=== PATIENT | female | born 1940 | race Caucasian/White ===

== ENCOUNTER 2022-04-29 11:15 | Outpatient (RCR) | payer MEDICARE, SELFPAY | END 2022-04-29 13:04 | disposition home or self-care (01) | PROVIDERS: PCP Family Medicine; Visit Provider Family Medicine | DX: M51.17 Intervertebral disc disorders with radiculopathy, lumbosacral region (principal) | CPT/HCPCS: 97110; 97140; 97162 ==

== ENCOUNTER 2022-05-13 10:20 | Outpatient (CLI) | payer MEDICARE, SELFPAY | END 2022-05-13 10:21 | disposition home or self-care (01) | LOC: INJ CL 10:21 | PROVIDERS: PCP Family Medicine; Visit Provider Family Medicine | DX: M54.16 Radiculopathy, lumbar region (principal); M51.36 Other intervertebral disc degeneration, lumbar region | CPT/HCPCS: 62323; J0702; Q9966 ==

== ENCOUNTER 2023-01-03 16:38 | Emergency (ER) | payer MEDICARE, SELFPAY ==
[2023-01-03 16:49] VITALS: BP 155/66; PULSE 96; RESP 16; TEMP 36.8; O2SAT 95; BMI 27.4
--- NOTE | 2023-01-03 17:24 | ED_ITS ---
HPI - General Adult General Time Seen by Provider: 17:24 Date Seen: 01/03/23 Chief complaint: Sore Throat Stated complaint: Soar throat, unable to swallow, lost voice Time Seen by Provider: 01/03/23 17:07 Source: patient and RN notes reviewed Mode of arrival: ambulatory Limitations: no limitations History of Present Illness HPI narrative: Latonya is an 82-year-old female coming in with severe sore throat prohibiting her from swallowing. She states symptoms started last night. She has not documented a fever but felt chilled earlier today. No GI symptoms with this. Maybe a little cough. She has subsequently lost her voice, developed a hoarse voice. No one else around her is ill at this time. She states they had their son in here but a week ago, ended up with a heart attack and had 3 stents placed. They just brought him home recently. She is worried he might get this. She is having a difficult time even swallowing fluids. When she swallows it hurts in her upper throat, both sides. She did get some Cepacol lozenges and that did help, was able to take 2 Tylenol about 2:00 p.m.. She states she was able to eat and drink a little then. She does note that it wears off and reviewed with her that that is going to be the likely course until she starts improving overall. Patient takes a daily diclofenac as well, avoids NSAIDs because of this. Last week she had some sinus symptoms, is unsure if it relates to current symptoms but those did seem to resolve. Related Data Home Medications Medication Instructions Recorded Confirmed albuterol sulfate 90 mcg/actuation 1 - 2 puff inhalation Q4H PRN 01/03/23 01/03/23 aerosol inhaler dyspnea estradiol 10 mcg vaginal tablet 10 mcg vaginal 3XW 01/03/23 01/03/23 (Yuvafem) losartan 50 mg tablet 50 mg PO DAILY 01/03/23 01/03/23 pregabalin 50 mg capsule 50 mg PO QPM 01/03/23 01/03/23 rosuvastatin 10 mg tablet 10 mg PO QPM 01/03/23 01/03/23 Allergies Allergy/AdvReac Type Severity Reaction Status Date / Time aluminum Allergy Verified 05/13/22 10:50 cefuroxime [From Ceftin] Allergy Verified 05/13/22 10:50 diphtheria toxoid,fluid Allergy Verified 05/13/22 10:50 doxycycline Allergy Verified 05/13/22 10:50 gabapentin Allergy Verified 05/13/22 10:50 grass pollen Allergy Verified 05/13/22 10:50 lisinopril Allergy Verified 05/13/22 10:50 mold Allergy Verified 05/13/22 10:50 Penicillins Allergy Verified 05/13/22 10:50 pneumococcal 7-valent Allergy Verified 05/13/22 10:50 conjugate to [From Prevnar] pneumococcal vaccine Allergy Verified 05/13/22 10:50 Sulfa (Sulfonamide Allergy Verified 05/13/22 10:50 Antibiotics) Review of Systems Status of ROS: Reports: 6 or more systems reviewed and unremarkable except as noted in History and below PFSH PFS Social History Smoking Status: Never smoker Do you use any of these nicotine containing products: None Second hand tobacco smoke exposure: No How often do you have a drink containing alcohol: never AUDIT-C Alcohol total score: 0 Non-prescribed substance use: denies use service: No Exam Const: Vital Signs, click to edit/add: Vital Signs - 24 hr 01/03/23 16:49 01/03/23 17:34 01/03/23 18:04 Temperature 98.2 F Pulse Rate 72 Pulse Rate [Pulse Oximeter] 96 Respiratory Rate 16 Blood Pressure 144/68 H Blood Pressure [Ri ght Upper Arm] 155/66 H Pulse Oximetry 95 94 94 Oxygen Delivery Me thod Room Air 01/03/23 18:05 Temperature Pulse Rate 70 Pulse Rate [Pulse Oximeter] Respiratory Rate Blood Pressure Blood Pressure [Ri ght Upper Arm] Pulse Oximetry 94 Oxygen Delivery Me thod Documenting provider has reviewed patient's vital signs: yes Common n ormals: no apparent distress, average body habitus, oriented x3, no limitations, healthy appearing, alert and well nourished General appearance: cooperative, comfortable, well kempt and well developed Nutritional appearance: thin Other: 82-year-old female with voice hoarseness but able to speak in complete sentences. No trismus, able to manage secretions. HENMT: Common normals: normocephalic, head/scalp atraumatic, hearing grossly normal bilaterally, external nose normal, nasal mucous membranes and turbinates normal, moist oral mucous membranes, oropharynx normal, dentition normal and gingiva normal Head and scalp: normocephalic and atraumatic Face and sinus: normal facial exam Nose: external nose normal and nasal mucous membranes and turbinates normal Mouth: oral and palatal mucosa normal, lip normal and tongue normal Throat: posterior oropharynx normal Eye: Common normals: PERRL, EOMs intact bilaterally, conjunctivae normal and no scleral icterus Conjunctiva: conjunctiva(e) normal Pupil: PERRL Neck & C-Spine: Common normals: full ROM, no lymphadenopathy, supple, no meningeal signs, no JVD and thyroid normal Thyroid: thyroid normal Resp: Common normals: normal respiratory effort, no retractions, no use of accessory muscles and clear to auscultation bilaterally Auscultation: clear to auscultation bilaterally Cardio: Common normals: no JVD, regular rate, regular rhythm, S1 normal heart sound, S2 normal heart sound, no gallops, no clicks and no murmurs Rate: regular rate Rhythm: regular rhythm Heart sounds: S1 normal and S2 normal Neuro: Common normals: oriented x3 Sensorium/orientation: alert Meningeal signs: no meningeal signs Psych: Appearance: well kempt Course Course Hospital Course: COVID and strep were ordered in triage. We are waiting those back. I will place an IV in this patient, give her some IV fluids and get some baseline labs as well. This likely represents a viral entity but need to consider other alternate bacterial pathology. We will see what her lab results are, COVID testing shows and guide therapy accordingly. May need to consider soft tissue neck CT. Reevaluation(s) Reevaluation #1: Reviewed labs with patient. Overall her white blood count is normal, C-reactive protein is normal, no strep, negative COVID and influenza. We did review that laryngitis is almost always affiliated with viral disease. I am awaiting her procalcitonin to help further differentiate whether antibiotics need to be considered. Really her main concern at this time is the pain. She has tolerated narcotics. Am going to give her 2.5 mg oral oxycodone liquid to see if we can help her get through these and initial symptoms. If the procalcitonin is normal, further supports this being viral and I do not think further testing or any imaging is indicated at this time. Time: 18:34 Reevaluation #2: Procalcitonin is 0.05, certainly normal and not indicative of any need for antibiotics. I have reviewed discharge with patient, nursing staff is subsequently going over discharge material with patient. 10 tablets of oxycodone 5mg sent home from [email or web address] for severe pain control (smallest number available currently). Did review side effects and specifically constipation with these medications. She is requesting to go home. She notes that she is developing more cough as she has been here. Reviewed that this is the typical course I would expect, hopefully the sore throat will improve over the next 24-48 hours. Time: 18:59 Vital Signs Vital signs: Initial Vital Signs Temperature 98.2 F 01/03/23 16:49 Temperature Source Temporal Artery Scan 01/03/23 16:49 Pulse Rate 96 01/03/23 16:49 Respiratory Rate 16 01/03/23 16:49 Blood Pressure 155/66 H 01/03/23 16:49 Blood Pressure Mean 95 01/03/23 16:49 Blood Pressure Position Sitting 01/03/23 16:49 Pulse Oximetry 95 01/03/23 16:49 Oxygen Delivery Method Room Air 01/03/23 16:49 Vital Signs Temperature 98.2 F 01/03/23 16:49 Pulse Rate 96 01/03/23 16:49 Respiratory Rate 16 01/03/23 16:49 Blood Pressure 155/66 H 01/03/23 16:49 Pulse Oximetry 95 01/03/23 16:49 Oxygen Delivery Method Room Air 01/03/23 16:49 Temperature 98.2 F 01/03/23 16:49 Pulse Rate 70 01/03/23 18:05 Respiratory Rate 16 01/03/23 16:49 Blood Pressure 144/68 H 01/03/23 18:04 Pulse Oximetry 94 01/03/23 18:05 Oxygen Delivery Method Room Air 01/03/23 16:49 Medical Decision Making Lab Data Lab results reviewed: Yes I reviewed the patient's lab results Labs: Lab Results 01/03/23 01/03/23 Range/Units 17:00 17:40 WBC 9.58 (4.50-11.00) K/uL RBC 4.22 (4.00-5.20) m/uL Hgb 13.2 (12.0-16.0) gm/dL Hct 40.4 (33.0-51.0) % MCV 96 (80-100) fL MCH 31 (26-34) pg MCHC 33 (32-36) gm/dL RDW Coeff of Edis 12.7 (11.5-15.5) % Plt Count 263 (140-440) K/uL Neut % (Auto) 78.5 H (42.0-72.0) % Lymph % (Auto) 13.9 L (20-44) % [place] % (Auto) 5.8 (0.0-11.0) % Eos % (Auto) 1.4 (0.0-7.0) % Baso % (Auto) 0.3 (0.0-3.0) % Neut # (Auto) 7.50 H (1.7-7.0) K/uL Lymph # (Auto) 1.30 (0.90-2.90) K/uL [place] # (Auto) 0.60 (0.00-0.90) K/UL Eos # (Auto) 0.13 (0.00-0.50) K/uL Baso # (Auto) 0.03 (0.00-0.30) K/uL Sodium 140 (135-149) mmol/L Potassium 4.0 (3.6-5.1) mmol/L Chloride 109 (96-114) mmol/L Carbon Dioxide 24 (20-32) mmol/L BUN 17 (7-30) mg/dL Creatinine 0.7 (0.5-1.5) mg/dL Estimated Creat Clear 34.90 Estimated GFR 87 ml/min Glucose 115 (60-115) mg/dL Calcium 9.6 (8.4-10.6) mg/dL C-Reactive Protein 0.8 (0.5-1.0) mg/dL Procalcitonin 0.05 (<0.50) ng/mL SARS-CoV-2 (PCR) Negative SARS-CoV-2 (Negative) Influenza Type A (PCR) Negative PCR FLU A (Negative) Influenza Type B (PCR) Negative PCR FLU B (Negative) Group A Strep DNA NOT DETECTED (Not Detectd) Critical Care Time Critical Care Time Critical Care Time: No Discharge Plan Discharge Clinical Impression: Laryngitis, Acute viral pharyngitis Patient Disposition: Home, Self-Care Condition: Stable Instructions: Pharyngitis (ED) Additional Instructions: Take small frequent sips of fluids while awake, can try cold or hot and see if that helps you with swallowing. Tylenol 1000 mg 3 times a day for baseline pain control. Can use oxycodone 2.5-5 mg per prescription instructions for more sev ere pain. See how you are feeling in the next 24-48 hours. Hopefully the sore throat will start to improve but other cold symptoms in the laryngitis are likely to continue. If the sore throat is progressively worsening, is uncontrolled by this outlined pain management regimen, start to develop fevers with these symptoms, do want you to return to the ER. I would certainly consider imaging and repeat blood work if you have worsening symptoms. Activity Level: Activity as Tolerated Discharge Diet: Regular Prescriptions: No Action losartan 50 mg tablet 50 mg PO DAILY albuterol sulfate 90 mcg/actuation HFA aerosol inhaler 1 - 2 puff INHALATION Q4H PRN (Reason: dyspnea) rosuvastatin 10 mg tablet 10 mg PO QPM pregabalin 50 mg capsule 50 mg PO QPM estradiol [Yuvafem] 10 mcg tablet 10 mcg vaginal 3XW Follow Up/Referrals: Vaishali Baeza MD [Primary Care Provider] - Stand Alone Forms: [employer] Info Instructions
[2023-01-03 17:34] VITALS: O2SAT 94
[2023-01-03 17:38] LABS: Strep A DNA Probe* NOT DETECTED (Not Detectd)
[2023-01-03 17:45] LABS: PCR FLU A Negative PCR FLU A (Negative); PCR FLU B Negative PCR FLU B (Negative)
[2023-01-03 17:52] LABS: Basophils Absolute Auto 0.03 K/uL (0.00-0.30); Basophils Percent Auto 0.3 % (0.0-3.0); Eosinophils Absolute Auto 0.13 K/uL (0.00-0.50); Eosinophils Percent Auto 1.4 % (0.0-7.0); Hematocrit 40.4 % (33.0-51.0); Hemoglobin* 13.2 gm/dL (12.0-16.0); Immature Granulocytes Abs Auto 0.01 K/uL (0.00-0.30); Immature Granulocytes Pct Auto 0.1 %; Lymphocytes Percent Auto 13.9 % (20-44); Mean Corpuscular HGB Conc 33 gm/dL (32-36); Mean Corpuscular Hemoglobin 31 pg (26-34); Mean Corpuscular Volume 96 fL (80-100); Monocytes Percent Auto 5.8 % (0.0-11.0); Neutrophils Percent Auto 78.5 % (42.0-72.0); Platelet Count* 263 K/uL (140-440); RDW Coefficient of Variation % 12.7 % (11.5-15.5); Red Blood Count 4.22 m/uL (4.00-5.20); White Blood Count* 9.58 K/uL (4.50-11.00)
[2023-01-03] MEDS: 0.9 % SODIUM CHLORIDE 500 ML 500 ML IV (17:54)
[2023-01-03 18:04] VITALS: BP 144/68; PULSE 72; O2SAT 94
[2023-01-03 18:05] VITALS: PULSE 70; O2SAT 94
[2023-01-03 18:06] LABS: Slide Review Reflex No
[2023-01-03 18:09] LABS: Chloride* 109 mmol/L (96-114)
[2023-01-03 18:10] LABS: Sodium* 140 mmol/L (135-149)
[2023-01-03 18:12] LABS: Creatinine* 0.7 mg/dL (0.5-1.5); Estimated Glomerular Filt Rate 87 ml/min
[2023-01-03 18:12] LABS: SARS PCR* Negative SARS-CoV-2 (Negative)
[2023-01-03 18:13] LABS: Blood Urea Nitrogen* 17 mg/dL (7-30); Carbon Dioxide* 24 mmol/L (20-32); Glucose* 115 mg/dL (60-115)
[2023-01-03 18:14] LABS: Calcium* 9.6 mg/dL (8.4-10.6)
[2023-01-03 18:16] LABS: C Reactive Protein* 0.8 mg/dL (0.5-1.0)
[2023-01-03 18:30] VITALS: PULSE 73; O2SAT 94
[2023-01-03 18:30] LABS: Procalcitonin* 0.05 ng/mL (<0.50)
[2023-01-03 18:32] VITALS: BP 145/106; PULSE 72; O2SAT 95
[2023-01-03] MEDS: OXYCODONE 1 MG/ML ORAL SOLN 2.5 MG PO (19:07)
--- NOTE | 2023-01-04 15:45 | ED.NURSE ---
Pt called back asking about if she should come back in as her throat still hurts and she still has a productive cough. Pt felt as if oxycodone was not helping to control her pain. Television Maintenance Man reviewed discharge instructions again with pt regarding what pt should return to be seen for and pt stated she will think about whether to come back in.
== END 2023-01-03 19:11 | disposition home or self-care (01) ==
PROVIDERS: Family Medicine; Emergency Provider Family Medicine; PCP Family Medicine
DX: Z20.822 Contact with and (suspected) exposure to COVID-19 (principal); J04.0 Acute laryngitis; J02.9 Acute pharyngitis, unspecified
CPT/HCPCS: 36415; 80048; 84145; 85025; 86140; 87040; 87631; 87651; 94761; 96360; 99284; A9270; J7120

== ENCOUNTER 2023-08-05 13:41 | Outpatient (RCR) | payer MEDICARE, SELFPAY | END 2023-12-03 23:59 | disposition home or self-care (01) | PROVIDERS: PCP Family Medicine; Visit Provider Family Medicine | DX: R49.8 Other voice and resonance disorders (principal); Z51.89 Encounter for other specified aftercare ==

== ENCOUNTER 2023-09-08 09:44 | Outpatient (CLI) | payer MEDICARE, SELFPAY | END 2023-09-08 09:45 | disposition home or self-care (01) | LOC: INJ CL 09:45 | PROVIDERS: PCP Family Medicine; Visit Provider Family Medicine | DX: M51.36 Other intervertebral disc degeneration, lumbar region (principal); M54.16 Radiculopathy, lumbar region | CPT/HCPCS: 62323; J0702; Q9966 ==

== ENCOUNTER 2023-10-20 09:09 | Outpatient (CLI) | payer MEDICARE, SELFPAY | END 2023-10-20 09:10 | disposition home or self-care (01) | LOC: INJ CL 09:09 | PROVIDERS: PCP Family Medicine; Visit Provider Family Medicine | DX: M54.16 Radiculopathy, lumbar region (principal); M51.36 Other intervertebral disc degeneration, lumbar region | CPT/HCPCS: 64483; J1100; Q9966 ==

== ENCOUNTER 2023-11-21 17:57 | Emergency (ER) | payer MEDICARE, SELFPAY ==
[2023-11-21 18:01] VITALS: BP 132/79; PULSE 75; RESP 18; TEMP 37.2; BMI 27.4
[2023-11-21 18:22] VITALS: O2SAT 96
--- NOTE | 2023-11-21 18:22 | CT_ITS ---
Patient: GALLITO WRIGHT Facility:?[facility] Patient ID:?[id number] Site Patient ID:?[id number]. Site :?1940 Study:?CT-Head Angio W/ STROKE PROTOCOL-11/21/2023 6:56:30 PM Ordering Physician:ASHLEE Final Report: INDICATION: LEFT ARM WEAKNESS 1. No evidence of proximal artery occlusion, high grade stenosis, aneurysm, dissection, or vascular malformation. 2. Mild-moderate right P1 GLASS BLOWER narrowing. Final report per neurointerventional radiology service. Prelim Report By Dr. Sea Devine @ 11/21/2023 7:07:51 PM ADDENDUM TECHNIQUE: CTA head with contrast bolus tracking, 3D angiographic rendering using maximum intensity projection (MIP) and images permanently archived. FINDINGS: There is scattered intracranial atherosclerosis. There is no large vessel occlusion. There is otherwise normal opacification of the intracranial vasculature. No aneurysm is identified. IMPRESSION: No large vessel occlusion. Please note that all CT scans at this facility use dose modulation, iterative reconstruction, and/or weight-based dosing when appropriate to reduce radiation dose to as low as reasonably achievable. Dictated by: James Alvarez MD @ 11/22/2023 16:21:04 Signed by:?James Alvarez MD @11/22/2023 4:21:04 PM (Electronic Signature)
--- NOTE | 2023-11-21 18:22 | CT_ITS ---
Patient: GALLITO WRIGHT Facility:?[facility] Patient ID:?[id number] Site Patient ID:?[id number]. Site :?1940 Study:?CT-Head W/O STROKE PROTOCOL-11/21/2023 6:42:21 PM Ordering Physician:ASHLEE Final Report: INDICATION: Left arm weakness. TECHNIQUE: CT of the head without contrast. Coronal and sagittal reformats. Bone and soft tissue algorithms. COMPARISON: No prior studies available for comparison at this institution. FINDINGS: No acute intracranial hemorrhage or extra-axial collection. No evidence of acute cortical infarction. 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 No mass effect or midline shift. Moderate parenchymal volume loss. Mild regions of decreased attenuation within the periventricular and subcortical white matter of both cerebral hemispheres most likely reflects chronic microvascular ischemic disease and age related change in this patient. Vascular calcifications within the carotid siphons. Orbital contents are normal. No calvarial fractures. No lytic or sclerotic osseous lesions within the calvarium or skull base. Scalp and other imaged soft tissue structures are normal. Mastoid air cells are clear. IMPRESSION: 1. No acute intracranial abnormality. 2. 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 Please note that all CT scans at this facility use dose modulation, iterative reconstruction, and/or weight-based dosing when appropriate to reduce radiation dose to as low as reasonably achievable. Dictated by Sea Devine MD @ 11/21/2023 6:56:56 PM ----- ADDENDUM ----- Addendum: Results Communication by Fax: The results were conveyed by fax to Dr. Bliss on 11/21/2023 at 7:07 pm, with confirmation of fax receipt. Dictated by Sea Devine MD @ Nov 21 2023 9:17PM Signed by:?Sea Devine MD @11/21/2023 6:56:56 PM (Electronic Signature)
--- NOTE | 2023-11-21 18:22 | CT_ITS ---
Patient: GALLITO WRIGHT Facility:?[facility] Patient ID:?[id number] Site Patient ID:?[id number]. Site :?1940 Study:?CT-Neck Angio W/ STROKE PROTOCOL-11/21/2023 6:56:45 PM Ordering Physician:ASHLEE Final Report: INDICATION: LEFT ARM WEAKNESS 1. No evidence of proximal artery occlusion, high grade stenosis, aneurysm, dissection, or vascular malformation. 2. Final report per neurointerventional radiology service. Prelim Report By Dr. Sea Devine @ 11/21/2023 7:07:09 PM ADDENDUM TECHNIQUE: CTA neck with contrast bolus tracking, 3D angiographic rendering using maximum intensity projection (MIP) and images permanently archived. FINDINGS: There is carotid atherosclerosis with a plaque in the proximal right ICA resulting in a moderate 50% stenosis by NASCET. There is no significant left carotid artery stenosis or dissection. There is no significant vertebral artery stenosis or dissection. The soft tissues are within normal limits. The cervical spine is in normal alignment. Degenerative changes are incidentally noted in the cervical spine. IMPRESSION: Moderate proximal right ICA stenosis, 50% by NASCET. Please note that all CT scans at this facility use dose modulation, iterative reconstruction, and/or weight-based dosing when appropriate to reduce radiation dose to as low as reasonably achievable. Dictated by: James Alvarez MD @ 11/22/2023 16:23:48 Signed by:?James Alvarez MD @11/22/2023 4:23:48 PM (Electronic Signature)
[2023-11-21 18:40] LABS: Basophils Absolute Auto 0.04 K/uL (0.00-0.30); Basophils Percent Auto 0.7 % (0.0-3.0); Eosinophils Absolute Auto 0.16 K/uL (0.00-0.50); Eosinophils Percent Auto 2.6 % (0.0-7.0); Hematocrit 40.8 % (33.0-51.0); Hemoglobin* 12.9 gm/dL (12.0-16.0); Immature Granulocytes Abs Auto 0.01 K/uL (0.00-0.30); Immature Granulocytes Pct Auto 0.2 %; Lymphocytes Absolute Auto 1.71 K/uL (0.90-2.90); Mean Corpuscular HGB Conc 32 gm/dL (32-36); Mean Corpuscular Hemoglobin 31 pg (26-34); Mean Corpuscular Volume 98 fL (80-100); Monocytes Percent Auto 7.7 % (0.0-11.0); Neutrophils Absolute Auto 3.71 K/uL (1.7-7.0); Neutrophils Percent Auto 60.8 % (42.0-72.0); Platelet Count* 275 K/uL (140-440); RDW Coefficient of Variation % 13.2 % (11.5-15.5); Red Blood Count 4.18 m/uL (4.00-5.20)
[2023-11-21 18:43] LABS: Slide Review Reflex No
[2023-11-21 19:04] LABS: Albumin* 4.6 g/dL (3.3-5.0)
[2023-11-21 19:05] LABS: Chloride* 111 mmol/L (96-114); Potassium* 4.2 mmol/L (3.6-5.1); Sodium* 138 mmol/L (135-149)
[2023-11-21 19:07] LABS: Anion Gap 6 mEq/L (7-15); Bilirubin Direct* 0.1 mg/dL (0.0-0.5); Bilirubin Total* 0.2 mg/dL (0.1-1.5); Carbon Dioxide* 21 mmol/L (20-32); Creatinine* 0.7 mg/dL (0.5-1.5); Estimated Glomerular Filt Rate 86 ml/min
[2023-11-21 19:08] LABS: Alanine Aminotransferase* 17 U/L (4-35); Alkaline Phosphatase* 63 U/L (40-150); Aspartate Amino Transferase* 20 U/L (12-35); Blood Urea Nitrogen* 20 mg/dL (7-30); Calcium* 9.2 mg/dL (8.4-10.6); Glucose* 118 mg/dL (60-115)
[2023-11-21 19:16] LABS: Troponin I* < 0.01 ng/mL (0.01-0.04)
--- OUTSIDE RECORDS SUMMARY | 2023-11-21 19:23 | XMS_ITS | Continuity of Care Document ---
Author Name Unknown Organization [facility] Address [address] [place] [address] Phone Care Team Providers Care Wireless Field Technician Name Role Phone Dinesh Sears Unavailable Unavailable Allergies, Adverse Reactions, Alerts Substance Reaction Status Criticality gabapentin Active No Information Sulfa (Sulfonamide Antibiotics) Active No Information PENICILLIN Active No Information Medications Medication Instructions Dosage Effective Dates (start - stop) Status Comments Medrol (Laz) 4 mg tablets in a dose pack take by Oral route Take as directed Not Available - Active Procedures Procedure Date Office/Outpatient Visit,[facility] 2017 Advance Directives Directive Yes / No Effective Date File Name No Information Encounters Encounter Description Practice Location Reason(s) For Visit Diagnoses Date Provider Providers Copied on Encounter [facility], [address], [place], [place], [id number], [place] tel:[phone] [facility] No Information Demetrio Montiel. [facility], [address], [place], [place], [id number], [place]. tel:[phone] Office/Outpat ient Visit,[facility], [facility], [address], [place], [place], [id number], [place] tel:[phone] [facility] Spondylolisth esis, cervical region Demetrio Montiel. [facility], [address], [place], [place], [id number], [place]. tel:[phone] Referring Provider: Vaishali Baeza , [address], [place], [address]. tel:[phone] Family History Family Member Type Diagnosis Age At Onset No Information Payers Payer name Insurance type Covered democrat ID Jonas robertson(s) [facility] [id number] Medicare Dominguez [id number] Social History Type Description Quantity Date Captured [...]
--- OUTSIDE RECORDS SUMMARY | 2023-11-21 19:23 | XMS_ITS | Continuity of Care Document ---
Author Name Unknown Organization [facility] Address [address] [place] [address] Phone Care Team Providers Care Councilperson Name Role Phone Sarah Grant MD Unavailable Unavailable Allergies, Adverse Reactions, Alerts Substance Reaction Status Criticality lisinopril Active No Information Penicillins Active No Information Medications Medication Instructions Dosage Effective Dates (start - stop) Status Comments Nutritional Supplement Oral Liquid 1-3 times daily, sublingual allergy drops - Active Advil 200 mg Tab 4-6 tablets daily - Activ e NASAL SPRAY (unknown strength) Not Available - Active Vitamin D3 1,000 unit Tab take 1 Tablet by Oral route every day 1 Tablet - Active CALCIUM + VIT D (unknown strength) take 1 by Oral route every day Not Available - Active Fish Oil 500 mg Cap take 2 Capsule by Oral route every day 2 Capsule - Active Co Q-10 100 mg Cap take 1 Tablet by Oral route every day 1 Tablet - Active Mikayla 180 mg Tab take 1 tablet (180MG) by oral route every day - Active losartan 50 mg Tab take 1 tablet (50MG) by oral route every day 50 MG - Active pravastatin 40 mg Tab take 1 tablet (40MG) by oral route every day 40 MG - Active Procedures Procedure Date Office/Outpatient Visit, [...] [facility], [address], [place], [address], [place] tel:[phone] [facility] , No Information 3 Rudy Smith. [facility] [address], [place], [address], [place]. tel:[phone] Office/Outpa tient Visit, [facility], [address], [place], [address], [place] tel:[phone] [facility] , Pain All Over (chief complaint) Hallux rigidusPain in joint involving multiple sitesFatigue / MalaiseMyalg ia and myositis, unspecified 3 Rudy Smith. [facility] [address], [place], [address], [place]. tel:[phone] Referring Provider: Sarah Haider, [facility] [address], [place], [address]. tel:[phone] [facility], [address], [place], [address], [place] tel:[phone] [facility] , No Information 3 Rudy Smith. [facility] [address], [place], [address], [place]. tel:[phone] Family History Family Member Type Diagnosis Age At Onset mother Problem (finding) osteoarthritis Payers Payer name Insurance type Covered libertarian ID Authoriza tion(s) [employer] Advantage/[employer] [id number] Social History Type Description Quantity Date Captured [...]
--- OUTSIDE RECORDS SUMMARY | 2023-11-21 19:25 | XMS_ITS | Encounter Summary ---
Author Name Unknown Organization [facility] Address [address] [place] [id number] Care Team Providers Care Contract Manager Name Role Phone Elsewhere, Pcp Primary Care Provider Unavailabl e Encounter Details Date Type Department Care Team (Late st Contact Info) Description 02/11/2023 Documentation Division of Breast and Melanoma Surgical Oncology in [place], [place] [address] [place] [phone] Angela Mathis M.D. [address] [place] [address] Social History Tobacco Use Types Packs/Day Years Used Date Smoking Tobacco: Never Smokeless Tobacco: Never Alcohol Use Standard Drinks/Week Comments Yes 7 (1 standard drink = 0.6 oz pur e alcohol) Daily caffeine Humiliation, Afraid, Rape, and Kick questionnair e Answer Date Recorded Within the last year, have y ou been afraid of your partner or ex-partner? No 09/27/2022 Within the last year, have y ou been humiliated or emotionally abused in other ways by your partner or ex-partner? No Within the last year, have y ou been kicked, hit, slapped, or otherwise physically hurt by your partner or ex-partner? No 09/27/2022 Within the last year, have y ou been raped or forced to have any kind of sexual activity by your partner or ex-partner? No 09/27/2022 Social Connection and Isolat ion Panel [NHANES] Answer Date Recorded In a typical week, how many times do you talk on the phone with family, friends, or neighbors? More than three times a week 09/27/2022 How often do you get togethe r with friends or relatives? Three times a week 09/27/2022 How often do you attend chur ch or presybeterian services? More than 4 times per year 09/27/2022 Do you belong to any clubs o r organizations such as hindu groups, unions, fraternal or athletic groups, or school groups? Yes 09/27/2022 How often do you attend meet ings of the clubs or organizations you belong to? More than 4 times per year 09/27/2022 Are you , , di vorced, , never , or living with a partner? 09/27/2022 AUDIT-C Answer Date Recorded Q1: How often do you have a drink containing alcohol? 4 or more times a week 09/27/2022 Q2: How many drinks containi ng alcohol do you have on a typical day when you are drinking? 1 or 2 3 Q3: How often do you have si x or more drinks on one occasion? Never 09/27/2022 Overall Financial Resource Strain (CARDIA) Answe r Date Recorded How hard is it for you to pa y for the very basics like food, housing, medical care, and heating? Not hard at all 09/27/2022 [facility] - Occupational Stress Questionnaire Answer Date Recorded Do you feel stress - tense, restless, nervous, or anxious, or unable to sleep at night because your mind is troubled all the time - these days? Not at all 09/27/2022 Exercise Vital Sign Answer Date Recorde d On average, how many days pe r week do you engage in moderate to strenuous exercise (like a brisk walk)? 0 days 09/27/2022 On average, how many minutes do you engage in exercise at this level? 30 min 09/27/2022 Hunger Vital Sign Answer Date Recorded Within the past 12 months, y ou worried that your food would run out before you got the money to buy more. Never true 09/27/19 23 Ran Out of Food in the Last Year Not on file 09/27/2022 PRAPARE - Transportation Answer Date Re corded In the past 12 months, has l ack of transportation kept you from medical appointments or from getting medications? No 09/10 In the past 12 months, has l ack of transportation kept you from meetings, work, or from getting things needed for daily living? No 09/27/2022 Housing Stability Vital Sign Answer Sylvester e Recorded In the last 12 months, was t here a time when you were not able to pay the mortgage or rent on time? No 09/27/2022 In the last 12 months, how many places have you lived? 1 09/27/2022 In the last 12 months, was t here a time when you did not have a steady place to sleep or slept in a mcc (including now)? No 09/27/2022 Nutrition Answer Date Recorded Nutrition: EVOO Fat Source No 09/27 On average, how many serving s of fruits and vegetables do you eat per day (serving size is equal to 1 cup or approximately the size of a tennis ball)? 4-5 09/27/2022 Dental Answer Date Recorded Dental: Regular Dentist Yes 08/13/19 Employment Answer Date Recorded Employment status Retired 09/27/2022 Education Answer Date Recorded What is the highest level of school you have completed or the highest degree you have received? Associate degree: occupational, technical, or vocational program 09/27/2022 Sex and Gender Information Value Date Recorded Sex Assigned at Female 06/28/2018 10:53 AM TELEPHONE SEX WORKER Gender Identity Female 06/28/2018 10:53 AM TELEPHONE SEX WORKER Sexual Orientation Straight 06/28/2018 10 :53 AM TELEPHONE SEX WORKER documented as of this encounter Plan of Treatment Not on file documented as of this encounter Visit Diagnoses Not on filedocumented in this encounter Care Teams Contract Manager Relationship Specialty Start Date End Date Elsewhere, Pcp PCP - General Family Medicine 06/04/21 documented as of this encounter
--- OUTSIDE RECORDS SUMMARY | 2023-11-21 19:25 | XMS_ITS | Referral Summary ---
Author Name Unknown Organization [facility] Address [address] [place] [address] Care Team Providers Care Manager Of Regulatory Affairs Name Role Phone Elsewhere, Pcp Primary Care Provider Unavailabl e Source Comments Patient records contain information from all sites at [facility]. For routine questions regarding patient records, call [phone] during business hours, M-F 8:00 AM - 5:00 PM Central Time. Record requests for emergency care only can be directed to [phone] at any time.[facility] Encounters Date Type Department Care Team Description 08/25/2023 10:40 AM CERTIFIED ORTHOPTIST Comprehensive Visit Department of Dermatology in [place], [place] [address] [place] [address] Darlene Orlando M.D. Handfield, Chelsea N, M.D. Personal History Of Malignant Melanoma Of Skin (Primary Dx); Keratosis Seborrheic; Photodamage; Keratosis Seborrheic Inflamed from Last 3 Months Allergies Active Allergy Reactions Criticality Noted Date Comments Aluminum Myalgia 03/27/2020 Cat Dander Itching 12/11/2009 Cat hair. Itching, pruritus. Corynebacterium Diphtheriae Myalgia 03/27/2020 Doxycycline GI intolerance,Other (see comments) 11/04/2016 Gabapentin Other (see comments) 10/16/2017 Grass Pollen Other (see comments) 05/05/2017 Sneezing. House Dust Mite Itching 12/11/2009 Dust. Itching, pruritus. Lisinopril Cough,Other (see comments) 01/09/2010 Mold Other (see comments) 05/05/2017 Sneezing. Penicillins Rash 03/08/2009 Pneumococcal Vaccine Myalgia 12/31/2017 Sulfa (Sulfonamide Antibiotics) Rash 05/05/2017 Tree And Shrub Pollen Other (see comments) 05/05/2017 Sneezing. Medications Medication Sig Dispensed Refills Start Date End Date Status calcium carbonate-vitamin D3 200 mg (500 mg) -400 unit capsule Take 2 tablets by mouth at bedtime. 05/05/2017 Active cholecalciferol (VITAMIN D3) 50 mcg (2,000 Unit) capsule Take 50 mcg by mouth daily. 05/05/2017 Active Lactobacillus rhamnosus GG (CULTURELLE) 10 billion cell capsule Take 1 capsule by mouth daily. 05/05/2017 Active losartan (COZAAR) 50 mg tablet Take 50 mg by mouth at bedtime. 05/05/2017 Active rosuvastatin (CRESTOR) 10 mg tablet Take 10 mg by mouth at bedtime. 05/05/2017 Active albuterol 90 mcg/actuation inhaler Inhale 2 puffs every 4 (four) hours as needed for shortness of breath. 02/26/2021 Active Yuvafem 10 mcg vaginal tablet Insert 10 mcg into the vagina 3 (three) times a week. 04/06/2021 Active acetaminophen (TYLENOL) 500 mg tablet Take 1,000 mg by mouth every 6 (six) hours as needed for pain. Alternates with ibuprofen Active diclofenac sodium (VOLTAREN) 75 mg EC tablet Take 75 mg by mouth daily. 04/24/2022 Active co-enzyme Q-10 (CO Q-10) 100 mg capsule Take 100 mg by mouth daily. Active aspirin [address] tablet Take 81 mg by mouth daily. 03/24/2023 Active loratadine (CLARITIN) 10 mg tablet Take 10 mg by mouth daily. 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 Retina flat. Intraocular pressure acceptable. ? ? OK off drops ? ? Doing well with no correction--happy with vision! ? ? Continue to address dry eyes with artificial tears and dry eye mask (e.g., Thermalon) 5 min at night for meibomian gland dysfunction ? ? Discussed with patient retinal detachment precautions Intraocular Lens Implant Status Post 04/10/2021 Last Assessment & Plan: Multifocal lenses both eyes, centered and stable Immunizations Name Administration Dates Next Due HZV (ZOSTAVAX) 05/10/2013 Influenza (IM) Preservative Free 06/08/2012,04/11 Influenza TIV (IM) 06/03/2016, 1,05/02/2010,2008 Influenza, Injectable, Quadrivalent 05/13/2017 Influenza, Seasonal, Injectable 06/03/2016,06/08,04/20/2009 PCV13 12/18/2015 PPSV23(Discontinued) 05/02/2010 RZV (SHINGRIX) 06/13/2019,03/09/2019 SARS-COV-2 (COVID-19) - PFIZ ER TS(Discontinued)(12 years or older) 11/25/2021 Td Preservative Free (TENIVA C, DECAVAC) 03/31/2007 Tdap 04/23/2019,02/13/2006 influenza high dose (65 year s or older) (PF) 05/14/2018 influenza vaccine quad (FLUZONE/FLUARIX) (6 months and older)(PF) 05/29/2021,06/04/2020,06/13/2019,2014,06/06/2014 Social History Tobacco Use Types Packs/Day Years Used Date Smoking Tobacco: Never Smokeless Tobacco: Never Tobacco Cessation:Counseling Given: Not Answered Alcohol Use Standard Drinks/Week Comments Yes 7 [...] week 09/27/2022 How often do you attend [facility] or oriental orthodox services? More than 4 times per year 09/27/2022 Do you belong to any clubs o r organizations such as lutheran groups, unions, fraternal or athletic groups, or [...] and heating? Not hard at all 09/27/2022 [facility] Occupat ional Health - Occupational Stress [...] money to buy more. Never true 09/27/19 Ran Out of Food in the Last [...] place to sleep or slept in a assisted (including now)? No 09/27/2022 Nutrition Answer Date [...] Sex Assigned at Female 06/28/2018 10:53 AM CERTIFIED ORTHOPTIST Gender Identity Female 06/28/2018 10:53 AM CERTIFIED ORTHOPTIST Sexual Orientation Straight 06/28/2018 10 :53 AM CERTIFIED ORTHOPTIST Last Filed Vital Signs Vital Sign Reading Time Taken Comments Blood Pressure 149/64 01/02/2022 4:48 PM CDT Pulse 87 01/02/2022 4:48 PM CDT Temperature 36.2 ??C (97.2 ??F) 01/02/2022 3:35 PM CD T Respiratory Rate 16 01/02/2022 4:00 PM CDT Oxygen Saturation 94% 01/02/2022 4:48 PM CDT Inhaled Oxygen Concentration - - Weight 70.9 kg (156 lb 4.9 oz) 01/02/2022 10:35 AM CDT Height 157 cm (5' 1.81) 01/02/2022 10:35 AM CDT Body Mass Index 28.76 01/02/2022 10:35 AM CDT Plan of Treatment Not on file Medical Devices Implanted Type Area Manager Resource Device Identifier Shelf Expiration Date Model / Serial / Lot Drsg Bilayer Matrix 5x5 - [id number] Implanted:Qty: 1 on 12/17/2021 by Brenda Mansfield D.O. at [facility] Bone or Tissue Left: Leg Integra 05/09/2023 [id number] / / [id number] Conversions - Default Historical Implant Device Implanted:05/05 (Quantity not on file) Hardware e.g. pins/screws /rods Right: Foot Description:Body Location - Foot R. Device Status Text - Hardware. screws. Clp Hrzn Ti 6 Clp Ruel - [id number] Implanted:Qty: 1 on 12/17/2021 by Brenda Mansfield D.O. at [facility] Hardware e.g. pins/screws /rods [employer] [id number] / / Clp Hrzn Ti 6 Clp Sm Red - [id number] Implanted:Qty: 1 on 12/17/2021 by Brenda Mansfield D.O. at [facility] Hardware e.g. pins/screws /rods [employer] / / Clp Hrzn Ti 6 Clp Sm Red - [id number] Implanted:Qty: 1 on 12/17/2021 by Brenda Mansfield D.O. at [facility] Hardware e.g. pins/screws /rods [employer] [id number] 07/21/2026 / [id number] Clp Hrzn Ti 6 Clp Sm Red - [id number] Implanted:Qty: 1 on 12/17/2021 by Brenda Mansfield D.O. at [facility] Hardware e.g. pins/screws /rods [employer] [id number] 06/16/2026 [id number] Hip Implant- 0 Implanted:04/11 (Quantity not on file) Hip Implant Right: Hip Description:Implanted at [facility] Ocular Lens Ocular Lens Bilater al: Eye Procedures Procedure Name Priority Date/Time Associated Diagnosis Comments EXTI BASIC METABOLIC PANEL, S/P Routine 03/05/2023 11:49 AM CDT from Last 3 Months or Most Recently Relevant to Health Maintenance Advance Directives For more information, please contact: [phone] * Full Code (Latest Code Status on File) Date Activated Date Inactivated Comments 12/17/2021 2:23 PM 12/18/2021 4:24 PM Question Answer Comments Full Code: Discussed * Full Code Date Activated Date Inactivated Comments 12/17/2021 5:44 AM 12/17/2021 2:23 PM Question Answer Comments Full Code: Not Discussed Due to: Not medically appropriate Care Teams Manager Of Regulatory Affairs Relationship Specialty Start Date End Date Elsewhere, Pcp PCP - General Family Medicine 06/04/21
--- OUTSIDE RECORDS SUMMARY | 2023-11-21 19:25 | XMS_ITS | Clinical Summary ---
Author Name Unknown Organization [email or web address] Address [place], [place] [address] Care Team Providers Care Oil Well Engineer Name Role Phone Vaishali Baeza MD Primary Care Provide r Lukas Feliz MD Unavailable [phone] Waldo Bethea MD Unavailable Isha Gamble Unavailable Isiah Price MD Unavailable [phone] Allergies Active Allergy Reactions Criticality Noted Date Comments Aluminum Myalgia 03/27/2020 Cat Dander Itching 12/11/2009 Cat hair. Itching, pruritus. Cefuroxime Diarrhea 05/01/2021 Corynebacterium Diphtheriae Myalgia 03/27/2020 Diphtheria Toxoid,Fluid Myalgia 05/13/2022 Doxycycline GI Upset 11/04/2016 Duloxetine Diarrhea 10/11/2019 Gabapentin Dizziness 10/16/2017 Grass Pollen Other - Describe In Comment Field 05/05/2017 Sneezing. House Dust Mite Itching 12/11/2009 Dust. Itching, pruritus. Lisinopril Cough 01/09/2010 Mold Other - Describe In Comment Field 05/05/2017 Sneezing. Penicillins 03/31/2007 Pneumococcal 7-Valent Conjugate To Diphtheria Crm Myalgia 05/13/2022 Pneumococcal Vaccine Myalgia 12/31/2017 Pneumoc 7-Zahida Conj-Dip Cr (Pf) Myalgia 01/01/2016 Sulfa (Sulfonamide Antibiotics) Nausea And Vomiting 11/03/2013 Tree And Shrub Pollen Other - Describe I n Comment Field 05/05/2017 Sneezing. Medications Medication Sig Dispensed Refills Start Date End Date Status COQ-10 30 MG CAP 1 daily 0 11/01/2007 Active Cholecalciferol, Vitamin D3, (VITAMIN D-3) 5,000 unit tab Take 1 tablet by mouth once daily. 0 02/05/2015 Active acetaminophen (TYLENOL EXTRA STRENGTH) 500 mg tablet Take 1 tablet by mouth every 6 hours if needed. Max acetaminophen dose: 4000mg in 24 hrs. 0 03/04/2018 Active lactobacillus rhamnosus, GG, (CULTURELLE) 10 billion cell capsule Take 1 Cap by mouth. 05/05/2017 Active calcium carbonate-vitamin D3 (CALCIUM PETITES) 200 mg (500 mg) -400 unit cap Take 2 Tabs by mouth. 05/05/2017 Active albuterol HFA (PRO-AIR; VENTOLIN; PROVENTIL) 90 mcg/actuation inhalerIndications:B ronchitis Inhale 1-2 Puffs by mouth every 4 hours if needed (cough or shortness of breath). 1 Each 5 07/24/2022 Active losartan (COZAAR) 50 mg tabletIndications:HT N (hypertension) Take 1 Tablet (50 mg) by mouth once daily. 90 Tablet 3 03/05/2023 Active estradioL (Yuvafem) 10 mcg tab vaginal tabletIndications:Va ginitis, atrophic,Bladder prolapse, female, acquired Insert 1 Tablet (10 mcg) into the vagina once daily. Three times per week 36 Tablet 3 03/05/2023 Active aspirin (ECOTRIN) 81 mg enteric coated tabletIndications:St enosis of left carotid artery Take 1 Tablet (81 mg) by mouth once daily with a meal. 0 03/24/2023 Active diclofenac (VOLTAREN) 75 mg delayed-release tabletIndications:Ar thralgia, unspecified joint,Cervicalgia TAKE 1 TABLET BY MOUTH EVERY DAY 90 Tablet 2 04/09/2023 Active rosuvastatin (CRESTOR) 10 mg tabletIndications:Hy perlipidemia, unspecified hyperlipidemia type Take 1 Tablet (10 mg) by mouth at bedtime. 90 Tablet 3 08/04/2023 Active famotidine (PEPCID) 20 mg tabletIndications:Ga stroesophageal reflux disease, unspecified whether esophagitis present Take 1 Tablet (20 mg) by mouth 2 times daily if needed for GI Upset. 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 12 Tablet 10/16/2023 Active Active Problems Problem Noted Date Diagnosed Date Malignant melanoma of skin of lower extremity Overview: Added automatically from request for surgery [id number] Retinal detachment with retinal defect 1 Overview: Last Assessment & Plan: Exam appropriate for post-op month #3. Retina flat. Intraocular pressure acceptable. ? ? OK off drops ? ? Doing well with no correction--happy with vision! Refraction performed last visit. ? ? Continue to address dry eyes with artificial tears and dry eye mask (e.g., Thermalon) 5 min at night for meibomian gland dysfunction ? ? Discussed with patient retinal detachment precautions Vaginal vault prolapse after hysterectomy 2018 OAB (overactive bladder) 02/14/2019 Nocturnal polyuria 02/14/2019 Daytime somnolence 02/14/2019 Fibromyalgia 12/07/2018 DDD (degenerative disc disease), cervical 2017 Left carotid stenosis 03/19/2017 Arthritis of carpometacarpal (CMC) joints of bot h thumbs 02/06/2017 Perforation of left tympanic membrane 05/07/2016 Primary insomnia 07/17/2015 Bladder prolapse, female, acquired 06/19/2015 Hyperlipidemia 02/13/2014 Adverse reaction to sulfa antibiotic 11/03/2013 Personal history of colonic polyps 05/27/2013 Overview: Colonoscopy 05/2013 normal repeat in 5 years Left hip osteoarthritis, with diffuse labral tea r. 12/17/2012 Hallux rigidus of right foot 07/07/2012 KIMBER 07/2009 AHI- 24.8, positional 11/26/2009 HTN (hypertension) 11/13/2009 GERD (gastroesophageal reflux disease) 9 Overview: EGD 08/2010 normal Other and unspecified hyperlipidemia Allergic rhinitis, cause unspecified Malignant melanoma of skin of lower limb, includ ing hip Overview: s/p excision with clear margins Cervicalgia Resolved Problems Problem Noted Date Diagnosed Date Resolved Date Ankle pain with recurrent tendonitis 07/17/2010 07/07/2012 Plantar fasciitis 06/01/2009 07/07/2012 Irritable bowel syndrome 11/2017 Encounters Date Type Department Care Team Description 11/11/2023 2:00 PM CDT Office Visit [facility] [address] [place] [address] Waldo Bethea MD Musculoskeletal Problem (Follow up back pain) 11/11/2023 Travel 10/20/2023 9:40 AM CDT Office Visit [address] [address] Waldo Bethea MD Procedure (Bilateral L5-S1 TFESI) 10/17/2023 Travel 10/12/2023 Telephone [facility] [address] [place] [address] Waldo Bethea MD Prior Authorization (PEER TO PEER REQUESTED) 09/24/[address] [address] Waldo Bethea MD PT. would like a call from her Provider 09/08/2023 10:20 AM LEAD TANK MECHANIC Office Visit [facility] [address] [place] [address] Waldo Bethea MD Procedure (L4-5 ILESI) 09/04/2023 Telephone [facility] [address] [place] [address] Waldo Bethea MD Prior Authorization (LUMBAR SANJUANITA - PEER to PEER NEEDED) 08/31/2023 Telephone [facility] [address] [place] [address] Vaishali Baeza MD Prior Authorization (STEROID INJECTION) 08/27/2023 8:40 AM LEAD TANK MECHANIC Office Visit [address] [address] Vaishali Baeza MD Throat Problem (Cancelled her endoscopy, was starting to feel overwhelmed. Wonders if she is on the right track. Feels about the same, but doing OK./Going to be leaving for 1 month.) 08/27/2023 Travel from Last 3 Months Immunizations Name Administration Dates Next Due AMB Influenza, IIV3 (Age >=3 years) Preserve Free (Flu Clinic Only) 06/08/2012 COVID-19 vaccine (Moderna 100mcg/0.5mL) PF, MDV 05/14/2023 COVID-19 vaccine (Moderna Pietro milton 50mcg/0.25mL) PF, MDV 05/14/2023 COVID-19 vaccine (Pfizer-Bio NTech 30mcg/0.3mL) 12YO+ BIVALENT PF, MDV 05/30/2022 COVID-19 vaccine (Pfizer-Bio NTech 30mcg/0.3mL) 12YO+ STAN-SUCROSE PF, MDV 11/25/2021 COVID-19 vaccine (Pfizer-Bio NTech 30mcg/0.3mL) PF, MDV 10/13/2020,09/22/2020 Influenza Virus, Unspecified 05/02/2010 Influenza, High-dose Inactivated 05/14/2018 Influenza, IIV3 (Age >=3 years) 06/03/20 16,06/08/2011,05/02/2010,04/20 Influenza, IIV4 05/22/2023, 2,05/29/2021,06/04,06/13/2019,05/26/2015,06/06/2014 Influenza, IIV4 (=>6mos) MDV 05/13/2017 Influenza, Inactivated IIV3 (Age 65+ Years) Preserv Free 06/03/2016,06/08/2011,05/02/2010,04/20 Pneumococcal Poly,23-Valent (Pneumovax) 05/02/2010 Pneumococcal conj 13-Valent (Prevnar 13) 12/18/2015 RSV, Recombinant ADJ Reconst ituted (Arexvy 120MCG/0.5mL) 05/22/2023 Td, Preservative Free (age >= 7 Years) 7 Tdap 04/23/2019,02/13/2006 Zoster (Shingrix-RZV, recombinant) 06/13/2019, Zoster (Zostavax-ZVL, live) 05/10/2013 Family History Medical History Relation Name Comments Heart Disease Father DE Other Mother Alzheimers Other Sister 3 fibromyalgia, h yperlipidemia Hypertension Sister 4 Diabetes Sister 5 Cancer-colon Son Cancer-breast No Family History Cancer-ovarian No Family History Relation Name Status Comments Father Mother Sister 1 Alive Sister 2 Alive Sister 3 Sister 4 Sister 5 Son Social History Tobacco Use Types Packs/Day Years Used Date Smoking Tobacco: Never Smokeless Tobacco: Never Tobacco Cessation:Counseling Given: Yes Alcohol Use Standard Drinks/Week Comments Yes 7 (1 standard drink = 0.6 oz pur e alcohol) occasional PHQ-2 Answer Date Recorded PHQ-2 TOTAL SCORE 0 03/05/2023 Social Connections Answer Date Recorded Frequency of Communication with Friends and Fami ly 0 05/04/2023 Financial Resource Strain Answer Date R ecorded Difficulty of Paying Living Expenses 3 05/04/2023 Difficulty of Paying Living Expenses Not on file 05/04/2023 Food Insecurity Answer Date Recorded Worried About Running Out of Food in the Last Ye ar 1 05/04/2023 Transportation Needs Answer Date Record ed Lack of Transportation (Medical) 1 05/04/2023 Housing Stability Answer Date Recorded Unable to Pay for Housing in the Last Year 1 05/04/2023 Sex and Gender Information Value Date Recorded Sex Assigned at Female 08/03/2020 9:53 AM LEAD TANK MECHANIC Gender Identity Female 08/03/2020 9:53 AM LEAD TANK MECHANIC Sexual Orientation Not on file Obstetrics History Para Term AB IAB SAB Ectopic Multiple Livin g Live Births 3 3 2 1 3 3 Date Outcome GA Total Labor Labor/2nd/3rd Weight Sex Delivery Anes PTL Roseanna A1 A5 Name Cl in 1962 Term 4h 00m 3.23 kg (7 lb 2 oz) M Vag Zari ng Rebel 1964 Term 6h 00m 3.18 kg (7 lb) M Vag Zari ng Jacques 1968 1.87 kg (4 lb 2 oz) M Vag Zari ng Frank Last Filed Vital Signs Vital Sign Reading Time Taken Comments Blood Pressure 123/80 11/11/2023 2:17 PM CDT Pulse 84 11/11/2023 2:17 PM CDT Temperature 36.1 ??C (97 ??F) 11/11/2023 2:17 PM CDT Respiratory Rate 16 06/11/2023 2:34 PM CDT Oxygen Saturation 97% 11/11/2023 2:17 PM CDT Inhaled Oxygen Concentration - - Weight 70.5 kg (155 lb 6.4 oz) 08/27/2023 9:04 A M LEAD TANK MECHANIC Height 156.5 cm (5' 1.61) 03/05/2023 10:40 AM C DT Body Mass Index 28.78 03/05/2023 10:40 AM CDT Plan of Treatment Health Maintenance Due Date Last Done Comments BMI (ht and wt on same day) for age 18+ 03/05/2024 03/05/2023, 03/04/2022, 04/30/2021, Additional history exists Depression screening for age 12+ 03/05/2024 03/05/2023, 03/04/2022, 02/28/2021, Additional history exists Medicare Wellness for age 65+ 03/05/2024 03/05/2023, 03/04/2022, 02/26/2021, Additional history exists Influenza for age 65+ 04/10/2024 05/22/2023 , 06/12/2022, 05/29/2021, Additional history exists COVID-19 vaccine series (2022- season) 2024 05/14/2023, 05/14/2023, 05/14/2023, Additional history exists Postponed from 07/09/2023 (Other) Tetanus booster 04/23/2029 04/23/2019, 03/11, 02/13/2006 Pneumococcal series for age 65+ Completed 12/18/2015, 05/02/2010 DEXA/DXA scan for age 65+ Completed 2018, 03/18/2016, 04/19/2013 Tdap Completed 04/23/2019, 02/13/2006 Zoster (shingles) series for age 50+ Completed 06/13/2019, 03/09/2019, 05/10/2013 Procedures Procedure Name Priority Date/Time Associated Diagnosis Comments AMB EPIDURAL STEROID INJECTION Routine 10/20/2023 7:56 AM CDT 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 Lumbar radiculopathy [place] NJX AA&/STRD TFRML EPI LUMBAR/SACRAL 1 LEVEL Routine 10/20/2023 12:00 AM CDT 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 Lumbar radiculopathy AMB EPIDURAL STEROID INJECTION Routine 09/08/2023 8:06 AM LEAD TANK MECHANIC 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 DDD (degenerative disc disease), lumbar XR DXA BONE DENSITY 2 SITES AXIAL Routine 04/05/2019 11:28 AM CDT Menopause from Last 3 Months or Most Recently Relevant to Health Maintenance Results * [place] NJX AA&/STRD TFRML EPI LUMBAR/SACRAL 1 LEVEL (10/20/2023 12:00 AM CDT) Waldo Bethea MD PB - NERVOUS SYSTE M SERVICES * (ABNORMAL) XR DXA BONE DENSITY 2 SITES AXIAL (04/05/2019 11:28 AM CDT) Anatomical Region Laterality Modality Spine, HIPS, HIPL, HIPR Other Narrative 04/11/2019 10:38 AM CDT Please see scanned document for results of this study. Vaishali Baeza MD DEXA from Last 3 Months or Most Recently Relevant to Health Maintenance Advance Directives Documents on File Type Date Recorded Patient Maintenance Welder Expl anation Healthcare Directive 11/14/2014 2:43 PM UPD ATED LIVING WILL/POWER OF GAS ENGINE OPERATOR FOR HEALTH CARE 03/20/00, [facility], 11/14/14 Care Teams Oil Well Engineer Relationship Specialty Start Date End Date Vaishali Baeza MD [address] [place] [address] PCP - General 01/09/10 Lukas Feliz MD [address] [place] [address] Surgery - Otolaryngology 06/25/12 Waldo Bethea MD [address] [place] [address] Sports Medicine 06/25/12 Isha Gamble [address] [place] [address] [address] Consulting Physician Allergy and Immunology 05/05/14 Isiah Price MD [address] [facility] [place] [address] Ophthalmology Surgery 06/19/15
--- OUTSIDE RECORDS SUMMARY | 2023-11-21 19:25 | XMS_ITS ---
Author Name Unknown Organization [facility] Address [address] [place] [address] Care Team Providers Care Home Designer Name Role Phone Unavailable Unavailable Unavailable Surgery Details Not on file Complications Check Surgery Details section. Procedure Estimated Blood Loss Check Surgery Details section. Procedure Findings Check Surgery Details section. Procedure Specimens Taken Check Surgery Details section.
--- OUTSIDE RECORDS SUMMARY | 2023-11-21 19:25 | XMS_ITS | Clinical Summary ---
Author Name Unknown Organization [facility] Address [address] [place] [address] Care Team Providers Care Plane Runner Name Role Phone Elsewhere, Pcp Primary Care Provider Unavailabl e Source Comments Patient records contain information from all sites at [facility]. For routine questions regarding patient records, call [phone] during business hours, M-F 8:00 AM - 5:00 PM Central Time. Record requests for emergency care only can be directed to [phone] at any time.[facility] Allergies Active Allergy Reactions Criticality Noted Date [...] Overview: Added automatically from request for surgery [id number] Fibromyalgia 05/17/2021 Primary Generalized Osteoarthritis 05/17/2021 Arthroplasty [...] Multifocal lenses both eyes, centered and stable Encounters Date Type Department Care Team Description 08/25/2023 10:40 AM FERMENTER OPERATOR Comprehensive Visit Department of Dermatology in [place], [place] [address] [place] [address] Darlene Orlando M.D. Handfield, Chelsea N, M.D. Personal History Of Malignant Melanoma Of Skin (Primary Dx); Keratosis Seborrheic; Photodamage; Keratosis Seborrheic Inflamed from Last 3 Months Immunizations Name Administration Dates Next Due HZV [...] quad (FLUZONE/FLUARIX) (6 months and older)(PF) 05/29/2021,06/04/2020,06/13/2019,2014,06/06/2014 Family History Medical History Relation Name Comments Coronary artery disease Father shayla goldman Skin cancer Mother Transient ischemic attack Mother Amblyopia Neg Hx Blindness Neg Hx Glaucoma Neg Hx Macular degeneration Neg Hx Strabismus Neg Hx Relation Name Status Comments Father shayla goldman Mother Social History Tobacco Use Types Packs/Day Years [...] often do you attend chur ch or gnosticist services? More than 4 times per year 09/27/2022 Do you belong to any clubs o r organizations such as sikh groups, unions, fraternal or athletic groups, or [...] and heating? Not hard at all 09/27/2022 [facility] [place] of Occupat ional Health - Occupational Stress [...] place to sleep or slept in a retirement (including now)? No 09/27/2022 Nutrition Answer Date [...] Sex Assigned at Female 06/28/2018 10:53 AM FERMENTER OPERATOR Gender Identity Female 06/28/2018 10:53 AM FERMENTER OPERATOR Sexual Orientation Straight 06/28/2018 10 :53 AM FERMENTER OPERATOR Last Filed Vital Signs Vital Sign Reading [...] 01/02/2022 10:35 AM CDT Plan of Treatment Health Maintenance Due Date Last Done Comments Office Visit for Blood Press ure Check / Re-check 1941 Depression Screening (Annual PHQ-2) 08/10/2023 Fall Risk Screen (Annual) 08/10/2023 Creatinine Level (Kidney Fun ction Test) 03/05/2024 03/05/2023, 05/02/2022, 03/04/2022, Additional history exists Potassium Level 03/05/2024 03/05/2023, 04/11, 03/04/2022, Additional history exists Sodium Level 03/05/2024 03/05/2023, 04/11, 03/04/2022, Additional history exists DTaP,Tdap,and Td Vaccines (4 - Td or Tdap) 04/23/2029 04/23/2019, 03/31/2007, 02/13/2006 Pneumococcal vaccine (65+ years) Completed 12/18/19 16, 05/02/2010 Zoster Vaccines Completed 06/13/2019, 02/09, 05/10/2013 COVID-19 Vaccine Completed 05/14/2023, 12/2022, 05/30/2022, Additional history exists Influenza Vaccine Completed 05/22/2023, , 05/29/2021, Additional history exists Medical Devices Implanted Type Area Instrument Designer Device Identifier Shelf Expiration Date Model / Serial / Lot Vinnie Bilayer Matrix 5x5 - [id number] Implanted:Qty: 1 on 12/17/2021 by Brenda Mansfield D.O. at [facility] Bone or Tissue Left: Leg Integra 05/09/2023 [id number] / / [id number] Conversions - Default Historical Implant Device Implanted:05/05 (Quantity not on file) Hardware e.g. pins/screws /rods Right: Foot Description:Body Location - Foot R. Device Status Text - Hardware. screws. Clp Hrzn Ti 6 Clp Md Ruel - [id number] Implanted:Qty: 1 on 12/17/2021 by Brenda Mansfield D.O. at [facility] Hardware e.g. pins/screws /rods [employer] [id number] / / Clp Hrzn Ti 6 Clp Sm Red - [id number] Implanted:Qty: 1 on 12/17/2021 by Brenda Mansfield D.O. at [facility] Hardware e.g. pins/screws /rods [employer] [id number] / / Clp Hrzn Ti 6 Clp Sm Red - [id number] Implanted:Qty: 1 on 12/17/2021 by Brenda Mansfield D.O. at [facility] Hardware e.g. pins/screws /rods [employer] [id number] 07/21/2026 [id number] / / [id number] Clp Hrzn Ti 6 Clp Sm Red - [id number] Implanted:Qty: 1 on 12/17/2021 by Brenda Mansfield D.O. at [facility] Hardware e.g. pins/screws /rods [employer] [id number] 06/16/2026 [id number] / / [id number] Hip Implant- 0 Implanted:04/11 (Quantity not on file) Hip Implant Right: Hip Description:Implanted at [facility] Ocular Lens Ocular Lens Bilater al: Eye Procedures Procedure Name Priority Date/Time Associated Diagnosis Comments EXTI BASIC METABOLIC PANEL, S/P Routine 03/05/2023 11:49 AM CDT from Last 3 Months or Most Recently Relevant to Health Maintenance Advance Directives For more information, please contact: [phone] * Full Code (Latest Code Status on File) Date Activated Date Inactivated Comments 12/17/2021 2:23 PM 12/18/2021 4:24 PM Question Answer Comments Full Code: Discussed * Full Code Date Activated Date Inactivated Comments 12/17/2021 5:44 AM 12/17/2021 2:23 PM Question Answer Comments Full Code: Not Discussed Due to: Not medically appropriate Care Teams Plane Runner Relationship Specialty Start Date End Date Elsewhere, Pcp PCP - General Family Medicine 06/04/21
--- OUTSIDE RECORDS SUMMARY | 2023-11-21 19:25 | XMS_ITS | Encounter Summary ---
Author Name Unknown Organization [facility] Address [address] [place] [address] Care Team Providers Care Weight Inspector Name Role Phone Elsewhere, Pcp Primary Care Provider Unavailabl e Reason for Visit * Appointment Request (Routine) - Closed Specialty Diagnoses / Procedures Referred By Conttete t Referred To Contact Dermatology Diagnoses Lesion Skin Referral ID Status Reason Start Date Expiration Date Visits Re quested Visits Authorized [id number] Closed 08/24/2023 08/23/2024 1 1 Encounter Details Date Type Department Care Team (Latest Contact Info) Description 08/25/2023 10:40 AM NATURAL GAS SHOTHOLE DRILLER Comprehensive Visit Department of Dermatology in [place], [place] [address] [place] [phone] Darlene Orlando M.D. [address] [place] [phone] Amara Mathias M.D. [address] [place] [phone] Personal History Of Malignant Melanoma Of Skin (Primary Dx); Keratosis Seborrheic; Photodamage; Keratosis Seborrheic Inflamed Social History Tobacco Use Types Packs/Day Years [...] 09/27/2022 How often do you attend chur or mu-ism services? More than 4 times per year 09/27/2022 Do you belong to any clubs o r organizations such as confucianism groups, unions, fraternal or athletic groups, or [...] and heating? Not hard at all 09/27/2022 [facility] [place] - Occupational Stress [...] place to sleep or slept in a intermediate (including now)? No 09/27/2022 Nutrition Answer Date [...] Sex Assigned at Female 06/28/2018 10:53 AM NATURAL GAS SHOTHOLE DRILLER Gender Identity Female 06/28/2018 10:53 AM NATURAL GAS SHOTHOLE DRILLER Sexual Orientation Straight 06/28/2018 10 :53 AM NATURAL GAS SHOTHOLE DRILLER documented as of this encounter Progress Notes * Amara Mathias M.D. - 08/25/2023 10:40 AM CST CORRESPONDENCE TO: Amara Mathias M.D. Supervised by: Dr. Beau Arango Patient seen and discussed with supervising sap portal consultant,who evaluated the patient and concurs with the assessment and plan. REFERRED BY: No referring provider defined for this encounter. CHIEF COMPLAINT Skin cancer screening exam HISTORY OF PRESENT ILLNESS Ms. Latonya Gordon is a 83 y.o. female who presents for full body skin exam. She has history of malignant melanoma on the left calf Breslow thickness 1.1 mm status post wide local excision with negative sentinel lymph node biopsy 12/2021. She also has history of malignant melanoma involving the left east of unknown Breslow depth diagnosed and managed outside more than 15 years ago. She also has history of basal cell carcinoma. She was last seen in our department 05/2023 for full body skin exam without significant findings. At that time, she was noted to have hair loss consistent with androgenetic alopecia for which we recommended topical treatment with [id number]-[id number] minoxidil 5% foam to the scalp once daily. Today, the patient states that she was raised brown lesions on the back that she would like to be evaluated. She denies any new fever/chills, unintentional change in weight, headache, cough, sore throat, shortness of breath, chest pain, nausea/vomiting, GI upset, diarrhea/constipation, and blood in the stool/urine. PHYSICAL EXAM General: Awake, alert, in no acute distress, and with appropriate affect. Eyes: No eyelid abnormalities. No scleral injection. Skin: Full skin examination of the scalp, face, neck, chest, abdomen, back, upper extremities, lower extremities, the digits and nails, suprapubic area, and buttocks was performed per patient request. Bonilla type 2 skin with minimal dermatoheliosis on sun-exposed areas. Scattered light brown to dark brown, symmetric, uniform macules and thin papules on the trunk, and extremities with reassuring features under dermoscopy. Multiple pink to brown waxy, stuck- on appearing papules and plaques on the chest, abdomen, and back consistent with seborrheic keratoses, including lesions of concern. Various 1-2 mm red to purple dome shaped papules noted on the trunk, upper extremities, and lower extr emities consistent with sarmiento angiomas. No palpable cervical, axillary, inguinal, or popliteal lymphadenopathy. ASSESSMENT AND PLAN #1 Inflamed seborrheic keratosis The benign nature of this lesion(s) was discussed with the patient. Given the inflamed nature of this lesion(s), its treatment is medically indicated. We recommended treatment with electrodesiccationand curettage. Aftercare instructions were provided in written and verbal form to the patient. Should any of these lesions recur, the patient should return for further evaluation. ELECTRODESICCATION AND CURETTAGE Given the location, size and histologic features, it was determined that electrodesiccation and curettage would be an appropriate treatment for this condition. Benefits and risks including but not limited to infection, bleeding, recurrence and scar formation were reviewed and questions answered. Patient elected to proceed. The lesion(s) was(were) destroyed with electrodesiccation and curettage. Prior to proceeding, we discussed risks and benefits, including bleeding, scarring, infection and possible recurrence. The patient was given the opportunity to ask questions. Lidocaine 1% with epinephrine 1:100,000 was used for local analgesia. Written and verbal wound care instructions were given to the patient. Site: Left lateral back Postoperative size: 1.5 x 1.3 cm FIRE RISK ASSESSMENT Procedure site at the xiphoid or above? 0 - No Open Oxygen Source (SupplementalO2, via face mask/nasal cannula, nitrous oxide)? 0 - No Ignition Source (eg. cautery/cautery pen, laser, fiber optic light)? 1 - Yes Fire Risk Score 1 #1 History of malignant melanoma #2 History of basal cell carcinoma #3 Dermatoheliosis Sun protection and sun avoidance were reviewed with the patient. Educational materials were provided regarding skin self-examination, the warning signs and symptoms of skin cancer, and the proper useof sunscreens with SPF 30 or higher. I would recommend a full skin cancer screening examination with an appropriately trained clinician every 6 months. #4 Multiple nevi The ABCDE criteria for melanoma was reviewed with the patient. None of the patient's nevi reach theclinical threshold for biopsy. I recommend continued sun protection, self-skin examinations, and observation. Should any of the patient's nevi change in size, color, texture, or shape or develop symptoms such as itching or bleeding, I recommend an immediate return visit for reassessment. #5 Seborrheic keratoses #6 Sarmiento angiomas #7 Solar lentigines The benign nature of these skin lesions was discussed with the patient. No treatment is required. Irecommend continued observation. Should symptoms or changes develop related to these conditions, I would recommend a return visit for reassessment. PATIENT EDUCATION Ready to learn. No apparent learning barriers were identified. Learning preferences include listening. Explained diagnosis and treatment plan; patient/guardian of patient expressed understanding of the content. RAL GAS SHOTHOLE DRILLER Associated attestation - Beau Dill M.D. - 08/25/2023 2:00 PM NATURAL GAS SHOTHOLE DRILLER I saw and evaluated the patient, participating in the espinoza portions of the service. I reviewed the resident???s note. I agree with the resident???s findings and plan. I was present for the critical portion and immediately available for the entire procedure. documented in this encounter Plan of Treatment Not on file documented as of this encounter Visit Diagnoses Diagnosis Personal History Of Malignant Melanoma Of Skin- Primary Keratosis Seborrheic Photodamage Keratosis Seborrheic Inflamed documented in this encounter Care Teams Weight Inspector Relationship Specialty Start Date End Date Elsewhere, Pcp PCP - General Family Medicine 06/04/21 documented as of this encounter
--- OUTSIDE RECORDS SUMMARY | 2023-11-21 19:26 | XMS_ITS | Continuity of Care Document ---
Author Name Unknown Organization [facility] Address [address] [place] [address] Phone Care Team Providers Care Associate Application Developer Name Role Phone Sarah Grant MD Unavailable [...] [facility], [address], [place], [address], [place] tel:[phone] [facility] , No Information 3 Rudy Smith. [facility] [address], [place], [address], [place]. tel:[phone] Office/Outpa tient Visit, New [facility], [address], [place], [address], [place] tel:[phone] [facility] , Pain All Over (chief complaint) Hallux rigidusPain in joint involving multiple sitesFatigue / MalaiseMyalg ia and myositis, unspecified 3 Rudy Smith. [facility] [address], [place], [address], [place]. tel:[phone] Referring Provider: Sarah Haider, [facility] [address], [place], [address]. tel:[phone] [facility], [address], [place], [address], [place] tel:[phone] [facility] , No Information 3 Rudy Smith. [facility] [address], [place], [address], [place]. tel:[phone] Family History Family Member Type Diagnosis Age At Onset mother Problem (finding) osteoarthritis Payers Payer name Insurance type Covered democrat ID Authoriza tion(s) [employer] Medicare Advantage/Plat inum Blue BL [id number] Social History Type Description Quantity Date Captured [...]
--- OUTSIDE RECORDS SUMMARY | 2023-11-21 19:26 | XMS_ITS | Continuity of Care Document ---
Author Name Unknown Organization [facility] Address [address] [place] [address] Phone Care Team Providers Care Chemical Maker Name Role Phone Dinesh Sears Unavailable Unavailable [...] Available - Active Procedures Procedure Date Office/Outpatient Visit,[facility] 2017 Advance Directives Directive Yes / No Effective Date File Name No Information Encounters Encounter Description Practice Location Reason(s) For Visit Diagnoses Date Provider Providers Copied on Encounter [facility], [address], [place], [place], [id number], [place] tel:[phone] [facility] No Information Demetrio Montiel. [facility], [address], [place], [place], [id number], [place]. tel:[phone] Office/Outpat ient Visit,[facility], [facility], [address], [place], [place], [id number], [place] tel:[phone] [facility] Spondylolisth esis, cervical region Demetrio Montiel. [facility], [address], [place], [place], [id number], [place]. tel:[phone] Referring Provider: Vaishali Baeza , [place] [address], [place], [address]. tel:[phone] Family History Family Member Type Diagnosis Age At Onset No Information Payers Payer name Insurance type Covered democrat ID Jonas robertson(s) [facility] [id number] Medicare Dominguez [id number] 1 Social History Type Description Quantity Date [...]
--- NOTE | 2023-11-21 20:35 | ED.GENADULT ---
HPI - General Adult General Chief complaint: Weakness Stated complaint: Possible stroke Time Seen by Provider: 11/21/23 18:14 Source: patient Mode of arrival: ambulatory Limitations: no limitations History of Present Illness HPI narrative: 83-year-old female coming in today complaining of left arm weakness and heaviness. She states that she woke up from her nap today approximately 2 hours prior to presenting to the ER and she felt that her left arm was heavy. She was still able to do all her daily activities she just felt unwell. She states that yesterday she had an ocular migraine like she normally has not had a numbness and tingling of the left side of her face. This is not new sensation for her. She denies weakness of the left leg. She denies confusion, headache blurry vision or double vision today. She denies any ringing in her ears. She denies difficulty with speech. She is not having any chest pain, she is not short of breath. She is not dizzy or diaphoretic. She denies vertiginous symptoms. She denies any fevers or chills. She states that she felt nauseated when she had her headache yesterday but this has resolved she has not felt nauseated today. She denies any vomiting. Her appetite has been normal. She denies any urinary symptoms such as increased frequency, urgency or dysuria. She is not having any diarrhea. Her past medical history is significant for carotid artery stenosis that is being followed, cervicalgia, ocular migraines, GERD, hypertension, obstructive sleep apnea, hyperlipidemia, insomnia, fibromyalgia, overactive bladder, daytime somnolence, retinal detachment, malignant melanoma of the lower extremity. Patient denies tobacco use. Related Data Home Medications Medication Instructions Recorded Confirmed albuterol sulfate 90 mcg/actuation 1 - 2 puff inhalation Q4H PRN 01/03/23 01/03/23 aerosol inhaler dyspnea estradiol 10 mcg vaginal tablet 10 mcg vaginal 3XW 01/03/23 01/03/23 (Yuvafem) losartan 50 mg tablet 50 mg PO DAILY 01/03/23 11/21/23 pregabalin 50 mg capsule 50 mg PO QPM 01/03/23 01/03/23 rosuvastatin 10 mg tablet 10 mg PO QPM 01/03/23 11/21/23 albuterol 90 mcg/actuation aerosol mcg inhalation 11/21/23 inhaler aspirin 81 mg capsule 81 mg PO DAILY 11/21/23 11/21/23 cetirizine 10 mg tablet (24Hour 10 mg PO DAILY PRN 11/21/23 11/21/23 Allergy) coQ10 (ubiquinol) 100 mg capsule 100 mg PO BID 11/21/23 11/21/23 (Qunol Eduardo CoQ10) diclofenac sodium 75 mg 75 mg PO DAILY 11/21/23 11/21/23 tablet,delayed release oxycodone 5 mg tablet 5 mg PO Q6H PRN pain 11/21/23 11/21/23 rosuvastatin 20 mg tablet 20 mg PO QPM 11/21/23 11/21/23 Allergies Allergy/AdvReac Type Severity Reaction Status Date / Time aluminum Allergy Verified 11/21/23 18:15 cefuroxime [From Ceftin] Allergy Verified 11/21/23 18:15 diphtheria toxoid,fluid Allergy Verified 11/21/23 18:15 doxycycline Allergy Verified 11/21/23 18:15 gabapentin Allergy Verified 11/21/23 18:15 grass pollen Allergy Verified 11/21/23 18:15 lisinopril Allergy Verified 11/21/23 18:15 mold Allergy Verified 11/21/23 18:15 Penicillins Allergy Verified 11/21/23 18:15 pneumococcal 7-valent Allergy Verified 11/21/23 18:15 conjugate to [From Prevnar] pneumococcal vaccine Allergy Verified 11/21/23 18:15 Sulfa (Sulfonamide Allergy Verified 11/21/23 18:15 Antibiotics) Review of Systems Status of ROS: Reports: 10 or more systems reviewed and unremarkable except as noted in History and below [facility] Social History Smoking Status: Never smoker Do you use any of these nicotine containing products: None Second hand tobacco smoke exposure: No How often do you have a drink containing alcohol: never AUDIT-C Alcohol total score: 0 Non-prescribed substance use: denies use service: No Exam Narrative: Exam Narrative: Well-nourished well-developed patient in no acute distress. Alert and oriented. Answers questions appropriately. Mood and affect are appropriate. Thoughts are goal oriented and rational. No tangential or magical thinking noted. Patient speaks in full sentences without needing to catch her breath. Speech is not slurred or pressured. HEENT: Normocephalic atraumatic. Pupils are equally round reactive to light. Extraocular muscles are intact. Conjunctivae are moist without any icterus noted. Moist mucous membranes. Neck is soft. Face is symmetric. Cardiovascular: Heart is regular rate and rhythm S1 and S2 are present without any murmurs. Lungs: Clear to auscultation bilaterally no wheezes rhonchi or rales are appreciated. Patient takes deep breaths without any discomfort. Abdomen: Soft and nontender nondistended with normal bowel sounds. No guarding. Extremities: Bilateral lower extremities are without edema. Normal DP and PT pulses. Skin: Well perfused without any obvious rashes. Strength is 5/5 of the upper and lower extremities. Reflexes are 2+ and symmetric at the knees. Delete Cranial nerves 3-12 are normal. Sfleor-tx-toes is normal. Delete There is no nystagmus either horizontally or vertically. Gait is normal. There is no pronator drift. NIH stroke scale is 0. Const: Vital Signs, click to edit/add: Vital Signs - 24 hr 11/21/23 18:01 11/21/23 18:22 Temperature 98.9 F Pulse Rate [Right Pulse Oximeter] 75 Respiratory Rate 18 Blood Pressure [Ri ght Upper Arm] 132/79 Pulse Oximetry 96 Oxygen Delivery Me thod Room Air Course Course ED Course: Given the patient's subjective concerns of left arm heaviness and weakness, we did proceed with head CT, head CTA neck CTA. These were unremarkable for any acute findings. CBC is entirely normal. Chemistries are unremarkable. Glucose is 118. LFTs are normal. Troponin is 0. EKG, read by me, shows normal sinus rhythm with a pulse of 70. Repeat troponin unchanged, repeat EKG unchanged. Repeat neurological exam is unchanged. No weakness noted of the upper or lower extremities. Vital Signs Vital signs: Initial Vital Signs Temperature 98.9 F 11/21/23 18:01 Temperature Source Temporal Artery Scan 11/21/23 18:01 Pulse Rate 75 11/21/23 18:01 Pulse Rhythm Regular 11/21/23 18:01 Respiratory Rate 18 11/21/23 18:01 Blood Pressure 132/79 11/21/23 18:01 Blood Pressure Mean 96 11/21/23 18:01 Blood Pressure Position Sitting 11/21/23 18:01 Oxygen Delivery Method Room Air 11/21/23 18:01 Vital Signs Temperature 98.9 F 11/21/23 18:01 Pulse Rate 75 11/21/23 18:01 Respiratory Rate 18 11/21/23 18:01 Blood Pressure 132/79 11/21/23 18:01 Oxygen Delivery Method Room Air 11/21/23 18:01 Temperature 98.9 F 11/21/23 18:01 Pulse Rate 75 11/21/23 18:01 Respiratory Rate 18 11/21/23 18:01 Blood Pressure 132/79 11/21/23 18:01 Pulse Oximetry 96 11/21/23 18:22 Oxygen Delivery Method Room Air 11/21/23 18:01 Medical Decision Making MDM Narrative Medical decision making narrative: 83-year-old female with subjective feelings of heaviness and weakness of the left upper extremity. Her workup today was unremarkable. Her examination did not reveal any objective weakness. I did speak to Dr. Tong Victoria, neurologist at [facility] who recommended continuing her daily baby aspirin and following up with her primary care provider at this time. Patient feels reassured and feels comfortable going home at this time. Lab Data Lab results reviewed: Yes I reviewed the patient's lab results Labs: Lab Results 11/21/23 11/21/23 11/21/23 Range/Units 18:23 18:25 20:08 WBC 6.10 (4.50-11.00) K/uL RBC 4.18 (4.00-5.20) m/uL Hgb 12.9 (12.0-16.0) gm/dL Hct 40.8 (33.0-51.0) % MCV 98 (80-100) fL MCH 31 (26-34) pg MCHC 32 (32-36) gm/dL RDW Coeff of Edis 13.2 (11.5-15.5) % Plt Count 275 (140-440) K/uL Neut % (Auto) 60.8 (42.0-72.0) % Lymph % (Auto) 28.0 (20-44) % [place] % (Auto) 7.7 (0.0-11.0) % Eos % (Auto) 2.6 (0.0-7.0) % Baso % (Auto) 0.7 (0.0-3.0) % Neut # (Auto) 3.71 (1.7-7.0) K/uL Lymph # (Auto) 1.71 (0.90-2.90) K/uL [place] # (Auto) 0.50 (0.00-0.90) K/UL Eos # (Auto) 0.16 (0.00-0.50) K/uL Baso # (Auto) 0.04 (0.00-0.30) K/uL Abs Immat Gran (auto) 0.01 (0.00-0.30) K/uL Imm/Tot Granulo (auto) 0.2 % Sodium 138 (135-149) mmol/L Potassium 4.2 (3.6-5.1) mmol/L Chloride 111 (96-114) mmol/L Carbon Dioxide 21 (20-32) mmol/L Anion Gap 6 L (7-15) mEq/L BUN 20 (7-30) mg/dL Creatinine 0.7 (0.5-1.5) mg/dL Estimated Creat Clear 34.30 Estimated GFR 86 ml/min Glucose 118 H (60-115) mg/dL Lactate 1.0 (0.5-1.9) mmol/L Calcium 9.2 (8.4-10.6) mg/dL Total Bilirubin 0.2 (0.1-1.5) mg/dL Direct Bilirubin 0.1 (0.0-0.5) mg/dL AST 20 (12-35) U/L ALT 17 (4-35) U/L Alkaline Phosphatase 63 (40-150) U/L Troponin I < 0.01 L (0.01-0.04) ng/mL Total Protein 7.0 (6.0-8.3) g/dL Albumin 4.6 (3.3-5.0) g/dL POC Troponin I 0.00 L 0.00 L (0.01-0.04) ng/ml Imaging Data CT scan - head: Attestation: I have reviewed the pertinent imaging results. Radiologist's impression: Study:?CT Head W/O STROKE PROTOCOL-11/21/2023 6:42:21 PM Ordering Physician:ASHLEE Final Report: INDICATION: Left arm weakness. TECHNIQUE: CT of the head without contrast. Coronal and sagittal reformats. Bone and soft tissue algorithms. COMPARISON: No prior studies available for comparison at this institution. FINDINGS: No acute intracranial hemorrhage or extra-axial collection. No evidence of acute cortical infarction. 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 No mass effect or midline shift. Moderate parenchymal volume loss. Mild regions of decreased attenuation within the periventricular and subcortical white matter of both cerebral hemispheres most likely reflects chronic microvascular ischemic disease and age related change in this patient. Vascular calcifications within the carotid siphons. Orbital contents are normal. No calvarial fractures. No lytic or sclerotic osseous lesions within the calvarium or skull base. Scalp and other imaged soft tissue structures are normal. Mastoid air cells are clear. IMPRESSION: 1. No acute intracranial abnormality. 2. 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 CTA head: Attestation: I have reviewed the pertinent imaging results. Radiologist's impression: Study:?CT Head Angio W/ STROKE PROTOCOL-11/21/2023 6:56:30 PM Ordering Physician:ASHLEE Preliminary Report: 1. No evidence of proximal artery occlusion, high grade stenosis, aneurysm, dissection, or vascular malformation. 2. Mild-moderate right P1 COMMUNITY OUTREACH MANAGER narrowing. Final report per neurointerventional radiology service. CTA neck: Attestation: I have reviewed the pertinent imaging results. Radiologist's impression: Study:?CT Neck Angio W/ STROKE PROTOCOL-11/21/2023 6:56:45 PM Ordering Physician:ASHLEE Preliminary Report: 1. No evidence of proximal artery occlusion, high grade stenosis, aneurysm, dissection, or vascular malformation. 2. Final report per neurointerventional radiology service. ECG Data Attestation: I personally reviewed and interpreted this ECG as follows: Discharge Plan Discharge Clinical Impression: Left arm weakness Patient Disposition: Home, Self-Care Condition: Stable Additional Instructions: Your workup today did not reveal any evidence of stroke or heart attack. If you feel like you are getting worse instead of better, I do recommend you return to the ER. Otherwise I recommend that you follow-up with your primary care provider this coming week. Prescriptions: No Action losartan 50 mg tablet 50 mg PO DAILY albuterol sulfate 90 mcg/actuation HFA aerosol inhaler 1 - 2 puff INHALATION Q4H PRN (Reason: dyspnea) rosuvastatin 10 mg tablet 10 mg PO QPM pregabalin 50 mg capsule 50 mg PO QPM estradiol [Yuvafem] 10 mcg tablet 10 mcg vaginal 3XW diclofenac sodium 75 mg tablet,delayed release (DR/EC) 75 mg PO DAILY oxycodone 5 mg tablet 5 mg PO Q6H PRN (Reason: pain) rosuvastatin 20 mg tablet 20 mg PO QPM cetirizine [24Hour Allergy] 10 mg tablet 10 mg PO DAILY PRN aspirin 81 mg capsule 81 mg PO DAILY albuterol 90 mcg/actuation aerosol inhalation coQ10 (ubiquinol) [Qunol Eduardo CoQ10] 100 mg capsule 100 mg PO BID Follow Up/Referrals: Vaishali Baeza MD [Primary Care Provider] - Stand Alone Forms: [facility] Info Instructions
[2023-11-21 21:01] VITALS: BP 171/78; PULSE 72; RESP 20; O2SAT 94
== END 2023-11-21 21:09 | disposition home or self-care (01) ==
PROVIDERS: Emergency Provider Family Medicine; PCP Family Medicine
DX: R53.1 Weakness (principal)
CPT/HCPCS: 36415; 70450; 70496; 70498; 80048; 80076; 81001; 83605; 84484; 85025; 87086; 93005; 94761; 99284; 99285; Q9967

== ENCOUNTER 2023-11-24 14:19 | Outpatient (CLI) | payer MEDICARE, SELFPAY ==
--- OUTSIDE RECORDS SUMMARY | 2023-11-27 03:14 | XMS_ITS | Continuity of Care Document ---
Author Name Unknown Organization [facility] Address [address] [address] [place] [address] Phone Care Team Providers Care Simulation Educator Name Role Phone Jaydon Fuentes MD Unavailable [...] Procedures Procedure Date Offic/outpt E&m [facility] Advance Directives Directive Yes / No Effective Date File Name No Information Encounters Encounter Description Practice Location Reason(s) For Visit Diagnoses Date Provider Providers Copied on Encounter Offic/outpt E&m [facility], [address] [address], [place], [place], [id number], [place] tel:[phone] [facility] GI Symptoms or Concerns (chief complaint) CoughHeartburnNausea [address]. [address], [place], [place], [id number] , [place]. tel:[phone] Referring Provider: Ofelia Vázquez PAC, [address] [facility], [place], [address] . tel:[phone] Family History Family Member Type Diagnosis Age At Onset Son Problem (finding) GERD Son Problem (finding) cancer of colon Payers Payer name Insurance type Covered constitution party ID Jonas robertson(s) [employer] [place] [employer] BL [id number] Social History Type Description Quantity Date Captured [...] in about [address] Simpson in [place] for heartburn symptoms. She thinks that there [...] GI disorders or malignancies in her family.SOCIAL HISTORYAlissa is currently . She has never used [...] had th e pleasure of seeing Latonya Buggy Runner today in clinic along with her for [...] in about [address] Simpson in [place] for heartburn symptoms. She thinks that there [...] that time.She is planning a trip to [place] for 2 weeks starting in about 2 [...]
--- OUTSIDE RECORDS SUMMARY | 2023-11-27 03:14 | XMS_ITS | Referral Summary ---
Author Name Unknown Organization [facility] Address [address] [place] [address] Care Team Providers Care Docket Clerk Name Role Phone Elsewhere, Pcp Primary Care Provider Unavailabl e Source Comments Patient records contain information from all sites at [facility]. For routine questions regarding patient records, call [phone] during business hours, M-F 8:00 AM - 5:00 PM Central Time. 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 More than 4 times per year 09/27/2022 Do you belong to any clubs o r organizations such as adventism groups, unions, fraternal or athletic groups, or [...] and heating? 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 at [facility] Bone or Tissue Left: Leg Integra 05/09/2023 [id number] / / [id number] Conversions - Default Historical Implant Device Implanted:05/05 (Quantity not on file) Hardware e.g. pins/screws /rods Right: Foot Description:Body Location - Foot R. Device Status Text - Hardware. screws. Clp Hrzn Ti 6 Clp Md Ruel - [id number] Implanted:Qty: 1 on 12/17/2021 by Brenda Mansfield D.O. at [facility] Hardware e.g. pins/screws /rods [employer] [id number] / / Clp Hrzn Ti 6 Clp Sm Red - [id number] Implanted:Qty: 1 on 12/17/2021 by Brenda Mansfield D.O. at [facility] Hardware e.g. pins/screws /rods [employer] [id number] / / Clp Hrzn Ti 6 Clp Sm Red - [id number] Implanted:Qty: 1 on 12/17/2021 by Brenda Mansfield D.O. at [facility] Hardware e.g. pins/screws /rods [employer] [id number] 07/21/2026 [id number] / / [id number] Clp Hrzn Ti 6 Clp Sm Red - [id number] Implanted:Qty: 1 on 12/17/2021 by Brenda Mansfield D.O. at [facility] Hardware e.g. pins/screws /rods [employer] [id number] 06/16/2026 [id number] / / [id number] Hip Implant-9/2/202 0 Implanted:04/11 (Quantity not on file) Hip Implant Right: Hip Description:Implanted at [facility] Ocular Lens Ocular Lens Bilater al: Eye Procedures Procedure Name Priority Date/Time Associated Diagnosis Comments EXTI BASIC METABOLIC PANEL, S/P Routine 03/05/2023 11:49 AM CDT from Last 3 Months or Most Recently Relevant to Health Maintenance Advance Directives For more information, please contact: [phone] * Full Code (Latest Code Status on File) Date Activated Date Inactivated Comments 12/17/2021 2:23 PM 12/18/2021 4:24 PM Question Answer Comments Full Code: Discussed * Full Code Date Activated Date Inactivated Comments 12/17/2021 5:44 AM 12/17/2021 2:23 PM Question Answer Comments Full Code: Not Discussed Due to: Not medically appropriate Care Teams Docket Clerk Relationship Specialty Start Date End Date Elsewhere, Pcp PCP - General Family Medicine 06/04/21
--- OUTSIDE RECORDS SUMMARY | 2023-11-27 03:14 | XMS_ITS | Clinical Summary ---
Author Name Unknown Organization [employer] [facility] Address [place], [place] [address] Care Team Providers Care Operations [place] Name Role Phone Vaishali Baeza MD Primary Care Provide r Lukas Feliz MD Unavailable Waldo Bethea MD Unavailable Isha Gamble Unavailable Isiah Price MD Unavailable [phone] Allergies Active Allergy Reactions Criticality Noted [...] albuterol HFA (PRO-AIR; VENTOLIN; PROVENTIL) 90 mcg/actuation inhalerIndications: Bronchitis Inhale 1-2 Puffs by mouth every 4 hours if needed (cough or shortness of breath). 1 Each 5 07/24/2022 Active losartan (COZAAR) 50 mg tabletIndications:H TN (hypertension) Take 1 Tablet (50 mg) by mouth once daily. 90 Tablet 3 03/05/2023 Active estradioL (Yuvafem) 10 mcg tab vaginal tabletIndications:V aginitis, atrophic,Bladder prolapse, female, acquired Insert 1 Tablet (10 mcg) into the vagina once daily. Three times per week 36 Tablet 3 03/05/2023 Active aspirin (ECOTRIN) 81 mg enteric coated tabletIndications:S tenosis of left carotid artery Take 1 Tablet (81 mg) by mouth once daily with a meal. 0 03/24/2023 Active famotidine (PEPCID) 20 mg tabletIndications:G astroesophageal reflux disease, unspecified whether esophagitis present Take 1 Tablet (20 mg) by mouth 2 times daily if needed for GI Upset. 60 Tablet 3 08/27/2023 Active oxyCODONE (ROXICODONE) 5 mg immediate release tabletIndications:S luis stenosis of lumbar region with neurogenic claudication Take 1 Tablet (5 mg) by mouth every 6 hours if needed for Pain. 12 Tablet 10/16/2023 Active clopidogreL (PLAVIX) 75 mg tablet Take 75 mg by mouth every morning. 11/25/2023 Active oxyCODONE (ROXICODONE) 5 mg immediate release tabletIndications:C ervical radiculopathy Take 1 Tablet (5 mg) by mouth at bedtime. 30 Tablet 11/26/2023 Active rosuvastatin (CRESTOR) 20 mg tabletIndications:C erebrovascular accident (CVA) due to thrombosis of cerebral artery (HC) Take 1 Tablet (20 mg) by mouth at bedtime. 11/26/2023 Active diclofenac (VOLTAREN) 75 mg delayed-release tabletIndications:A rthralgia, unspecified joint,Cervicalgia TAKE 1 TABLET BY MOUTH EVERY DAY 90 Tablet 2 04/09/2023 11/26/19 24 Discontinu ed(*Med complete/R egimen complete/L evel of care change) rosuvastatin (CRESTOR) 10 mg tabletIndications:H yperlipidemia, unspecified hyperlipidemia type Take 1 Tablet (10 mg) by mouth at bedtime. 90 Tablet 3 08/04/2023 11/26/19 24 Discontinu ed(*Med complete/R egimen complete/L evel of care change) Active Problems Problem Noted Date Diagnosed Date Cerebrovascular accident (CV A) due to thrombosis of cerebral artery 11/26/2023 Malignant melanoma of skin of lower extremity Overview: Added automatically from request for surgery [id number] Retinal detachment with retinal defect 1 Overview: [...] Encounters Date Type Department Care Team Description 11/26/2023 1:25 PM CDT Office Visit [facility] [address] [place] [address] Vaishali Baeza MD Hospital F/U (Stroke. Getting feeling in left hand./Has concerns with Plavix and Voltaren/Did not taken any medications today except Tylenol and Plavix /Needs open sided MRI/) 11/26/[address] [facility] [address] [place] [address] Waldo Bethea MD Questions 11/26/[address] [facility] [address] [place] [address] Waldo Bethea MD Results (MRI) 11/26/2023 Telephone [facility] [address] [facility] [address] [place] [address] Brendon Lawrence MD Referral (Neurology) 11/26/2023 Travel 11/25/2023 11:00 AM CDT Ancillary Procedure [facility] [address] [place] [address] Arrived 11/25/[address] [facility] [address] [facility] [place] [address] Vaishali Baeza MD Heart Monitor 11/25/2023 Office Visit [address] [address] Glenda Ledbetter MD 11/24/2023 2:40 PM CDT Office Visit [facility] [address] [place] [address] Vaishali Baeza MD Arm Pain/problem 11/24/2023 Office Visit [address] [address] Glenda Ledbetter MD 11/24/[address] [facility] [address] [place] [address] Waldo Bethea MD 1 scan: (1-Ord) [facility], LUMBAR SPINE, 11/19/2023 11/24/2023 Travel 11/21/2023 Orders Only [facility] Scanner 1 scan: (1-Ord) [facility], CT-NECK ANGIO W/STROKE PROTOCOL, 11/21/2023 11/11/2023 2:00 PM CDT Office Visit [facility] [address] [place] [address] Waldo Bethea MD Musculoskeletal Problem (Follow up back pain) 11/11/2023 Travel 10/20/2023 9:40 AM CDT Office [facility] [address] [facility] [place] [address] Waldo Bethea MD Procedure (Bilateral L5-S1 TFESI) 10/17/2023 Travel 10/12/[address] [facility] [address] [place] [address] Waldo Bethea MD Prior Authorization (PEER TO PEER REQUESTED) 09/24/[address] [facility] [address] [facility] [address] Waldo Bethea MD PT. would like a call from her Provider 09/08/2023 10:20 AM WEB SITE SPECIALIST Office Visit [facility] [address] [place] [phone] Waldo Bethea MD Procedure (L4-5 ILESI) 09/04/[address] [facility] [address] [place] [address] Waldo Bethea MD Prior Authorization (LUMBAR SANJUANITA - PEER to PEER NEEDED) 08/31/[address] [facility] [address] [place] [address] Vaishali Baeza MD Prior Authorization (STEROID INJECTION) from Last 3 Months Immunizations Name Administration [...] COVID-19 vaccine (Pfizer-Bio NTech 30mcg/0.3mL) PF, MDV 05/09/2021,10/13/2020,09/22/2020 Influenza Virus, Unspecified 05/02/2010 Influenza, High-dose Inactivated [...] Sex Assigned at Female 08/03/2020 9:53 AM WEB SITE SPECIALIST Gender Identity Female 08/03/2020 9:53 AM WEB SITE SPECIALIST Sexual Orientation Not on file Obstetrics History [...] Sign Reading Time Taken Comments Blood Pressure 137/73 11/26/2023 1:38 PM CDT Pulse 92 11/26/2023 1:38 PM CDT Temperature 36.1 ??C (97 ??F) 11/11/2023 2:17 PM CDT Respiratory Rate 16 06/11/2023 2:34 PM CDT Oxygen Saturation 96% 11/26/2023 1:38 PM CDT Inhaled Oxygen Concentration - - Weight 71.3 kg (157 lb 3.2 oz) 11/26/2023 1:38 P M CDT Height 156.5 cm (5' 1.61) 03/05/2023 10:40 AM C DT Body Mass Index 29.11 03/05/2023 10:40 AM CDT Plan of Treatment Upcoming Encounters Date Type Department Care Team (Late st Contact Info) Description 12/17/2023 12:10 PM CDT Office Visit [facility] [address] [place] [address] Vaishali Baeza MD [address] [place] [address] 01/15/2024 8:40 AM CDT Office Visit [facility] [address] [place] [address] Waldo Bethea MD [address] [place] [address] Health Maintenance Due Date Last Done Comments BMI (ht and wt on same day) for age 18+ 03/05/2024 03/05/2023, 03/04/2022, 04/30/2021, Additional history exists Depression screening for age 12+ 03/05/2024 03/05/2023, 03/04/2022, 02/28/2021, Additional history exists Medicare Wellness for age 65+ 03/05/2024 03/05/2023, 03/04/2022, 02/26/2021, Additional history exists Influenza for age 65+ 04/10/2024 05/22/2023 , 06/12/2022, 05/29/2021, Additional history exists COVID-19 vaccine series (2022-24 season) 2024 05/14/2023, 05/14/2023, 05/14/2023, Additional history exists Postponed from 07/09/2023 (Other) Tetanus booster 04/23/2029 04/23/2019, 03/11, 02/13/2006 Pneumococcal series for age 65+ Completed 12/18/2015, 05/02/2010 DEXA/DXA scan for age 65+ Completed 2018, 03/18/2016, 04/19/2013 Tdap Completed 04/23/2019, 02/13/2006 Zoster (shingles) series for age 50+ Completed 06/13/2019, 03/09/2019, 05/10/2013 Procedures Procedure Name Priority Date/Time Associated Diagnosis Comments ECHO TTE COMPLETE WO CONTRAST Routine 11/25/2023 11:46 AM CDT Stroke (cerebrum) (HC) Left hand weakness SCAN-CT INTERPRETATION 12:00 AM CDT MR SPINE LUMBAR WO Routine 11/19/2023 12 :00 AM CDT 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 Lumbar radiculopathy DDD (degenerative disc disease), lumbar AMB EPIDURAL STEROID INJECTION Routine 10/20/2023 7:56 AM CDT 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 Lumbar radiculopathy MT NJX AA&/STRD TFRML EPI LUMBAR/SACRAL 1 LEVEL Routine 10/20/2023 12:00 AM CDT 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 Lumbar radiculopathy AMB EPIDURAL STEROID INJECTION Routine 09/08/2023 8:06 AM WEB SITE SPECIALIST 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 Accession#: ?? [id number] : ?1940 83 years Study Date: ?? 11/25/2023 11:12:30 AM Gender: F ?BP: ? 145/62 mmHg Height: 157.00 cm ?BSA: ?1.73 m? ? ? Weight: 72.00 kg ? Tech: ? MHR ? Referring MD: SUSANNE MAGUIRE Site: ? [facility] Reading Location: [facility] Patient Location: Inpatient. Procedure: 2D, Color Doppler and Spectral Doppler. Indication for study: stroke, left hand weakness Cardiac Rhythm: Regular.Study quality: Fair. Final Impressions: 1. Normal LV size, normal wall thickness, normal global systolic function with an estimated EF of 60 - 65%. 2. Grade 2 pattern of LV diastolic filling. 3. Right ventricular cavity size is normal, global systolic RV function is normal. 4. The aortic valve is sclerotic and tricuspid, no stenosis and trivial regurgitation. 5. The mitral valve is normal, mild mitral regurgitation. 6. No pericardial effusion. Chamber Sizes and Function Normal left ventricular size, normal wall thickness, normal global systolic function with an estimated EF of 60 - 65%. No definite resting regional wall motion abnormality seen. Left atrial size is normal. Right ventricular cavity size is normal, global systolic RV function is normal. RV wall thickness is normal. The right atrium is normal. Right atrial volume index is 12 ml/m? ? ?. Right atrial area is 11 cm? ? ?. The pulmonary artery is of normal size and origin. The sinus of Valsalva is normal sized. The ascending aorta is normal sized. Valves, RV Pressures and Diastolic Function The aortic valve is sclerotic and tricuspid, no stenosis and trivial regurgitation. The mitral valve is normal in structure, mild mitral regurgitation. Spectral Doppler shows Grade 2 pattern of LV diastolic filling. The tricuspid valve is normal in structure. Tricuspid regurgitation is trace regurgitation. Unable to assess right ventricular systolic pressure. The pulmonic valve is normal. Trace pulmonary regurgitation. Masses, Effusion, Shunts There is no pericardial effusion. The inferior vena cava is normal sized, respiratory size variation greater than 50%. No left to right shunting was detected by limited color flow Doppler interrogation of the interatrial septum. MEASUREMENTS AND CALCULATIONS 2-D Measurements and LV Function: LVID (d) ?4.1 cm LV FS% (2D) ?? 36 % LVID (s) ?2.6 cm LVOT diameter 2.2 cm IVS (d) ? 1.0 cm HR ?68 bpm LVPW (d) ?1.0 cm LA Vol index ??19 ml/m2 Ao Sinus ?3.4 cm RA Vol index ??12 ml/m2 Ao ST junct 2.6 cm RA area ? 11 cm? ? ? Asc Ao ?2.9 cm RV Max 4C (d) 2.3 cm LA ?3.5 cm Diastology: Mitral ?Tissue Doppler E Peak 0.9 m/s ??e', Septum ? 0.05 m/s A Peak 1.1 m/s ??e', Lateral ?0.08 m/s E/A ?0.8 ?E/e' Average ?? 14.44 DT ? 223 msec Aortic Valve: Vmax ? 1.2 m/s ??JADA (V) ?? 2.44 cm? ? ? VTI ?0.26 m ?? JDAA (I) ?? 2.66 cm? ? ? LVOT V max 0.7 m/s ??Max PG ?5 mmHg LVOT VTI ?? 0.18 m ?? Mean PG ?? 3 mmHg SV ? 70 ml ?Dim Index 0.68 SV index ?? 40 ml/m? ? ? CO ?4.8 l/min ?CI ?2.7 l/min/m? ? ? Mitral Valve: MVA ?3.4 cm? ? ? MV P 1/2 65 msec Tricuspid Valve and estimated PA pressures: TAPSE 2.2 cm . This study was interpreted by an [facility] accredited facility. CC: HIM (med records) [facility], Med/Surg - IP [facility]. ??Final ?? Procedure Note Kartik Pena MD - 11/25/2023 ECHOCARDIOGRAM GALLITO WRIGHT : 1940 83 years Study Date: 11/25/2023 11:12:30 AM Gender: F BP: 145/62 mmHg Height: 157.00 cm BSA: 1.73 m? ? ? Weight: 72.00 kg Tech: [facility] Referring MD: SUSANNE MAGUIRE Site: [facility] Reading Location: [facility] Patient Location: Inpatient. Procedure: 2D, Color Doppler and Spectral Doppler. Indication for study: stroke, left hand weakness Cardiac Rhythm: Regular.Study quality: Fair. Final Impressions: 1. Normal LV size, normal wall thickness, normal global systolic functionwith an estimated EF of 60 - 65%. 2. Grade 2 pattern of LV diastolic filling. 3. Right ventricular cavity size is normal, global systolic RV functionis normal. 4. The aortic valve is sclerotic and tricuspid, no stenosis and trivialregurgitation. 5. The mitral valve is normal, mild mitral regurgitation. 6. No pericardial effusion. Chamber Sizes and Function Normal left ventricular size, normal wall thickness, normal globalsystolic function with an estimated EF of 60 - 65%. No definite restingregional wall motion abnormality seen. Left atrial size is normal. Rightventricular cavity size is normal, global systolic RV function is normal.RV wall thickness is normal. The right atrium is normal. Right atrialvolume index is 12 ml/m? ? ?. Right atrial area is 11 cm? ? ?. The pulmonaryartery is of normal size and origin. The sinus of Valsalva is normalsized. The ascending aorta is normal sized. Valves, RV Pressures and Diastolic Function The aortic valve is sclerotic and tricuspid, no stenosis and trivialregurgitation. The mitral valve is normal in structure, mild mitralregurgitation. Spectral Doppler shows Grade 2 pattern of LV diastolicfilling. The tricuspid valve is normal in structure. Tricuspidregurgitation is trace regurgitation. Unable to assess right ventricularsystolic pressure. The pulmonic valve is normal. Trace pulmonaryregurgitation. Masses, Effusion, Shunts There is no pericardial effusion. The inferior vena cava is normal sized,respiratory size variation greater than 50%. No left to right shunting wasdetected by limited color flow Doppler interrogation of the interatrialseptum. MEASUREMENTS AND CALCULATIONS 2-D Measurements and LV Function: LVID (d) 4.1 cm LV FS% (2D) 36 % LVID (s) 2.6 cm LVOT diameter 2.2 cm IVS (d) 1.0 cm HR 68 bpm LVPW (d) 1.0 cm LA Vol index 19 ml/m2 Ao Sinus 3.4 cm RA Vol index 12 ml/m2 Ao ST junct 2.6 cm RA area 11 cm? ? ? Asc Ao 2.9 cm RV Max 4C (d) 2.3 cm LA 3.5 cm Diastology: Mitral Tissue Doppler E Peak 0.9 m/s e', Septum 0.05 m/s A Peak 1.1 m/s e', Lateral 0.08 m/s E/A 0.8 E/e' Average 14.44 DT 223 msec Aortic Valve: Vmax 1.2 m/s JADA (V) 2.44 cm? ? ? VTI 0.26 m JADA (I) 2.66 cm? ? ? LVOT V max 0.7 m/s Max PG 5 mmHg LVOT VTI 0.18 m Mean PG 3 mmHg SV 70 ml Dim Index 0.68 SV index 40 ml/m? ? ? CO 4.8 l/min CI 2.7 l/min/m? ? ? Mitral Valve: MVA 3.4 cm? ? ? MV P 1/2 65 msec Tricuspid Valve and estimated PA pressures: TAPSE 2.2 cm . This study was interpreted by an [facility] accredited facility. CC: HIM (med records) [facility], Med/Surg - IP [facility]. Final Susanne Maguire MD ECHO ORD * SCAN-CT INTERPRETATION (11/21/2023 12:00 AM CDT) Anatomical Region Laterality Modality Other Scanner OTHER * MR SPINE LUMBAR WO (11/19/2023 12:00 AM CDT) Anatomical Region Laterality Modality Spine, LUMBAR SPINE Magnetic Res onance Waldo Bethea MD MR * MT NJX AA&/STRD TFRML EPI LUMBAR/SACRAL 1 LEVEL [...] Documents on File Type Date Recorded Patient Regional Guide Expl anation Healthcare Directive 11/14/2014 2:43 PM UPD ATED LIVING WILL/POWER OF LEAD MOBILE DEVELOPER FOR HEALTH CARE 03/20/00, [facility], 11/14/14 Care Teams Operations [place] Relationship Specialty Start Date End Date Vaishali Baeza MD [address] [place] [address] PCP - General 01/09/10 Lukas Feliz MD [address] [place] [address] Surgery - Otolaryngology 06/25/12 Waldo Bethea MD [address] [place] [address] Sports Medicine 06/25/12 Isha Gamble [address] [place] [address] Consulting Physician Allergy and Immunology 05/05/14 Isiah Price MD [address] [facility] [place] [address] Ophthalmology Surgery 06/19/15
--- OUTSIDE RECORDS SUMMARY | 2023-11-27 03:14 | XMS_ITS | Encounter Summary ---
Author Name Unknown Organization [facility] Address [address] [place] [address] Care Team Providers Care Supervisor [employer] Name Role Phone Elsewhere, Pcp Primary Care Provider Unavailabl e Encounter Details Date Type Department Care Team (Late st Contact Info) Description 02/11/2023 Documentation Division of Breast and Melanoma Surgical Oncology in [place], [place] [address] [place] [phone] Angela Mathis M.D. [address] [place] [address] Social History Tobacco Use Types Packs/Day Years [...] often do you attend chur ch or taoism services? More than 4 times per year 09/27/2022 Do you belong to any clubs o r organizations such as baptist groups, unions, fraternal or athletic groups, or [...] and heating? Not hard at all 09/27/2022 [facility] - Occupational Stress [...] place to sleep or slept in a group home (including now)? No 09/27/2022 Nutrition Answer Date [...] Sex Assigned at Female 06/28/2018 10:53 AM GEOGRAPHIC AREA INTELLIGENCE OFFICER Gender Identity Female 06/28/2018 10:53 AM GEOGRAPHIC AREA INTELLIGENCE OFFICER Sexual Orientation Straight 06/28/2018 10 :53 AM GEOGRAPHIC AREA INTELLIGENCE OFFICER documented as of this encounter Plan of Treatment Not on file documented as of this encounter Visit Diagnoses Not on filedocumented in this encounter Care Teams Supervisor [employer] Relationship Specialty Start Date End Date Elsewhere, Pcp PCP - General Family Medicine 06/04/21 documented as of this encounter
--- OUTSIDE RECORDS SUMMARY | 2023-11-27 03:14 | XMS_ITS ---
Author Name Unknown Organization [facility] Address [address] [place] [address] Care Team Providers Care Emt B Name Role Phone Unavailable Unavailable Unavailable Surgery Details Not on file Complications Check Surgery Details section. Procedure Estimated Blood Loss Check Surgery Details section. Procedure Findings Check Surgery Details section. Procedure Specimens Taken Check Surgery Details section.
--- OUTSIDE RECORDS SUMMARY | 2023-11-27 03:14 | XMS_ITS | Continuity of Care Document ---
Author Name Unknown Organization [facility] Address [address] [place] [address] Phone Care Team Providers Care Research Lab Assistant Name Role Phone Dinesh Sears Unavailable Unavailable [...] Available - Active Procedures Procedure Date Office/Outpatient Visit,[facility] 2017 Advance Directives Directive Yes / No Effective Date File Name No Information Encounters Encounter Description Practice Location Reason(s) For Visit Diagnoses Date Provider Providers Copied on Encounter [facility], [address], [place], [place], [id number], [place] tel:[phone] [facility] No Information Demetrio Montiel. [facility], [address], [place], [place], [id number], [place]. tel:[phone] Office/Outpat ient Visit,[facility], [facility], [address], [place], [place], [id number], [place] tel:[phone] [facility] Spondylolisth esis, cervical region Demetrio Montiel. [facility], [address], [place], [place], [id number], [place]. tel:[phone] Referring Provider: Vaishali Baeza , [place] [address], [place], [address]. tel:[phone] Family History Family Member Type Diagnosis Age At Onset No Information Payers Payer name Insurance type Covered alliance party ID Jonas robertson(s) [id number] Medicare Dominguez [id number] 1 Social History Type Description Quantity Date [...]
--- OUTSIDE RECORDS SUMMARY | 2023-11-27 03:14 | XMS_ITS | Encounter Summary ---
Author Name Unknown Organization [facility] Address [address] [place] [address] Care Team Providers Care Flight Engineer Name Role Phone Elsewhere, Pcp Primary Care Provider Unavailabl e Reason for Visit * Appointment Request (Routine) - Closed Specialty Diagnoses / Procedures Referred By Conttete t Referred To Contact Dermatology Diagnoses Lesion Skin Referral ID Status Reason Start Date Expiration Date Visits Re quested Visits Authorized [id number] Closed 08/24/2023 08/23/2024 1 1 Encounter Details Date Type Department Care Team (Latest Contact Info) Description 08/25/2023 10:40 AM EXPERIENCED TRUCK DRIVER Comprehensive Visit Department of Dermatology in [place], [place] [address] [place] [phone] Darlene Orlando M.D. [address] [place] [phone] Amara Mathias M.D. [address] [place] [phone] Personal History Of Malignant Melanoma Of Skin [...] How often do you attend chur or jew services? More than 4 times per year 09/27/2022 Do you belong to any clubs o r organizations such as buddhist groups, unions, fraternal or athletic groups, or [...] and heating? Not hard at all 09/27/2022 [facility] [place] [facility] Occupat ional Health - Occupational Stress [...] place to sleep or slept in a correction (including now)? No 09/27/2022 Nutrition Answer Date [...] Sex Assigned at Female 06/28/2018 10:53 AM EXPERIENCED TRUCK DRIVER Gender Identity Female 06/28/2018 10:53 AM EXPERIENCED TRUCK DRIVER Sexual Orientation Straight 06/28/2018 10 :53 AM EXPERIENCED TRUCK DRIVER documented as of this encounter Progress Notes * Amara Mathias M.D. - 08/25/2023 10:40 AM CST CORRESPONDENCE TO: Amara Mathias M.D. Supervised by: Dr. Beau Arango Patient seen and discussed with supervising wellness consultant,who evaluated the patient and concurs with [...] for which we recommended topical treatment with [id number] minoxidil 5% foam to the scalp once [...] visit for reassessment. #5 Seborrheic keratoses #6 Sarmineto angiomas #7 Solar lentigines The benign nature [...] of patient expressed understanding of the content. RIENCED TRUCK DRIVER Associated attestation - Beau Dill M.D. - 08/25/2023 2:00 PM EXPERIENCED TRUCK DRIVER I saw and evaluated the patient, participating [...] Inflamed documented in this encounter Care Teams Flight Engineer Relationship Specialty Start Date End Date Elsewhere, Pcp PCP - General Family Medicine 06/04/21 documented as of this encounter
--- OUTSIDE RECORDS SUMMARY | 2023-11-27 03:14 | XMS_ITS | Continuity of Care Document ---
Author Name Unknown Organization [facility] Address [address] [place] [address] Phone Care Team Providers Care Vehicle Inspector Name Role Phone Sarah Grant MD Unavailable Unavailable Allergies, Adverse Reactions, Alerts Substance Reaction Status Criticality lisinopril Active No Information Penicillins Active No Information Medications Medication Instructions Dosage Effective Dates (start - stop) Status Comments Advil 200 mg Tab 4-6 tablets daily - Activ e Nutritional Supplement Oral Liquid 1-3 times daily, sublingual allergy drops - Active NASAL SPRAY (unknown strength) Not [...] [facility], [address], [place], [address], [place] tel:[phone] [facility] , No Information 3 Rudy Smith. [facility] [address], [place], [address], [place]. tel:[phone] Office/Outpa tient Visit, New [facility], [address], [place], [address], [place] tel:[phone] [facility] , Pain All Over (chief complaint) Hallux rigidusPain in joint involving multiple sitesFatigue / MalaiseMyalg ia and myositis, unspecified 3 Rudy Smith. [facility] [address], [place], [address], [place]. tel:[phone] Referring Provider: Sarah Haider, [facility] [address], [place], [address]. tel:[phone] [facility], [address], [place], [address], [place] tel:[phone] [facility] , No Information 3 Rudy Smith. [facility] [address], [place], [address], [place]. tel:[phone] Family History Family Member Type Diagnosis Age At Onset mother Problem (finding) osteoarthritis Payers Payer name Insurance type Covered green party ID Authoriza tion(s) [employer] Medicare Advantage/Plat inum Blue BL [id number] Social History Type Description Quantity Date Captured [...]
--- OUTSIDE RECORDS SUMMARY | 2023-11-27 03:14 | XMS_ITS | Clinical Summary ---
Author Name Unknown Organization [facility] Address [address] [place] [address] Care Team Providers Care Correspondence Clerk Name Role Phone Elsewhere, Pcp Primary Care Provider Unavailabl e Source Comments Patient records contain information from all sites at [facility]. For routine questions regarding patient records, call [phone] during business hours, M-F 8:00 AM - 5:00 PM Central Time. Record requests for emergency care only can be directed to [phone] at any time.[facility] Allergies Active Allergy Reactions Criticality Noted Date [...] Overview: Added automatically from request for surgery [id number] Fibromyalgia 05/17/2021 Primary Generalized Osteoarthritis 05/17/2021 Arthroplasty [...] How often do you attend chur or religion services? More than 4 times per year 09/27/2022 Do you belong to any clubs o r organizations such as pentecostal groups, unions, fraternal or athletic groups, or [...] and heating? 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 at [facility] Bone or Tissue Left: Leg Integra 05/09/2023 [id number] / / [id number] Conversions - Default Historical Implant Device Implanted:05/05 (Quantity not on file) Hardware e.g. pins/screws /rods Right: Foot Description:Body Location - Foot R. Device Status Text - Hardware. screws. Clp Hrzn Ti 6 Clp Md Ruel - [id number] Implanted:Qty: 1 on 12/17/2021 by Brenda Mansfield D.O. at [facility] Hardware e.g. pins/screws /rods [employer] [id number] / / Clp Hrzn Ti 6 Clp Sm Red - [id number] Implanted:Qty: 1 on 12/17/2021 by Brenda Mansfield D.O. at [facility] Hardware e.g. pins/screws /rods [employer] [id number] / / Clp Hrzn Ti 6 Clp Sm Red - [id number] Implanted:Qty: 1 on 12/17/2021 by Brenda Mansfield D.O. at [facility] Hardware e.g. pins/screws /rods [employer] [id number] 07/21/2026 [id number] / / [id number] Clp Hrzn Ti 6 Clp Sm Red - [id number] Implanted:Qty: 1 on 12/17/2021 by Brenda Mansfield D.O. at [facility] Hardware e.g. pins/screws /rods [employer] [id number] 06/16/2026 [id number] / / [id number] Hip Implant- 0 Implanted:04/11 (Quantity not on file) Hip Implant Right: Hip Description:Implanted at [facility] Ocular Lens Ocular Lens Bilater al: Eye Procedures Procedure Name Priority Date/Time Associated Diagnosis Comments EXTI BASIC METABOLIC PANEL, S/P Routine 03/05/2023 11:49 AM CDT from Last 3 Months or Most Recently Relevant to Health Maintenance Advance Directives For more information, please contact: [phone] * Full Code (Latest Code Status on File) Date Activated Date Inactivated Comments 12/17/2021 2:23 PM 12/18/2021 4:24 PM Question Answer Comments Full Code: Discussed * Full Code Date Activated Date Inactivated Comments 12/17/2021 5:44 AM 12/17/2021 2:23 PM Question Answer Comments Full Code: Not Discussed Due to: Not medically appropriate Care Teams Correspondence Clerk Relationship Specialty Start Date End Date Elsewhere, Pcp PCP - General Family Medicine 06/04/21
== END 2023-11-24 14:20 | disposition home or self-care (01) ==
LOC: AMB 11-27 03:12
PROVIDERS: PCP Family Medicine; Visit Provider Family Medicine
DX: I63.9 Cerebral infarction, unspecified (principal)
CPT/HCPCS: A0425; A0427

== ENCOUNTER 2023-11-24 14:46 | Observation (INO) | payer MEDICARE, SELFPAY ==
[2023-11-24] VITALS (20 sets, daily range): BP systolic 137–172; BP diastolic 55–113; PULSE 63–86; RESP 16–18; TEMP 36.3–36.6; O2SAT 93–97; BMI 27.4; BMI 29.0
--- NOTE | 2023-11-24 | CT_ITS ---
Patient: GALLITO WRIGHT Facility:?[facility] Patient ID:?[id number] Site Patient ID:?[id number]. Site :?[id number] Study:?CT-Head stroke code-11/24/2023 2:55:30 PM Ordering Physician:Dc Draper Final Report: INDICATION: Left arm weakness. COMPARISON: 11/21/2023 TECHNIQUE: CT of the head without intravenous contrast. Please note that all CT scans at this facility use dose modulation, iterative reconstruction, and/or weight-based dosing when appropriate to reduce radiation dose to as low as reasonably achievable. FINDINGS: Loss of emerson-white definition involving the right precentral gyrus (5; 46) with subtle positive mass effect (mild sulcal effacement) consistent with an acute cortical infarct. Unchanged multifocal chronic cortical infarcts with loss of emerson-white definition involving the contralateral left precentral and postcentral gyri (5; 50, 47) and mesial left parietal cortex near the vertex (5; 50). Otherwise, note is again made of generalized cerebral atrophy. No intracranial hemorrhage, mass, mass effect or hydrocephalus. Rightward deviated nasal septum. Bilateral lens implants. IMPRESSION: Findings consistent with a small acute cortical infarct involving the right precentral gyrus. This was discussed directly with Dr. Rolon at 3:12 p.m. RN PROGRESSIVE CARE UNIT. No intracranial hemorrhage. Incidental findings described above. Please note that all CT scans at this facility use dose modulation, iterative reconstruction, and/or weight-based dosing when appropriate to reduce radiation dose to as low as reasonably achievable. Dictated by Salvador Gutierrez MD @ 11/24/2023 3:15:00 PM Signed by:?Salvador Gutiererz MD @11/24/2023 3:15:00 PM (Electronic Signature)
--- NOTE | 2023-11-24 14:59 | ED_ITS ---
HPI - General Adult General Time Seen by Provider: 14:59 Date Seen: 11/24/23 Chief complaint: Neuro Symptoms/Altered Deficit Stated complaint: CVA Time Seen by Provider: 11/24/23 14:49 Source: patient and RN notes reviewed Mode of arrival: ambulatory Limitations: no limitations History of Present Illness HPI narrative: This 83yo female is brought by EMS from [facility] with improving left arm weakness. Dr. Baeza was supposed to be seeing this patient at 2:40 today for follow up of ED visit on 11/21/23 with left arm weakness. Patient had head CT/CTA's done. Neuro-stroke was involved, discharged to home with ongoing 81mg aspirin use. She started around 1pm today with complaints that her left arm just went . She couldn't use it, cannot tell me if it was numb or not. As of this time, she has been able to start moving her left hand/arm but it is still weak. She also was complaining of left facial numbness with this but no motor symptoms, Dr. Baeza noted left facial numbness and inability to use left hand/arm at all with her. On arrival, left facial numbness has gone away. She does have a history of cervical radiculopathy but there is no left arm pain. Reported the patient had some squiggly vision changes and headache in her right eye on Thursday. Thursday morning she awoke with pressure symptoms in her left arm which progressed reportedly to weakness. Related Data Home Medications Medication Instructions Recorded Confirmed albuterol sulfate 90 mcg/actuation 1 - 2 puff inhalation Q4H PRN 01/03/23 11/24/23 aerosol inhaler dyspnea estradiol 10 mcg vaginal tablet 10 mcg vaginal 3XW 01/03/23 11/24/23 (Yuvafem) losartan 50 mg tablet 50 mg PO DAILY 01/03/23 11/24/23 cetirizine 10 mg tablet (24Hour 10 mg PO DAILY PRN 11/21/23 11/24/23 Allergy) coQ10 (ubiquinol) 100 mg capsule 100 mg PO DAILY 11/21/23 11/24/23 (Qunol Eduardo CoQ10) diclofenac sodium 75 mg 75 mg PO DAILY 11/21/23 11/24/23 tablet,delayed release oxycodone 5 mg tablet 5 mg PO Q6H PRN pain 11/21/23 11/24/23 Lactobacillus rhamnosus GG 10 1 cap PO DAILY 11/24/23 11/24/23 billion cell capsule (Culturelle) acetaminophen 500 mg tablet 1,000 mg PO BID 11/24/23 11/24/23 calcium carbonate 200 mg-vitamin 2 cap PO DAILY 11/24/23 11/24/23 D3 10 mcg (400 unit) capsule cholecalciferol (vitamin D3) 50 4,000 unit PO DAILY 11/24/23 11/24/23 mcg (2,000 unit) capsule Previous Rx's Medication Instructions Recorded clopidogrel 75 mg tablet 75 mg PO DAILY 20 days #20 tabs 11/25/23 rosuvastatin 20 mg tablet 20 mg PO HS #30 tabs 11/25/23 Allergies Allergy/AdvReac Type Severity Reaction Status Date / Time aluminum Allergy Verified 11/21/23 18:15 cefuroxime [From Ceftin] Allergy Verified 11/21/23 18:15 diphtheria toxoid,fluid Allergy Verified 11/21/23 18:15 doxycycline Allergy Verified 11/21/23 18:15 gabapentin Allergy Verified 11/21/23 18:15 grass pollen Allergy Verified 11/21/23 18:15 lisinopril Allergy Verified 11/21/23 18:15 mold Allergy Verified 11/21/23 18:15 Penicillins Allergy Verified 11/21/23 18:15 pneumococcal 7-valent Allergy Verified 11/21/23 18:15 conjugate to [From Prevnar] pneumococcal vaccine Allergy Verified 11/21/23 18:15 Sulfa (Sulfonamide Allergy Verified 11/21/23 18:15 Antibiotics) Review of Systems Status of ROS: Reports: 6 or more systems reviewed and unremarkable except as noted in History and below [facility] Medical History (Updated 11/25/23 @ 13:38 by Johana Cabello PA-C) Obstructive sleep apnea of adult (11/26/09) ?G47.33 - Obstructive sleep apnea (adult) (pediatric) (ICD-10) Malignant melanoma of left lower limb, including hip (12/06/21) ?C43.72 - Malignant melanoma of left lower limb, including hip (ICD-10) Osteoarthritis of left hip (12/17/12) ?M16.12 - Unilateral primary osteoarthritis, left hip (ICD-10) Personal history of allergy to antibiotic agent (05/17/21) ?Z88.1 - Allergy status to other antibiotic agents (ICD-10) 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) ?N99.3 - Prolapse of vaginal vault after hysterectomy (ICD-10) Primary insomnia (07/17/15) ?F51.01 - Primary insomnia (ICD-10) Personal history of colonic polyps (05/27/13) ?Z86.010 - Personal history of colonic polyps (ICD-10) OAB (overactive bladder) (02/14/19) ?N32.81 - Overactive bladder (ICD-10) Nocturnal polyuria (02/14/19) ?R35.81 - Nocturnal polyuria (ICD-10) Left carotid stenosis (03/19/17) ?I65.22 - Occlusion and stenosis of left carotid artery (ICD-10) Hyperlipidemia (05/17/21) ?E78.5 - Hyperlipidemia, unspecified (ICD-10) HTN (hypertension) (11/13/09) ?I10 - Essential (primary) hypertension (ICD-10) Hallux rigidus of right foot (07/07/12) ?M20.21 - Hallux rigidus, right foot (ICD-10) GERD (gastroesophageal reflux disease) (06/29/09) ?K21.9 - Gastro-esophageal reflux disease without esophagitis (ICD-10) Fibromyalgia (05/17/21) ?M79.7 - Fibromyalgia (ICD-10) DDD (degenerative disc disease), cervical (10/27/17) ?M50.30 - Other cervical disc degeneration, unspecified cervical region (ICD- 10) Daytime somnolence (02/14/19) ?R40.0 - Somnolence (ICD-10) Cervicalgia ?M54.2 - Cervicalgia (ICD-10) Bladder prolapse, female, acquired (06/19/15) ?N81.10 - Cystocele, unspecified (ICD-10) Arthritis of carpometacarpal (CMC) joints of both thumbs (02/06/17) ?M18.0 - Bilateral primary osteoarthritis of first carpometacarpal joints (ICD-10) Allergic rhinitis, cause unspecified ?J30.9 - Allergic rhinitis, unspecified (ICD-10) Adverse reaction to sulfa antibiotic (11/03/13) ?T37.0X5A - Adverse effect of sulfonamides, initial encounter (ICD-10) Surgical History (Updated 11/24/23 @ 17:38 by Sean Maguire MD) Status post intraocular lens implant (04/10/21) ?Z96.1 - Presence of intraocular lens (ICD-10) Status post left hip replacement (05/17/21) ?Z96.642 - Presence of left artificial hip joint (ICD-10) Family History (Updated 11/24/23 @ 17:39 by Sean Maguire MD) Son Colon cancer Sister Diabetes High blood pressure Father Heart disease Mother Alzheimers disease Social History What is your current living situation?: I presently have a place to live Problems where you live: no known problems Problems where you live details: N/A In the past 12 months, utilities in danger of being shut off: no In past 12 months, lack of transportation kept you from medical appts, meetings, work, or getting things needed for daily living: no In the past 12 mos, have been you worried that your food would run out before you had money to buy more?: never true In the past 12 mos, the food you bought just didn't last and you didn't have money to buy more?: never true Highest level of school completed/degree received: Associate degree: occupational, technical, vocational program Smoking Status: Never smoker Do you use any of these nicotine containing products: None Second hand tobacco smoke exposure: No How often do you have a drink containing alcohol: 4 or more times a week How many standard drinks containing alcohol do you have on a typical day: 1 or 2 AUDIT-C Alcohol total score: 4 Non-prescribed substance use: denies use Caffeine: Yes How often does anyone, including family, friends and others, physically hurt you : never How often does anyone, including family, friends and others, insult or talk down to you: never How often does anyone, including family, friends and others, threaten you with harm: never How often does anyone, including family, friends and others, scream or curse at you: never service: No Exam Const: Vital Signs, click to edit/add: Vital Signs - 24 hr 11/24/23 15:23 Temperature 97.3 F L Pulse Rate [Right Pulse Oximeter] 75 Respiratory Rate 18 Blood Pressure [Ri ght Upper Arm] 154/70 H Pulse Oximetry 97 Oxygen Delivery Me thod Room Air Patient was seen on arrival on her way to CT. She is alert, interactive, no apparent distress. Pupils equal round reactive, sclera clear. Symmetrical facial function, speech normal. No tachypnea, lungs clear. CV regular rate and rhythm no murmur. Abdomen is soft, nontender, nondistended. She is able to weakly hogshead filler my hand with her left hand, is starting to be able to raise her left hand off the bed. She cannot raise it against any resistance. Her hand hogshead filler strength is about 2/5. She has normal distal sensation in the hand. It is not strong enough to perform it any maneuvers, no tremors noted. Facial function is symmetric, no numbness noted now. Left lower extremity strength and sensation normal. Documenting provider has reviewed patient's vital signs: yes Course Course ED Course: I did opt to do a stat head CT on this patient, ensure no new changes, no evidence of any bleed. We will not proceed with CTA as she is already had 1 in the symptoms have been fluctuating since reportedly Thursday. She has been on an 81 mg aspirin. Will contact Stroke Neurology right away. Will have her on cardiac monitoring, obtain EKG, full complement of labs as well as pulse oxime try monitoring. I do think that this likely represents cerebrovascular disease, may need MRI of her brain but will talk to Stroke Neurology 1st. Doubtful that this patient would be a candidate for any type of thrombolytics given the ongoing nature of her symptoms. Again, will confer with stroke Neurology on this case. Reevaluation(s) Time of Reevaluation #1: 15:49 Reevaluation #1: Have reviewed with the patient that she indeed does have evidence of a stroke on her CT. Plan will be to hospitalize her. Consultations Consultation #1: Spoke with Dr. Ledbetter stroke neurologist. She does agree that we should proceed with brain MRI noncontrast. She will plan on seeing the patient in the interim via telehealth. 1531pm: [place] back from the stroke neurologist. There is reportedly a acute to subacute stroke in the right hemisphere. Patient will need admission here for further workup such is echo lipid 6 . Unfortunately, the patient states she absolutely would not be able to do an MRI unless was open sided or extremely heavily sedated. She did not think she would even be able to do it with any Ativan. Thus, she had me cancel the MRI at this time. She states it is visible on the CT. I will be talking to the hospitalist and update the patient. Patient is on 81 mg aspirin daily, have confirmed with the neurologist that the plan will be for Plavix for 21 days. Time: 14:55 Consultation #2: Spoke with Dr. Maguire the hospitalist, he accepts this patient. Time: 15:38 Vital Signs Vital signs: Initial Vital Signs Pulse Rate 73 11/24/23 15:01 Blood Pressure 154/70 H 11/24/23 15:01 Blood Pressure Mean 98 11/24/23 15:01 Pulse Oximetry 94 11/24/23 15:01 Vital Signs Pulse Rate 73 11/24/23 15:01 Blood Pressure 154/70 H 11/24/23 15:01 Pulse Oximetry 94 11/24/23 15:01 Temperature 97.9 F 11/25/23 11:00 Pulse Rate 72 11/25/23 11:00 Respiratory Rate 18 11/25/23 11:00 Blood Pressure 148/72 H 11/25/23 11:00 Pulse Oximetry 94 11/25/23 11:00 Oxygen Delivery Method Room Air 11/25/23 11:00 Medications Administered Medications: Discontinued Medications Generic Name Dose Route Start Last Admin Trade Name Freq PRN Reason Stop Dose Admin Acetaminophen 650 mg 11/24/23 17:00 11/25/23 13:05 Acetaminophen 325 Mg Tablet PO 650 mg QID SYLVIA Administration Aspirin 81 mg 11/25/23 09:00 11/25/23 08:59 Aspirin 81 Mg Tablet Ec PO 81 mg DAILY SYLVIA Administration Clopidogrel Bisulfate 75 mg 11/24/23 15:50 11/24/23 16:11 Clopidogrel 75 Mg Tablet PO 11/24/23 15:51 75 mg ONCE ONE Administration Clopidogrel Bisulfate 75 mg 11/25/23 09:00 11/25/23 08:59 Clopidogrel 75 Mg Tablet PO 75 mg DAILY SYLVIA Administration Losartan Potassium 50 mg 11/25/23 09:00 11/25/23 08:59 Losartan Potassium 50 Mg Tablet PO 50 mg DAILY SYLVIA Administration Estradiol [Yuvafem] 0 mcg 11/25/23 09:00 11/25/23 08:56 10 Mcg Tablet VAGINAL Not Given [id number] [facility] Oxycodone HCl 5 mg 11/24/23 16:53 11/24/23 20:44 Oxycodone 5 Mg Tablet PO 5 mg Q6H PRN Administration pain Rosuvastatin Calcium 10 mg 11/24/23 21:00 11/24/23 20:44 Rosuvastatin Calcium 10 Mg Tablet PO 10 mg HS SYLVIA Administration Sodium Chloride 5 ml 11/24/23 21:00 11/25/23 09:01 Sodium Chloride 0.9 % (Flush) 10 Ml Syringe IVF Not Given BID [facility] Medical Decision Making Lab Data Labs: Lab Results 11/24/23 Range/Units 15:30 WBC 5.66 (4.50-11.00) K/uL RBC 4.14 (4.00-5.20) m/uL Hgb 12.8 (12.0-16.0) gm/dL Hct 40.2 (33.0-51.0) % MCV 97 (80-100) fL MCH 31 (26-34) pg MCHC 32 (32-36) gm/dL RDW Coeff of Edis 13.3 (11.5-15.5) % Plt Count 284 (140-440) K/uL Neut % (Auto) 61.0 (42.0-72.0) % Lymph % (Auto) 28.3 (20-44) % [place] % (Auto) 7.1 (0.0-11.0) % Eos % (Auto) 2.7 (0.0-7.0) % Baso % (Auto) 0.7 (0.0-3.0) % Neut # (Auto) 3.46 (1.7-7.0) K/uL Lymph # (Auto) 1.60 (0.90-2.90) K/uL [place] # (Auto) 0.40 (0.00-0.90) K/UL Eos # (Auto) 0.15 (0.00-0.50) K/uL Baso # (Auto) 0.04 (0.00-0.30) K/uL Abs Immat Gran (auto) 0.01 (0.00-0.30) K/uL Imm/Tot Granulo (auto) 0.2 % INR 0.93 (0.91-1.10) APTT 34 H (23-33) Seconds Sodium 139 (135-149) mmol/L Potassium 4.4 (3.6-5.1) mmol/L Chloride 110 (96-114) mmol/L Carbon Dioxide 26 (20-32) mmol/L Anion Gap 3 L (7-15) mEq/L BUN 18 (7-30) mg/dL Creatinine 0.9 (0.5-1.5) mg/dL Estimated Creat Clear 34.30 Estimated GFR 64 ml/min Glucose 114 (60-115) mg/dL Calcium 9.4 (8.4-10.6) mg/dL Imaging Data CT scan - head: Attestation: I have reviewed the pertinent imaging results. Radiologist's impression: Patient: GALLITO WRIGHT Facility:?[facility] Patient ID:?[id number] Site Patient ID:?[id number]. Site :?[id number] Study:?CT Head stroke code-11/24/2023 2:55:30 PM Ordering Physician:Dc Draper Final Report: INDICATION: Left arm weakness. COMPARISON: 11/21/2023 TECHNIQUE: CT of the head without intravenous contrast. Please note that all CT scans at this facility use dose modulation, iterative reconstruction, and/or weight-based dosing when appropriate to reduce radiation dose to as low as reasonably achievable. FINDINGS: Loss of emerson-white definition involving the right precentral gyrus (5; 46) with subtle positive mass effect (mild sulcal effacement) consistent with an acute cortical infarct. Unchanged multifocal chronic cortical infarcts with loss of emerson-white definition involving the contralateral left precentral and postcentral gyri (5; 50, 47) and mesial left parietal cortex near the vertex (5; 50). Otherwise, note is again made of generalized cerebral atrophy. No intracranial hemorrhage, mass, mass effect or hydrocephalus. Rightward deviated nasal septum. Bilateral lens implants. IMPRESSION: Findings consistent with a small acute cortical infarct involving the right precentral gyrus. This was discussed directly with Dr. Rolon at 3:12 p.m. TRANSPORTATION PLANNING ENGINEER. No intracranial hemorrhage. Incidental findings described above. Please note that all CT scans at this facility use dose modulation, iterative reconstruction, and/or weight-based dosing when appropriate to reduce radiation dose to as low as reasonably achievable. Dictated by Salvador Gutierrez MD @ 11/24/2023 3:15:00 PM (Electronic Signature) ECG Data Attestation: I personally reviewed and interpreted this ECG as follows: (Normal sinus rhythm, 74 beats per minute. No with me a, no ischemic change. QT corrected 444 milliseconds.) Prior ECG tracings: available for review Discharge Plan Discharge Clinical Impression: Ischemic cerebrovascular accident (CVA) Patient Disposition: Admitted As Observation Condition: Improved Activity Level: No Restrictions Activity Detail: Outpatient PT/OT NO DRIVING Discharge Diet: Regular
--- OUTSIDE RECORDS SUMMARY | 2023-11-24 15:41 | XMS_ITS | Continuity of Care Document ---
Author Name Unknown Organization [facility] Address [address] [place] [address] Phone Care Team Providers Care Merchandising Director Name Role Phone Dinesh Sears Unavailable Unavailable [...] Date Office/Outpatient Visit,[facility] 2017 Advance Directives Directive Yes / No Effective Date File Name No Information Encounters Encounter Description Practice Location Reason(s) For Visit Diagnoses Date Provider Providers Copied on Encounter [facility], [address], [place], [place], [id number], [place] tel:[phone] [facility] No Information Demetrio Montiel. [facility], [address], [place], [place], [id number], [place]. tel:[phone] Office/Outpat ient Visit,[facility], [facility], [address], [place], [place], [id number], [place] tel:[phone] [facility] Spondylolisth esis, cervical region Demetrio Montiel. [facility], [address], [place], [place], [id number], [place]. tel:[phone] Referring Provider: Vaishali Baeza , [place], [place], [address]. tel:[phone] Family History Family Member Type Diagnosis Age At Onset No Information Payers Payer name Insurance type Covered alliance party ID Jonas robertson(s) [facility] [id number] Medicare Dom[place] [id number] 1 Social History Type Description Quantity Date [...]
--- OUTSIDE RECORDS SUMMARY | 2023-11-24 15:41 | XMS_ITS | Continuity of Care Document ---
Author Name Unknown Organization [facility] Address [address] [place] [address] Phone Care Team Providers Care Brineyard Supervisor Name Role Phone Sarah Grant MD Unavailable [...] [facility], [address], [place], [address], [place] tel:[phone] [facility] , No Information 3 Rudy Smith. [facility] [address], [place], [address], [place]. tel:[phone] Office/Outpa tient Visit, [facility], [address], [place], [address], [place] tel:[phone] [facility] , Pain All Over (chief complaint) Hallux rigidusPain in joint involving multiple sitesFatigue / MalaiseMyalg ia and myositis, unspecified 3 Rudy Smith. [facility] [address], [place], [address], [place]. tel:[phone] Referring Provider: Sarah Haider, [facility] [address], [place], [address]. tel:[phone] [facility], [address], [place], [address], [place] tel:[phone] [facility] , No Information 3 Rudy Smtih. [facility] [address], [place], [address], [place]. tel:[phone] Family History Family Member Type Diagnosis Age At Onset mother Problem (finding) osteoarthritis Payers Payer name Insurance type Covered alliance party ID Authoriza tion(s) [employer]vantage/[employer] [id number] Social History Type Description Quantity Date Captured [...]
--- OUTSIDE RECORDS SUMMARY | 2023-11-24 15:42 | XMS_ITS | Referral Summary ---
Author Name Unknown Organization [facility] Address [address] [place] [address] Care Team Providers Care Used Car Manager Name Role Phone Elsewhere, Pcp Primary Care Provider Unavailabl e Source Comments Patient records contain information from all sites at [facility]. For routine questions regarding patient records, call [phone] during business hours, M-F 8:00 AM - 5:00 PM Central Time. Record requests for emergency care only can be directed to [phone] at any time.[facility] Encounters Date Type Department Care Team Description 08/25/2023 10:40 AM UTILITIES MANAGER Comprehensive Visit Department of Dermatology in [place], [place] [address] [place] [address] Darlene Orlando M.D. Handfield, Chelsea N, M.D. [...] Overview: Added automatically from request for surgery [id number] Fibromyalgia 05/17/2021 Primary Generalized Osteoarthritis 05/17/2021 Arthroplasty [...] week 09/27/2022 How often do you attend [facility] or muslim services? More than 4 times per year 09/27/2022 Do you belong to any clubs o r organizations such as cheondoism groups, unions, fraternal or athletic groups, or [...] and heating? Not hard at all 09/27/2022 [facility] [place] of Occupat ional Health - Occupational Stress [...] place to sleep or slept in a residential (including now)? No 09/27/2022 Nutrition Answer Date [...] Sex Assigned at Female 06/28/2018 10:53 AM UTILITIES MANAGER Gender Identity Female 06/28/2018 10:53 AM UTILITIES MANAGER Sexual Orientation Straight 06/28/2018 10 :53 AM UTILITIES MANAGER Last Filed Vital Signs Vital Sign Reading [...] on file Medical Devices Implanted Type Area Precipitator Operator Device Identifier Shelf Expiration Date Model / Serial / Lot Drsg Bilayer Matrix 5x5 - [id number] Implanted:Qty: 1 on 12/17/2021 by Brenda Mansfield D.O. at [facility] Bone or Tissue Left: Leg Integra 05/09/2023 [id number] / / [id number] Conversions - Default Historical Implant Device Implanted:05/05 (Quantity not on file) Hardware e.g. pins/screws /rods Right: Foot Description:Body Location - Foot R. Device Status Text - Hardware. screws. Clp Hrzn Ti 6 Clp Ruel - [id number] Implanted:Qty: 1 on 12/17/2021 by Brenda Mansfield D.O. at [facility] Hardware e.g. pins/screws /rods [employer] [id number] / / Clp Hrzn Ti 6 Clp Sm Red - [id number] Implanted:Qty: 1 on 12/17/2021 by Brenda Mansfield D.O. at [facility] Hardware e.g. pins/screws /rods [employer] / / Clp Hrzn Ti 6 Clp Sm Red - [id number] Implanted:Qty: 1 on 12/17/2021 by Brenda Mansfield D.O. at [facility] Hardware e.g. pins/screws /rods [employer] [id number] 07/21/2026 / [id number] Clp Hrzn Ti 6 Clp Sm Red - [id number] Implanted:Qty: 1 on 12/17/2021 by Brenda Mansfield D.O. at [facility] Hardware e.g. pins/screws /rods [employer] [id number] 06/16/2026 [id number] Hip Implant- 0 Implanted:04/11 (Quantity not on file) Hip Implant Right: Hip Description:Implanted at [facility] Ocular Lens Ocular Lens Bilater al: Eye Procedures Procedure Name Priority Date/Time Associated Diagnosis Comments EXTI BASIC METABOLIC PANEL, S/P Routine 03/05/2023 11:49 AM CDT from Last 3 Months or Most Recently Relevant to Health Maintenance Advance Directives For more information, please contact: [phone] * Full Code (Latest Code Status on File) Date Activated Date Inactivated Comments 12/17/2021 2:23 PM 12/18/2021 4:24 PM Question Answer Comments Full Code: Discussed * Full Code Date Activated Date Inactivated Comments 12/17/2021 5:44 AM 12/17/2021 2:23 PM Question Answer Comments Full Code: Not Discussed Due to: Not medically appropriate Care Teams Used Car Manager Relationship Specialty Start Date End Date Elsewhere, Pcp PCP - General Family Medicine 06/04/21
--- OUTSIDE RECORDS SUMMARY | 2023-11-24 15:42 | XMS_ITS | Encounter Summary ---
Author Name Unknown Organization [facility] Address [address] [place] [address] Care Team Providers Care Exhibition Specialist Name Role Phone Elsewhere, Pcp Primary Care Provider Unavailabl e Encounter Details Date Type Department Care Team (Late st Contact Info) Description 02/11/2023 Documentation Division of Breast and Melanoma Surgical Oncology in [place], [place] [address] [place] [phone] Angela Mathis M.D. [address] [place] [address] Social History Tobacco Use Types Packs/Day Years [...] often do you attend chur ch or roman catholic services? More than 4 times per year 09/27/2022 Do you belong to any clubs o r organizations such as yazidism groups, unions, fraternal or athletic groups, or [...] and heating? Not hard at all 09/27/2022 [facility] of Occupat ional Health - Occupational [...] place to sleep or slept in a longterm (including now)? No 09/27/2022 Nutrition Answer Date [...] Sex Assigned at Female 06/28/2018 10:53 AM MANAGER NUCLEAR Gender Identity Female 06/28/2018 10:53 AM MANAGER NUCLEAR Sexual Orientation Straight 06/28/2018 10 :53 AM MANAGER NUCLEAR documented as of this encounter Plan of Treatment Not on file documented as of this encounter Visit Diagnoses Not on filedocumented in this encounter Care Teams Exhibition Specialist Relationship Specialty Start Date End Date Elsewhere, Pcp PCP - General Family Medicine 06/04/21 documented as of this encounter
--- OUTSIDE RECORDS SUMMARY | 2023-11-24 15:42 | XMS_ITS ---
Author Name Unknown Organization [facility] Address [address] [place] [address] Care Team Providers Care Dope And Fabric Worker Name Role Phone Unavailable Unavailable Unavailable Surgery Details Not on file Complications Check Surgery Details section. Procedure Estimated Blood Loss Check Surgery Details section. Procedure Findings Check Surgery Details section. Procedure Specimens Taken Check Surgery Details section.
--- OUTSIDE RECORDS SUMMARY | 2023-11-24 15:42 | XMS_ITS | Clinical Summary ---
Author Name Unknown Organization [facility] Address [address] [place] [address] Care Team Providers Care Manager Simulation Name Role Phone Elsewhere, Pcp Primary Care Provider Unavailabl e Source Comments Patient records contain information from all sites at [facility]. For routine questions regarding patient records, call [phone] during business hours, M-F 8:00 AM - 5:00 PM Central Time. 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 Handfield, Chelsea N, M.D. [...] often do you attend chur ch or mormon services? More than 4 times per year 09/27/2022 Do you belong to any clubs o r organizations such as sabianist groups, unions, fraternal or athletic groups, or [...] and heating? Not hard at all 09/27/2022 [facility] [place] of Occupat ional Health - Occupational Stress [...] place to sleep or slept in a mcfp (including now)? No 09/27/2022 Nutrition Answer Date [...] Sex Assigned at Female 06/28/2018 10:53 AM GI TECHNICIAN Gender Identity Female 06/28/2018 10:53 AM GI TECHNICIAN Sexual Orientation Straight 06/28/2018 10 :53 AM GI TECHNICIAN Last Filed Vital Signs Vital Sign Reading [...] history exists Medical Devices Implanted Type Area Engineer Systems Device Identifier Shelf Expiration Date Model / Serial / Lot Vinnie Bilayer Matrix 5x5 - [id number] Implanted:Qty: 1 on 12/17/2021 by Brenda Mansfield D.O. at [facility] Bone or Tissue Left: Leg Integra 05/09/2023 [id number] / / [id number] Conversions - Default Historical Implant Device Implanted:05/05 (Quantity not on file) Hardware e.g. pins/screws /rods Right: Foot Description:Body Location - Foot R. Device Status Text - Hardware. screws. Clp Hrzn Ti 6 Clp Md Ruel - [id number] Implanted:Qty: 1 on 12/17/2021 by Brenda Mansfield D.O. at [facility] Hardware e.g. pins/screws /rods [employer] [id number] / / Clp Hrzn Ti 6 Clp Sm Red - [id number] Implanted:Qty: 1 on 12/17/2021 by Brenda Mansfield D.O. at [facility] Hardware e.g. pins/screws /rods [employer] [id number] / / Clp Hrzn Ti 6 Clp Sm Red - [id number] Implanted:Qty: 1 on 12/17/2021 by Brenda Mansfield D.O. at [facility] Hardware e.g. pins/screws /rods [employer] [id number] 07/21/2026 [id number] / / [id number] Clp Hrzn Ti 6 Clp Sm Red - [id number] Implanted:Qty: 1 on 12/17/2021 by Brenda Mansfield D.O. at [facility] Hardware e.g. pins/screws /rods [employer] [id number] 06/16/2026 [id number] / / [id number] Hip Implant- 0 Implanted:04/11 (Quantity not on file) Hip Implant Right: Hip Description:Implanted at [facility] Ocular Lens Ocular Lens Bilater al: Eye Procedures Procedure Name Priority Date/Time Associated Diagnosis Comments EXTI BASIC METABOLIC PANEL, S/P Routine 03/05/2023 11:49 AM CDT from Last 3 Months or Most Recently Relevant to Health Maintenance Advance Directives For more information, please contact: [phone] * Full Code (Latest Code Status on File) Date Activated Date Inactivated Comments 12/17/2021 2:23 PM 12/18/2021 4:24 PM Question Answer Comments Full Code: Discussed * Full Code Date Activated Date Inactivated Comments 12/17/2021 5:44 AM 12/17/2021 2:23 PM Question Answer Comments Full Code: Not Discussed Due to: Not medically appropriate Care Teams Manager Simulation Relationship Specialty Start Date End Date Elsewhere, Pcp PCP - General Family Medicine 06/04/21
--- OUTSIDE RECORDS SUMMARY | 2023-11-24 15:42 | XMS_ITS | Encounter Summary ---
Author Name Unknown Organization [facility] Address [address] [place] [address] Care Team Providers Care Collar Setter Overlock Name Role Phone Elsewhere, Pcp Primary Care Provider Unavailabl e Reason for Visit * Appointment Request (Routine) - Closed Specialty Diagnoses / Procedures Referred By Conttete t Referred To Contact Dermatology Diagnoses Lesion Skin Referral ID Status Reason Start Date Expiration Date Visits Re quested Visits Authorized [id number] Closed 08/24/2023 08/23/2024 1 1 Encounter Details Date Type Department Care Team (Latest Contact Info) Description 08/25/2023 10:40 AM TANK TRUCK MILK RECEIVER Comprehensive Visit Department of Dermatology in [place], [place] [address] [place] [phone] Darlene Orlando M.D. [address] [place] [phone] Amara Mathias M.D. [address] [place] [phone] Personal History Of Malignant Melanoma Of Skin [...] How often do you attend chur or faith services? More than 4 times per year 09/27/2022 Do you belong to any clubs o r organizations such as temple groups, unions, fraternal or athletic groups, or [...] and heating? Not hard at all 09/27/2022 [facility] [place] of Occupat ional Health - Occupational Stress [...] Sex Assigned at Female 06/28/2018 10:53 AM TANK TRUCK MILK RECEIVER Gender Identity Female 06/28/2018 10:53 AM TANK TRUCK MILK RECEIVER Sexual Orientation Straight 06/28/2018 10 :53 AM TANK TRUCK MILK RECEIVER documented as of this encounter Progress Notes * Amara Mathias M.D. - 08/25/2023 10:40 AM CST CORRESPONDENCE TO: Amara Mathias M.D. Supervised by: Dr. Beau Arango Patient seen and discussed with supervising review consultant,who evaluated the patient and concurs with [...] for which we recommended topical treatment with zwln-ehu-xmosqol minoxidil 5% foam to the scalp once [...] of patient expressed understanding of the content. TRUCK MILK RECEIVER Associated attestation - Beau Dill M.D. - 08/25/2023 2:00 PM TANK TRUCK MILK RECEIVER I saw and evaluated the patient, participating [...] Inflamed documented in this encounter Care Teams Collar Setter Overlock Relationship Specialty Start Date End Date Elsewhere, Pcp PCP - General Family Medicine 06/04/21 documented as of this encounter
[2023-11-24 15:43] LABS: Basophils Absolute Auto 0.04 K/uL (0.00-0.30); Basophils Percent Auto 0.7 % (0.0-3.0); Eosinophils Absolute Auto 0.15 K/uL (0.00-0.50); Eosinophils Percent Auto 2.7 % (0.0-7.0); Hematocrit 40.2 % (33.0-51.0); Hemoglobin* 12.8 gm/dL (12.0-16.0); Immature Granulocytes Abs Auto 0.01 K/uL (0.00-0.30); Immature Granulocytes Pct Auto 0.2 %; Lymphocytes Percent Auto 28.3 % (20-44); Mean Corpuscular HGB Conc 32 gm/dL (32-36); Mean Corpuscular Hemoglobin 31 pg (26-34); Mean Corpuscular Volume 97 fL (80-100); Monocytes Percent Auto 7.1 % (0.0-11.0); Neutrophils Absolute Auto 3.46 K/uL (1.7-7.0); Platelet Count* 284 K/uL (140-440); RDW Coefficient of Variation % 13.3 % (11.5-15.5); Red Blood Count 4.14 m/uL (4.00-5.20); White Blood Count* 5.66 K/uL (4.50-11.00)
--- OUTSIDE RECORDS SUMMARY | 2023-11-24 15:43 | XMS_ITS | Clinical Summary ---
Author Name Unknown Organization [email or web address] Address [place], [place] [address] Care Team Providers Care Client Development Consultant Name Role Phone Vaishali Baeza MD Primary Care Provide r Lukas Feliz MD Unavailable Waldo Bethea MD Unavailable Isha Gamble Unavailable Isiah Price MD Unavailable [phone] Allergies Active Allergy Reactions Criticality Noted [...] Overview: Added automatically from request for surgery [id number] Retinal detachment with retinal defect 1 Overview: [...] Encounters Date Type Department Care Team Description 11/24/2023 2:40 PM CDT Office Visit [facility] [address] [place] [address] Vaishali Baeza MD Arm Pain/problem 11/24/2023 Orders [address] [place] [address] Waldo Bethea MD 1 scan: (1-Ord) [facility], LUMBAR SPINE, 11/19/2023 11/24/2023 Travel 11/11/2023 2:00 PM CDT Office Visit [facility] [address] [place] [address] Waldo Bethea MD Musculoskeletal Problem (Follow up back pain) 11/11/2023 Travel 10/20/2023 9:40 AM CDT Office Visit [facility] [address] [place] [address] Waldo Bethea MD Procedure (Bilateral L5-S1 TFESI) 10/17/2023 Travel 10/12/2023 Telephone [facility] [address] [place] [address] Waldo Bethea MD Prior Authorization (PEER TO PEER REQUESTED) 09/24/2023 Telephone [facility] [address] [facility] [place] [address] Waldo Bethea MD PT. would like a call from her Provider 09/08/2023 10:20 AM SENIOR DOT NET DEVELOPER Office Visit [facility] [address] [place] [address] Waldo Bethea MD Procedure (L4-5 ILESI) 09/04/2023 Telephone [facility] [address] [facility] [place] [address] Waldo Bethea MD Prior Authorization (LUMBAR SANJUANITA - PEER to PEER NEEDED) 08/31/2023 Telephone [facility] [address] [facility] [place] [address] Vaishali Baeza MD Prior Authorization (STEROID INJECTION) 08/27/2023 8:40 AM SENIOR DOT NET DEVELOPER Office Visit [facility] [address] [facility] [place] [address] Vaishali Baeza MD Throat Problem (Cancelled her [...] History Relation Name Comments Heart Disease Father [place] Other Mother Alzheimers Other Sister 3 fibromyalgia, [...] Sex Assigned at Female 08/03/2020 9:53 AM SENIOR DOT NET DEVELOPER Gender Identity Female 08/03/2020 9:53 AM SENIOR DOT NET DEVELOPER Sexual Orientation Not on file Obstetrics History [...] (7 lb) M Vag Zari ng Jacques 1968 1.87 kg (4 lb 2 oz) M Vag Zari ng Frank Last Filed Vital Signs Vital Sign Reading Time Taken Comments Blood Pressure 186/74 11/24/2023 2:00 PM CDT Pulse 82 11/24/2023 2:00 PM CDT Temperature 36.1 ??C (97 ??F) 11/11/2023 2:17 PM CDT Respiratory Rate 16 06/11/2023 2:34 PM CDT Oxygen Saturation 96% 11/24/2023 2:00 PM CDT Inhaled Oxygen Concentration - - Weight 70.5 kg (155 lb 6.4 oz) 08/27/2023 9:04 A M SENIOR DOT NET DEVELOPER Height 156.5 cm (5' 1.61) 03/05/2023 10:40 [...] Procedure Name Priority Date/Time Associated Diagnosis Comments MR SPINE LUMBAR WO Routine 11/19/2023 12 :00 AM CDT 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 Lumbar radiculopathy DDD (degenerative disc disease), lumbar AMB EPIDURAL STEROID INJECTION Routine 10/20/2023 7:56 AM CDT 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 Lumbar radiculopathy NH NJX AA&/STRD TFRML EPI LUMBAR/SACRAL 1 LEVEL Routine 10/20/2023 12:00 AM CDT 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 Lumbar radiculopathy AMB EPIDURAL STEROID INJECTION Routine 09/08/2023 8:06 AM SENIOR DOT NET DEVELOPER 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 DDD (degenerative disc disease), lumbar XR DXA BONE DENSITY 2 SITES AXIAL Routine 04/05/2019 11:28 AM CDT Menopause from Last 3 Months or Most Recently Relevant to Health Maintenance Results * MR SPINE LUMBAR WO (11/19/2023 12:00 AM CDT) Anatomical Region Laterality Modality Spine, LUMBAR SPINE Magnetic Res onance Waldo Bethea MD MR * NH NJX AA&/STRD TFRML EPI LUMBAR/SACRAL 1 LEVEL (10/20/2023 12:00 AM CDT) Waldo Bethea MD PB - NERVOUS SYSTE M SERVICES * (ABNORMAL) XR DXA BONE DENSITY 2 SITES AXIAL (04/05/2019 11:28 AM CDT) Anatomical Region Laterality Modality Spine, HIPS, HIPL, HIPR Other Narrative 04/11/2019 10:38 AM CDT Please see scanned document for results of this study. Vaishali GUADALUPE from Last 3 Months or Most Recently Relevant to Health Maintenance Advance Directives Documents on File Type Date Recorded Patient Money Order Clerk Expl anation Healthcare Directive 11/14/2014 2:43 PM UPD ATED LIVING WILL/POWER OF GREEN PIPEFITTER FOR HEALTH CARE 03/20/00, [facility], 11/14/14 Care Teams Client Development Consultant Relationship Specialty Start Date End Date Vaishali Baeza MD [address] [place] [address] PCP - General 01/09/10 Lukas Feliz MD [address] [place] [address] Surgery - Otolaryngology 06/25/12 Waldo Bethea MD [address] [place] [address] Sports Medicine 06/25/12 Isha Gamble [address] [place] [address] Consulting Physician Allergy and Immunology 05/05/14 Isiah Price MD [address] [facility] [place] [address] Ophthalmology Surgery 06/19/15
[2023-11-24 16:02] LABS: Slide Review Reflex No
[2023-11-24 16:03] LABS: Chloride* 110 mmol/L (96-114); Potassium* 4.4 mmol/L (3.6-5.1); Sodium* 139 mmol/L (135-149)
[2023-11-24 16:06] LABS: Anion Gap 3 mEq/L (7-15); Blood Urea Nitrogen* 18 mg/dL (7-30); Carbon Dioxide* 26 mmol/L (20-32); Creatinine* 0.9 mg/dL (0.5-1.5); Estimated Glomerular Filt Rate 64 ml/min; INR 0.93 (0.91-1.10)
[2023-11-24 16:07] LABS: Calcium* 9.4 mg/dL (8.4-10.6); Glucose* 114 mg/dL (60-115); Partial Thromboplastin Time* 34 Seconds (23-33)
[2023-11-24] MEDS: CLOPIDOGREL 75 MG TABLET PO (16:11)
--- NOTE | 2023-11-24 17:40 | P.IMHP_ITS ---
Hospitalist- H&P: HPI History of Present Illness Date Seen: 11/24/23 Chief complaint: CVA Narrative: Latonya Gordon is a 83 year old woman presents to the emergency department today after having 1st been seen by her primary care physician, Dr. Vaishali Arreaga. Patient notes sudden onset of left arm weakness and numbness. Unable to grasp anything with her left hand. Notes a sense of left facial numbness as well. Her primary care physician refer the patient to the emergency department for further assessment and management. Patient has a history of ocular migraine symptoms. She indicates that this past Thursday she had the onset of 1 of these episodes. Notes that with her right eye she was seeing squiggly lines. Did not think much of it other than that it did not resolve within 20-30 minutes of resting as it normally does. Later that evening her left arm and hand felt somewhat heavy and weak. She also had more back pain than usual and a sense of nausea. She had some leftover oxycodone from previous prescription and took attack couple of tablets in the back pain resolved and the left arm and hand heaviness and weakness improved but did not resolve. Because of the persistent nature of this on Thursday she eventually went to the emergency department for assessment and there was no obvious explanation after cardiac and neurologic assessment, including with CT scan of the head, CT angiogram of head and neck. Symptoms did not improve a great deal. Finally wit h the seemingly worsening nature of these symptoms this afternoon with sudden onset around 1:00 p.m. patient saw her primary care physician who then referred her to the emergency department. By the time she arrived to the emergency department this afternoon her symptoms had in great measure improved and almost resolved. Nevertheless a repeat CT scan of the head was obtained demonstrating a subacute small stroke involving the right precentral gyrus. Consultation was undertaken with stroke neurologist, Dr. Rolon. Given that patient is not able to undertake an MR scan of the brain in our institution because of limitations of anxiety, and because there are no beds available in our region for patient to be transferred to a tertiary care facility that could undertake an MR scan of the brain at this time, and because of the fact that we can now see it on the CT scan and her symptoms are improving, the stroke neurologist recommended admission to our hospital for observation and continued assessment including with ongoing telemetry, transthoracic echocardiogram, repeat ECG, lipid studies, double the dose of her rosuvastatin from 10 mg daily to 20 mg daily, initiation of clopidogrel in addition to the aspirin 81 mg that she is already taking, physical therapy and occupational therapy consultation. Patient deemed not a candidate for any interventional efforts at this time. Review of Systems Status of ROS: Reports: 10 or more systems reviewed and unremarkable except as noted in History and below Narrative: Chronic back pain. Patient had MR scan of the back last . Sees pain specialist, Dr. Marie, periodically. Does take diclofenac chronically for cervicalgia. Does not take any medications to address her intermittent ocular migraine or migraine equivalent. Has been doing well otherwise. Denies any recent acute illnesses. Denies fever s, rigors, diaphoresis. Denies dysuria, urgency, frequency, hematuria that is unusual for her. Denies diarrhea or constipation. No skin infections. No recent trauma, injury, or blood loss. Review of systems otherwise negative. Denies chest palpitations or chest fluttering. Denies dyspnea at rest, paroxysmal nocturnal dyspnea, orthopnea. Denies cough. Denies syncope or near-syncope. No further nausea or vomiting. Denies dysphagia, odynophagia. No other focal motor neurologic deficits. [facility] Medical History (Updated 11/24/23 @ 18:00 by Sean Maguire MD) Obstructive sleep apnea of adult (11/26/09) ?G47.33 - Obstructive sleep apnea (adult) (pediatric) (ICD-10) Malignant melanoma of left lower limb, including hip (12/06/21) ?C43.72 - Malignant melanoma of left lower limb, including hip (ICD-10) Osteoarthritis of left hip (12/17/12) ?M16.12 - Unilateral primary osteoarthritis, left hip (ICD-10) Personal history of allergy to antibiotic agent (05/17/21) ?Z88.1 - Allergy status to other antibiotic agents (ICD-10) 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) ?N99.3 - Prolapse of vaginal vault after hysterectomy (ICD-10) Primary insomnia (07/17/15) ?F51.01 - Primary insomnia (ICD-10) Personal history of colonic polyps (05/27/13) ?Z86.010 - Personal history of colonic polyps (ICD-10) OAB (overactive bladder) (02/14/19) ?N32.81 - Overactive bladder (ICD-10) Nocturnal polyuria (02/14/19) ?R35.81 - Nocturnal polyuria (ICD-10) Left carotid stenosis (03/19/17) ?I65.22 - Occlusion and stenosis of left carotid artery (ICD-10) Hyperlipidemia (05/17/21) ?E78.5 - Hyperlipidemia, unspecified (ICD-10) HTN (hypertension) (11/13/09) ?I10 - Essential (primary) hypertension (ICD-10) Hallux rigidus of right foot (07/07/12) ?M20.21 - Hallux rigidus, right foot (ICD-10) GERD (gastroesophageal reflux disease) (06/29/09) ?K21.9 - Gastro-esophageal reflux disease without esophagitis (ICD-10) Fibromyalgia (05/17/21) ?M79.7 - Fibromyalgia (ICD-10) DDD (degenerative disc disease), cervical (10/27/17) ?M50.30 - Other cervical disc degeneration, unspecified cervical region (ICD- 10) Daytime somnolence (02/14/19) ?R40.0 - Somnolence (ICD-10) Cervicalgia ?M54.2 - Cervicalgia (ICD-10) Bladder prolapse, female, acquired (06/19/15) ?N81.10 - Cystocele, unspecified (ICD-10) Arthritis of carpometacarpal (CMC) joints of both thumbs (02/06/17) ?M18.0 - Bilateral primary osteoarthritis of first carpometacarpal joints (ICD-10) Allergic rhinitis, cause unspecified ?J30.9 - Allergic rhinitis, unspecified (ICD-10) Adverse reaction to sulfa antibiotic (11/03/13) ?T37.0X5A - Adverse effect of sulfonamides, initial encounter (ICD-10) Surgical History (Updated 11/24/23 @ 17:38 by Sean Maguire MD) Status post intraocular lens implant (04/10/21) ?Z96.1 - Presence of intraocular lens (ICD-10) Status post left hip replacement (05/17/21) ?Z96.642 - Presence of left artificial hip joint (ICD-10) Family History (Updated 11/24/23 @ 17:39 by Sean Maguire MD) Son Colon cancer Sister Diabetes High blood pressure Father Heart disease Mother Alzheimers disease Social History Smoking Status: Never smoker Do you use any of these nicotine containing products: None Second hand tobacco smoke exposure: No How often do you have a drink containing alcohol: never AUDIT-C Alcohol total score: 0 Non-prescribed substance use: denies use service: No Meds Home Medications and Allergies Home Medications Medication Instructions Recorded Confirmed Type albuterol sulfate 90 mcg/actuation 1 - 2 puff inhalation Q4H PRN 01/03/23 11/24/23 History aerosol inhaler dyspnea estradiol 10 mcg vaginal tablet 10 mcg vaginal 3XW 01/03/23 11/24/23 History (Yuvafem) losartan 50 mg tablet 50 mg PO DAILY 01/03/23 11/24/23 History rosuvastatin 10 mg tablet 10 mg PO QPM 01/03/23 11/24/23 History aspirin 81 mg capsule 81 mg PO DAILY 11/21/23 11/24/23 History cetirizine 10 mg tablet (24Hour 10 mg PO DAILY PRN 11/21/23 11/24/23 History Allergy) coQ10 (ubiquinol) 100 mg capsule 100 mg PO DAILY 11/21/23 11/24/23 History (Qunol Eduardo CoQ10) diclofenac sodium 75 mg 75 mg PO DAILY 11/21/23 11/24/23 History tablet,delayed release oxycodone 5 mg tablet 5 mg PO Q6H PRN pain 11/21/23 11/24/23 History Lactobacillus rhamnosus GG 10 1 cap PO DAILY 11/24/23 11/24/23 History billion cell capsule (Culturelle) acetaminophen 500 mg tablet 1,000 mg PO BID 11/24/23 11/24/23 History calcium carbonate 200 mg-vitamin 2 cap PO DAILY 11/24/23 11/24/23 History D3 10 mcg (400 unit) capsule cholecalciferol (vitamin D3) 50 4,000 unit PO DAILY 11/24/23 11/24/23 History mcg (2,000 unit) capsule Allergies Allergy/AdvReac Type Severity Reaction Status Date / Time aluminum Allergy Verified 11/21/23 18:15 cefuroxime [From Ceftin] Allergy Verified 11/21/23 18:15 diphtheria toxoid,fluid Allergy Verified 11/21/23 18:15 doxycycline Allergy Verified 11/21/23 18:15 gabapentin Allergy Verified 11/21/23 18:15 grass pollen Allergy Verified 11/21/23 18:15 lisinopril Allergy Verified 11/21/23 18:15 mold Allergy Verified 11/21/23 18:15 Penicillins Allergy Verified 11/21/23 18:15 pneumococcal 7-valent Allergy Verified 11/21/23 18:15 conjugate to [From Prevnar] pneumococcal vaccine Allergy Verified 11/21/23 18:15 Sulfa (Sulfonamide Allergy Verified 11/21/23 18:15 Antibiotics) Exam Narrative: Exam Narrative: I 1st examined her in the emergency department. Secondly I examine her in her hospital room. Patient appears comfortable and in no acute distress. Vision and hearing are grossly normal. Appropriately moderately anxious. Alert and oriented to self, place, time, situation. Friendly, articulate, cooperative. Cranial nerves 3-12 grossly intact. Upper lower extremity strength testing and rapid alternating movements are symmetric at this time. Subjectively patient states that she still feels a sense of weakness and numbness in left hand although it is not apparent. Independent in transfer, station, and gait. Lungs clear to auscultation. Heart tones with regular rhythm. Abdomen benign. No edema. Const: Vital Signs, click to edit/add: Vital Signs - 24 hr 11/24/23 15:01 11/24/23 15:02 11/24/23 15:15 Temperature Pulse Rate 73 72 71 Pulse Rate [Right Pulse Oximeter] Respiratory Rate Blood Pressure 154/70 H Blood Pressure [Ri ght Upper Arm] Pulse Oximetry 94 94 95 Oxygen Delivery Me thod 11/24/23 15:19 11/24/23 15:23 11/24/23 15:30 Temperature 97.3 F L Pulse Rate 68 67 Pulse Rate [Right Pulse Oximeter] 75 Respiratory Rate 18 Blood Pressure 147/74 H Blood Pressure [Ri ght Upper Arm] 154/70 H Pulse Oximetry 96 97 95 Oxygen Delivery Me thod Room Air 11/24/23 15:36 11/24/23 15:45 11/24/23 15:47 Temperature Pulse Rate 67 63 64 Pulse Rate [Right Pulse Oximeter] Respiratory Rate Blood Pressure 147/93 H 153/71 H Blood Pressure [Ri ght Upper Arm] Pulse Oximetry 95 93 94 Oxygen Delivery Me thod 11/24/23 15:48 11/24/23 15:54 11/24/23 16:03 Temperature Pulse Rate 63 Pulse Rate [Right Pulse Oximeter] Respiratory Rate Blood Pressure 165/75 H Blood Pressure [Ri ght Upper Arm] Pulse Oximetry 97 96 Oxygen Delivery Me thod 11/24/23 16:08 11/24/23 16:15 11/24/23 16:17 Temperature Pulse Rate 69 69 69 Pulse Rate [Right Pulse Oximeter] Respiratory Rate Blood Pressure 172/86 H Blood Pressure [Ri ght Upper Arm] Pulse Oximetry 94 97 96 Oxygen Delivery Me thod 11/24/23 16:32 Temperature Pulse Rate Pulse Rate [Right Pulse Oximeter] Respiratory Rate Blood Pressure 139/113 H Blood Pressure [Ri ght Upper Arm] Pulse Oximetry [facility] - H&P: Result Labs Labs: Short CBC 11/24/23 Range/Units 15:30 WBC 5.66 (4.50-11.00) K/uL Hgb 12.8 (12.0-16.0) gm/dL Hct 40.2 (33.0-51.0) % Plt Count 284 (140-440) K/uL BMP 11/24/23 15:30 Sodium 139 Potassium 4.4 Chloride 110 Carbon Dioxide 26 BUN 18 Creatinine 0.9 Glucose 114 Calcium 9.4 ECG Attestation: I personally reviewed and interpreted this ECG as follows: ECG interpretation date: 11/24/23 Prior ECG tracings: available for review Interpretation: Normal sinus rhythm. No dysrhythmia. No evidence of ischemia or infarction. Imaging CT scan - head: Attestation: I have reviewed the pertinent imaging results. Radiologist's impression: Findings consistent with a small acute cortical infarct involving the right precentral gyrus. Assessment and Plan Assessment and plan (1) Ischemic cerebrovascular accident (CVA): Problem comment: -CT scan of head 11/24/2023: Findings consistent with a small acute cortical infarct involving the right precentral gyrus. This was not present on the CT scan previously obtained on 11/21/2023, or the CT angiogram of the head obtained on 11/21/2023. - etiology of this stroke is unclear: Cerebrovascular disease, verses atrial fibrillation, versus secondary to complication from migraine equivalent, versus complication from use of NSAID, diclofenac, which is known to increased risk of stroke. - admit for observation. Telemetry. Echo. Lipid panel. PT consultation. OT consultation. - continue aspirin 81 mg daily and start clopidogrel 75 mg daily per neurologist. - double dose of rosuvastatin for now, was on 10 mg daily and increase to 20 mg daily. - stop the diclofenac. Start schedule acetaminophen 650 mg q.i.d. and p.r.n. oxycodone for her chronic cervicalgia. Consider restarting diclofenac at a later date. - consider neurology consultation for medication regimen to try to reduce frequency and severity of migraine equivalent episodes. Status: Acute (2) Left arm weakness: Problem comment: - improving by the time she presents to the emergency department and when she is admitted to the hospital. - OT consultation. PT consultation. Status: Acute Plan 1. Reviewed impression with patient and her . 2. Answered their questions to their satisfaction. 3. Patient and her are agreeable to above stated plans and rec ommendations. 4. Will need outpatient neurology consultation and follow-up with her primary care physician. Total Time Spent Total Time Spent: 60 minutes
[2023-11-24] MEDS: ACETAMINOPHEN 325 MG TABLET 650 MG PO (17:42)
[2023-11-24] MEDS: ROSUVASTATIN CALCIUM 10 MG TABLET PO (20:44)
[2023-11-24] MEDS: OXYCODONE 5 MG TABLET PO (20:44)
--- NOTE | 2023-11-24 23:19 | PC.NURSE ---
End of Shift: Patient admitted to 258. Pleasant and cooperative. Alert and oriented. Up to chair and bathroom with SBA. Able to lift left arm but grasp remains weaker than right. Tele showing NSR. C/o chronic pain in neck and back 3-11/17 and PRN Oxycodone given x2. Tolerating regular diet with no nausea.
[2023-11-25 00:13] VITALS: BP 139/72; PULSE 86; PULSE 92; RESP 16; TEMP 36.5; O2SAT 92
[2023-11-25] MEDS: ACETAMINOPHEN 325 MG TABLET 650 MG PO ×3 (00:35→13:05)
[2023-11-25 03:00] VITALS: BP 145/62; PULSE 82; RESP 16; TEMP 36.4; O2SAT 95
[2023-11-25 06:27] LABS: Hematocrit 38.9 % (33.0-51.0); Hemoglobin* 12.4 gm/dL (12.0-16.0); Mean Corpuscular HGB Conc 32 gm/dL (32-36); Mean Corpuscular Hemoglobin 31 pg (26-34); Mean Corpuscular Volume 97 fL (80-100); Platelet Count* 261 K/uL (140-440)
[2023-11-25 06:31] LABS: Slide Review Reflex No
[2023-11-25 06:41] LABS: Chloride* 112 mmol/L (96-114); Potassium* 4.1 mmol/L (3.6-5.1); Sodium* 139 mmol/L (135-149)
[2023-11-25 06:44] LABS: Anion Gap 5 mEq/L (7-15); Blood Urea Nitrogen* 19 mg/dL (7-30); Carbon Dioxide* 22 mmol/L (20-32); Cholesterol* 172 mg/dL (90-199); Creatinine* 0.8 mg/dL (0.5-1.5); Estimated Glomerular Filt Rate 74 ml/min
[2023-11-25 06:45] LABS: Calcium* 8.8 mg/dL (8.4-10.6); Glucose* 105 mg/dL (60-115); HDL Cholesterol* 49 mg/dL (>=50); LDL Cholesterol Calculated 96 mg/dL (<100); Magnesium* 2.1 mg/dL (1.5-2.6); Phosphorus* 3.8 mg/dL (2.5-4.5); Triglycerides* 135 mg/dL (40-149)
--- NOTE | 2023-11-25 06:46 | PC.NURSE ---
Pt alert and oriented x3. Afebrile. Pt reports 4/10 neck pain, managed with scheduled medications. Pt?s left sided weakness is improving, pt is able to move left arm and battery filler with her hand but still has weakness in strength of battery filler and difficulties with finger movements. Pt is up SBA to bathroom. Pt slept intermittently throughout night. ?
[2023-11-25 06:53] LABS: NT Pro B Type NatriureticPept* 99 pg/mL
[2023-11-25 07:00] VITALS: O2SAT 94
[2023-11-25 07:30] VITALS: BP 146/75; PULSE 76; RESP 18; TEMP 36.3; O2SAT 94
[2023-11-25 07:45] VITALS: PULSE 78
[2023-11-25] MEDS: ASPIRIN 81 MG TABLET EC PO (08:59)
[2023-11-25] MEDS: LOSARTAN POTASSIUM 50 MG TABLET PO (08:59)
[2023-11-25] MEDS: CLOPIDOGREL 75 MG TABLET PO (08:59)
[2023-11-25 09:20] VITALS: BMI 28.9
[2023-11-25 11:00] VITALS: BP 148/72; PULSE 72; RESP 18; TEMP 36.6; O2SAT 94
--- NOTE | 2023-11-25 13:19 | P.DS_ITS ---
DS: Providers Provider Date Seen: 11/25/23 Date of admission: 11/24/23 16:36 Primary care physician: Vaishali Baeza MD Admitting Clinician: Sean Maguire MD Consults: 11/24/23 16:46 Consult to Nutrition [CONS] Routine Comment: Reason for consult:: Miscellaneous Comment: new stroke Consult to Physical Therapy [CONS] Routine Comment: Reason(s) for PT Consult:: Evaluate and Treat Any Restrictions?:: No Restrictions Comment: acute R cortical stroke with L hand weakness/numbness 11/24/23 16:50 Consult to Occupational Therapy [CONS] Routine Comment: Reason(s) for OT Consult:: Evaluate and Treat Any Restrictions?:: No Restrictions Comment: acute R cortical stroke with L hand weakness/numbness Attending Physician on discharge: Johana Cabello [facility] Date of Discharge: 11/25/23 DS: Diagnosis Discharge Diagnosis (1) Ischemic cerebrovascular accident (CVA): Status: Acute Problem details: CT scan of head 11/24/2023: Findings consistent with a small acute cortical infarct involving the right precentral gyrus. This was not present on the CT scan previously obtained on 11/21/2023, or the CT angiogram of the head obtained on 11/21/2023. Etiology of this stroke is unclear: Cerebrovascular disease, verses atrial fibrillation (EKG shows NSR), versus secondary to complication from migraine equivalent, versus complication from use of NSAID, diclofenac, which is known to increased risk of stroke. Admitted for overnight observation. Telemetry unremarkable. Echo shows normal LV size, normal wall thickness, normal global systolic function EF 60-65%. Grade 2 pattern of LV diastolic filling. Aortic valve sclerotic. Zio monitor 30 days. Lipid panel reviewed. Home dose Crestor increased to 20 mg daily. PT and OT consulted, recommending ongoing outpatient therapy. Will need outpatient open MRI as unable to tolerate diagnostic exam at this facility. Started on clopidogrel 75 mg daily x 21 days per telehealth neurologist. Also recommending stopping aspirin as patient prefers to continue on diclofenac for chronic pain. (2) Left arm weakness: Status: Acute Problem details: C/w right sided CVA. Improving prior to d/c. Continue outpatient PT/OT (3) Cervicalgia: Status: Chronic Problem details: With h/o ocular migraines Okay to continue diclofenac per neurology, oxycodone, Tylenol p.r.n. Consider outpatient neurology consultation for medication regimen to try to reduce frequency and severity of migraine equivalent episode (4) HTN (hypertension): Status: Chronic Problem details: Permissive hypertension allowed during hospital course. Continue losartan upon discharge. (5) Hyperlipidemia: Status: Chronic Problem details: Lipid panel reviewed. Home dose Crestor increased to 20 mg daily. DS: Summary Hospital Course Hospital Course: [age] year old female past medical history significant for hyperlipidemia, hypertension, chronic pain, GERD, IBS was admitted to the medical floor for overnight observation following right-sided CVA. Course of care and details as noted above. Symptoms continue to improve overnight. Evaluated by PT/OT the following morning, recommending ongoing outpatient therapies. Echocardiogram completed. Patient is discharged with a Zio monitor for 30 days, to be followed up by PCP. Plavix times 21 days. No aspirin, okay for diclofenac per Neurology. Outpatient follow-up with PCP, Neurology. NO DRIVING Will need outpatient open MRI, PCP to follow. Remainder of chronic medical comorbidities were monitored and managed with home medications. Status at Discharge Overall status at discharge: patient is progressing back to baseline Time Spent with Patient Time attestation: Total time spent providing and/or coordinating discharge services: Time spent: Greater than 30 minutes Exam Narrative: Exam Narrative: PHYSICAL EXAM General: Pleasant, conversant, NAD Cardiovascular: RRR Pulmonary: No dyspnea Neurological: Alert, answering questions appropriately. No facial droop. LUE 4/5, RUE 5/5, AROMI. Skin: Warm, dry. Const: Vital Signs, click to edit/add: Vital Signs - 24 hr 11/24/23 15:01 11/24/23 15:02 11/24/23 15:15 Temperature Pulse Rate 73 72 71 Pulse Rate [Left A pical] Pulse Rate [Right Pulse Oximeter] Respiratory Rate Blood Pressure 154/70 H Blood Pressure [Le ft Arm] Blood Pressure [Ri ght Arm] Blood Pressure [Ri ght Upper Arm] Pulse Oximetry 94 94 95 Oxygen Delivery Me thod 11/24/23 15:19 11/24/23 15:23 11/24/23 15:30 Temperature 97.3 F L Pulse Rate 68 67 Pulse Rate [Left A pical] Pulse Rate [Right Pulse Oximeter] 75 Respiratory Rate 18 Blood Pressure 147/74 H Blood Pressure [Le ft Arm] Blood Pressure [Ri ght Arm] Blood Pressure [Ri ght Upper Arm] 154/70 H Pulse Oximetry 96 97 95 Oxygen Delivery Me thod Room Air 11/24/23 15:36 11/24/23 15:45 11/24/23 15:47 Temperature Pulse Rate 67 63 64 Pulse Rate [Left A pical] Pulse Rate [Right Pulse Oximeter] Respiratory Rate Blood Pressure 147/93 H 153/71 H Blood Pressure [Le ft Arm] Blood Pressure [Ri ght Arm] Blood Pressure [Ri ght Upper Arm] Pulse Oximetry 95 93 94 Oxygen Delivery Me thod 11/24/23 15:48 11/24/23 15:54 11/24/23 16:03 Temperature Pulse Rate 63 Pulse Rate [Left A pical] Pulse Rate [Right Pulse Oximeter] Respiratory Rate Blood Pressure 165/75 H Blood Pressure [Le ft Arm] Blood Pressure [Ri ght Arm] Blood Pressure [Ri ght Upper Arm] Pulse Oximetry 97 96 Oxygen Delivery Me thod 11/24/23 16:08 11/24/23 16:15 11/24/23 16:17 Temperature Pulse Rate 69 69 69 Pulse Rate [Left A pical] Pulse Rate [Right Pulse Oximeter] Respiratory Rate Blood Pressure 172/86 H Blood Pressure [Le ft Arm] Blood Pressure [Ri ght Arm] Blood Pressure [Ri ght Upper Arm] Pulse Oximetry 94 97 96 Oxygen Delivery Me thod 11/24/23 16:32 11/24/23 16:40 11/24/23 18:20 Temperature 97.6 F Pulse Rate 86 Pulse Rate [Left A pical] 69 Pulse Rate [Right Pulse Oximeter] Respiratory Rate 16 Blood Pressure 139/113 H Blood Pressure [Le ft Arm] Blood Pressure [Ri ght Arm] 152/72 H Blood Pressure [Ri ght Upper Arm] Pulse Oximetry 95 Oxygen Delivery Me thod Room Air 11/24/23 19:00 11/24/23 20:28 11/25/23 00:13 Temperature 97.8 F 97.7 F Pulse Rate Pulse Rate [Left A pical] 70 86 Pulse Rate [Right Pulse Oximeter] Respiratory Rate 16 16 16 Blood Pressure Blood Pressure [Le ft Arm] Blood Pressure [Ri ght Arm] 137/55 L 139/72 Blood Pressure [Ri ght Upper Arm] Pulse Oximetry 97 97 92 Oxygen Delivery Me thod Room Air Room Air Room Air 11/25/23 00:13 11/25/23 00:13 11/25/23 03:00 Temperature 97.6 F Pulse Rate 92 Pulse Rate [Left A pical] 82 Pulse Rate [Right Pulse Oximeter] Respiratory Rate 16 16 Blood Pressure Blood Pressure [Le ft Arm] 145/62 H Blood Pressure [Ri ght Arm] Blood Pressure [Ri ght Upper Arm] Pulse Oximetry 92 95 Oxygen Delivery Ut thod Room Air Room Air 11/25/23 07:00 11/25/23 07:30 11/25/23 07:45 Temperature 97.4 F L Pulse Rate 78 Pulse Rate [Left A pical] 76 Pulse Rate [Right Pulse Oximeter] Respiratory Rate 18 Blood Pressure Blood Pressure [Le ft Arm] 146/75 H Blood Pressure [Ri ght Arm] Blood Pressure [Ri ght Upper Arm] Pulse Oximetry 94 94 Oxygen Delivery Ut thod Room Air Room Air 11/25/23 11:00 Temperature 97.9 F Pulse Rate Pulse Rate [Left A pical] 72 Pulse Rate [Right Pulse Oximeter] Respiratory Rate 18 Blood Pressure Blood Pressure [Le ft Arm] 148/72 H Blood Pressure [Ri ght Arm] Blood Pressure [Ri ght Upper Arm] Pulse Oximetry 94 Oxygen Delivery Me thod Room Air DS: Data Data Completed and Pending Labs on day of discharge: Labs from last 24 hours 11/25/23 11/24/23 05:54 15:30 WBC 5.20 5.66 RBC 4.00 4.14 Hgb 12.4 12.8 Hct 38.9 40.2 MCV 97 97 MCH 31 31 MCHC 32 32 RDW Coeff of Edis 13.3 Plt Count 261 284 Neut % (Auto) 61.0 Lymph % (Auto) 28.3 Cannon % (Auto) 7.1 Eos % (Auto) 2.7 Baso % (Auto) 0.7 Neut # (Auto) 3.46 Lymph # (Auto) 1.60 Cannon # (Auto) 0.40 Eos # (Auto) 0.15 Baso # (Auto) 0.04 Abs Immat Gran (auto) 0.01 Imm/Tot Granulo (auto) 0.2 INR 0.93 APTT 34 H Sodium 139 139 Potassium 4.1 4.4 Chloride 112 110 Carbon Dioxide 22 26 Anion Gap 5 L 3 L BUN 19 18 Creatinine 0.8 0.9 Estimated Creat Clear 34.30 34.30 Estimated GFR 74 64 Glucose 105 114 Calcium 8.8 9.4 Phosphorus 3.8 Magnesium 2.1 NT-Pro-B Natriuret Pep 99 Triglycerides 135 Cholesterol 172 LDL Cholesterol, Calc 96 HDL Cholesterol 49 L TSH 4.[address] scan - head: Attestation: I have reviewed the pertinent imaging results. Radiologist's impression: CT of the head without intravenous contrast. Please note that all CT scans at this facility use dose modulation, iterative reconstruction, and/or weight-based dosing when appropriate to reduce radiation dose to as low as reasonably achievable. FINDINGS: Loss of emerson-white definition involving the right precentral gyrus (5; 46) with subtle positive mass effect (mild sulcal effacement) consistent with an acute cortical infarct. Unchanged multifocal chronic cortical infarcts with loss of emerson-white definition involving the contralateral left precentral and postcentral gyri (5; 50, 47) and mesial left parietal cortex near the vertex (5; 50). Otherwise, note is again made of generalized cerebral atrophy. No intracranial hemorrhage, mass, mass effect or hydrocephalus. Rightward deviated nasal septum. Bilateral lens implants. IMPRESSION: Findings consistent with a small acute cortical infarct involving the right precentral gyrus. 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 No intracranial hemorrhage. Incidental findings described above. Discharge Plan Discharge Disposition: Home, Self-Care Date of Admission: 11/24/23 16:36 Attending Provider on Discharge: Johana Cabello Primary Care Provider: Vaishali Baeza Condition: Improved Anticipated Discharge Date/Time: 11/25/23 13:08 Discharge Medications: New clopidogrel 75 mg Tablet 75 mg PO DAILY 20 Days Qty: 20 0RF rosuvastatin 20 mg tablet 20 mg PO HS Qty: 30 0RF Continued acetaminophen 500 mg tablet 1,000 mg PO BID Rx Instructions: PLUS AN ADDITIONAL DOSE IN THE MIDDLE OF THE DAY NEEDED calcium carbonate-vitamin D3 200 mg-10 mcg (400 unit) capsule 2 cap PO DAILY cholecalciferol (vitamin D3) 50 mcg (2,000 unit) capsule 4,000 unit PO DAILY Culturelle 10 billion cell capsule 1 cap PO DAILY losartan 50 mg tablet 50 mg PO DAILY albuterol sulfate 90 mcg/actuation HFA aerosol inhaler 1 - 2 puff INHALATION Q4H PRN (Reason: dyspnea) estradiol [Yuvafem] 10 mcg tablet 10 mcg vaginal 3XW diclofenac sodium 75 mg tablet,delayed release (DR/EC) 75 mg PO DAILY oxycodone 5 mg tablet 5 mg PO Q6H PRN (Reason: pain) cetirizine [24Hour Allergy] 10 mg tablet 10 mg PO DAILY PRN coQ10 (ubiquinol) [Qunol Eduardo CoQ10] 100 mg capsule 100 mg PO DAILY Discontinued rosuvastatin 10 mg tablet 10 mg PO QPM aspirin 81 mg capsule 81 mg PO DAILY Discharge Orders: Discharge Order (Routine); Ordered 11/25/23 Ordered By: Johana Cabello Patient Education: Stroke (GEN) Additional Instructions: Outpatient open MRI brain Outpatient PT/OT You have been started on plavix and will take this for 21 days. Your rouvastatin has been increased to 20mg daily. Do not take aspirin as you are taking diclofenac. You will wear the holter monitor for 30 days and follow up with your PCP for this. NO DRIVING Activity Level: No Restrictions Activity Detail: Outpatient PT/OT NO DRIVING Discharge Diet: Regular Follow Up Appointments: Vaishali Baeza MD [Primary Care Provider] - 11/26/23 1:25 pm (Post hospital follow up at [facility] schedule brain MRI DANISH) Forms: [employer]) Info Instructions
--- NOTE | 2023-11-25 16:00 | PC.NURSE ---
Patient stable throughout shift. Weakness to L) hand noted but improving. Pt had telehealth neuro follow-up0 today. Patient continues to receive PT/OT therapy services. Patient discharged home with family today. Follow-up appointment scheduled with PCP tomorrow, 11/26/23 and patient to receive holter monitor. Patient set up with outpatient PT/OT services. Discharged education provided to patient and family members. Patient stable and asymptomatic at MA from facility.
== END 2023-11-25 15:26 | disposition home or self-care (01) ==
LOC: ED 15:55 → MEDSURG 16:36
PROVIDERS: Admitting Provider Internal Medicine; Emergency Provider Family Medicine; PCP Family Medicine; Visit Provider Internal Medicine
DX: I63.9 Cerebral infarction, unspecified (principal); R29.898 Other symptoms and signs involving the musculoskeletal system; M54.2 Cervicalgia; G89.29 Other chronic pain; M54.9 Dorsalgia, unspecified; I10 Essential (primary) hypertension; E78.5 Hyperlipidemia, unspecified; C43.72 Malignant melanoma of left lower limb, including hip; M16.12 Unilateral primary osteoarthritis, left hip; N99.3 Prolapse of vaginal vault after hysterectomy; K21.9 Gastro-esophageal reflux disease without esophagitis; G47.33 Obstructive sleep apnea (adult) (pediatric); M79.7 Fibromyalgia; Z88.1 Allergy status to other antibiotic agents; Z96.1 Presence of intraocular lens; Z86.010 Personal history of colon polyps; Z96.642 Presence of left artificial hip joint; Z85.820 Personal history of malignant melanoma of skin; Z86.69 Personal history of other diseases of the nervous system and sense organs
CPT/HCPCS: 36415; 70450; 80048; 80061; 83735; 83880; 84100; 84443; 85025; 85027; 85610; 85730; 93005; 93306; 94761; 97112; 97116; 97161; 97165; 97535; 99284; 99285; 99291; G0378; A9270

== ENCOUNTER 2023-12-03 12:55 | Outpatient (RCR) | payer MEDICARE, SELFPAY | END 2024-04-01 23:59 | disposition home or self-care (01) | PROVIDERS: PCP Family Medicine; Visit Provider Internal Medicine | DX: I63.9 Cerebral infarction, unspecified (principal); G81.94 Hemiplegia, unspecified affecting left nondominant side; Z51.89 Encounter for other specified aftercare | CPT/HCPCS: 97110; 97165; X5282 ==

== ENCOUNTER 2024-02-25 13:00 | Outpatient (RCR) | payer MEDICARE, SELFPAY | END 2024-04-20 14:27 | disposition home or self-care (01) | PROVIDERS: PCP Family Medicine; Visit Provider Internal Medicine | DX: I63.9 Cerebral infarction, unspecified (principal); Z51.89 Encounter for other specified aftercare | CPT/HCPCS: 97110; 97116; 97163; 97165; 97530 ==

== ENCOUNTER 2024-02-26 15:27 | Emergency (ER) | payer MEDICARE, SELFPAY ==
[2024-02-26 15:34] VITALS: BP 150/78; PULSE 81; RESP 18; TEMP 36.2; O2SAT 97; BMI 27.4
--- NOTE | 2024-02-26 15:50 | CRLHL7_ITS ---
For Patients: As a result of the Cures Act, medical imaging exams and procedure reports are released immediately into your electronic medical record. You may view this report before your referring provider. If you have questions, please contact your health care provider. INDICATION: Fall. TECHNIQUE: Left shoulder three views. COMPARISON: None. FINDINGS: No acute fracture or dislocation. Degenerative changes of the acromioclavicular and glenohumeral joints. Soft tissues as imaged are unremarkable. IMPRESSION: No acute osseous abnormality. Dictated by Stanley Luevano MD @ 02/26/2024 5:29:29 PM (Electronically Signed)
--- NOTE | 2024-02-26 15:53 | CRLHL7_ITS ---
For Patients: As a result of the Cures Act, medical imaging exams and procedure reports are released immediately into your electronic medical record. You may view this report before your referring provider. If you have questions, please contact your health care provider. Indication: Fall, history of stroke. Technique: Noncontrast CT of the head with multiplanar reconstruction utilizing bone and soft tissue algorithms. Comparison: CT head dated 11/24/2023. Findings: No acute intracranial hemorrhage. Multiple foci of encephalomalacia involving the right precentral gyrus and left pre and postcentral gyri. Similar mild diffuse parenchymal volume loss. No ventricular obstruction. No abnormal extra-axial fluid collection. Left frontal scalp hematoma. No underlying calvarial fracture. Bilateral pseudophakia. The paranasal sinuses and mastoid air cells are clear. Impression: 1. No acute intracranial hemorrhage. 2. Left frontal scalp hematoma. No underlying calvarial fracture. 3. Multifocal encephalomalacia involving the right precentral gyrus and left pre and postcentral gyri, consistent with sequela of prior infarcts. Please note that all CT scans at this facility use dose modulation, iterative reconstruction, and/or weight-based dosing when appropriate to reduce radiation dose to as low as reasonably achievable. Dictated by Angel Bose MD @ 02/26/2024 5:19:04 PM (Electronically Signed)
--- NOTE | 2024-02-26 15:53 | ED_ITS ---
HPI - Fall General Chief Complaint: Fall/Minor Trauma Stated Complaint: fall - head laceration Time Seen by Provider: 02/26/24 15:29 History of Present Illness HPI Narrative: This 84-year-old female comes in for evaluation of injuries from a fall that occurred just prior to arrival. She was going up some stairs and fell hitting the left side of her head and her left shoulder. She did not have loss of consciousness. She has a large hematoma on the left temporal region of her head with some ongoing bleeding. She is on anticoagulants and has history of a stroke. She also complains of pain in her left shoulder. She was able to get up with help and was able to ambulate normally. Related Data Home Medications ?Medication ?Instructions ?Recorded ?Confirmed albuterol sulfate 90 mcg/actuation 1 - 2 puff inhalation Q4H PRN 01/03/23 02/26/24 aerosol inhaler dyspnea estradiol 10 mcg vaginal tablet 10 mcg vaginal 3XW 01/03/23 02/26/24 (Yuvafem) losartan 50 mg tablet 50 mg PO DAILY 01/03/23 02/26/24 cetirizine 10 mg tablet (24Hour 10 mg PO DAILY PRN 11/21/23 02/26/24 Allergy) coQ10 (ubiquinol) 100 mg capsule 100 mg PO DAILY 11/21/23 02/26/24 (Qunol Eduardo CoQ10) diclofenac sodium 75 mg 75 mg PO DAILY 11/21/23 02/26/24 tablet,delayed release oxycodone 5 mg tablet 5 mg PO Q6H PRN pain 11/21/23 02/26/24 Lactobacillus rhamnosus GG 10 1 cap PO DAILY 11/24/23 02/26/24 billion cell capsule (Culturelle) acetaminophen 500 mg tablet 1,000 mg PO BID 11/24/23 02/26/24 calcium carbonate 200 mg-vitamin 2 cap PO DAILY 11/24/23 02/26/24 D3 10 mcg (400 unit) capsule cholecalciferol (vitamin D3) 50 4,000 unit PO DAILY 11/24/23 02/26/24 mcg (2,000 unit) capsule rosuvastatin 10 mg tablet 10 mg PO QPM 02/26/24 02/26/24 ticagrelor 90 mg tablet (Brilinta) 90 mg PO BID 02/26/24 02/26/24 Previous Rx's ?Medication ?Instructions ?Recorded clopidogrel 75 mg tablet 75 mg PO DAILY 20 days #20 tabs 11/25/23 rosuvastatin 20 mg tablet 20 mg PO HS #30 tabs 11/25/23 oxycodone 5 mg capsule 5 mg PO Q6H PRN pain #14 caps 02/26/24 Allergies Allergy/AdvReac Type Severity Reaction Status Date / Time aluminum Allergy Verified 02/26/24 15:40 cefuroxime [From Ceftin] Allergy Verified 02/26/24 15:40 diphtheria toxoid,fluid Allergy Verified 02/26/24 15:40 doxycycline Allergy Verified 02/26/24 15:40 gabapentin Allergy Verified 02/26/24 15:40 grass pollen Allergy Verified 02/26/24 15:40 lisinopril Allergy Verified 02/26/24 15:40 mold Allergy Verified 02/26/24 15:40 Penicillins Allergy Verified 02/26/24 15:40 pneumococcal 7-valent Allergy Verified 02/26/24 15:40 conjugate to [From Prevnar] pneumococcal vaccine Allergy Verified 02/26/24 15:40 Sulfa (Sulfonamide Allergy Verified 02/26/24 15:40 Antibiotics) Review of Systems Status of ROS: Reports: 10 or more systems reviewed and unremarkable except as noted in History and below Narrative: Constitutional: No fevers, no weight gain or loss. Eyes: No discharge. No vision changes. HENT: No congestion, no sore throat, no ear pain. Cardiovascular: No chest pain, no palpitations. Respiratory: No shortness of breath, no wheezes, no cough. Gastrointestinal: No abdominal pain, no vomiting, no diarrhea. Genitourinary: No dysuria, no hematuria. Musculoskeletal: Left shoulder pain. Skin: No rashes, no pruritis. Neurological: No dizziness, weakness, sensory change, speech change. Endo/Heme/Allergies: No bruising or bleeding. No polydipsia. Pysch: no suicidality, no anxiety, no insomnia. All other systems reviewed and are negative. [facility] Medical History (Updated 02/26/24 @ 17:51 by Usman Caputo MD) Obstructive sleep apnea of adult (11/26/09) ?G47.33 - Obstructive sleep apnea (adult) (pediatric) (ICD-10) Malignant melanoma of left lower limb, including hip (12/06/21) ?C43.72 - Malignant melanoma of left lower limb, including hip (ICD-10) Osteoarthritis of left hip (12/17/12) ?M16.12 - Unilateral primary osteoarthritis, left hip (ICD-10) Personal history of allergy to antibiotic agent (05/17/21) ?Z88.1 - Allergy status to other antibiotic agents (ICD-10) 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) ?N99.3 - Prolapse of vaginal vault after hysterectomy (ICD-10) Primary insomnia (07/17/15) ?F51.01 - Primary insomnia (ICD-10) Personal history of colonic polyps (05/27/13) ?Z86.010 - Personal history of colonic polyps (ICD-10) OAB (overactive bladder) (02/14/19) ?N32.81 - Overactive bladder (ICD-10) Nocturnal polyuria (02/14/19) ?R35.81 - Nocturnal polyuria (ICD-10) Left carotid stenosis (03/19/17) ?I65.22 - Occlusion and stenosis of left carotid artery (ICD-10) Hyperlipidemia (05/17/21) ?E78.5 - Hyperlipidemia, unspecified (ICD-10) HTN (hypertension) (11/13/09) ?I10 - Essential (primary) hypertension (ICD-10) Hallux rigidus of right foot (07/07/12) ?M20.21 - Hallux rigidus, right foot (ICD-10) GERD (gastroesophageal reflux disease) (06/29/09) ?K21.9 - Gastro-esophageal reflux disease without esophagitis (ICD-10) Fibromyalgia (05/17/21) ?M79.7 - Fibromyalgia (ICD-10) DDD (degenerative disc disease), cervical (10/27/17) ?M50.30 - Other cervical disc degeneration, unspecified cervical region (ICD- 10) Daytime somnolence (02/14/19) ?R40.0 - Somnolence (ICD-10) Cervicalgia ?M54.2 - Cervicalgia (ICD-10) Bladder prolapse, female, acquired (06/19/15) ?N81.10 - Cystocele, unspecified (ICD-10) Arthritis of carpometacarpal (CMC) joints of both thumbs (02/06/17) ?M18.0 - Bilateral primary osteoarthritis of first carpometacarpal joints (ICD-10) Allergic rhinitis, cause unspecified ?J30.9 - Allergic rhinitis, unspecified (ICD-10) Adverse reaction to sulfa antibiotic (11/03/13) ?T37.0X5A - Adverse effect of sulfonamides, initial encounter (ICD-10) Surgical History (Updated 11/24/23 @ 17:38 by Sean Maguire MD) Status post intraocular lens implant (04/10/21) ?Z96.1 - Presence of intraocular lens (ICD-10) Status post left hip replacement (05/17/21) ?Z96.642 - Presence of left artificial hip joint (ICD-10) Family History (Updated 11/24/23 @ 17:39 by Sean Maguire MD) Son Colon cancer Sister Diabetes High blood pressure Father Heart disease Mother Alzheimers disease Social History What is your current living situation?: I presently have a place to live Problems where you live: no known problems Problems where you live details: N/A In the past 12 months, utilities in danger of being shut off: no In past 12 months, lack of transportation kept you from medical appts, meetings, work, or getting things needed for daily living: no In the past 12 mos, have been you worried that your food would run out before you had money to buy more?: never true In the past 12 mos, the food you bought just didn't last and you didn't have money to buy more?: never true Highest level of school completed/degree received: Associate degree: occupational, technical, vocational program Smoking Status: Never smoker Do you use any of these nicotine containing products: None Second hand tobacco smoke exposure: No How often do you have a drink containing alcohol: 4 or more times a week How many standard drinks containing alcohol do you have on a typical day: 1 or 2 AUDIT-C Alcohol total score: 4 Non-prescribed substance use: denies use Caffeine: Yes How often does anyone, including family, friends and others, physically hurt you : never How often does anyone, including family, friends and others, insult or talk down to you: never How often does anyone, including family, friends and others, threaten you with harm: never How often does anyone, including family, friends and others, scream or curse at you: never service: No Exam 2 Narrative: Exam Narrative: Constitutional: Well-developed, well-nourished, no acute distress. HEENT: Large hematoma in the left temporal region with a skin abrasion and small laceration with persistent bleeding and the center portion of the hematoma. Neck: Normal range of motion. Nontender. Supple. Heart: Regular. No murmurs. Normal rate. Intact distal pulses. Lungs: Clear to auscultation. No chest discomfort. No wheezes, rhonchi, or rales. Abdomen: Normal bowel sounds. Nontender. No rebound tenderness. Genitalia: Deferred. Back: No midline tenderness. Normal range of motion. Extremities: Diffuse pain in the left shoulder region with no sign of deformity. Skin: Intact. No rash. Warm. No erythema or pallor. Neurologic: No altered sensation. No weakness. Alert and oriented. Psychiatric: No suicidality. No anxiety or depression. No insomnia. Nursing notes and vitals signs are reviewed. Const: Vital Signs, click to edit/add: Vital Signs - 24 hr 02/26/24 15:34 02/26/24 16:38 02/26/24 17:00 Temperature 97.1 F L Pulse Rate 69 68 Pulse Rate [Pulse Oximeter] 81 Respiratory Rate 18 Blood Pressure Blood Pressure [Ri ght Upper Arm] 150/78 H Pulse Oximetry 97 98 98 Oxygen Delivery Me thod Room Air 02/26/24 17:04 02/26/24 17:30 02/26/24 17:34 Temperature Pulse Rate 69 70 69 Pulse Rate [Pulse Oximeter] Respiratory Rate Blood Pressure 194/82 H Blood Pressure [Ri ght Upper Arm] Pulse Oximetry 98 99 98 Oxygen Delivery Me thod Course Vital Signs Vital signs: Initial Vital Signs Temperature 97.1 F L 02/26/24 15:34 Temperature Source Temporal Artery Scan 02/26/24 15:34 Pulse Rate 81 02/26/24 15:34 Pulse Rhythm Regular 02/26/24 15:34 Pulse Strength 3+ Normal 02/26/24 15:34 Respiratory Rate 18 02/26/24 15:34 Blood Pressure 150/78 H 02/26/24 15:34 Blood Pressure Mean 102 02/26/24 15:34 Blood Pressure Position Semi-Fowlers 02/26/24 15:34 Pulse Oximetry 97 02/26/24 15:34 Oxygen Delivery Method Room Air 02/26/24 15:34 Vital Signs Temperature 97.1 F L 02/26/24 15:34 Pulse Rate 81 02/26/24 15:34 Respiratory Rate 18 02/26/24 15:34 Blood Pressure 150/78 H 02/26/24 15:34 Pulse Oximetry 97 02/26/24 15:34 Oxygen Delivery Method Room Air 02/26/24 15:34 Temperature 97.1 F L 02/26/24 15:34 Pulse Rate 69 02/26/24 17:34 Respiratory Rate 18 02/26/24 15:34 Blood Pressure 194/82 H 02/26/24 17:34 Pulse Oximetry 98 02/26/24 17:34 Oxygen Delivery Method Room Air 02/26/24 15:34 Medications Administered Medications: Discontinued Medications Generic Name Dose Route Start Last Admin Trade Name Freq PRN Reason Stop Dose Admin Oxycodone HCl 5 mg 02/26/24 16:18 02/26/24 16:20 Oxycodone 5 Mg Tablet PO 02/26/24 16:19 5 mg ONCE ONE Administration MDM - Fall MDM Narrative Medical decision making narrative: This patient comes in for evaluation of injuries from a fall that occurred prior to arrival. She has a rather large hematoma on the left side of her head that had some ongoing bleeding upon arrival. A pressure dressing was applied with some ice temporarily and this cause the bleeding to stop. There is no distinct laceration in this area but more of a abrasion with some skin breakdown that allowed for bleeding. This wound was repaired with Dermabond after the bleeding has stopped. CT imaging of her head shows no acute intracranial findings. Additionally x-ray of her left shoulder also is negative. She does have some shoulder pain from a contusion but it is uncertain if there was any soft tissue damage otherwise as a was not able to take her through a good shoulder exam. The she did receive a sling and a prescription for some tablets of oxycodone. She does have a follow-up appointment with physical therapy in 3 days and is encouraged to attend this appointment and adjust therapy as needed. Additionally she can follow-up with orthopedic clinic if not improving. Imaging Data CT scan - head: Radiologist's impression: 1. No acute intracranial hemorrhage. 2. Left frontal scalp hematoma. No underlying calvarial fracture. 3. Multifocal encephalomalacia involving the right precentral gyrus and left pre and postcentral gyri, consistent with sequela of prior infarcts. XR L Shoulder: Radiologist's impression: No acute osseous abnormality. Discharge Plan Discharge Clinical Impression: Laceration of scalp, Contusion of left shoulder Patient Disposition: Home w/ Parent or Adult Condition: Stable Additional Instructions: This medication as needed and directed for pain. Increase activity as tolerated. Wear sling as needed. Follow up with physical therapy point min as scheduled or orthopedic clinic as needed. Return if worsening. Prescriptions: New oxycodone 5 mg capsule 5 mg PO Q6H PRN (Reason: pain) Qty: 14 0RF No Action acetaminophen 500 mg tablet 1,000 mg PO BID Rx Instructions: PLUS AN ADDITIONAL DOSE IN THE MIDDLE OF THE DAY NEEDED calcium carbonate-vitamin D3 200 mg-10 mcg (400 unit) capsule 2 cap PO DAILY cholecalciferol (vitamin D3) 50 mcg (2,000 unit) capsule 4,000 unit PO DAILY Culturelle 10 billion cell capsule 1 cap PO DAILY clopidogrel 75 mg Tablet 75 mg PO DAILY 20 Days Qty: 20 0RF rosuvastatin 20 mg tablet 20 mg PO HS Qty: 30 0RF losartan 50 mg tablet 50 mg PO DAILY albuterol sulfate 90 mcg/actuation HFA aerosol inhaler 1 - 2 puff INHALATION Q4H PRN (Reason: dyspnea) estradiol [Yuvafem] 10 mcg tablet 10 mcg vaginal 3XW diclofenac sodium 75 mg tablet,delayed release (DR/EC) 75 mg PO DAILY oxycodone 5 mg tablet 5 mg PO Q6H PRN (Reason: pain) cetirizine [24Hour Allergy] 10 mg tablet 10 mg PO DAILY PRN coQ10 (ubiquinol) [Qunol Eduardo CoQ10] 100 mg capsule 100 mg PO DAILY rosuvastatin 10 mg tablet 10 mg PO QPM Brilinta 90 mg tablet 90 mg PO BID Follow Up/Referrals: Vaishali Baeza MD [Primary Care Provider] - Stand Alone Forms: [employer] Info Instructions
--- OUTSIDE RECORDS SUMMARY | 2024-02-26 15:56 | XMS_ITS | Continuity of Care Document ---
Author Organization [facility] Address [address] [place] [address] Phone Care Team Providers Care Driver/Refuse Collector Name Role Phone Sarah Grant MD Unavailable [...] [facility], [address], [place], [address], [place] tel:[phone] [facility] , No Information 3 Rudy Smith. [facility] [address], [place], [address], [place]. tel:[phone] Office/Outpa tient Visit, [facility], [address], [place], [address], [place] tel:[phone] [facility] , Pain All Over (chief complaint) Hallux rigidusPain in joint involving multiple sitesFatigue / MalaiseMyalg ia and myositis, unspecified 3 Rudy Smith. [facility] [address], [place], [address], [place]. tel:[phone] Referring Provider: Sarah Haider, [facility] [address], [place], [address]. tel:[phone] [facility], [facility], [place], [address], [place] tel:[phone] [facility] , No Information 3 Rudy Smith. [facility] [address], [place], [address], [place]. tel:[phone] Family History Family Member Type Diagnosis Age At Onset mother Problem (finding) osteoarthritis Payers Payer name Insurance type Covered alliance party ID Authoriza tion(s) [employer] Medicare Advantage/Plat inum Blue BL [id number] Social History Type Description Quantity Date Captured [...]
--- OUTSIDE RECORDS SUMMARY | 2024-02-26 15:56 | XMS_ITS | Continuity of Care Document ---
Author Organization [facility] Address [address] [place] [address] Phone Care Team Providers Care Swabber Name Role Phone Dinesh Sears Unavailable Unavailable [...] Available - Active Procedures Procedure Date Office/Outpatient Visit,[facility] 2017 Advance Directives Directive Yes / No Effective Date File Name No Information Encounters Encounter Description Practice Location Reason(s) For Visit Diagnoses Date Provider Providers Copied on Encounter [facility], [address], [place], [place], [id number], [place] tel:[phone] [facility] No Information Demetrio Montiel. [facility] [place], [address], [place], [place], [id number], [place]. tel:[phone] Office/Outpat ient Visit,[facility], [facility], [address], [place], [place], [id number], [place] tel:[phone] [facility] Spondylolisth esis, cervical region Demetrio Montiel. [facility] [place], [address], [place], [place], [id number], [place]. tel:[phone] Referring Provider: Vaishali Baeza , [address], [place], [address]. tel:[phone] Family History Family Member Type Diagnosis Age At Onset No Information Payers Payer name Insurance type Covered republican ID Jonas robertson(s) [facility] [id number] Medicare Dominguez [id number] 1 Social History Type Description Quantity Date [...]
--- OUTSIDE RECORDS SUMMARY | 2024-02-26 15:57 | XMS_ITS | Encounter Summary ---
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 [address] [place] [address] [facility] Referral ID Status Reason Start Date Expiration Date Visits Re quested Visits Authorized Scheduling Instructions Please schedule one hour phone visit (EST PHONE NONF2F) with Johann Yu RN on the [facility] Cerebrovascular Nurse for May 04 at 3 pm. Reason for Visit * Reason Comments Stroke Prevention program Stroke Stroke prevention cl inic * Outpatient (Routine) - Closed Specialty Diagnoses / Procedures Referred By Contac t Referred To Contact Diagnoses Stroke (HCC) Ritchie Cosby M.D. [address] [place] [address] [facility] Referral ID Status Reason Start Date Expiration Date Visits Re quested Visits Authorized [id number] Closed 12/25/2023 06/25/2025 1 1 Encounter Details Date Type Department Care Team (Latest Contact Info) Description 01/27/2024 8:30 AM CDT Comprehensive Visit Department of Neurology in [place], [place] [address] [place] [phone] Ritchie Cosby M.D. [address] [place] [address] Queta Quinn M.D. [address] [place] [address] Stroke Cerebrovascular Accident Personal History (Primary Dx); Stroke (HCC) Social History Tobacco Use Types Packs/Day Years Used Date Smoking Tobacco: Never Smokeless Tobacco: Never Alcohol Use Standard Drinks/Week Comments Yes 7 (1 standard drink = 0.6 oz pur e alcohol) Daily caffeine [facility] Utilities Answer Date Recorded In the past 12 months has e [employer], gas, oil, or water [employer] threatened to shut off services in your home? No 01/23/2024 Humiliation, Afraid, Rape, and Kick questionnair e Answer Date Recorded Within the last year, have y ou been afraid of your partner or ex-partner? No 12/29/2023 Within the last year, have y ou been humiliated or emotionally abused in other ways by your partner or ex-partner? No Within the last year, have y ou been kicked, hit, slapped, or otherwise physically hurt by your partner or ex-partner? No 12/29/2023 Within the last year, have y ou been raped or forced to have any kind of sexual activity by your partner or ex-partner? No 12/29/2023 Social Connection and Isolat ion Panel [NHANES] Answer Date Recorded In a typical week, how many times do you talk on the phone with family, friends, or neighbors? More than three times a week 09/27/2022 How often do you get togethe r with friends or relatives? Three times a week 09/27/2022 How often do you attend chur ch or zoroastrianism services? More than 4 times per year 09/27/2022 Do you belong to any clubs o r organizations such as mormonism groups, unions, fraternal or athletic groups, or [...] and heating? Not hard at all 09/27/2022 PHQ-2 Answer Date Recorded PHQ-2 Score 0 01/27/2024 [facility] - Occupational Stress Questionnaire Answer Date Recorded [...] to strenuous exercise (like a brisk walk)? 7 days 01/23/2024 On average, how many minutes do you engage in exercise at this level? 20 min 01/23/2024 Hunger Vital Sign Answer Date Recorded Within the past 12 months, y ou worried that your food would run out before you got the money to buy more. Never true 01/23/20 24 Within the past 12 months, t he food you bought just didn't last and you didn't have money to get more. Never true 01/23/2024 PRAPARE - Transportation Answer Date Re corded In the past 12 months, has l ack of transportation kept you from medical appointments or from getting medications? No 01/08 In the past 12 months, has l ack of transportation kept you from meetings, work, or from getting things needed for daily living? No 01/23/2024 Depression Answer Date Recor ded PHQ-9 Total Score (max 27) 1 01/26 Nutrition Answer Date Recorded On average, how many serving s of fruits and vegetables do you eat per day (serving size is equal to 1 cup or approximately the size of a tennis ball)? 3-5 01/23/2024 Dental Answer Date Recorded Dental: Regular Dentist Yes 08/13/19 Employment Answer Date Recorded Employment status Retired 01/23/2024 Housing Stability Answer Date Recorded What is your living situation today? I have a [facility] place to live 01/23/2024 Education Answer Date Recorded What is the highest level of school you have completed or the highest degree you have received? Associate degree: occupational, technical, or vocational program 09/27/2022 Sex and Gender Information Value Date Recorded Sex Assigned at Female 06/28/2018 10:53 AM OB NURSE Gender Identity Female 06/28/2018 10:53 AM OB NURSE Sexual Orientation Straight 06/28/2018 10 :53 AM OB NURSE documented as of this encounter Last Filed Vital Signs Vital Sign Reading Time Taken Comments Blood Pressure 153/73 01/27/2024 9:50 AM CDT Pulse 69 01/27/2024 9:50 AM CDT Temperature - - Respiratory Rate - - Oxygen Saturation - - Inhaled Oxygen Concentration - - Weight 97 kg (213 lb 13.5 oz) 01/27/2024 10:19 A M CDT Height 176 cm (5' 9.29) 01/27/2024 10:19 AM CDT Body Mass Index 31.31 01/27/2024 10:19 AM CDT documented in this encounter Progress Notes * Queta Quinn M.D. - 01/27/2024 8:30 AM CDT Images from the original note were not included. SUBJECTIVE Referring Provider: Ritchie Cosby M.D. CHIEF COMPLAINT / REASON FOR VISIT Stroke prevention clinic HISTORY OF PRESENT ILLNESS Latonya Gordon is a 83 y.o. female with a history of hypertension and hyperlipidemia. Patient had onset of left upper extremity weakness on 11/20/2023. She was evaluated at local ED initially and had reportedly a negative CT and discharged. She presented again to [facility] on 11/25/2023 after developing sudden worsening of left upper extremity weakness. She was admitted and found to have right MCA territory infarct, specifically right precentral gyrus on brain MRI. She was discharged to home on DAPT 81 mg of aspirin and 75 mg of Plavix. Her left upper extremity strength improved from 11/25 to 12/17/2023. However on 12/17/2023, she had sudden onset of left lower extremity weakness with worsening of her left upper extremity weakness. She presented to our ED where she was found to have new right MCA territory stroke concerning for possible symptomatic carotid stenosis. Work up included: - CT head noncontrast on 11/24 which showed a small acute cortical infarct in the right precentral gyrus. - CT angiogram head and neck showed moderate possible right ICA stenosis, 50% by NASCET. - TTE that showed ejection fraction 60-65%, no common on the left atrial or appendageal size, no comment regarding intracardiac thrombus. - MRI brain without contrast performed 11/26 revealed acute right precentral gyrus cortical infarction, multiple small foci of diffusion restriction in the right frontal deep white matter and parietalcortex representing acute infarction, chronic left post central gyrus, parietal and deep white matter infarction. Repeat brain MRI without contrast on 12/22/2023 revealed acute right MCA territory infarct including the right precentral gyrus. MR angiogram of head and neck which showed 25-30% stenosis of right proximal ICA with predominantly noncalcified atherosclerotic plaque in this region with a thin rim of peripheral calcification. No evidence of intra plaque hemorrhage, this study was limited by motion artifact. GERA which showed diffuse moderate immobile atheroma measuring 3-5 mm thickness with the ulceration of the descending thoracic aorta and aortic arch. There was no left atrial dilatation or left appendageal thrombus. The etiology of her stroke was felt to be atherosclerosis (arch +/- carotid). However, a 30 day monitor also performed showing no evidence of afib, and a few runs of vtach and svt. We decided to switch her Plavix to Brilinta 90 mg b.i.d. to complete a total of 30 days DAPT therapy with the end dateon 01/22/2024. Patient has been evaluated by PT and OT and deemed an inpatient rehab candidate. She was dischargedon 12/25/23 to [facility] inpatient rehabilitation where she remained until 01/01/2024. She is continuing with twice weekly physical therapy. Her arm has improved, but still has a numb/heavy feeling of the leg. She had graduated from a walker to a cane, but recently fell at [employer] and developed a painful tail bone. She has been struggling with chronic low back and neck pain since the hospitalization where her NSAID and high dose Aspirin was stopped. She is now on oxycodone 1 tablet at night. She tried pregabalin but became unsteady. She tried tramadol without benefit. She also uses lidocaine patch and 3000mg total of Tylenol daily. Past Medical History Melanoma - lower limb Stroke Hypertension Hyperlipidemia Impaired fasting glucose Chronic neck and back pain History of sleep apnea Allergic rhinitis Retinal detachment Data Review Echo Transesophageal (GERA) Result Date: 12/23/2023 1. Diffuse moderate immobile (atheroma 3-5 mm thickness without ulceration) atherosclerosis of the descending thoracic aorta and aortic arch. 2. No shunt at atrial level by color flow imaging and agitated saline contrast injection. 3. Normal left ventricular chamber size , estimated ejection fraction 60%, no regional wall motion abnormalities. 4. Normal right ventricular chamber size and systolic function. 5. No left atrial appendage thrombus. 6. No hemodynamically significant valvular heart disease. 7. Aortic valve strands , degenerative, at commissure of non- and left coronary cusps, of low thromboembolic potential. 8. No pericardial effusion. ATRIA:Mildly enlarged left atrial size by visual estimate. Dilated left atrial appendage. No left atrial appendage thrombus. MR Brain without and with IV Contrast, MR Neck Angiogram without and with IV Contrast, MR Brain Angiogram without IV Contrast Result Date: 12/22/2023 Impression: 1. Multiple small acute subacute infarcts right frontal lobe as described. 2. Chronic intracranial on MRI brain changes as described 3. Approximately 25-30% stenosis right proximal ICA. Carotid plaque protocol is limited due to motion, although there is predominantly noncalcified atheros clerotic plaque in this region with a thin rim of peripheral calcifications. No evidence of intraplaque hemorrhage though allowing for motion. 4. 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 Both A2 segments aresupplied by the left A1 segment.Atherosclerotic plaque both cavernous ICAs CT ANGIO HEAD NECK CAROTID STROKE PROTOCOL IZAIAH CANDIDAT Result Date: 12/18/2023 Impression: 1. Mild (<50%) atherosclerotic stenosis of the proximal right ICA by NASCET criteria. 2. Moderate stenosis at the origin of the right vertebral artery. CT HEAD STROKE PROTOCOL WITHOUT CONTRAST Thrombolytic Candidate Result Date: 12/17/2023 Impression: No acute hemorrhage or large territory infarct. Small chronic left- sided infarcts are again seen. 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 Stroke may be due to nonstenotic plaque rupture (carotid cavernous/ carotid bifurcation/aorta) . If recurrent event, consider angiography and neurosurgery evaluationof right carotid artery - Antithrombotic: Discussed that we can stop dual antiplatelet therapy and consider monotherapy. Patient afraid to return to daily aspirin. Discussed risks/benefits of brilinta alone. She prefers brilinta 90mg BID. - Risk factors: Vascular risk factor goals for cerebral ischemia include: BP<130/80, LDL<70mg/dl If atherosclerotic stroke and beginning LDL >100mg/dl, normoglycemia, no tobacco, normal BMI (<25). Blood pressure remains high here, but home blood pressures look very reasonable. Could rescreen for sleep apnea given history of KIMBER as KIMBER can be risk factor for stroke. - Functional Impairment: Continue local physical therapy; discussed prognosis, recurrent stroke risk. # Pain - Deferred to local MD; offered pain clinic, pain rehab - Ok to use diclofenac sparingly <1 time per week Patient met with pharmacy regarding medications, nursing regarding stroke education and risk factormanagement. Explained the stroke prevention clinic role in their care and provided contact information. * Johann Yu, RMarthaN. - 01/27/2024 8:30 AM CDT Mrs. Gordon is referred to the Stroke Prevention Program by Dr. Queta Quinn for education and intervention regarding cerebrovascular risk factors following Right MCA stroke. 11/20/2023. She had an ocular migraine headache with vision in right eye affected--was seeing squiggly lines. Then on 11/20 she felt a pressure sensation in the left arm and the arm went . She could not lift it. Went to emergency department at [facility]. Had CT angiogram of head and neck and CT head. Signs of old stroke. Her symptoms resolved and she was discharged home. Left arm symptoms were mild and intermittent since then until 11/23 when the left face and arm went numb. Went to [facility] emergency department. CT scan showed right cortical infarct, right precentral gyrus. CT angiogram showed 50% stenosis of right internal carotid--similar to previous ultrasound. Plavix is added to her aspirin for 21 days at least. Admitted to [facility] for observation and blood pressure management 12/16 extremity strength improved from 11/25 to 12/16. 12/16, she had sudden onset of left lower extremity weakness with worsening of her left upper extremity weakness. local ER for left sided weakness/heaviness (both left arm and left leg). Pt states she feels like her face is frozen on left side and tongue is heavy. Denies changes in vision. CT and CTA brain no new problems 12/17 leg weakness and general weakness. 12/21 She presented to [place] ED where she was found to have new right MCA territory stroke concerningfor possible symptomatic carotid stenosis seen in local ER for left sided weakness/heaviness (both left arm and left leg). A brain MRI without contrast on 12/21 revealed acute right MCA territory infarct including the right precentral gyrus. mechanism of her stroke is most likely atheroembolic from her diffuse aortic arch atheroma. She hashad extensive left MCA territorial infarcts as well as new right MCA territorial infarcts in the past 2 months. 12/21-12/24 hospitalized noted mechanism of her stroke is most likely atheroembolic from her diffuse aortic arch atheroma. She has had extensive left MCA territorial infarcts as well as new right MCA territorial infarcts in the past 2 months. switched from Plavix to Brilinta 12/24-12/31 inpatient rehab 01/19 30 day Holter completed Together with the , the expectations of the stroke prevention clinic were discussed. 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 Dr. Queta Quinn and pharmacist, Marita Cruz, PharmD also saw the patient during this visit. The patient reports falls since dismissal. Patient fell on Thursday in [employer]. She notes she caught her foot on something. Fell backward and her back and sacral area is painful. She did have a xray that was negative for fracture. One week ago she switched from using a walker to using a cane. Continues to use the cane and we discussed using the walker when out if she finds that more stabilizing. The patient reports that she is taking antiplatelet medication. The patient denies any signs of bleeding, recurrent, or new symptoms of stroke since dismissal. We reviewed signs of stroke and patient reports an accurate understanding of these as indications for seeking emergent medical attention. We reviewed the patient's medication list with the patient reporting this is accurate. The patient's risk factors were assessed including a review of today's vital signs, lipid profiles,and most recent HgbA1c. -Blood Pressure: The patient does have a history of hypertension. The patient is currently taking anti-hypertensive medications. She is monitoring her blood pressure daily at home. -Hyperlipidemia: The patient does have a history of hyperlipidemia. The patient did not have a change in statin medication at the time of hospitalization. -Diabetes: The patient does not have a history of diabetes. -Smoking: The patient does not have a history of smoking. -Alcohol: The patient does consume alcohol. We reviewed the recommended alcohol amount per day based on the [place] guidelines. She reports one glass of wine per day in the evening. -Typical dietary habits: Latonya reports she eats a gluten free diet, will eat plenty of fruits and vegetables per day and likes to eat more fresh foods. Typical fruit and vegetable intake is at least 5 servings per day. -Weight: The patient states her weight has been stable. -Activity: The patient typically walks around the house three times per day, prior to fall she was using her stationary bike for 20-25 minutes per day and moves throughout the day frequently. -Sleep: The patient does have a history of sleep apnea. Reports 12-15 years ago she was diagnosed with mild KIMBER and trialed the CPAP but was unable to tolerate it at that time and has not had reassessment since. No reports of daily headaches or snort awakenings by but she does snore some. The patient typically sleeps 7-9 hours per night with three awakenings to use the bathroom. Notes shedoes return to sleep without problems. -Stress: The patient reports moderate post stroke fatigue and stress levels of 8 today due to worries about health but generally rates her stress level a 5 indicates he thinks it is higher than 5. (1 least, 10 most). -MRS: The patient's modified [place] score was assessed today. The patient is unable to carry out all previous activities, but is able to look after own affairs. The Modified [place] score is a 2. The patient completed the routine PHQ9 depression screening. PHQ-9 Total Score (max 27): 1 (01/27/24 0821) indicating no evidence of depression (0-4). Together with the , the risk factors were discussed with education provided about goal parameters for each risk factor. The patient was commended for positive approach and successes with current modifications. The patient agrees to participate in periodic phone follow up visits. Our Stroke Prevention Clinic contact numbers were provided to the patient as well. The patient shares appreciation for this visit. Collectively, we have agreed upon our next follow up visit to be via phone on May 04 at 3 pm . Educational materials provided to the patient based on their learning preferences included: [id number] Stroke Prevention Follow Along Program: [facility] [id number] We are your team; Cerebrovascular, Department of Neurology CC0135 Stroke: Every Minute Matters (wallet card) [id number] Stroke Card, Stroke Magnet [id number] How to Create a Patient Online Services Account ML4543-09 General Local Resources for Patients with Stroke WP9671-93 Stroke Website Resources [id number] Recognizing and Preventing Strokes RF0048-35 Stroke Self-Care Plan FI4297 Stroke Bookmark Free Support After Brain Injury or Stroke - MDH/MSA RB1724 Emotional Response to Stroke LE6867-45 Recovering from Stroke IS9287 The Power of Prevention OP1785-23 Stroke and Stroke Prevention OR5271-97 Stress Reducers IJ1101 Information for Caregivers: Taking Care of Yourself XY1652 High Blood Pressure (Hypertension) Understanding and Controlling Your High Blood Pressure - AHA/ASA JJ3723-20 Blood Pressure and Weight Record CL2040 Measuring Your Blood Pressure at Home GE8391 DASH Diet: Healthy Eating to Lower Your Blood Pressure [id number] Your Guide to Lowering Blood Pressure QE0740 Guidelines for Controlling Sodium FH6362-77 Nutrition Guidelines for Cholesterol, Triglycerides and Sodium FA7746 Alternative Therapies for Managing or Lowering Cholesterol UN6645-20 Lowering High Cholesterol Through Diet AI3856-73 Lowering High Triglycerides Through Diet PP6018-70 Fats and Oils QT3914-69 How to Read a Food Label AD5411-87 Eat Well: Use the Plate Method AB0326 The Mediterranean Diet TM4942-45 Mediterranean Diet Pyramid: Guidelines for Adults Eating Out; Eating Healthy Choose Your Foods; Food Lists for Diabetes QK5332-54 Guidelines for a Potassium-Controlled Diet LZ1949-78 How to Get the Healthy Sleep You Need [id number] How to Keep Your Brain Healthy; And How to Know If You May Have a Problem CD8042-00 After Brain Injury: Helping Your Loved One on the Road to Recovery * Marita Cruz Pharm.D., R.Ph. - 01/27/2024 8:30 AM CDT Medication Management Services ([facility]) SUBJECTIVE Latonya Gordon is a 83 y.o. female, who is seen by [facility] Pharmacist for targeted medication review. She was referred by Ritchie Cosby M.D. per departmental standard of care. Patient was not at the visit and represented by patient's significant other Henrik . The patient does not appear cognitively imp aired at this visit. The purpose of the visit is: post-hospitalization medication review. She was collaboratively seen with Ms. Johann Yu RN and Dr. Jerome Quinn MD today. The following portions of the patient's history were reviewed and updated as appropriate: allergies, current medications, family history, medical history, social history, surgical history and problemlist. ASSESSMENT / PLAN Assessment/Plan 1. Medication Reconciliation: Medication reconciliation was accomplished by review of all medications, prescription and non-prescription/prescription medications only from memory, pharmacy dispensing record, and electronic healthrecord medication list. Medications were reviewed and reconciled with the patient. Patient is able to correctly state how each medication is taken and the indication for use. 2. Medication Adherence: The medication(s) are reportedly being taken as prescribed. Reminder tools the patient uses: pill box and spousal/significant other support. She takes medications twice throughout the day and has not missed any doses in the past week. 3. Review of Medication Therapy: All medications appear indicated at this time. She continues on treatment with rosuvastatin 20 mg daily. Lipid panel at the time of the hospitalization showed an LDL of 72. She is on aspirin (Ecotrin, Leah) 81 mg once daily and ticagrelor (Brilinta) 90 mg twice daily forstroke prevention. This was to be continued for 30 days post- stroke. She is tolerating therapy wellwith no signs of bruising or bleeding. We discussed the [facility] risks of dual antiplatelet therapy (namely increased risk for bleeding), prior clopidogrel use (including potential for [id number] testing) and ideal aspirin dose for cardiovascular health. Ticagrelor affordability does not appear to henrique financial burden currently for her. She would be open to continuing this as monotherapy, if deemed the appropriate intermediate teacher management. 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 Currently she is taking oxycodone just at night with acetaminophen, but has trialed tramadol (x 1 dose), pregabalin (x 1 dose) and hydroxyzine (x 2 doses). Diclofenac daily has been the most beneficial for her neck pain in the past. This was discontinued when she started antiplatelet medications for stroke prevention. 4. Drug Interaction Screening: No drug interactions of clinical significance were identified. She has trialed multiple [employer]-active medications which can have synergistic effects for sedation. She is a fall risk and has recently fallen in mormonism. Latonya Gordon expressed understanding of, and agreement with plan of care. She was provided a verbal summary of these recommendations. Total time spent was 25 minutes, with more than 50% of the time spent on counseling, coordination of care and patient education. Follow-up with pharmacist not necessary at this time . documented in this encounter Plan of Treatment Upcoming Encounters Date Type Department Care Team (Late st Contact Info) Description 05/04/2024 3:00 PM CDT Education Department of Neurology in [place], [place] [address] [place] [address] Queta Quinn M.D. 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
--- OUTSIDE RECORDS SUMMARY | 2024-02-26 15:57 | XMS_ITS | Referral Summary ---
Author Organization [facility] Address [address] [place] [address] Care Team Providers Care Business Process Associate Name Role Phone Elsewhere, Pcp Primary Care Provider Unavailabl e Source Comments Patient records contain information from all sites at [facility]. For routine questions regarding patient records, call [phone] during business hours, M-F 8:00 AM - 5:00 PM Central Time. Record requests for emergency care only can be directed to [phone] at any time.[facility] Encounters Date Type Department Care Team Description 02/05/2024 2:00 PM CDT Comprehensive Visit Department of Physical Medicine and Rehabilitation in [place] [id number] [place] [phone] Xiomara Clemens D.O. Nelli Reyes, TATUM, PARK SUPERINTENDENT, M.S. Stroke Cerebrovascular Accident Personal History (Primary Dx); Stroke (HCC) Discharge Disposition: Home or Self Care 01/27/2024 8:30 AM CDT Comprehensive Visit Department of Neurology in [place], [place] [address] [place] [address] Ritchie Cosby M.D. Queta Quinn M.D. Stroke Cerebrovascular Accident Personal History (Primary Dx); Stroke (HCC) 12/25/2023 1:18 PM CDT - 01/01/2024 1:08 PM CDT Hospital Encounter [facility], [facility], [facility], Fourth Floor [address] [place] [phone] Justin Melendez D.O., M.S. Elizabeth Doss M.D. Arian Ruiz M.D. Mary Fuller M.D. Stroke (HCC) [I63.9] (Primary Dx); Lack Of Coordination [R27.9]; Stroke (HCC); Weakness Muscle Discharge Disposition: Home or Self Care 12/28/2023 Clinical Communication Department of Neurology in [place], [place] [address] [place] [address] Ritchie Cosby M.D. Remote Patient Monitoring (Connectivity Notification: Disconnected Monitor) 12/25/2023 11:20 AM CDT - 12/25/2023 1:17 PM CDT Hospital Encounter Division of Cardiovascular Diseases in [place], [place] [address] [place] [address] Ritchie Cosby M.D. Discharge Disposition: Home or Self Care 12/22/2023 4:55 AM CDT - 12/25/2023 1:11 PM CDT Hospital Encounter [facility], [facility], Second floor [address] [place] [address] Apolinar Parrish M.D., M.A. Rolando Glynn M.D. Queta Quinn M.D. Rosalina Holly, TATUM, C.N.P. Stroke ([facility]) (Primary Dx); Abnormal Gait Non Orthopedic [R26.89]; Lack Of Coordination [R27.9]; Abnormal Posture [R29.3] Discharge Disposition: Rehab Facility from Last 3 Months Allergies Active Allergy [...] 3 (three) times a week. 04/06/2021 Active co-enzyme Q-10 (CO Q-10) 100 mg capsule Take 100 mg by mouth daily. Active oxyCODONE (ROXICODONE) 5 mg immediate release tablet Take 1 tablet by mouth at bedtime. 11/26/2023 Active rosuvastatin calcium (ROSUVASTATIN ORAL) Take 20 mg by mouth daily. 11/25/2023 Active acetaminophen (TYLENOL) 500 mg tablet Take 2 tablets (1,000 mg total) by mouth every 6 (six) hours as needed for mild pain or score 1-3 of 10 or moderate pain or score 4-6 of 10. 12/29/2023 Active aspirin 81 mg chewable tablet Chew 1 tablet (81 mg total) daily. 12/30/2023 Active hydrOXYzine (ATARAX) 25 mg tablet Take 1 tablet (25 mg total) by mouth every 8 (eight) hours as needed for anxiety. 15 tablet 12/29/2023 Active Brilinta 90 mg tablet Take 90 mg by mouth 2 (two) times a day. 01/22/2024 Active traMADoL (ULTRAM) 50 mg tablet Take 50 mg by mouth 3 (three) times a day as needed for moderate pain or score 4-6 of 10 or severe pain or score 7-10 of 10. 01/15/2024 Active Active Problems Problem Noted Date Diagnosed Date Stroke 12/22/2023 Wound Lower Leg Open Initial Left 01/02/2022 Melanoma Leg Left 12/17/2021 Malignant Melanoma Of Left Lower Limb Including Hip 12/06/2021 Overview: Added automatically from request for surgery [id number] Fibromyalgia 05/17/2021 Primary Generalized Osteoarthritis 05/17/2021 Arthroplasty [...] 05/13/2017 Influenza, Seasonal, Injectable 06/03/2016,06/08,04/20/2009 PCV13 12/18/2015 PPSV23 05/02/2010 RZV (SHINGRIX) 06/13/2019,03/09/2019 SARS-COV-2 (COVID-19) - [...] 0.6 oz pur e alcohol) Daily caffeine [facility] Utilities Answer Date Recorded In the past 12 months has e [employer], [employer], oil, or water [employer] threatened to shut off services in your [...] often do you attend chur ch or uatsdin services? More than 4 times per year 09/27/2022 Do you belong to any clubs o r organizations such as bahai groups, unions, fraternal or athletic groups, or [...] Answer Date Recorded PHQ-2 Score 0 01/27/2024 [facility] - Occupational Stress Questionnaire Answer [...] your living situation today? I have a [facility] place to live 01/23/2024 Education Answer Date Recorded What is the highest level of school you have completed or the highest degree you have received? Associate degree: occupational, technical, or vocational program 09/27/2022 Sex and Gender Information Value Date Recorded Sex Assigned at Female 06/28/2018 10:53 AM RECORDS MANAGEMENT ASSISTANT Gender Identity Female 06/28/2018 10:53 AM RECORDS MANAGEMENT ASSISTANT Sexual Orientation Straight 06/28/2018 10 :53 AM RECORDS MANAGEMENT ASSISTANT Last Filed Vital Signs Vital Sign Reading Time Taken Comments Blood Pressure 153/73 01/27/2024 9:50 AM CDT Pulse 69 01/27/2024 9:50 AM CDT Temperature 36.2 ??C (97.2 ??F) 01/01/2024 12:40 PM C DT Respiratory Rate 16 01/01/2024 12:40 PM CDT Oxygen Saturation 97% 01/01/2024 12:40 PM CDT Inhaled Oxygen Concentration - - Weight 97 kg (213 lb 13.5 oz) 01/27/2024 10:19 A M CDT Height 176 cm (5' 9.29) 01/27/2024 10:19 AM CDT Body Mass Index 31.31 01/27/2024 10:19 AM CDT Plan of Treatment Upcoming Encounters Date Type Department Care Team (Late st Contact Info) Description 05/04/2024 3:00 PM CDT Education Department of Neurology in [place], [place] [address] [place] [address] Queta Quinn M.D. [address] [place] [address] Medical Devices Implanted Type Area Professor Of Voice Device Identifier Shelf Expiration Date Model / Serial / Lot Drsg Bilayer Matrix 5x5 - [id number] Implanted:Qty: 1 on 12/17/2021 by Brenda Mansfield D.O. at [facility] Bone or Tissue Left: Leg Integra 05/09/2023 [id number] / / [id number] Conversions - Default Historical Implant Device Implanted:05/05 (Quantity not on file) Hardware e.g. pins/screws /rods Right: Foot Description:Body Location - Foot R. Device Status Text - Hardware. screws. Clp Hrzn Ti 6 Clp Md Ruel - [id number] Implanted:Qty: 1 on 12/17/2021 by Brenda Mansfield D.O. at [facility] Hardware e.g. pins/screws /rods [employer] [id number] / / Clp Hrzn Ti 6 Clp Sm Red - [id number] Implanted:Qty: 1 on 12/17/2021 by Brenda Mansfield D.O. at [facility] Hardware e.g. pins/screws /rods [employer] [id number] / / Clp Hrzn Ti 6 Clp Sm Red - [id number] Implanted:Qty: 1 on 12/17/2021 by Brenda Mansfield D.O. at [facility] Hardware e.g. pins/screws /rods [employer] [id number] 07/21/2026 / / [id number] Clp Hrzn Ti 6 Clp Sm Red - [id number] Implanted:Qty: 1 on 12/17/2021 by Brenda Mansfield D.O. at [facility] Hardware e.g. pins/screws /rods [employer] [id number] 06/16/2026 / / [id number] Hip Implant- 0 Implanted:04/11 (Quantity not on file) Hip Implant Right: Hip Description:Implanted at [facility] Ocular Lens Ocular Lens Bilater al: Eye Procedures Procedure Name Priority Date/Time Associated Diagnosis Comments OUTSIDE CT BODY Routine 01/26/2024 10:20 AM CDT EVENT MONITOR - HOSPITAL HOOKUP AT DISCHARGE Routine 01/20/2024 1:19 AM CDT Stroke (HCC) (GERA) 2D WITH COLOR, LIMITED DOPPLER AND CONTRAST Routine 12/23/2023 9:11 AM CDT ECG Routine 12/22/2023 3:14 PM CDT HEMOGLOBIN A1C, B Routine 12/22/2023 11: 44 AM CDT LIPID PANEL, S Routine 12/22/2023 11:44 AM CDT THYROID-STIMULATIN G HORMONE-SENSITIVE (S-TSH) Routine 12/22/2023 11:44 AM CDT MR BRAIN ANGIOGRAM WITHOUT IV CONTRAST RAD - Routine (most inpatients and all outpatients) 12/22/2023 9:48 AM CDT MR NECK ANGIOGRAM WITHOUT AND WITH IV CONTRAST RAD - Routine (most inpatients and all outpatients) 12/22/2023 9:48 AM CDT MR BRAIN WITHOUT AND WITH IV CONTRAST RAD - Routine (most inpatients and all outpatients) 12/22/2023 9:40 AM CDT MAGNESIUM, S STAT 12/22/2023 5:48 AM CDT PHOSPHORUS (INORGANIC), S STAT 12/22/2023 5:48 AM CDT BASIC METABOLIC PANEL, S/P STAT 12/22/2023 5:48 AM CDT CBC WITH DIFFERENTIAL, B STAT 12/22/2023 5:[address] NEURO Routine 12/17/2023 5:[address] NEURO Routine 12/17/2023 5:05 PM CDT from Last 3 Months Results * CTA CHEST ABDOMEN PELVIS AORTIC DISSECTION W-Outside CT Body (01/26/2024 10:20 AM CDT) 01/26/2024 10:1 8 AM CDT Narrative IIMS - 01/26/2024 11:07 AM CDT This order has been created and auto-finalized to support the import of outside images. If available, original interpretation can be found on the Media Tab in Chart Review, in Document Viewer, as an image in QREADS or as an Addendum. If a re-interpretation or overread is required please follow defined workflow.?? Provider Not In System IMG CT PROCEDURES ALINE NA * EVENT MONITOR - HOSPITAL HOOKUP AT DISCHARGE (01/20/2024 1:19 AM CDT) 12/25/2023 11:3 6 AM CDT Narrative INFOBIONIC MOME - 01/23/2024 12:29 PM CDT 1. The patient was monitored from 12/25/2023 to 01/20/2024. The patient's baseline rhythm was sinus with a varying P-wave morphology. 2. PVCs were seen singly. There were 5 runs of ventricular tachycardia observed. The longest run of VT was 9 beats. The maximum rate of VT was 156 bpm. 3. PACs were seen singly and in pairs. There were 22 runs of supraventricular tachycardia observed. The longest run of SVT was 17 beats. The maximum rate of SVT was 187 bpm. 4. The patient did not report any symptomatic events. Machine Ii Coremaker: AUNG Sheffield / AUNG Lam Procedure Note Jaime Diop M.D. - 01/23/2024 1. The patient was monitored from 12/25/2023 to 01/20/2024. The patient'sbaseline rhythm was sinus with a varying P-wave morphology. 2. PVCs were seen singly. There were 5 runs of ventricular tachycardiaobserved. The longest run of VT was 9 beats. The maximum rate of VT hzf101 bpm. 3. PACs were seen singly and in pairs. There were 22 runs ofsupraventricular tachycardia observed. The longest run of SVT was 17beats. The maximum rate of SVT was 187 bpm. 4. The patient did not report any symptomatic events. Machine Ii Coremaker: AUNG Sheffield / AUNG Lam Ritchie Cosby M.D. CV CARDIAC SERVICES PROCEDURES INFOBIONIC MOMMeliza NA * (GERA) 2D WITH COLOR, LIMITED DOPPLER AND CONTRAST (12/23/2023 9:11 AM CDT) Ejection Fraction 60 [facility] Mid-Ascending Aorta 30 [facility] Anatomical Region Laterality Modality Echocardiography 12/23/2023 8:01 AM CDT Impressions 12/23/2023 10:06 AM CDT PRE-SEDATION ASSESSMENT & CONSENT (performed immediately prior to the start of the procedure): The goals, risks and alternatives to moderate sedation and the transesophageal echo were explained to the patient, questions were answered and consent was given to proceed. The physician reviewed the patient's history, medication list, allergies, and review of systems, and the findings as documented in the professor of voice and also performed a pertinent examination including a heart, airway and lung assessment. Mallampati Assessment: As documented in the RN pre-procedure assessment. Sedation plan: Transesophageal echo - moderate sedation. ASA physical status score: Class III. The patient's identity and all needed equipment were confirmed and a final confirmatory pause was performed by the team immediately prior to start. PROCEDURAL ECHO FINDINGS: Transesophageal echocardiogram performed at the request of the primary service cleaner. Adult probe inserted without difficulty. LEFT VENTRICLE:Normal left ventricular chamber size. Estimated left ventricular ejection fraction 60%. No regional wall motion abnormalities. RIGHT VENTRICLE:Normal right ventricular chamber size. Normal right ventricular systolic function. ATRIA:Mildly enlarged left atrial size by visual estimate. Dilated left atrial appendage. No left atrial appendage thrombus. Normal right atrial size by visual estimate. CARDIAC VALVES:Trileaflet aortic valve. Mildly thickened aortic valve. Aortic valve strands , degenerative, at commissure of non- and left coronary cusps, of low thromboembolic potential. Trivial aortic valve regurgitation. Mildly thickened mitral valve. Trivial mitral valve regurgitation. Mildly thickened pulmonary valve. Trivial pulmonary valve regurgitation. Normal tricuspid valve. Trivial tricuspid valve regurgitation. OTHER ECHO FINDINGS:Normal mid ascending aorta diameter of 30 mm. Diffuse moderate immobile (atheroma 3-5 mm thickness without ulceration) atherosclerosis of the descending thoracic aorta and aortic arch. Normally connected pulmonary veins. Pulmonary artery bifurcation is normal. Normal superior vena cava. Agitated saline injection(s) performed prior to administration of sedation and during sedation. No [id number] shunt at atrial level at rest or with Valsalva release. No shunt at atrial level by color flow imaging and agitated saline contrast injection. No intracardiac mass or thrombus identified. No ??pericardial effusion. PROCEDURE NOTES: Procedure performed with appropriate level of sedation. A trained independent observer assisted with monitoring the patient's level of consciousness and physiologic status throughout the procedure, see nursing documentation. The patient tolerated the sedation and procedure well and was released awake, alert, and in good condition. Transesophageal echocardiogram completed without complications. Transgastric images acquired. See Sedation Narrator or other pertinent record in Epic for additional procedure and sedation information. Physician signature for procedural medications and patient discharge when DC criteria met. For the complete report, see the Order-Level Documents. Narrative 12/23/2023 10:06 AM CDT For the complete report, see the Order-Level Documents. Hemodynamics Heart Rate: 69 BPM Blood Pressure: 113 / 79 mmHg ECG: Sinus rhythm Final Impressions 1. Diffuse moderate immobile (atheroma 3-5 mm [...] cusps, of low thromboembolic potential. 8. No ??pericardial effusion. Procedure Note Sven Kumar M.D. - 12/23/2023 For the complete report, see the Order-Level Documents. Hemodynamics Heart Rate: 69 BPM Blood Pressure: 113 / 79 mmHg ECG: Sinus rhythm Final Impressions 1. Diffuse moderate immobile (atheroma 3-5 mm thickness withoutulceration) atherosclerosis of the descending thoracic aorta and aorticarch. 2. No shunt at atrial level by color flow imaging and agitated salinecontrast injection. 3. Normal left ventricular chamber size , estimated ejection fraction 60%,no regional wall motion abnormalities. 4. Normal right ventricular chamber size and systolic function. 5. No left atrial appendage thrombus. 6. No hemodynamically significant valvular heart disease. 7. Aortic valve strands , degenerative, at commissure of non- and leftcoronary cusps, of low thromboembolic potential. 8. No pericardial effusion. Findings PRE-SEDATION ASSESSMENT & CONSENT (performed immediately prior to thestart of the procedure): The goals, risks and alternatives to moderatesedation and the transesophageal echo were explained to the patient,questions were answered and consent was given to proceed. The physicianreviewed the patient's history, medication list, allergies, and review ofsystems, and the findings as documented in the professor of voice and alsoperformed a pertinent examination including a heart, airway and lungassessment. Mallampati Assessment: As documented in the RN pre-procedureassessment. Sedation plan: Transesophageal echo - moderate sedation. ASAphysical status score: Class III. The patient's identity and all neededequipment were confirmed and a final confirmatory pause was performed bythe team immediately prior to start. PROCEDURAL ECHO FINDINGS:Transesophageal echocardiogram performed at the request of the primaryservice senior product consultant. Adult probe inserted without difficulty. LEFT VENTRICLE:Normal left ventricular chamber size. Estimated leftventricular ejection fraction 60%. No regional wall motionabnormalities. RIGHT VENTRICLE:Normal right ventricular chamber size. Normal rightventricular systolic function. ATRIA:Mildly enlarged left atrial size by visual estimate. Dilated leftatrial appendage. No left atrial appendage thrombus. Normal right atrialsize by visual estimate. CARDIAC VALVES:Trileaflet aortic valve. Mildly thickened aortic valve.Aortic valve strands , degenerative, at commissure of non- and leftcoronary cusps, of low thromboembolic potential. Trivial aortic valveregurgitation. Mildly thickened mitral valve. Trivial mitral valveregurgitation. Mildly thickened pulmonary valve. Trivial pulmonary valveregurgitation. Normal tricuspid valve. Trivial tricuspid valveregurgitation. OTHER ECHO FINDINGS:Normal mid ascending aorta diameter of 30 mm. Diffusemoderate immobile (atheroma 3-5 mm thickness without ulceration)atherosclerosis of the descending thoracic aorta and aortic arch. Normallyconnected pulmonary veins. Pulmonary artery bifurcation is normal. Normalsuperior vena cava. Agitated saline injection(s) performed prior toadministration of sedation and during sedation. No rggvl-pb-fnec shunt atatrial level at rest or with Valsalva release. No shunt at atrial level bycolor flow imaging and agitated saline contrast injection. No intracardiacmass or thrombus identified. No pericardial effusion. PROCEDURE NOTES:Procedure performed with appropriate level of sedation. A trainedindependent observer assisted with monitoring the patient's level ofconsciousness and physiologic status throughout the procedure, see nursingdocumentation. The patient tolerated the sedation and procedure well andwas released awake, alert, and in good condition. Transesophagealechocardiogram completed without complications. Transgastric imagesacquired. See Sedation Narrator or other pertinent record in Epic foradditional procedure and sedation information. Physician signature forprocedural medications and patient discharge when DC criteria met. For the complete report, see the Order-Level Documents. Ritchie Cosby M.D. CV ECHO PROCEDURES * ECG 12 Lead (12/22/2023 3:14 PM CDT) Ventricular Rate ECG/Min 77 BPM MUSE AR Interval 160 ms MUSE QRSD Interval 82 ms MUSE QT Interval 372 ms MUSE QTC Interval 420 ms MUSE P [place] 61 degrees MUSE R [place] 61 degrees MUSE T Wave [place] 54 degrees MUSE 12/22/2023 3:14 PM CDT 12/22/2023 3:17 PM CDT Impressions MUSE - 12/22/2023 3:17 PM CDT Normal sinus rhythm Normal ECG No previous ECGs available Reviewed by AUNG Salcedo Narrative Procedure Note Barrera Beckham Jr., M.D. - 12/22/2023 IMPRESSION: Normal sinus rhythm Normal ECG No previous ECGs available Reviewed by AUNG Salcedo Ritchie Cosby M.D. ECG ORDERABLES MUSE NA * Lipid Panel (12/22/2023 11:44 AM CDT) Triglycerides 126 mg/dL 12/22/2023 1:33 PM CDT DTL Comment: ----REFERENCE VALUE---- Normal: <150 mg/dL Borderline High: 150-199 mg/dL High: 200-499 mg/dL Very High: > or =500 mg/dL Cholesterol, Total 145 mg/dL 2023 1:33 PM CDT DTL Comment: ----REFERENCE VALUE---- Desirable: < 200 mg/dL Borderline High: 200 - 239 mg/dL High: > or = 240 mg/dL Cholesterol, LDL, Calculated 72 mg/dL 12/22/2023 1:33 PM CDT DTL Comment: ----REFERENCE VALUE---- Desirable: <100 mg/dL Above Desirable: 100-129 mg/dL Borderline High: 130-159 mg/dL High: 160-189 mg/dL Very High: >=190 mg/dL ----ADDITIONAL INFORMATION---- LDL cholesterol calculated using the Gill/NIH equation. Cholesterol, HDL, S 51 >=50 mg/dL 12/22/2023 1:33 PM CDT DTL Cholesterol, Non-HDL, Calculated 94 mg/dL 12/22/2023 1:33 PM CDT DTL Comment: ----REFERENCE VALUE---- Desirable: <130 mg/dL Above Desirable: 130-159 mg/dL Borderline High: 160-189 mg/dL High: 190-219 mg/dL Very High: > or =220 mg/dL Fasting (8 HR or more) Yes 12/22/2023 1:04 PM CDT DTL Blood (Blood, Venous) 12/22/2023 11:44 AM CDT 12/22/2023 1:04 PM CDT Ritchie Cosby M.D. LAB BLOOD ADD-ON [facility] [address] [place] [address], [facility] [address] [place] [address] * S-TSH (Thyroid-Stimulating Hormone - Sensitive) (12/22/2023 11:44 AM CDT) [facility] TSH, Sensitive 3.1 0.3 - 4.2 mIU/L 12/22/2023 1:33 PM CDT DTL Blood (Blood, Venous) 12/22/2023 11:44 AM CDT 12/22/2023 1:04 PM CDT Ritchie Cosby M.D. LAB BLOOD ADD-ON Performing Organization Address City/[facility] Co de Phone Number [facility] [address] [place] [address], [facility] [address] [place] [address] * (ABNORMAL) Hemoglobin A1c (12/22/2023 11:44 AM CDT) Hemoglobin A1c, B 5.7(H) 4.0 - 5.6 % 12/22/2023 1:25 PM CDT DT Comment: Hemoglobin A1c values of 5.7-6.4 percent indicate an increased risk for developing diabetes mellitus. In diabetic patients, HbA1c goals should be discussed with healthcare provider. Blood (Blood, Venous) 12/22/2023 11:44 AM CDT 12/22/2023 12:50 PM CDT Ritchie Cosby M.D. LAB BLOOD ADD-ON Performing Organization Address City/[facility]/ZIP Co de Phone Number [facility] [address] [place] [address], [facility] [address] [place] [address] * MR Neck Angiogram without and with IV Contrast (12/22/2023 9:48 AM CDT) Anatomical Region Laterality Modality Neck, Neuroradiology RST LOS , Neuroradiology ARZ LOS, Neuroradiology FLA LOS N/A Magnetic Resonance Impressions 12/22/2023 10:58 AM CDT 1. Multiple small acute subacute infarcts right frontal lobe as described. 2. Chronic intracranial on MRI brain changes as described 3. Approximately 25-30% stenosis right proximal ICA. Carotid plaque protocol is limited due to motion, although there is predominantly noncalcified atherosclerotic plaque in this region with a thin rim of peripheral calcifications. No evidence of intraplaque hemorrhage though allowing for motion. 4. Additional scattered atherosclerotic plaque in the cervical and intracranial arteries as described. Narrative 12/22/2023 10:58 AM CDT EXAM: MR BRAIN WITHOUT AND WITH IV CONTRAST, MR NECK ANGIOGRAM WITHOUT AND WITH IV CONTRAST, MR BRAIN ANGIOGRAM WITHOUT IV CONTRAST COMPARISON: Outside CT head and CTA head and neck 12/17/2023. FINDINGS: MRI HEAD: Multiple small acute and subacute infarcts right frontal lobe in a border zone distribution, including the precentral gyrus. Minimal associated low susceptibility signal along the right precentral gyrus, but no evidence of substantial associated blood product. Scattered mild leptomeningeal enhancement in right border zone sulci most likely represents intravascular enhancement related to altered blood flow. Couple additional small chronic lacunar infarcts in the adjacent right centrum semiovale. Chronic lacunar infarct left centrum semiovale. Chronic cortical infarcts left greater than right parietal lobes and left frontal lobe. Moderate changes of presumed chronic small vessel ischemia. Moderate generalized cerebral and cerebellar volume loss. Fluid left greater than right mastoid air cells. MRA HEAD: No substantial change since the prior exam. 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 Both A2 segments are supplied by the left A1 segment. Otherwise no significant stenosis or aneurysm of the major intracranial arteries. Atherosclerotic plaque both cavernous ICAs without substantial stenosis. Right vertebral artery terminates predominantly as the right PICA with a small contribution to the basilar artery. Both posterior communicating arteries are hypoplastic or absent. MRA NECK: No substantial change since the prior exam. Conventional aortic arch anatomy. Both carotid bifurcations are retropharyngeal in location. Atherosclerotic plaque both carotid bifurcations. On the right this results in moderate narrowing of the origin of the right ECA and mild (25-30%) narrowing of the ICA just distal to the bifurcation. On the left, there is mild narrowing of the distal CCA without substantial narrowing of the ICA or ECA. Mild to moderate stenosis at the origin of the right vertebral artery. Left dominant vertebral artery. The origin left vertebral artery is not well assessed on MRA but appears widely patent on the comparison CTA. Carotid plaque protocol was performed and demonstrates no evidence of substantial intraplaque hemorrhage allowing for motion. The plaque at the right carotid bifurcation is predominantly noncalcified with minimal peripheral rim of calcification. Plaque at the left carotid bifurcation is mixture Procedure Note Alan Ruby M.D. - 12/22/2023 EXAM: MR BRAIN WITHOUT AND WITH IV CONTRAST, MR NECK ANGIOGRAM WITHOUT ANDWITH IV CONTRAST, MR BRAIN ANGIOGRAM WITHOUT IV CONTRAST COMPARISON: Outside CT head and CTA head and neck 12/17/2023. FINDINGS: MRI HEAD: Multiple small acute and subacute infarcts right frontal lobe jeff border zone distribution, including the precentral gyrus. Minimalassociated low susceptibility signal along the right precentral gyrus, butno evidence of substantial associated blood product. Scattered mild leptomeningeal enhancement inright border zone sulci most likely represents intravascular enhancementrelated to altered blood flow. Couple additional small chronic lacunarinfarcts in the adjacent right centrum semiovale. Chronic lacunar infarct left centrum semiovale. Chroniccortical infarcts left greater than right parietal lobes and left frontallobe. Moderate changes of presumed chronic small vessel ischemia. Moderategeneralized cerebral and cerebellar volume loss. Fluid left greater than right mastoid air cells. MRA HEAD: No substantial change since the prior exam. 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 Both A2 segmentsare supplied by the left A1 segment. Otherwise no significant stenosis oraneurysm of the major intracranial arteries. Atherosclerotic plaque both cavernous ICAs withoutsubstantial stenosis. Right vertebral artery terminates predominantly asthe right PICA with a small contribution to the basilar artery. Bothposterior communicating arteries are hypoplastic or absent. MRA NECK: No substantial change since the prior exam. Conventional aorticarch anatomy. Both carotid bifurcations are retropharyngeal in location.Atherosclerotic plaque both carotid bifurcations. On the right thisresults in moderate narrowing of the origin of the right ECA and mild (25-30%) narrowing of the ICA just distalto the bifurcation. On the left, there is mild narrowing of the distal CCAwithout substantial narrowing of the ICA or ECA. Mild to moderate stenosisat the origin of the right vertebral artery. Left dominant vertebral artery. The origin leftvertebral artery is not well assessed on MRA but appears widely patent onthe comparison CTA. Carotid plaque protocol was performed and demonstrates no evidence ofsubstantial intraplaque hemorrhage allowing for motion. The plaque at theright carotid bifurcation is predominantly noncalcified with minimalperipheral rim of calcification. Plaque at the left carotid bifurcation is mixture IMPRESSION: 1. Multiple small acute subacute infarcts right frontal lobe asdescribed. 2. Chronic intracranial on MRI brain changes as described 3. Approximately 25-30% stenosis right proximal ICA. Carotid plaqueprotocol is limited due to motion, although there is predominantlynoncalcified atherosclerotic plaque in this region with a thin rim ofperipheral calcifications. No evidence of intraplaque hemorrhage though allowing for motion. 4. Additional scattered atherosclerotic plaque in the cervical andintracranial arteries as described. Jackie RUIZ MRI PROCEDURES * MR Brain Angiogram without IV Contrast (12/22/2023 9:48 AM CDT) Anatomical Region Laterality Modality Head, Brain, Neuroradiology RST LOS, Neuroradiology ARZ LOS, Neuroradiology FLA LOS N/A Magnetic Resonance Impressions 12/22/2023 10:58 AM CDT 1. Multiple small acute subacute infarcts right frontal lobe as described. 2. Chronic intracranial on MRI brain changes as described 3. Approximately 25-30% stenosis right proximal ICA. Carotid plaque protocol is limited due to motion, although there is predominantly noncalcified atherosclerotic plaque in this region with a thin rim of peripheral calcifications. No evidence of intraplaque hemorrhage though allowing for motion. 4. Additional scattered atherosclerotic plaque in the cervical and intracranial arteries as described. Narrative 12/22/2023 10:58 AM CDT EXAM: MR BRAIN WITHOUT AND WITH IV CONTRAST, MR NECK ANGIOGRAM WITHOUT AND WITH IV CONTRAST, MR BRAIN ANGIOGRAM WITHOUT IV CONTRAST COMPARISON: Outside CT head and CTA head and neck 12/17/2023. FINDINGS: MRI HEAD: Multiple small acute and subacute infarcts right frontal lobe in a border zone distribution, including the precentral gyrus. Minimal associated low susceptibility signal along the right precentral gyrus, but no evidence of substantial associated blood product. Scattered mild leptomeningeal enhancement in right border zone sulci most likely represents intravascular enhancement related to altered blood flow. Couple additional small chronic lacunar infarcts in the adjacent right centrum semiovale. Chronic lacunar infarct left centrum semiovale. Chronic cortical infarcts left greater than right parietal lobes and left frontal lobe. Moderate changes of presumed chronic small vessel ischemia. Moderate generalized cerebral and cerebellar volume loss. Fluid left greater than right mastoid air cells. MRA HEAD: No substantial change since the prior exam. 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 Both A2 segments are supplied by the left A1 segment. Otherwise no significant stenosis or aneurysm of the major intracranial arteries. Atherosclerotic plaque both cavernous ICAs without substantial stenosis. Right vertebral artery terminates predominantly as the right PICA with a small contribution to the basilar artery. Both posterior communicating arteries are hypoplastic or absent. MRA NECK: No substantial change since the prior exam. Conventional aortic arch anatomy. Both carotid bifurcations are retropharyngeal in location. Atherosclerotic plaque both carotid bifurcations. On the right this results in moderate narrowing of the origin of the right ECA and mild (25-30%) narrowing of the ICA just distal to the bifurcation. On the left, there is mild narrowing of the distal CCA without substantial narrowing of the ICA or ECA. Mild to moderate stenosis at the origin of the right vertebral artery. Left dominant vertebral artery. The origin left vertebral artery is not well assessed on MRA but appears widely patent on the comparison CTA. Carotid plaque protocol was performed and demonstrates no evidence of substantial intraplaque hemorrhage allowing for motion. The plaque at the right carotid bifurcation is predominantly noncalcified with minimal peripheral rim of calcification. Plaque at the left carotid bifurcation is mixture Procedure Note Alan Ruby M.D. - 12/22/2023 EXAM: MR BRAIN WITHOUT AND WITH IV CONTRAST, MR NECK ANGIOGRAM WITHOUT ANDWITH IV CONTRAST, MR BRAIN ANGIOGRAM WITHOUT IV CONTRAST COMPARISON: Outside CT head and CTA head and neck 12/17/2023. FINDINGS: MRI HEAD: Multiple small acute and subacute infarcts right frontal lobe jeff border zone distribution, including the precentral gyrus. Minimalassociated low susceptibility signal along the right precentral gyrus, butno evidence of substantial associated blood product. Scattered mild leptomeningeal enhancement inright border zone sulci most likely represents intravascular enhancementrelated to altered blood flow. Couple additional small chronic lacunarinfarcts in the adjacent right centrum semiovale. Chronic lacunar infarct left centrum semiovale. Chroniccortical infarcts left greater than right parietal lobes and left frontallobe. Moderate changes of presumed chronic small vessel ischemia. Moderategeneralized cerebral and cerebellar volume loss. Fluid left greater than right mastoid air cells. MRA HEAD: No substantial change since the prior exam. 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 Both A2 segmentsare supplied by the left A1 segment. Otherwise no significant stenosis oraneurysm of the major intracranial arteries. Atherosclerotic plaque both cavernous ICAs withoutsubstantial stenosis. Right vertebral artery terminates predominantly asthe right PICA with a small contribution to the basilar artery. Bothposterior communicating arteries are hypoplastic or absent. MRA NECK: No substantial change since the prior exam. Conventional aorticarch anatomy. Both carotid bifurcations are retropharyngeal in location.Atherosclerotic plaque both carotid bifurcations. On the right thisresults in moderate narrowing of the origin of the right ECA and mild (25-30%) narrowing of the ICA just distalto the bifurcation. On the left, there is mild narrowing of the distal CCAwithout substantial narrowing of the ICA or ECA. Mild to moderate stenosisat the origin of the right vertebral artery. Left dominant vertebral artery. The origin leftvertebral artery is not well assessed on MRA but appears widely patent onthe comparison CTA. Carotid plaque protocol was performed and demonstrates no evidence ofsubstantial intraplaque hemorrhage allowing for motion. The plaque at theright carotid bifurcation is predominantly noncalcified with minimalperipheral rim of calcification. Plaque at the left carotid bifurcation is mixture IMPRESSION: 1. Multiple small acute subacute infarcts right frontal lobe asdescribed. 2. Chronic intracranial on MRI brain changes as described 3. Approximately 25-30% stenosis right proximal ICA. Carotid plaqueprotocol is limited due to motion, although there is predominantlynoncalcified atherosclerotic plaque in this region with a thin rim ofperipheral calcifications. No evidence of intraplaque hemorrhage though allowing for motion. 4. Additional scattered atherosclerotic plaque in the cervical andintracranial arteries as described. Jackie RUIZ MRI PROCEDURES * MR Brain without and with IV Contrast (12/22/2023 9:40 AM CDT) Anatomical Region Laterality Modality Head, Brain, Neuroradiology RST LOS, Neuroradiology ARZ LOS, Neuroradiology FLA LOS N/A Magnetic Resonance Impressions 12/22/2023 10:58 AM CDT 1. Multiple small acute subacute infarcts right frontal lobe as described. 2. Chronic intracranial on MRI brain changes as described 3. Approximately 25-30% stenosis right proximal ICA. Carotid plaque protocol is limited due to motion, although there is predominantly noncalcified atherosclerotic plaque in this region with a thin rim of peripheral calcifications. No evidence of intraplaque hemorrhage though allowing for motion. 4. Additional scattered atherosclerotic plaque in the cervical and intracranial arteries as described. Narrative 12/22/2023 10:58 AM CDT EXAM: MR BRAIN WITHOUT AND WITH IV CONTRAST, MR NECK ANGIOGRAM WITHOUT AND WITH IV CONTRAST, MR BRAIN ANGIOGRAM WITHOUT IV CONTRAST COMPARISON: Outside CT head and CTA head and neck 12/17/2023. FINDINGS: MRI HEAD: Multiple small acute and subacute infarcts right frontal lobe in a border zone distribution, including the precentral gyrus. Minimal associated low susceptibility signal along the right precentral gyrus, but no evidence of substantial associated blood product. Scattered mild leptomeningeal enhancement in right border zone sulci most likely represents intravascular enhancement related to altered blood flow. Couple additional small chronic lacunar infarcts in the adjacent right centrum semiovale. Chronic lacunar infarct left centrum semiovale. Chronic cortical infarcts left greater than right parietal lobes and left frontal lobe. Moderate changes of presumed chronic small vessel ischemia. Moderate generalized cerebral and cerebellar volume loss. Fluid left greater than right mastoid air cells. MRA HEAD: No substantial change since the prior exam. 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 Both A2 segments are supplied by the left A1 segment. Otherwise no significant stenosis or aneurysm of the major intracranial arteries. Atherosclerotic plaque both cavernous ICAs without substantial stenosis. Right vertebral artery terminates predominantly as the right PICA with a small contribution to the basilar artery. Both posterior communicating arteries are hypoplastic or absent. MRA NECK: No substantial change since the prior exam. Conventional aortic arch anatomy. Both carotid bifurcations are retropharyngeal in location. Atherosclerotic plaque both carotid bifurcations. On the right this results in moderate narrowing of the origin of the right ECA and mild (25-30%) narrowing of the ICA just distal to the bifurcation. On the left, there is mild narrowing of the distal CCA without substantial narrowing of the ICA or ECA. Mild to moderate stenosis at the origin of the right vertebral artery. Left dominant vertebral artery. The origin left vertebral artery is not well assessed on MRA but appears widely patent on the comparison CTA. Carotid plaque protocol was performed and demonstrates no evidence of substantial intraplaque hemorrhage allowing for motion. The plaque at the right carotid bifurcation is predominantly noncalcified with minimal peripheral rim of calcification. Plaque at the left carotid bifurcation is mixture Procedure Note Alan Ruby M.D. - 12/22/2023 EXAM: MR BRAIN WITHOUT AND WITH IV CONTRAST, MR NECK ANGIOGRAM WITHOUT ANDWITH IV CONTRAST, MR BRAIN ANGIOGRAM WITHOUT IV CONTRAST COMPARISON: Outside CT head and CTA head and neck 12/17/2023. FINDINGS: MRI HEAD: Multiple small acute and subacute infarcts right frontal lobe jeff border zone distribution, including the precentral gyrus. Minimalassociated low susceptibility signal along the right precentral gyrus, butno evidence of substantial associated blood product. Scattered mild leptomeningeal enhancement inright border zone sulci most likely represents intravascular enhancementrelated to altered blood flow. Couple additional small chronic lacunarinfarcts in the adjacent right centrum semiovale. Chronic lacunar infarct left centrum semiovale. Chroniccortical infarcts left greater than right parietal lobes and left frontallobe. Moderate changes of presumed chronic small vessel ischemia. Moderategeneralized cerebral and cerebellar volume loss. Fluid left greater than right mastoid air cells. MRA HEAD: No substantial change since the prior exam. 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 Both A2 segmentsare supplied by the left A1 segment. Otherwise no significant stenosis oraneurysm of the major intracranial arteries. Atherosclerotic plaque both cavernous ICAs withoutsubstantial stenosis. Right vertebral artery terminates predominantly asthe right PICA with a small contribution to the basilar artery. Bothposterior communicating arteries are hypoplastic or absent. MRA NECK: No substantial change since the prior exam. Conventional aorticarch anatomy. Both carotid bifurcations are retropharyngeal in location.Atherosclerotic plaque both carotid bifurcations. On the right thisresults in moderate narrowing of the origin of the right ECA and mild (25-30%) narrowing of the ICA just distalto the bifurcation. On the left, there is mild narrowing of the distal CCAwithout substantial narrowing of the ICA or ECA. Mild to moderate stenosisat the origin of the right vertebral artery. Left dominant vertebral artery. The origin leftvertebral artery is not well assessed on MRA but appears widely patent onthe comparison CTA. Carotid plaque protocol was performed and demonstrates no evidence ofsubstantial intraplaque hemorrhage allowing for motion. The plaque at theright carotid bifurcation is predominantly noncalcified with minimalperipheral rim of calcification. Plaque at the left carotid bifurcation is mixture IMPRESSION: 1. Multiple small acute subacute infarcts right frontal lobe asdescribed. 2. Chronic intracranial on MRI brain changes as described 3. Approximately 25-30% stenosis right proximal ICA. Carotid plaqueprotocol is limited due to motion, although there is predominantlynoncalcified atherosclerotic plaque in this region with a thin rim ofperipheral calcifications. No evidence of intraplaque hemorrhage though allowing for motion. 4. Additional scattered atherosclerotic plaque in the cervical andintracranial arteries as described. Rosalina Holly APRN C.N.P. IMG MRI P ROCEDURES * CBC with Differential, Blood (12/22/2023 5:48 AM CDT) [facility] Hemoglobin 13.4 11.6 - 15.0 g/dL 12/22/2023 5:57 AM CDT ST[facility] Hematocrit 40.2 35.5 - 44.9 % 12/22/2023 5:57 AM CDT ST[facility] Erythrocytes 4.25 3.92 - 5.13 x10(12)/L 12/22/2023 5:57 AM CDT [facility] MCV 94.6 78.2 - 97.9 fL 12/22/2023 5:57 AM CDT [facility] RBC Distrib Width 13.2 12.2 - 16.1 % 12/22/2023 5:57 AM CDT [facility] Platelet Count 246 157 - 371 x10(9)/L 12/22/2023 5:57 AM CDT [facility] Leukocytes 5.3 3.4 - 9.6 x10(9)/L 12/22/2023 5:57 AM CDT [facility] Neutrophils 3.32 1.56 - 6.45 x10(9)/L 12/22/2023 5:57 AM CDT [facility] Lymphocytes 1.30 0.95 - 3.07 x10(9)/L 12/22/2023 5:57 AM CDT [facility] Monocytes 0.44 0.26 - 0.81 x10(9)/L 12/22/2023 5:57 AM CDT STMA Eosinophils 0.13 0.03 - 0.48 x10(9)/L 12/22/2023 5:57 AM CDT [facility] Basophils 0.06 0.01 - 0.08 x10(9)/L 12/22/2023 5:57 AM CDT [facility] Blood (Blood, Venous) 12/22/2023 5:48 AM CDT 12/22/2023 5:54 AM CDT Mee Ruiz M.D. LAB BLOOD ADD-ON [facility] [address] [place] [address], [facility] STMA [facility] [address] [place] [address] DHPM [facility] [address] [place] [address] * Phosphorus Inorganic (12/22/2023 5:48 AM CDT) Phosphorus (Inorganic), S 3.6 2.5 - 4.5 mg/dL 12/22/2023 6:24 AM CDT DTL Blood (Blood, Venous) 12/22/2023 5:48 AM CDT 12/22/2023 6:10 AM CDT Mee Ruiz M.D. LAB BLOOD ADD-ON Performing Organization Address City/[facility]/ZIP Co de Phone Number [facility] [address] [place] [address], [facility] DTL [facility] [address] [place] [address] * Magnesium (12/22/2023 5:48 AM CDT) Magnesium, S 2.2 1.7 - 2.3 mg/dL 12/22/2023 6:24 AM CDT DTL Blood (Blood, Venous) 12/22/2023 5:48 AM CDT 12/22/2023 6:10 AM CDT Mee Ruiz M.D. LAB BLOOD ADD-ON [facility] [address] [place] [address], [facility] DTL [facility] [address] [place] [address] * Basic Metabolic Panel (12/22/2023 5:48 AM CDT) Potassium, P 4.2 3.6 - 5.2 mmol/L 12/22/2023 6:11 AM CDT STMA Sodium, P 142 135 - 145 mmol/L 12/22/2023 6:11 AM CDT [facility] Chloride, P 106 98 - 107 mmol/L 12/22/2023 6:11 AM CDT [facility] Bicarbonate, P 23 22 - 29 mmol/L 12/22/2023 6:11 AM CDT [facility] Anion Gap, P 13 7 - 15 12/22/2023 6:11 AM CDT [facility] BUN (Blood Urea Nitrogen), P 17 6 - 21 mg/dL 12/22/2023 6:11 AM CDT [facility] Creatinine 0.81 0.59 - 1.04 mg/dL 12/22/2023 6:11 AM CDT STMA Estimated GFR (eGFR) 72 >=60 mL/min/BSA 12/22/2023 6:11 AM CDT [facility]MA Comment: Estimated GFR calculated using the 2020 CKD_EPI creatinine equation. Calcium, Total, P 9.4 8.8 - 10.2 mg/dL 12/22/2023 6:11 AM CDT STMA Glucose, P 119 70 - 140 mg/dL 12/22/2023 6:11 AM CDT STMA Blood (Blood, Venous) 12/22/2023 5:48 AM CDT 12/22/2023 5:54 AM CDT Mee Ruiz M.D. LAB BLOOD ADD-ON [facility] [address] [place] [address], [facility] STMA [facility] [address] [place] [address] * CT ANGIO HEAD NECK CAROTID STROKE PROTOCOL IZAIAH CANDIDAT-Outside CT Neuro (12/17/2023 5:10 PM CDT) Only the most recent of2 resultswithin the time period is included. Narrative [facility] - 12/22/2023 7:40 AM CDT This order has been created and auto-finalized to support the import of outside images. If available, original interpretation can be found on the Media Tab in Chart Review, in Document Viewer, or as an image in QREADS. If a re-interpretation or overread is required please follow defined workflow. ?? Provider Not In System IMG CT PROCEDURES [facility] NA from Last 3 Months Advance Directives For more information, please contact: [phone] * Full Code (Latest Code Status on File) Date Activated Date Inactivated Comments 12/25/2023 1:34 PM 01/01/2024 3:14 PM Question Answer Comments Full Code: Discussed * Full Code Date Activated Date Inactivated Comments 12/22/2023 11:08 PM 12/25/2023 1:18 PM Question Answer Comments Full Code: Discussed * Full Code Date Activated Date Inactivated Comments 12/17/2021 2:23 PM 12/18/2021 4:24 PM Question Answer Comments Full Code: Discussed * Full Code Date Activated Date Inactivated Comments 12/17/2021 5:44 AM 12/17/2021 2:23 PM Question Answer Comments Full Code: Not Discussed Due to: Not medically appropriate Care Teams Business Process Associate Relationship Specialty Start Date End Date Elsewhere, Pcp PCP - General Family Medicine 06/04/21
--- OUTSIDE RECORDS SUMMARY | 2024-02-26 15:57 | XMS_ITS | Encounter Summary ---
Author Organization [facility] Address [address] [place] [address] Care Team Providers Care Electrician Ship Name Role Phone Elsewhere, Pcp Primary Care Provider Unavailabl e Reason for Referral * Medication Prior Authorization - Authorized Specialty Diagnoses / Procedures Referred By Darin mullen Referred To Contact Millie Peoples D.O. [address] [place] [address] Referral ID Status Reason Start Date Expiration Date V isits Requested Visits Authorized [id number] Authorized 10/01/2023 12/29/2024 1 1 * Physical Therapy (Routine) - Closed Specialty Diagnoses / Procedures Referred By Darin mullen Referred To Contact Diagnoses Stroke (HCC) Procedures PMR Brain rehabilitation program (PMR Internal) Xiomara Clemens D.O. [address] [place] [phone] [facility] Referral ID Status Reason Start Date Expiration Date Visits Re quested Visits Authorized [id number] Closed 12/28/2023 12/27/2024 1 1 * Outpatient (Routine) - Authorized Specialty Diagnoses / Procedures Referred By Darin mullen Referred To Contact Diagnoses Stroke (HCC) Xiomara Clemens D.O. [address] [place] [phone] Referral ID Status Reason Start Date Expiration Date Visits Requested Visits Authorized [id number] Authorized Patient Preference 12/28/2023 06/28/2025 1 1 * Physical Therapy (Routine) - Authorized Specialty Diagnoses / Procedures Referred By Darin mullen Referred To Contact Diagnoses Stroke (HCC) Xiomara Clemens D.O. [address] [place] [phone] Referral ID Status Reason Start Date Expiration Date Visits Requested Visits Authorized [id number] Authorized Patient Preference 12/28/2023 06/28/2025 1 1 Reason for Visit * Auth/Cert (Routine) Specialty Diagnoses / Procedures Referred By Darin mullen Referred To Contact Diagnoses Cerebral infarction, unspecified (HCC) Procedures ADMIT TO INPATIENT REHAB Referral ID Status Reason Start Date Expiration Date Visits Re quested Visits Authorized [id number] 1 1 Encounter Details Date Type Department Care Team (Latest Contact Info) Description 12/25/2023 1:18 PM CDT - 01/01/2024 1:08 PM CDT Hospital Encounter [facility], [facility], Fourth Floor [address] [place] [phone] Justin Melendez D.O., M.S. [address] [place] [phone] Elizabeth Doss M.D. [address] [place] [phone] Arian Ruiz M.D. [address] [place] [phone] Mary Fuller M.D. [address] [place] [phone] Stroke (HCC) [I63.9] (Primary Dx); Lack Of Coordination [R27.9]; Stroke (HCC); Weakness Muscle Discharge Disposition: Home or Self Care Social History Tobacco Use Types Packs/Day Years Used Date Smoking Tobacco: Never Smokeless Tobacco: Never Alcohol Use Standard Drinks/Week Comments Yes 7 (1 standard drink = 0.6 oz pur e alcohol) Daily caffeine [facility] Utilities Answer Date Recorded In the past 12 months has th e [employer], gas, oil, or water Sports[employer]ws threatened to shut off services in your home? No 12/29/2023 Humiliation, Afraid, Rape, and Kick questionnair e [...] often do you attend chur ch or restorationist services? More than 4 times per year 09/27/2022 Do you belong to any clubs o r organizations such as tenriism groups, unions, fraternal or athletic groups, or [...] PHQ-2 Answer Date Recorded PHQ-2 Score 0 12/31/2023 [facility] - Occupational Stress Questionnaire Answer Date Recorded [...] the money to buy more. Never true 12/29/19 Within the past 12 months, t he food you bought just didn't last and you didn't have money to get more. Never true 12/29/2023 PRAPARE - Transportation Answer Date Re corded In the past 12 months, has l ack of transportation kept you from medical appointments or from getting medications? No 12/09 In the past 12 months, has l ack of transportation kept you from meetings, work, or from getting things needed for daily living? No 01/01/2024 Depression Answer Date Recor ded PHQ-9 Total Score (max 27) 0 12/30 Nutrition Answer Date Recorded On average, how many serving s of fruits and vegetables do you eat per day (serving size is equal to 1 cup or approximately the size of a tennis ball)? 4-5 09/27/2022 Dental Answer Date Recorded Dental: Regular Dentist Yes 08/13/19 Employment Answer Date Recorded Employment status Retired 09/27/2022 Housing Stability Answer Date Recorded What is your living situation today? I have a [facility] to live 12/29/2023 Education Answer Date Recorded What is the highest level of school you have completed or the highest degree you have received? Associate degree: occupational, technical, or vocational program 09/27/2022 Sex and Gender Information Value Date Recorded Sex Assigned at Female 06/28/2018 10:53 AM [employer]AD FLIPPER Gender Identity Female 06/28/2018 10:53 AM BEAD FLIPPER Sexual Orientation Straight 06/28/2018 10 :53 AM BEAD FLIPPER documented as of this encounter Last Filed Vital Signs Vital Sign Reading Time Taken Comments Blood Pressure 148/64 01/01/2024 12:40 PM CDT Pulse 85 01/01/2024 12:40 PM CDT Temperature 36.2 ??C (97.2 ??F) 01/01/2024 12:40 PM C DT Respiratory Rate 16 01/01/2024 12:40 PM CDT Oxygen Saturation 97% 01/01/2024 12:40 PM CDT Inhaled Oxygen Concentration - - Weight 69.4 kg (153 lb) 12/30/2023 1:41 AM CDT Height 157.5 cm (5' 2) 12/25/2023 1:35 PM CDT Body Mass Index 27.98 12/25/2023 1:35 PM CDT documented in this encounter Discharge Summaries * Millie Peoples D.O. - 01/01/2024 1:08 PM CDT REHABILITATION DISCHARGE SUMMARY BRIEF OVERVIEW Hospital: [facility] Discharge Provider: Arian Ruiz M.D. 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 All medication changes should be reviewed. You and your primary care provider should determine ongoing treatment as medication refills and additional therapy prescriptions will be at the discretion of your primary care provider (we will not provide medication refills or therapy renewals). Please take a copy of this dismissal summary with you to your primary care physician follow up appointment. Please see AVS for a list of scheduled follow-up appointments and medication instructions. It is unsafe for you to drive at this point. You will need to follow up with your Primary Care and Brain Rehab provider to determine when it will be safe for you to drive again. Bowel and bladder management: Please take MiraLAX or Senna as needed for daily bowel movements. Pain: Please take 650 mg of acetaminophen every 4-6 hours as needed for pain. Do not take more than4,000 mg in a 24 hour period. PROVIDER RECOMMENDATIONS: 1) She will take aspirin 81 mg daily and Brilinta 90 mg twice daily for 30 days (End date 01/22/2024) . Asprin will continue indefinitely. 2) She had some anxiety that responded well to PRN hydroxyzine. Follow Up: Please follow up with your primary care provider within 7 to 10 days of discharge (appointment madeand shown in After Visit Summary). Please have the heart rhythm monitoring device on for 30 days. Follow up with [facility] in 1 month, at which time you will be meeting with one of the stroke neurologists during this visit. Medication Change: Continue taking aspirin 81 mg, indefinitely. Stop taking Plavix 75 mg. Start taking Brilinta (ticagrelor) 90 mg twice daily for a total of 30 days, stop date 01/22/2024. This replaces the role of Plavix. Continue taking rosuvastatin 20 mg daily. Continue taking the rest of the home medications as is. OUTPATIENT FOLLOW UP Scheduled Appointments 01/27/2024 8:30 AM [facility]; [facility] Neurology 02/05/2024 2:00 PM Nelli Reyes, TATUM, CALL CENTER PROFESSIONAL, M.S.; REYNA [id number] PMR Physical Medicine and Rehabilitation For appointment details refer to your Patient Appointment Guide. TEST RESULTS PENDING AT DISCHARGE Pending Labs None DETAILS OF HOSPITAL STAY REASON FOR ADMISSION HOSPITAL COURSE PRE-REHABILITATION COURSE: In summary, Mrs. Latonya Gordon is an 83-year-old, right-hand dominant female from [place], [place]. Her medical history includes hypertension, hyperlipidemia, chronic pain and right MCA territory infarcts sustained in November 2023. She presented to the Emergency Department on December 16 with acute worsening of left hemiparesis found to have acute ischemia in the right MCA distribution. She is being admitted to the inpatient brain rehabilitation service with functional goals related to increasing strength of the left side and independence with ADLs. In summary, Mrs. Gordon had acute onset of left upper extremity weakness on November 19. She was evaluated at the [place] [facility] initially with a reportedly negative head CT. She presented again to the [facility] on November 24 after developing sudden worsening of left upperextremity weakness. She was admitted locally from November 24 - November 26 with MRI demonstrating infarct of the right precentral gyrus, multiple small foci of diffusion restriction in the right frontal deep white matter and parietal cortex representing acute infarction, and chronic left post central gyrus, parietal and deep white matter infarctions. Additional stroke workup included, CT angiogramhead and neck demonstrating moderate possible right ICA stenosis, TTE with ejection fraction 60-65%without comment on the left atrial or appendageal size or intracardiac thrombus. She was dischargedhome on dual antiplatelet therapy with aspirin 81 mg and clopidogrel 75 mg daily. Her left upper extremity strength was gradually improving. However, on December 16, she had sudden onset of left lower extremity weakness with worsening of her left upper extremity weakness. She [facility] Department where she was found to have new right MCA territory stroke concerning symptomatic carotid stenosis. She wassubsequently admitted to the neurology stroke and cerebrovascular disease service. Extensive strokeworkup was performed as follows: MRI without contrast on 12/21 revealed acute right MCA territory infarct including the right precentral gyrus MR angiogram of head and neck which showed 25-30% stenosis of right proximal ICA with predominantlynoncalcified atherosclerotic plaque in this region with a thin rim of peripheral calcification. No evidence of intra plaque hemorrhage, this study was limited by motion artifact. GERA which showed diffuse moderate immobile atheroma measuring 3-5 mm thickness with the ulceration of the descending thoracic aorta and aortic arch. There was no left atrial dilatation or left appendageal thrombus. Laboratory evaluation revealed normal thyroid function, hemoglobin A1c of 5.7% and lipid panel within total cholesterol 145, LDL 72, and HDL 51. Stroke mechanism is felt to be athero-embolic from her diffuse aortic arch atheroma. She has had extensive left MCA territorial infarcts as well as new right MCA territorial infarcts in the past 2 months. Cardioembolic etiology remains on the differential despite absence of a dilatation or intracardiac thrombus. Ongoing workup includes 30-day heart monitor to rule out atrial fibrillation. Despiteher compliance with taking aspirin and Plavix, she had a new right MCA territory stroke. As a result, she was transitioned to Brilinta [address] daily in place of Plavix with continued daily aspirin for a 30-day course. REHABILITATION COURSE: The patient was admitted to inpatient rehab on 12/25/23. The patient underwent comprehensive interdisciplinary inpatient rehabilitation with physical therapy, occupational therapy, speech therapy, recreational therapy, rehab psychology, rehab nursing, medical healthcare social worker, and project development manager. For updated functional status and ongoing therapy recommendations, please see below under Instructions for Ongoing Care. The patient made excellent progress and met criteria to be dismissed from inpatientrehabilitation. During her rehabilitation stay her anxiety was controlled with Atarax. For anticoagulation she was controlled on aspirin 81 mg and Brilinta 90 mg twice daily for 30 days (End date 01/22/2024). She progress with therapies to become supervision/setup before ADLs. And able to ambulate 48.8 m X2with a front wheeled walker and supervision. DISCHARGE PHYSICAL EXAM: GENERAL: Alert. No acute distress. HEENT: Normocephalic, atraumatic. Oral cavity and tongue are unremarkable. MUSCULOSKELETAL EXAM: EXTREMITIES: No swelling or erythema. No calf tenderness. Passive range of motion is functionally normal. SKIN: Exposed areas of skin are clean, dry, and intact with no evidence of cellulitis, pressure ulcers, or necrosis. CRANIAL NERVES: II: Visual crowley full in all quadrants. Pupils equal, round, and reactive to light III, IV, : Extraocular movements intact. No nystagmus. No ptosis. No dysconjugate gaze. VII: Symmetric smile. No facial droop. VIII: Hearing to fingers rubbing together intact bilaterally IX, X: Symmetric palate movements XI: Shoulder shrug intact and symmetric XII: Tongue protrudes midline SPEECH/LANGUAGE: Grossly normal. MUSCLE STRENGTH: (PINA scale: 5=normal to 0=plegic; right/left) -C5 (elbow flexors): 5/4 -C6 (wrist extensors): 5/5 -C7 (elbow extensors): 5/ -C8 (flexion of middle finger DIP): / -T1 (little finger abduction): / -L2 (hip flexors): / -L3 (knee extensors): 12/12 -L4 (ankle dorsiflexors): 12/12 -L5 (long toe extensors): / -S1 (ankle plantar flexors): 12/11 TONE: Normal tone throughout upper and lower limbs. SENSATION: Globally intact. SATELLITE SIGN: Positive on the left CONSULTS ORDERED THIS ADMISSION IP CONSULT TO CARE MANAGEMENT IP CONSULT TO RECREATIONAL THERAPY IP CONSULT TO PSYCHIATRY & PSYCHOLOGY CONDITION AT DISCHARGE improved Discharge instructions were provided to the patient and caregiver(s). Total time spent in discharge services today: ___20____ minutes. documented in this encounter Discharge Instructions * Appointments* Jessie Loyola R.N., CRRN - 12/30/2023 8:28 AM CDT Outpatient PT and OT [facility] [address] [facility] They will contact you to schedule appointments. Post Hospital Follow Up: January 06 at 9:[address] Vaishali Baeza MD [address] [place] [address] * Attachments The following attachments cannot be sent through Care Everywhere. * Aspirin (By mouth) (Austrian) * Hydroxyzine (By mouth) (Austrian) documented in this encounter Medications at Time of Discharge Medication Sig Dispensed Refills Start Date End Date acetaminophen (TYLENOL) 500 mg tablet Take 2 tablets (1,000 mg total) by mouth every 6 (six) hours as needed for mild pain or score 1-3 of 10 or moderate pain or score 4-6 of 10. 12/29/2023 albuterol 90 mcg/actuation inhaler Inhale 2 puffs every 4 (four) hours as needed for shortness of breath. 02/26/2021 aspirin 81 mg chewable tablet Chew 1 tablet (81 mg total) daily. 12/30/2023 calcium carbonate-vitamin D3 200 mg (500 mg) -400 unit capsule Take 2 tablets by mouth at bedtime. 05/05/2017 cholecalciferol (VITAMIN D3) 50 mcg (2,000 Unit) capsule Take 50 mcg by mouth daily. 05/05/2017 co-enzyme Q-10 (CO Q-10) 100 mg capsule Take 100 mg by mouth daily. hydrOXYzine (ATARAX) 25 mg tablet Take 1 tablet (25 mg total) by mouth every 8 (eight) hours as needed for anxiety. 15 tablet 12/29/2023 Lactobacillus rhamnosus GG (CULTURELLE) 10 billion cell capsule Take 1 capsule by mouth daily. 05/05/2017 losartan (COZAAR) 50 mg tablet Take 50 mg by mouth at bedtime. 05/05/2017 oxyCODONE (ROXICODONE) 5 mg immediate release tablet Take 1 tablet by mouth at bedtime. 11/26/2023 rosuvastatin calcium (ROSUVASTATIN ORAL) Take 20 mg by mouth daily. 11/25/2023 Yuvafem 10 mcg vaginal tablet Insert 10 mcg into the vagina 3 (three) times a week. 04/06/2021 ticagrelor (BRILINTA) 90 mg tablet Take 1 tablet (90 mg total) by mouth 2 (two) times a day for 24 days. 48 tablet 12/29/2023 01/22/2024 documented as of this encounter Progress Notes * Kristy Silva - 01/01/2024 1:08 PM CDT Occupational Therapy Rehabilitation [facility] Inpatient Progress Note SUBJECTIVE Patient's Name: Latonya Gordon Reason for Referral: OT Eval & Treat- IRF Medical Diagnosis: 1. Stroke (HCC) [I63.9] 2. Lack Of Coordination [R27.9] 3. Stroke (HCC) 4. 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 She describes these migraines as lasting no more than 10 minutes, relieved by lying down and sometimes occurring in the R side. Furthermore, she experiences fluttery vision which she describes a zig-zag pattern in her vision. This time the migraine did not resolve within 10 minutes and she noticed L arm and hand tingling, numbness and weakness that got worse overtime. On 11/21/23, pt went to [facility] and had a CT scan which did not identify a stroke. She was discharged home the same day but her symptoms did not improve. On 11/25/23, pt described her arm going numb suddenly while having lunch. She also describes face numbness on her left tongue and cheek that intermittently resolved. The same day she had an appointment with her family doctor, who arranged emergency transportation [place] [facility] [place]. [place] her L upper extremity hemiparesis recovered almost back to normal. On 12/17/23, pt noted weakness and numbness in her L lower extremity when exiting her vehicle. She describes her movement as her leg dragging on the ground and felt her leg buckle. At this point, the Lupper extremity was mostly back to baseline with mild numbness. The numbness in her face occurred in termittently. Following this event she went to [facility]'s ED. After being evaluated by [facility]'s ED, she was discharged home. She describes being able to walk with a cane. Over the following day the symptoms in her left lower extremity worsened. On 12/21/23, her left lower extremity felt so weak and numb that she could not walk from her bed to her bathroom. On 12/22/23, she [facility] [place] [facility]. Stroke etiology is still unclear but include symptomatic carotid stenosis and cardioembolic. Patient had CT angiogram and MR angiogram of head and neck which showed 25-30% stenosis of right proximal ICA with a thin rim of peripheral calcification. Now admitted to IRF 5/18for further progression of therapeutic goals. Onset Date: 12/22/23 Patient/Caregiver Goals: Return home safely with assistance of . Patient Comments: Patient verbally agreed to therapy and treatment plan Precautions Other Precautions: Fall Risk. L hemiparesis (leg>arm). Fall Risk (65 and older) Fall in the last 12 months: No Fall Risk Comments: Instability. L lower extremity weakness. OBJECTIVE Pain: 0/10 Sit to Stand Transfers # of Assistants: 1 Transfer Surface: Bed, Chair, Toilet/Commode Transfer Equipment: Gait belt, Front wheeled walker Level of Assistance: Modified Independent Assessment/Delivery: Assessed Stand to Sit Transfers # of Assistants: 1 Transfer Surface: Chair, Wheelchair, Toilet/Commode Transfer Equipment: Gait belt, Front wheeled walker Level of Assistance: Modified independent Assessment/Delivery: Assessed Bed, Chair, Wheelchair Transfers # of Assistants: 1 Transfer Surface: Bed Transfer Approach: From, Ambulating Transfer Equipment: Front wheeled walker Level of Assistance: Modified Independent Assessment/Delivery: Assessed Comments: Patient performed sit to stand after bed mobility to go to the bathroom Toilet Transfers # of Assistants: 1 Transfer Surface: Toilet Transfer Approach: To and from, Ambulating Transfer Equipment: Front wheeled walker Level of Assistance: Supervision/set-up Assessment/Delivery: Assessed Team Conference Updates: Additional Team Conference Comments (OT): Completing ADLs with supervision- modified independence, mainly using front wheeled walker. Educated on use of figure four and use of adaptive equipment for lower body dressing, if needed. Completed bathroom safety education and shower transfers with spouse,and both have demonstrated safe completion and understanding. Will continue return to driving in outpatient therapy. Recommended equipment included a standard shower chair and walker basket, which patient reports she may already own. Quality Indicators: Repetition of Three Words (First Attempt): 3 Temporal Orientation: Year: Correct Temporal Orientation: Month: Accurate within 5 days Temporal Orientation: Day: Correct Recall: Sock: Yes, no cue required Recall: Blue: Yes, no cue required Recall: Bed: Yes, no cue required BIMS Summary Score: 15 Hearing, Speech, and Vision Ability to Hear: Adequate (with or without hearing aids is functional) Ability to See in Adequate Light: Adequate Expression of Ideas and Wants: Without difficulty Understanding Verbal and Non-Verbal Content: Understands Eating Assistance Needed: Independent Physical Assistance Level: No physical assistance CARE Score - Eatin Oral Hygiene Assistance Needed: Independent Physical Assistance Level: No physical assistance Comment: (Completes oral care and other grooming tasks standing at sink using front wheeled walker.) CARE Score - Oral Hygiene: 6 Toileting Hygiene Assistance Needed: Incidental touching, Supervision Physical Assistance Level: No physical assistance Comment: Performed hygiene seated on toilet, and completes clothing management (mainly donning vs doffing) with incidental touching/ supervision CARE Score - Toileting Hygiene: 4 Shower/Bathe Self Assistance Needed: Supervision, Incidental touching Physical Assistance Level: No physical assistance Comment: Able to wash self appropriately, no assistance to wash or dry. In standing, provided contact guard/incidental touching for stability CARE Score - Shower/Bathe Self: 4 Upper Body Dressing Assistance Needed: Set-up / clean-up, Adaptive equipment Physical Assistance Level: No physical assistance Comment: Patient able to retrieve clothes from closet and therapist placed clothes near dressing location. Able to don bra and overhead shirt with no physical assistance. CARE Score - Upper Body Dressin Lower Body Dressing Assistance Needed: Set-up / clean-up, Incidental touching, Supervision Physical Assistance Level: 25% or less Comment: Able to use head bookkeeper to don underwear, but also able to achieve figure four positioning to don pants. In standing, requires incidental touching asisstance for stability and safety. CARE Score - Lower Body Dressin Putting On/Taking Off Footwear Assistance Needed: Set-up / clean-up, Incidental touching Physical Assistance Level: No physical assistance Comment: Patient sometimes requires increased time to don left slip-on shoe when placed in front ofher. Previously educated on use of sock aid, if needed, but reports not wearing socks with her shoes often. Also educated on use of shoe horn, if needed, but patient was able to achieve today withoutuse of AE. CARE Score - Putting On/Taking Off Footwear: 4 Toilet Transfer Assistance Needed: Adaptive equipment, Supervision Physical Assistance Level: No physical assistance Comment: Patient able to use one side of toilet safety frame to simulate countertop/ vanity in homeenvironment to utilize when transferring to and from toilet. CARE Score - Toilet Transfer: 4 Hand Testing: Right Hand Left Hand Delivery Consultant Handle Setting 2 - Score 1 (kg): 16 kg Handle Setting 2 - Score 2 (kg): 16 kg Handle Setting 2 - Score 3 (kg): 15 kg Handle Setting 2 - Final Score (kg): 15.67 kg Handle Setting 2 - Score 1 (kg): 13 kg Handle Setting 2 - Score 2 (kg): 14 kg Handle Setting 2 - Score 3 (kg): 12 kg Handle Setting - Score Final (kg): 13 kg At the end of today's therapy session patient was left seated in a wheelchair with an appropriate call light within reach. Patient's needs and questions addressed during today's session. Assessment Patient demonstrated good participation in today's treatment session on 01/01/24. She is completing ADLs with supervision-modified independence, but overall demonstrates safe practices with all ADLs. No significant differences noted in left and right hand strength, and patient is able to integrate use of left upper extremity in functional tasks appropriately. Would continue to benefit from outpatient therapy to address goals of returning to driving and taking baths in her tub, which she did not feel comfortable addressing in IPR. Patient is performing below functional baseline and requires skilled OT to address listed deficits and optimize safety and independence with activities of daily living and instrumental activities of daily living for dismissal to home. Barriers to Discharge Home: Current functional status, Fall risk, Safety concerns Personal Factors: Balance impairment, Hearing impairment, Needs assistive device, Safety awareness Discharge Therapy Needs - OT: Ongoing skilled occupational therapy Level of Care Needed - OT: Assistance with toileting, Assistance with toilet/shower transfers, Assistance with medication set up/administration, Assistance with showering/bathing, Assistance with peoplesoft financial developer, Assistance with meal preparation, Assistance with dressing, Assistance with eating/feeding, Assistance with transportation, Assistance with housekeeping, Assistance with shopping, Physical assistance needed Recommended Adaptive Equipment - OT: Other (Comment) (ongoing assessment) Functional Goals and Timeframes: OT Goal #1: By next ITC, pt will complete full grooming routine standing with contact guard assistance in order to promote increased independence in ADL/IADL tasks. OT Goal #1 Status: Achieved (12/31: able to achieve, and demonstrated knowledge of knowing when to sit and take a break when doing longer tasks, such as haircare) OT Goal #2: New OT Goal: By next ITC, patient will demonstrate appropriate use of adaptive equipment/strategies to complete dressing routine with modified independence. OT Goal #2 Status: Achieved OT Goal #3: New OT Goal: By discharge, patient will demonstrate the ability to engage in return to driving tasks independently. OT Goal #3 Status: Ongoing (12/31: continue to address in outpatient) OT Goal #4: By discharge, pt will demonstrate understanding regarding recommended equipment, strategies and level of assist needed in order to promote increased independence in ADL/IADL tasks. OT Goal #4 Status: Ongoing (12/31: able to demonstrate, but would like to ensure carryover to outpatient OT) Progress: Progressing toward goals Plan Patient agrees with the plan of care and goals. Treatment Plan: OT Frequency: 5 times per week OT Amount: 2 visits per day Plan: Discontinue OT OT Plan Comments: continue with outpatient OT Treatment interventions may include: Treatment Interventions: Therapeutic exercise, Therapeutic functional activity, Neuromuscular re-education, Self-care/home management, Cognitive skills training, Therapeutic modalities as needed Time Spent with Patient Therapeutic Interventions Home Management Training (min): 50 min Therapeutic Exercise (min): 10 min Time Tracking Total Timed Units (min): 60 min Total Treatment Time (min): 60 min OT Individual: 60 Minutes JOSE Priest Associated attestation - Debra Torres M.S., Ian BrayTGui - 01/05/2024 1:00 PM CDT This therapist has reviewed all documentation and supervised today???s session. The therapist agrees with the plan developed in collaboration with the patient. * Marge Birch P.T., M.H.A. - 01/01/2024 1:08 PM CDT [facility] SUBJECTIVE Patient's Name: Latonya Gordon Reason for Referral: Inpatient Rehab Facility Physical Therapy Eval & Treat; [facility] Medical Diagnosis: 1. Stroke (HCC) [I63.9] 2. Lack Of Coordination [R27.9] 3. Stroke (HCC) 4. 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 She describes these migraines as lasting no more than 10 minutes, relieved by lying down and sometimes occurring in the R side. Furthermore, she experiences fluttery vision which she describes a zig-zag pattern in her vision. This time the migraine did not resolve within 10 minutes and she noticed L arm and hand tingling, numbness and weakness that got worse overtime. On 11/21/23, pt went to [facility] and had a CT scan which did not identify a stroke. She was discharged home the same day but her symptoms did not improve. On 11/25/23, pt described her arm going numb suddenly while having lunch. She also describes face numbness on her left tongue and cheek that intermittently resolved. The same day she had an appointment with her family doctor, who arranged emergency transportation [place] [facility] [place]. [place] her L upper extremity hemiparesis recovered almost back to normal. On 12/17/23, pt noted weakness and numbness in her L lower extremity when exiting her vehicle. She describes her movement as her leg dragging on the ground and felt her leg buckle. At this point, the Lupper extremity was mostly back to baseline with mild numbness. The numbness in her face occurred in termittently. Following this event she went to [facility]'s ED. After being evaluated by [facility]'s ED, she was discharged home. She describes being able to walk with a cane. Over the following day the symptoms in her left lower extremity worsened. On 12/21/23, her left lower extremity felt so weak and numb that she could not walk from her bed to her bathroom. On 12/22/23, [facility] [place] [facility]. Stroke etiology is still unclear but include symptomatic carotid stenosis and cardioembolic. Patient had CT angiogram and MR angiogram of head and neck which showed 25-30% stenosis of right proximal ICA with a thin rim of peripheral calcification. Now admitted to IRF 5/18for further progression of therapeutic goals. Onset Date: 12/22/23 OBJECTIVE Reviewed patient's home exercise program with patient and spouse; verbally reviewed technique for stairs with patient and spouse; answered/clarified all patient questions specific to PT interventionsduring course of inpatient rehab stay and anticipated goals for continuation of PT in the outpatient setting. Patient/Family Education: As above; patient had no further questions at completion of PT visit Education Provided to: Latonya and spouse gym Learner's Response: Able to teach back At the end of today's therapy session patient was left seated in bedside chair with an appropriate call light within reach. Patient's needs and questions addressed during today's session. Assessment Patient has made good gains during this rehab stay. She will continue to benefit from outpatient therapy, following discharge home today, to continue to progress functional ambulation, lower extremity strength, standing balance for static and dynamic activities, to further maximize independent mobility for community level distances and progress assistive device, as able Plan Patient agrees with the plan of care and goals. Treatment Plan: N/A Time Spent with Patient 25 mins - Ther Activity Marge Birch P.T., M.H.A. * Arian Ruiz M.D. - 01/01/2024 11:33 AM CDT Physical Medicine and Rehabilitation Interdisciplinary Team Conference [facility] 01/01/2024 11:35 AM CDT Patient Name: Latonya Gordon Admit Date/Time: 12/25/2023 1:18 PM Date of : 1940 Sex: Female Room/Bed: 331/331-P Etiologic Diagnosis: Stroke (HCC) Impairment Group: Stroke Payor: Payor: [facility] / Plan: [employer] [place] [employer]AN PPO / Product Type: PPO / Anticipated Discharge Date: 01/01/24 Rehab Team Conference Participation Physician Electrician Ship: Dr. Arian Ruiz Senior Resident Present: Dr. Xiomara Clemens Nursing Electrician Ship: Ale Leon RN CM/SW Electrician Ship: Abida Harrison RN CM/SW Second Electrician Ship: Мария Odonnell [facility] PT Electrician Ship: Marge Birch PT OT Electrician Ship: VICKY Calix/JOSE Priest Other (Discipline and Name): Dr. Marlee Montgomery Rehab Psychologist Present: . OT Goal #1: By next ITC, pt will complete full grooming routine standing with contact guard assistance in order to promote increased independence in ADL/IADL tasks. OT Goal #2: New OT Goal: By next ITC, patient will demonstrate appropriate use of adaptive equipment/strategies to complete dressing routine with modified independence. OT Goal #3: New OT Goal: By discharge, patient will demonstrate the ability to engage in return to driving tasks independently. OT Goal #4: By discharge, pt will demonstrate understanding regarding recommended equipment, strategies and level of assist needed in order to promote increased independence in ADL/IADL tasks. PT Goal #1: STG: Patient will ambulate with a front wheel walker with contact guard assistance for at least 75 m. PT Goal #2: STG: Patient well negotiate 8 steps using bilateral railings with contact guard assistance in a reciprocal pattern. PT Goal #3: LTG: Patient will ambulate household distances with least restrictive assistive device with supervision to promote a safe discharge. PT Goal #4: LTG: Patient will ambulate a flight of stairs using a hand rail with standby assistanceto promote a safe discharge. Progress Toward Goals Additional Team Conference Comments (RN): A&Ox3, tolerating regular diet, continent of bladder and bowel, x1 GB/walker Additional Team Conference Comments (PT): Pt demonstrating independent bed mobility, mod-I with trnasfers, mod-I for household ambulation and supervised for stairs w/ hurrycane & rail. Pt will benefit from OP PT for continued strengthening and progressive ambulation. Education Provided (PT): Stroke rehabilitation. homegoing needs, HEP and d/c planning. Additional Team Conference Comments (OT): Completing ADLs with supervision- modified independence, mainly using front wheeled walker. Educated on use of figure four and use of adaptive equipment for lower body dressing, if needed. Completed bathroom safety education and shower transfers with spouse,and both have demonstrated safe completion and understanding. Will continue return to driving in outpatient therapy. Recommended equipment included a standard shower chair and walker basket, which patient reports she may already own. Education Provided (OT): role of OT, goals of therapy, activity modifications Discharge Equipment Recommended Adaptive Equipment - OT: Shower chair with back Equipment Recommended - PT: Front-wheeled walker Equipment Vendor - PT: to be determined Patient / Family Goals The goals from interdisciplinary conference were discussed with patient, family. Discharge Planning Discharge Planning (Team Conference) Barriers To Discharge: Equipment, Caregiver training/education, Comorbidities Strengths: Premorbid level of function, Support of immediate family, Attitude of family, Ability toacquire knowledge, Adaptive/Assistive products Anticipated Discharge Destination: Home or Self Care Assistance Recommended after Discharge: Other (Comment) Discharged Living With: Family and or relatives Support Systems: Family members Recommended Discharge Services: Physical Therapy, Occupational Therapy, Primary Care Physician Follow-up, [facility] Does the patient need discharge transport arranged?: No Physician Summary The team discussed the discharge date, destination and assistance required after discharge, and reviewed the written plan of care. The discharge date remains the same. The patient's progress towards rehabilitation goals and associated barriers to discharge were discussed related to activities of daily living, discharge planning, follow-up after discharge, mobility,education. . * Millie Peoples D.O. - 01/01/2024 7:10 AM CDT SUBJECTIVE Mrs. Latonya Gordon is an 83-year-old, right-hand dominant female from [place], [place]. Her medical history includes hypertension, hyperlipidemia, chronic pain and right MCA territory infarcts sustainedin November 2023. She presented to the Emergency Department on December 16 with acute worsening of left hemiparesis found to have acute ischemia in the right MCA distribution. Stroke mechanism is felt to beathero-embolic from her diffuse aortic arch atheroma. She has had extensive left MCA territorial infarcts as well as new right MCA territorial infarcts in the past 2 months. No acute events overnight. Last BM 12/30. She reports looking forward to go home today. We discussedwe will what signs to look out for for future stroke. Also encouraged her to keep a blood pressure log and shared this with her primary care physician. I answered her questions to the best of my ability. OBJECTIVE Temperature: [36.2 ??C-36.3 ??C] 36.2 ??C Resp Rate: [15-16] 15 Blood Pressure: (126-158)/(60-68) 145/68 SpO2: [94 %-100 %] 94 % Physical Exam GENERAL: Alert. No acute distress. Conversant. HEENT: Normocephalic, atraumatic. Oral cavity and tongue are unremarkable. Respiratory: No increased work of breathing SKIN: Bruising on the right lower quadrant. NEUROLOGICAL EXAM: MENTAL STATUS: Grossly oriented with appropriate mood and affect. Diagnostics I reviewed the imaging studies and agree with the interpretation as recorded. I reviewed the pertinent laboratory data and diagnostic data. ASSESSMENT / PLAN # Acute/subacute right frontal strokes # Left hemiparesis # History of right MCA territory infarcts November 2023 with good functional recovery # Hypertension # Functional limitations in mobility, self-cares, and prior roles secondary to impairments listed above and below - Admit to inpatient rehabilitation - Blood Pressure goal: SBP <180 - BG Goal: 140-180 - 30-days dual antiplatelet therapy with aspirin 81 mg daily and Brilinta 90 mg twice daily for 30 days (End date 01/22/2024) - Continue home losartan 50 mg - Neurology stroke follow-up arranged for January 26 - 30-day probate lawyer ongoing for atrial fibrillation evaluation # Hyperlipidemia -Continue rosuvastatin 20 mg # Chronic neck pain # Right trochanteric bursitis (previous right SPEEDY) - acetaminophen 650 mg q.6 hours as needed - lidocaine patch - triple cream - continue home oxycodone 5 mg at bedtime # anxiety - hydroxyzine 10 mg p.r.n. # abdominal bruising - prn acetaminophen - Warm/cold compresses FULL CODE as discussed with patient. Diet: Regular Bowel: bowel medication regimen Bladder: voiding; will do bladder scan PVR's to rule out retention, I/O cath for PVR > 250cc Disposition: 12/31; goal to home Associated attestation - Arian Ruiz M.D. - 01/01/2024 10:34 AM CDT I interviewed and examined the patient. I reviewed with Dr. Peoples and agree with the recordedevaluation. I reviewed dismissal planning with the patient. I also discussed monitoring her blood pressure at home with her home unit and writing down the results to take to her primary care physician. Her follow-up therapy and medical appointments have been arranged. She is medically stable and ready for dismissal today. * Kristy Silva - 12/31/2023 3:30 PM CDT Occupational Therapy [facility] Inpatient Progress Note SUBJECTIVE Patient's Name: Latonya Gordon Reason for Referral: OT Eval & Treat- [facility] Medical Diagnosis: 1. Stroke (HCC) [I63.9] 2. Lack Of Coordination [R27.9] 3. Stroke (HCC) 4. 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 She describes these migraines as lasting no more than 10 minutes, relieved by lying down and sometimes occurring in the R side. Furthermore, she experiences fluttery vision which she describes a zig-zag pattern in her vision. This time the migraine did not resolve within 10 minutes and she noticed L arm and hand tingling, numbness and weakness that got worse overtime. On 11/21/23, pt went to [facility] and had a CT scan which did not identify a stroke. She was discharged home the same day but her symptoms did not improve. On 11/25/23, pt described her arm going numb suddenly while having lunch. She also describes face numbness on her left tongue and cheek that intermittently resolved. The same day she had an appointment with her family doctor, who arranged emergency transportation to [facility] [place] her L upper extremity hemiparesis recovered almost back to normal. On 12/17/23, pt noted weakness and numbness in her L lower extremity when exiting her vehicle. She describes her movement as her leg dragging on the ground and felt her leg buckle. At this point, the Lupper extremity was mostly back to baseline with mild numbness. The numbness in her face occurred in termittently. Following this event she went to [facility]'s ED. After being evaluated by [facility]'s ED, she was discharged home. She describes being able to walk with a cane. Over the following day the symptoms in her left lower extremity worsened. On 12/21/23, her left lower extremity felt so weak and numb that she could not walk from her bed to her bathroom. On 12/22/23, she arrived to [place] ED[facility] workup and management. Stroke etiology is still unclear but include symptomatic carotid stenosis and cardioembolic. Patient had CT angiogram and MR angiogram of head and neck which showed 25-30% stenosis of right proximal ICA with a thin rim of peripheral calcification. Now admitted to IRF 5/18for further progression of therapeutic goals. Onset Date: 12/22/23 Patient/Caregiver Goals: Return home safely with assistance of . Patient Comments: Patient verbally agreed to therapy and treatment plan Precautions Other Precautions: Fall Risk. L hemiparesis (leg>arm). Fall Risk (65 and older) Fall in the last 12 months: No Fall Risk Comments: Instability. L lower extremity weakness. OBJECTIVE Pain: 0/10 Grooming Grooming Location: Standing at sink Grooming Delivery: Assessed Grooming Level of Assistance: Supervision/Set-up Grooming Comments: Patient able to complete oral hygiene and wash face standing at sink using frontwheeled walker. Uses bilateral upper extremities through out task and required no physical assistance to complete. UE Dressing UE Dressing Delivery: Assessed, Therapist Assisted UE Dressing Items Included: change over shirt, Bra UE Dressing Level of Assistance: Supervision/Set-up UE Dressing Location: Chair (bedside chair) UE Dressing Comments: Patient able to retrieve clothes from closet and therapist transported to recliner chair. Educated on benefits of walker basket used in previous sessions. Donned bra with intermittent assistance for strap management, but otherwise pulled over a sweatshirt with no assistance. LE Dressing LE Dressing Location: Chair (bedside recliner) LE Dressing Delivery: Assessed, Facilitated LE Dressing Adaptive Equipment: Fire And Safety Helper LE Dressing Items Included: Shoes, Pants, Underwear/Adult incontinence briefs LE Dressing Level of Assistance: Supervision/Set-up LE Dressing Comments: Used head bookkeeper to don underwear, but able to achieve figure four positioning todon pants. When shoes placed in front, able to slip on. In standing, can fully don underwear and pants over hips with contact guard assistance. Toileting Toileting Location: Toilet Toileting Delivery: Assessed, Instructed Toileting Level of Assistance: Supervision/Set-up Toileting Comments: Patient practiced using hand of toilet safety frame to simulate counter/vanity positioned next to toilet in home environment. Able to lower and raise self with supervision/contactguard assistance for hospital safety. Sit to Stand Transfers # of Assistants: 1 Transfer Surface: Bed, Chair, Wheelchair Transfer Equipment: Gait belt, Front wheeled walker Level of Assistance: Modified Independent Assessment/Delivery: Assessed Stand to Sit Transfers # of Assistants: 1 Transfer Surface: Chair, Wheelchair Transfer Equipment: Gait belt, Front wheeled walker Level of Assistance: Modified independent Assessment/Delivery: Assessed Toilet Transfers # of Assistants: 1 Transfer Surface: Toilet Transfer Approach: To and from, Ambulating Transfer Equipment: Front wheeled walker Level of Assistance: Supervision/set-up Assessment/Delivery: Assessed, Instructed Pre-Driving Assessment Patient completed cognitive aspects of this pre-driving screen in a quiet, private room with minimal environmental distractors. 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 The patient's brake reaction time was assessed with an RT Reaction Timer from [employer]. The patient participated in ten trials of brake reaction time assessment, and these trials were compared to normative data divided into age- related cohorts. Patient mean reaction time: 0.558 Patient scored between 25th and 50th percentiles for their age cohort and gender. Normative data Male Female Age 25th Percentile 50th Percentile Median 75th Percentile 25th Percentile 50th Percentile Median 75th Percentile Under 21 .5066 .4543 .4076 .5816 .5259 .4653 21-40 .5204 .4754 .4149 .5288 .4802 .4499 41-60 .5161 .4466 .4081 .5559 .4896 .4443 61-70 .5994 .5000 .4594 .5964 .5374 .4880 71-80 .5811 .5249 .4525 .6376 .5668 .4882 Over 80 .6729 .5300 .4866 .6583 .5427 .4820 Dynavision Performance Assessment Battery Dynavision is a treatment intervention with options available to address reaction time, visual scanning, peripheral visual awareness, visual attention, and visuomotor reaction time across a broad, active visual field. This incorporates aspects of psychomotor performance demands that are fundamentalto driving and provides some predictive validity related to return to driving in the community. Dynavision consists of a large wall-mounted board housing 64 small square buttons. These buttons are arranged in a pattern of five nested rings. Because the buttons are backlit, patients engage with thistask in a low lighting environment. The data recorded below reflects the number of hits the patientachieved under standardized parameters within a specified time limit. Dynavision Performance Assessment Battery TASKS PATIENT PERFORMANCE INTERPRETATION SAFE ASSOCIATE NORMS BORDERLINE ASSOCIATE NORMS UNSAFE ASSOCIATE NORMS Mode A 60 second timer 33 Unsafe 52+ 45-51 <45 Mode B 60 second timer 1 second exposures 14 Unsafe 42+ 35-41 <35 Mode A Continuous (4 min timer) 174 Unsafe 200+ 175-199 <175 This pre-driving screening was performed to provide the medical team with objective data regarding this patient's functional skills and deficits which may impact driving. Each selected assessment hasresearch literature correlating assessment performance to on-road behavior. The occupational therapist writing this report defers formal recommendations regarding return to driving to the medical team. Therapist has not discussed considerations related to a formal, on-road assessment with this patient, such as geographical location of on-road assessors and [id number] costs associated with on-road assessments. Research literature cautions against over reliance on standardized, off-road scores in the clinicalsetting to fully predict driving ability. Current literature recommends a combination of standardized assessments with observation of functional performance to guide clinical decision making regarding suitability to return to driving after a neurological injury. Box and Blocks Gross motor coordination was assessed using the Box and Blocks test, measured by the number of blocks moved in a minute, and compared against norms based on gender and age range. Right: 50 Left: 40 Female/75+ left hand norm = 63.6 blocks 9 Hole Peg Fine motor coordination was assessed using the 9 Hole Peg test, measured in seconds, and compared against norms based on gender and age range. Right: 29 seconds Left: 33 seconds Female/75+ left hand norm = 24.6 seconds Hope Test Hope Test is a symbol cancellation test that allows for a quantitative and qualitative assessment of visual inattention in the near extra personal space. If the patient has more than three omissions, then he/she is suspected of presenting with an attentional deficit. More severe deficits are suspected if more than six omissions occur. The patient's scanning strategy can be revealed by connectingthe circled bells according to the order in which they were circled. Normally, an organized scanning strategy is demonstrated by a vertical or horizontal pattern. Clients with a deficit in attention will demonstrate a disorganized scanning pattern. Total number of bells circled: 30 (Maximum of 35 bells within 264 distracters) Number of left omissions: 3 Number of right omissions: 2 Realization time (minutes): 1:45 (The time just before prompt was given: Are you sure that all thebells are now circled?) Time taken to complete test (minutes): 2:03 Qualitative description of scanning pattern: Organized vertical visual scanning pattern Assessment was administered today with paper and pencil via standardized form. At the end of today's therapy session patient was left seated in a wheelchair with an appropriate call light within reach. Patient's needs and questions addressed during today's session. Assessment Patient demonstrated good performance during today's session on 12/31/23. Engaged in multiple interventions aimed at return to driving. Although the patient had an average brake reaction time of 0.558, she demonstrated unsafe performance patterns when participating in Dynavision trials. This could be impacted by testing time of day, but looking to further assess this area in outpatient. Chavez's Cancellation Test was performed to rule out any disorganized visual scanning patterns that could contribute to Dynavision performance, but no disorganized scanning patterns were observed. The few bells she missed were dispersed across left and right visual crowley. As for gross and fine motor dexterity,patient demonstrated improvements in both box and blocks scores and 9 hole peg test times compared to at evaluation. 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 Patient is performing below functional baseline and requires skilled OT to address listed deficits and optimize safety and independence with activities of daily living and instrumental activities of daily living for dismissal to home. Barriers to Discharge Home: Current functional status, Fall risk, Safety concerns Personal Factors: Balance impairment, Hearing impairment, Needs assistive device, Safety awareness Discharge Therapy Needs - OT: Ongoing skilled occupational therapy Level of Care Needed - OT: Assistance with toileting, Assistance with toilet/shower transfers, Assistance with medication set up/administration, Assistance with showering/bathing, Assistance with peoplesoft financial developer, Assistance with meal preparation, Assistance with dressing, Assistance with eating/feeding, Assistance with transportation, Assistance with housekeeping, Assistance with shopping, Physical assistance needed Recommended Adaptive Equipment - OT: Other (Comment) (ongoing assessment) Functional Goals and Timeframes: OT Goal #1: By next ITC, pt will complete full grooming routine standing with contact guard assistance in order to promote increased independence in ADL/IADL tasks. OT Goal #1 Status: Progressing (12/29: depending on what she needs to complete, requires rest breaks) OT Goal #2: New OT Goal: By next ITC, patient will demonstrate appropriate use of adaptive equipment/strategies to complete dressing routine with modified independence. OT Goal #2 Status: Progressing (12/30: at times requires intermittent touching assistance) OT Goal #3: New OT Goal: By discharge, patient will demonstrate the ability to engage in return to driving tasks independently. OT Goal #3 Status: Progressing (12/30: continue in outpatient) OT Goal #4: By discharge, pt will demonstrate understanding regarding recommended equipment, strategies and level of assist needed in order to promote increased independence in ADL/IADL tasks. OT Goal #4 Status: Progressing (12/30: will further address 12/31) Progress: Progressing toward goals Plan Patient agrees with the plan of care and goals. Treatment Plan: OT Frequency: 5 times per week OT Amount: 2 visits per day Plan: Continue with current plan OT Plan Comments: thu. 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 - 01/01/2024 1:13 PM CDT This therapist has reviewed all documentation and supervised today???s session. The therapist agrees with the plan developed in collaboration with the patient. * Marge Birch P.T., M.H.A. - 12/31/2023 1:43 PM CDT Physical Therapy [facility] Inpatient Treatment SUBJECTIVE Patient's Name: Latonya Gordon Reason for Referral: Inpatient Rehab Facility Physical Therapy Eval & Treat; [facility] Medical Diagnosis: 1. Stroke (HCC) [I63.9] 2. Lack Of Coordination [R27.9] 3. Stroke (HCC) 4. 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 She describes these migraines as lasting no more than 10 minutes, relieved by lying down and sometimes occurring in the R side. Furthermore, she experiences fluttery vision which she describes a zig-zag pattern in her vision. This time the migraine did not resolve within 10 minutes and she noticed L arm and hand tingling, numbness and weakness that got worse overtime. On 11/21/23, pt went to [facility] and had a CT scan which did not identify a stroke. She was discharged home the same day but her symptoms did not improve. On 11/25/23, pt described her arm going numb suddenly while having lunch. She also describes face numbness on her left tongue and cheek that intermittently resolved. The same day she had an appointment with her family doctor, who arranged emergency transportation [place] [facility]. [place] her L upper extremity hemiparesis recovered almost back to normal. On 12/17/23, pt noted weakness and numbness in her L lower extremity when exiting her vehicle. She describes her movement as her leg dragging on the ground and felt her leg buckle. At this point, the Lupper extremity was mostly back to baseline with mild numbness. The numbness in her face occurred in termittently. Following this event she went to [facility]'s ED. After being evaluated by [facility]'s ED, she was discharged home. She describes being able to walk with a cane. Over the following day the symptoms in her left lower extremity worsened. On 12/21/23, her left lower extremity felt so weak and numb that she could not walk from her bed to her bathroom. On 12/22/23, she [facility] [place] [facility] and [facility]. Stroke etiology is still unclear but include symptomatic carotid stenosis and cardioembolic. Patient had CT angiogram and MR angiogram of head and neck which showed 25-30% stenosis of right proximal ICA with a thin rim of peripheral calcification. Now admitted to [facility]for further progression of therapeutic goals. Onset Date: 12/22/23 Patient/Caregiver Goals: Return home safely with assistance of . Patient Comments: Pt agreeable to PT in am & pm sessions Precautions Other Precautions: Fall Risk. L hemiparesis (leg>arm). OBJECTIVE Pain: 0/10 Vitals: Not indicated at this time Bed Mobility - Rolling Level of Assistance: Independent Device: None Cuing: Verbal Comments: Verbal cues for instruction only Bed Mobility - Supine to Sit Level of Assistance: Independent Device: None Cuing: Verbal Comments: Verbal cues for instruction only Bed Mobility - Sit to Supine Level of Assistance: Independent Device: None Cuing: Verbal Comments: Verbal cues for instruction only Sit to Stand Transfers # of Assistants: 1 Transfer Surface: Chair, Bed Transfer Equipment: Gait belt, Front wheeled walker Level of Assistance: Modified Independent Assessment/Delivery: Assessed Comments: Performed multiple times in a.m. and p.m. sessions Stand to Sit Transfers # of Assistants: 1 Transfer Surface: Bed, Chair Transfer Equipment: Gait belt, Front wheeled walker Level of Assistance: Modified independent Assessment/Delivery: Assessed Comments: Performed multiple times in a.m. and p.m. sessions Bed, Chair, Wheelchair Transfers # of Assistants: 1 Transfer Surface: Bed, Chair Transfer Approach: To Transfer Equipment: Front wheeled walker Level of Assistance: Modified Independent Assessment/Delivery: Assessed Gait Assessment/Training Distance (m): 131 m (x 1;) Surface: Even, Smooth/hard Device: Gait belt, Front-wheeled walker # of Assistants: 1 Level of Assistance: Modified Independent Quality/Pattern: Decreased heel strike, Decreased toe off Assessment of Gait: Patient ambulated using a front wheeled walker. Step lengths are fairly even. She intermittently demonstrates decreased step length with left foot, for which patient able to self-correct. Patient with mild scoliosis and subsequent mild forward trunk lean as well as upper trunk right shift on pelvis throughout gait Cueing Provided: Verbal Training/Intervention: primarily assessment with minimal input from PT Response: Good tolerance for increased distance ambulation with a.m. session & pm sessions Stairs/Curb # Stairs: 12 Step Height (in): 6 in Rails: 1 Device: Other (Comment) (steve) # of Assistants: 1 Level of Assistance: Supervision/Set-up Stair Navigation Pattern-Ascending: Step-to pattern Stair Navigation Lead Foot-Ascending: Left Stair Navigation Pattern-Descending: Step-to pattern Stair Navigation Lead Foot-Descending: Left Cueing Provided: Verbal Training/Intervention: Pt acknowledged she was 'not doing it the way she was instructed' but felt better stepping up with L LE first, which PT agreed looked stable. Pt also felt more comfortable 'leaning against wall' which she reports has been her method for doing stairs at home prior to stroke, which again PT agreed assisted patient for stability Response: Good tolerance navigating 12 steps, with no pain complaint throughout Equipment Use Nu Step Comments: Nu-step for conditioning, left LE neuromuscular reeducation and brain benefits from cardiovascular exercise. Pt performed 11 min on level 1, 0.24 miles, Avg SPM= 38. Standing Exercise - Side Addressed: Right, Left Standing Exercise: Marching, Hip extension, Hip abduction Sets/Repetitions: 1 set / 10reps each R & L Issued HEP: Access Code: [email or web address] URL: [email or web address] Date: 12/31/2023 Prepared by: Marge Birch Exercises - Hooklying Small March - 1 x daily - 7 x weekly - 1 sets - 10 reps - 2-3 hold - Beginner Bridge - 1 x daily - 7 x weekly - 1 sets - 10 reps - 5 hold - Hooklying Clamshell with Resistance - 1 x daily - 7 x weekly - 1 sets - 10 reps - 3-5 hold - Seated Long Arc Quad - 1 x daily - 1 sets - 10 reps - 5 sec hold - Seated March - 1 x daily - 7 x weekly - 1 sets - 10 reps - Seated Shoulder Row with Anchored Resistance - 1 x daily - 7 x weekly - 2 sets - 15 reps - 3 sec's hold - Standing Hip Abduction with Counter Support - 1 x daily - 7 x weekly - 1 sets - 10 reps - Standing Hip Extension with Counter Support - 1 x daily - 7 x weekly - 1 sets - 10 reps - Standing Marching - 1 x daily - 7 x weekly - 1 sets - 10 reps Quality Indicators: Roll Left and Right Assistance Needed: Independent CARE Score - Roll Left and Right: 6 Sit to Lying Assistance Needed: Independent CARE Score - Sit to Lyin Lying to Sitting on Side of Bed Assistance Needed: Independent CARE Score - Lying to Sitting on Side of Bed: 6 Sit to Stand Assistance Needed: Independent, Adaptive equipment CARE Score - Sit to Stand: 6 Chair/[id number]-[id number] Transfer Assistance Needed: Independent, Adaptive equipment CARE Score - Chair/[id number]-Jimnc Transfer: 6 Car Transfer Assistance Needed: Set-up / clean-up, Adaptive equipment CARE Score - Car Transfer: 5 Walk 10 Feet Assistance Needed: Independent, Adaptive equipment CARE Score - Walk 10 Feet: 6 Walk 50 Feet with Two Turns Assistance Needed: Independent, Adaptive equipment CARE Score - Walk 50 Feet with Two Turns: 6 Walk 150 Feet Assistance Needed: Independent, Adaptive equipment CARE Score - Walk 150 Feet: 6 Walking 10 Feet on Uneven Surfaces Assistance Needed: Independent, Adaptive equipment CARE Score - Walking 10 Feet on Uneven Surfaces: 6 1 Step (Curb) Assistance Needed: Supervision, Adaptive equipment CARE Score - 1 Step (Curb): 4 4 Steps Assistance Needed: Supervision, Adaptive equipment CARE Score - 4 Steps: 4 12 Steps Assistance Needed: Supervision, Adaptive equipment CARE Score - 12 Steps: 4 Picking Up Object Assistance Needed: Independent, Adaptive equipment CARE Score - Picking Up Object: 6 Wheel 50 Feet with Two Turns Reason if not Attempted: Activity not applicable CARE Score - Wheel 50 Feet with Two Turns: 9 Wheel 150 Feet Reason if not Attempted: Activity not applicable CARE Score - Wheel 150 Feet: 9 Patient/Family Education: stroke recovery, anticipated progression of activities & goals w/ OP PT. Education Provided to: Latonya Carmonaer's Response: Able to demonstrate At the end of today's therapy session patient was left seated in a wheelchair with an appropriate call light within reach. Patient's needs and questions addressed during today's session. Assessment Patient has made good gains during this rehabilitation stay. She is demonstrating independence withbed mobility, transfers using front wheel walker and household ambulation distances using front wheel walker. Patient was also able to navigate 1 full flight of stairs with supervision and verbal cues for technique, using 1 rail and hurricane. Patient will continue to benefit from skilled PT in theoutpatient setting, following discharge from the rehabilitation unit, to continue to progress lowerextremity and trunk strength, activity tolerance, upright balance and functional independence for longer distance ambulation as well as maximizing independence on navigating stairs. 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 PT Goal #1 Date: 01/01/24 PT Goal #1 Status: Achieved PT Goal #2: STG: Patient well negotiate 8 steps using bilateral railings with contact guard assistance in a reciprocal pattern. PT Goal #2 Date: 01/01/24 PT Goal #2 Status: Achieved PT Goal #3: LTG: Patient will ambulate household distances with least restrictive assistive device with supervision to promote a safe discharge. PT Goal #3 Date: 01/07/24 PT Goal #3 Status: Achieved PT Goal #4: LTG: Patient will ambulate a flight of stairs using a hand rail with standby assistanceto promote a safe discharge. PT Goal #4 Date: 01/07/24 PT Goal #4 Status: Achieved Plan Patient agrees with the plan of care and goals. Treatment Plan: PT Frequency: 6 times per week PT Amount: 2 visits per day PT Inpatient Duration : Until goals are met or hospital discharge Plan: Continue with current plan PT Plan Comments: Progressive therapeutic functional activities, neuromuscular re-education for left side, gait and balance training, stair training, patient/family Education Treatment interventions may include: Treatment/Interventions: Therapeutic exercise, Therapeutic functional activity, Neuromuscular re-education, Gait training Other PT Interventions: Progressive therapeutic functional activities, neuromuscular re-education for left side, gait and balance training, stair training, patient/family Education Time Spent with Patient Therapeutic Interventions Gait Training (min): 45 min Therapeutic Activity (min): 30 min Therapeutic Exercise (min): 15 min Time Tracking Total Timed Units (min): 90 min Total Treatment Time (min): 90 min PT Individual : 90 Minutes Marge Birch P.T., M.H.A. * Мария Odonnell, MontrellIMarthaC.S.W., M.S.W. - 12/31/2023 12:37 PM CDT SUBJECTIVE Social work met with the patient in his hospital room to provide a supportive visit prior to discharge. Patient reports being ready to return home. She discusses that her will be coming this afternoon to be present while she works with therapy and will also be present tomorrow morning. She confirms that her outpatient follow up has been arranged and she feels confident in her homegoing plan. She denied any questions or concerns. OBJECTIVE Mrs. Latonya Gordon is a 83 year old female, currently hospitalized on [facility], acute rehabilitation. She was admitted to the [facility] on 12/22/23 following her second stroke. The patient has completed the PHQ-9: PHQ9 Score PHQ-9 Total Score (max 27) 0 Item 9 Thoughts that you would be better off or of hurting yourself in some way Not at all Social isolation Question: How often do you feel lonely or isolated from those around you?: Never ASSESSMENT / PLAN ASSESSMENT Latonya was awake, alert, oriented, and sitting up in her hosptial chair during visit. She was pleasant and forthcoming. Speech was clear. Patient was agreeable to complete PHQ-9, showing no depressive symptoms. She denies any mental health concerns past or present, outside of anxiety related to current hospitalization. Patient appears to have insight into her needs at this time. She is planning to return home with family support. The patient reported agreement with the below plan with no further questions at this time PLAN Patient will discharge home with family on Thursday, 12/31. Social work will continue to be available to the patient and family for ongoing support and discussion of community resources. Salvador Still, M.S.W. 12/31/23 * Millie Peoples D.O. - 12/31/2023 7:00 AM CDT SUBJECTIVE Mrs. Latonya Gordon is an 83-year-old, right-hand dominant female from [place], [place]. Her medical history includes hypertension, hyperlipidemia, chronic pain and right MCA territory infarcts sustainedin November 2023. She presented to the Emergency Department on December 16 with acute worsening of left hemiparesis found to have acute ischemia in the right MCA distribution. Stroke mechanism is felt to beathero-embolic from her diffuse aortic arch atheroma. She has had extensive left MCA territorial infarcts as well as new right MCA territorial infarcts in the past 2 months. No acute events overnight. Last BM 12/29. She had improved intake yesterday with 1250 mL in. She reports racing thoughts last night and worries about her since she had not seen him yesterday. She took a PRN dose of Atarax yesterday with improvement int he racing thoughts and was ableto fall asleep. Bruising on right lower quadrant is stable. In PT she has been working on devices to off load her lumbar spine and increase her tolerance to walking. Still requiring intermittent assistance with OT for bathing. Multidisciplinary discharge planning rounds: I participated in multidisciplinary discharge planning rounds today. Attendees included: patient, physician, bedside nurse, customer care manager, physical therapist, and occupational therapist. Medical updates were provided. Also discussed was progress toward patient centered goals, ongoing rehabilitation needs and dismissal planning. OBJECTIVE Temperature: [36.2 ??C-36.5 ??C] 36.5 ??C Resp Rate: [12-16] 14 Blood Pressure: (125-151)/(59-91) 125/59 SpO2: [94 %-97 %] 97 % Physical Exam GENERAL: Alert. No acute distress. Conversant. HEENT: Normocephalic, atraumatic. Oral cavity and tongue are unremarkable. Respiratory: No increased work of breathing SKIN: Bruising on the right lower quadrant. NEUROLOGICAL EXAM: MENTAL STATUS: Grossly oriented with appropriate mood and affect. Diagnostics I reviewed the imaging studies and agree with the interpretation as recorded. I reviewed the pertinent laboratory data and diagnostic data. ASSESSMENT / PLAN # Acute/subacute right frontal strokes # Left hemiparesis # History of right MCA territory infarcts November 2023 with good functional recovery # Hypertension # Functional limitations in mobility, self-cares, and prior roles secondary to impairments listed above and below - Admit to inpatient rehabilitation - Blood Pressure goal: SBP <180 - BG Goal: 140-180 - 30-days dual antiplatelet therapy with aspirin 81 mg daily and Brilinta 90 mg twice daily for 30 days (End date 01/22/2024) - Continue home losartan 50 mg - Neurology stroke follow-up arranged for January 26 - 30-day probate lawyer ongoing for atrial fibrillation evaluation # Hyperlipidemia -Continue rosuvastatin 20 mg # Chronic neck pain # Right trochanteric bursitis (previous right SPEEDY) - acetaminophen 650 mg q.6 hours as needed - lidocaine patch - triple cream - continue home oxycodone 5 mg at bedtime # anxiety - hydroxyzine 10 mg p.r.n. # abdominal bruising - prn acetaminophen - Warm/cold compresses FULL CODE as discussed with patient. Diet: Regular DVT prophylaxis: Heparin --> Lovenox Bowel: bowel medication regimen Bladder: voiding; will do bladder scan PVR's to rule out retention, I/O cath for PVR > 250cc Disposition: 12/31; goal to home Associated attestation - Arian Ruiz M.D. - 12/31/2023 12:56 PM CDT I saw and evaluated the patient, participating in the espinoza portions of the service. I reviewed the note of Dr. Peoples. I agree with the resident/fellow???s findings and plan. Ms. Gordon is capable of participating in rehabilitation. She continues to progress towards functional independence in the area(s) of mobility, self-care, and cognition and will benefit from ongoing intensive inpatient rehabilitation. I reviewed the patient with the rehab team on interdisciplinary bedside rounds. She is made excellent progress in all disciplines and should be safe for dismissal home tomorrow. Outpatient follow-up and therapies have been arranged. Medically, the patient's vital signs are stable. We discontinued the Lovenox yesterday due to significant abdominal bruising. Arian Ruiz M.D. * Kristy Silva - 12/30/2023 5:17 PM CDT Occupational Therapy Rehabilitation [facility] Inpatient Progress Note SUBJECTIVE Patient's Name: Latonya Gordon Reason for Referral: OT Eval & Treat- IR[facility] Medical Diagnosis: 1. Stroke (HCC) [I63.9] 2. Lack Of Coordination [R27.9] 3. 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 She describes these migraines as lasting no more than 10 minutes, relieved by lying down and sometimes occurring in the R side. Furthermore, she experiences fluttery vision which she describes a zig-zag pattern in her vision. This time the migraine did not resolve within 10 minutes and she noticed L arm and hand tingling, numbness and weakness that got worse overtime. On 11/21/23, pt went to [facility] and had a CT scan which did not identify a stroke. She was discharged home the same day but her symptoms did not improve. On 11/25/23, pt described her arm going numb suddenly while having lunch. She also describes face numbness on her left tongue and cheek that intermittently resolved. The same day she had an appointment with her family doctor, who arranged emergency transportation [place] [facility] [place]. [place] her L upper extremity hemiparesis recovered almost back to normal. On 12/17/23, pt noted weakness and numbness in her L lower extremity when exiting her vehicle. She describes her movement as her leg dragging on the ground and felt her leg buckle. At this point, the Lupper extremity was mostly back to baseline with mild numbness. The numbness in her face occurred in termittently. Following this event she went to [facility]'s ED. After being evaluated by [facility]'s ED, she was discharged home. She describes being able to walk with a cane. Over the following day the symptoms in her left lower extremity worsened. On 12/21/23, her left lower extremity felt so weak and numb that she could not walk from her bed to her bathroom. On 12/22/23, she arrived to [place] [facility] management. Stroke etiology is still unclear but include symptomatic carotid stenosis and cardioembolic. Patient had CT angiogram and MR angiogram of head and neck which showed 25-30% stenosis of right proximal ICA with a thin rim of peripheral calcification. Now admitted to IRF 5/18for further progression of therapeutic goals. Onset Date: 12/22/23 Patient/Caregiver Goals: Return home safely with assistance of . Patient Comments: Patient verbally agreed to therapy and treatment plan Precautions Other Precautions: Fall Risk. L hemiparesis (leg>arm). Fall Risk (65 and older) Fall in the last 12 months: No Fall Risk Comments: Instability. L lower extremity weakness. OBJECTIVE Pain: 0/10 Vitals: HR: 78 bpm BP: 139/71 SpO2: 96% Grooming Grooming Location: Standing at sink Grooming Delivery: Assessed Grooming Level of Assistance: Supervision/Set-up Grooming Comments: Patient able to complete oral hygiene and wash face standing at sink using frontwheeled walker. Uses bilateral upper extremities through out task and required no physical assistance to complete. UE Dressing UE Dressing Delivery: Assessed, Therapist Assisted UE Dressing Items Included: change over shirt, Bra UE Dressing Level of Assistance: Supervision/Set-up UE Dressing Location: Chair (bedside chair) UE Dressing Comments: Patient able to retrieve clothes from closet and transport to bedisde recliner using walker basket. Donned bra with intermittent assistance for strap management, but otherwise pulled over a t-shirt and donned a full-zip jacket with no assistance. LE Dressing LE Dressing Location: Chair (bedside recliner) LE Dressing Delivery: Assessed, Instructed, Educated, Facilitated LE Dressing Adaptive Equipment: Fire And Safety Helper, Long shoe horn, Sock aid LE Dressing Items Included: Shoes, Pants, Underwear/Adult incontinence briefs, Socks LE Dressing Level of Assistance: Supervision/Set-up LE Dressing Comments: Used head bookkeeper to don underwear. Patient able to demonstrate effectively and reported ease of use when performing. Able to achieve figure four positioning to don pants, and was educated that she can also perform to don underwear. Patient demonstrated use of sock aid from home, and reported that she was previously not educated on how to use it from a prior hip replacement. Ableto don shoes using shoe horn with intermittent touching assistance for shoe horn placement, but total assistance for tying shoes. Reported that she can have her tie or wear her other shoes, but preferred to wear these shoes on this specific date. Toileting Toileting Location: Toilet Toileting Delivery: Assessed Toileting Level of Assistance: Supervision/Set-up Toileting Comments: Patient able to lower and raise self from toilet with contact guard assistance provided at gait belt for safety. Sit to Stand Transfers # of Assistants: 1 Transfer Surface: Bed, Chair, Wheelchair, Toilet/Commode Transfer Equipment: Gait belt, Front wheeled walker Level of Assistance: Supervision/set-up Assessment/Delivery: Assessed Stand to Sit Transfers # of Assistants: 1 Transfer Surface: Chair, Wheelchair, Toilet/Commode Transfer Equipment: Gait belt, Front wheeled walker Level of Assistance: Supervision/set-up Assessment/Delivery: Assessed Toilet Transfers # of Assistants: 1 Transfer Surface: Toilet Transfer Approach: To and from, Ambulating Transfer Equipment: (gait belt) Level of Assistance: Contact guard assistance Assessment/Delivery: Assessed Bath Transfers # of Assistants: 1 Transfer Type: Walk-in shower Transfer Approach: To and from, Ambulating Transfer Equipment: Grab bars, Front wheeled walker Level of Assistance: Supervision/set-up Assessment/Delivery: Assessed, Instructed, Educated Comments: Patient completed simulated shower transfer using long wooden blocks to simulate lip height in home environment. Therapist educated patient on using grab bars located outside of shower to side step into shower. Patient able to demonstrate multiple times in the presence of spouse. Patient/Family Education: bathroom safety education- equipment, transfers Education Provided to: Latonya and spouse Learner's Response: Able to teach back and Able to demonstrate At the end of today's therapy session patient was left seated in a wheelchair with an appropriate call light within reach. Patient's needs and questions addressed during today's session. Assessment Patient demonstrated good participation in today's treatment session on 12/30/23. She is progressingwith completion of dressing using adaptive equipment/strategies, and has the ability to progress tocomplete with modified independence. She was able to demonstrate appropriate shower transfers while simulating her home setup, and no safety concerns are present, especially because spouse can support when needed. Although not demonstrated, we verbally problem solved ways to transfer into her separate tub unit safely using adaptive equipment and strategies. She reported she would like to work on this upon discharge in outpatient to return to valued occupation of taking baths rather than showers. Future sessions will focus on return to driving, as this is a goal of the patient's that she has been making good progress with. Patient is performing below functional baseline and requires skilled OT to address listed deficits and optimize safety and independence with activities of daily living an d instrumental activities of daily living for dismissal to home. Barriers to Discharge Home: Current functional status, Fall risk, Safety concerns Personal Factors: Balance impairment, Hearing impairment, Needs assistive device, Safety awareness Discharge Therapy Needs - OT: Ongoing skilled occupational therapy Level of Care Needed - OT: Assistance with toileting, Assistance with toilet/shower transfers, Assistance with medication set up/administration, Assistance with showering/bathing, Assistance with peoplesoft financial developer, Assistance with meal preparation, Assistance with dressing, Assistance with eating/feeding, Assistance with transportation, Assistance with housekeeping, Assistance with shopping, Physical assistance needed Recommended Adaptive Equipment - OT: Other (Comment) (ongoing assessment) Functional Goals and Timeframes: OT Goal #1: By next ITC, pt will complete full grooming routine standing with contact guard assistance in order to promote increased independence in ADL/IADL tasks. OT Goal #1 Status: Progressing (12/29: depending on what she needs to complete, requires rest breaks) OT Goal #2: New OT Goal: By next ITC, patient will demonstrate appropriate use of adaptive equipment/strategies to complete dressing routine with modified independence. OT Goal #2 Status: Modified (12/29: By next ITC, pt will complete toilet transfer and toileting withno more than minimal assistance in order to promote increased independence in ADL/IADL tasks. Goal achieved.) OT Goal #3: New OT Goal: By discharge, patient will demonstrate the ability to engage in return to driving tasks independently. OT Goal #3 Status: Modified (12/29: By discharge, pt will demonstrate shower transfer with no more than contact guard assistance in simulated home environment in order to promote increased independence in ADL/IADL tasks. Goal achieved.) OT Goal #4: By discharge, pt will demonstrate understanding regarding recommended equipment, strategies and level of assist needed in order to promote increased independence in ADL/IADL tasks. OT Goal #4 Status: Progressing (12/29: addressed bathroom safety with spouse present) Progress: Progressing toward goals Plan Patient agrees with the plan of care and goals. Treatment Plan: OT Frequency: 5 times per week OT Amount: 2 visits per day Plan: Continue with current plan OT Plan Comments: . 12/30: return to driving- [place] [employer], [employer], brake reaction time Treatment interventions may include: Treatment Interventions: Therapeutic exercise, Therapeutic functional activity, Neuromuscular re-education, Self-care/home management, Cognitive skills training, Therapeutic modalities as needed Time Spent with Patient Therapeutic Interventions Home Management Training (min): 90 min Time Tracking Total Timed Units (min): 90 min Total Treatment Time (min): 90 min OT Individual: 90 Minutes Kristy Silva OTS Associated attestation - Debra Torres M.S., O.T., O.T.D. - 12/31/2023 12:49 PM CDT This therapist has reviewed all documentation and supervised today???s session. The therapist agrees with the plan developed in collaboration with the patient. * Marge Birch P.T., M.H.A. - 12/30/2023 4:56 PM CDT [facility] SUBJECTIVE Patient's Name: Latonya Gordon Reason for Referral: Inpatient Rehab Facility Physical Therapy Eval & Treat; [facility] Medical Diagnosis: 1. Stroke (HCC) [I63.9] 2. Lack Of Coordination [R27.9] 3. 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 She describes these migraines as lasting no more than 10 minutes, relieved by lying down and sometimes occurring in the R side. Furthermore, she experiences fluttery vision which she describes a zig-zag pattern in her vision. This time the migraine did not resolve within 10 minutes and she noticed L arm and hand tingling, numbness and weakness that got worse overtime. On 11/21/23, pt went to [facility] and had a CT scan which did not identify a stroke. She was discharged home the same day but her symptoms did not improve. On 11/25/23, pt described her arm going numb suddenly while having lunch. She also describes face numbness on her left tongue and cheek that intermittently resolved. The same day she had an appointment with her family doctor, who arranged emergency transportation to [facility]'s ED. [place] her L upper extremity hemiparesis recovered almost back to normal. On 12/17/23, pt noted weakness and numbness in her L lower extremity when exiting her vehicle. She describes her movement as her leg dragging on the ground and felt her leg buckle. At this point, the Lupper extremity was mostly back to baseline with mild numbness. The numbness in her face occurred in termittently. Following this event she went to [facility]'s ED. After being evaluated by [facility] ED, she was discharged home. She describes being able to walk with a cane. Over the following day the symptoms in her left lower extremity worsened. On 12/21/23, her left lower extremity felt so weak and numb that she could not walk from her bed to her bathroom. On 12/22/23, she arrived to [place] EDfor workup and management. Stroke etiology is still unclear but include symptomatic carotid stenosis and cardioembolic. Patient had CT angiogram and MR angiogram of head and neck which showed 25-30% stenosis of right proximal ICA with a thin rim of peripheral calcification. Now admitted to IRF /18for further progression of therapeutic goals. Onset Date: 12/22/23 Patient/Caregiver Goals: Return home safely with assistance of . Patient Comments: Pt agreeable to PT in am & pm sessions Precautions Other Precautions: Fall Risk. L hemiparesis (leg>arm). OBJECTIVE Pain: 0/10 Vitals: Not indicated at this time Bed Mobility - Supine to Sit # of Assistants: 1 Level of Assistance: Supervision/Set-up, Minimal assistance Device: None Cuing: Verbal, Tactile Comments: Verbal cues for teaching logroll technique, and light touching assist Bed Mobility - Sit to Supine # of Assistants: 1 Level of Assistance: Supervision/Set-up, Minimal assistance Device: None Cuing: Verbal Comments: Verbal cues for logroll technique, and light touching assist Sit to Stand Transfers # of Assistants: 1 Transfer Surface: Chair, Therapy mat Transfer Equipment: Gait belt, Front wheeled walker Level of Assistance: Supervision/set-up Assessment/Delivery: Assessed Comments: Performed multiple times in a.m. and p.m. sessions Stand to Sit Transfers # of Assistants: 1 Transfer Surface: Bed, Therapy mat Level of Assistance: Supervision/set-up Assessment/Delivery: Assessed Comments: Performed multiple times in a.m. and p.m. sessions Bed, Chair, Wheelchair Transfers # of Assistants: 1 Transfer Surface: Chair Transfer Approach: To and from, Ambulating Transfer Equipment: Front wheeled walker Level of Assistance: Supervision/ Set-up Assessment/Delivery: Assessed Gait Assessment/Training Distance (m): 48.8 m (X2 repetitions during a.m. session; 48.8m x 2 reps in PM session) Surface: Even, Smooth/hard Device: Gait belt, Front-wheeled walker # of Assistants: 1 Level of Assistance: Supervision/Set-up Quality/Pattern: Decreased heel strike, Decreased toe off Assessment of Gait: Patient ambulated using a front wheeled walker. Step lengths are fairly even. She intermittently demonstrates decreased step length with left foot, for which patient able to self-correct. Patient with mild scoliosis and subsequent mild forward trunk lean as well as upper trunk right shift on pelvis throughout gait Cueing Provided: Verbal, Tactile, Visual Training/Intervention: Therapist provided cues for heel strike on the left and encouraged pacing. Response: Good tolerance for increased distance ambulation with a.m. session & pm sessions Supine Exercise: Bridging Sets/Repetitions: 2sets of 10 reps Standing Exercise - Side Addressed: Right, Left Standing Exercise: Marching, Hip abduction, Hip extension, Step ups Sets/Repetitions: 1 set / 10reps each R & L Strengthening (UE) Side Addressed: Bilateral Exercise Position: Seated Resistance Type: Elastic resistance band Cuing Provided: Verbal, Visual Therapeutic Exercise Delivery: Assessed, Therapist assisted, Instructed Total Arm Exercises - All Movements Across All Joints Resistance/Sets/Reps: Seated row with green Thera-Band, 2 sets of 15 repetitions with visual and verbal cues for upright posture throughout Patient/Family Education: stroke recovery, planning for homegoing, equipment strategizing. Education Provided to: Latonya Learner's Response: Able to demonstrate and Requires continued education At the end of today's therapy session patient was left on toilet, nursing staff notified and with an appropriate call light within reach. Patient's needs and questions addressed during today's session. Assessment Patient continues to make steady progress in ambulation using front wheel walker and activity tolerance for multiple balance of ambulation to and from therapy gym. Patient continues to express desireto wean off of walker, although acknowledges she is now ready to do so at this time. Patient also acknowledges that her walking has decreased over the past few years due to low back pain with uprightactivity. PT continues to educate patient in regard to benefits of use of device to off-load lumbarspine and allow for continued walking, as well as benefit of regular walking to allow for maintain strength and activity tolerance/cardiovascular endurance for basic mobility in home and community. Patient continues to function below her baseline and will continue to benefit from ongoing skilled physical therapy to continue to progress functional mobility, strength and activity tolerance, promote neuro-recovery, provide education, maximize safety, reduce fall risk and facilitate a safe discharge to home environment. 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 PT Goal #1 Date: 01/01/24 PT Goal #1 Status: Progressing PT Goal #2: STG: Patient well negotiate 8 steps using bilateral railings with contact guard assistance in a reciprocal pattern. PT Goal #2 Date: 01/01/24 PT Goal #2 Status: Progressing PT Goal #3: LTG: Patient will ambulate household distances with least restrictive assistive device with supervision to promote a safe discharge. PT Goal #3 Date: 01/07/24 PT Goal #3 Status: Progressing PT Goal #4: LTG: Patient will ambulate a flight of stairs using a hand rail with standby assistanceto promote a safe discharge. PT Goal #4 Date: 01/07/24 PT Goal #4 Status: Progressing Plan Patient agrees with the plan of care and goals. Treatment Plan: PT Frequency: 6 times per week PT Amount: 2 visits per day PT Inpatient Duration : Until goals are met or hospital discharge Plan: Continue with current plan PT Plan Comments: Progressive therapeutic functional activities, neuromuscular re-education for left side, gait and balance training, stair training, patient/family Education Treatment interventions may include: Treatment/Interventions: Therapeutic exercise, Therapeutic functional activity, Neuromuscular re-education, Gait training Other PT Interventions: Progressive therapeutic functional activities, neuromuscular re-education for left side, gait and balance training, stair training, patient/family Education Time Spent with Patient Therapeutic Interventions Gait Training (min): 45 min Therapeutic Activity (min): 20 min Therapeutic Exercise (min): 25 min Time Tracking Total Timed Units (min): 90 min Total Treatment Time (min): 90 min PT Individual : 90 Minutes Marge Birch P.T., DanielHMarthaAMartha * Gil De Santiago D.T.R. - 12/30/2023 10:55 AM CDT Patient was assessed and determined to be nutritionally stable. Clinical nutrition will sign off but will continue to screen per departmental guidelines. Please reconsult for any questions/concerns regarding patient's nutritional status. For questions about patient's nutritional care please contact pager [phone] on weekdays or [phone] on weekends/holidays. * Millie Peoples D.O. - 12/30/2023 6:35 AM CDT SUBJECTIVE Mrs. Latonya Gordon is an 83-year-old, right-hand dominant female from [place], [place]. Her medical history includes hypertension, hyperlipidemia, chronic pain and right MCA territory infarcts sustainedin November 2023. She presented to the Emergency Department on December 16 with acute worsening of left hemiparesis found to have acute ischemia in the right MCA distribution. Stroke mechanism is felt to beathero-embolic from her diffuse aortic arch atheroma. She has had extensive left MCA territorial infarcts as well as new right MCA territorial infarcts in the past 2 months. No acute events overnight. Last BM 12/29. She reports sleeping well last night. This morning she notes bruising on the right lower quadrant of her abdomen. She denies any history of drop isn't area. She reports she thinks this is from her daily Lovenox shots. Continues to be limited by lower extremity strength, needing to complete grooming from a seated position. Was able to ambulate about 50 m with PT in a FWW and contact guard assistance. OBJECTIVE Temperature: [36.4 ??C-36.6 ??C] 36.6 ??C Resp Rate: [15-16] 16 Blood Pressure: (130-159)/(60-75) 134/75 SpO2: [97 %-99 %] 97 % Weight: [69.4 kg] 69.4 kg BMI (Calculated): [28 kg/m??] 28 kg/m?? Physical Exam GENERAL: Alert. No acute distress. Conversant. HEENT: Normocephalic, atraumatic. Oral cavity and tongue are unremarkable. Respiratory: No increased work of breathing SKIN: Exposed areas of skin are clean, dry, and intact with no evidence of cellulitis, pressure ulcers, or necrosis. NEUROLOGICAL EXAM: MENTAL STATUS: Grossly oriented with appropriate mood and affect. Diagnostics I reviewed the imaging studies and agree with the interpretation as recorded. I reviewed the pertinent laboratory data and diagnostic data. ASSESSMENT / PLAN Updates: DC lovenox # Acute/subacute right frontal strokes # Left hemiparesis # History of right MCA territory infarcts November 2023 with good functional recovery # Hypertension # Functional limitations in mobility, self-cares, and prior roles secondary to impairments listed above and below - Admit to inpatient rehabilitation - Blood Pressure goal: SBP <180 - BG Goal: 140-180 - 30-days dual antiplatelet therapy with aspirin 81 mg daily and Brilinta 90 mg twice daily for 30 days (End date 01/22/2024) - Continue home losartan 50 mg - Neurology stroke follow-up arranged for January 26 - 30-day probate lawyer ongoing for atrial fibrillation evaluation # Hyperlipidemia -Continue rosuvastatin 20 mg # Chronic neck pain # Right trochanteric bursitis (previous right SPEEDY) - acetaminophen 650 mg q.6 hours as needed - lidocaine patch - triple cream - continue home oxycodone 5 mg at bedtime # anxiety - hydroxyzine 10 mg p.r.n. # abdominal bruising - prn acetaminophen - Warm/cold compresses FULL CODE as discussed with patient. Diet: Regular DVT prophylaxis: Heparin --> Lovenox Bowel: bowel medication regimen Bladder: voiding; will do bladder scan PVR's to rule out retention, I/O cath for PVR > 250cc Disposition: 12/31; goal to home Associated attestation - Arian Ruiz M.D. - 12/30/2023 2:06 PM CDT I saw and evaluated the patient, participating in the espinoza portions of the service. I reviewed the note of Dr. Pepoles. I agree with the resident/fellow???s findings and plan. Ms. Gordon is capable of participating in rehabilitation. She continues to progress towards functional independence in the area(s) of mobility, self-care, and cognition and will benefit from ongoing intensive inpatient rehabilitation. Ms. Gordon has developed a right abdominal bruise from the Lovenox injections. She is ambulating quite well so will discontinue the Lovenox. Otherwise, there are no new medical issues and she should be ready for dismissal with her this Thursday. Arian Ruiz M.D. * Kristy Silva - 12/29/2023 3:08 PM CDT Occupational Therapy [facility] Inpatient Progress Note SUBJECTIVE Patient's Name: Latonya Gordon Reason for Referral: OT Eval & Treat- IRF Medical Diagnosis: 1. Stroke (HCC) [I63.9] 2. Lack Of Coordination [R27.9] 3. 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 She describes these migraines as lasting no more than 10 minutes, relieved by lying down and sometimes occurring in the R side. Furthermore, she experiences fluttery vision which she describes a zig-zag pattern in her vision. This time the migraine did not resolve within 10 minutes and she noticed L arm and hand tingling, numbness and weakness that got worse overtime. On 11/21/23, pt went to [facility] and had a CT scan which did not identify a stroke. She was discharged home the same day but her symptoms did not improve. On 11/25/23, pt described her arm going numb suddenly while having lunch. She also describes face numbness on her left tongue and cheek that intermittently resolved. The same day she had an appointment with her family doctor, who arranged emergency transportation [place] [facility] [place]. [place] her L upper extremity hemiparesis recovered almost back to normal. On 12/17/23, pt noted weakness and numbness in her L lower extremity when exiting her vehicle. She describes her movement as her leg dragging on the ground and felt her leg buckle. At this point, the Lupper extremity was mostly back to baseline with mild numbness. The numbness in her face occurred in termittently. Following this event she went to [facility]'s ED. After being evaluated by [facility] ED, she was discharged home. She describes being able to walk with a cane. Over the following day the symptoms in her left lower extremity worsened. On 12/21/23, her left lower extremity felt so weak and numb that she could not walk from her bed to her bathroom. On 12/22/23, [facility] [place] [facility]. Stroke etiology is still unclear but include symptomatic carotid stenosis and cardioembolic. Patient had CT angiogram and MR angiogram of head and neck which showed 25-30% stenosis of right proximal ICA with a thin rim of peripheral calcification. Now admitted to IRF 5/18for further progression of therapeutic goals. Onset Date: 12/22/23 Patient/Caregiver Goals: Return home safely with assistance of . Patient Comments: Patient verbally agreed to therapy and treatment plan Precautions Other Precautions: Fall Risk. L hemiparesis (leg>arm). Fall Risk (65 and older) Fall in the last 12 months: No Fall Risk Comments: Instability. L lower extremity weakness. OBJECTIVE Pain: 0/10 Grooming Grooming Location: Standing at sink Grooming Delivery: Assessed Grooming Level of Assistance: Supervision/Set-up Grooming Comments: Patient able to complete oral hygiene and wash face standing at sink using frontwheeled walker. Uses bilateral upper extremities through out task and required no physical assistance to complete. Bathing Bathing Location: Seated in shower Bathing Delivery: Assessed, Therapist Assisted Bathing Adaptive Equipment: Hand-held shower head Body Parts Included in Task: Chest, Right arm, Left arm, Abdomen, Perineal area, Right upper leg, Buttocks, Left upper leg, Right lower leg, Left lower leg Bathing Level of Assistance: Supervision/Set-up Bathing Comments: Patient completed bathing primarily in seated position. Patient required cueing when standing unprompted to return to sitting position since a gait belt was not being worn in the shower, but demonstrated good use of grab bars. Required intermittent assistance for shower head management, but patient able to wash self and dry with no physical assistance. UE Dressing UE Dressing Delivery: Assessed, Therapist Assisted UE Dressing Items Included: change over shirt, Bra UE Dressing Level of Assistance: Supervision/Set-up UE Dressing Location: Chair (bedside chair) UE Dressing Comments: Patient able to retrieve clothes from closet and hand to therapist. Will trial walker basket in future sessions. Donned bra with intermittent assistance for strap management, but otherwise pulled over a quarter zip sweatshirt with no physical assistance. LE Dressing LE Dressing Location: Chair (bedside recliner) LE Dressing Delivery: Assessed, Instructed, Educated, Facilitated LE Dressing Adaptive Equipment: Fire And Safety Helper, Long shoe horn LE Dressing Items Included: Shoes, Pants, Underwear/Adult incontinence briefs LE Dressing Level of Assistance: Supervision/Set-up LE Dressing Comments: Trialed use of head bookkeeper to don underwear. Patient able to demonstrate effectively and reported ease of use when performing. She initially used it to don pants, but reported not needing it and was able to thread pants in using somehwta of figure four technique. No loss of balance observed. Able to slip-on shoes when set in front of her, and used shoe horn to assist donning left foot. In standing, able to fully don clothing items over hips with contact guard assistance and using the front wheeled walker to achieve standing. Sit to Stand Transfers # of Assistants: 1 Transfer Surface: Chair Transfer Equipment: Gait belt, Front wheeled walker Level of Assistance: Contact guard assistance Assessment/Delivery: Assessed Stand to Sit Transfers # of Assistants: 1 Transfer Surface: Chair Transfer Equipment: Gait belt, Front wheeled walker Level of Assistance: Contact guard assistance Assessment/Delivery: Assessed Bath Transfers # of Assistants: 1 Transfer Type: Walk-in shower Transfer Approach: To and from, Ambulating Transfer Equipment: Front wheeled walker (drop-down shower bench) Level of Assistance: Contact guard assistance Assessment/Delivery: Assessed Delivery Consultant/Pinch Muscle testing through the use of isokinetic dynamometry is considered to be the gold standard approach for the assessment of muscle strength. Patient participated in assessment of hand strength testing today. Right Hand Strength - Pinch (kg) Lateral - Score 1 (kg): 5 kg Lateral - Score 2 (kg): 5.5 kg Lateral - Score 3 (kg): 6 kg Lateral - Score Final (kg): 5.5 kg Tip (2 point) - Score 1 (kg): 5 kg Tip (2 point) - Score 2 (kg): 4.5 kg Tip (2 point) - Score 3 (kg): 5 kg Tip (2 point) - Final Score (kg): 4.83 kg Tripod (3 point) - Score 1 (kg): 4.5 kg Tripod (3 point) - Score 2 (kg): 4.5 kg Tripod (3 point) - Score 3 (kg): 5.5 kg Tripod (3 point) - Final Score (kg): 4.83 kg Left Hand Strength - Pinch (kg) Lateral - Score 1 (kg): 4.5 kg Lateral - Score 2 (kg): 5.5 kg Lateral - Score 3 (kg): 5 kg Lateral - Score Final (kg): 5 kg Tip (2 point) - Score 1 (kg): 4 kg Tip (2 point) - Score 2 (kg): 4 kg Tip (2 point) - Score 3 (kg): 4 kg Tip (2 point) - Final Score (kg): 4 kg Tripod (3 point) - Score 1 (kg): 4 kg Tripod (3 point) - Score 2 (kg): 4 kg Tripod (3 point) - Score 3 (kg): 5.5 kg Tripod (3 point) - Final Score (kg): 4.5 kg Richford Making Test Richford making assessments require a variety of cognitive processes, including attention, visual search, scanning, sequencing, shifting, psychomotor speed, abstraction, cognitive flexibility, the ability to execute and modify a plan of action, and the ability to maintain two trains of thought simultaneously. Richford A is a simple trail making task. Average performance requires task completion in 29 seconds.Today, patient completed Richford A in 47 seconds. Patient demonstrated 0 errors during task performance. Richford B introduces an alternating condition. The average individual is able to complete Richford B within 75 seconds. When discussing return to driving, research literature recommends a cut off score of90 seconds. Today, patient completed Richford B in 80 seconds, which is below the cutoff score for deficiency. Patient demonstrated 0 errors during task performance. Assessment was administered today with paper and pencil via standardized form. Patient/Family Education: brief introduction to bathroom safety Education Provided to: Latonya and spouse Learner's Response: Requires continued education At the end of today's therapy session patient was left seated in a wheelchair with an appropriate call light within reach. Patient's needs and questions addressed during today's session. Assessment Patient demonstrated good participation in today's treatment session on 12/29/2023. Requires only intermittent physical assistance to complete ADLs, such as managing the shower head while washing or untwisting her bra strap. We will continue to trial adaptive equipment that works best for her to complete dressing with decreased pain, and successfully used a head bookkeeper to don underwear and some pants.No significant differences were noted in pinch strength of the right and left hand, but we will continue to use bilateral tasks to target decreased coordination of left upper extremity. Patient reports wanting to return to driving, and based on Trails AB times, we will continue to target return to driving and continue into outpatient. Patient is performing below functional baseline and requires skilled OT to address listed deficits and optimize safety and independence with activities of daily living and instrumental activities of daily living for dismissal to home. Barriers to Discharge Home: Current functional status, Fall risk, Safety concerns Personal Factors: Balance impairment, Hearing impairment, Needs assistive device, Safety awareness Discharge Therapy Needs - OT: Ongoing skilled occupational therapy Level of Care Needed - OT: Assistance with toileting, Assistance with toilet/shower transfers, Assistance with medication set up/administration, Assistance with showering/bathing, Assistance with peoplesoft financial developer, Assistance with meal preparation, Assistance with dressing, Assistance with eating/feeding, Assistance with transportation, Assistance with housekeeping, Assistance with shopping, Physical assistance needed Recommended Adaptive Equipment - OT: Other (Comment) (ongoing assessment) Functional Goals and Timeframes: OT Goal #1: By next ITC, pt will complete full grooming routine standing with contact guard assistance in order to promote increased independence in ADL/IADL tasks. OT Goal #1 Status: Progressing (12/28: completed at sink, will monitor consistent performance) OT Goal #2: By next ITC, pt will complete toilet transfer and toileting with no more than minimal assistance in order to promote increased independence in ADL/IADL tasks. OT Goal #2 Status: Progressing (12/28: goal not addressed today) OT Goal #3: By discharge, pt will demonstrate shower transfer with no more than contact guard assistance in simulated home environment in order to promote increased independence in ADL/IADL tasks. OT Goal #3 Status: Progressing (12/28: goal not addressed today) OT Goal #4: By discharge, pt will demonstrate understanding regarding recommended equipment, strategies and level of assist needed in order to promote increased independence in ADL/IADL tasks. OT Goal #4 Status: Progressing (12/28: began education into dressing strategies- use of head bookkeeper, pt also brought in sock aid from home) Progress: Progressing toward goals Plan Patient agrees with the plan of care and goals. Treatment Plan: OT Frequency: 5 times per week OT Amount: 2 visits per day Plan: Continue with current plan OT Plan Comments: weds. 12/29: dressing, grooming, continued return to driving interventions Treatment interventions may include: Treatment Interventions: Therapeutic exercise, Therapeutic functional activity, Neuromuscular re-education, Self-care/home management, Cognitive skills training, Therapeutic modalities as needed Time Spent with Patient Therapeutic Interventions Home Management Training (min): 80 min Therapeutic Exercise (min): 10 min Time Tracking Total Timed Units (min): 90 min Total Treatment Time (min): 90 min OT Individual: 90 Minutes JOSE Priest Associated attestation - Debra Torres M.S., O.T., O.T.D. - 12/30/2023 1:04 PM CDT This therapist has reviewed all documentation and supervised today???s session. The therapist agrees with the plan developed in collaboration with the patient. * Marge Birch P.T., M.H.A. - 12/29/2023 12:39 PM CDT Physical Therapy [facility] Inpatient Treatment SUBJECTIVE Patient's Name: Latonya Gordon Reason for Referral: Inpatient Rehab Facility Physical Therapy Eval & Treat; JES[facility] Medical Diagnosis: 1. Stroke (HCC) [I63.9] 2. Lack Of Coordination [R27.9] 3. 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 She describes these migraines as lasting no more than 10 minutes, relieved by lying down and sometimes occurring in the R side. Furthermore, she experiences fluttery vision which she describes a zig-zag pattern in her vision. This time the migraine did not resolve within 10 minutes and she noticed L arm and hand tingling, numbness and weakness that got worse overtime. On 11/21/23, pt went to [facility] and had a CT scan which did not identify a stroke. She was discharged home the same day but her symptoms did not improve. On 11/25/23, pt described her arm going numb suddenly while having lunch. She also describes face numbness on her left tongue and cheek that intermittently resolved. The same day she had an appointment with her family doctor, who arranged emergency transportation to [facility]'s [place] her L upper extremity hemiparesis recovered almost back to normal. On 12/17/23, pt noted weakness and numbness in her L lower extremity when exiting her vehicle. She describes her movement as her leg dragging on the ground and felt her leg buckle. At this point, the Lupper extremity was mostly back to baseline with mild numbness. The numbness in her face occurred in termittently. Following this event she went to [facility]'s ED. After being evaluated by [facility]'s ED, she was discharged home. She describes being able to walk with a cane. Over the following day the symptoms in her left lower extremity worsened. On 12/21/23, her left lower extremity felt so weak and numb that she could not walk from her bed to her bathroom. On 12/22/23, she arrived to [place] EDfor workup and management. Stroke etiology is still unclear but include symptomatic carotid stenosis and cardioembolic. Patient had CT angiogram and MR angiogram of head and neck which showed 25-30% stenosis of right proximal ICA with a thin rim of peripheral calcification. Now admitted to IRF or further progression of therapeutic goals. Onset Date: 12/22/23 Patient/Caregiver Goals: Return home safely with assistance of . Patient Comments: Pt reports I feel like Im more tired today... not sure why Precautions Other Precautions: Fall Risk. L hemiparesis (leg>arm). OBJECTIVE Pain: 0/10 Vitals: Not indicated at this time Bed Mobility - Supine to Sit # of Assistants: 1 Level of Assistance: Supervision/Set-up, Minimal assistance Device: None Cuing: Verbal, Tactile Comments: Verbal cues for teaching logroll technique, and light touching assist Bed Mobility - Sit to Supine # of Assistants: 1 Level of Assistance: Supervision/Set-up, Minimal assistance Device: None Cuing: Verbal Comments: Verbal cues for logroll technique, and light touching assist Sit to Stand Transfers # of Assistants: 1 Transfer Surface: Chair, Therapy mat Transfer Equipment: Gait belt, Front wheeled walker Level of Assistance: Supervision/set-up Assessment/Delivery: Assessed Comments: Performed multiple times in a.m. and p.m. sessions Stand to Sit Transfers # of Assistants: 1 Transfer Surface: Bed, Therapy mat Level of Assistance: Supervision/set-up Assessment/Delivery: Assessed Comments: Performed multiple times in a.m. and p.m. sessions Bed, Chair, Wheelchair Transfers # of Assistants: 1 Transfer Surface: Chair Transfer Approach: To and from, Ambulating Transfer Equipment: Front wheeled walker Level of Assistance: Supervision/ Set-up Assessment/Delivery: Assessed Gait Assessment/Training Distance (m): 48.8 m (X2 repetitions during a.m. session; ) Surface: Even, Smooth/hard Device: Gait belt, Front-wheeled walker # of Assistants: 1 Level of Assistance: Supervision/Set-up Quality/Pattern: Decreased heel strike, Decreased toe off Assessment of Gait: Patient ambulated using a front wheeled walker. Step lengths are fairly even. She intermittently demonstrates decreased step length with left foot, for which patient able to self-correct. Patient with mild scoliosis and subsequent mild forward trunk lean as well as upper trunk right shift on pelvis throughout gait Cueing Provided: Verbal, Tactile, Visual Training/Intervention: Therapist provided cues for heel strike on the left and encouraged pacing, as well as taking standing rest break, as needed. Response: Good tolerance for increased distance ambulation with a.m. session; Some mild complaints of dizziness at end of trial with trekking poles during p.m. session. Stairs/Curb # Stairs: 8 Step Height (in): 6 in Rails: 2 Device: No device # of Assistants: 1 Level of Assistance: Supervision/Set-up Stair Navigation Pattern-Ascending: Step-to pattern, Reciprocal pattern Stair Navigation Lead Foot-Ascending: Right Stair Navigation Pattern-Descending: Step-to pattern Stair Navigation Lead Foot-Descending: Left Cueing Provided: Verbal, Tactile Training/Intervention: Patient required 1 verbal cues for properly sequencing left lower extremity 1st for descending steps. Spouse present for family training in able to verbalize ???role of heaven?? for ascending and descending stairs, which he states he learned in previous PT. Response: Good tolerance for navigating 8 steps, with no complain of pain or discomfort. Supine Exercise - Side Addressed: Left, Right Supine Exercise: Hip ABduction/ADduction, Bridging Exercise Mode: Active motion against gravity Sets/Repetitions: /10 Supine Exercise 1: marching in hooklying with coordinated core contraction throughout; 10 repetitions each lower extremity, alternating Supine Exercise 2: Hook lying for hip abduction utilizing green Thera-Band around knees, 10 times with 3 seconds holds Supine Exercise 3: Hook lying hip adduction utilizing small red ball, 10 times with 3 seconds holds Seated Exercise: Long arc quads, Marching Sets/Repetitions: One set, 10 repetitions Seated Exercise Comments: LAQ's with active dorsiflexion; co-contraction of core & postural musculature for upright trunk throughout Strengthening (UE) Side Addressed: Bilateral Exercise Position: Supine, Seated Resistance Type: Elastic resistance band Cuing Provided: Verbal, Visual Therapeutic Exercise Delivery: Assessed, Instructed, Educated, Facilitated Shoulder Specific Movements/Exercises: Extension, Horizontal abduction Shoulder Specific Movements/Exercises Comments: Hooklying for bilat. shoulder extension w/ Green TBresistance, w/ co-contraction of core musculature, 10x's; sitting horizontal abduction w/ 'row' motion, with Green TB resistance, w/ co- contraction of core musculature & emphasis on upright trunkposture, 10x's. Equipment Use Nu Step Comments: Nu-step for conditioning, left LE neuromuscular reeducation and brain benefits from cardiovascular exercise. Using both UE's & LE's, she did 10 min on level 1, 0.22 miles, Avg SPM= 40. Patient/Family Education: importance of resistive ex's to maintain / gain muscle strength and counter age related muscle loss; importance of daily exercise participation; explanation of each intervention as it relates to patients' goals. Education Provided to: Latonya Learner's Response: Able to teach back, Able to demonstrate, Requires cueing, and Requires continued education At the end of today's therapy session patient was left in bed following AM session, with an appropriate call light within reach. Patient's needs and questions addressed during today's session. Assessment Patient continues to demonstrate steady progress toward functional goals. Performed family trainingwith patient's spouse during p.m. session, including performance of car transfers and stairs, whichpatient demonstrated with supervision and setup assistance for car transfer, as she requires 8 in step to back herself up onto 32 in high car seat. Patient and spouse both verbalized good awareness and problem-solving together for car transfers. Patient continues to function below her baseline and we will continue to benefit from skilled PT to further progress functional strength, standing tolerance, standing balance, progressive ambulation training and activity tolerance, to allow for maximizing independence and decreasing risk for falls for discharge home. 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 PT Goal #1 Date: 01/01/24 PT Goal #1 Status: Progressing PT Goal #2: STG: Patient well negotiate 8 steps using bilateral railings with contact guard assistance in a reciprocal pattern. PT Goal #2 Date: 01/01/24 PT Goal #2 Status: Progressing PT Goal #3: LTG: Patient will ambulate household distances with least restrictive assistive device with supervision to promote a safe discharge. PT Goal #3 Date: 01/07/24 PT Goal #3 Status: Progressing PT Goal #4: LTG: Patient will ambulate a flight of stairs using a hand rail with standby assistanceto promote a safe discharge. PT Goal #4 Date: 01/07/24 PT Goal #4 Status: Progressing Plan Patient agrees with the plan of care and goals. Treatment Plan: PT Frequency: 6 times per week PT Amount: 2 visits per day PT Inpatient Duration : Until goals are met or hospital discharge Plan: Continue with current plan PT Plan Comments: Progressive therapeutic functional activities, neuromuscular re-education for left side, gait and balance training, stair training, patient/family Education Treatment interventions may include: Treatment/Interventions: Therapeutic exercise, Therapeutic functional activity, Neuromuscular re-education, Gait training Other PT Interventions: Progressive therapeutic functional activities, neuromuscular re-education for left side, gait and balance training, stair training, patient/family Education Time Spent with Patient Therapeutic Interventions Gait Training (min): 40 min Therapeutic Activity (min): 25 min Therapeutic Exercise (min): 25 min Time Tracking Total Timed Units (min): 90 min Total Treatment Time (min): 90 min PT Individual : 90 Minutes Marge Birch P.T., M.H.A. * Millie Peoples D.O. - 12/29/2023 7:14 AM CDT SUBJECTIVE Mrs. Latonya Gordon is an 83-year-old, right-hand dominant female from [place], [place]. Her medical history includes hypertension, hyperlipidemia, chronic pain and right MCA territory infarcts sustainedin November 2023. She presented to the Emergency Department on December 16 with acute worsening of left hemiparesis found to have acute ischemia in the right MCA distribution. Stroke mechanism is felt to beathero-embolic from her diffuse aortic arch atheroma. She has had extensive left MCA territorial infarcts as well as new right MCA territorial infarcts in the past 2 months. No acute events overnight. Last BM 12/26. She is cognitively doing well, ART LIBRARIAN has signed off. She does require moderate assistance with self cares due to arm weakness. Occupational therapy has been working on independent dressing. This morning we discussed her home going medications for blood thinners. She has questions about how long her Brilinta will last and if it was safe to just be an aspirin. I answered the questions to the best of my ability. Yesterday only recorded p.o. intake of 420 mL. I encouraged her to drink more today. She currently is on a gluten free diet. She reports that she although she tries to eat gluten free she would prefer to be on a regular diet in the hospital. Multidisciplinary discharge planning rounds: I participated in multidisciplinary discharge planning rounds today. Attendees included: patient, physician, bedside nurse, customer care manager, physical therapist, and occupational therapist. Medical updates were provided. Also discussed was progress toward patient centered goals, ongoing rehabilitation needs and dismissal planning. OBJECTIVE Temperature: [36.2 ??C-36.6 ??C] 36.2 ??C Resp Rate: [15-16] 16 Blood Pressure: (122-159)/(45-76) 122/45 SpO2: [95 %-98 %] 95 % Physical Exam GENERAL: Alert. No acute distress. Conversant. HEENT: Normocephalic, atraumatic. Oral cavity and tongue are unremarkable. Respiratory: No increased work of breathing SKIN: Exposed areas of skin are clean, dry, and intact with no evidence of cellulitis, pressure ulcers, or necrosis. NEUROLOGICAL EXAM: MENTAL STATUS: Grossly oriented with appropriate mood and affect. Diagnostics I reviewed the imaging studies and agree with the interpretation as recorded. I reviewed the pertinent laboratory data and diagnostic data. ASSESSMENT / PLAN Updates: Encourage fluid intake She prefers to have a regular diet instead of gluten free. # Acute/subacute right frontal strokes # Left hemiparesis # History of right MCA territory infarcts November 2023 with good functional recovery # Hypertension # Functional limitations in mobility, self-cares, and prior roles secondary to impairments listed above and below - Admit to inpatient rehabilitation - Blood Pressure goal: SBP <180 - BG Goal: 140-180 - 30-days dual antiplatelet therapy with aspirin 81 mg daily and Brilinta 90 mg twice daily for 30 days (End date 01/22/2024) - Continue home losartan 50 mg - Neurology stroke follow-up arranged for January 26 - 30-day probate lawyer ongoing for atrial fibrillation evaluation # Hyperlipidemia -Continue rosuvastatin 20 mg # Chronic neck pain # Right trochanteric bursitis (previous right SPEEDY) - acetaminophen 650 mg q.6 hours as needed - lidocaine patch - triple cream - continue home oxycodone 5 mg at bedtime # anxiety - hydroxyzine 10 mg p.r.n. FULL CODE as discussed with patient. Diet: Regular DVT prophylaxis: Heparin --> Lovenox Bowel: bowel medication regimen Bladder: voiding; will do bladder scan PVR's to rule out retention, I/O cath for PVR > 250cc Disposition: 12/31; goal to home Associated attestation - Arian Ruiz M.D. - 12/29/2023 11:21 AM CDT I saw and evaluated the patient, participating in the espinoza portions of the service. I reviewed the note of Dr. Peoples. I agree with the resident/fellow???s findings and plan. Ms. Gordon is capable of participating in rehabilitation. She continues to progress towards functional independence in the area(s) of mobility, self-care, and cognition and will benefit from ongoing intensive inpatient rehabilitation. I reviewed the patient with the rehab team on interdisciplinary bedside rounds. She has made significant functional progress and should be safe to dismiss home with her on this Thursday. She will initially be using the walker but will have outpatient therapies and can hopefully transition to no gait aid. It also was noted that she has done extremely well with cognitive testing. Medically, there are no new medical issues; her vital signs are stable. I reviewed stroke prevention with her including monitoring her blood pressure at home and medications. Arian Ruiz M.D. * Marge Birch P.T., M.H.A. - 12/28/2023 5:30 PM CDT [facility] SUBJECTIVE Patient's Name: Latonya Gordon Reason for Referral: Inpatient Rehab Facility Physical Therapy Eval & Treat; [facility] Medical Diagnosis: 1. Stroke (HCC) [I63.9] 2. Lack Of Coordination [R27.9] 3. 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 She describes these migraines as lasting no more than 10 minutes, relieved by lying down and sometimes occurring in the R side. Furthermore, she experiences fluttery vision which she describes a zig-zag pattern in her vision. This time the migraine did not resolve within 10 minutes and she noticed L arm and hand tingling, numbness and weakness that got worse overtime. On 11/21/23, pt went to [facility] and had a CT scan which did not identify a stroke. She was discharged home the same day but her symptoms did not improve. On 11/25/23, pt described her arm going numb suddenly while having lunch. She also describes face numbness on her left tongue and cheek that intermittently resolved. The same day she had an appointment with her family doctor, who arranged emergency transportation [place] [facility] [place] her L upper extremity hemiparesis recovered almost back to normal. On 12/17/23, pt noted weakness and numbness in her L lower extremity when exiting her vehicle. She describes her movement as her leg dragging on the ground and felt her leg buckle. At this point, the Lupper extremity was mostly back to baseline with mild numbness. The numbness in her face occurred in termittently. Following this event she went to [facility]'s ED. After being evaluated by [facility]'s ED, she was discharged home. She describes being able to walk with a cane. Over the following day the symptoms in her left lower extremity worsened. On 12/21/23, her left lower extremity felt so weak and numb that she could not walk from her bed to her bathroom. On 12/22/23, [facility] [place] [facility]. Stroke etiology is still unclear but include symptomatic carotid stenosis and cardioembolic. Patient had CT angiogram and MR angiogram of head and neck which showed 25-30% stenosis of right proximal ICA with a thin rim of peripheral calcification. Now admitted to IRF 5/18for further progression of therapeutic goals. Onset Date: 12/22/23 Patient/Caregiver Goals: Return home safely with assistance of . Patient Comments: Pt agreeable for PT in am & pm sessions; expressed desire to go home by end of week. Precautions Other Precautions: Fall Risk. L hemiparesis (leg>arm). OBJECTIVE Pain: 0/10 Vitals: BP: 147/57; MAP=79 Bed Mobility - Supine to Sit # of Assistants: 1 Level of Assistance: Minimal assistance Device: None Cuing: Verbal, Tactile Comments: Verbal cues for teaching logroll technique, and light touching assist Bed Mobility - Sit to Supine # of Assistants: 1 Level of Assistance: Minimal assistance Device: None Cuing: Verbal, Tactile Comments: Verbal cues for logroll technique, and light touching assist Sit to Stand Transfers # of Assistants: 1 Transfer Surface: Chair, Wheelchair, Other (Therapy mat) Transfer Equipment: Front wheeled walker, Gait belt Level of Assistance: Supervision/set-up Assessment/Delivery: Assessed, Instructed Stand to Sit Transfers # of Assistants: 1 Transfer Surface: Chair, Other, Wheelchair (Therapy mat) Transfer Equipment: Gait belt, Front wheeled walker Level of Assistance: Minimal assistance Assessment/Delivery: Assessed, Instructed, Therapist assisted, Educated Comments: Cues for hand placement, alignment in front of the wheelchair, controlled sitting as patient tends to plop. Bed, Chair, Wheelchair Transfers # of Assistants: 1 Transfer Surface: Chair, Wheelchair Transfer Approach: Ambulating, To and from Transfer Equipment: Front wheeled walker Level of Assistance: Contact guard assistance, Supervision/ Set-up Assessment/Delivery: Assessed, Facilitated Comments: Contact guard assist initially, fading to supervised Gait Assessment/Training Distance (m): 48.8 m (X2 repetitions during a.m. session; 6.1m in pm session) Surface: Even, Smooth/hard Device: Gait belt, Front-wheeled walker # of Assistants: 1 Level of Assistance: Contact guard assistance Quality/Pattern: Decreased heel strike, Decreased toe off Assessment of Gait: Patient ambulated using a front wheeled walker. Step lengths were shortened butfairly even. She intermittently demonstrates decreased step length with left foot, for which patient able to self-correct. Patient with mild scoliosis and subsequent mild forward trunk lean as well as upper trunk right shift on pelvis throughout gait Cueing Provided: Verbal, Tactile, Visual Training/Intervention: Therapist provided cues for heel strike on the left. Contact guard assistance provided for steadying assistance, fading to supervision; in pm session, trialed short distance, 20 ft, using trekking poles, for which patient required Min assist and mod cues for sequencing and balance Response: Good tolerance for increased distance ambulation with a.m. session; Some mild complaints of dizziness at end of trial with trekking poles during p.m. session. Stairs/Curb # Stairs: 4 Step Height (in): 6 in Rails: 2 Device: No device # of Assistants: 1 Level of Assistance: Contact guard assistance Stair Navigation Pattern-Ascending: Step-to pattern, Reciprocal pattern Stair Navigation Lead Foot-Ascending: Right Stair Navigation Pattern-Descending: Step-to pattern Stair Navigation Lead Foot-Descending: Left Cueing Provided: Verbal, Tactile Training/Intervention: Patient required cues for sequencing and which lower extremity to use 1st with ascending and descending, as she did not recall from weekend session. Response: Good tolerance for navigating 4 steps, with no complain of pain or discomfort. Supine Exercise - Side Addressed: Left, Right Supine Exercise: Hip ABduction/ADduction, Bridging Exercise Mode: Active motion against gravity Sets/Repetitions: /10 Supine Exercise 1: marching in hooklying with coordinated core contraction throughout; 10 repetitions each lower extremity, alternating Supine Exercise 2: Hook lying for hip abduction utilizing green Thera-Band around knees, 10 times with 3 seconds holds Supine Exercise 3: Hook lying hip adduction utilizing small red ball, 10 times with 3 seconds holds Seated Exercise: Long arc quads Sets/Repetitions: One set, 10 repetitions Patient/Family Education: Purpose of each PT intervention, as it relates to patient's functional goals Education Provided to: Latonya Learner's Response: Able to demonstrate, Requires cueing, and Requires continued education At the end of today's therapy session patient was left seated in a wheelchair with an appropriate call light within reach. Patient's needs and questions addressed during today's session. Assessment Patient demonstrating good progress functional mobility, as evidenced by increased ambulation distance with use of front wheel walker, and decreased need for physical assist for steadying balance with use of walker. Patient continues to function below her baseline and will continue to benefit from skilled PT to facilitate neuromuscular return, improve balance, progress functional independence with device and decrease risk falls with plan for home going. 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 PT Goal #1 Date: 01/01/24 PT Goal #1 Status: Progressing PT Goal #2: STG: Patient well negotiate 8 steps using bilateral railings with contact guard assistance in a reciprocal pattern. PT Goal #2 Date: 01/01/24 PT Goal #2 Status: Progressing PT Goal #3: LTG: Patient will ambulate household distances with least restrictive assistive device with supervision to promote a safe discharge. PT Goal #3 Date: 01/07/24 PT Goal #3 Status: Progressing PT Goal #4: LTG: Patient will ambulate a flight of stairs using a hand rail with standby assistanceto promote a safe discharge. PT Goal #4 Date: 01/07/24 PT Goal #4 Status: Progressing Plan Patient agrees with the plan of care and goals. Treatment Plan: PT Frequency: 6 times per week PT Amount: 2 visits per day PT Inpatient Duration : Until goals are met or hospital discharge Plan: Continue with current plan PT Plan Comments: Progressive therapeutic functional activities, neuromuscular re-education for left side, gait and balance training, stair training, patient/family Education Treatment interventions may include: Treatment/Interventions: Therapeutic exercise, Therapeutic functional activity, Neuromuscular re-education, Gait training Other PT Interventions: Progressive therapeutic functional activities, neuromuscular re-education for left side, gait and balance training, stair training, patient/family Education Time Spent with Patient Therapeutic Interventions Gait Training (min): 40 min Therapeutic Activity (min): 35 min Therapeutic Exercise (min): 15 min Time Tracking Total Timed Units (min): 90 min Total Treatment Time (min): 90 min PT Individual : 90 Minutes Marge Birch P.T., M.H.A. * Kristy Silva - 12/28/2023 5:22 PM CDT Occupational Therapy [facility] Inpatient Progress Note SUBJECTIVE Patient's Name: Latonya Gordon Reason for Referral: OT Eval & Treat- IRF Medical Diagnosis: 1. Stroke (HCC) [I63.9] 2. Lack Of Coordination [R27.9] 3. 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 She describes these migraines as lasting no more than 10 minutes, relieved by lying down and sometimes occurring in the R side. Furthermore, she experiences fluttery vision which she describes a zig-zag pattern in her vision. This time the migraine did not resolve within 10 minutes and she noticed L arm and hand tingling, numbness and weakness that got worse overtime. On 11/21/23, pt went to [facility] and had a CT scan which did not identify a stroke. She was discharged home the same day but her symptoms did not improve. On 11/25/23, pt described her arm going numb suddenly while having lunch. She also describes face numbness on her left tongue and cheek that intermittently resolved. The same day she had an appointment with her family doctor, who arranged emergency transportation to [facility] [place] her L upper extremity hemiparesis recovered almost back to normal. On 12/17/23, pt noted weakness and numbness in her L lower extremity when exiting her vehicle. She describes her movement as her leg dragging on the ground and felt her leg buckle. At this point, the Lupper extremity was mostly back to baseline with mild numbness. The numbness in her face occurred in termittently. Following this event she went to [facility]'s ED. After being evaluated by [facility]'s ED, she was discharged home. She describes being able to walk with a cane. Over the following day the symptoms in her left lower extremity worsened. On 12/21/23, her left lower extremity felt so weak and numb that she could not walk from her bed to her bathroom. On 12/22/23, she arrived to [place] EDfor workup and management. Stroke etiology is still unclear but include symptomatic carotid stenosis and cardioembolic. Patient had CT angiogram and MR angiogram of head and neck which showed 25-30% stenosis of right proximal ICA with a thin rim of peripheral calcification. Now admitted to IRF or further progression of therapeutic goals. Onset Date: 12/22/23 Patient/Caregiver Goals: Return home safely with assistance of . Patient Comments: Patient verbally agreed to therapy and treatment plan Precautions Other Precautions: Fall Risk. L hemiparesis (leg>arm). Fall Risk (65 and older) Fall in the last 12 months: No Fall Risk Comments: Instability. L lower extremity weakness. OBJECTIVE Pain: 0/10 Grooming Grooming Location: Standing at sink, Seated at sink, Wheelchair Grooming Delivery: Assessed, Therapist assisted Grooming Level of Assistance: Supervision/Set-up Grooming Comments: Patient completed oral hygiene and washed face standing at sink using front wheeled walker. Required no physical assistance. Completed hair care using heated round brush seated in wheelchair. Able to manage brush independently- plugging into outlet, utilizing tool, unplugging, etc. UE Dressing UE Dressing Delivery: Assessed UE Dressing Items Included: Button down shirt, Bra UE Dressing Level of Assistance: Supervision/Set-up UE Dressing Location: Chair (beside recliner) UE Dressing Comments: Patient retrieved clothes from closet and handed to therapist. Able to doff old bra and don new one with intermittent touching assistance when requested by patient. Able to don shirt and button using bilateral hands with no assistance. LE Dressing LE Dressing Location: Chair (bedside chair) LE Dressing Delivery: Assessed, Instructed, Therapist Assisted LE Dressing Adaptive Equipment: Walker LE Dressing Items Included: Socks, Shoes, Pants, Underwear/Adult incontinence briefs LE Dressing Level of Assistance: Moderate assistance LE Dressing Comments: Patient able to don underwear and pants onto right lower extremity in figure four with no physical assistance. Observed difficulties with left lower extremity unable to achieve figure four positioning, despite incorporation of Dycem. Total assistance required to don socks due to inability to reach. Will trial sock aid and head bookkeeper in future sessions. Patient able to slip shoes on when placed in front of patient. Toileting Toileting Location: Toilet Toileting Delivery: Assessed, Instructed, Therapist Assisted Toileting Adaptive Equipment: Toilet safety frame Toileting Level of Assistance: Supervision/Set-up Toileting Comments: Verbal cues to utilize toilet safety frame. Sit to Stand Transfers # of Assistants: 1 Transfer Surface: Bed, Chair, Toilet/Commode Transfer Equipment: Gait belt, Front wheeled walker Level of Assistance: Contact guard assistance Assessment/Delivery: Assessed Comments: Therapist hand on gait belt for safety. Verbal cues for hand placement. Stand to Sit Transfers # of Assistants: 1 Transfer Surface: Chair, Toilet/Commode Transfer Equipment: Gait belt, Front wheeled walker Level of Assistance: Contact guard assistance Assessment/Delivery: Assessed Toilet Transfers # of Assistants: 1 Transfer Surface: Toilet Transfer Approach: To and from, Ambulating Transfer Equipment: Front wheeled walker Level of Assistance: Contact guard assistance Assessment/Delivery: Assessed, Instructed, Therapist assisted Toilet Transfers Comments: Therapist hand on gait belt for safety. Verbal cues for use of toilet safety frame. Addenbrooke's Cognitive Examination III The Addenbrooke's Cognitive Examination (VERO-III) is a cognitive screening tool sensitive to detectthe early stages of dementia or mild cognitive impairment. The VERO-III is made up of five subscales: attention, language, fluency, memory, and visuospatial skills. Each subscale represents a cognitive domain. The VERO- III subscale scores are summed to produce an overall total score (maximum 100 points). A score above 88 represents normal cognitive function. A score of 82 to 88 represents possible mild cognitive impairment and need for further assessment. A score below 82 represents the possibility of dementia and the need for further assessment. Total VERO III Wallisian Version A. Score: 97/100 Domain scores: Attention: 18/18 Memory: 25 Fluency: 13/14 Language: 25/26 Visuospatial: 16/16 At the end of today's therapy session patient was left seated in a wheelchair with family member present with an appropriate call light within reach. Patient's needs and questions addressed during today's session. Assessment Patient demonstrated good participation in today's treatment session on 12/28/2023. She demonstratesdeficits related to lower body dressing, and is unable to achieve figure four positioning with affected lower extremity. Also demonstrates decreased standing tolerance and poor lower extremity strength, as she had to complete hair care seated in her wheelchair during the AM session. VERO-III testingindicates the patient is cognitively intact, and no concerns noted at this time. She presents with mild left upper extremity deficits in coordination and strength noted during AM ADL session. Patientis performing below functional baseline and requires skilled OT to address listed deficits and optimize safety and independence with activities of daily living and instrumental activities of daily living for dismissal to home. Barriers to Discharge Home: Current functional status, Fall risk, Safety concerns Personal Factors: Balance impairment, Hearing impairment, Needs assistive device, Safety awareness Discharge Therapy Needs - OT: Ongoing skilled occupational therapy Level of Care Needed - OT: Assistance with toileting, Assistance with toilet/shower transfers, Assistance with medication set up/administration, Assistance with showering/bathing, Assistance with peoplesoft financial developer, Assistance with meal preparation, Assistance with dressing, Assistance with eating/feeding, Assistance with transportation, Assistance with housekeeping, Assistance with shopping, Physical assistance needed Recommended Adaptive Equipment - OT: Other (Comment) (ongoing assessment) Functional Goals and Timeframes: OT Goal #1: By next ITC, pt will complete full grooming routine standing with contact guard assistance in order to promote increased independence in ADL/IADL tasks. OT Goal #1 Status: Progressing (12/27: completing part seated in wheelchair, but progressing) OT Goal #2: By next ITC, pt will complete toilet transfer and toileting with no more than minimal assistance in order to promote increased independence in ADL/IADL tasks. OT Goal #2 Status: Progressing (12/27: completed today, will monitor consistent performance) OT Goal #3: By dischargre, pt will demonstrate shower transfer with no more than contact guard assistance in simulated home environment in order to promote increased independence in ADL/IADL tasks. OT Goal #3 Status: Progressing (12/27: goal not addressed today) OT Goal #4: By dischargre, pt will demonstrate understanding regarding recommended equipment, strategies and level of assist needed in order to promote increased independence in ADL/IADL tasks. OT Goal #4 Status: Progressing (12/27: began education into dressing strategies- figure four and mayneed to progress to use of adaptive equipment (which patient already owns)) Progress: Progressing toward goals Plan Patient agrees with the plan of care and goals. Treatment Plan: OT Frequency: 5 times per week OT Amount: 2 visits per day Plan: Continue with current plan OT Plan Comments: 12/28: showering, dressing, trails A&B, pinch measurements Treatment interventions may include: Treatment Interventions: Therapeutic exercise, Therapeutic functional activity, Neuromuscular re-education, Self-care/home management, Cognitive skills training, Therapeutic modalities as needed Time Spent with Patient Therapeutic Interventions Home Management Training (min): 95 min Time Tracking Total Timed Units (min): 95 min Total Treatment Time (min): 95 min OT Individual: 95 Minutes Kristy Silva OTS Associated attestation - Debra Torres M.S., Jose Bray - 12/29/2023 4:15 PM CDT This therapist has reviewed all documentation and supervised today???s session. The therapist agrees with the plan developed in collaboration with the patient. * Arian Ruiz M.D. - 12/28/2023 11:43 AM CDT Physical Medicine and Rehabilitation Interdisciplinary Team Conference [facility] 12/28/2023 11:43 AM CDT Patient Name: Latonya Gordon Admit Date/Time: 12/25/2023 1:18 PM Date of : 1940 Sex: Female Room/Bed: 331/331-P Etiologic Diagnosis: Stroke (HCC) Impairment Group: Stroke Payor: Payor: [facility] / Plan: [employer] [place] [employer] PPO / Product Type: PPO / Anticipated Discharge Date: 01/01/24 Rehab Team Conference Participation Physician Electrician Ship: Dr. Arian Ruiz Senior Resident Present: Dr. Xiomara Clemens Nursing Electrician Ship: Patricio Guillaume RN CM/SW Electrician Ship: JOSE Simmons CM/SW Second Electrician Ship: Мария Odonnell [facility] PT Electrician Ship: Marge Birch PT OT Electrician Ship: Debra Torres OT/JOSE Priest Other (Discipline and Name): Dr. Marlee Montgomery, PMR Fellow Rehab Psychologist Present: Dr. Gabriela Powers OT Goal #1: By next ITC, pt will complete full grooming routine standing with contact guard assistance in order to promote increased independence in ADL/IADL tasks. OT Goal #2: By next ITC, pt will complete toilet transfer and toileting with no more than minimal assistance in order to promote increased independence in ADL/IADL tasks. OT Goal #3: By dischargre, pt will demonstrate shower transfer with no more than contact guard assistance in simulated home environment in order to promote increased independence in ADL/IADL tasks. OT Goal #4: By dischargre, pt will demonstrate understanding regarding recommended equipment, strategies and level of assist needed in order to promote increased independence in ADL/IADL tasks. PT Goal #1: STG: Patient will ambulate with a front wheel walker with contact guard assistance for at least 75 m. PT Goal #2: STG: Patient well negotiate 8 steps using bilateral railings with contact guard assistance in a reciprocal pattern. PT Goal #3: LTG: Patient will ambulate household distances with least restrictive assistive device with supervision to promote a safe discharge. PT Goal #4: LTG: Patient will ambulate a flight of stairs using a hand rail with standby assistanceto promote a safe discharge. Progress Toward Goals Additional Team Conference Comments (RN): A&Ox3, tolerating regular diet, remaining continent, moving well with nursing x1 Additional Team Conference Comments (PT): Latonya is currently requiring min A for sit to stand transfers and ambulation with a front wheeled walker. She has mild left hemiparesis. mild midline disorientation with slight tip to the left. Goals are for her to return home walking with a walker without physical assistance. Education Provided (PT): Latonya is currently requiring min A for sit to stand transfers and ambulation with a front wheeled walker. She has mild left hemiparesis. mild midline disorientation with slight tip to the left. Goals are for her to return home walking with a walker without physical assistance. Additional Team Conference Comments (OT): Revised OT Update: Latonya is currently requiring grossly minimal to moderate assist for completion of ADL's. Based on observations from the AM session, she completes her dressing routine with varying degrees of assistance. She can complete upper body dressing with set-up and intermittent touching assistance for bra management. Able to button her shirt integrating both hands with no assistance. Lower body dressing is limited by left lower extremity strength, and is unable to maintain figure four positioning to don clothing items. Will trial lower body dressing with adaptive equipment, which the patient also already owns. Toilet transfer was completed w ith contact guard assistance, with cues to use the toilet safety frame. Able to stand for about 5-7minutes at sink to complete grooming before requiring rest break. Equipment recommendations are still ongoing, but may need a shower seat with a back.Overall, she presents with mild left upper extremity deficits in coordination and strength as well as deficits in balance, left lower extremity strength and activity tolerance. Education Provided (OT): role of OT, goals of therapy, activity modifications Discharge Equipment Recommended Adaptive Equipment - OT: Other (Comment), Shower chair with back Equipment Recommended - PT: Front-wheeled walker Equipment Vendor - PT: to be determined Patient / Family Goals The goals from interdisciplinary conference were discussed with patient, family. Discharge Planning Discharge Planning (Team Conference) Barriers To Discharge: Equipment, Caregiver training/education, Comorbidities Strengths: Premorbid level of function, Support of immediate family, Attitude of family, Ability toacquire knowledge, Adaptive/Assistive products Anticipated Discharge Destination: Home or Self Care Assistance Recommended after Discharge: Other (Comment) (intermittent physical assistance) Discharged Living With: Family and or relatives Support Systems: Family members Recommended Discharge Services: Physical Therapy, Occupational Therapy, Primary Care Physician Follow-up, [facility] Physician Summary The team discussed the discharge date, destination and assistance required after discharge, and reviewed the written plan of care. The patient's progress towards rehabilitation goals and associated barriers to discharge were discussed related to activities of daily living, discharge planning, education, follow-up after discharge, mobility. . * Millie Peoples D.O. - 12/28/2023 10:15 AM CDT SUBJECTIVE Mrs. Latonya Gordon is an 83-year-old, right-hand dominant female from [place], [place]. Her medical history includes hypertension, hyperlipidemia, chronic pain and right MCA territory infarcts sustainedin November 2023. She presented to the Emergency Department on December 16 with acute worsening of left hemiparesis found to have acute ischemia in the right MCA distribution. Stroke mechanism is felt to beathero-embolic from her diffuse aortic arch atheroma. She has had extensive left MCA territorial infarcts as well as new right MCA territorial infarcts in the past 2 months. Doing well this a.m.. Last BM 12/26. PVRs 51, 0, 78. She has been taking tylenol for her back pain and requests it be switched to Q6. She has no complaints this morning. She improved over the weekend with therapy. She was able to ambulate 40 m with a front wheeled walker and contact guard assistance. She is requiring maximum assistance for dressing. OBJECTIVE Temperature: [36.4 ??C-36.7 ??C] 36.5 ??C Resp Rate: [16-18] 16 Blood Pressure: (129-161)/(62-85) 151/85 SpO2: [93 %-97 %] 97 % Physical Exam GENERAL: Alert. No acute distress. Conversant. HEENT: Normocephalic, atraumatic. Oral cavity and tongue are unremarkable. Respiratory: No increased work of breathing SKIN: Exposed areas of skin are clean, dry, and intact with no evidence of cellulitis, pressure ulcers, or necrosis. NEUROLOGICAL EXAM: MENTAL STATUS: Grossly oriented with appropriate mood and affect. Diagnostics I reviewed the imaging studies and agree with the interpretation as recorded. I reviewed the pertinent laboratory data and diagnostic data. ASSESSMENT / PLAN Updates: Acetaminophen q.6 # Acute/subacute right frontal strokes # Left hemiparesis # History of right MCA territory infarcts November 2023 with good functional recovery # Hypertension # Functional limitations in mobility, self-cares, and prior roles secondary to impairments listed above and below - Admit to inpatient rehabilitation - Blood Pressure goal: SBP <180 - BG Goal: 140-180 - 30-days dual antiplatelet therapy with aspirin 81 mg daily and Brilinta 90 mg twice daily for 30 days (End date 01/22/2024) - Continue home losartan 50 mg - Neurology stroke follow-up arranged for January 26 - 30-day probate lawyer ongoing for atrial fibrillation evaluation # Hyperlipidemia -Continue rosuvastatin 20 mg # Chronic neck pain # Right trochanteric bursitis (previous right SPEEDY) - acetaminophen 650 mg q.6 hours as needed - lidocaine patch - triple cream - continue home oxycodone 5 mg at bedtime # anxiety - hydroxyzine 10 mg p.r.n. FULL CODE as discussed with patient. Diet: Regular DVT prophylaxis: Heparin --> Lovenox Bowel: bowel medication regimen Bladder: voiding; will do bladder scan PVR's to rule out retention, I/O cath for PVR > 250cc Disposition: ELOS 14 days; goal to home Associated attestation - Arian Ruiz M.D. - 12/28/2023 2:01 PM CDT I saw and evaluated the patient, participating in the espinoza portions of the service. I reviewed the note of Dr. Peoples. I agree with the resident/fellow???s findings and plan. Ms. Gordon is capable of participating in rehabilitation. She continues to progress towards functional independence in the area(s) of mobility and self- care and will benefit from ongoing intensive inpatient rehabilitation. I reviewed the patient with the rehab team in an interdisciplinary team conference. PT reported that she was able to ambulate to the gym and back with contact guard assistance. In OT, she did requireMin to moderate assistance with her self cares due to arm weakness greater than leg. Cognitively, she is doing quite well; OT will begin doing a pre driving evaluation. The rehab team listed December 31 as a tentative dismissal date. The plan is for her to get her outpatient therapies at [facility]. Medically, the patient is doing well; vital signs are stable on the current medication regimen. Therefore, we will not make any medication changes today. Arian Ruiz M.D. * Sherry Adan, PNicole. - 12/27/2023 4:40 PM CDT Physical Therapy Rehabilitation [facility] Inpatient Treatment SUBJECTIVE Patient's Name: Latonya Gordon Medical Diagnosis: 1. Stroke (HCC) [I63.9] 2. 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 She describes these migraines as lasting no more than 10 minutes, relieved by lying down and sometimes occurring in the R side. Furthermore, she experiences fluttery vision which she describes a zig-zag pattern in her vision. This time the migraine did not resolve within 10 minutes and she noticed L arm and hand tingling, numbness and weakness that got worse overtime. On 11/21/23, pt went to [facility] and had a CT scan which did not identify a stroke. She was discharged home the same day but her symptoms did not improve. On 11/25/23, pt described her arm going numb suddenly while having lunch. She also describes face numbness on her left tongue and cheek that intermittently resolved. The same day she had an appointment with her family doctor, who arranged emergency transportation [place] [facility] [place] her L upper extremity hemiparesis recovered almost back to normal. On 12/17/23, pt noted weakness and numbness in her L lower extremity when exiting her vehicle. She describes her movement as her leg dragging on the ground and felt her leg buckle. At this point, the Lupper extremity was mostly back to baseline with mild numbness. The numbness in her face occurred in termittently. Following this event she went to [facility]'s ED. After being evaluated by [facility] ED, she was discharged home. She describes being able to walk with a cane. Over the following day the symptoms in her left lower extremity worsened. On 12/21/23, her left lower extremity felt so weak and numb that she could not walk from her bed to her bathroom. On 12/22/23, she [facility] [place] [facility]. Stroke etiology is still unclear but include symptomatic carotid stenosis and cardioembolic. Patient had CT angiogram and MR angiogram of head and neck which showed 25-30% stenosis of right proximal ICA with a thin rim of peripheral calcification. Now admitted to IRF 5/18for further progression of therapeutic goals. Onset Date: 12/22/23 Patient/Caregiver Goals: Return home safely with assistance of . Patient Comments: Patient was agreeable to PT. Precautions Other Precautions: Fall Risk. L hemiparesis (leg>arm). OBJECTIVE Pain: left hip pain related to OA does interfere with some exercises. Bed Mobility - Supine to Sit # of Assistants: 1 Level of Assistance: Minimal assistance Device: None Cuing: Verbal, Tactile Comments: Min A for rolling to sidely to sitting on the mat Bed Mobility - Sit to Supine # of Assistants: 1 Level of Assistance: Minimal assistance Cuing: Verbal, Tactile Comments: Sit to supine required min A for alignment Sit to Stand Transfers # of Assistants: 1 Transfer Surface: Chair, Toilet/Commode, Other, Wheelchair Transfer Equipment: Front wheeled walker, Gait belt Level of Assistance: Contact guard assistance Assessment/Delivery: Assessed, Instructed, Therapist assisted, Facilitated Comments: Cues for hand placement Stand to Sit Transfers # of Assistants: 1 Transfer Surface: Toilet/Commode, Chair, Other Transfer Equipment: Gait belt, Front wheeled walker Level of Assistance: Minimal assistance Assessment/Delivery: Assessed, Instructed, Therapist assisted, Educated Comments: Cues for hand placement, alignment in front of the wheelchair, controlled sitting as patient tends to plop. Gait Assessment/Training Distance (m): 40 m Surface: Even, Smooth/hard Device: Gait belt, Front-wheeled walker # of Assistants: 1 Level of Assistance: Contact guard assistance Quality/Pattern: Decreased heel strike, Decreased toe off Assessment of Gait: Patient ambulated using a front wheeled walker. Step lengths were shortened butfairly even. She intermittently slides left foot, lacking heel strike and toe off. As she fatigues she tends to bend forward and move more slowly. Cueing Provided: Verbal, Tactile, Visual Training/Intervention: Therapist provided cues for heel strike on the left. Contact guard assistance/min A provided for steadying assistance. Cues and facilitation for upright posture on the left. Response: Some mild complaints of dizziness and fatigue. Stairs/Curb # Stairs: 8 Rails: 2 Device: No device # of Assistants: 1 Level of Assistance: Minimal assistance Stair Navigation Pattern-Ascending: Step-to pattern, Reciprocal pattern Stair Navigation Lead Foot-Ascending: Right Stair Navigation Pattern-Descending: Step-to pattern Stair Navigation Lead Foot-Descending: Left Cueing Provided: Verbal, Tactile Training/Intervention: cues for sequence. Steadying assistance especially for left hip and knee when descending. The first 4 steps were completed in step to step pattern. But on the second set patient was able to ascend with reciprocal pattern. Balance Retraining Sitting: Static, Midline orientation (comment) Static Standing Balance: Static standing, Midline orientation Static Standing Balance Comments: Static standing next to raised mat on her right side. She performed small head turns with emphasis on keeping midline. She tended to drift/tip to her left. Dynamic Standing Balance: Stepping Dynamic Standing Balance Comments: Alternating stepping on small step working on balance and midline orientation. Support Required: One UE support, Minimal assistance Supine Exercise - Side Addressed: Bilateral Supine Exercise: Short arc quads, Bridging Exercise Mode: Active motion against gravity Sets/Repetitions: 1/10 Supine Exercise 1: marching in hooklying Patient/Family Education: Rationale for activities, feedback on performance Education Provided to: Latonya and Vincent Learner's Response: Requires continued education At the end of today's therapy session patient was left seated in a wheelchair with an appropriate call light within reach. Patient's needs and questions addressed during today's session. Assessment Mrs. Gordon is participating well and demonstrating improvements in her mobility. Today she was able to ambulate longer distance (40 meters) with a front wheeled walker and contact guard assistance. She was able to negotiate 8 steps using 2 handrails with min A. She is challenged with left sided hem iparesis and mild midline disorientation. As she fatigues her gait becomes slower and more effortful with decreased clearance of left foot. Barriers to Discharge Home: Current functional status, Fall risk, Safety concerns Discharge Therapy Needs - PT: Ongoing skilled physical therapy Equipment Recommended - PT: Front-wheeled walker Equipment Vendor - PT: to be determined Functional Goals and Timeframes: PT Goal #1: STG: Patient will ambulate with a front wheel walker with contact guard assistance for at least 75 m. PT Goal #1 Date: 01/01/24 PT Goal #1 Status: Progressing PT Goal #2: STG: Patient well negotiate 8 steps using bilateral railings with contact guard assistance in a reciprocal pattern. PT Goal #2 Date: 01/01/24 PT Goal #2 Status: Progressing PT Goal #3: LTG: Patient will ambulate household distances with least restrictive assistive device with supervision to promote a safe discharge. PT Goal #3 Date: 01/07/24 PT Goal #3 Status: Progressing PT Goal #4: LTG: Patient will ambulate a flight of stairs using a hand rail with standby assistanceto promote a safe discharge. PT Goal #4 Date: 01/07/24 PT Goal #4 Status: Progressing Plan Patient agrees with the plan of care and goals. Treatment Plan: PT Frequency: 6 times per week PT Amount: 2 visits per day PT Inpatient Duration : Until goals are met or hospital discharge Plan: Continue with current plan PT Plan Comments: Progressive therapeutic functional activities, neuromuscular re-education for left side, gait and balance training, stair training, patient/family Education Treatment interventions may include: Treatment/Interventions: Therapeutic exercise, Therapeutic functional activity, Neuromuscular re-education, Gait training Other PT Interventions: Progressive therapeutic functional activities, neuromuscular re-education for left side, gait and balance training, stair training, patient/family Education Time Spent with Patient Therapeutic Interventions Gait Training (min): 30 min Neuromuscular Re-Education (min): 30 min Therapeutic Activity (min): 30 min Time Tracking Total Timed Units (min): 90 min Total Treatment Time (min): 90 min PT Individual : 90 Minutes Sherry Adan P.T. * Elizabeth Doss M.D. - 12/27/2023 7:07 AM CDT SUBJECTIVE Mrs. Latonya Gordon is an 83-year-old, right-hand dominant female from [place], [place]. Her medical history includes hypertension, hyperlipidemia, chronic pain and right MCA territory infarcts sustainedin November 2023. She presented to the Emergency Department on December 16 with acute worsening of left hemiparesis found to have acute ischemia in the right MCA distribution. Stroke mechanism is felt to beathero-embolic from her diffuse aortic arch atheroma. She has had extensive left MCA territorial infarcts as well as new right MCA territorial infarcts in the past 2 months. Doing well this a.m.. No new symptoms. Showered with OT this a.m.. Had declined PVR'S the previous night. Yesterday had 1 PVR at 51. No incontinence. OBJECTIVE Temperature: [36.6 ??C] 36.6 ??C Resp Rate: [18-20] 18 Blood Pressure: (143)/(60) 143/60 SpO2: [92 %-95 %] 95 % Weight: [71.1 kg] 71.1 kg BMI (Calculated): [28.7 kg/m??] 28.7 kg/m?? Physical Exam GENERAL: Alert. No acute distress. Conversant. HEENT: Normocephalic, atraumatic. Oral cavity and tongue are unremarkable. Respiratory: No increased work of breathing SKIN: Exposed areas of skin are clean, dry, and intact with no evidence of cellulitis, pressure ulcers, or necrosis. NEUROLOGICAL EXAM: MENTAL STATUS: Grossly oriented with appropriate mood and affect. Diagnostics I reviewed the imaging studies and agree with the interpretation as recorded. I reviewed the pertinent laboratory data and diagnostic data. ASSESSMENT / PLAN Updates: No medication changes today. Voiding well, but would be reassuring to see consistently low PVR's. Hoping for 2 more today. # Acute/subacute right frontal strokes # Left hemiparesis # History of right MCA territory infarcts November 2023 with good functional recovery # Hypertension # Functional limitations in mobility, self-cares, and prior roles secondary to impairments listed above and below - Admit to inpatient rehabilitation - Blood Pressure goal: SBP <180 - BG Goal: 140-180 - 30-days dual antiplatelet therapy with aspirin 81 mg daily and Brilinta 90 mg twice daily for 30 days (End date 01/22/2024) - Continue home losartan 50 mg - Neurology stroke follow-up arranged for January 26 - 30-day probate lawyer ongoing for atrial fibrillation evaluation # Hyperlipidemia -Continue rosuvastatin 20 mg # Chronic neck pain # Right trochanteric bursitis (previous right SPEEDY) - acetaminophen 650 mg q.6 hours as needed - lidocaine patch - triple cream - continue home oxycodone 5 mg at bedtime # anxiety - hydroxyzine 10 mg p.r.n. FULL CODE as discussed with patient. Diet: Regular DVT prophylaxis: Heparin --> Lovenox Bowel: bowel medication regimen Bladder: voiding; will do bladder scan PVR's to rule out retention, I/O cath for PVR > 250cc Disposition: ELOS 14 days; goal to home * Malgorzata Horan O.T., O.T.D. - 12/27/2023 6:44 AM CDT Occupational Therapy Rehabilitation [facility] Inpatient Progress Note SUBJECTIVE Patient's Name: Latonya Gordon Reason for Referral: OT Eval & Treat- IRF Medical Diagnosis: 1. Stroke (HCC) [I63.9] 2. 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 She describes these migraines as lasting no more than 10 minutes, relieved by lying down and sometimes occurring in the R side. Furthermore, she experiences fluttery vision which she describes a zig-zag pattern in her vision. This time the migraine did not resolve within 10 minutes and she noticed L arm and hand tingling, numbness and weakness that got worse overtime. On 11/21/23, pt went to [facility] and had a CT scan which did not identify a stroke. She was discharged home the same day but her symptoms did not improve. On 11/25/23, pt described her arm going numb suddenly while having lunch. She also describes face numbness on her left tongue and cheek that intermittently resolved. The same day she had an appointment with her family doctor, who arranged emergency transportation to [facility] [place] her L upper extremity hemiparesis recovered almost back to normal. On 12/17/23, pt noted weakness and numbness in her L lower extremity when exiting her vehicle. She describes her movement as her leg dragging on the ground and felt her leg buckle. At this point, the Lupper extremity was mostly back to baseline with mild numbness. The numbness in her face occurred in termittently. Following this event she went to [facility]'s ED. After being evaluated by [facility]'s ED, she was discharged home. She describes being able to walk with a cane. Over the following day the symptoms in her left lower extremity worsened. On 12/21/23, her left lower extremity felt so weak and numb that she could not walk from her bed to her bathroom. On 12/22/23, she arrived to [place] EDfor workup and management. Stroke etiology is still unclear but include symptomatic carotid stenosis and cardioembolic. Patient had CT angiogram and MR angiogram of head and neck which showed 25-30% stenosis of right proximal ICA with a thin rim of peripheral calcification. Now admitted to IRF 5/18for further progression of therapeutic goals. Onset Date: 12/22/23 Patient/Caregiver Goals: Return home safely with assistance of . Pt comments: Pt is agreeable to therapy. Precautions Other Precautions: Fall Risk. L hemiparesis (leg>arm). Fall Risk (65 and older) Fall in the last 12 months: No Fall Risk Comments: Instability. L lower extremity weakness. OBJECTIVE Home Management Bathing Bathing Location: Seated in shower, Standing in shower Bathing Delivery: Assessed, Instructed, Educated, Therapist Assisted, Facilitated Bathing Adaptive Equipment: Hand-held shower head Body Parts Included in Task: Chest, Right arm, Left arm, Abdomen,Perineal area, Buttocks, Right upper leg, Left upper leg, Right lower leg, Left lower leg Body Parts Requiring Assistance to Wash/Dry: Right lower leg, Left lower leg Bathing Level of Assistance: Minimal assistance, Supervision/Set-up Bathing Comments: Pt performs showering seated on built in bench. OT assist to set up and gather items for shower, pt washes/rinses all body parts, OT contact guard while pt stands withsupport of grab bar and washes/rinses/dry pernium and buttocks. OT min assist to dry bilateral lower extremities. Pt manages containers without assist and integrates LUE into task throughout for washing/rinsing drying. UE Dressing UE Dressing Delivery: Assessed, Therapist Assisted, Facilitated UE Dressing Items Included: change over shirt, Bra, Button down shirt UE Dressing Location: Chair UE Dressing Comments: Pt doffs/dons bra managing clasps wihtout assist, OT assist to thread right upper extremity into bra. pt dons/doffs dross puller shirt with set up, no physical assist, pt manages buttons independently. LE Dressing LE Dressing Location: Chair LE Dressing Delivery: Assessed, Educated, Instructed, Therapist Assisted, Facilitated LE Dressing Items Included: Socks, Shoes, Pants LE Dressing Level of Assistance: Maximal assistance, Minimal assistance LE Dressing Comments: Pt threads pants and underwear with assist to initiate threading, OT contact guard while pt manages pants over hips standing wiht front wheeled walker. OT max assist to don socks and shoes with assist to maintain figure four,=, increased difficulty with left lower extremity noted for lower body dressing tasks. OT cues for positioning. Adaptive Interventions Adaptive Intervention/Education: Patient was educated on activity modification and how to apply those techniques to activities of daily living. Sit to Stand Transfers # of Assistants: 1 Transfer Surface: Chair, Toilet/Commode, Other (built in bench) Transfer Equipment: Front wheeled walker, Gait belt Level of Assistance: Minimal assistance, Contact guard assistance Assessment/Delivery: Assessed, Instructed, Therapist assisted, Facilitated Stand to Sit Transfers # of Assistants: 1 Transfer Surface: Toilet/Commode, Chair, Other (built in bench) Transfer Equipment: Gait belt, Front wheeled walker Level of Assistance: Minimal assistance, Contact guard assistance Assessment/Delivery: Assessed, Instructed, Therapist assisted Bed, Chair, Wheelchair Transfers # of Assistants: 1 Transfer Surface: Chair, Wheelchair Transfer Approach: Ambulating, To and from Transfer Equipment: Front wheeled walker Level of Assistance: Minimal assistance, Contact guard assistance Assessment/Delivery: Assessed, Therapist assisted, Facilitated Toilet Transfers # of Assistants: 1 Transfer Surface: Toilet Transfer Approach: To and from, Ambulating Transfer Equipment: Front wheeled walker Level of Assistance: Minimal assistance, Contact guard assistance Assessment/Delivery: Assessed, Instructed, Therapist assisted, Facilitated Bath Transfers # of Assistants: 1 Transfer Type: Walk-in shower Transfer Approach: To and from, Ambulating Transfer Equipment: Other (comment), Grab bars, Front wheeled walker (built in bench) Level of Assistance: Contact guard assistance, Minimal assistance Assessment/Delivery: Assessed, Instructed, Therapist assisted, Facilitated Comments: Pt reports baseline she likes to sit in the tub and wash hair in the sink, she reports she has two grab bars in tub and access to a walk in shower with vertical grab bar outside it. Therapeutic Activity OT engages pt in therapeutic standing at table top targeting lower extremity strength, standing tolerance, balance and pinch strength with LUE. Pt completes activity managing red/green/blue clothes pins with LUE without physical assist. Patient/Family Education: goals of therapy, role of OT, rationale for intervention Education Provided to: Latonya Learner's Response: Able to teach back, Requires cueing, and Requires continued education At the end of today's therapy session patient was left seated in bedside chair with the chair alarmon with an appropriate call light within reach. Patient's needs and questions addressed during today's session. Assessment Latonya was seen today for occupational therapy with a focus on self care tasks and functional mobility. Today she performs showering and dressing routine with minimal to maximal assistance. She demonstrates most difficulty with lower body dressing in managing left lower extremity. Overall, this patient presents below their functional baseline and would benefit from continued skilled occupational therapy in order to address the above deficits and progress independence and safety in daily activities and self-care tasks. Barriers to Discharge Home: Current functional status, Fall risk, Safety concerns Personal Factors: Balance impairment, Hearing impairment, Needs assistive device, Safety awareness Discharge Therapy Needs - OT: Ongoing skilled occupational therapy Level of Care Needed - OT: Assistance with toileting, Assistance with toilet/shower transfers, Assistance with medication set up/administration, Assistance with showering/bathing, Assistance with peoplesoft financial developer, Assistance with meal preparation, Assistance with dressing, Assistance with eating/feeding, Assistance with transportation, Assistance with housekeeping, Assistance with shopping, Physical assistance needed Recommended Adaptive Equipment - OT: Other (Comment) (ongoing assessment) Functional Goals and Timeframes: OT Goal #1: By next ITC, pt will complete full grooming routine standing with contact guard assistance in order to promote increased independence in ADL/IADL tasks. OT Goal #1 Status: Progressing OT Goal #2: By next ITC, pt will complete toilet transfer and toileting with no more than minimal assistance in order to promote increased independence in ADL/IADL tasks. OT Goal #2 Status: Progressing OT Goal #3: By dischargre, pt will demonstrate shower transfer with no more than contact guard assistance in simulated home environment in order to promote increased independence in ADL/IADL tasks. OT Goal #3 Status: Progressing OT Goal #4: By dischargre, pt will demonstrate understanding regarding recommended equipment, strategies and level of assist needed in order to promote increased independence in ADL/IADL tasks. OT Goal #4 Status: Progressing Progress: Progressing toward goals Plan Patient agrees with the plan of care and goals. Treatment Plan: OT Frequency: 5 times per week OT Amount: 2 visits per day Plan: Continue with current plan Treatment interventions may include: Treatment Interventions: Therapeutic exercise, Therapeutic functional activity, Neuromuscular re-education, Self-care/home management, Cognitive skills training, Therapeutic modalities as needed Time Spent with Patient Therapeutic Interventions Home Management Training (min): 70 min Therapeutic Activity (min): 20 min Time Tracking Total Timed Units (min): 90 min Total Treatment Time (min): 90 min OT Individual: 90 Minutes Malgorzata Horan O.T., O.T.DMartha * Elizabeth Doss M.D. - 12/26/2023 7:11 AM CDT SUBJECTIVE Mrs. Latonya Gordon is an 83-year-old, right-hand dominant female from [place], [place]. Her medical history includes hypertension, hyperlipidemia, chronic pain and right MCA territory infarcts sustainedin November 2023. She presented to the Emergency Department on December 16 with acute worsening of left hemiparesis found to have acute ischemia in the right MCA distribution. Stroke mechanism is felt to beathero-embolic from her diffuse aortic arch atheroma. She has had extensive left MCA territorial infarcts as well as new right MCA territorial infarcts in the past 2 months. Doing well this a.m.. No new symptoms. She feels like her strength is stable. She had a question about her DVT prophylaxis. Reviewed medications with her. OBJECTIVE Temperature: [36.3 ??C-36.6 ??C] 36.5 ??C Resp Rate: [16-18] 18 Blood Pressure: (116-151)/(50-71) 145/66 SpO2: [94 %-100 %] 94 % Height: [157.5 cm] 157.5 cm Weight: [70.9 kg] 70.9 kg BMI (Calculated): [28.6 kg/m??] 28.6 kg/m?? Physical Exam GENERAL: Alert. No acute distress. Conversant. HEENT: Normocephalic, atraumatic. Oral cavity and tongue are unremarkable. Respiratory: No increased work of breathing SKIN: Exposed areas of skin are clean, dry, and intact with no evidence of cellulitis, pressure ulcers, or necrosis. NEUROLOGICAL EXAM: MENTAL STATUS: Grossly oriented with appropriate mood and affect. Diagnostics I reviewed the imaging studies and agree with the interpretation as recorded. I reviewed the pertinent laboratory data and diagnostic data. ASSESSMENT / PLAN Updates: No medication changes today. # Acute/subacute right frontal strokes # Left hemiparesis # History of right MCA territory infarcts November 2023 with good functional recovery # Hypertension # Functional limitations in mobility, self-cares, and prior roles secondary to impairments listed above and below - Admit to inpatient rehabilitation - Blood Pressure goal: SBP <180 - BG Goal: 140-180 - 30-days dual antiplatelet therapy with aspirin 81 mg daily and Brilinta 90 mg twice daily for 30 days (End date 01/22/2024) - Continue home losartan 50 mg - Neurology stroke follow-up arranged for January 26 - probate lawyer ongoing for atrial fibrillation evaluation # Hyperlipidemia -Continue rosuvastatin 20 mg # Chronic neck pain # Right trochanteric bursitis (previous right SPEEDY) - acetaminophen 650 mg q.6 hours as needed - lidocaine patch - triple cream - continue home oxycodone 5 mg at bedtime # anxiety - hydroxyzine 10 mg p.r.n. FULL CODE as discussed with patient. Diet: Regular DVT prophylaxis: Heparin --> Lovenox Bowel: bowel medication regimen Bladder: voiding; will do bladder scan PVRs to rule out retention, I/O cath for PVR > 250cc Disposition: ELOS 14 days; goal to home * Astrid Kaplan PharmMarthaDMartha, R.Ph., BCPP - 12/25/2023 10:08 PM CDT Pharmacist Progress Note Reason for admission: acute ischemic stroke on 12/21 (recent R MCA infarct November); transfer to inpatient rehab on 12/24. PMH: HTN, HLD, chronic pain on opioids, GERD, L leg melanoma, fibromyalgia OBJECTIVE Home medications: (see pharmacist medication history note on 12/21) Held: OTC supplements, Yuvafem; removed loratadine (not taking) Changed: aspirin dose decreased; switched clopidogrel to ticagrelor Patient own medications: none Prophylaxis: enoxaparin 40 mg daily ASSESSMENT / PLAN Continue dual antiplatelet therapy with aspirin 81 mg and ticagrelor 90 mg BID x 1 month. Continue home rosuvastatin and losartan. Changes to medications anticipated at discharge: aspirin dose decreased (update comments), add ticagrelor Astrid Kaplan Pharm.D., R.Ph., BCPP * Mary Fuller M.D. - 12/25/2023 7:19 PM CDT Physical Medicine and Rehabilitation PMR Rehab Individualized Overall Plan of Care 12/25/2023 7:19 PM CDT Patient Name: Latonya Gordon Date of : 1940 Sex: Female Room/Bed: 331/331-P Payor Info: Payor: [facility] / Plan: [employer] [place] [employer] PLAN PPO / Product Type: PPO / Etiologic Diagnosis: Stroke (HCC) Admit Date/Time: 12/25/2023 1:18 PM Estimated Length of Stay: Estimated Length of Stay: 14 Anticipated Discharge Destination: 01- Home (private home/apt., board/care, assisted living, [facility], transitional living) The following care plan has been synthesized from the Preadmission Screening, the Post Admission Physician Evaluation, and the individual therapy assessments. Medical Prognosis The patient's medical prognosis is Good to achieve the stated goals below. Anticipated Interventions: The patient will undergo inpatient rehabilitation to manage complex medical and rehabilitation needs related to Stroke (HCC). The patient will receive interdisciplinary care, including daily rehabilitation physician management for the following: Pain and Monitoring for medication side effects The patient will benefit from continued services by: PT Intensity Projected Minutes/Day: 90 PT Frequency Projected Days/Week: 5 PT Projected Duration Days: 12 OT Intensity Projected Minutes/Day: 90 OT Frequency Projected Days/Week: 5 OT Projected Duration Days: 12 Expected Functional Outcomes: Expected Level of Improvement for Mobility: The patient will ambulate safely and independently witha gait aid as needed Expected Level of Improvement for Self Care: Independent with ADLs with or without equip Expected Level of Improvement for Cognition: At baseline Expected Level of Improvement for Communication: At baseline documented in this encounter H&P Notes * Mary Fuller M.D. - 12/25/2023 6:46 PM CDT H&P/Post-Admission Physician Evaluation SUBJECTIVE I saw and evaluated the patient, participating in the espinoza portions of the service. I reviewed the resident???s admission note. I agree with the resident???s findings and plan unless otherwise stated below. Please see H&P/Admission note by Millie Cruz DO ([phone]) and Marlee Montgomery MD ([phone]) for additional details. ADMISSION ICG Adult; Stroke Left Body Involvment (Right Brain) (01.1) Chief Complaint Stroke (HCC) History of Present Illness Mrs. Gordon is a right-hand dominant 83-year-old woman with a medical history including hypertension, hyperlipidemia, chronic neck and low back pain (previously poorly controlled on high-dose aspirinper hospital admission note), previous right MCA distribution infarction in November 2023 with improved left hemiparesis. Following her most recent stroke she had returned to independent mobility and ADLs as well short distance driving. On 12/17/2023 she developed weakness and numbness involving her left lower extremity. She went to the local ED, was evaluated, and discharged home. At that point, she indicates she was able to ambulate with a cane. However over the next days her symptoms in the left lower extremity worsened. By 513she describes her left lower extremity is feeling so weak and numb she could not walk from her bed to the bathroom. Thus, she presented to the [facility] Emergency Department on 12/22/2023 for further evaluation and management. NIHSS in the emergency department was 2 for left upper and lower extremity motor symptoms. Imaging included MRI MRA of the head and neck demonstrating multiple small acute subacute infarctions involving the right frontal lobe as well as approximately 25-30% stenosis of the right proximal ICA. She was admitted to the Neurology Stroke Servicefor further evaluation and management. As she had ongoing stroke despite compliance on Plavix and aspirin, they adjusted her dual antiplatelet therapy. They also are planning for extended cardiac monitoring. She was seen by therapies and felt to be an appropriate candidate for acute inpatient rehabilitation. She indicates her primary goals are to improve her ambulation. She indicates this is most limited by hip weakness and decreased proprioceptive input at the foot. OBJECTIVE Physical Exam I confirmed the examination previously documented by Drs. Cruz and Ulises She is awake and alert in no acute distress. I did not repeat a [place] examination however see nothing to contradict the findings of Dr. Cruz. On strength examination she has primarily proximalweakness,-1 of her left shoulder abduction, flexion, hip flexion and interossei. Of note, she does have sensitivity at the left foot due to her previous surgical intervention. ASSESSMENT / PLAN #1 Acute/subacute right frontal strokes #2 Left hemiparesis #3 Right trochanteric bursitis (previous right SPEEDY) #4 History of right MCA territory infarcts November 2023 with good functional recovery #5 Hypertension #6 Hyperlipidemia -The patient is medically capable of participating in rehabilitation activities and continues to require physician monitoring and management during the rehabilitation stay for monitoring her vital signs, pain management, and treating her stroke risk factors. -We will admit the patient for comprehensive inpatient rehabilitation including physical therapy, occupational therapy,recreational therapy, rehabilitation nursing care, and rehabilitation psychologist evaluation and treatment. The rehabilitation physician shall monitor the patient's changing functional and clinical status, manage new and preexisting medical conditions, and coordinate care amongst rehabilitation disciplines. At this time, we have not consulted speech pathology however, if cognitive or communication difficulties are noted we will have a low threshold for consulting them. -Please see Preadmission Screening for inpatient rehabilitation goals. Occupational Therapy shall work on upper extremity range of motion, fine motor coordination activities, activities of daily living, instrumental activities of daily living, and adaptive equipment needs assessment. Physical Therapy shall work on lower extremity range of motion, lower extremity strengthening and stretching as functionally indicated, standing and transfers, and ambulation. Rehabilitation nursing shall monitor vital signs, behavior, and cognition, monitor and promote medication compliance, provide consistent carry-over of rehabilitation interventions and approaches at the bedside, and offer diagnosis-specific education to the patient's family members. The nurse customer care manager shall assist with dismissal planning. I have reviewed the pre-admission rehabilitation assessment. The patient's current medical and functional status remain the same. Estimated Length of Stay: Estimated Length of Stay: 14 Medical Necessity: The patient requires, and is capable of participating in, an intensive and coordinated interdisciplinary acute inpatient rehabilitation program. The patient requires rehabilitationphysician visits to monitor medical conditions and coordinate rehabilitation care. The patient's rehabilitation goals and medical complexity cannot adequately be managed in a less intensive setting. Potential risks for clinical complications include hemorrhage, further stroke activity, uncontrolledhypertension, uncontrolled pain, seizure.. Medical Prognosis: Good for continued progress and participation with therapy. Functional Status Prior Function (3=independent; 2=Needs some help; 1= Dependent; 8= Unk; 9= NA) Level of [place]: Independent with ADLs and functional transfers; Independent with homemaking with ambulation ADL Assistance: Independent Self-Care: 3 Ambulation: 3 Wheelchair: 9 Stairs: 3 Cognition: Normal Speech / Language: Normal Have you had major surgery in past 100 days?: 1 Current Functional Status (06=independent; 05=Setup or clean-up assistance; 04=Supervision or touching assistance; 03=Partial/moderate assistance; 02=Substantial/maximal assistance; 01=Dependent; 07=Patient refused; 09=NA; 88=Not attempted due to medical condition or safety concerns) Eatin Groomin Upper Body Dressin Lower Body Dressin Toiletin Bathin Bed Mobility: 03 Transfers: 03 Functional Mobility: 03 Distance: 20 Meters Willingness to Participate: 06 Cognition: 06 Communication: 06 * Millie Peoples D.O. - 12/25/2023 2:17 PM CDT H&P/ Admission Note SUBJECTIVE Referring Provider Neurology stroke & cerebrovascular disease Chief Complaint Stroke History of Present Illness Per review of the electronic medical record and in discussion with the patient: Mrs. Latonya Gordon is an 83-year-old, right-hand dominant female from [place], [place]. Her medical history includes hypertension, hyperlipidemia, chronic pain and right MCA territory infarcts sustainedin November 2023. She presented to the Emergency Department on December 16 with acute worsening of left hemiparesis found to have acute ischemia in the right MCA distribution. She is being admitted to the inpatient brain rehabilitation service with functional goals related to increasing strength of the left side and independence with ADLs. In summary, Mrs. Gordon had acute onset of left upper extremity weakness on November 19. She was evaluated at the [place] Emergency Department initially with a reportedly negative head CT. She presented again to the [facility] on November 24 after developing sudden worsening of left upperextremity weakness. She was admitted locally from November 24 - November 26 with MRI demonstrating infarct of the right precentral gyrus, multiple small foci of diffusion restriction in the right frontal deep white matter and parietal cortex representing acute infarction, and chronic left post central gyrus, parietal and deep white matter infarctions. Additional stroke workup included, CT angiogram head and neck demonstrating moderate possible right ICA stenosis, TTE with ejection fraction 60-65%without comment on the left atrial or appendageal size or intracardiac thrombus. She was dischargedhome on dual antiplatelet therapy with aspirin 81 mg and clopidogrel 75 mg daily. Her left upper extremity strength was gradually improving. However, on December 16, she had sudden onset of left lower extremity weakness with worsening of her left upper extremity weakness. She presented [facility] Department where she was found to have new right MCA territory stroke concerning symptomatic carotid stenosis. She wassubsequently admitted to the neurology stroke and cerebrovascular disease service. Extensive strokeworkup was performed as follows: MRI without contrast on 12/21 revealed acute right MCA territory infarct including the right precentral gyrus MR angiogram of head and neck which showed 25-30% stenosis of right proximal ICA with predominantlynoncalcified atherosclerotic plaque in this region with a thin rim of peripheral calcification. No evidence of intra plaque hemorrhage, this study was limited by motion artifact. GERA which showed diffuse moderate immobile atheroma measuring 3-5 mm thickness with the ulceration of the descending thoracic aorta and aortic arch. There was no left atrial dilatation or left appendageal thrombus. Laboratory evaluation revealed normal thyroid function, hemoglobin A1c of 5.7% and lipid panel within total cholesterol 145, LDL 72, and HDL 51. Stroke mechanism is felt to be athero-embolic from her diffuse aortic arch atheroma. She has had extensive left MCA territorial infarcts as well as new right MCA territorial infarcts in the past 2 months. Cardioembolic etiology remains on the differential despite absence of a dilatation or intracardiac thrombus. Ongoing workup includes 30-day heart monitor to rule out atrial fibrillation. Despiteher compliance with taking aspirin and Plavix, she had a new right MCA territory stroke. As a result, she was transitioned to Brilinta [address] of Plavix with continued daily aspirin for a 30-day course. Physical Medicine & Rehabilitation was consulted and evaluated the patient while on the acute hospital floor. Ultimately, she was felt to be an excellent candidate for inpatient rehabilitation. At the time of her admission, she was requiring moderate assistance with transfers, ambulation of 20 meters with a walker and moderate assistance, maximal assistance with lower body dressing and moderate assistance with grooming. Patient was previously independent of all ADLs without requiring any adaptive equipment. Patient's goal is to dismiss home with her in [place], [place]. They live in a 1-story home with 2 stairs to enter and no stairs inside. Her will be available to provide 24/7 assistance as needed following dismissal. Currently patient reports anxiety and left sided weakness. Denies any headache, pain, paresthesias,fevers/chills, chest pain, shortness of breath, nausea, vomiting, or dysphagia. Denies having any subjective cognitive deficits or changes in speech. Denies changes in bowel or bladder function. Reports regular bowel movements; last BM was 12/23. The following portions of the patient's history were reviewed and updated as appropriate: current medications, allergies, medical history, surgical history, social history, family history and problemlist. Review of Systems Pertinent items are noted in HPI; all other review of systems were negative. OBJECTIVE Temperature: [36.3 ??C-36.6 ??C] 36.3 ??C Heart Rate: [91] 91 Resp Rate: [15-16] 16 Blood Pressure: (116-147)/(53-63) 140/59 SpO2: [92 %-100 %] 97 % Physical Exam GENERAL: Alert. No acute distress. HEENT: Normocephalic, atraumatic. Oral cavity and tongue are unremarkable. MUSCULOSKELETAL EXAM: EXTREMITIES: No swelling or erythema. No calf tenderness. Passive range of motion is functionally normal. SKIN: Exposed areas of skin are clean, dry, and intact with no evidence of cellulitis, pressure ulcers, or necrosis. NEUROLOGICAL EXAM: MENTAL STATUS: Grossly oriented with appropriate mood and affect. KOKMEN Short Test of Mental Status: Orientation 8/8 Attention 6/7 Learning 4/4 (maximum of 4 trials) Calculation 2/4 Abstraction 3/3 Construction 3/4 Information 4/4 Recall 4/4 Total score = 34/38. CRANIAL NERVES: II: Visual crowley full in all quadrants. Pupils equal, round, and reactive to light III, IV, : Extraocular movements intact. No nystagmus. No ptosis. No dysconjugate gaze. VII: Symmetric smile. No facial droop. VIII: Hearing to fingers rubbing together intact bilaterally IX, X: Symmetric palate movements XI: Shoulder shrug intact and symmetric XII: Tongue protrudes midline SPEECH/LANGUAGE: Grossly normal. MUSCLE STRENGTH: (PINA scale: 5=normal to 0=plegic; right/left) -C5 (elbow flexors): 5/4 -C6 (wrist extensors): 5/5 -C7 (elbow extensors): 5/4 -C8 (flexion of middle finger DIP): 5/4 -T1 (little finger abduction): 5/4 -L2 (hip flexors): 5/4 -L3 (knee extensors): 5/5 -L4 (ankle dorsiflexors): 5/5 -L5 (long toe extensors): 5/3 -S1 (ankle plantar flexors): 5/4 TONE: Normal tone throughout upper and lower limbs. MUSCLE REFLEXES (scale: -4=absent, 0=normal, +4=sustained clonus; right/left): Biceps +1/+1, Triceps +1/+1, Quadriceps +1/+1, Gastroc-soleus +1/+1. BENAVIDEZ RESPONSE: (right/left) absent/absent. PLANTAR RESPONSE: (right/left) flexor/difficult to tell with exaggerated withdrawal reflex. GAIT: Deferred COORDINATION: Slowed upper and lower limb NAM's on the left. Normal opynen-mndx-voraao. Limited jvsc-ah-egwf on the left. SENSATION: Globally intact. No double extinction SATELLITE SIGN: Positive on the left Diagnostics I reviewed the imaging studies and agree with the interpretation as recorded. I reviewed the pertinent laboratory data and diagnostic data. ASSESSMENT / PLAN --PT/OT/ART LIBRARIAN --Followed by [facility] Neurology Stroke and Cerebrovascular Disease service and pager [phone] # Acute/subacute right frontal strokes # Left hemiparesis # History of right MCA territory infarcts November 2023 with good functional recovery # Hypertension # Functional limitations in mobility, self-cares, and prior roles secondary to impairments listed above and below - Admit to inpatient rehabilitation - Blood Pressure goal: SBP <180 - BG Goal: 140-180 - 30-days dual antiplatelet therapy with aspirin 81 mg daily and Brilinta 90 mg twice daily for 30 days (End date 01/22/2024) - Continue home losartan 50 mg - Neurology stroke follow-up arranged for January 26 - 30-day probate lawyer ongoing for atrial fibrillation evaluation # Hyperlipidemia -Continue rosuvastatin 20 mg # Chronic neck pain # Right trochanteric bursitis (previous right SPEEDY) - acetaminophen 650 mg q.6 hours as needed - lidocaine patch - triple cream - continue home oxycodone 5 mg at bedtime # anxiety - hydroxyzine 10 mg p.r.n. FULL CODE as discussed with patient. Diet: Regular DVT prophylaxis: Heparin --> Lovenox Bowel: bowel medication regimen Bladder: voiding; will do bladder scan PVRs to rule out retention, I/O cath for PVR > 250cc Disposition: ELOS 14 days; goal to home Associated attestation - Marlee Montgomery M.D. - 12/25/2023 4:21 PM CDT SUBJECTIVE I saw and evaluated the patient, participating in the espinoza portions of the service. I reviewed the resident's admission note. I agree with the resident's findings and plan unless otherwise stated below. Please see H&P/Admission note by Dr. Cruz for additional details. CHIEF COMPLAINT/REASON FOR ADMISSION stroke Ms. Gordon is a 83 y.o. right-handed female with history of hypertension, hyperlipidemia, right SPEEDY, migraines, chronic neck pain on oxycodone, previous right MCA territory infarcts November 2023 with left sided deficits (functional recovery). Unfortunately, she presented on 12/17/23 with worsened left sided weakness and numbness. Evaluation revealed multiple acute/ subacute infarcts in the right frontal lobe, chronic cortical infarcts left greater than right parietal lobes and left frontal lobe, and right proximal ICA 25-30% stenosis. GERA with no shunt, no left atrial appendage thrombus; no hemodynamically significant valvular heart disease; diffuse moderate immobile atherosclerosis of descending thoracic aorta and aortic arch, aortic valve strands (degenerative) of low thromboembolic potential. 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 This would explain both the new right MCA infarcts and the chronic left MCA infarcts. She just recently completed a 14 day Holter monitor with no indications of Afib. Neurology will have her repeat the Holtermonitor to further assess Afib as a possible etiology. They managed her stroke prevention by switching her from clopidogrel to ticagrelor 90 mg b.i.d. and continue aspirin 81 mg daily for dual antiplatelet therapy for a total of 30 days. FUNCTIONAL: She has left sided hemiparesis from her stroke in November 2023 but this had improved. She had returned to independence with ambulation (no gait aid), transfers, and ADLs. Now she is requiring minimal assistance with bed mobility, moderate assistance in completion of sit to stands with use of bed rail, and moderate assistance in ambulation of 15m with a FWW. SOCIAL: She lives with her spouse. She is retired and use to work at the [employer]. Home Living Home Layout: One level home with a basement (rarely uses). All needs can be met on the main level. Home Access: 3 step entry with rail. Home Equipment Home Adaptive Equipment: Fire And Safety Helper Gait Devices Owned: Four-wheeled walker (borrowed from friend), Cane Bathroom Equipment: Shower bench. Grab bars. PHYSICAL EXAMINATION BP 140/59 (BP Location: Right arm;Upper, Patient Position: Lying) Pulse 73 Temp 36.3 ??C (Oral) Resp 17 Ht 157.5 cm Wt 70.9 kg SpO2 97% BMI 28.59 kg/m?? General: No acute distress. Well-developed, well-nourished. HEENT: Normocephalic, atraumatic. Conjunctiva clear, sclera anicteric. Mucus membranes moist. Cardiovascular: Hemodynamically stable. Heart rate as noted above in vital signs. Respiratory: No dyspnea or use of accessory muscles. Respiratory rate as noted above in vital signs. Symmetric chest rise. Skin: Exposed areas of skin are clean, dry, and intact with no evidence of cellulitis, pressure ulcers, or necrosis. Neuro: Mental status:Grossly oriented with appropriate mood and affect. KOKMEN Short Test of Mental Status: Per resident note 34/38 with most notable deficits in attention, calculation, construction Speech/Language: Speech clear. Language is intact including fluency, naming, reading, repetition and comprehension. Cranial nerves: Pupils appropriate for environment, pupils equal and reactive to light, EOMI, visual crowley intact to finger counting, facial movements full and symmetric, sensation intact to light touch in the V1-V3 distributions, hearing intact to voice, tongue protrudes in midline, there is equal elevation of the soft palate, sternocleidomastoid muscles are strong. Strength: (R,L) arm abduction/deltoids (0,-1), arm flexion/biceps (0,-1) , arm extension/triceps (0,0), wrist extension (0,0), wrist flexion (0,0), finger extension (0,0), finger flexion (0,0), interossei muscles (0,-1). Hip flexion (0,-1), knee flexion (0,0), knee extension (0,0), dorsiflexion (0,0), plantarflexion (0,0). Sensation: Normal sensation to light touch and pin prick in bilateral upper and lower extremities. There is no extinction to bilateral sensory stimuli. Coordination: Normal vdeeul-orng-bopcrw bilaterally. Normal ipps-dn-rqxq bilaterally. Gait: Deferred. ASSESSMENT/PLAN #1 Acute/subacute right frontal strokes #2 Left hemiparesis #3 Right trochanteric bursitis (previous right SPEEDY) #4 History of right MCA territory infarcts November 2023 with good functional recovery #5 Hypertension #6 Hyperlipidemia The patient is medically capable of participating in intensive rehabilitation activities -We will admit the patient for comprehensive inpatient rehabilitation including physical therapy, occupational therapy, speech therapy, recreational therapy, rehabilitation nursing care, and rehabilitation psychologist evaluation and treatment. The rehabilitation physician shall monitor the patient's changing functional and clinical status, manage new and preexisting medical conditions, and coordinate care amongst rehabilitation disciplines. -Please see Preadmission Screening for inpatient rehabilitation goals. Occupational Therapy shall work on upper extremity range of motion, fine motor coordination activities, activities of daily living, instrumental activities of daily living, and adaptive equipment needs assessment. Physical Therapy shall work on lower extremity range of motion, lower extremity strengthening and stretching as functionally indicated, standing and transfers, and ambulation with/without braces and/or gait aids. Speech Therapy shall work on expression and cognition. Rehabilitation nursing shall monitor vital signs, behavior, and cognition, monitor and promote medication compliance, provide consistent carry-over of rehabilitation interventions and approaches at the bedside, and offer diagnosis-specific education to the patient's family members. The nurse customer care manager shall assist with dismissal planning. Medical Necessity: The patient requires, and is capable of participating in, an intensive and coordinated interdisciplinary acute inpatient rehabilitation program. The patient requires rehabilitationphysician monitoring and management during the rehabilitation stay for ongoing monitoring of neurologic status and recurrent stroke, BP monitoring and management, comorbidity management, pain management, monitor medication side effects, monitor and prevent complications related to reduced mobility,sleep regulation, bowel regulation, bladder regulation, optimize nutrition and hydration for healing/recovery, fall precautions, aspiration precautions, monitor mood/adjustment and coping, and patient/caregiver education and training. We will be actively managing the following specifics: Diagnostic Studies: 30 day heart monitor Antithrombotic: Aspirin 81 mg indefinitely Brilinta 90 mg b.i.d. for 30 days Vascular risk factor goals for cerebral ischemia include: BP<130/80, LDL<70 mg/dl If atherosclerotic stroke and beginning LDL >100 mg/dl, normoglycemia, no tobacco, normal BMI (<25). Functional Impairment: PT/ OT Atarax for anxiety I have reviewed the pre-admission rehabilitation assessment. The patient's current medical and functional status remain the same. Estimated Length of Stay: Estimated Length of Stay: 14 days Medical Prognosis: Good for continued progress and participation with therapy. Marlee Montgomery MD Fellow, Brain Injury Medicine Physical Medicine & Rehabilitation documented in this encounter Consult Notes * Gabriela Powers, Ph.D., L.P. - 12/28/2023 11:29 AM CDTAssociated Order(s): IP CONSULT TO PSYCHIATRY & PSYCHOLOGY SUBJECTIVE REFERRAL SOURCE Dr. Peoples REASON FOR CONSULT Rehabilitation Psychology Brain Service and Inpatient Brain Rehabilitation Psychology Consult right hemisphere stroke HISTORY OF PRESENT ILLNESS I had the pleasure of seeing Latonya Gordon for a rehabilitation psychology consultation to assess mood, behavior, and adjustment to disability while she undergoes comprehensive inpatient rehabilitation following her right brain cerebrovascular accident (CVA). Please see H&P by Dr. Peoples for full hospital course history. In brief, Ms. Gordon was first admitted to the hospital on 12/17/2023 with symptoms of worsening left hemiparesis. She has a history of recent right MCA stroke in November, (-) with possible right ICA stenosis. She was started on dual anti-platelet therapy at that time. She presented to [facility] on the with worsening left hemiparesis. Mri revealed acute right MCA infarct including the right precentral gyrus with 25- 30% stenosis of the right proximal internal carotid artery. Stroke mechanism was thought to be athero-embolic in nature. She was switched from Plavix to Brillanta. Hospital course was otherwise unremarkable. [facility]. The patient presents to inpatient rehabilitation for impairments in mobility, self-care, and iADL's. REVIEW OF SYSTEMS Depression/Mood: She denies any significant depression. Only notes anxiety with fear of having another stroke. Anxiety/Stress/Distress: She reports concerns with having another stroke, particularly after the medications she was prescribed during her last hospitalization were not effective at controlling stroke risk, leading to another stroke. Post-traumatic/Acute Stress/Trauma: She denies any history of trauma. Adjustment to Disability: She reports one outpatient OT visit after her first stroke. Feels this stroke is significantly different. Has concerns her cognition will continue to decline. Education provided. Adherence/Motivation: She is very motivated for therapies/care. Would like to leave the hospital bythe weekend if possible. Pain: Pain was not rated. She reports her neck and back pain is worse compared to home because she no longer can use her home medications. She reports some relief with tylenol and lidocaine patches, but wants to know about going back on her home regimen. Communicated to medical team for updates on her questions. She denies pain is a barrier to her current therapies or sleep. Sleep: good and no change. She denies any history of sleep difficulties at baseline. Perceived Cognition: Ms. Grodon reports no difficulties with thinking/memory since injury. This is confirmed on chart review. She reports concern that her cognition will continue to decline. Education provided to alleviate those concerns. She reports family history of Alzhiemer's (mother, diagnosedin her 80's). OBJECTIVE BEHAVIORAL OBSERVATIONS/MENTAL STATUS EXAM Orientation: person, place, date/time, and situation Mood: within normal limits and anxious Affect: appropriate and congruent Behavior: cooperative, engaged, and pleasant Speech: normal rate, tone and rhythm Thought Process: linear, logical, and goal-directed Thought Content: no evidence of auditory or visual hallucinations Insight/Awareness/Judgement: Awareness of situation & chain of events leading to current admission and normative insight based on stage of adjustment Memory: WNL., not directly assessed. Attention/Concentration: appeared within normal limits Perceptual: WNL Suicidality: none ADMINISTERED MEASURES Geriatric Depression Scale (GDS short form): The Geriatric Depression Scale short form is a 64-mcqirmun-xlzcob measure of depressive symptoms for use in individuals over the age of 55, but validatedwith populations as young as 17. It is advantageous due to its ease of use based on only yes/no questions and reduced reliance on somatic symptoms. Scores >=5 are typically indicative of depressedmood. Score = 1/15 12/22/2023 2:00 PM PHQ9 Score PHQ-9 Total Score (max 27) 0 ASSESSMENT / PLAN PERTINENT HISTORY Current living situation: Ms. Gordon lives with their in [place], [place]. Persons identifiedby the patient to assist at discharge include her and children (all of whom live locally). Current social support: Patient identified her and family as emotional/tangible support resources. She would benefit from informational/belonging support resources at discharge. She has 3 adult sons that live in the [place] [facility] area (Jacques, 58; Rebel, 60; Frank, 55). Her has 3 daughters that also live locally. She has 4 grandchildren. Educational history: Ms. Gordon completed 14 years of schooling. she described herself as an average student. They denied history of learning difficulties. Vocational history: Ms. Gordon was retired at the time of injury. 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 Marital/Relationship history: Ms. Gordon is . They have been together 25 years. This is her second marriage after her first 27 years ago. They met in their grief group after they both lost their spouses. Hobbies: She reports being very active at baseline including 2 book groups, socializing with family/friends, and attending their senior center. She reports she used to be very active walking, biking and doing yoga daily, but slowly had to stop those activities with foot and back pain. She was open to chair yoga at the senior center after discharge. Culture/Spiritism: she identifies as Restorationist. She declined Social Welfare Clerk services at this time. Psychiatric History: She denies any formal mental health history. She acknowledges anxiety with this hospitalization and, specifically, fear of having another stroke and has PRN hydroxyzine available. She reports history of psychotherapy and grief group after her first 's . Substance Use History: Alcohol: endorses history of alcohol use (denies abuse) Minimal use - 7 wine glass(es) per week Tobacco: Patient denies current or historical tobacco use Substances: Never user of illicit substances Patient's Stated Goal: To return to driving and discharge from the hospital by the weekend. CLINICAL IMPRESSIONS: Latonya Gordon is a 83 y.o. year-old female admitted to the inpatient rehabilitation unit on 12/25/2023 for recovery from right hemisphere stroke. They were pleasant, cooperative and engaged duringinterview. They report good progress in their rehabilitation so far and are hopeful for the future after discharge. She does report anxiety about having another stroke and would like to do as much asshe can to prevent that from happening. She also mentioned fear that her cognition would continue to get worse. Provided reassurance related to her family history and stroke etiology. There was no evidence of depression noted on interview. They report adequate social support both here and after disc harge. They plan to return to her home with support of and local children. They had no further questions or concerns pertinent to rehabilitation psychology. FOLLOW-UP Rehabilitation psychology will sign off in the absence of further patient- identified goals and/or psychosocial/behavioral barriers to inpatient rehabilitation. Thank you for the opportunity to participate in this patient's plan of care. Please feel free to reconsult if symptoms worsen and/or fail to improve to the point of causing clinically significant impairment or distress. Time spent: 40 min Signed: Gabriela Powers, PhD, LP, ABPP-RP Board-Certified Rehabilitation Psychologist Inpatient Rehabilitation Brain Injury Service * Мария Odonnell L.I.C.S.WMartha, M.S.W. 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 They consented to proceed. The information provided in the assessment is based on review of the medical record as well as the face to face interview. They were advised that the content of this interview will be shared with the health care team and documented in the medical record. They were advised that anyone with access to their patient portal will have access to this information. It was discussed that staff are mandated reporters and they reported understanding. History of Present Illness #1 Allergy Personal History #2 Gastroesophageal Reflux Disease Without Esophagitis #3 Hyperlipidemia #4 Hypertension Essential Primary #5 Malignant Melanoma Of Left Lower Limb Including Hip (HCC) #6 Stroke (HCC) Patient presented to the Emergency Department on December 16 with acute worsening of left hemiparesis found to have acute ischemia in the right MCA distribution. Her medical history includes hypertension, hyperlipidemia, chronic pain and right MCA territory infarcts sustained in November 2023. Please see medical record for more detailed medical history. Social History Early Growth and Development: The patient met social and developmental milestones as expected. Citizenship: [place] Citizen Resident Status: [place] Resident Marital Status: . Spouse-Henrik Family / Household: Resides with spouse in [place]. Has three adult sons whom live in [facility]. Support System: spouse, children, family members, and friends/neighbors Primary Caregiver: self Spirituality/Spiritism/Cultural Factors: Not discussed History: No Highest Level of Education: not applicable Employment: retired Psychosocial Risk Factors Impacting the Patient: none Maltreatment: none reported Trauma: none reported Current Legal Status: Voluntary Legal History: none reported SDOH Transportation: In the past 12 months, has lack of transportation kept you from medical appointments or from getting medications?: No In the past 12 months, has lack of transportation kept you from meetings, work, or from getting things needed for daily living?: No SDOH Utilities: In the past 12 months has the [employer], gas, oil, or water [employer] threatened to shut off services in your home?: No SDOH Food Insecurity: Within the past 12 months, you worried that your food would run out before you got the money to buymore.: Never true Within the past 12 months, the food you bought just didn't last and you didn't have money to get more.: Never true SDOH Housing: What is your living situation today?: I have a steady place to live SDNE Intimate Partner Violence: Within the last year, have you been afraid of your partner or ex-partner?: No Within the last year, have you been humiliated or emotionally abused in other ways by your partner or ex-partner?: No Within the last year, have you been kicked, hit, slapped, or otherwise physically hurt by your partner or ex-partner?: No Within the last year, have you been raped or forced to have any kind of sexual activity by your partner or ex-partner?: No Current Stressors Patient endorses her hospitalization and recent strokes as her primary stressor. Coping Skills/Strengths Patient enjoys socializing; noting she is in two book clubs. She discusses how she also enjoys being active, which she hopes to return to as her therapy progresses. Financial/Insurance Primary insurance: [employer]BS [place] MEDICARE PLAN PPO Secondary insurance: N/A Advance Directives Legal Decision Maker: Self Advance Directives: N/A Advance Directives Status: N/A Baseline Functional Status Baseline Activities of Daily Living Mobility: Independent Dressing: Independent Feeding: Independent Bathing: Independent Grooming: Independent Toileting: Independent Behavior: Appropriate, Pleasant, Calm, Oriented Communication: Can write, Talks, Understands speaking, Understands Austrian, Reads Shopping: Independent Medication Management: Independent Housekeeping: Independent Meal Prep: Independent Assistive Devices: None Transportation: Independent to drive Managing Finances: Independent Baseline Services/Resources Primary care clinic and provider: ELSEWHERE, PCP Additional Resources: None Anticipated Needs Functional Status: Transfer to/from bed, chair, etc., Tasks appropriate to patient's age/development Assistive Devices: Other (Comment) (To be determined pending rehabiliation course) Anticipated Modifications to the Patient's Home: None Transportation Needs: Support from family Does the patient need discharge transport arranged?: No Anticipated Discharge Destination: Home or Self Care OBJECTIVE Substance Abuse no symptoms Mental Health Mental Health History: Patient reports no mental health history Suicide Risk and Safety Risk Assessment: Patient denied any Suicidal Ideation Homicidal: no Mental Status Orientation: Oriented to person, place and time Level of consciousness: Awake and alert Appearance: Age appearing Behavior observed: Calm Memory: Excellent based on ability to recall events during conversation Cooperation: cooperative and forthcoming Mood: okay Affect: Flat Speech: Coherent Thought content: No abnormality noted Thought process: Intact Judgement: intact Insight: intact Review of Psychiatric Symptoms: Anxiety symptoms: medical illness anxiety Depression symptoms: no symptoms Other Mental Health Assessments PHQ 9 Score: 0 The patient has completed the PHQ-9: PHQ9 Score PHQ-9 Total Score (max 27) 0 Item 9 Thoughts that you would be better off or of hurting yourself in some way Not at all How often do you feel lonely or isolated from those around you?: Never ASSESSMENT / PLAN Discussion Social work met with the patient in her hospital room to review hospitalization, provide support, and begin discharge planning discussions. When asked about hospitalization, patient discussed how shehad two strokes. Her first stroke was in November 2023, however as symptoms continued, she presented to the [facility] ED on 12/16, where it was discovered that she had an additional stroke. Latonya lives with her in a one level townhouse (2 steps to enter) in [place], [place]. She hasthree adult sons (all in [facility]) and numerous friends for support. She describes her selfas independent, stating she likes to socialize, participates in two book clubs, and exercising. Sheowns hearing aides, a walker, shower stool, and grab bars in her bathroom for assistive devices. She denies any mental health diagnosis or concerns for depression. She does discuss some anxiousness due to her illness, discussing how she had a second stroke despite being on medications designed to prevent strokes. Overall, she denies any concerns with coping. No SI/HI. No concerns for abuse/neglect. No substance use. In regards to discharge, patient reports plans to return home with the support of her . Whendiscussing homegoing goals, she confirms a goal is to be able to get in and out of her tub, noting she really likes baths. She confirms that her is available to provide support and transportation to any outpatient appointments. She denies any current questions or concerns. Assessment/Impressions Mrs. Latonya Gordon is a 83 year old female, currently hospitalized on [facility], acute rehabilitation. She was admitted to the [facility] on 12/22/23 following her second stroke. Latonya was awake, alert, oriented, and sitting up in her hosptial chair during visit. She was pleasant and forthcoming. Speech was clear. She presented with flat affect-likely due to facial numbness. Patient was agreeable to complete PHQ-9, showing no depressive symptoms. She denies any mental health concerns past or present, outside of anxiety related to current hospitalization. Despite anxiety,patient does appear to be coping well. Patient appears to have insight into her needs at this time. She demonstrates understanding of her options and the capacity to make decisions. Patient is open to the medical and therapy services' recommendations, but it is her goal, right now, to discharge home self-care. The patient reported agreement with the below plan with no further questions at this time Interventions Introduced hospital social work Completed psychosocial assessment Active, empathic, and reflective listening Supportive Counseling Engaged in discharge planning discussions Plan Patient plans to return home with spouse at discharge. Social work will continue to follow for any discharge needs. Social work will continue to be available to the patient and family for ongoing support and discussion of community resources Salvador Still, M.S.W. 12/29/2023 * Sherry Adan P.T. - 12/26/2023 3:09 PM CDT [facility] Evaluation/Treatment SUBJECTIVE Referring/Attending Provider: Elizabeth Doss M.D. Patient's Name: Latonya Gordon Medical Diagnosis: 1. Stroke (HCC) [I63.9] 2. 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 Status Post Fibromyalgia Primary Generalized Osteoarthritis Arthroplasty Total Hip Replacement Status Post Right Allergy Personal History Gastroesophageal Reflux Disease Without Esophagitis Hyperlipidemia Hypertension Essential Primary Malignant Melanoma Of Left Lower Limb Including Hip (HCC) Melanoma Leg Left (HCC) Wound Lower Leg Open Initial Left Stroke (HCC) Past Surgical History: Procedure Laterality Date APPLICATION WOUND VAC Left 12/17/2021 Procedure: APPLICATION WOUND VACUUM; Surgeon: Brenda Mansfield D.O.; Location: [facility] APPLICATION WOUND VAC 12/17/2021 Procedure: ; Surgeon: Brenda Mansfield D.O.; Location: [facility] APPLICATION WOUND VAC 12/17/2021 Procedure: ; Surgeon: Brenda Mansfield D.O.; Location: [facility] BIOPSY SENTINEL LYMPH NODE Left 12/17/2021 Procedure: SENTINEL LYMPH NODE BIOPSY, lower extremity.; Surgeon: Brenda Mansfield D.O.; Location: [facility] OR CATARACT EXTRACTION Bilateral 2015 DILATATION AND CURETTAGE EYE SURGERY HARVESTING SPLIT THICKNESS SKIN WITH GRAFTING Left 01/02/2022 Procedure: HARVESTING SPLIT-THICKNESS SKIN WITH GRAFTING from LEFT thigh to LEFT LOWER EXTREMITY WOUND, VAC dressing; Surgeon: Marysol Petty M.B.B.S.; Location: [facility] OR HYSTERECTOMY INNER EAR SURGERY Left 1999 JOINT REPLACEMENT Right 04/2020 [facility] TONSILLECTOMY VITRECTOMY - PARS PLANA 23 GAUGE Right 06/04/2021 Procedure: 23G pars plana vitrectomy, silicone oil removal, possible endolaser, possible gas.; Surgeon: Atiya Gonzalez M.D., Ph.D.; Location: [facility] WIDE LOCAL EXCISION SKIN - PRIMARY CLOSURE Left 12/17/2021 Procedure: WIDE LOCAL EXCISION MELANOMA LEFT POSTERIOR LOWER EXTREMITY, COVERED WITH INTEGRA; Surgeon: Brenda Mansfield D.O.; Location: [facility] OR History of Present Illness: Recent medical issues: On 11/20/23, 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 She describes these migraines as lasting no more than 10 minutes, relieved by lying down and sometimes occurring in the R side. Furthermore, she experiences fluttery vision which she describes a zig-zag pattern in her vision. This time the migraine did not resolve within 10 minutes and she noticed L arm and hand tingling, numbness and weakness that got worse overtime. On 11/21/23, pt went to [facility] and had a CT scan which did not identify a stroke. She was discharged home the same day but her symptoms did not improve. On 11/25/23, pt described her arm going numb suddenly while having lunch. She also describes face numbness on her left tongue and cheek that intermittently resolved. The same day she had an appointment with her family doctor, who arranged emergency transportation [place] [facility] [place] her L upper extremity hemiparesis recovered almost back to normal. On 12/17/23, pt noted weakness and numbness in her L lower extremity when exiting her vehicle. She describes her movement as her leg dragging on the ground and felt her leg buckle. At this point, the Lupper extremity was mostly back to baseline with mild numbness. The numbness in her face occurred in termittently. Following this event she went to [facility] ED. After being evaluated by [facility]'s ED, she was discharged home. She describes being able to walk with a cane. Over the following day the symptoms in her left lower extremity worsened. On 12/21/23, her left lower extremity felt so weak and numb that she could not walk from her bed to her bathroom. On 12/22/23, she [facility] to [place] [facility] work[facility] and management. Stroke etiology is still unclear but include symptomatic carotid stenosis and cardioembolic. Patient had CT angiogram and MR angiogram of head and neck which showed 25-30% stenosis of right proximal ICA with a thin rim of peripheral calcification. Now admitted to IRF or further progression of therapeutic goals. Please see Hospital Admission History and Physical for full history of present illness. Precautions Other Precautions: Fall Risk. L hemiparesis (leg>arm). Patient/Caregiver Goals: Return home safely with assistance of . Patient Comments: Patient was pleasant and agreeable to PT despite not having breakfast delivered this morning. Prior Function/Occupational Profile Dominant Hand: Right Lives With: Spouse ( is 86 years old) Receives Help From: Family ADL Assistance: Independent IADL/Homemaking Assistance: Independent IADL/Homemaking Assistance Comments: Patient stated they have a flue cleaner come 2x per month and her and her split finances. Notices difficulty with keyboarding Driving: Independent Driving Comments: Patient noted she had just returned to driving after her previous stroke in November, however, Vincent completes most of driving Occupational Role: Retired Occupational Role Comments: worked in [employer] Leisure Interests: reading, walking, book club Prior Mobility/Functional Transfers Level of [place]: Independent Gait Devices/Wheelchair Used Comments: Just prior to this hospitalization she was intermittently using a cane as she noticed her left leg was weakn. Prior to that she was independent without a device. Home Living Type of Home: House Home Layout: One level, Able to live on main level with bedroom/bathroom, Full bath main level, Laundry main level Home Access: Stairs to enter with rails Entrance Stairs: Number of Steps: 2 steps with railings. Bathroom Shower/Tub: Walk-in shower Walk-in shower location: Main floor Walk-in shower enclosure type: Sliding/glass door Bathroom Toilet: Comfort height Bathroom Accessibility: Yes How Accessible: Accessible via walker Home Living Comments: Patient preferred taking baths Home Equipment Home Adaptive Equipment: Fire And Safety Helper, Long-handled shoe horn, Sock aid Gait Devices Owned: Four-wheeled walker, Cane Bathroom Equipment: Shower chair without back Fall Risk (65 and older) Fall in the last 12 months: No Fall Risk Comments: Instability. L lower extremity weakness. OBJECTIVE Pain: mild complaints of pain hips, left achilles from prior surgeries Cognition Arousal/Alertness: Appropriate responses to stimuli Initiation: No difficulty with initiation Orientation: Oriented X4 Following Commands: One Step Commands One Step Commands: Follows one step commands consistently Safety/Judgment Comments: Patient demos limited insight into impaired midline Activity Tolerance Endurance: Tolerates 30+ minutes of activity Current Hearing Function: Hard of hearing - functional with hearing aids Baseline Vision/Correction: Does not wear glasses Light Touch: No deficits Paresthesia Comments: Pt reports she has some numbness in L foot basline from prior surgery Proprioception: No deficits Inattention/Neglect: No deficits observed Coordination Rapid Alternating Movements (Dysdiadochokinesia): Eyes Open: Impaired Coordination Comments: impaired rapid toe tapping with left LE compared to right LE ROM - Lower Extremity Screen: Addressed, no concerns noted Strength - Lower Extremity Screen: Impaired left Strength - Lower Extremity Screen Comments: Left hip abduction, extension and rotation is fair to fair-. Otherwise left LE strength is grossly 3+/5. Right LE is 5/5 strength. Balance Static Sitting-Balance: Good (Maintains balance without support) Dynamic Sitting-Balance: Good (Maintains balance without support), Fair (Maintains balance with handheld/contact guard assistance) Static Standing-Balance: Poor (Requires assistance to maintain balance) Dynamic Standing-Balance: Poor (Requires assistance to maintain balance) Balance Comments: Requires moderate reliance on walker for standing balance. Attempting stading without a device but patient required minimal assistance to maintain balance. Bed Mobility - Rolling # of Assistants: 1 Level of Assistance: Minimal assistance Cuing: Tactile Comments: Min A for folling on the mat table Bed Mobility - Supine to Sit # of Assistants: 1 Level of Assistance: Minimal assistance Device: None Cuing: Verbal, Tactile Comments: Min A for rolling to sidely to sitting on the mat Bed Mobility - Sit to Supine # of Assistants: 1 Level of Assistance: Minimal assistance Cuing: Verbal, Tactile Comments: Sit to supine required min A. Sit to Stand Transfers # of Assistants: 1 Transfer Surface: Chair, Wheelchair, Toilet/Commode Transfer Equipment: Front wheeled walker, Gait belt Level of Assistance: Minimal assistance Assessment/Delivery: Assessed, Instructed, Therapist assisted, Facilitated Comments: Cues for hand placement Stand to Sit Transfers # of Assistants: 1 Transfer Surface: Wheelchair, Toilet/Commode, Chair Transfer Equipment: Gait belt, Front wheeled walker Level of Assistance: Minimal assistance, Contact guard assistance Assessment/Delivery: Assessed, Instructed, Therapist assisted Comments: Cues for hand placement, alignment in front of the wheelchair, controlled sitting as patient tends to plop. Gait Assessment/Training Distance (m): 30 m Surface: Even, Smooth/hard Device: Gait belt, Front-wheeled walker # of Assistants: 1 Level of Assistance: Minimal assistance Quality/Pattern: Decreased heel strike, Decreased toe off Assessment of Gait: Patient ambulated using a front wheeled walker. Step lengths were shortened butfairly even. She intermittently slides left foot, lacking heel strike and toe off. Cueing Provided: Verbal, Tactile Training/Intervention: Therapist provided cues for heel strike on the left. Contact guard assistance/min A provided for steadying assistance. Response: Some mild complaints of dizziness. Stairs/Curb # Stairs: 8 Step Height (in): 6 in Rails: 2 Device: No device # of Assistants: 1 Level of Assistance: Minimal assistance Stair Navigation Pattern-Ascending: Step-to pattern Stair Navigation Lead Foot-Ascending: Right Stair Navigation Pattern-Descending: Step-to pattern Stair Navigation Lead Foot-Descending: Left Cueing Provided: Verbal, Tactile Training/Intervention: cues for sequence. Steadying assistance especially for left hip and knee when descending. Response: Patient initially complained of soreness around left achilles from sensitive area where she had prior surgery. But this improved with repetition. PT Neuromuscular Re-education Neuromuscular Re-education 1: While performing mat exercises and steps ups patient focused on motorcontrol and coordination of left LE Supine Exercise - Side Addressed: Bilateral Supine Exercise: Short arc quads, Bridging Exercise Mode: Active motion against gravity Supine Exercise 1: marching in hooklying Side Lying Exercises Side Lying Exercise - Side Addressed: Bilateral Exercise Mode: Active assistance (comment) Side Lying Exercise 1: sidelying clamshell exercise Standing Exercise - Side Addressed: Left Standing Exercise: Sidestepping, Step ups, Hip abduction Exercise Mode: Active motion against gravity, Active assistance (comment) Standing Exercise 1: Patient performed step ups and step downs backward on the bottom step using bilateral railings. Emphasis was on left LE neuromuscular reeducation/strengthening with hands on guidance. Quality Indicators: Roll Left and Right Assistance Needed: Physical assistance Physical Assistance Level: 25% or less CARE Score - Roll Left and Right: 3 Sit to Lying Assistance Needed: Physical assistance Physical Assistance Level: 25% or less CARE Score - Sit to Lyin Lying to Sitting on Side of Bed Assistance Needed: Physical assistance Physical Assistance Level: 25% or less CARE Score - Lying to Sitting on Side of Bed: 3 Sit to Stand Assistance Needed: Physical assistance Physical Assistance Level: 25% or less CARE Score - Sit to Stand: 3 Chair/Eil-mz-Gotio Transfer Assistance Needed: Physical assistance Physical Assistance Level: 25% or less CARE Score - Chair/Xlx-rj-Xjuqo Transfer: 3 Car Transfer Assistance Needed: Physical assistance Physical Assistance Level: 25% or less CARE Score - Car Transfer: 3 Walk 10 Feet Assistance Needed: Physical assistance Physical Assistance Level: 25% or less CARE Score - Walk 10 Feet: 3 Walk 50 Feet with Two Turns Assistance Needed: Physical assistance Physical Assistance Level: 25% or less CARE Score - Walk 50 Feet with Two Turns: 3 Walk 150 Feet Reason if not Attempted: Safety concerns CARE Score - Walk 150 Feet: 88 Walking 10 Feet on Uneven Surfaces Reason if not Attempted: Safety concerns CARE Score - Walking 10 Feet on Uneven Surfaces: 88 1 Step (Curb) Assistance Needed: Physical assistance Physical Assistance Level: 25% or less CARE Score - 1 Step (Curb): 3 4 Steps Assistance Needed: Physical assistance Physical Assistance Level: 25% or less CARE Score - 4 Steps: 3 12 Steps Reason if not Attempted: Safety concerns CARE Score - 12 Steps: 88 Picking Up Object Reason if not Attempted: Safety concerns CARE Score - Picking Up Object: 88 Wheel 50 Feet with Two Turns Assistance Needed: Physical assistance Physical Assistance Level: Total assistance CARE Score - Wheel 50 Feet with Two Turns: 1 Wheel 150 Feet Assistance Needed: Physical assistance Physical Assistance Level: Total assistance CARE Score - Wheel 150 Feet: 1 Education Provided to: Latonya Learner's Response: Requires continued education At the end of today's therapy session patient was left seated in bedside chair with an appropriate call light within reach. Patient's needs and questions addressed during today's session. Assessment Mrs. Latonya Gordon is an 83 year old female with acute/subacute right frontal strokes who presents with left sided hemiparesis. Her sensation is intact but she presents with impaired coordination and weakness. This is impacting the safety and independence of her mobility. She is requiring min hands on assistance for bed mobs, transfers, ambulation with a walker, and stair climbing. She lives with her in [place] in a home in which she can function on the main level. There are 2 steps to enter their home. She is motivated to return home and has good family support. Rehab Potential: Ms. Gordon has Good potential to achieve established physical therapy goals withinthe time frame outlined below. 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 PT Goal #1 Date: 01/01/24 PT Goal #1 Status: Progressing PT Goal #2: STG: Patient well negotiate 8 steps using bilateral railings with contact guard assistance in a reciprocal pattern. PT Goal #2 Status: Progressing PT Goal #3: LTG: Patient will ambulate household distances with least restrictive assistive device with supervision to promote a safe discharge. PT Goal #3 Date: 01/07/24 PT Goal #3 Status: Progressing PT Goal #4: LTG: Patient will ambulate a flight of stairs using a hand rail with standby assistanceto promote a safe discharge. PT Goal #4 Date: 01/07/24 PT Goal #4 Status: Progressing Plan Patient agrees with the plan of care and goals. Treatment Plan: PT Frequency: 6 times per week PT Amount: 2 visits per day PT Inpatient Duration : Until goals are met or hospital discharge Plan: Plan of care initiated PT Plan Comments: Progressive therapeutic functional activities, neuromuscular re-education for left side, gait and balance training, stair training, patient/family Education Treatment interventions may include: Treatment/Interventions: Therapeutic exercise, Therapeutic functional activity, Neuromuscular re-education, Gait training Other PT Interventions: Progressive therapeutic functional activities, neuromuscular re-education for left side, gait and balance training, stair training, patient/family Education Clinical Presentation: Stable Number of Examination elements: 4+ Clinical Decision Making: Moderate complexity clinical decision making Time Spent with Patient Evaluations PT Eval - Mod Complexity: 30 min Therapeutic Interventions Gait Training (min): 15 min Neuromuscular Re-Education (min): 30 min Therapeutic Activity (min): 15 min Time Tracking Total Timed Units (min): 60 min Total Treatment Time (min): 90 min PT Individual : 90 Minutes Sherry Adan P.T. * Malgorzata Horan O.T., O.TGui - 12/26/2023 7:29 AM CDT Occupational Therapy [facility] Inpatient Evaluation/Treatment SUBJECTIVE Referring/Attending Provider: Elizabeth Doss M.D. Patient's Name: Latonya Gordon Reason for Referral: OT Eval & Treat- IRF Medical Diagnosis: 1. Stroke (HCC) [I63.9] 2. 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 Status Post Fibromyalgia Primary Generalized Osteoarthritis Arthroplasty Total Hip Replacement Status Post Right Allergy Personal History Gastroesophageal Reflux Disease Without Esophagitis Hyperlipidemia Hypertension Essential Primary Malignant Melanoma Of Left Lower Limb Including Hip (HCC) Melanoma Leg Left (HCC) Wound Lower Leg Open Initial Left Stroke (HCC) Past Surgical History: Procedure Laterality Date APPLICATION WOUND VAC Left 12/17/2021 Procedure: APPLICATION WOUND VACUUM; Surgeon: Brenda Mansfield D.O.; Location: [facility] APPLICATION WOUND VAC 12/17/2021 Procedure: ; Surgeon: Brenda Mansfield D.O.; Location: [facility] APPLICATION WOUND VAC 12/17/2021 Procedure: ; Surgeon: Brenda Mansfield D.O.; Location: [facility] BIOPSY SENTINEL LYMPH NODE Left 12/17/2021 Procedure: SENTINEL LYMPH NODE BIOPSY, lower extremity.; Surgeon: Brenda Mansfield D.O.; Location: [facility] OR CATARACT EXTRACTION Bilateral 2014 DILATATION AND CURETTAGE EYE SURGERY HARVESTING SPLIT THICKNESS SKIN WITH GRAFTING Left 01/02/2022 Procedure: HARVESTING SPLIT-THICKNESS SKIN WITH GRAFTING from LEFT thigh to LEFT LOWER EXTREMITY WOUND, VAC dressing; Surgeon: Marysol Petty M.B.B.S.; Location: [facility] HYSTERECTOMY INNER EAR SURGERY Left 1999 JOINT REPLACEMENT Right 04/2020 [facility] TONSILLECTOMY VITRECTOMY - PARS PLANA 23 GAUGE Right 06/04/2021 Procedure: 23G pars plana vitrectomy, silicone oil removal, possible endolaser, possible gas.; Surgeon: Atiya Gonzalez M.D., Ph.D.; Location: [facility] WIDE LOCAL EXCISION SKIN - PRIMARY CLOSURE Left 12/17/2021 Procedure: WIDE LOCAL EXCISION MELANOMA LEFT POSTERIOR LOWER EXTREMITY, COVERED WITH INTEGRA; Surgeon: Brenda Mansfield D.O.; Location: [facility] OR History of Present Illness: Recent medical issues: On 11/20/23, 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 She describes these migraines as lasting no more than 10 minutes, relieved by lying down and sometimes occurring in the R side. Furthermore, she experiences fluttery vision which she describes a zig-zag pattern in her vision. This time the migraine did not resolve within 10 minutes and she noticed L arm and hand tingling, numbness and weakness that got worse overtime. On 11/21/23, pt went to [facility] and had a CT scan which did not identify a stroke. She was discharged home the same day but her symptoms did not improve. On 11/25/23, pt described her arm going numb suddenly while having lunch. She also describes face numbness on her left tongue and cheek that intermittently resolved. The same day she had an appointment with her family doctor, who arranged emergency transportation to [facility] [place] her L upper extremity hemiparesis recovered almost back to normal. On 12/17/23, pt noted weakness and numbness in her L lower extremity when exiting her vehicle. She describes her movement as her leg dragging on the ground and felt her leg buckle. At this point, the Lupper extremity was mostly back to baseline with mild numbness. The numbness in her face occurred in termittently. Following this event she went to [facility]'s ED. After being evaluated by [facility]'s ED, she was discharged home. She describes being able to walk with a cane. Over the following day the symptoms in her left lower extremity worsened. On 12/21/23, her left lower extremity felt so weak and numb that she could not walk from her bed to her bathroom. On 12/22/23, she arrived to [facility] EDfor workup and management. Stroke etiology is still unclear but include symptomatic carotid stenosis and cardioembolic. Patient had CT angiogram and MR angiogram of head and neck which showed 25-30% stenosis of right proximal ICA with a thin rim of peripheral calcification. Now admitted to IRF or further progression of therapeutic goals. See Hospital Admission History and Physical for full history of present illness. Precautions Other Precautions: Fall Risk. L hemiparesis (leg>arm). Patient/Caregiver Goals: Return home safely with assistance of . Pt comments: Pt is agreeable to therapy. Prior Function/Occupational Profile Dominant Hand: Right Lives With: Spouse Receives Help From: Family ADL Assistance: Independent IADL/Homemaking Assistance: Independent IADL/Homemaking Assistance Comments: Patient stated they have a flue cleaner come 2x per month and her and her split finances. Notices difficulty with keyboarding Driving: Independent Driving Comments: Patient noted she had just returned to driving after her previous stroke in November, however, Vincent completes most of driving Occupational Role: Retired (from working in the [employer] Prior Mobility/Functional Transfers Level of [place]: Independent (without gait aid.) Gait Devices/Wheelchair Used: Cane (Patient owns single point cane and utilized for long distances.Also has borrowed four-wheeled walker and utilized for a short period of time) Home Living Type of Home: House Home Layout: One level, Able to live on main level with bedroom/bathroom, Full bath main level, Laundry main level (One level home with a basement (rarely uses). All needs can be met on the main level.) Home Access: Stairs to enter with rails (3 step entry with rail.) Entrance Stairs: Rails: Left Entrance Stairs: Number of Steps: 2. Family looking into adding railing on R side Bathroom Shower/Tub: Walk-in shower Walk-in shower location: Main floor Walk-in shower enclosure type: Sliding/glass door Bathroom Toilet: Comfort height Bathroom Accessibility: Yes How Accessible: Accessible via walker Home Living Comments: Patient preferred taking baths Home Equipment Home Adaptive Equipment: Fire And Safety Helper, Long-handled shoe horn, Sock aid Gait Devices Owned: Four-wheeled walker, Cane Bathroom Equipment: Shower chair without back (Shower bench. Grab bars.) Fall Risk (65 and older) Fall in the last 12 months: No Fall Risk Comments: Instability. L lower extremity weakness. OBJECTIVE Balance Static Sitting-Balance: Good (Maintains balance without support) Dynamic Sitting-Balance: Fair (Maintains balance with handheld/contact guard assistance) Static Standing-Balance: Poor (Requires assistance to maintain balance), Fair (Maintains balance with handheld/contact guard assistance) Dynamic Standing-Balance: Poor (Requires assistance to maintain balance) Activity Tolerance Endurance: Tolerates 10-20 minutes of activity Baseline Vision/Correction: Does not wear glasses Current Vision Comments: Denies changes to vision Paresthesia Comments: Pt reports she has some numbness in L foot basline from prior surgery Proprioception: No deficits Current Hearing Function: Hard of hearing - functional with hearing aids ROM - Upper Extremity Screen: Addressed, no concerns noted ROM - Lower Extremity Screen: Addressed, no concerns noted Strength - Upper Extremity Screen: Impaired left Gross Hand Function Right Hand Gross Grasp: Functional Left Hand Gross Grasp: Functional Right Hand Coordination: Functional Left Hand Coordination: Impairment noted Grooming Grooming Location: Standing at sink, Chair Grooming Delivery: Assessed, Educated, Instructed, Therapist assisted, Facilitated Grooming Comments: Pt completes washing face and oral care standing at the sink wiht front wheeled walker and contac guard assistance. She stands approximately 5 minutes before requiring a seated rest break. She completes hair care seated. Sit to Stand Transfers # of Assistants: 1 Transfer Surface: Bed, Chair, Toilet/Commode Transfer Equipment: Front wheeled walker, Gait belt Level of Assistance: Minimal assistance Assessment/Delivery: Assessed, Instructed, Therapist assisted, Facilitated Comments: Cues for hand placement. Stand to Sit Transfers # of Assistants: 1 Transfer Surface: Bed, Toilet/Commode, Chair Transfer Equipment: Gait belt, Front wheeled walker Level of Assistance: Minimal assistance, Contact guard assistance Assessment/Delivery: Assessed, Instructed, Therapist assisted Comments: Cues for hand placement Bed, Chair, Wheelchair Transfers # of Assistants: 1 Transfer Surface: Bed, Chair Transfer Approach: Ambulating, To Transfer Equipment: Front wheeled walker Level of Assistance: Minimal assistance Assessment/Delivery: Assessed, Therapist assisted, Facilitated Quality Indicators: Repetition of Three Words (First Attempt): 3 Temporal Orientation: Year: Correct Temporal Orientation: Month: Accurate within 5 days Temporal Orientation: Day: Correct Recall: Sock: Yes, no cue required Recall: Blue: Yes, no cue required Recall: Bed: Yes, no cue required BIMS Summary Score: 15 Hearing, Speech, and Vision Ability to Hear: Adequate Ability to See in Adequate Light: Adequate Expression of Ideas and Wants: Without difficulty Understanding Verbal and Non-Verbal Content: Understands Oral Hygiene Assistance Needed: Incidental touching, Verbal cues Comment: Pt completes oral care standing at sink with fww. No physical assist needed, contact guardfor standing CARE Score - Oral Hygiene: 4 Toileting Hygiene Assistance Needed: Incidental touching Comment: Pt performs hygiene seated without assist, pt manages underwear over hips standing with front wheeled walker with contact guard asisstnace and extra time. CARE Score - Toileting Hygiene: 4 Upper Body Dressing Assistance Needed: Physical assistance, Set-up / clean-up Physical Assistance Level: 26%-50% Comment: OT assistance to manage bra clasps and threading arms bilaterally, pt dons shirt overhead without assist while seated CARE Score - Upper Body Dressin Lower Body Dressing Assistance Needed: Physical assistance, Set-up / clean-up Physical Assistance Level: 26%-50% Comment: OT assistance for initiating threading of briefs and pants, cues for strategy and positioing. OT contact guard assistance while standing with front wheeled walker to manage over hips. CARE Score - Lower Body Dressin Toilet Transfer Assistance Needed: Physical assistance, Incidental touching, Adaptive equipment Physical Assistance Level: 26%-50% Comment: Pt ambulates to and from toilet with front wheeled walker, with minimal to moderate assistance. CARE Score - Toilet Transfer: 3 Hand Testing: Right Hand Left Hand Delivery Consultant 12, 10, 10 kg Female/75+ right hand norm = 19.5 kg 8,7, 7 kg Female/75+ left hand norm = 17.5 kg Box and Blocks Gross motor coordination was assessed using the Box and Blocks test, measured by the number of blocks moved in a minute, and compared against norms based on gender and age range. Right: 49 Left: 36 Female/75+ right hand norm = 65 blocks Female/75+ left hand norm = 63.6 blocks 9 Hole Peg Fine motor coordination was assessed using the 9 Hole Peg test, measured in seconds, and compared against norms based on gender and age range. Right: 36 seconds Left: 42 seconds Female/75+ right hand norm = 21.5 seconds Female/75+ left hand norm = 24.6 seconds Patient/Family Education: goals of therapy, role of OT At the end of today's therapy session patient was left seated in bedside chair with the chair alarmon with an appropriate call light within reach. Patient's needs and questions addressed during today's session. Assessment Latonya was seen today for OT evaluation s/p right proximal ICA stroke. At baseline she was independent in ADL/IADL's, driving and functional mobility with no adaptive equipment. Today she performed dressing tasks and toilet transfer with grossly minimal to moderate assistance and use of front wheeled walker. Pt demonstrates limitations due to impairments in LUE and LLE coordination, strength, balance and activity tolerance impacting ADL/IADL performance. Overall, this patient presents below their functional baseline and would benefit from continued skilled occupational therapy in order to address the above deficits and progress independence and safety in daily activities and self-care tasks. Rehab Potential: Ms. Gordon has good potential to achieve established occupational therapy goals within the time frame outlined below. Barriers to Discharge Home: Current functional status, Fall risk, Safety concerns Personal Factors: Balance impairment, Hearing impairment, Needs assistive device, Safety awareness Discharge Therapy Needs - OT: Ongoing skilled occupational therapy Level of Care Needed - OT: Assistance with toileting, Assistance with toilet/shower transfers, Assistance with medication set up/administration, Assistance with showering/bathing, Assistance with peoplesoft financial developer, Assistance with meal preparation, Assistance with dressing, Assistance with eating/feeding, Assistance with transportation, Assistance with housekeeping, Assistance with shopping, Physical assistance needed Skilled therapy can include occupational therapy provided by home health, outpatient clinic, or a post-acute facility. The location of these services is determined by the patient's care team in partnership with patient/family. Recommended Adaptive Equipment - OT: Other (Comment) (ongoing assessment) Functional Goals and Timeframes: OT Goal #1: By next ITC, pt will complete full grooming routine standing with contact guard assistance in order to promote increased independence in ADL/IADL tasks. OT Goal #2: By next ITC, pt will complete toilet transfer and toileting with no more than minimal assistance in order to promote increased independence in ADL/IADL tasks. OT Goal #3: By dischargre, pt will demonstrate shower transfer with no more than contact guard assistance in simulated home environment in order to promote increased independence in ADL/IADL tasks. OT Goal #4: By dischargre, pt will demonstrate understanding regarding recommended equipment, strategies and level of assist needed in order to promote increased independence in ADL/IADL tasks. Progress: Progressing toward goals Plan Patient agrees with the plan of care and goals. Treatment Plan: OT Frequency: 5 times per week OT Amount: 1 visit per day Plan: Plan of care initiated Treatment interventions may include: Treatment Interventions: Therapeutic exercise, Therapeutic functional activity, Neuromuscular re-education, Self-care/home management, Cognitive skills training, Therapeutic modalities as needed Occupational Profile and History review: Expanded Performance Deficits: at least 5 performance deficits Evaluation Complexity: Moderate Time Spent with Patient Evaluations OT Eval - Mod Complexity: 30 min Therapeutic Interventions Home Management Training (min): 60 min Time Tracking Total Timed Units (min): 60 min Total Treatment Time (min): 90 min OT Individual: 90 Minutes Malgorzata Horan O.T., O.T.DMartha documented in this encounter Nursing Notes * Ale Leon, RMarthaN. - 01/01/2024 1:08 PM CDT Patient discharging to home with assistance from . Reviewed DC material with patient and . Picking up medications from home pharmacy. BP 148/64 Pulse 85 Temp 36.2 ??C Resp 15 Ht 157.5 cm Wt 69.4 kg SpO2 97% BMI 27.98 kg/m?? The Patient Portable Profile contains basic health information (personal, medical, functional). Information contained in the Profile is intended to be updated at each subsequent health encounter so that the patient's healthcare providers can be efficiently informed by more complete and accurate information. The Patient Portable Profile empowers the patient to be responsible for tracking his/her health information on a regular basis. The Patient Portable Profile was given to the patient/family on admission to the Inpatient Rehabilitation Unit by the Registered Nurse caring for them. The binder was updated throughout the stay. At dismissal, the following section(s) of the Patient Portable Profile binder were reviewed with the patient/family:Functional status, Equipment, Medications, After Visit Summary, Appointments, Educational Materials, Resources, Other Info The Patient Portable Profile binder was verified to be complete on: 12/31 Verified By: Ale Leon RN * Gary Nieto RMarthaN. - 12/30/2023 6:41 PM CDT Shift Goals: Clinical Goals for the Shift: Patient will remain safe in room. Identify possible barriers to meeting goals/advancing plan of care: impulsive, occasionally. End of Shift Summary: Patient was cooperative with cares and participated in all therapies today. She appropriately used call light to ask to use the bathroom. Patient's pain was controlled today with tylenol throughout shift, but plans to ask for usual pain medications as part of bedtime routine as per usual. Problem: PAIN - ADULT Goal: PT VERBALIZES/DEMONSTRATES ADEQUATE COMFORT LEVEL OR BASELINE Outcome: Progressing Problem: KNOWLEDGE DEFICIT Goal: Patient/family/caregiver demonstrates understanding of disease process, treatment plan, medications, and discharge instructions Outcome: Progressing Problem: SAFETY ADULT Goal: Maintain a safe environment Outcome: Progressing * Jessie Loyola R.N., RN - 12/29/2023 3:37 PM CDT Met with patient and spouse to discuss follow up appointments. We discussed options for outpatient therapy including [facility] in [place], [facility], and [place] [facility] (offers PT services only). Patient would like referral sent to [facility]. This was sent and requested they call her to schedule initial appointments. Follow up with her PCP was discussed with her as well as stroke clinic follow up. Patient will need a copy of her [facility] appointment guide at discharge. Outpatient PT and OT [facility] [id number] Referral sent. They will contact her to schedule appointments. Post Hospital Follow Up: January 06 at 9:[address] Vaishali Baeza MD [facility] [address] [place] [address] At time of dismissal please fax AVS facility and dismissal summary to PCP and outpatient therapy. Also please fax recent therapy notes for OT and PT to outpatient therapy. * Arti Kumar M.S.N., R.N. - 12/28/2023 10:39 PM CDT Shift Goals: Clinical Goals for the Shift: Pt will rate pain 3/10 or less with interventions as needed during the shift Identify possible barriers to meeting goals/advancing plan of care: Chronic pain End of Shift Summary: Pt remained safe during the shift. Pt rated pain 4/10 during the shift and was asleep for the pain reassessment. Pain was managed with rest and medication, see MAR. Problem: SAFETY ADULT Goal: Maintain a safe environment Note: Pt remained safe during the shift. * Jessie Loyola R.N., TAYLARCelia - 12/28/2023 2:49 PM CDT Met with rehabilitation team during interdisciplinary team conference. Afterwards met with patient and her son to update them on details from interdisciplinary team conference. Reviewed progress withtherapy and tentative dismissal date of December 31 to home with intermittent assistance. The t eam is recommending to continue with outpatient physical and occupational therapy, PMR follow up, and post hospital follow up with her PCP after discharge. She asked about outpatient therapy options in [place]. Otherwise would be interested in outpatient at [facility] in [place]. I will look into local options for neuro therapy after discharge. Post Hospital Follow Up: January 06 at 9:[address] Vaishali Baeza MD [facility] [address] [place] [address] At time of dismissal please fax AVS facility and dismissal summary to PCP. * Gary Nieto R.N. - 12/27/2023 6:30 PM CDT Shift Goals: Clinical Goals for the Shift: pt will remain free from falls Identify possible barriers to meeting goals/advancing plan of care: Lack of safety awareness. End of Shift Summary: Patient remained free from falls, but did trip chair alarm this morning when she got up from chair to retrieve belongings that had fallen from table to floor. Nurse stopped intoroom to assist patient back to chair. Participated in all other therapies; voided regularly - needs one add'l bladder scan to assure complete emptying. Neck pain treating with trip. cream during day, and lido patch overnight. Problem: PAIN - ADULT Goal: PT VERBALIZES/DEMONSTRATES ADEQUATE COMFORT LEVEL OR BASELINE Outcome: Progressing Problem: KNOWLEDGE DEFICIT Goal: Patient/family/caregiver demonstrates understanding of disease process, treatment plan, medications, and discharge instructions Outcome: Progressing Problem: SAFETY ADULT Goal: Maintain a safe environment Outcome: Progressing * Gayr Nieto R.N. - 12/26/2023 5:10 PM CDT Shift Goals: Clinical Goals for the Shift: Pt will remain safe and free of falls Identify possible barriers to meeting goals/advancing plan of care: Lack of safety awareness. End of Shift Summary: Patient was call light appropriate today and did not attempt any tranfers without staff assistance. Patient went off unit with visitor (son) for a while. She participated in allcares today. She is still needing bladder scans (3) to confirm no retention; she refused bladder scans overnight reportedly. Patient turns well in bed independently throughout day when napping. Problem: KNOWLEDGE DEFICIT Goal: Patient/family/caregiver demonstrates understanding of disease process, treatment plan, medications, and discharge instructions Outcome: Progressing Problem: SAFETY ADULT Goal: Maintain a safe environment Outcome: Progressing Problem: Incontinence and/or Moisture Goal: Skin integrity is maintained or improved Outcome: Progressing * Rocco Wynne R.N. - 12/25/2023 10:17 PM CDT Shift Goals: Clinical Goals for the Shift: Pt will remain safe and free of falls Identify possible barriers to meeting goals/advancing plan of care: PT/OT End of Shift Summary: Goal met. Patient refused Post void bladder scan. Electronically signed by: Sujata Wynne R.N. 12/25/23 10:17 PM CDT Problem: PAIN - ADULT Goal: PT VERBALIZES/DEMONSTRATES ADEQUATE COMFORT LEVEL OR BASELINE Outcome: Progressing Problem: SAFETY ADULT Goal: Maintain a safe environment Outcome: Progressing Problem: SAFETY ADULT - RISK FOR FALL AND OR FALL INJURY Goal: Patient remains free from fall/fall injury Outcome: Progressing documented in this encounter Miscellaneous Notes * Hospital Course - Millie Peoples D.O. - 12/25/2023 11:46 AM CDT PRE-REHABILITATION COURSE: In summary, Mrs. Latonya Gordon is an 83-year-old, right-hand dominant female from [place], [place]. Her medical history includes hypertension, hyperlipidemia, chronic pain and right MCA territory infarcts sustained in November 2023. She presented to the Emergency Department on December 16 with acute worsening of left hemiparesis found to have acute ischemia in the right MCA distribution. She is being admitted to the inpatient brain rehabilitation service with functional goals related to increasing strength of the left side and independence with ADLs. In summary, Mrs. Gordon had acute onset of left upper extremity weakness on November 19. She was evaluated at the [place] [facility] initially with a reportedly negative head CT. She presented again to the [facility] on November 24 after developing sudden worsening of left upperextremity weakness. She was admitted locally from November 24 - November 26 with MRI demonstrating infarct of the right precentral gyrus, multiple small foci of diffusion restriction in the right frontal deep white matter and parietal cortex representing acute infarction, and chronic left post central gyrus, parietal and deep white matter infarctions. Additional stroke workup included, CT angiogramhead and neck demonstrating moderate possible right ICA stenosis, TTE with ejection fraction 60-65%without comment on the left atrial or appendageal size or intracardiac thrombus. She was dischargedhome on dual antiplatelet therapy with aspirin 81 mg and clopidogrel 75 mg daily. Her left upper extremity strength was gradually improving. However, on December 16, she had sudden onset of left lower extremity weakness with worsening of her left upper extremity weakness. She presented [facility] Department where she was found to have new right MCA territory stroke concerning symptomatic carotid stenosis. She wassubsequently admitted to the neurology stroke and cerebrovascular disease service. Extensive strokeworkup was performed as follows: MRI without contrast on 12/21 revealed acute right MCA territory infarct including the right precentral gyrus MR angiogram of head and neck which showed 25-30% stenosis of right proximal ICA with predominantlynoncalcified atherosclerotic plaque in this region with a thin rim of peripheral calcification. No evidence of intra plaque hemorrhage, this study was limited by motion artifact. GERA which showed diffuse moderate immobile atheroma measuring 3-5 mm thickness with the ulceration of the descending thoracic aorta and aortic arch. There was no left atrial dilatation or left appendageal thrombus. Laboratory evaluation revealed normal thyroid function, hemoglobin A1c of 5.7% and lipid panel within total cholesterol 145, LDL 72, and HDL 51. Stroke mechanism is felt to be athero-embolic from her diffuse aortic arch atheroma. She has had extensive left MCA territorial infarcts as well as new right MCA territorial infarcts in the past 2 months. Cardioembolic etiology remains on the differential despite absence of a dilatation or intracardiac thrombus. Ongoing workup includes 30-day heart monitor to rule out atrial fibrillation. Despiteher compliance with taking aspirin and Plavix, she had a new right MCA territory stroke. As a result, she was transitioned to Brilinta [address] of Plavix with continued daily aspirin for a 30-day course. REHABILITATION COURSE: The patient was admitted to inpatient rehab on 12/25/23. The patient underwent comprehensive interdisciplinary inpatient rehabilitation with physical therapy, occupational therapy, speech therapy, recreational therapy, rehab psychology, rehab nursing, medical healthcare social worker, and project development manager. For updated functional status and ongoing therapy recommendations, please see below under Instructions for Ongoing Care. The patient made excellent progress and met criteria to be dismissed from inpatientrehabilitation. During her rehabilitation stay her anxiety was controlled with Atarax. For anticoagulation she was controlled on aspirin 81 mg and Brilinta 90 mg twice daily for 30 days (End date 01/22/2024). She progress with therapies to become supervision/setup before ADLs. And able to ambulate 48.8 m X2with a front wheeled walker and supervision. DISCHARGE PHYSICAL EXAM: GENERAL: Alert. No acute distress. HEENT: Normocephalic, atraumatic. Oral cavity and tongue are unremarkable. MUSCULOSKELETAL EXAM: EXTREMITIES: No swelling or erythema. No calf tenderness. Passive range of motion is functionally normal. SKIN: Exposed areas of skin are clean, dry, and intact with no evidence of cellulitis, pressure ulcers, or necrosis. CRANIAL NERVES: II: Visual crowley full in all quadrants. Pupils equal, round, and reactive to light III, IV, : Extraocular movements intact. No nystagmus. No ptosis. No dysconjugate gaze. VII: Symmetric smile. No facial droop. VIII: Hearing to fingers rubbing together intact bilaterally IX, X: Symmetric palate movements XI: Shoulder shrug intact and symmetric XII: Tongue protrudes midline SPEECH/LANGUAGE: Grossly normal. MUSCLE STRENGTH: (PINA scale: 5=normal to 0=plegic; right/left) -C5 (elbow flexors): 5/4 -C6 (wrist extensors): / -C7 (elbow extensors): / -C8 (flexion of middle finger DIP): / -T1 (little finger abduction): 12/11 -L2 (hip flexors): 12/11 -L3 (knee extensors): 12/12 -L4 (ankle dorsiflexors): 5/5 -L5 (long toe extensors): 5/3 -S1 (ankle plantar flexors): 5/4 TONE: Normal tone throughout upper and lower limbs. SENSATION: Globally intact. SATELLITE SIGN: Positive on the left documented in this encounter Plan of Treatment Upcoming Encounters Date Type Department Care Team (Late st Contact Info) Description 05/04/2024 3:00 PM CDT Education Department of Neurology in [place], [place] [address] [place] [address] Queta Quinn M.D. [address] [place] [address] Scheduled Referrals Name Type Priority Associated Diagnoses Orde r Schedule External referral PT (non-[place]) Outpatient Referral Routine Stroke (HCC) Ordered: 12/28/2023 External referral OT (non-[place]) Outpatient Referral Routine Stroke (HCC) Ordered: 12/28/2023 documented as of this encounter Visit Diagnoses Diagnosis Stroke (HCC)- Primary Stroke (HCC) [I63.9] Lack Of Coordination [R27.9] Weakness Muscle Gastroesophageal Reflux Disease Without Esophagitis Allergy Personal History Hyperlipidemia Hypertension Essential Primary Malignant Melanoma Of Left Lower Limb Including Hip (HCC) documented in this encounter Administered Medications Inactive Administered Medications - up to 3 most recent administrations Medication Order MAR Action Action Date Dose Rate Site acetaminophen tablet 1,000 mg (TYLENOL) 1,000 mg, oral, Every 8 hours PRN, mild pain or score 1-3 of 10, moderate pain or score 4-6 of 10, Starting on Thu12/25/23 at 1331 Given 12/28/2023 8:18 AM CDT 1,000 mg Given 12/27/2023 8:47 PM CDT 1,000 mg Given 12/27/2023 6:51 AM CDT 1,000 mg acetaminophen tablet 1,000 mg (TYLENOL) 1,000 mg, oral, Every 6 hours PRN, mild pain or score 1-3 of 10, moderate pain or score 4-6 of 10, Starting on Thu12/28/23 at 1400 Given 01/01/2024 8:06 AM CDT 1,000 mg Given 12/31/2023 10:03 PM CDT 1,000 mg Given 12/31/2023 3:59 PM CDT 1,000 mg vvyhszrzviecb-asvgucqrki-jcsfqoef in Lipoderm 2%-5%-5% cream 1 g 1 g, topical, 2 times daily, First dose (after last modification) on Thu12/25/23 at 2100 Given 01/01/2024 8:06 AM CDT 1 g Given 12/31/2023 9:09 AM CDT 1 g Given 12/29/2023 8:11 AM CDT 1 g aspirin chewable tablet 81 mg 81 mg, oral, Daily, First dose (after last modification) on Thu12/26/23 at 0900 Given 01/01/2024 8:06 AM CDT 81 mg Given 12/31/2023 9:09 AM CDT 81 mg Given 12/30/2023 8:12 AM CDT 81 mg bisacodyL suppository 10 mg (DULCOLAX) 10 mg, rectal, Daily PRN, constipation, Starting on Thu12/25/23 at 1332, Patient preference. If patient unable to state preference, notify provider for clarification if multiple medications are available. enoxaparin injection 40 mg (LOVENOX) 40 mg, subcutaneous, Every 24 hours scheduled, First dose on Thu12/26/23 at 0900 Given 12/30/2023 8:12 AM CDT 40 mg Left Lower Abdomen Given 12/29/2023 8:11 AM CDT 40 mg Le ft Lower Abdomen Given 12/28/2023 8:21 AM CDT 40 mg Ri ght Lower Abdomen heparin (porcine) injection 5,000 Units 5,000 Units, subcutaneous, Every 8 hours scheduled, First dose (after last modification) on Thu12/25/23 at 1400, For 2 doses Given 12/25/2023 9:22 PM CDT 5,000 Units Left Lower Abdomen Given 12/25/2023 2:13 PM CDT 5,000 Units L eft Upper Abdomen hydrOXYzine tablet 25 mg (ATARAX) 25 mg, oral, Every 8 hours PRN, anxiety, Starting on Thu12/25/23 at 1343 Given 12/31/2023 3:15 AM CDT 25 mg lidocaine 5 % 1 patch (LIDODERM) 1 patch, transdermal, Administer over 12 Hours, Daily at bedtime, First dose (after last modification) on Thu12/25/23 at 2100, Remove after 12 hours. Medication Applied 12/31/2023 10:01 PM CDT 1 patch Back Medication Applied 12/30/2023 8:50 PM CDT 1 patch Upper Back Medication Applied 12/29/2023 8:50 PM CDT 1 patch Upper Back losartan tablet 50 mg (COZAAR) 50 mg, oral, Daily at bedtime, First dose (after last modification) on Thu12/25/23 at 2100 Given 12/31/2023 10:01 PM CDT 50 mg Given 12/30/2023 8:50 PM CDT 50 mg Given 12/29/2023 8:50 PM CDT 50 mg oxyCODONE IR tablet 5 mg (ROXICODONE) 5 mg, oral, Daily at bedtime, First dose (after last modification) on Thu12/25/23 at 2100 Given 12/31/2023 10:01 PM CDT 5 mg Given 12/30/2023 8:50 PM CDT 5 mg Given 12/29/2023 8:50 PM CDT 5 mg polyethylene glycol powder packet 17 g (MIRALAX) 17 g, oral, Daily PRN, constipation, Starting on Thu12/25/23 at 1334, Patient preference. If patient unable to state preference, notify provider for clarification if multiple medications are available. For dysphagia patients, use appropriate thickener for dietary compliance if needed. Avoid mixing with starch-based thickened liquids. rosuvastatin tablet 20 mg (CRESTOR) 20 mg, oral, Daily, First dose (after last modification) on Thu12/26/23 at 0900 Given 01/01/2024 8:06 AM CDT 20 mg Given 12/31/2023 9:09 AM CDT 20 mg Given 12/30/2023 8:12 AM CDT 20 mg sennosides tablet 17.2 mg (SENOKOT) 17.2 mg, oral, Daily with midday meal, First dose on Thu12/26/23 at 1200 Given 12/31/2023 12:29 PM CDT 17.2 mg Given 12/30/2023 1:52 PM CDT 17.2 mg Given 12/29/2023 11:17 AM CDT 17.2 mg ticagrelor tablet 90 mg (BRILINTA) 90 mg, oral, 2 times daily, First dose (after last modification) on Thu12/25/23 at 2100 Given 01/01/2024 8:06 AM CDT 90 mg Given 12/31/2023 10:01 PM CDT 90 mg Given 12/31/2023 9:09 AM CDT 90 mg documented in this encounter Active and Recently Administered Medications Times are shown in CDT. Scheduled Medication Order 12/30/2023 12/31/2023 01/01/2024 amitriptyline-gabapent in-ketamine in Lipoderm 2%-5%-5% cream 1 g 1 g, topical, 2 times daily, First dose (after last modification) on Thu12/25/23 at 2100 0812 (Not Given - Provider: Gary Nieto R.N. - Reason: Patient/family refused)2100 (Not Given - Provider: Claudy Gama R.N. - Reason: Patient/family refused) 09 (Given - Provider: Lucas Chawla R.N.)2155 (Not Given - Provider: Gary Nieto R.N. - Reason: Patient/family refused) 0806 (Given - Provider: Ale Leon R.N.) aspirin chewable tablet 81 mg 81 mg, oral, Daily, First dose (after last modification) on Thu12/26/23 at 0900 0812 (Given - Provider: Gary Nieto R.N.) 0909 (Given - Provider: Lucas Chawla R.N.) 0806 (Given - Provider: Ale Leon R.N.) enoxaparin injection 40 mg (LOVENOX) (CANCELED) 40 mg, subcutaneous, Every 24 hours scheduled, First dose on Thu12/26/23 at 0900 0812 (Given - Provider: Gary Nieto R.N.) lidocaine 5 % 1 patch (LIDODERM) 1 patch, transdermal, Administer over 12 Hours, Daily at bedtime, First dose (after last modification) on Thu12/25/23 at 2100, Remove after 12 hours. 0813 (Medication Removed - Provider: Gary Nieto R.N.)2049 (Medication Applied - Provider: Claudy Gama R.N.) 0924 (Medication Removed - Provider: Lucas Chawla R.N.)220 (Medication Applied - Provider: Gary Nieto R.N.) 1059 (Medication Removed - Provider: Ale Leon R.N.) losartan tablet 50 mg (COZAAR) 50 mg, oral, Daily at bedtime, First dose (after last modification) on Thu12/25/23 at 2100 0 (Given - Provider: Claudy Gama R.N.) 2200 (Given - Provider: Gary Nieto R.N.) oxyCODONE IR tablet 5 mg (ROXICODONE) 5 mg, oral, Daily at bedtime, First dose (after last modification) on Thu12/25/23 at 2099 2049 (Given - Provider: Claduy Gama R.N.) 2200 (Given - Provider: Gary Nieto R.N.) rosuvastatin tablet 20 mg (CRESTOR) 20 mg, oral, Daily, First dose (after last modification) on Thu12/26/23 at 0900 0812 (Given - Provider: Gary Nieto R.N.) 0909 (Given - Provider: Lucas Chawla R.N.) 0806 (Given - Provider: Ale Leon R.N.) sennosides tablet 17.2 mg (SENOKOT) 17.2 mg, oral, Daily with midday meal, First dose on 12/26/23 at 1200 1352 (Given - Provider: Gary Nieto R.N.) 1229 (Given - Provider: Millie Malcolm R.N.) 1200 (Due) ticagrelor tablet 90 mg (BRILINTA) 90 mg, oral, 2 times daily, First dose (after last modification) on Thu12/25/23 at 2100 0812 (Given - Provider: Gary Nieto R.N.)2049 (Given - Provider: Claudy Gama R.N.) 0909 (Given - Provider: Lucas Chawla R.N.)2200 (Given - Provider: Gary Nieto R.N.) 0806 (Given - Provider: Ale A Edward, R.N.) PRN Medication Order 12/30/2023 12/31/2023 01/01/2024 acetaminophen tablet 1,000 mg (TYLENOL) 1,000 mg, oral, Every 6 hours PRN, mild pain or score 1-3 of 10, moderate pain or score 4-6 of 10, Starting on Thu12/28/23 at 1400 0812 (Given - Provider: Gary Nieto RRashel)1352 (Given - Provider: Gary Nieto R.N.)2100 (Given - Provider: Claduy Gama RMarthaNMartha) 0315 (Given - Provider: Demetria Barragan R.N.)0913 (Given - Provider: Lucas Chawla R.N.)1559 (Given - Provider: Andrea MayaN.)2203 (Given - Provider: Gary Nieto R.N.) 0806 (Given - Provider: Ale Leon RMarthaN.) albuterol nebulizer solution 2.5 mg 2.5 mg, nebulization, Every 4 hours PRN, shortness of breath, wheezing, Starting on Thu12/25/23 at 1331, Albuterol nebs were interchanged for albuterol/levalbuterol MDI (same frequency) bisacodyL suppository 10 mg (DULCOLAX) 10 mg, rectal, Daily PRN, constipation, Starting on Thu12/25/23 at 1332, Patient preference. If patient unable to state preference, notify provider for clarification if multiple medications are available. hydrOXYzine tablet 25 mg (ATARAX) 25 mg, oral, Every 8 hours PRN, anxiety, Starting on Thu12/25/23 at 1343 0315 (Given - Provider: Demetria Barragan RMarthaNMartha) polyethylene glycol powder packet 17 g (MIRALAX) 17 g, oral, Daily PRN, constipation, Starting on Thu12/25/23 at 1334, Patient preference. If patient unable to state preference, notify provider for clarification if multiple medications are available. For dysphagia patients, use appropriate thickener for dietary compliance if needed. Avoid mixing with starch-based thickened liquids. documented in this encounter Additional Health Concerns Assessment Noted Time PHQ-9 Depression Total Score: 0 12/31/19 24 12:44 PM CDT documented as of this encounter Care Teams Electrician Ship Relationship Specialty Start Date End Date Elsewhere, Pcp PCP - General Family Medicine 06/04/21 documented as of this encounter
--- OUTSIDE RECORDS SUMMARY | 2024-02-26 15:57 | XMS_ITS | Encounter Summary ---
Author Organization [facility] Address [address] [place] [id number] Care Team Providers Care Supervisor Mending Name Role Phone Elsewhere, Pcp Primary Care Provider Unavailabl e Reason for Visit * Physical Therapy (Routine) - Closed Specialty Diagnoses / Procedures Referred By Darin t Referred To Contact Diagnoses Stroke (HCC) Procedures PMR Brain rehabilitation program (PMR Internal) Xiomara Clemens D.O. [address] [place] [address] [facility] Referral ID Status Reason Start Date Expiration Date Visits Re quested Visits Authorized [id number] Closed 12/28/2023 12/27/2024 1 1 Encounter Details Date Type Department Care Team (Latest Contact Info) Description 02/05/2024 2:00 PM CDT Comprehensive Visit Department of Physical Medicine and Rehabilitation in [place], [place] [address] [place] [phone] Xiomara Clemens D.O. [address] [place] [phone] Nelli Reyes APRN, MONITOR WORKER, M.S. [address] [place] [phone] Stroke Cerebrovascular Accident Personal History (Primary Dx); Stroke (HCC) Discharge Disposition: Home or Self Care Social History Tobacco Use Types Packs/Day Years Used Date Smoking Tobacco: Never Smokeless Tobacco: Never Alcohol Use Standard Drinks/Week Comments Yes 7 (1 standard drink = 0.6 oz pur e alcohol) Daily caffeine [facility] Utilities Answer Date Recorded In the past 12 months has e electric, gas, oil, or water [email or web address] threatened to shut off services in your [...] How often do you attend chur or gnosticist services? More than 4 times per year 09/27/2022 Do you belong to any clubs o r organizations such as latter-day groups, unions, fraternal or athletic groups, or [...] Answer Date Recorded PHQ-2 Score 0 01/27/2024 [facility] - Occupational Stress Questionnaire Answer [...] have a [facility] place to live 01/23/2024 Education Answer Date Recorded What is the highest level of school you have completed or the highest degree you have received? Associate degree: occupational, technical, or vocational program 09/27/2022 Sex and Gender Information Value Date Recorded Sex Assigned at Female 06/28/2018 10:53 AM BRIM STRETCHING MACHINE OPERATOR Gender Identity Female 06/28/2018 10:53 AM BRIM STRETCHING MACHINE OPERATOR Sexual Orientation Straight 06/28/2018 10 :53 AM BRIM STRETCHING MACHINE OPERATOR documented as of this encounter Progress Notes * Nelli Reyes APRN, CRISSY, M.S. - 02/05/2024 2:00 PM CDT SUBJECTIVE REQUESTING PROVIDER Xiomara Clemens D.O. CHIEF COMPLAINT/REASON FOR VISIT Scheduled brain rehab clinic follow up HISTORY OF PRESENT ILLNESS Mrs. Latonya Gordon is a 84 y.o. female who arrives accompanied by her to her brain clinic follow-up appointment today. Her medical history includes hypertension, hyperlipidemia, chronic pain and right MCA territory infarcts sustained in November 2023. She presented to the Emergency Department on 12/17/2023 with acute worsening of left hemiparesis found to have acute ischemia in the right MCA distribution. She was admitted to inpatient rehab on 12/25/23 and underwent comprehensive interdisciplinary inpatient rehabilitation. She dismissed to home on 01/01/2024. She returns today for follow-up. She is currently participating in outpatient physical therapy 2 days per week. She is working on mobility, balance, strength and fall prevention strategies. She was evaluated by occupational therapy but has been dismissed. She unfortunately had a recent fall while at latter-day and developed a painful t ailbone. This has been evaluated by her primary care provider who feels in his a sprained tailbone.She reports it is gradually improving in the past few days. Overall she is doing well from a recovery standpoint. She denies difficulties with her cognition, headaches, vision changes or dizziness. She is sleeping well at night. She has a history of optic migraine, noting that she had an episode at the time of her most recent stroke so this has made her somewhat nervous about recurrent stroke. She was recently evaluated by Neurology. Her stroke was felt to be atherosclerotic in origin. She is on Brilinta for antiplatelet therapy. OBJECTIVE There were no vitals taken for this visit. PHYSICAL EXAM Ms. Gordon is alert and oriented, in no acute distress, thought process is linear and goal-directed. Cranial nerves 2-12 are intact including visual crowley and extraocular movements. She is equal strength in bilateral upper and lower extremities. Her gait is grossly normal but is reduced rate and wide-based. She utilizes a single-point cane for ambulation. ASSESSMENT / PLAN #1 Acute/subacute right frontal strokes #2 Left hemiparesis, improved #3 History of right MCA territory infarcts November 2023 with good functional recovery #4 Hypertension #5 Functional limitations in mobility, self-cares, and prior roles secondary to impairments listed above and below #6 Recent fall with tailbone sprain Ms. Gordon returns today for follow-up. I have reviewed the medical record to date in discussing overall plan of care in detail with the patient and her . She is currently participating in outpatient physical therapy 2 days per week. We discussed the indication for ongoing therapy and reducing frequency as indicated by her treating therapists as she continues to meet her goals. Currently she has scheduled twice a week through the end of February. I discussed the common symptomology of stroke, the natural course of recovery and the need to return to activities in a symptom limited fashion. I encouraged the patient to utilize frequent rest breaks to manage symptoms and fatigue. Indications for ongoing rehabilitation discussed and reviewed. Patient verbalized understanding. At this time I do not think further interventions are necessary from rehabilitation standpoint. She is not currently driving however reports she was cleared for return to driving. She does not feel ready yet due to her tailbone pain. We discussed gradual return to driving when she is feeling comfortable. I discussed the common symptomology of stroke, the natural course of recovery and the need to return to activities in a symptom limited fashion. I encouraged the patient to utilize frequent rest breaks to manage symptoms and fatigue. Indications for ongoing rehabilitation discussed and reviewed. Patient verbalized understanding. I provided Ms. Gordon with my name and contact number and encouraged them to call with any rehabilitation needs in the future. All questions were answered to the best of my ability and the patient???s apparent satisfaction. Follow up in: As medically necessary Education We discussed the diagnosis and treatment plan in detail. The patient expressed understanding of thecontent. No apparent learning barriers were identified; learning preferences include listening. Education was provided on stroke and stroke prevention, ongoing rehabilitation indications . I personally spent 30 minutes in care of the patient today. Time includes both non face to face andface to face patient care. documented in this encounter Plan of Treatment Upcoming Encounters Date Type Department Care Team (Late st Contact Info) Description 05/04/2024 3:00 PM CDT Education Department of Neurology in [place], [place] [address] [place] [phone] Queta Quinn M.D. [address] [place] [address] documented as of this encounter Visit Diagnoses Diagnosis Stroke Cerebrovascular Accident Personal History- Primary Stroke (HCC) documented in this encounter Additional Health Concerns Assessment Noted Time PHQ-9 Depression Total Score: 1 01/27/20 24 8:21 AM CDT documented as of this encounter Care Teams Supervisor Mending Relationship Specialty Start Date End Date Elsewhere, Pcp PCP - General Family Medicine 06/04/21 documented as of this encounter
--- OUTSIDE RECORDS SUMMARY | 2024-02-26 15:57 | XMS_ITS | Continuity of Care Document ---
Author Organization [facility] Address [address] [address] [place] [address] Phone Care Team Providers Care Pre Coder Name Role Phone Jaydon Fuentes MD Unavailable [...] Provider Providers Copied on Encounter Offic/outpt E&m [facility] Karin [facility], [address] [address], [place], [place], [id number], [place] tel:[phone] [facility] GI Symptoms or Concerns (chief complaint) CoughHeartburnNausea [address]. [address] [facility], [place], [place], [id number] , [place]. tel:[phone] Referring Provider: Ofelia Vázquez PAC, [address] [facility], [place], [address] . tel:[phone] Family History Family Member Type Diagnosis Age At Onset Son Problem (finding) GERD Son Problem (finding) cancer of colon Payers Payer name Insurance type Covered green party ID Jonas robertson(s) Blue Cross [place] [employer] [place] [id number] Social History Type Description Quantity Date Captured [...] in about [address] Simpson in [place] for heartburn symptoms. She thinks that there [...] had th e pleasure of seeing Latonya Cut Out Operator today in clinic along with her for [...] in about [address] Simpson in [place] for heartburn symptoms. She thinks that there [...] that time.She is planning a trip to [place] for 2 weeks starting in about 2 [...]
--- OUTSIDE RECORDS SUMMARY | 2024-02-26 15:57 | XMS_ITS ---
Author Organization [facility] Address [address] [place] [address] Care Team Providers Care Daycare Provider Name Role Phone Unavailable Unavailable Unavailable Surgery Details Not on file Complications Check Surgery Details section. Procedure Estimated Blood Loss Check Surgery Details section. Procedure Findings Check Surgery Details section. Procedure Specimens Taken Check Surgery Details section.
--- OUTSIDE RECORDS SUMMARY | 2024-02-26 15:57 | XMS_ITS | Clinical Summary ---
Author Organization [facility] Address [address] [place] [address] Care Team Providers Care Contract Implementation Analyst Name Role Phone Elsewhere, Pcp Primary Care Provider Unavailabl e Source Comments Patient records contain information from all sites at [facility]. For routine questions regarding patient records, call [phone] during business hours, M-F 8:00 AM - 5:00 PM Central Time. Record requests for emergency care only can be directed to [phone] at any time.[facility] Allergies Active Allergy Reactions Criticality Noted [...] Overview: Added automatically from request for surgery [id number] Fibromyalgia 05/17/2021 Primary Generalized Osteoarthritis 05/17/2021 Arthroplasty [...] Department of Physical Medicine and Rehabilitation in [address] [address] Xiomara Clemens D.O. Nelli Reyes, CRISSY WINN, M.S. Stroke Cerebrovascular Accident Personal History (Primary Dx); Stroke (HCC) Discharge Disposition: Home or Self Care 01/27/2024 8:30 AM CDT Comprehensive Visit Department of Neurology in [place], [place] [address] [place] [address] Ritchie Cosby M.D. Flemming, Kelly D, M.D. Stroke Cerebrovascular Accident Personal History (Primary Dx); Stroke (HCC) 12/28/2023 Clinical Communication Department of Neurology in [place], [place] [address] [place] [address] Ritchie Cosby M.D. Remote Patient Monitoring (Connectivity Notification: Disconnected Monitor) 12/25/2023 1:18 PM CDT - 01/01/2024 1:08 PM CDT Hospital Encounter [facility], [facility], Fourth Floor [address] [place] [id number] Justin Melendez D.O., M.S. Elizabeth Doss M.D. Arian Ruiz M.D. Mary Fuller M.D. Stroke (HCC) [I63.9] (Primary Dx); Lack Of Coordination [R27.9]; Stroke (HCC); Weakness Muscle Discharge Disposition: Home or Self Care 12/25/2023 11:20 AM CDT - 12/25/2023 1:17 PM CDT Hospital Encounter Division of Cardiovascular Diseases in [place], [place] [address] [place] [address] Ritchie Cosby M.D. Discharge Disposition: Home or Self Care 12/22/2023 4:55 AM CDT - 12/25/2023 1:11 PM CDT Hospital Encounter [facility], [facility], Second floor [address] [place] [address] Apolinar Parrish M.D., M.Batool. Rolando Glynn M.D. Queta Quinn M.D. Rosalina Holly, TATUM, C.N.P. Stroke (HCC) (Primary Dx); Abnormal Gait Non Orthopedic [R26.89]; Lack Of Coordination [R27.9]; Abnormal Posture [R29.3] Discharge Disposition: Rehab Facility from Last 3 Months Immunizations Name Administration [...] 0.6 oz pur e alcohol) Daily caffeine [facility] Livescribe[employer] Answer Date Recorded In the past 12 months has Ensyn, gas, oil, or water [employer] threatened to shut off services in your [...] week 09/27/2022 How often do you attend [facility]? More than 4 times per year 09/27/2022 Do you belong to any clubs o r organizations such as mosque groups, unions, [employer] or athletic groups, or school groups? Yes [...] Answer Date Recorded PHQ-2 Score 0 01/27/2024 [facility] - Occupational Stress Questionnaire Answer Date Recorded [...] your living situation today? I have a [facility] place to live 01/23/2024 Education Answer Date Recorded What is the highest level of school you have completed or the highest degree you have received? Associate degree: occupational, technical, or vocational program 09/27/2022 Sex and Gender Information Value Date Recorded Sex Assigned at Female 06/28/2018 10:53 AM QUILL REAMER Gender Identity Female 06/28/2018 10:53 AM QUILL REAMER Sexual Orientation Straight 06/28/2018 10 :53 AM QUILL REAMER Last Filed Vital Signs Vital Sign Reading [...] PM CDT Education Department of Neurology in [place], [place] [address] [place] [address] Queta Quinn M.D. [address] [place] [address] Health Maintenance Due Date Last Done Comments Fall Risk Screen (Annual) 08/10/2023 COVID-19 Vaccine (7 - 2022-2 4 season) 2023 05/14/2023, 05/14/2023, 05/30/2022, Additional history exists Office Visit for Blood Press ure Check / Re-check 04/28/2024 01/27/2024 Influenza Vaccine (#1) 2024 , 06/12/2022, 05/29/2021, Additional history exists Creatinine Level (Kidney Fun ction Test) 12/21/2024 12/22/2023, 12/17/2023, 03/05/2023, Additional history exists Potassium Level 12/21/2024 12/22/2023, 05/0 04/2024, 03/05/2023, Additional history exists Sodium Level 12/21/2024 12/22/2023, 05/0 04/2024, 03/05/2023, Additional history exists DTaP,Tdap,and Td Vaccines (4 - Td or Tdap) 04/23/2029 04/23/2019, 03/31/2007, 02/13/2006 Pneumococcal vaccine (65+ years) Completed 12/18/19 16, 05/02/2010 Zoster Vaccines Completed 06/13/2019, 02/09, 05/10/2013 Depression Screening (Annual PHQ-2) Completed 01/27/2024 Medical Devices Implanted Type Area Sausage Mixer Device Identifier Shelf Expiration Date Model / Serial / Lot Drsg Bilayer Matrix 5x5 - [id number] Implanted:Qty: 1 on 12/17/2021 by Brenda Mansfield D.O. at [facility] Bone or Tissue Left: Leg Integra 05/09/2023 [id number] / / [id number] Conversions - Default Historical Implant Device Implanted:05/05 (Quantity not on file) Hardware e.g. pins/screws /rods Right: Foot Description:Body Location - Foot R. Device Status Text - Hardware. screws. Clp Hrzn Ti 6 Clp Ruel - [id number] Implanted:Qty: 1 on 12/17/2021 by Brenda Mansfield D.O. at [facility] Hardware e.g. pins/screws /rods [employer] [id number] / / Clp Hrzn Ti 6 Clp Sm Red - [id number] Implanted:Qty: 1 on 12/17/2021 by Brenda Mansfield D.O. at [facility] Hardware e.g. pins/screws /rods [employer] [id number] / / Clp Hrzn Ti 6 Clp Sm Red - [id number] Implanted:Qty: 1 on 12/17/2021 by Brenda Mansfield D.O. at [facility] Hardware e.g. pins/screws /rods [employer] [id number] 07/21/2026 [id number] / / [id number] Clp Hrzn Ti 6 Clp Sm Red - [id number] Implanted:Qty: 1 on 12/17/2021 by Brenda Mansfield D.O. at [facility] Hardware e.g. pins/screws /rods [employer] [id number] 06/16/2026 / / [id number] Hip Implant- 0 Implanted:04/11 (Quantity not on file) Hip Implant Right: Hip Description:Implanted at [facility] Ocular Lens Ocular Lens Bilater al: Eye [...] In System IMG CT PROCEDURES IIMS NA * EVENT MONITOR - HOSPITAL HOOKUP AT DISCHARGE (01/20/2024 1:19 AM CDT) 12/25/2023 11:3 6 AM CDT Narrative PITER MCKEON - 01/23/2024 12:29 PM CDT 1. The [...] patient did not report any symptomatic events. Undercutter Operator: AUNG Sheffield / AUNG Lam Procedure Note Jaime Diop M.D. - 01/23/2024 1. The patient was monitored from 12/25/2023 to 01/20/2024. The patient'sbaseline rhythm was sinus with a varying P-wave morphology. 2. PVCs were seen singly. There were 5 runs of ventricular tachycardiaobserved. The longest run of VT was 9 beats. The maximum rate of VT euu324 bpm. 3. PACs were seen singly and in pairs. There were 22 runs ofsupraventricular tachycardia observed. The longest run of SVT was 17beats. The maximum rate of SVT was 187 bpm. 4. The patient did not report any symptomatic events. Undercutter Operator: AUNG Sheffield / AUNG Lam Ritchie Cosby M.D. CV CARDIAC SERVICES PROCEDURES PITER MCKEON NA * (GERA) 2D WITH COLOR, LIMITED DOPPLER AND CONTRAST (12/23/2023 9:11 AM CDT) Ejection Fraction 60 MC CV EIMS Mid-Ascending Aorta 30 CV EIMS Anatomical Region Laterality Modality Echocardiography 12/23/2023 8:01 [...] and the findings as documented in the duplicating machine operator and also performed a pertinent examination including [...] performed at the request of the primary dining service worker. Adult probe inserted without difficulty. LEFT VENTRICLE:Normal [...] administration of sedation and during sedation. No hgfcb-io-ehqf shunt at atrial level at rest or [...] Sedation Narrator or other pertinent record in [facility] for additional procedure and sedation information. Physician [...] and the findings as documented in the duplicating machine operator and alsoperformed a pertinent examination including a heart, airway and lungassessment. Mallampati Assessment: As documented in the RN pre-procedureassessment. Sedation plan: Transesophageal echo - moderate sedation. ASAphysical status score: Class III. The patient's identity and all neededequipment were confirmed and a final confirmatory pause was performed bythe team immediately prior to start. PROCEDURAL ECHO FINDINGS:Transesophageal echocardiogram performed at the request of the primaryservice resourcing consultant. Adult probe inserted without difficulty. LEFT [...] toadministration of sedation and during sedation. No wcykl-kd-fmri shunt atatrial level at rest or with [...] CDT) Ventricular Rate ECG/Min 77 BPM MUSE UT Interval 160 ms MUSE QRSD Interval 82 ms MUSE QT Interval 372 ms MUSE QTC Interval 420 ms MUSE P [place] 61 degrees MUSE R [place] 61 degrees MUSE T Wave [place] 54 degrees MUSE 12/22/2023 3:14 PM CDT [...] M.D. LAB BLOOD ADD-ON Performing Organization Address City/[facility]/ZIP Co de Phone Number [facility] [place] [address] [place], [place] [id number] [place] [address] [place] [address] * S-TSH (Thyroid-Stimulating Hormone - Sensitive) (12/22/2023 11:44 AM CDT) TSH, Sensitive 3.1 0.3 - 4.2 mIU/L 12/22/2023 1:33 PM CDT DTL Blood (Blood, Venous) 12/22/2023 11:44 AM CDT 12/22/2023 1:04 PM CDT Ritchie Cosby M.D. LAB BLOOD ADD-ON [facility] [place] [address] [place], [place] [id number] [place] [address] [facility] [address] [place] [address] * (ABNORMAL) Hemoglobin A1c (12/22/2023 11:44 AM CDT) Hemoglobin A1c, B 5.7(H) 4.0 - 5.6 % 12/22/2023 1:25 PM CDT DTL Comment: Hemoglobin A1c values of 5.7-6.4 percent indicate an increased risk for developing diabetes mellitus. In diabetic patients, HbA1c goals should be discussed with healthcare provider. Blood (Blood, Venous) 12/22/2023 11:44 AM CDT 12/22/2023 12:50 PM CDT Ritchie Cosby M.D. LAB BLOOD ADD-ON [facility] [place] [address] [place] [address], [facility] DTL [facility] [address] [place] [address] * MR Neck Angiogram without and with [...] the cervical andintracranial arteries as described. Jackie Good M.D. [facility] MRI PROCEDURES * MR Brain without and with IV Contrast (12/22/2023 9:40 AM CDT) Anatomical Region Laterality Modality Head, Brain, Neuroradiology RST LOS, Neuroradiology [facility], Neuroradiology FLA LOS N/A Magnetic Resonance Impressions [...] andintracranial arteries as described. Rosalina Holly APRN CMarthaNMarthaP. IMG MRI P ROCEDURES * CBC with Differential, Blood (12/22/2023 5:48 AM CDT) Hemoglobin 13.4 11.6 - 15.0 g/dL 12/22/2023 [...] CDT Mee Ruiz M.D. LAB BLOOD ADD-ON [facility] [place] [address] [place], [place] [address] STMA [facility] [address] [place] [address] DHPM [facility] [address] [place] [address] * Phosphorus Inorganic (12/22/2023 5:48 AM CDT) Phosphorus (Inorganic), S 3.6 2.5 - 4.5 mg/dL 12/22/2023 6:24 AM CDT DTL Blood (Blood, Venous) 12/22/2023 5:48 AM CDT 12/22/2023 6:10 AM CDT Mee Ruiz M.D. LAB BLOOD ADD-ON Performing Organization Address City/[facility]/ZIP Co de Phone Number [facility] [place] [address] [place], [place] [address] [address] [place] [address] * Magnesium (12/22/2023 5:48 AM CDT) Magnesium, S 2.2 1.7 - 2.3 mg/dL 12/22/2023 6:24 AM CDT DTL Blood (Blood, Venous) 12/22/2023 5:48 AM CDT 12/22/2023 6:10 AM CDT Mee Ruiz M.D. LAB BLOOD ADD-ON [facility] [place] [address] [place], [place] [address] [address] [place] [address] * Basic Metabolic Panel (12/22/2023 5:48 AM [...] CDT Mee Ruiz M.D. LAB BLOOD ADD-ON [facility] [place] [address] [place] [address], [facility] [address] [place] [address] * CT ANGIO HEAD NECK CAROTID STROKE [...] Advance Directives For more information, please contact: [phone] * Full Code (Latest Code Status on [...] Due to: Not medically appropriate Care Teams Contract Implementation Analyst Relationship Specialty Start Date End Date Elsewhere, Pcp PCP - General Family Medicine 06/04/21
--- OUTSIDE RECORDS SUMMARY | 2024-02-26 15:58 | XMS_ITS | Clinical Summary ---
Author Organization [email or web address] Address [place], [place] [address] Care Team Providers Care News Assignment Editor Name Role Phone Vaishali Baeza MD Primary Care Provide r Lukas Feliz MD Unavailable Waldo Bethea MD Unavailable Isha Gamble Unavailable Isiah Price MD Unavailable Allergies Active Allergy Reactions Criticality Noted Date [...] albuterol HFA (PRO-AIR; VENTOLIN; PROVENTIL) 90 mcg/actuation inhalerIndications :Bronchitis Inhale 1-2 Puffs by mouth every 4 hours if needed (cough or shortness of breath). 1 Each 5 07/24/2022 Active estradioL (Yuvafem) 10 mcg tab vaginal tabletIndications: Vaginitis, atrophic,Bladder prolapse, female, acquired Insert 1 Tablet (10 mcg) into the vagina once daily. Three times per week 36 Tablet 3 03/05/2023 Active oxyCODONE (ROXICODONE) 5 mg immediate release tabletIndications: Cervical radiculopathy Take 1 Tablet (5 mg) by mouth at bedtime. 30 Tablet 11/26/2023 Active rosuvastatin (CRESTOR) 20 mg tabletIndications: Cerebrovascular accident (CVA) due to thrombosis of cerebral artery (HC) Take 1 Tablet (20 mg) by mouth at bedtime. 11/26/2023 Active pregabalin (LYRICA) 50 mg capsuleIndications :Cervical spinal stenosis Take 1 Capsule (50 mg) by mouth two times daily. 30 Capsule 1 12/04/2023 Active hydrOXYzine HCL (ATARAX) 25 mg tablet Take 25 mg by mouth every 8 hours if needed for Anxiety. 12/29/2023 Active losartan (COZAAR) 50 mg tabletIndications: HTN (hypertension) Take 1 Tablet (50 mg) by mouth once daily. 90 Tablet 3 01/07/2024 Active oxyCODONE (ROXICODONE) 5 mg immediate release tabletIndications: Spinal stenosis of lumbar region with neurogenic claudication Take 1 Tablet (5 mg) by mouth 2 times daily if needed for Pain. Separate from tramadol trial 24 Tablet 01/15/2024 Active Brilinta 90 mg tabletIndications: Cerebrovascular accident (CVA), unspecified mechanism (HC) Take 1 Tablet (90 mg) by mouth two times daily. 120 Tablet 3 02/09/2024 Active aspirin (ECOTRIN) 81 mg enteric coated tabletIndications: Stenosis of left carotid artery Take 1 Tablet (81 mg) by mouth once daily with a meal. 0 03/24/2023 02/09/20 24 Discontinu ed(*Patien t states no longer taking) Brilinta 90 mg tabletIndications: Cerebrovascular accident (CVA), unspecified mechanism (HC) Take 1 Tablet (90 mg) by mouth two times daily. 20 Tablet 01/22/2024 02/04/20 24 Discontinu ed(Reorder (E-cancel not sent)) Brilinta 90 mg tabletIndications: Cerebrovascular accident (CVA), unspecified mechanism (HC) Take 1 Tablet (90 mg) by mouth two times daily. 90 Tablet 3 02/04/2024 02/09/20 24 Discontinu ed(Reorder (E-cancel not sent)) Active Problems Problem Noted Date Diagnosed Date Atherosclerosis of aorta 01/07/2024 Cerebrovascular accident (CV A) due to thrombosis of cerebral artery 11/26/2023 Malignant melanoma of skin of lower extremity Overview: Added automatically from request for surgery [id number] Retinal detachment with retinal defect 1 Overview: [...] Encounters Date Type Department Care Team Description 02/25/2024 Refill [facility] [address] [place] [address] Vaishali Baeza MD Refill Request (Yuvafem) 02/09/2024 1:00 PM CDT Office Visit [facility] [address] [place] [address] Vaishali Baeza MD Neurologic Problem (CVA follow up/Fell and hurt her tailbone. Still has some pain. Using a cushion. Has been improving./Discuss circulation in foot./Discuss Brilinta /Pregabalin started a few days ago, did make her loopy, not sure about taking it during the day/diclofenac (VOLTAREN) 75 mg delayed-release tablet, [facility] doctor chiki she could take once a week as aneeded) 02/09/2024 Travel 02/04/2024 Refill [facility] [address] [place] [address] Vaishali Baeza MD Refill Request (Brilinta) 01/26/2024 12:30 PM CDT Ancillary Procedure [facility] [address] [place] [address] 01/26/2024 12:00 PM CDT Office Visit [facility] [address] [place] [address] Ofelia Vázquez PA Concerns (Tailbone) 01/26/2024 10:00 AM CDT - 01/26/2024 11:59 PM CDT Hospital Encounter [facility] [address] [place] [address] Vaishali Baeza MD Atherosclerosis of aorta (HC) 01/26/2024 Travel 01/26/2024 Nurse Triage [facility] [address] [place] [address] Vaishali Baeza MD Fall 01/19/2024 2:15 PM CDT Office Visit [facility] [address] [place] [address] Vaishali Baeza MD Follow Up (CVA Had outpatient neuro evaluation on 01/07, scanned in chart./Doing well. Has a few questions.) 01/19/2024 Travel 01/15/2024 8:40 AM CDT Office Visit [facility] [address] [place] [address] Waldo Bethea MD Musculoskeletal Problem (Neck and Back pain. has had two strokes since she has made this appointment but still feeling pain in both neck and back ) 01/15/2024 Travel 01/07/2024 9:05 AM CDT Office Visit [facility] [address] [place] [address] Vaishali Baeza MD Hospital F/U (Stroke 12/22/23) 01/07/2024 Travel 12/18/2023 Telephone [facility] [address] [place] [address] Vaishali Baeza MD Follow Up 12/17/2023 4:49 PM CDT - 12/17/2023 8:35 PM CDT Emergency [facility] [address] [place] [address] Reji Collier MD Numbness and tingling (Primary Dx); History of CVA (cerebrovascular accident) Discharge Disposition: Home Self Care 12/17/2023 Travel 12/17/2023 Telephone [facility] [address] [place] [address] Vaishali Baeza MD Questions (Questions) 12/08/2023 2:22 PM CDT - 12/08/2023 11:59 PM CDT Hospital Encounter [facility] [address] [place] [address] Vaishali Baeza MD Acute cerebrovascular accident (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 (HC) 12/08/2023 Travel 12/07/2023 Telephone [facility] [address] [place] [address] Vaishali Baeza MD Follow Up ([facility] Referral) 12/04/2023 Telephone [facility] [address] [place] [address] Vaishali Baeza MD Questions (MRI coverage pending denial by Insurance) 12/01/2023 3:30 PM CDT Office Visit [facility] [address] [place] [address] Vaishali Baeza MD Follow Up (MRI results/Brought Zio patch with to have placed) 12/01/2023 Travel 11/30/2023 Orders Only [facility] Scanner 1 scan: (1-Ord) INCOMING RECORDS-MRI, [facility], 11/30/2023 11/30/2023 Orders Only [facility] Scanner 1 scan: (1-Ord) INCOMING RECORDS-MRI, [facility], 11/30/2023 11/30/2023 Telephone [facility] [address] [facility] [place] [address] Vaishali Baeza MD ORDERS 11/28/2023 Orders Only [facility] Scanner 1 scan: (1-Ord) [facility], MR CERVICAL SPINE WO CON, 11/28/2023 11/27/2023 Orders Only [facility] Scanner 1 scan: (1-Ord) [facility], BRAIN, 11/27/2023 11/27/2023 Telephone [facility] [address] [place] [address] Vaishali Baeza MD Imaging (MRI results) from Last 3 Months Immunizations Name Administration [...] History Relation Name Comments Heart Disease Father ND Other Mother Alzheimers Other Sister 3 fibromyalgia, h yperlipidemia Hypertension Sister 4 Diabetes Sister 5 Cancer-colon Son Cancer-breast No Family History Cancer-ovarian No Family History Relation Name Status Comments Father Mother Sister 1 Alive Sister 2 Alive Sister 3 Sister 4 Sister 5 Son Social History Tobacco Use Types Packs/Day Years Used Date Smoking Tobacco: Never Smokeless Tobacco: Never Tobacco Cessation:Counseling Given: No Alcohol Use Standard Drinks/Week Comments Yes 7 [...] Assigned at Female 08/03/2020 9:53 AM SENIOR TREASURY CONSULTANT Gender Identity Female 08/03/2020 9:53 AM SENIOR TREASURY CONSULTANT Sexual Orientation Not on file Obstetrics History Para Term AB IAB SAB Ectopic Multiple Livin g Live Births 3 3 2 1 3 3 Date Outcome GA Total Labor Labor/2nd/3rd Weight Sex Type Anes PTL Roseanna A1 A5 Name Clin 1963 Term 4h 00m 3.23 kg (7 lb 2 oz) M Vag Living Rebel 1965 Term 6h 00m 3.18 kg (7 lb) M Vag Living Jacques 1968 1.87 kg (4 lb 2 oz) M Vag Living Frank Last Filed Vital Signs Vital Sign Reading Time Taken Comments Blood Pressure 116/74 02/09/2024 1:27 PM CDT Pulse 74 02/09/2024 1:27 PM CDT Temperature 35.8 ??C (96.5 ??F) 01/15/2024 9:01 AM CD T Respiratory Rate 18 12/17/2023 4:57 PM CDT Oxygen Saturation 94% 02/09/2024 1:27 PM CDT Inhaled Oxygen Concentration - - Weight 69.4 kg (153 lb) 02/09/2024 1:27 PM CDT Height 154.9 cm (5' 1) 12/17/2023 4:57 PM CDT Body Mass Index 28.91 12/17/2023 4:57 PM CDT Plan of Treatment Upcoming Encounters Date Type Department Care Team (Late st Contact Info) Description 03/08/2024 1:50 PM CDT Office Visit [facility] [address] [place] [address] Vaishali Baeza MD [address] [place] [address] 03/14/2024 10:20 AM CDT Office Visit [facility] [address] [place] [address] Waldo Bethea MD [address] [place] [address] Health Maintenance Due Date Last Done Comments BMI (ht and wt on same day) for age 18+ 03/05/2024 03/05/2023, 03/04/2022, 04/30/2021, Additional history exists Depression screening for age 12+ 03/05/2024 03/05/2023, 03/04/2022, 02/28/2021, Additional history exists Medicare Wellness for age 65+ 03/05/2024 03/05/2023, 03/04/2022, 02/26/2021, Additional history exists Influenza for age 65+ 04/10/2024 05/22/2023 , 06/12/2022, 05/29/2021, Additional history exists COVID-19 vaccine series ( season) 2024 05/14/2023, 05/14/2023, 05/14/2023, Additional history exists Postponed from 07/09/2023 (Other) Tetanus booster 04/23/2029 04/23/2019, 03/11, 02/13/2006 Pneumococcal series for age 65+ Completed 12/18/2015, 05/02/2010 DEXA/DXA scan for age 65+ Completed 2018, 03/18/2016, 04/19/2013 Tdap Completed 04/23/2019, 02/13/2006 Zoster (shingles) series for age 50+ Completed 06/13/2019, 03/09/2019, 05/10/2013 Procedures Procedure Name Priority Date/Time Associated Diagnosis Comments XR SACRUM AND COCCYX MINIMUM 2 VIEWS Routine 01/26/2024 12:37 PM CDT Injury of coccyx, initial encounter CTA CHEST ABDOMEN PELVIS AORTIC DISSECTION W Routine 01/26/2024 10:31 AM CDT Atherosclerosis of aorta (HC) EXTENDED HOLTER Routine 12/24/2023 Cerebrovascular accident (CVA) due to thrombosis of cerebral artery (HC) CT ANGIO HEAD NECK CAROTID STROKE PROTOCOL IZAIAH CANDIDAT STAT 12/17/2023 5:[address] HEAD STROKE PROTOCOL WITHOUT CONTRAST STAT 12/17/2023 5:23 PM CDT CBC WITH AUTO DIFFERENTIAL STAT 12/17/2023 5:00 PM CDT BASIC METABOLIC PANEL STAT 12/17/2023 5:00 PM CDT PROTIME-INR STAT 12/17/2023 5:00 PM CDT CBC WITH AUTO DIFFERENTIAL STAT 12/17/2023 5:00 PM CDT GLUCOSE METER Routine 12/17/2023 4:[address] CARDIAC CALCIUM SCORE ONLY WO SINGLE READ Routine 12/08/2023 2:41 PM CDT Acute cerebrovascular accident (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 (HC) SCAN CORRESP-IMAGING 11/30/2023 12:00 AM CDT SCAN CORRESP-IMAGING 11/30/2023 12:00 AM CDT SCAN-MRI INTERPRETATION 11/28/2023 12:00 AM CDT SCAN-MRI INTERPRETATION 11/27/2023 12:00 AM CDT XR DXA BONE DENSITY 2 SITES AXIAL Routine 04/05/2019 11:28 AM CDT Menopause from Last 3 Months or Most Recently Relevant to Health Maintenance Results * XR SACRUM AND COCCYX MINIMUM 2 VIEWS (01/26/2024 12:37 PM CDT) Anatomical Region Laterality Modality Pelvis, SACRUM, COCCYX Computed Radiography 01/27/2024 8:59 AM CDT Narrative 01/27/2024 8:59 AM CDT For Patients: ??As a result of the Century Cures Act, medical imaging exams and procedure reports are released immediately into your electronic medical record. ??You may view this report before your referring provider. ??If you have questions, please contact your health care provider. Indication: Coccygeal injury Technique: Three views sacrum and coccyx Comparison: CT earlier same day Findings: Residual contrast in the bladder. Right hip replacement hardware intact. Normal sacrococcygeal alignment. Vascular calcifications. Degenerative facet arthropathy lower lumbar spine. Impression: No coccygeal fracture. Dictated by Sea Hale MD @ 01/27/2024 8:59:50 AM (Electronically Signed) Procedure Note Sea Hale MD - 01/27/2024 For Patients: As a result of the Cures Act, medical imagingexams and procedure reports are released immediately into your electronicmedical record. You may view this report before your referring provider.If you have questions, please contact your health care provider. Indication: Coccygeal injury Technique: Three views sacrum and coccyx Comparison: CT earlier same day Findings: Residual contrast in the bladder. Right hip replacement hardware intact.Normal sacrococcygeal alignment. Vascular calcifications. Degenerativefacet arthropathy lower lumbar spine. Impression: No coccygeal fracture. Dictated by Sea Hale MD @ 01/27/2024 8:59:50 AM (Electronically Signed) [facility] * CTA CHEST ABDOMEN PELVIS AORTIC DISSECTION W (01/26/2024 10:31 AM CDT) Anatomical Region Laterality Modality CHEST, Abdomen, Pelvis, AORTA, THORAX, HEART Computed Tomography 01/26/2024 1:49 PM CDT Impressions 01/26/2024 1:49 PM CDT 1. Scattered aortic atherosclerotic disease. Aorta otherwise normal in caliber without evidence of aneurysm or dissection. Please note that all CT scans at this facility use dose modulation, iterative reconstruction, and/or weight-based dosing when appropriate to reduce radiation dose to as low as reasonably achievable. Dictated by Nathaniel Lewis MD @ 01/26/2024 1:49:34 PM (Electronically Signed) Narrative 01/26/2024 1:49 PM CDT For Patients: ??As a result of the Cures Act, medical imaging exams and procedure reports are released immediately into your electronic medical record. ??You may view this report before your referring provider. ??If you have questions, please contact your health care provider. CLINICAL INFORMATION: Aortic atherosclerosis. TECHNIQUE: Noncontrast and arterial phase CT angiogram of the chest, abdomen and pelvis were obtained. No enteric contrast was administered and therefore the study has decreased sensitivity for detection of bowel pathology. ?? 3D and/or MIP angiographic reconstructions were performed on a separate independent workstation with concurrent supervision of the image post processing in order to further delineate the angiographic anatomy for accurate interpretation. Contrast: 100 mL of Omnipaque 350 intravenous contrast was injected uneventfully prior to image acquisition. Radiation Dose Estimate (Total Exam DLP): 1802 mGy-cm. COMPARISON: Cardiac CT 12/08/2023. FINDINGS: CT Angiography Findings: Aorta: Scattered atherosclerotic disease. Ascending thoracic aorta is normal in caliber without evidence of aneurysm or dissection. Aorta measures 3.3 cm at the root, 2.7 cm at the level of the main pulmonary artery, and 2.8 cm in the proximal descending portion. Great Vessels: Patent. Celiac axis: Patent. Superior mesenteric artery: Patent. Inferior mesenteric artery: Patent. LEFT Renal: Patent. RIGHT Renal: Patent. RIGHT lower extremity : Common iliac artery: Patent. ? Internal iliac artery: Patent. External iliac artery: Patent. Common femoral artery: Patent. LEFT lower extremity: Common iliac artery: Patent. ? Internal iliac artery: Patent. External iliac artery: Patent. Common femoral artery: Patent. Visceral Findings: Chest: Thyroid: Left thyroid lobe is not visualized and may be absent. 6 mm hypoattenuated right thyroid nodule. Lungs: Lung parenchyma demonstrates a mosaic pattern of attenuation which may reflect small vessel/airway disease. Heart/Pericardium: Unremarkable. ? Lymph Nodes: No significant axillary, mediastinal, or hilar lymphadenopathy. Abdomen/Pelvis: Liver: Noncirrhotic morphology. Stable left hepatic lobe cysts. Gallbladder: Unremarkable. Spleen: Unremarkable. Adrenal glands: Unremarkable. Kidneys: Enhance symmetrically without hydronephrosis. Pancreas: Unremarkable. Lymph nodes: No retroperitoneal, mesenteric, inguinal, or pelvic adenopathy by CT criteria. ?? Bowel: Evaluation is limited without enteric contrast. Grossly unremarkable. Urinary bladder: Limited evaluation due to underdistention. No gross pathology. Reproductive structures: Status post hysterectomy. Status post right hip arthroplasty. Visualized osseous structures demonstrate diffuse degenerative changes. Musculoskeletal: Visualized osseous structures demonstrate diffuse degenerative changes. ? Procedure Note Nathaniel Lewis MD - 01/26/2024 For Patients: As a result of the Cures Act, medical imagingexams and procedure reports are released immediately into your electronicmedical record. You may view this report before your referring provider.If you have questions, please contact your health care provider. CLINICAL INFORMATION: Aortic atherosclerosis. TECHNIQUE: Noncontrast and arterial phase CT angiogram of the chest, abdomen andpelvis were obtained. No enteric contrast was administered and thereforethe study has decreased sensitivity for detection of bowel pathology. 3D and/or MIP angiographic reconstructions were performed on a separateindependent workstation with concurrent supervision of the image postprocessing in order to further delineate the angiographic anatomy foraccurate interpretation. Contrast: 100 mL of Omnipaque 350 intravenous contrast was injecteduneventfully prior to image acquisition. Radiation Dose Estimate (Total Exam DLP): 1802 mGy-cm. COMPARISON: Cardiac CT 12/08/2023. FINDINGS: CT Angiography Findings: Aorta: Scattered atherosclerotic disease. Ascending thoracic aorta isnormal in caliber without evidence of aneurysm or dissection. Aortameasures 3.3 cm at the root, 2.7 cm at the level of the main pulmonaryartery, and 2.8 cm in the proximal descending portion. Great Vessels: Patent. Celiac axis: Patent. Superior mesenteric artery: Patent. Inferior mesenteric artery: Patent. LEFT Renal: Patent. RIGHT Renal: Patent. RIGHT lower extremity : Common iliac artery: Patent. Internal iliac artery: Patent. External iliac artery: Patent. Common femoral artery: Patent. LEFT lower extremity: Common iliac artery: Patent. Internal iliac artery: Patent. External iliac artery: Patent. Common femoral artery: Patent. Visceral Findings: Chest: Thyroid: Left thyroid lobe is not visualized and may be absent. 6 mmhypoattenuated right thyroid nodule. Lungs: Lung parenchyma demonstrates a mosaic pattern of attenuation whichmay reflect small vessel/airway disease. Heart/Pericardium: Unremarkable. Lymph Nodes: No significant axillary, mediastinal, or hilarlymphadenopathy. Abdomen/Pelvis: Liver: Noncirrhotic morphology. Stable left hepatic lobe cysts. Gallbladder: Unremarkable. Spleen: Unremarkable. Adrenal glands: Unremarkable. Kidneys: Enhance symmetrically without hydronephrosis. Pancreas: Unremarkable. Lymph nodes: No retroperitoneal, mesenteric, inguinal, or pelvicadenopathy by CT criteria. Bowel: Evaluation is limited without enteric contrast. Grosslyunremarkable. Urinary bladder: Limited evaluation due to underdistention. No grosspathology. Reproductive structures: Status post hysterectomy. Status post right hip arthroplasty. Visualized osseous structuresdemonstrate diffuse degenerative changes. Musculoskeletal: Visualized osseous structures demonstrate diffuse degenerative changes. IMPRESSION: 1. Scattered aortic atherosclerotic disease. Aorta otherwise normal incaliber without evidence of aneurysm or dissection. Please note that all CT scans at this facility use dose modulation,iterative reconstruction, and/or weight-based dosing when appropriate toreduce radiation dose to as low as reasonably achievable. Dictated by Nathaniel Lewis MD @ 01/26/2024 1:49:34 PM (Electronically Signed) Vaishali Baeza MD CT * EXTENDED HOLTER (12/24/2023) Vaishali Baeza MD CARDIAC SERVI EMILE ORD * CT ANGIO HEAD NECK CAROTID STROKE PROTOCOL IZAIAH CANDIDAT (12/17/2023 5:25 PM CDT) Anatomical Region Laterality Modality BRAIN, NECK Computed Tomogra phy 12/17/2023 5:50 PM CDT Addenda Addendum by Carmelo Gan MD on 12/18/2023 9:49 AM CDT For Patients: ??As a result of the Cures Act, medical imaging exams and procedure reports are released immediately into your electronic medical record. ??You may view this report before your referring provider. ?? If you have questions, please contact your health care provider. CLINICAL HISTORY: Acute neurological deficit. TECHNIQUE: Standard helical CT image acquisition through the head following the administration of intravenous contrast was performed. 3D and MIP reconstructions were performed at a separate workstation and permanently archived. COMPARISON: None available. FINDINGS: No intracranial proximal large vessel occlusion. Intracranial atherosclerotic disease, noting mild stenosis of the M1 segment of the left MCA, moderate to severe stenosis of the P1 segment of the right posterior cerebral artery, and multifocal mild stenoses of the P2 segment of the left posterior cerebral artery. No evidence of cerebral aneurysm. No findings to suggest an arterial-venous shunting lesion. The major dural venous sinuses and deep venous system are patent. IMPRESSION: Intracranial atherosclerotic disease, as above, most notably with moderate to severe stenosis of the P1 segment of the right posterior cerebral artery. Please note that all CT scans at this facility use dose modulation, iterative reconstruction, and/or weight-based dosing when appropriate to reduce radiation dose to as low as reasonably achievable. Dictated by Carmelo Gan MD @ 12/18/2023 9:49:39 AM (Electronically Signed) Impressions 12/18/2023 9:44 AM CDT 1. Mild (<50%) atherosclerotic stenosis of the proximal right ICA by NASCET criteria. 2. Moderate stenosis at the origin of the right vertebral artery. Please note that all CT scans at this facility use dose modulation, iterative reconstruction, and/or weight-based dosing when appropriate to reduce radiation dose to as low as reasonably achievable. Dictated by Carmelo Gan MD @ 12/18/2023 9:44:57 AM (Electronically Signed) Narrative 12/18/2023 9:44 AM CDT For Patients: ??As a result of the Cures Act, medical imaging exams and procedure reports are released immediately into your electronic medical record. ??You may view this report before your referring provider. ??If you have questions, please contact your health care provider. CLINICAL HISTORY: Acute neurological deficit. TECHNIQUE: Standard helical CT image acquisition through the neck was performed after intravenous contrast bolus enhancement. 3D and MIP reconstructions were performed at a separate workstation and permanently archived. COMPARISON: None available. FINDINGS: The origins of the great vessels from the aortic arch are patent. ??The common carotid arteries are patent. Mild (<50%) atherosclerotic stenosis of the proximal right ICA by NASCET criteria. No significant stenosis of the proximal left ICA. The more distal cervical segments of the ICAs are patent. Moderate stenosis at the origin of the right vertebral artery. The origin of the left vertebral artery is patent. The cervical segments of the vertebral arteries are patent. Procedure Note Carmelo Gan MD - 12/18/2023 For Patients: As a result of the Cures Act, medical imagingexams and procedure reports are released immediately into your electronicmedical record. You may view this report before your referring provider.If you have questions, please contact your health care provider. CLINICAL HISTORY: Acute neurological deficit. TECHNIQUE: Standard helical CT image acquisition through the neck was performed afterintravenous contrast bolus enhancement. 3D and MIP reconstructions wereperformed at a separate workstation and permanently archived. COMPARISON: None available. FINDINGS: The origins of the great vessels from the aortic arch are patent. Thecommon carotid arteries are patent. Mild (<50%) atherosclerotic stenosisof the proximal right ICA by NASCET criteria. No significant stenosis ofthe proximal left ICA. The more distal cervical segments of the ICAs arepatent. Moderate stenosis at the origin of the right vertebral artery. Theorigin of the left vertebral artery is patent. The cervical segments ofthe vertebral arteries are patent. IMPRESSION: 1. Mild (<50%) atherosclerotic stenosis of the proximal right ICA byNASCET criteria. 2. Moderate stenosis at the origin of the right vertebral artery. Please note that all CT scans at this facility use dose modulation,iterative reconstruction, and/or weight-based dosing when appropriate toreduce radiation dose to as low as reasonably achievable. Dictated by Carmelo Gan MD @ 12/18/2023 9:44:57 AM (Electronically Signed) Reji Collier MD CT * CT HEAD STROKE PROTOCOL WITHOUT CONTRAST Thrombolytic Candidate (12/17/2023 5:23 PM CDT) Anatomical Region Laterality Modality BRAIN Computed Tomogra phy 12/17/2023 5:40 PM CDT Impressions 12/17/2023 5:40 PM CDT No acute hemorrhage or large territory infarct. 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 Please note that all CT scans at this facility use dose modulation, iterative reconstruction, and/or weight-based dosing when appropriate to reduce radiation dose to as low as reasonably achievable. Dictated by Dre Valenzuela MD @ 12/17/2023 5:40:43 PM (Electronically Signed) Narrative 12/17/2023 5:40 PM CDT For Patients: ??As a result of the 21st Century Cures Act, medical imaging exams and procedure reports are released immediately into your electronic medical record. ??You may view this report before your referring provider. ??If you have questions, please contact your health care provider. INDICATION: Neurologic dysfunction TECHNIQUE: CT of the head was performed without IV contrast. COMPARISON: , 11/24/2023 08/06/2020, 05/12/2007. FINDINGS: Parenchyma: No acute hemorrhage, infarction, or mass. Moderate scattered periventricular white matter hypoattenuation is nonspecific and is favored to represent chronic small vessel ischemic disease. ?? 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 Ventricles and extra-axial spaces: Appropriate for age. ?? Visualized paranasal sinuses: Clear. ?? Mastoid air cells: Sclerotic appearance of the left mastoid air cells. Bones: No focal abnormality. ?? Additional comment: Bilateral lens surgery. Procedure Note Carmelo Valenzuela MD - 12/17/2023 For Patients: As a result of the Cures Act, medical imagingexams and procedure reports are released immediately into your electronicmedical record. You may view this report before your referring provider.If you have questions, please contact your health care provider. INDICATION: Neurologic dysfunction TECHNIQUE: CT of the head was performed without IV contrast. COMPARISON: , 11/24/2023 08/06/2020, 05/12/2007. FINDINGS: Parenchyma: No acute hemorrhage, infarction, or mass. Moderate scattered periventricular white matter hypoattenuation isnonspecific and is favored to represent chronic small vessel ischemicdisease. 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 Ventricles and extra-axial spaces: Appropriate for age. Visualized paranasal sinuses: Clear. Mastoid air cells: Sclerotic appearance of the left mastoid air cells. Bones: No focal abnormality. Additional comment: Bilateral lens surgery. IMPRESSION: No acute hemorrhage or large territory infarct. 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 Please note that all CT scans at this facility use dose modulation,iterative reconstruction, and/or weight-based dosing when appropriate toreduce radiation dose to as low as reasonably achievable. Dictated by Dre Valenzuela MD @ 12/17/2023 5:40:43 PM (Electronically Signed) Reji Collier MD CT * (ABNORMAL) CBC WITH AUTO DIFFERENTIAL (12/17/2023 5:00 PM CDT) WHITE BLOOD COUNT 6.8 4.5 - 11.0 thou/cu mm 12/17/2023 5:07 PM CDT [facility] RED BLOOD COUNT 4.27 4.00 - 5.20 mil/cu mm 12/17/2023 5:07 PM CDT [facility] HEMOGLOBIN 13.1 12.0 - 16.0 g/dL 12/17/2023 5:07 PM [facility] HEMATOCRIT 41.2 33.0 - 51.0 % 12/17/2023 5:07 PM [facility] MCV 97 80 - 100 fL 12/17/2023 5:07 PM [facility] MCH 30.7 26.0 - 34.0 pg 12/17/2023 5:07 PM [facility] MCHC 31.8(L) 32.0 - 36.0 g/dL 12/17/2023 5:07 PM [facility] RDW 13.0 11.5 - 15.5 % 12/17/2023 5:07 PM [facility] PLATELET COUNT 279 140 - 440 thou/cu mm 12/17/2023 5:07 PM [facility] MPV 9.6 6.5 - 11.0 fL 12/17/2023 5:07 PM [facility] % NEUT 65.3 % 12/17/2023 5:07 PM [facility] % LYMPH 25.6 % 12/17/2023 5:07 PM [facility] % MONO 6.5 % 12/17/2023 5:07 PM [facility] % EOS 2.2 % 12/17/2023 5:07 PM [facility] % BASO 0.4 % 12/17/2023 5:07 PM [facility] ABSOLUTE NEUTROPHILS 4.4 1.7 - 7.0 thou/cu mm 12/17/2023 5:07 PM [facility] ABSOLUTE LYMPHOCYTES 1.7 0.9 - 2.9 thou/cu mm 12/17/2023 5:07 PM [facility] ABSOLUTE MONOCYTES 0.4 <0.9 thou/cu mm 12/17/2023 5:07 PM [facility] ABSOLUTE EOSINOPHILS 0.2 <0.5 thou/cu mm 12/17/2023 5:07 PM [facility] ABSOLUTE BASOPHILS 0.0 <0.3 thou/cu mm 12/17/2023 5:07 PM CDT [facility] Blood BLOOD SPECIMEN / Unknown Venipuncture / Unknown 12/17/2023 5:00 PM CDT 12/17/2023 5:03 PM CDT Reji Collier MD HEMATOLOGY Performing Organization Address [facility]/ZIP Co de Phone Number [facility] [address] [place] [address] * PROTIME- INR (12/17/2023 5:00 PM CDT) INR 1.0 <1.3 12/17/2023 5:11 PM CDT [facility] PROTIME 11.2 10.3 - 12.3 sec 12/17/2023 5:11 PM CDT [facility] Blood BLOOD SPECIMEN / Unknown Venipuncture / Unknown 12/17/2023 5:00 PM CDT 12/17/2023 5:03 PM CDT Narrative [facility] - 12/17/2023 5:11 PM CDT ?Therapeutic Range 2.0-3.0 for most anticoagulated patients 2.5-3.5 or 4.0 for high risk patients The INR is only used for patients on stable oral anticoagulant therapy. It makes no significant contribution to the diagnosis or treatment of patients whose Protime is prolonged for other reasons. INR results are increased when heparin levels exceed 1.0 U/mL, which corresponds to an aPTT >125 seconds if the patient is on UFH. Reji Collier MD HEMATOLOGY [facility] [address] [place] [address] * (ABNORMAL) BASIC METABOLIC PANEL (12/17/2023 5:00 PM CDT) SODIUM 141 136 - 145 mmol/L 12/17/2023 5:24 PM CDT [facility] POTASSIUM 4.3 3.5 - 5.1 mmol/L 12/17/2023 5:24 PM [facility] CHLORIDE 107 98 - 107 mmol/L 12/17/2023 5:24 PM [facility] CO2,TOTAL 25 22 - 29 mmol/L 12/17/2023 5:24 PM [facility] ANION GAP 9 5 - 18 12/17/2023 5:24 PM [facility] GLUCOSE 118(H) 70 - 99 mg/dL 12/17/2023 5:24 PM [facility] CALCIUM 9.7 8.8 - 10.2 mg/dL 12/17/2023 5:24 PM [facility] BUN 15 8 - 23 mg/dL 12/17/2023 5:24 PM [facility] CREATININE 0.81 0.50 - 0.90 mg/dL 12/17/2023 5:24 PM [facility] BUN/CREAT RATIO 19 10 - 20 5:24 PM [facility] eGFR 73(L) >90 mL/min/1.7 3m2 12/17/2023 5:24 PM [facility] Comment:As of 2021, eG FR is calculated by the CKD-EPI creatinine equation without race adjustment. ??eGFR can be influenced by muscle mass, exercise, and diet. ??The reported eGFR is an estimation only and is only applicable if the renal function is stable. Blood BLOOD SPECIMEN / Unknown Venipuncture / Unknown 12/17/2023 5:00 PM CDT 12/17/2023 5:03 PM CDT Reji Collier MD CHEMISTRY [facility] [address] [place] [address] * (ABNORMAL) GLUCOSE METER (12/17/2023 4:59 PM CDT) [facility] GLUCOSE METER 124(H) 65 - 100 mg/dL 12/17/2023 4:59 PM T [facility] Blood BLOOD SPECIMEN / Unknown 12/17/2023 4:59 PM CDT 12/17/2023 4:59 PM CDT Reji Collier MD CHEMISTRY [facility] [address] [place] [address] * CT CARDIAC CALCIUM SCORE ONLY WO SINGLE READ (12/08/2023 2:41 PM CDT) Anatomical Region Laterality Modality Computed Tomogra phy Narrative 12/09/2023 12:52 PM CDT Table formatting from the original result was not included. For Patients: As a result of the Cures Act, medical imaging exams and procedure reports are released immediately into your electronic medical record. ??You may view this report before your referring provider. ?? If you have questions, please contact your health care provider. CT CARDIAC CALCIUM SCORING, 12/08/2023 PATIENT HISTORY: ??CAD screening, high CAD risk, not treadmill candidate; New CVA, check for CAD REPORT: ??High-resolution, ECG-synchronized computed tomography of the heart with attention to the coronary arteries was performed using Siemens HeartView CT. Coronary calcification analyzed using Siemens calcium scoring software. These are the results of the evaluation: Artery Number of Lesions Volume Equiv. Mass Calcium Score LM 0 0.0 0.00 0.0 LAD 3 68.8 12.65 68.4 CX 0 0.0 0.00 0.0 RCA 0 0.0 0.00 0.0 TOTAL 3 68.8 12.65 68.4 Threshold: ??130 HU ??(102.7 mg/cm3 CaHA) *) Calibration factor: 0.790 mg/(HUcm3) CaHA The Computed Tomography of the coronary arteries detected coronary calcifications. ??According to the current state of knowledge (O'Carmen, Circulation 2000; 102:126), coronary calcifications are a marker for coronary atherosclerosis. ??The more calcium is detected, the higher is the likelihood for an obstructive coronary disease. ??However, there is no unique relationship between the amount of detected calcium and the extent or localization of this disease. ??The amount of calcium is closely correlated with the extent of coronary atherosclerosis, although the true plaque burden is underestimated. ??With a high amount of coronary calcium, a moderate to high risk of a cardiovascular event within the next 2 to 5 years can be assumed. ?? No Identifiable Calcification Minimal Identifiable Calcification Mild Calcification Moderate Calcification Significant Calcification 0 1-10 11-100 101-400 401 and above (Following Cuellar Clin Proc. 1999;74(3):243-252) ADDITIONAL FINDINGS: ??Noncontrast CT images of the chest were obtained in conjunction with calcium scoring. Lungs and pleural spaces: Linear scarring in the right middle lobe. No pleural effusion. Mediastinum: No adenopathy. Aorta: There is calcification in the aortic arch and a focal area of enlargement at the superior aspect. The entire aortic arch was not included. Suggest a follow-up CT scan to evaluate the remaining aortic arch. This can be performed with IV contrast. Brant Rivas M.D. Pediatric/Diagnostic Radiologist Cardiothoracic Imaging [facility] [email or web address]/sp / ? Vaishali Baeza MD CT * SCAN CORRESP-IMAGING (11/30/2023 12:00 AM CDT) Only the most recent of2 resultswithin the time period is included. Anatomical Region Laterality Modality Other Scanner OTHER * SCAN-MRI INTERPRETATION (11/28/2023 12:00 AM CDT) Only the most recent of2 resultswithin the time period is included. Anatomical Region Laterality Modality Other Scanner OTHER * (ABNORMAL) XR DXA BONE DENSITY 2 SITES AXIAL (04/05/2019 11:28 AM CDT) Anatomical Region Laterality Modality Spine, HIPS, HIPL, HIPR Other Narrative 04/11/2019 10:38 AM CDT Please see scanned document for results of this study. 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 Healthcare Directive 11/14/2014 2:43 PM UPD ATED LIVING WILL/POWER OF LINT CLEANER FOR HEALTH CARE 03/20/00, [facility], 11/14/14 Care Teams News Assignment Editor Relationship Specialty Start Date End Date Vaishali Baeza MD [address] [place] [address] PCP - General 01/09/10 Lukas Feliz MD [address] [place] [address] Surgery - Otolaryngology 06/25/12 Waldo Bethea MD [address] [place] [address] Sports Medicine 06/25/12 Isha Gamble [address] [place] [address] Consulting Physician Allergy and Immunology 05/05/14 Isiah Price MD [address] [address] Ophthalmology Surgery 06/19/15
--- OUTSIDE RECORDS SUMMARY | 2024-02-26 15:58 | XMS_ITS | Encounter Summary ---
Author Organization [facility] Address [address] [place] [address] Care Team Providers Care Cardiovascular Or Nurse Name Role Phone Elsewhere, Pcp Primary Care Provider Unavailabl e Encounter Details Date Type Department Care Team (Latest Contact Info) Description 12/25/2023 11:20 AM CDT - 12/25/2023 1:17 PM CDT Hospital Encounter Division of Cardiovascular Diseases in [place], [place] [address] [place] [address] Ritchie Cosby M.D. [address] [place] [address] Discharge Disposition: Home or Self Care Social History Tobacco Use Types Packs/Day Years Used Date Smoking Tobacco: Never Smokeless Tobacco: Never Alcohol Use Standard Drinks/Week Comments Yes 7 (1 standard drink = 0.6 oz pur e alcohol) Daily caffeine [facility] Utilities Answer Date Recorded In the past 12 months has Slated, gas, oil, or water Tuee threatened to shut off services in your home? No 12/22/2023 Humiliation, Afraid, Rape, and Kick questionnair e Answer Date Recorded Within the last year, have y ou been afraid of your partner or ex-partner? No 12/22/2023 Within the last year, have y ou been humiliated or emotionally abused in other ways by your partner or ex-partner? No Within the last year, have y ou been kicked, hit, slapped, or otherwise physically hurt by your partner or ex-partner? No 12/22/2023 Within the last year, have y ou been raped or forced to have any kind of sexual activity by your partner or ex-partner? No 12/22/2023 Social Connection and Isolat ion Panel [NHANES] Answer Date Recorded In a typical week, how many times do you talk on the phone with family, friends, or neighbors? More than three times a week 09/27/2022 How often do you get togethe r with friends or relatives? Three times a week 09/27/2022 How often do you attend chur or rastafari services? More than 4 times per year 09/27/2022 Do you belong to any clubs o r organizations such as mosque groups, unions, fraternal or athletic groups, or [...] PHQ-2 Answer Date Recorded PHQ-2 Score 0 12/22/2023 [facility] - Occupational Stress Questionnaire Answer Date [...] the money to buy more. Never true 12/22/19 24 Within the past 12 months, t he food you bought just didn't last and you didn't have money to get more. Never true 12/22/2023 PRAPARE - Transportation Answer Date Re corded In the past 12 months, has l ack of transportation kept you from medical appointments or from getting medications? No 12/08 In the past 12 months, has l ack of transportation kept you from meetings, work, or from getting things needed for daily living? No 12/25/2023 Depression Answer Date Recor ded PHQ-9 Total Score (max 27) 0 12/21 Nutrition Answer Date Recorded On average, how [...] your living situation today? I have a [facility] place to live 12/22/2023 Education Answer Date Recorded What is the highest level of school you have completed or the highest degree you have received? Associate degree: occupational, technical, or vocational program 09/27/2022 Sex and Gender Information Value Date Recorded Sex Assigned at Female 06/28/2018 10:53 AM FUNERAL DIRECTOR/EMBALMER Gender Identity Female 06/28/2018 10:53 AM FUNERAL DIRECTOR/EMBALMER Sexual Orientation Straight 06/28/2018 10 :53 AM FUNERAL DIRECTOR/EMBALMER documented as of this encounter Medications at Time of Discharge [...] for 24 days. 48 tablet 12/29/2023 01/22/2024 acetaminophen (TYLENOL) 500 mg tablet Take 1,000 mg by mouth every 6 (six) hours as needed for pain. Alternates with ibuprofen 12/29/[address] tablet Take 81 mg by mouth daily. Has been taking 650mg 03/24/2023 12/29/2023 estradioL (VAGIFEM) 10 mcg vaginal tablet 10 mcg by other route daily. 01/03/2023 12/29/2023 ticagrelor (BRILINTA) 90 mg tablet Take 1 tablet (90 mg total) by mouth 2 (two) times a day for 28 days. 12/25/2023 12/29/2023 documented as of this encounter Plan of Treatment Upcoming Encounters Date Type Department Care Team (Late st Contact Info) Description 05/04/2024 3:00 PM CDT Education Department of Neurology in [place], [place] [address] [place] [address] Queta Quinn M.D. [address] [place] [address] documented as of this encounter Procedures Procedure Name Priority Date/Time Associated Diagnosis Comments EVENT MONITOR - HOSPITAL HOOKUP AT DISCHARGE Routine 01/20/2024 1:19 AM CDT Stroke (HCC) documented in this encounter Results * EVENT MONITOR - HOSPITAL HOOKUP AT [...] patient did not report any symptomatic events. Correctional Corporal: AUNG Sheffield / AUNG Lam Procedure Note Jaime Diop M.D. - 01/23/2024 1. The patient was monitored from 12/25/2023 to 01/20/2024. The patient'sbaseline rhythm was sinus with a varying P-wave morphology. 2. PVCs were seen singly. There were 5 runs of ventricular tachycardiaobserved. The longest run of VT was 9 beats. The maximum rate of VT [id number] bpm. 3. PACs were seen singly and in pairs. There were 22 runs ofsupraventricular tachycardia observed. The longest run of SVT was 17beats. The maximum rate of SVT was 187 bpm. 4. The patient did not report any symptomatic events. Correctional Corporal: AUNG Sheffield / AUNG Lam Ritchie Cosby M.D. [facility] CARDIAC SERVICES PROCEDURES MATTBIOJO-ANN DIAZ documented in this encounter Visit Diagnoses Not on filedocumented in this encounter Additional Health Concerns Assessment Noted Time PHQ-9 Depression Total Score: 0 12/22/19 24 2:00 PM CDT documented as of this encounter Care Teams Cardiovascular Or Nurse Relationship Specialty Start Date End Date Elsewhere, Pcp PCP - General Family Medicine 06/04/21 documented as of this encounter
--- OUTSIDE RECORDS SUMMARY | 2024-02-26 15:58 | XMS_ITS | Encounter Summary ---
Author Organization [facility] Address [address] [place] [address] Care Team Providers Care Car Pusher Name Role Phone Elsewhere, Pcp Primary Care Provider Unavailabl e Reason for Referral * Outpatient (Routine) - Closed Specialty Diagnoses / Procedures Referred By Darin mullen Referred To Contact Diagnoses Stroke (HCC) Ritchie Cosby M.D. [address] [place] [phone] [facility] Referral ID Status Reason Start Date Expiration Date Visits Re quested Visits Authorized [id number] Closed 12/25/2023 06/25/2025 1 1 Reason for Visit * Reason Comments Extremity Weakness * Auth/Cert (Routine) Specialty Diagnoses / Procedures Referred By Darin mullen Referred To Contact Diagnoses Stroke (HCC) Procedures ADMIT TO INPATIENT Referral ID Status Reason Start Date Expiration Date Visits Re quested Visits Authorized [id number] 1 1 Encounter Details Date Type Department Care Team (Latest Contact Info) Description 12/22/2023 4:55 AM CDT - 12/25/2023 1:11 PM CDT Hospital Encounter [facility], [facility], Second floor [address] [place] [phone] Apolinar Parrish M.D., M.A. [address] [place] [phone] Rolando Glynn M.D. [address] [place] [phone] Queta Quinn M.D. 200 [place] [phone] Rosalina Holly APRN, CMarthaNMarthaPMartha [address] [place] [phone] Stroke (HCC) (Primary Dx); Abnormal Gait Non Orthopedic [R26.89]; Lack Of Coordination [R27.9]; Abnormal Posture [R29.3] Discharge Disposition: Rehab Facility Social History Tobacco Use Types Packs/Day Years Used Date Smoking Tobacco: Never Smokeless Tobacco: Never Alcohol Use Standard Drinks/Week Comments Yes 7 (1 standard drink = 0.6 oz pur e alcohol) Daily caffeine [facility] Utilities Answer Date Recorded In the past 12 months has [employer], gas, oil, or water [employer] threatened to shut off services in your [...] often do you attend chur ch or anabaptist services? More than 4 times per year 09/27/2022 Do you belong to any clubs o r organizations such as roman catholic groups, unions, fraternal or athletic groups, or [...] Answer Date Recorded PHQ-2 Score 0 12/22/2023 [facility] [place] of Occupat ional Health - Occupational Stress [...] your living situation today? I [facility] 12/22/2023 Education Answer Date Recorded What is the highest level of school you have completed or the highest degree you have received? 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 Gender Identity Female 06/28/2018 10:53 AM HAND BOBBIN CLEANER Sexual Orientation Straight 06/28/2018 10 :53 AM HAND BOBBIN CLEANER documented as of this encounter Last Filed Vital Signs Vital Sign Reading Time Taken Comments Blood Pressure 147/57 12/25/2023 12:32 PM CDT Pulse 90 12/25/2023 12:32 PM CDT Temperature 36.5 ??C (97.7 ??F) 12/25/2023 12:32 PM C DT Respiratory Rate 16 12/25/2023 12:32 PM CDT Oxygen Saturation 100% 12/25/2023 12:32 PM CDT Inhaled Oxygen Concentration - - Weight 70.8 kg (156 lb 1.4 oz) 12/22/2023 11:30 AM CDT Height 157.5 cm (5' 2) 12/22/2023 11:30 AM CDT Body Mass Index 28.55 12/22/2023 11:30 AM CDT documented in this encounter Discharge Summaries * Ritchie Cosby M.D. - 12/25/2023 7:38 AM CDT DISCHARGE SUMMARY BRIEF OVERVIEW Hospital: [facility] Discharge Provider: Queta Quinn M.D. Primary Team: [facility] Neurology Stroke and Cerebrovascular Disease Admission Date: 12/22/2023 Discharge Date: 12/25/2023 PRIMARY DIAGNOSIS Stroke (HCC) SECONDARY DIAGNOSES Principal Problem: Stroke (HCC) Resolved Problems: * No resolved hospital problems. * DISCHARGE DISPOSITION Rehab Facility [62] ACTIVE ISSUES REQUIRING FOLLOW UP Follow Up: Please follow up with your [...] as is. OUTPATIENT FOLLOW UP Scheduled Appointments 02/16/2024 3:30 PM T INTAKE VISIT POD H 08 Admitting/Central Scheduling 02/18/2024 10:00 AM Susan Mckenzie D.O. Neurology For appointment details refer to your Patient Appointment Guide. TEST RESULTS PENDING AT DISCHARGE Pending Labs None DETAILS OF HOSPITAL STAY REASON FOR ADMISSION Stroke (HCC) HOSPITAL COURSE Ms. Latonya Gordon is a 83 y.o. female with a history of HTN, HLD, chronic pain, and recent R MCA territory infarcts (November 2023) who was seen in the ED for worsening L hemiparesis, found to have acute and subacute right MCA territory stroke. Patient had onset of left upper extremity weakness on 11/19. She was evaluated at local ED initially and had reportedly a negative CT. She presented to [facility] on 11/24 after developing sudden worsening of left upper extremity weakness. She was admitted and found to have right MCA territory infarct, specifically right precentral gyrus on brain MRI/. She was discharged to home on DAPT 81 mg of aspirin and 75 mg of Plavix. Her left upper extremity strength improved from 11/25 to 12/16. However on 12/16, she had sudden onset of left lower extremity weakness with worsening of her left upper extremity weakness. She presented to our ED where she was found to have new right MCA territory stroke concerning for possible symptomatic carotid stenosis. During her hospitalization at [facility] 11/24 - 11/27/23, she has had stroke workup including a CT head noncontrast on 11/24 which showed a small acute cortical infarct in the right precentral gyrus. A CT angiogram head and neck showed moderate possible right ICA stenosis, 50% by NASCET. She had a TTE that showed ejection fraction 60-65%, no common on the left atrial or appendageal size, no comment regarding intracardiac thrombus. A MRI brain without contrast performed 11/26 revealed acute right precentral gyrus cortical infarction, multiple small foci of diffusion restriction in the right frontal deep white matter and parietal cortex representing acute infarction, chronic left post central gyrus, parietal and deep white matter infarction. During this admission, extensive stroke workup has been obtained. A brain MRI without contrast on 12/21 revealed acute right MCA territory infarct including the right precentral gyrus. Due to concern for symptomatic carotid, we obtained MR angiogram of head and neck which showed 25-30% stenosis of right proximal ICA with predominantly noncalcified atherosclerotic plaque in this region with a thin rim of peripheral calcification. No evidence of intra plaque hemorrhage, this study was limited by motion artifact. 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 There was no left atrial dilatation or left appendageal thrombus. We suspect the mechanism of her stroke is most likely atheroembolic from her diffuse aortic arch atheroma. She has had extensive left MCA territorial infarcts as well as new right MCA territorial infarcts in the past 2 months. Cardioembolic etiology remains on the differential despite absence of a d ilatation or intracardiac thrombus. We will repeat a 30 day Holter monitor to rule out atrial fibrillation upon discharge. She will have a neurology follow up in 3 months to review the Holter monitorresults discussed potential anticoagulation therapy. She has been kept on aspirin and Plavix since her discharge from [facility] on 11/26. Dispensed hercompliance with taking DAPT, she had a new right MCA territory stroke. We decided to switch her Plavix to Brilinta 90 mg b.i.d. to complete a total of 30 days DAPT therapy with the end date on 01/22/2024. Patient has been evaluated by PT and OT and deemed an inpatient rehab candidate. Patient is motivated and agreed to move forward with inpatient rehabilitation. She was discharged on 12/25/23 to [facility] inpatient rehabilitation. Neurologic exam: Mental status: Alert. Oriented to person, place, and time. Can state month and age accurately. Ableto open and close eyes and open and close hand on command. Speech/Language: Speech clear. Language is intact including [...] soft palate, sternocleidomastoid muscles are strong. Strength: (L, R) arm abduction/deltoids (-1,0), arm flexion/biceps (-1,0) , arm extension/triceps (0,0), wrist extension (-1,0), wrist flexion (-1,0), finger extension (0,0), finger flexion (0,0), interosseoi muscles (-1,0). Hip flexion (-1,0), knee flexion (-1,0), knee extension (-1,0), dorsiflexion (0,0), plantarflexion (0,0). Reflexes: (L, R) Reflexes are +1 throughout, plantar reflexes plantar-plantar. Sensation: Normal sensation to light touch and pin prick in bilateral upper and lower extremities. There is no extinction to bilateral sensory stimuli. Coordination: Normal wxxoid-fkkq-bvmisv bilaterally. Normal srge-wu-wtbs bilaterally. Gait: Deferred. Neuro exam notable for: Left hemiparesis without neglect NIH Stroke Scale 1A. LOC: 0=alert; keenly responsive 1B. Questions: 0=answers both questions correctly 1C. Commands: 0=Performs both tasks correctly 2. Best Gaze: 0=normal 3. Visual: 0=No visual loss 4. Facial Palsy: 0=Normal symmetric movement 5A. Left Arm Motor: 1=Drift, limb holds 90 (or 45) degrees but drifts down before full 10 seconds: does not hit bed 5B. Right Arm Motor: 0=No drift, limb holds 90 (or 45) degrees for full 10 seconds 6A. Left Leg Motor: 1=Drift, leg falls by the end of the 5-second period but does not hit the bed 6B. Right Leg Motor: 0=No drift, leg holds 30 degrees for full 5 seconds 7. Limb Ataxia: 0=Absent 8. Sensory: 0=Normal; no sensory loss 9. Best Language:0=No aphasia, normal 10. Dysarthria: 0=Normal 11. Extinction: 0=No abnormality Final NIHSS Score: 2 CONSULTS ORDERED DURING THIS ADMISSION IP CONSULT TO NEUROLOGY IP CONSULT TO CARE MANAGEMENT IP CONSULT TO PHYSICAL MEDICINE & REHABILITATION IP CONSULT TO CARE MANAGEMENT CONDITION AT DISCHARGE stable Discharge instructions were provided to the patient and caregiver(s). Total time spent in discharge services today: 35 minutes. documented in this encounter Discharge Instructions * Discharge Instructions* Shasta Turner - 12/23/2023 7:31 AM CDT You were discharged from the Neurology Stroke Service. Please Identify this service name if you call with questions after your hospitalization. documented in this encounter Medications at Time [...] 12/25/2023 12/29/2023 documented as of this encounter Progress Notes * Keyon Page V., R.N. - 12/25/2023 11:57 AM CDT Patient discussed at Stroke multidisciplinary rounds. Patient is currently being followed by the following members of the Care Management team: Case Management Plan for the day: PT, OT, PMR MD, Discharge planning, Medication management, and Monitor labs Plan for stay: Stroke work up Discharge barriers: N/A discharge planned for today Recommended discharge disposition: IRF As discussed, multidisciplinary team members have had ongoing care and discharge discussions with the Patient and Family. 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 * Marcelle Santiago M.D. - 12/25/2023 10:55 AM CDT SUBJECTIVE Ms. Gordon is 83 y.o. female followed by Physical Medicine and Rehabilitation for stroke Since the last visit, Ms. Gordon reports slight improvement in her left hemiparesis. She is hoping that she will have full recovery as she did with her previous stroke. I have reviewed the current medication list. OBJECTIVE Temperature: [36.3 ??C-36.6 ??C] 36.6 ??C Heart Rate: [91] 91 Resp Rate: [15-16] 16 Blood Pressure: (116-145)/(53-63) 116/63 SpO2: [92 %-96 %] 96 % Physical Exam: GENERAL: Alert. No acute distress. HEENT: Normocephalic, atraumatic. LUNGS: Unlabored breathing pattern. Normal rate. EXTREMITIES: No swelling or erythema. Her left hemiparesis is improving such that she now has normal strength with left ankle dorsiflexion and ankle plantarflexion and improved strength and coordination in her left hand/finger since I last saw her two days ago. Diagnostics I reviewed the imaging studies and agree with the interpretation as recorded. I reviewed the pertinent laboratory and diagnostic data. ASSESSMENT / PLAN #1 Acute/subacute right frontal strokes #2 Left hemiparesis #3 Right trochanteric bursitis (previous right SPEEDY) #4 History of right MCA territory infarcts November 2023 with good functional recovery #5 Hypertension #6 Hyperlipidemia Mrs Gordon is accompanied by her . The rehabilitation team still recommends acute inpatient rehabilitation admission for comprehensive intensive interdisciplinary rehabilitation program to optimize her functional status prior to return to her home living environment. She and her are agreeable to pursuing acute inpatient rehabilitation admission. We have received insurance prior authorization. Admit to acute inpatient rehabilitation unit today. * Marcelle Santiago M.D. - 12/25/2023 10:24 AM CDT Facility Information: [facility] Rehabilitation Pre-Admission Screening Patient Information Patient Name: Latonya Gordon Address: [address] [facility] [address] Sex: Female Date of : 1940 Age: 83 y.o. Room/Bed: 291/291-P Coverage Information: Payor: BLUE CROSS BLUE SHIELD / Plan: [employer] [place] MED[place]ARE PLAN PPO / Product Type: PPO / ____ Rehab Physician's Review and Admission Determination Ms. Gordon is in need of acute inpatient rehabilitation in order to achieve the functional goals outlined below. She requires close rehabilitation physician monitoring and management due to her complex medical conditions and co- morbidities. She requires 24-hour rehabilitation nursing to manage bowel and bladder function, nutrition and fluid intake, pulmonary hygiene, pain control, safety, medication management, patient / family goals, skin care. In addition, rehabilitation nursing will reiterate and reinforce therapy skills and equipment use, including ADLs, as well as provide education to the patient and family. Ms. Gordon is willing to participate and is able to tolerate the proposed planof care. History of Present Illness and Rehabilitation Problem Rehabilitation Diagnosis Impairment Group: Stroke Stroke Impairment Group: 01.1 Left Body Involvement (Right Brain) Date of Onset: 12/22/23 Medical / Functional Conditions Requiring Inpatient Rehab: Acute/subacute right frontal strokes, Left hemiparesis, Right trochanteric bursitis (previous right SPEEDY), History of right MCA territory infarcts November 2023 with good functional recovery, Hypertension, Hyperlipidemia Risk for medical/clinical complications: Falls, Deep Vein Thrombosis / Pulmonary Embolism, Cardiovascular complication, Pain, Constipation, Stroke History of Present Illness: Ms. Gordon is a 83 y.o. 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 NIHSS [address]/CTA showed small chronic left sided infarcts and chronic small vessel ischemic disease, no large vessel occlusion. MRI/MRA shows multiple acute subacute infarcts right frontal lobe, right proximal ICA 25-30% stenosis. GERA with no shunt, no left atrial appendage thrombus; no hemodynamically significant valvular heart disease; diffuse moderate immobile atherosclerosis of descending thoracic aorta and aortic arch, aortic valve strands (degenerative) of low thromboembolic potential. She has been deemed a candidatefor acute inpatient rehabilitation. She has been working with therapy and making progress. She can t olerate the required hours of therapy per day. She requires a PMR physician and rehab nurse to manage her medical needs. Home Living Type of Home: House Home Layout: One level; Able to live on main level with bedroom/bathroom; Full bath main level; Laundry main level (One level home with a basement (rarely uses). All needs can be met on the main level.) Home Access: Stairs to enter with rails (3 step entry with rail.) Entrance Stairs: Rails: Left Entrance Stairs: Number of Steps: 2. Family looking into adding railing on R side Bathroom Shower/Tub: Walk-in shower Bathroom Toilet: Comfort height Bathroom Accessibility: Yes How Accessible: 2 Home Living Comments: Patient preferred taking baths Home Living Type of Home: House Home [...] taking baths Home Equipment Home Adaptive Equipment: Outbound Sales Professional, Long-handled shoe horn, Sock aid Gait Devices Owned: Four-wheeled walker, Cane Bathroom Equipment: Shower chair without back (Shower bench. Grab bars.) Prior Function Level of Clarence: Independent with ADLs and functional transfers; Independent with homemaking with ambulation Lives With: Spouse Receives Help From: Family ADL Assistance: Independent IADL/Homemaking Assistance: Independent Driving: Independent Special Rehabilitation Needs Special Rehabilitation Needs Requires modified schedule: no Precautions Diet Adult Diet Regular Discharge Diet for Adults Current Functional Status Eating: Setup or clean-up assistance (12/23/231454) Grooming: Partial/moderate assistance (12/23/231454) Upper Body Dressing: Partial/moderate assistance (12/23/231454) Lower Body Dressing: Substantial/maximal assistance (12/23/231454) Toileting: Partial/moderate assistance (12/23/231454) Bathing: Partial/moderate assistance (12/23/231454) Bed Mobility: Partial/moderate assistance (12/23/231454) Transfers: Partial/moderate assistance (12/23/231454) Functional Mobility: Partial/moderate assistance (12/23/231454) Distance: 20 Meters (12/23/23 1455) Willingness to Participate: Independent (12/23/231454) Cognition: Independent (12/23/231454) Communication: Independent (12/23/231454) Weight Bearing Status Upper Extremity Weight Bearing Restrictions RUE Weight Bearing: Weight bearing as tolerated LUE Weight Bearing: Weight bearing as tolerated Lower Extremity Weight Bearing Restrictions RLE Weight Bearing: Weight bearing as tolerated LLE Weight Bearing: Weight bearing as tolerated Rehabilitation Goals and Plans Rehab Goals and Plan Expected Level of Improvement for Mobility: The patient will ambulate safely and independently witha gait aid as needed Expected Level of Improvement for Self Care: Independent with ADLs with or without equip Expected Level of Improvement for Cognition: At baseline Expected Level of Improvement for Communication: At baseline Patient/Caregiver Goals: To return home with family Patient/Caregiver Goals: Return home safely with assistance of . Required Treatments and Services: Rehabilitation Physician, Rehabilitation Nursing, Physical Therapy, Occupational Therapy, Speech Therapy, Recreational Therapy, Vegetable Tier, Court Usher, Rehabilitation Psychology, Bowel and Bladder Management, Pediatric Care Coordinator, and Greenhouse Worker Services Anticipated Services Upon Discharge Anticipated Interventions Anticipated Interventions: Physical Therapy, Occupational Therapy PT Intensity Projected Minutes/Day: 90 PT Frequency Projected Days/Week: 5 PT Projected Duration Days: 12 OT Intensity Projected Minutes/Day: 90 OT Frequency Projected Days/Week: 5 OT Projected Duration Days: 12 Rehabilitation nursing to manage: bowel and bladder function, nutrition and fluid intake, pulmonaryhygiene, pain control, safety, medication management, patient / family goals, skin care Discharge Information Discharge information Projected Admission Date: 12/25/23 Discharge Support: spouse Estimated Length of Stay: 14 Anticipated Discharge Destination: 01 - Home (private home/apartment, assisted living, detention, transitional living) Anticipated Services Upon Discharge Anticipated Services Upon Discharge: Outpatient Therapy Learning Assessment Questions Primary Learner Name: Latonya Gordon Relationship: Patient, Family Does the primary learner have any barriers to learning?: No Barriers What is the preferred language of the primary learner for medical teaching?: Guamanian Is an sanitary landfill operator required?: No How does the primary learner prefer to learn new concepts?: Listening, Reading, Demonstration / Seeing Co-Learner Name (if applicable): Vincent Relationship: Patient, Family Does the co-learner have any barriers to learning?: No Barriers What is the preferred language of the co-learner for medical teaching?: Guamanian Is an sanitary landfill operator required?: No Information Brochures Given: Data Collection Information Summary for Patients in Inpatient Rehabilitation Facilities, Inpatient Rehabilitation Programs [id number], Brain Rehabilitation [id number] Marcelle Santiago M.D. * Queta Quinn M.D. - 12/25/2023 8:00 AM CDT Images from the original note were not included. SUBJECTIVE Improving OBJECTIVE Patient has mild drift in left lower; NIHSS motor in upper is normal. She has left distal finger extensor and interossei weakness No facial weakness. Data Review Echo Transesophageal (GERA) Result Date: [...] chronic left- sided infarcts are again seen. CBC: Lab Results Component Value Date WBC 5.3 12/22/2023 HGB 13.4 12/22/2023 HCT 40.2 12/22/2023 MCV 94.6 12/22/2023 PLT 246 12/22/2023 Lipids 12/22/2023 03/05/2023 11:44 AM 11:49 AM CHOL 145 182 TRIG 126 169 HDL 51 50 LDLCALC 72 -- TTLCHOLHDLRT -- 3.64 Lab Results Component Value Date HGBA1C 5.7 (H) 12/22/2023 Lab Results Component Value Date NA 142 12/22/2023 CL 106 12/22/2023 CREATININE 0.81 12/22/2023 EGFR 72 12/22/2023 BUN 17 12/22/2023 ANIONGAP 13 12/22/2023 GLUCOSE 119 12/22/2023 CALCIUM 9.4 12/22/2023 ASSESSMENT / PLAN #1 Right hemispheric watershed ischemic stroke #2 Mild atherosclerotic plaque right cervical and cavernous carotid # History of Hypertension # History of Hyperlipidemia Patient has evidence of an acute right hemispheric infarction in a watershed like location that recurred while on aspirin and plavix. Stroke may be due to nonstenotic plaque rupture (carotid cavernous/ carotid bifurcation/aorta) and she failed DAPT with plavix OR we she may have paroxysmal afib and requires anticoagulation over antiplatelet. Planning for 30 day heart monitor and switching antiplatelets to aspirin and brilinta x 30 days. If recurrent event, consider angiography and neurosurgery evaluation of right carotid artery - Diagnostic Studies: 30 day heart monitor - Antithrombotic: Aspirin 81 mg Brilinta 90 mg b.i.d. - Risk factors: Vascular risk factor goals for cerebral ischemia include: BP<130/80, LDL<70mg/dl If atherosclerotic stroke and beginning LDL >100mg/dl, normoglycemia, no tobacco, normal BMI (<25). - Functional Impairment: Physical medicine rehabilitation following ; possibly IPR today Awaiting rehab. No family present. Stroke prevention follow up * Fabiola Shi, P.T.A. - 12/24/2023 3:26 PM CDT Physical Therapy Acute Hospital Inpatient Treatment SUBJECTIVE Patient's Name: Latonya Gordon Reason for Referral: PT Eval & Treat (Brain Consult) Medical Diagnosis: 1. Stroke (HCC) 2. Abnormal Gait Non Orthopedic [R26.89] 3. Lack Of Coordination [R27.9] 4. Abnormal Posture [R29.3] History of Present Illness: Recent medical issues: [...] worse overtime. On 11/21/23, pt went to [facility] and had a CT scan which did [...] family doctor, who arranged emergency transportation to [facility]'s ED. [place] [facility] [place] during which time her L [...] termittently. Following this event she went to [facility]'s ED. After being evaluated by [facility]'s ED, she was discharged home. She describes being able to walk with a cane. Over the following day the symptoms in her left lower extremity worsened. On 12/21/23, her left lower extremity felt so weak and numb that she could not walk from her bed to her bathroom. On 12/22/23, she arrived to [place] EDfor workup and management. Stroke etiology is still unclear but include symptomatic carotid stenosis and cardioembolic. Patient had CT angiogram and MR angiogram of head and neck which showed 25-30% stenosis of right proximal ICA with a thin rim of peripheral calcification. Onset Date: 12/22/23 Patient/Caregiver Goals: Return home safely with assistance of . Patient Comments: Patient greeted at bedside and agreeable to treatment. She reports dizziness withambulation and nursing informed. Precautions Other Precautions: Fall Risk. L hemiparesis (leg>arm). Fall Risk (65 and older) Fall in the last 12 months: No Fall Risk Comments: Instability. L lower extremity weakness. OBJECTIVE Pain: reports mild headache with initial mobility to bathroom . She reports headache resolved with return to supine Vitals: HR: 77 bpm BP: 136/55 SpO2: 96% Bed Mobility - Rolling # of Assistants: 1 Level of Assistance: Minimal assistance Device: Bed Rail Cuing: Verbal, Tactile Bed Mobility - Supine to Sit # of Assistants: 1 Level of Assistance: Minimal assistance Device: Bed rail, Head of bed elevated Comments: She is able to bring lower extremity over edge of bed and requires assist at trunk Bed Mobility - Sit to Supine # of Assistants: 1 Level of Assistance: Minimal assistance Device: Head of bed elevated, Bed rail Cuing: Verbal, Tactile Comments: Contact guard assistance for safety Sit to Stand Transfers Transfer Surface: Bed, Toilet/Commode Transfer Equipment: Front wheeled walker, Gait belt Level of Assistance: Moderate assistance, Minimal assistance Assessment/Delivery: Assessed, Instructed, Therapist assisted, Facilitated Comments: Patient inititally required moderate assist for transfer from edge of bed. With verbal cues for sequence and hand placement progress to min assist. She requires verbal cues for hand placement with wanting to pull up on walker. Stand to Sit Transfers # of Assistants: 1 Transfer Surface: Bed, Toilet/Commode Transfer Equipment: Gait belt, Front wheeled walker Level of Assistance: Minimal assistance, Contact guard assistance Assessment/Delivery: Assessed, Instructed, Therapist assisted Comments: for control, safety and verbal cues for hand placement Gait Assessment/Training Distance (m): 15 m (7m & 5m) Surface: Even, Smooth/hard Device: Gait belt, Front-wheeled walker # of Assistants: 1 Level of Assistance: Moderate assistance, Minimal assistance Assessment of Gait: Ambulating with shortened, but fairly even step lengths. Slowed wayne. Decreased arm swing. Decreased heel strike, but clearing L foot during swing phase. Decreased L lateral and posterior hip stability during stance. Training/Intervention: Initially moderate assist with left lower extremity weakness and slight leftknee buckling. Walker height adjusted to allow improved weight bearing through upper extremity and she demostrate improved step length and stability allowing increase distance. Response: Patient with reports of dizziness with initital ambulation. Upon sitting edge of bed she reports mild headache, dizziness, nausea and short of breath. Symptoms releaved with return to supine. Patient request to walk again post symptoms resovling with report of mild dizziness with longer walk. Patient/Family Training: Education on hand placement for transfers with use of front wheeled walkerfor improved safety and independence. At the end of today's therapy session patient was left bathroom and nursing informed with an appropriate call light within reach. Patient's needs and questions addressed during today's session. Assessment Patient demonstrate improved safety and stability with use of front wheeled walker. She demonstrates decrease strength and stability left lower extremity with slight knee buckling x1 this date. She demonstrate good sitting balance edge of bed and on toilet. Slight lean left with standing for clothing with use of bathroom. She is functioning below her baseline and will benefit from ongoing physical therapy for progression of strength, neuromuscular reeducation and functional mobility per plan ofcare. From the Physical Therapist's perspective, the patient is an inpatient rehabilitation candidate Barriers to a safe discharge home: Barriers to Discharge Home: Current functional status, Fall risk, Safety concerns Comorbid Conditions: (HTN, HLD, chronic neck pain, h/o left leg melanoma, and recent R MCA territory infarcts (November 2023), R SPEEDY.) Personal Factors: Balance impairment, Hearing impairment, Needs assistive device, Safety awareness Discharge Therapy Needs - PT: Ongoing skilled physical therapy Level of Care Needed - PT: Physical assistance needed Skilled therapy can include physical therapy provided by home health, outpatient clinic, or a post-acute facility. The location of these services is determined by the patient's care team in partnership with patient/family. Functional Goals and Timeframes: PT Goal #1: Supine to/from sit transfers performed from flat surface without bedrails with supervision. PT Goal #1 Date: 12/30/23 PT Goal #1 Status: Progressing PT Goal #2: Sit to/from stand transfers performed from various surfaces with most appropriate assistive device and contact guard assistance. PT Goal #2 Date: 12/30/23 PT Goal #2 Status: Progressing PT Goal #3: Ambulate 150' on smooth, level surface with most appropriate assistive device and contact guard assistance. PT Goal #3 Date: 12/30/23 PT Goal #3 Status: Progressing PT Goal #4: Ascend/descend 4 steps with one rail and most appropriate assistive device with contactguard assistance. PT Goal #4 Date: 12/30/23 PT Goal #4 Status: Ongoing Plan Patient agrees with the plan of care and goals. Treatment Plan: PT Frequency: 6 times per week PT Amount: 1 visit per day PT Inpatient Duration : Until goals are met or hospital discharge Plan: Continue with current plan PT Plan Comments: Will continue with bed mobility, transfer training, unsupported sitting/standing balance, neuromuscular reeducation, higher level balance/coordination activities, gait training, safety on stairs and pt/family education. 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 RMarthaNMartha - 12/24/2023 12:48 PM CDT Patient discussed at Stroke multidisciplinary rounds. Patient is currently being followed by the following members of the Care Management team: Case Management Plan for the day: PT, OT, PMR MD, Discharge planning, Medication management, and Monitor labs Plan for stay: Stroke work up Discharge barriers: Prior authorization for insurance pending Recommended discharge disposition: IRF As discussed, multidisciplinary team members have had ongoing care and discharge discussions with the Patient and Family. 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 * Ruthie Tovar M.S., O.T., MOT - 12/24/2023 10:20 AM CDT Occupational Therapy Acute Hospital Inpatient Progress Note SUBJECTIVE Patient's Name: Latonya Gordon Reason for Referral: OT Eval & Treat (Brain Consult) Medical Diagnosis: 1. Stroke (HCC) 2. Abnormal Gait Non Orthopedic [R26.89] 3. Lack Of Coordination [R27.9] 4. Abnormal Posture [R29.3] History of Present Illness: Recent medical issues: [...] worse overtime. On 11/21/23, pt went to [facility] and had a CT scan which did [...] family doctor, who arranged emergency transportation to [facility]'s [place]. [place] [...] termittently. Following this event she went to [facility]'s ED. After being evaluated by [facility]'s ED, she was discharged home. She describes being able to walk with a cane. Over the following day the symptoms in her left lower extremity worsened. On 12/21/23, her left lower extremity felt so weak and numb that she could not walk from her bed to her bathroom. On 12/22/23, [place] [place]. Stroke etiology is still unclear but include symptomatic carotid stenosis and cardioembolic. Patient had CT angiogram and MR angiogram of head and neck which showed 25-30% stenosis of right proximal ICA with a thin rim of peripheral calcification. Onset Date: 12/22/23 Patient/Caregiver Goals: Return home safely with assistance of . Precautions Other Precautions: Fall Risk. L hemiparesis (leg>arm). Fall Risk (65 and older) Fall in the last 12 months: No Fall Risk Comments: Instability. L lower extremity weakness. OBJECTIVE Pain: No pain indicated by patient during session. Vitals: Patient BP assessed when seated in bedside chair per patient complaints of nausea. BP /52. Therapeutic functional activity: Bed Mobility - Supine to Sit # of Assistants: 1 Level of Assistance: Minimal assistance Device: Bed rail, Head of bed elevated Comments: Patient moved supine to sit edge of bed with increased time and therapist providing minimal assistance. Bed, Chair, Wheelchair Transfers # of Assistants: 1 Transfer Surface: Bed, Chair Transfer Approach: Ambulating, To Transfer Equipment: No device Level of Assistance: Minimal assistance Assessment/Delivery: Assessed, Therapist assisted, Facilitated Comments: Minimal assistance in completion of functional ambulating transfer from bed to bedside chair. No loss of balance in completion of transfer, however, does demonstrate left knee weakness. Patient provided with MC foam block coordination strengthening ([id number]) and MC coordination exercises for arms and hands ([id number]) handouts. Patient demos completion of all MC foam block coordination strengthening exercises as listed in handout using left upper extremity following therapist verbal instruction and visual demonstration. Patient/Family Education: Role of OT, rationale of intervention, discussion regarding IRF At the end of today's therapy session patient was left seated in bedside chair with an appropriate call light within reach and nurse aware of patient position. Patient's needs and questions addressedduring today's session. Assessment Patient agreeable and participatory in all planned session activities on this date. Presents with Lhemiplegia, impaired midline, limited insight into deficits, and decreased activity tolerance limiting current level of functional occupational performance. Completing functional ambulating transferswith OT grossly minimal assistance at gait belt with increased time and verbal instruction as needed. Demonstrates left knee buckle in completion of functional ambulation, however, no loss of balance. Session focus placed on continued addressing of left upper extremity coordination deficits. Patient benefits from verbal and tactile cueing in finding midline and awareness to left upper extremity positioning while seated edge of bed. Ongoing assessment of vision and cognition recommended at this time. Patient is below functional baseline and would benefit from ongoing skilled OT services to address listed deficits and support improved independence and safety in completion of daily occupation. From the Occupational Therapist's perspective, the patient is an inpatient rehabilitation candidatedue to requiring ongoing physical assistance with skilled need for activities of daily living and/or cognition. Will formally discuss at next PMR team rounds and communicate with primary service accor larisa. Barriers to Discharge Home: Current functional status, Safety concerns Comorbid Conditions: Cerebrovascular accident, Other (Comment) (Hypertension, hyperlipidemia) Personal Factors: Age, Balance impairment, Hearing impairment, Visual impairment Discharge Therapy Needs - OT: Ongoing skilled occupational therapy Level of Care Needed - OT: Assistance with toileting, Assistance with toilet/shower transfers, Assistance with medication set up/administration, Assistance with showering/bathing, Assistance with financial representative, Assistance with meal preparation, Assistance with dressing, Assistance with eating/feeding, Assistance with transportation, Assistance with housekeeping, Assistance with shopping, Physical assistance needed Skilled therapy can include occupational therapy provided by home health, outpatient clinic, or a post-acute facility. The location of these services is determined by the patient's care team in partnership with patient/family. Recommended Adaptive Equipment - OT: Shower chair with back, Other (Comment) (Family discussing rail on R side of entry steps) Functional Goals and Timeframes: OT Goal #1: Patient will complete lower body dressing seated edge of bed with no more than minimal assistance to support increased independence in completion of activities of daily living. OT Goal #1 Status: Progressing OT Goal #2: Patient will complete functional ambulating toileting transfer with moderate assistanceand use of least restrictive gait aid to support safety and independence in completion of daily occupations. OT Goal #2 Status: Progressing OT Goal #3: Patient will demonstrate independent recall and use of hemidressing techniques to support independence upon homegoing. OT Goal #3 Status: Ongoing OT Goal #4: Patient and family to demonstrate understanding of needed assist level and equipment recommendations in support of safe homegoing. OT Goal #4 Status: Ongoing Progress: Progressing toward goals Plan Patient agrees with the plan of care and goals. Treatment Plan: OT Frequency: 5 times per week OT Amount: 1 visit per day OT Inpatient Duration : Until goals are met or hospital discharge Plan: Continue with current plan Treatment interventions may include: Treatment Interventions: Therapeutic exercise, Therapeutic functional activity, Neuromuscular re-education, Self-care/home management, Cognitive skills training, Therapeutic modalities as needed Time Spent with Patient: Therapeutic Interventions Therapeutic Activity (min): 26 min Time Tracking Total Timed Units (min): 26 min Total Treatment Time (min): 26 min Ruthie Tovar M.S., O.T., MOT * Ritchie Cosby M.D. - 12/24/2023 6:43 AM CDT Images from the original note were not included. Cerebrovascular Neurology Progress Note SUBJECTIVE No acute events overnight. Patient is resting comfortably in bed this morning. Patient reports that she did not sleep much last night due to her neck pain. She did not find the lidocaine patch as helpful as it did the night before. Denies having any new neurological symptoms. OBJECTIVE Temperature: [36.1 ??C-36.5 ??C] 36.5 ??C Heart Rate: [61-88] 88 Resp Rate: [12-23] 18 Blood Pressure: (113-160)/(53-79) 137/55 SpO2: [91 %-99 %] 96 % Flow Rate (L/min): [2 L/min-4 L/min] 2 L/min Pulse Rate: [62-82] 80 Physical Exam: Constitutional: well-developed, well-nourished, resting in bed Lungs: Breathing comfortably on room air. Neurologic exam: Mental status: Alert. Oriented to person, place, and time. Can state month and age accurately. Ableto open and close eyes and open and close hand on command. Speech/Language: Speech clear. Language is intact including [...] soft palate, sternocleidomastoid muscles are strong. Strength: (L, R) arm abduction/deltoids (-1,0), arm flexion/biceps (-1,0) , arm extension/triceps (0,0), wrist extension (-1,0), wrist flexion (-1,0), finger extension (0,0), finger flexion (0,0), interosseoi muscles (-1,0). Hip flexion (-1,0), knee flexion (-1,0), knee extension (-1,0), dorsiflexion (0,0), plantarflexion (0,0). Reflexes: (L, R) Reflexes are +1 throughout, plantar reflexes plantar-plantar. Sensation: Normal sensation to light touch and pin prick in bilateral upper and lower extremities. There is no extinction to bilateral sensory stimuli. Coordination: Normal uwgzdl-[id number] bilaterally. Normal hpqn-bi-buvi bilaterally. Gait: Deferred. Neuro exam notable for: Left hemiparesis without neglect NIH Stroke Scale 1A. LOC: 0=alert; keenly responsive 1B. Questions: 0=answers both questions correctly 1C. Commands: 0=Performs both tasks correctly 2. Best Gaze: 0=normal 3. Visual: 0=No visual loss 4. Facial Palsy: 0=Normal symmetric movement 5A. Left Arm Motor: 1=Drift, limb holds 90 (or 45) degrees but drifts down before full 10 seconds: does not hit bed 5B. Right Arm Motor: 0=No drift, limb holds 90 (or 45) degrees for full 10 seconds 6A. Left Leg Motor: 1=Drift, leg falls by the end of the 5-second period but does not hit the bed 6B. Right Leg Motor: 0=No drift, leg holds 30 degrees for full 5 seconds 7. Limb Ataxia: 0=Absent 8. Sensory: 0=Normal; no sensory loss 9. Best Language:0=No aphasia, normal 10. Dysarthria: 0=Normal 11. Extinction: 0=No abnormality TOTAL SCORE: 2 Diagnostics: I have reviewed the labs, ECG, xray, diagnostics, and echo from admission. MR brain w/o contrast 12/22/23: MRA head and neck: IMPRESSION: 1. Multiple small acute subacute infarcts [...] the cervical and intracranial arteries as described. GERA 12/23/2023: Final Impressions 1. Diffuse moderate immobile (atheroma [...] low thromboembolic potential. 8. No pericardial effusion. OSH records (reports only, no images are available for review): CT angio neck 11/20: moderate proximal right ICA stenosis, 50% by NASCET CT head noncontrast 11/24: Findings consistent with a small acute cortical infarct involving the right precentral gyrus, no intracranial hemorrhage. TTE 11/24: EF 60-65%, note comment on left atrial or appendageal size. No comment regarding intracardiac thrombus. MRI brain 11/26: Acute right precentral gyrus cortical infarction, multiple small foci of diffusion restriction in the right frontal deep white matter and parietal cortex representing acute infarction, chronic left post central gyrus, parietal and deep white matter infarction. ASSESSMENT / PLAN Ms. Latonya Gordon is a 83 y.o. female with a history of HTN, HLD, chronic pain, and recent R MCA territory infarcts (November 2023) who was seen in the ED for worsening L hemiparesis, found to have acute and subacute right MCA territory stroke. A transesophageal echocardiogram was obtained on 12/22 which revealed diffuse moderate immobile atheroma measuring 3-5 mm thickness with the ulcerations of the descending thoracic aorta and aortic arch. We have suspicion that the etiology of her stroke could also be atheroembolic from the diffuse aortic arch atheroma seen on GERA. She has multiple old left MCA territory infarcts as well as new right MCA territory infarcts. The isolated right proximal ICA stenosis would not explain the old infarcts seen on left MCA. Cardioembolic etiology still on the differential and I would recommend repeating a 30 day Holter monitor to rule out atrial fibrillation. She will follow up with Neurology in 2 months to discuss the results of Holter monitor study. We are going to switch her from clopidogrel to ticagrelor 90 mg b.i.d. and continue aspirin 81 mg daily for dual antiplatelet therapy for a total of 30 days. Patient has been evaluated by PT OT and deemed an IPR candidate. The patient is very motivated and is looking forward to pursuing IPR rehabilitation. We continued appreciate evaluation by our brain rehab team. Today's Plan (12/24/23): - continue DAPT with Aspirin and Brilinta for a total of 30 days DAPT therapy (End date: 01/22/2024) - discharged on 30 day of [place] Holter monitor with neurology follow up in 2 months. - pending IPR bed availability and insurance paperwork # Acute Ischemic Infarct, Right MCA territory, cardioembolic etiology # Acute on subacute worsening L. hemiparesis # History of recent R MCA territory infarcts, including R precentral gyrus # HTN # HLD # Chronic pain Workup: - Neuroimaging - Noncontrast CT head (OSH) 12/16 showed No acute hemorrhage or large territory infarct. 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 - CT angio head and neck obtained at OSH 12/16 reviewed, mild atherosclerotic disease at bilateral carotid bulb, no significant degree of stenosis seen on my review. - MRI brain without contrast showed multiple small acute subacute infarcts for a frontal lobe. - MRA head and neck showed approximately 25-30% stenosis right proximal ICA, carotid plaque protocol limited by motion showed predominantly non calcified atherosclerotic plaque in right proximal ICA region with a thin rim of peripheral calcifications; no evidence of intra plaque hemorrhage. - Baseline ECG: Normal sinus rhythm, QTC 420 - Stroke risk factor work up: - HbA1c 5.7%, fasting lipid panel- LDL 72, TSH - WNL at 3.1 - Reportedly she had a 14 day Holter monitor study which was reportedly normal by patient (we do not have this report available for review at this time) - GERA revealed diffuse moderate immobile atheroma measuring 3-5 mm thickness with the ulcerations of the descending thoracic aorta and aortic arch. Management: - Neuro Checks per Unit protocol => stat noncontrast head CT for change in exam - Cardiac Monitoring for 24 hours - Monitor vitals per unit routine protocol - Blood Pressure goal: SBP <180 (out of 24 hour post stroke period for permissive hypertension) - BG Goal: 140-180 - continue Aspirin 81 mg daily and Brilinta 90 mg BID for a total of 30 days DAPT therapy (End date: 01/22/2024) - Statin: Continue home rosuvastatin 20 mg daily - Passed bedside swallow, diet initiated - Brain Rehab Team consulted, appreciate recs - Speech Pathology not consulted due to no deficit - SWS consulted for assistance with d/c planning, appreciate recs # Chronic neck pain - acetaminophen 650 mg q.6 hours as needed - lidocaine patch - triple cream - nightly oxycodone, home dose 5 mg q.h.s. Diet: Regular Diet Tubes/lines: PIV VTE prophylaxis: heparin Code status: Full Code Surrogate Decision Maker: Spouse, Vincent Disposition: Uncertain Please do not hesitate to page the Cerebrovascular Neurology Service pager at [phone] with any questions or concerns. [facility] Stroke Neurology Service Services Host: Dr. Cheyenne Cosby M.D. * Queta Quinn M.D. - 12/24/2023 6:12 AM CDT Images from the original note were not included. SUBJECTIVE Had trouble sleeping overnight; slightly light headed. But had late breakfast. OBJECTIVE Patient has mild left drift in both the upper and lower extremity. She has left distal finger extensor and interossei weakness No facial weakness. Data Review Echo Transesophageal (GERA) Result Date: [...] chronic left- sided infarcts are again seen. CBC: Lab Results Component Value Date WBC 5.3 12/22/2023 HGB 13.4 12/22/2023 HCT 40.2 12/22/2023 MCV 94.6 12/22/2023 PLT 246 12/22/2023 Lipids 12/22/2023 03/05/2023 11:44 AM 11:49 AM CHOL 145 182 TRIG 126 169 HDL 51 50 LDLCALC 72 -- TTLCHOLHDLRT -- 3.64 Lab Results Component Value Date HGBA1C 5.7 (H) 12/22/2023 Lab Results Component Value Date NA 142 12/22/2023 CL 106 12/22/2023 CREATININE 0.81 12/22/2023 EGFR 72 12/22/2023 BUN 17 12/22/2023 ANIONGAP 13 12/22/2023 GLUCOSE 119 12/22/2023 CALCIUM 9.4 12/22/2023 ASSESSMENT / PLAN #1 Right hemispheric watershed ischemic stroke #2 Mild atherosclerotic plaque right cervical and cavernous carotid # History of Hypertension # History of Hyperlipidemia Patient has evidence of an acute right hemispheric infarction in a watershed like location that recurred while on aspirin and plavix. Stroke may be due to nonstenotic plaque rupture (carotid cavernous/ carotid bifurcation/aorta) and she failed DAPT with plavix OR we she may have paroxysmal afib and requires anticoagulation over antiplatelet. Planning for 30 day heart monitor and switching antiplatelets to aspirin and brilinta x 30 days. - Diagnostic Studies: 30 day heart monitor - Antithrombotic: Aspirin 81 mg Brilinta 90 mg b.i.d. - Risk factors: Vascular risk factor goals for cerebral ischemia include: BP<130/80, LDL<70mg/dl If atherosclerotic stroke and beginning LDL >100mg/dl, normoglycemia, no tobacco, normal BMI (<25). - Functional Impairment: Physical medicine rehabilitation following to determine disposition * Keyon Page R.N. - 12/23/2023 1:20 PM CDT Patient discussed at Stroke multidisciplinary rounds. Patient is currently being followed by the following members of the Care Management team: Case Management plans to visit the patient today Plan for the day: PT, OT, PMR MD, GERA, Case management consult, Cardiac monitoring, Discharge planning, Medication management, and Monitor labs Plan for stay: Stroke work up Discharge barriers: Inpatient needs Recommended discharge disposition: Pending PT/OT recommendations As discussed, multidisciplinary team members have had ongoing care and discharge discussions with the Patient and Family. Multidisciplinary team indicated Patient and Family may benefit from the following discharge services: Pending PT/OT assessment and recommendations and Pending assessments of providers. * Marita Cruz Pharm.D., R.Ph. - 12/23/2023 7:57 AM CDT Pharmacist Progress Note Reason for admission: acute ischemic stroke, recent R MCA infarct November PMH: HTN, HLD, chronic pain on opioids, GERD, L leg melanoma, fibromyalgia OBJECTIVE Home medications: Held: OTC supplements, Yuvafem Changed: aspirin dose decreased Patient own medications: none Prophylaxis: heparin ASSESSMENT / PLAN Continue dual antiplatelet therapy with aspirin 81 mg and daily. Patient had been taking analgesic-doses of aspirin with clopidogrel prior to admission. Also considering switching to ticagrelor and/or checking [id number] testing. Continue home rosuvastatin. Permissive hypertension in the acute stroke phase. On home losartan 50 mg daily. Changes to medications anticipated at discharge: aspirin dose decreased Marita Cruz Pharm.D., R.Ph. * Ritchie Cosby M.D. - 12/23/2023 6:38 AM CDT Images from the original note were not included. Cerebrovascular Neurology Progress Note SUBJECTIVE No acute events overnight. This morning patient is resting comfortably in bed. States that the lidocaine patch and Tylenol have provided sufficient relief of her neck pain. She slept very well. No new symptoms since yesterday.She feels that her left arm strength has improved slightly since yesterday. No other concerns at this time. OBJECTIVE Temperature: [36.2 ??C-36.5 ??C] 36.3 ??C Heart Rate: [62-85] 67 Resp Rate: [12-23] 19 Blood Pressure: (127-152)/(51-70) 127/58 SpO2: [92 %-99 %] 92 % Pulse Rate: [63-79] 63 Physical Exam: Constitutional: well-developed, well-nourished, resting comfortably in bed Lungs: Breathing comfortably on room air. Clear to auscultation bilaterally. Cardiac: regular rate and rhythm, no murmur Abdomen: Soft, non-tender, non-distended, normoactive bowel sounds Skin: No rash on exposed skin. Neurologic exam: Mental status: Alert. Oriented to person, place, and time. Can state month and age accurately. Ableto open and close eyes and open and close hand on command. Speech/Language: Speech clear. Language is intact including [...] soft palate, sternocleidomastoid muscles are strong. Strength: (L, R) arm abduction/deltoids (-1,0), arm flexion/biceps (-1,0) , arm extension/triceps (0,0), wrist extension (-1,0), wrist flexion (-1,0), finger extension (0,0), finger flexion (0,0), interosseoi muscles (-1,0). Hip flexion (-1,0), knee flexion (-1,0), knee extension (-1,0), dorsiflexion (0,0), plantarflexion (0,0). Reflexes: (L, R) Reflexes are +1 throughout, plantar reflexes plantar-plantar. Sensation: Normal sensation to light touch and pin prick in bilateral upper and lower extremities. There is no extinction to bilateral sensory stimuli. Coordination: Normal [id number] bilaterally. Normal [id number] bilaterally. Gait: Deferred. Neuro exam notable for: Left hemiparesis without neglect NIH Stroke Scale 1A. LOC: 0=alert; keenly responsive 1B. Questions: 0=answers both questions correctly 1C. Commands: 0=Performs both tasks correctly 2. Best Gaze: 0=normal 3. Visual: 0=No visual loss 4. Facial Palsy: 0=Normal symmetric movement 5A. Left Arm Motor: 1=Drift, limb holds 90 (or 45) degrees but drifts down before full 10 seconds: does not hit bed 5B. Right Arm Motor: 0=No drift, limb holds 90 (or 45) degrees for full 10 seconds 6A. Left Leg Motor: 1=Drift, leg falls by the end of the 5-second period but does not hit the bed 6B. Right Leg Motor: 0=No drift, leg holds 30 degrees for full 5 seconds 7. Limb Ataxia: 0=Absent 8. Sensory: 0=Normal; no sensory loss 9. Best Language:0=No aphasia, normal 10. Dysarthria: 0=Normal 11. Extinction: 0=No abnormality TOTAL SCORE: 2 Diagnostics: I have reviewed the labs, ECG, xray, diagnostics, and echo from admission. MR brain w/o contrast 12/22/23: MRA head and neck: IMPRESSION: 1. Multiple small acute subacute infarcts [...] the cervical and intracranial arteries as described. GERA 12/23/2023: Final Impressions 1. Diffuse moderate immobile (atheroma [...] low thromboembolic potential. 8. No pericardial effusion. OSH records (reports only, no images are available for review): CT angio neck 11/20: moderate proximal right ICA stenosis, 50% by NASCET CT head noncontrast 11/24: Findings consistent with a small acute cortical infarct involving the right precentral gyrus, no intracranial hemorrhage. TTE 11/24: EF 60-65%, note comment on left atrial or appendageal size. No comment regarding intracardiac thrombus. MRI brain 11/26: Acute right precentral gyrus cortical infarction, multiple small foci of diffusion restriction in the right frontal deep white matter and parietal cortex representing acute infarction, chronic left post central gyrus, parietal and deep white matter infarction. ASSESSMENT / PLAN Ms. Latonya Gordon is a 83 y.o. female with a history of HTN, HLD, chronic pain, and recent R MCA territory infarcts (November 2023) who was seen in the ED for worsening L hemiparesis, found to have acute and subacute right MCA territory stroke. A transesophageal echocardiogram was obtained on 12/22 which revealed diffuse moderate immobile atheroma measuring 3-5 mm thickness with the ulcerations of the descending thoracic aorta and aortic arch. I now have higher suspicion that the etiology of her stroke is atheroembolic from her diffuse aortic arch atheroma. She has extensive left MCA territory infarcts as well as new right MCA territoryinfarcts. The isolated right proximal ICA stenosis would not explain the old infarcts seen on left MCA. Cardioembolic etiology still on the differential and I would recommend repeating a 30 day Holter monitor to rule out atrial fibrillation. We are going to switch her from clopidogrel to ticagrelor and continue aspirin for dual antiplatelet therapy for a total of 30 days. Patient has been evaluated by PT OT and deemed an IPR candidate. The patient is very motivated and is looking forward to pursuing IPR rehabilitation. We continued appreciate evaluation by our brain rehab team. Today's Plan (12/23/23): - GERA revealed diffuse moderate immobile atheroma measuring 3-5 mm thickness with the ulcerations of the descending thoracic aorta and aortic arch. - switch Plavix to Brilinta for a total of 30 days DAPT therapy - PT/OT evaluation, possible IPR candidate? Patient is motivated and very much interested # Acute Ischemic Infarct, Right MCA territory, cardioembolic etiology # Acute on subacute worsening L. hemiparesis # History of recent R MCA territory infarcts, including R precentral gyrus # HTN # HLD # Chronic pain Workup: - Neuroimaging - Noncontrast CT head (OSH) 12/16 showed No acute hemorrhage or large territory infarct. 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 - CT angio head and neck obtained at OSH 12/16 reviewed, mild atherosclerotic disease at bilateral carotid bulb, no significant degree of stenosis seen on my review. - MRI brain without contrast showed multiple small acute subacute infarcts for a frontal lobe. - MRA head and neck showed approximately 25-30% stenosis right proximal ICA, carotid plaque protocol limited by motion showed predominantly non calcified atherosclerotic plaque in right proximal ICA region with a thin rim of peripheral calcifications; no evidence of intra plaque hemorrhage. - Baseline ECG: Normal sinus rhythm, QTC 420 - Stroke risk factor work up: - HbA1c 5.7%, fasting lipid panel- LDL 72, TSH - WNL at 3.1 - Reportedly she had a 14 day Holter monitor study which was reportedly normal by patient (we do not have this report available for review at this time) [ ] GERA ordered, NPO MN Management: - Neuro Checks per Unit protocol => stat noncontrast head CT for change in exam - Cardiac Monitoring for 24 hours - Monitor vitals per unit routine protocol - Blood Pressure goal: SBP <180 (out of 24 hour post stroke period for permissive hypertension) - BG Goal: 140-180 - switch Plavix 75 mg daily to Brilinta 90 mg BID for a total of 30 days DAPT therapy (End date: 01/22/2024) - Statin: Continue home rosuvastatin 20 mg daily - Passed bedside swallow, diet initiated - Brain Rehab Team consulted, appreciate recs - Speech Pathology not consulted due to no deficit - SWS consulted for assistance with d/c planning, appreciate recs # Chronic neck pain - acetaminophen 650 mg q.6 hours as needed - lidocaine patch - triple cream - nightly oxycodone, home dose 5 mg q.h.s. Diet: Regular Diet Tubes/lines: PIV VTE prophylaxis: heparin Code status: Full Code Surrogate Decision Maker: SpouseVincent Disposition: Uncertain Please do not hesitate to page the Cerebrovascular Neurology Service pager at [phone] with any questions or concerns. T Stroke Neurology Service Services Host: Dr. Cheyenne Cosby M.D. * Johana Engel, Alejandro, R.Ph., BCPP - 12/22/2023 7:29 PM CDT Images from the original note were not included. Admission Medication History Note Adherence issues: No concerns Medication list source: Patient and Pharmacy or dispense records Medication related information: Patient reported that she takes the Yuvafem on M,W,F Patient reported that she does not take loratadine Prior to Admission Medications Med List Status: Pharmacy Complete Set By: Johana Engel, Margoth., R.Ph., BCPP at 12/22/2023 7:26 PM Taking? Last Dose Informant Start Date End Date LT acetaminophen (TYLENOL) 500 mg tablet 12/22/2023 -- -- -- Take 1,000 mg by mouth every 6 (six) hours as needed for pain. Alternates with ibuprofen albuterol 90 mcg/actuation inhaler More than a month -- 02/26/21 -- Inhale 2 puffs every 4 (four) hours as needed for shortness of breath. aspirin [address] tablet Unknown -- 03/24/23 -- Take 81 mg by mouth daily. Has been taking 650mg Notes: Not taking calcium carbonate-vitamin D3 200 mg (500 mg) -400 unit capsule 12/21/2023 -- 05/05/17 -- Take 2 tablets by mouth at bedtime. cholecalciferol (VITAMIN D3) 50 mcg (2,000 Unit) capsule 12/22/2023 -- 05/05/17 -- Take 50 mcg by mouth daily. clopidogreL (PLAVIX) 0.005 mg/mL suspension 12/22/2023 -- 11/25/23 -- Take 75 mg by mouth once. co-enzyme Q-10 (CO Q-10) 100 mg capsule 12/22/2023 -- -- -- Take 100 mg by mouth daily. diclofenac sodium (VOLTAREN) 75 mg EC tablet Unknown -- 04/24/22 -- Take 75 mg by mouth daily. Notes: Not taking estradioL (VAGIFEM) 10 mcg vaginal tablet Unknown -- 01/03/23 -- 10 mcg by other route daily. Lactobacillus rhamnosus GG (CULTURELLE) 10 billion cell capsule 12/22/2023 -- 05/05/17 -- Take 1 capsule by mouth daily. loratadine (CLARITIN) 10 mg tablet -- Self 05/15/23 -- Take 10 mg by mouth daily. Notes: Not taking losartan (COZAAR) 50 mg tablet 12/21/2023 -- 05/05/17 -- Take 50 mg by mouth at bedtime. oxyCODONE (ROXICODONE) 5 mg immediate release tablet 12/21/2023 -- 11/26/23 -- Take 1 tablet by mouth at bedtime. rosuvastatin calcium (ROSUVASTATIN ORAL) 12/21/2023 -- 11/25/23 -- Take 20 mg by mouth daily. Yuvafem 10 mcg vaginal tablet 12/21/2023 -- 04/06/21 -- Insert 10 mcg into the vagina 3 (three) times a week. Notes: M,W,F documented in this encounter H&P Notes * Queta Quinn M.D. - 12/23/2023 12:18 PM CDT Images from the original note were not included. SUBJECTIVE CHIEF COMPLAINT / REASON FOR VISIT Patient is a 83 y.o. year old female who presents for the evaluation of recurrent stroke HISTORY OF PRESENT ILLNESS Patient had a left ocular migraine on November 20, 2023 followed by left arm weakness. She was initially seen in a local ER and CT negative. She was discharged without any medications. On November 23 or she returned to a local ER with left arm numbness as well as face numbness.. This time an MRI scan was done showing a right precentral gyrus infarction and a chronic left postcentral gyrus infarction. TTE was negative. CT angiogram was reportedly negative. She was started on dual antiplatelet therapy. She was compliant with the dual antiplatelet therapy and on 12/17/2023 had left lower extremity weakness in her left arm seemed worse. CT CT angiogram were again negative. She was kept on dual antiplatelet therapy. She continued to have difficulty walking and managing at home. She was thus brought to [facility] on 12/21/2023. In the ER MRI brain showed an acute stroke in the right centrum semiovale. MR angiogram head and neck were performed and there was no evidence of an abnormal plaque in the right ICA. She was admitted for further evaluation and treatment Today she feels better than yesterday. Past Medical History Past Medical History: Diagnosis Date Arthritis Cataract Elevated Cholesterol Fibromyalgia Gastroesophageal Reflux Disease NOS Hyperlipidemia Hypertension NOS on meds Malignant Primary Neoplasm (Unknown Site) Unspecified (HCC) skin cancer, melanoma Other Injury Of Unspecified Body Region Personal History Unintended Awareness Under General Anesthesia Stroke (HCC) 12/22/2023 Social History: . Lives with in [facility]. Tobacco: reports that she has never smoked. She has never used smokeless tobacco. Alcohol: reports current alcohol use of about 7.0 standard drinks of alcohol per week. Drugs: reports no history of drug use. OBJECTIVE Patient has mild left drift in both the upper and lower extremity. She has left distal finger extensor and interossei weakness No facial weakness. Data Review Echo Transesophageal (GERA) Result Date: [...] chronic left- sided infarcts are again seen. CBC: Lab Results Component Value Date WBC 5.3 12/22/2023 HGB 13.4 12/22/2023 HCT 40.2 12/22/2023 MCV 94.6 12/22/2023 PLT 246 12/22/2023 Lipids 12/22/2023 03/05/2023 11:44 AM 11:49 AM CHOL 145 182 TRIG 126 169 HDL 51 50 LDLCALC 72 -- TTLCHOLHDLRT -- 3.64 Lab Results Component Value Date HGBA1C 5.7 (H) 12/22/2023 Lab Results Component Value Date NA 142 12/22/2023 CL 106 12/22/2023 CREATININE 0.81 12/22/2023 EGFR 72 12/22/2023 BUN 17 12/22/2023 ANIONGAP 13 12/22/2023 GLUCOSE 119 12/22/2023 CALCIUM 9.4 12/22/2023 ASSESSMENT / PLAN #1 Right hemispheric watershed ischemic stroke #2 Mild atherosclerotic plaque right cervical and cavernous carotid # History of Hypertension # History of Hyperlipidemia Patient has evidence of an acute right hemispheric infarction in a watershed like location. She hashad recurrent events in the same vascular territory over the last month. It is difficult to say what is new and different compared to prior MRIs as we do not have prior CT or MRIs. Nonetheless, she does have some mild atherosclerotic plaque in the right carotid bifurcation and the right carotid cavernous segment that may represent non stenotic plaque rupture. She also has significant aortic arch athero. These may be the etiology. I can not completely rule out paroxysmal atrial fibrillation. Why she had recurrent events while on aspirin and Plavix may be because she is a non metabolizer ofPlavix. We could either simply switch her to ticagrelor and aspirin or check the CYP 2 C 19 gene. - Diagnostic Studies: 30 day heart monitor - Antithrombotic: Aspirin 81 mg Brilinta 90 mg b.i.d. - Risk factors: Vascular risk factor goals for cerebral ischemia include: BP<130/80, LDL<70mg/dl If atherosclerotic stroke and beginning LDL >100mg/dl, normoglycemia, no tobacco, normal BMI (<25). - Functional Impairment: Physical medicine rehabilitation to see * Brice Lord D - 12/22/2023 1:09 PM CDT Cerebrovascular Neurology Admission Note SUBJECTIVE CHIEF COMPLAINT L-hemiparesis HISTORY OF PRESENT ILLNESS: Ms. Latonya Gordon is a 83 y.o. female with medical comorbidities significant for HTN, HLD, chronic back pain and recent RMCA territory infarcts (November 2023) who was seen in the ED for worsening Lhemiparesis. 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 She describes these migraines as lasting no more than 10 minutes, relieved by lying down and sometimes occurring in the R side. Furthermore, she experiences fluttery vision which she describes a zig-zag pattern in her vision. This time the migraine did not resolve within 10minutes and she noticed L arm and hand tingling, numbness and weakness that got worse overtime. On 11/20 Latonya went to [facility] and had a CT scan which did not identify a stroke. She was discharged home the same day but her symptoms did not improve. On 11/24, Ms. Gordon described her arm going numb suddenly while having lunch. She also describes face numbness on her left tongue and cheek that intermittently resolved. The same day she had an appointment with her family doctor, who arranged emergency transportation to [facility]'s ED. She was managed at [place] for 22 hors during which time her L, upper extremity hemiparesis recovered almost back to normal. On 12/16, noted weakness and numbness in her L lower extremity when exiting her vehicle. She describes her movement as her leg dragging on the ground. At this point the L upper extremity was mostly back to baseline with mild numbness. The numbness in her face occurred intermittently. Following this event she went to [facility]'s ED. After being evaluated by [facility] ED, she was discharged home. She describes being able to walk with a cane. Over the following the symptoms in her left lower extremity worsened. On 12/20, her left lower extremity felt so weak and numb that she could not walk from her bed to herbathroom. On 12/21, she arrived to [place] ED for workup and management. Notable in her past medical history is a history of chronic back and neck pain, previously well managed on diclofenac which was discontinued and replaces with high dose ASA. Her current pain medication regime is does not provide full symptomatic relief and she requests that the team help her control her pain while in the hospital. Review of Systems: ROS as stated in the HPI, all other systems were reviewed and are negative PAST MEDICAL/SURGICAL HISTORY Large melanoma near L achilles tendon s/p surgical excision. She reports neuropathy isolated to herleft foot and which she feels is unrelated to her L lower extremity weakness and numbness. A couple plastic surgeries. 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 Tobacco: None Alcohol: 1 glass of wine with dinner Drugs: None FAMILY HISTORY Her son had an OR at 60. OBJECTIVE Temperature: [36.5 ??C-37.1 ??C] 36.5 ??C Heart Rate: [66-73] 73 Resp Rate: [12-23] 20 Blood Pressure: (128-155)/(52-73) 139/52 SpO2: [92 %-99 %] 97 % Pulse Rate: [65-75] 66 Physical Exam: Constitutional: well-developed, well-nourished, resting comfortably in bed Lungs: Breathing comfortably on room air. Clear to auscultation bilaterally. Skin: No rash on exposed skin. Neurologic exam: Refer to Dr. Ritchie Cosby's note for full neuro exam. Abnormal neuro exam included diminished sensation on face over the V2 and V3 region on the left face compared to the right. She also had diminished sensation on the left lower extremity compared to the right. Additionally, the patient's left upper and lower extremity had decreased strength compared to the right side. NIH Stroke Scale Refer to Dr. Ritchie Cosby's note for NIH stroke scale scoring. MRA Head and Neck Interval R MCA territory infarcts. Atherosclerotic plaque both cavernous ICAs without substantial stenosis. Narrowing of the origin of the right ECA and mild (25-30%) narrowing of the ICA just distal to the bifurcation. On the left, there is mild narrowing of the distal CCA without substantial narrowing ofthe ICA or ECA. Mild to moderate stenosis at the origin of the right vertebral artery. ASSESSMENT / PLAN Ms. Latonya Gordon is a 83 y.o. female with stroke risk factors including HTN, HLD, chronic painand R MCA territory infarcts (November 2023) who is hospitalized on the cerebrovascular neurology service for workup and management of left-sided hemiparesis. #1 Acute on subacute worsening L-sided hemiparesis #2 History of Acute Ischemic Stroke R MCA territory including R precentral gyrus, cardioembolic cause suspected Based on the patients History and Physical exam, we hypothesize that the patient's stroke has a cardioembolic origin given her CV risk factors. The intermittent nature of the patient's symptoms raise concerns for a carotid artery embolic events. The MRA neck finds that the R ICA does have atherosclerotic plaques but without substantial stenosis which lowers suspicion for this etiology. #3 HTN #4 HLD HbA1c 5.7%, fasting lipid panel- LDL 72, TSH - WNL at 3.1. We will keep the patient on her current dose of Rosuvastatin (20 mg) and aim to keep her SBP < 180. #5 Chronic pain The patient suffers from chronic neck pain previously controlled by diclofenac which was recently changed to high dose ASA. She also uses nightly Oxycodone for pain control. This poses risks of GI bleeding so we will decrease her ASA dose by half and add lidocaine patches, topical analgesics and NSAIDs. PLAN: -GERA to assess for cardiac abnormalities leading to thrombi formation -Reduce ASA to 325 mg (start 12/22/23) -Begin lidocaine patches + acetaminophen 650 mg Q6H (start 12/22/23) + topical analgesic + nightly oxycodone for back/neck pain management -PT/OT to assess functional status (Refer to Dr. Ritchie Cosby's note for full, updated plan). Please do not hesitate to page the Cerebrovascular Neurology Service pager at [phone] with any questions or concerns. [facility] Stroke Neurology Service Services Host: Dr. Amrita Lomas Stroke Documentation * Ritchie Cosby M.D. - 12/22/2023 9:31 AM CDT Images from the original note were not included. Cerebrovascular Neurology Admission Note SUBJECTIVE CHIEF COMPLAINT Left side weakness HISTORY OF PRESENT ILLNESS: Ms. Latonya Gordon is a 83 y.o. female with a history of HTN, HLD, chronic neck pain, h/o left leg melanoma, and recent R MCA territory infarcts (November 2023) who was seen in the ED for worsening Lhemiparesis. Please note that she also was evaluated in an outside ED 12/16 for an episode of left-sided numbness and tingling of the face, arm, and leg. Patient reports that on 11/19, she began having the onset of a ???ocular migraine?? . This is her typical headache which she should lasted around 10 minutes and associated with visual symptoms such as zigzagging or fluttering in visual field. Shortly after the onset of her headache, she began endorsing left upper extremity numbness, tingling, heaviness. Reportedly she went to local emergency roomfor an evaluation and and a CT head was obtained. She was told ???no stroke?? and discharged home. From 11/19 through 11/24 - her left upper extremity remained weak, but antigravity, and not plegic. On 11/24, while she was enjoying lunch, she had sudden worsening of LUE weakness. She reported it as , as if her left arm became completely plegic. It was not antigravity. She later went to herfamily physician's appointment and was told to go to local ED for an evaluation. She was admitted at [facility] the same day and underwent a stroke evaluation. A MRI report from 11/26 showed acute right precentral gyrus cortical infarction, multiple small foci of diffusion restriction in the right frontal deep white matter and parietal cortex representing acute infarction. Chronic left post central gyrus, parietal and deep white matter infarctions. Reportedly, she had a TTE that was normal. Patient was discharged to home on DAPT. Since discharge, from 11/25 through 12/16, she had gradual improvement of the left upper extremity strength. Before her next incident on 12/16, patient reports that her left arm felt ???almost back to normal?? . On 12/16, we will getting out of a car, patient had sudden onset of left leg weakness. She reportedher left leg ???gave out?? and she would sudden onset of numbness and heaviness. She also endorsedsudden worsening of LUE weakness. She was dragging her left leg. She also had intermittent left lower face and left tongue numbness. Her left leg weakness progressively worsened over next 2 days as she was unable to walk from her bed to the bathroom. She finally came in for an evaluation today where MRI confirmed new right MCA territory stroke was admitted to the stroke Service for further evaluation. Of note patient is taking aspirin 650 mg prescribed by her PCP for chronic neck pain. She is also compliant with taking her DAPT daily without missing a dose. Review of Systems: ROS as stated in the HPI, all other systems were reviewed and are negative PAST MEDICAL/SURGICAL HISTORY As above SOCIAL HISTORY Denies history of tobacco or drug use. Drinks 1 glass of wine per night. 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 FAMILY HISTORY Reports her 60-year-old son had a STEMI, no family history of stroke. OBJECTIVE Temperature: [37.1 ??C] 37.1 ??C Heart Rate: [66-70] 70 Resp Rate: [15-23] 23 Blood Pressure: (134-155)/(57-73) 152/70 SpO2: [92 %-98 %] 94 % Pulse Rate: [65-75] 75 Physical Exam: Constitutional: well-developed, well-nourished, resting comfortably in bed Lungs: Breathing comfortably on room air. Clear to auscultation bilaterally. Cardiac: regular rate and rhythm, no murmur Abdomen: Soft, non-tender, non-distended, normoactive bowel sounds Skin: No rash on exposed skin. Neurologic exam: Mental status: Alert. Oriented to person, place, and time. Can state month and age accurately. Ableto open and close eyes and open and close hand on command. Speech/Language: Speech clear. Language is intact including [...] soft palate, sternocleidomastoid muscles are strong. Strength: (L, R) arm abduction/deltoids (-1,0), arm flexion/biceps (-1,0) , arm extension/triceps (0,0), wrist extension (-1,0), wrist flexion (-1,0), finger extension (0,0), finger flexion (0,0), interosseoi muscles (-1,0). Hip flexion (-1,0), knee flexion (-1,0), knee extension (-1,0), dorsiflexion (0,0), plantarflexion (0,0). Reflexes: (L, R) Reflexes are +1 throughout, plantar reflexes plantar-plantar. Sensation: Normal sensation to light touch and pin prick in bilateral upper and lower extremities. There is no extinction to bilateral sensory stimuli. Coordination: Normal dqjead-buir-ahmrlp bilaterally. Normal tdbq-tg-pzci bilaterally. Gait: Deferred. Neuro exam notable for: Left hemiparesis without neglect NIH Stroke Scale 1A. LOC: 0=alert; keenly responsive 1B. Questions: 0=answers both questions correctly 1C. Commands: 0=Performs both tasks correctly 2. Best Gaze: 0=normal 3. Visual: 0=No visual loss 4. Facial Palsy: 0=Normal symmetric movement 5A. Left Arm Motor: 1=Drift, limb holds 90 (or 45) degrees but drifts down before full 10 seconds: does not hit bed 5B. Right Arm Motor: 0=No drift, limb holds 90 (or 45) degrees for full 10 seconds 6A. Left Leg Motor: 1=Drift, leg falls by the end of the 5-second period but does not hit the bed 6B. Right Leg Motor: 0=No drift, leg holds 30 degrees for full 5 seconds 7. Limb Ataxia: 0=Absent 8. Sensory: 0=Normal; no sensory loss 9. Best Language:0=No aphasia, normal 10. Dysarthria: 0=Normal 11. Extinction: 0=No abnormality TOTAL SCORE: 2 Diagnostics: I have reviewed the labs, ECG, xray, diagnostics, and echo from admission. MR brain w/o contrast 12/22/23: MRA head and neck: IMPRESSION: 1. Multiple small acute subacute infarcts [...] the cervical and intracranial arteries as described. ASSESSMENT / PLAN Ms. Latonya Gordon is a 83 y.o. female with a history of HTN, HLD, chronic pain, and recent R MCA territory infarcts (November 2023) who was seen in the ED for worsening L hemiparesis, found to have acute and subacute right MCA territory stroke. Stroke etiology is still unclear but include symptomatic carotid stenosis and cardioembolic. Patient had CT angiogram and MR angiogram of head and neck which showed 25-30% stenosis of right proximal ICA with a thin rim of peripheral calcification. I have low suspicion this is symptomatic carotid given no evidence of significant stenosis or hemodynamic compromising plaque with hemorrhagic features. Due to concern for cardioembolic stroke, we will complete her workup with a trans esophageal echocardiogram tomorrow. I have also obtained stroke labs was reviewed a slightly elevated hemoglobin A1cat 5.7% and LDL 72. We appreciate evaluation by our brain rehab team. # Acute on subacute worsening L. hemiparesis # History of recent R MCA territory infarcts, including R precentral gyrus # HTN # HLD # Chronic pain Workup: - Neuroimaging - Noncontrast CT head (OSH) 12/16 showed No acute hemorrhage or large territory infarct. 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 - CT angio head and neck obtained at OSH 12/16 reviewed, mild atherosclerotic disease at bilateral carotid bulb, no significant degree of stenosis seen on my review. - MRI brain without contrast showed multiple small acute subacute infarcts for a frontal lobe. - MRA head and neck showed approximately 25-30% stenosis right proximal ICA, carotid plaque protocol limited by motion showed predominantly non calcified atherosclerotic plaque in right proximal ICA region with a thin rim of peripheral calcifications; no evidence of intra plaque hemorrhage. - Baseline ECG: pending completion - Stroke risk factor work up: - HbA1c 5.7%, fasting lipid panel- LDL 72, TSH - WNL at 3.1 - Reportedly she had a 14 day Holter monitor study which was reportedly normal by patient (we do not have this report available for review at this time) [ ] GERA ordered, NPO MN Management: - Neuro Checks per Unit protocol => stat noncontrast head CT for change in exam - Cardiac Monitoring for 24 hours - Monitor vitals per unit routine protocol - Blood Pressure goal: SBP <180 (out of 24 hour post stroke period for permissive hypertension) - BG Goal: 140-180 - Antithrombotics: Continued DAPT with aspirin 81 mg and Plavix 75 mg daily - Statin: Continue home rosuvastatin 20 mg daily - Passed bedside swallow, diet initiated - Brain Rehab Team consulted, appreciate recs - Speech Pathology not consulted due to no deficit - SWS consulted for assistance with d/c planning, appreciate recs # Chronic neck pain - acetaminophen 650 mg q.6 hours as needed - lidocaine patch - triple cream - nightly oxycodone, home dose 5 mg q.h.s. Diet: Regular Diet Tubes/lines: PIV VTE prophylaxis: heparin Code status: Prior Surrogate Decision Maker: Spouse, Vincent Disposition: Uncertain Please do not hesitate to page the Cerebrovascular Neurology Service pager at [phone] with any questions or concerns. [facility] Stroke Neurology Service Services Host: Dr. Cheyenne Cosby M.D. STROKE DOCUMENTATION: Stroke Center Measures: Did this patient have a possible stroke/TIA/hemorrhage?: Yes Type of stroke: Ischemic stroke/Transient ischemic attack Time NIHSS completed: 12/22/2023 12:30 PM Admission NIHSS total score: 2 Time patient last known well: 12/16/2023 11:59 PM Onset of symptoms - time: 12/17/2023 12:00 PM Patient received IV thrombolytic?: No Reason not a candidate: Symptom onset beyond time window Intra-arterial candidate for intervention?: No Reason not a candidate: Not indicated because symptom onset beyond time window Patient admitted solely for an elective carotid intervention: No Antithrombotic started on admission: Started on admission Dysphagia screen performed before oral intake or any p.o. medication given: Performed and patient passed, oral intake initiated Screen time completed: 12/22/2023 11:00 AM Prestroke modified Hermon Score (mRS): 0 - No symptoms. Physical Medicine (PMR) consulted: Consulted and will evaluate the patient Speech therapy consulted to evaluate patient: Not consulted because no speech/language deficits Pharmacologic VTE prophylaxis: instituted Tobacco use: Does not use tobacco Fasting lipids performed: Will be performed in the morning Patient on lipid-lowering agent prior to arrival?: Yes Relevant cerebrovascular risk factors: Hypertension and hyperlipidemia documented in this encounter Consult Notes * Ruthie Tovar M.S., O.T., MOT - 12/23/2023 1:47 PM CDT Occupational Therapy Acute Hospital Inpatient Evaluation/Treatment SUBJECTIVE Referring/Attending Provider: Queta Quinn M.D. Patient's Name: Latonya Gordon Reason for Referral: OT Eval & Treat (Brain Consult) Medical Diagnosis: 1. Stroke (HCC) 2. Abnormal Gait Non Orthopedic [R26.89] 3. Lack Of Coordination [R27.9] 4. Abnormal Posture [R29.3] Onset Date: 12/22/23 Payor: [facility] / Plan: [facility] PPO / Product Type: PPO [...] EXTREMITY WOUND, VAC dressing; Surgeon: Marysol Petty M.B.BMarthaSMartha; Location: [facility] OR HYSTERECTOMY INNER EAR [...] worse overtime. On 11/21/23, pt went to [facility] and had a CT scan which did [...] family doctor, who arranged emergency transportation to [facility]'s ED. [place] which [place] her L [...] termittently. Following this event she went to [facility]'s ED. After being evaluated by [facility] ED, she was discharged home. She describes being able to walk with a cane. Over the following day the symptoms in her left lower extremity worsened. On 12/21/23, her left lower extremity felt so weak and numb that she could not walk from her bed to her bathroom. On 12/22/23, [place] [facility] [place] and management. Stroke etiology is still unclear but include symptomatic carotid stenosis and cardioembolic. Patient had CT angiogram and MR angiogram of head and neck which showed 25-30% stenosis of right proximal ICA with a thin rim of peripheral calcification. See Hospital Admission History and Physical for full history of present illness. Precautions Other Precautions: Fall Risk. L hemiparesis (leg>arm). Patient/Caregiver Goals: Return home safely with assistance of . Prior Function/Occupational Profile Dominant Hand: Right Lives With: Spouse Receives Help From: Family ADL Assistance: Independent IADL/Homemaking Assistance: Independent IADL/Homemaking Assistance Comments: Patient stated they have a service line bus cleaner come 2x per month and her and her split finances. Notices difficulty with keyboarding Driving: Independent Driving Comments: Patient noted she had just returned to driving after her previous stroke in November, however, Vincent completes most of driving Occupational Role: Retired (from working in the [employer] Prior Mobility/Functional Transfers Level of Clarence: Independent (without gait aid.) Gait Devices/Wheelchair Used: [...] taking baths Home Equipment Home Adaptive Equipment: Outbound Sales Professional, Long-handled shoe horn, Sock aid Gait Devices Owned: Four-wheeled walker, Cane Bathroom Equipment: Shower chair without back (Shower bench. Grab bars.) Fall Risk (65 and older) Fall in the last 12 months: No Fall Risk Comments: Instability. L lower extremity weakness. OBJECTIVE Pain: Patient endorsed pain in left hip pain with figure 4 seated edge of bed, however, did not quantify it. Vitals: Blood pressure assessed with patient seated edge of bed. BP reads 137/75. Cognition Cognitive assessment method: Therapist observations Arousal/Alertness: Appropriate responses to stimuli Attention: Addressed, no concerns noted Orientation: Oriented X4 Following Commands: One Step Commands One Step Commands: Follows one step commands consistently Safety/Judgment: Impairments noted Safety/Judgment Comments: Patient demos limited insight into impaired midline Balance Static Sitting-Balance: Poor (Requires assistance to maintain balance) Dynamic Sitting-Balance: Poor (Requires assistance to maintain balance) Static Standing-Balance: Poor (Requires assistance to maintain balance) Dynamic Standing-Balance: Poor (Requires assistance to maintain balance) Coordination Overall Coordination: Coordination impairments observed, see details below (comment) Finger to Nose Test (Dysmetria): Impaired (LUE impairments noted) Activity Tolerance Endurance: Tolerates 10-20 minutes of activity Activity Tolerance Comments: Patient notes dizziness throughout duration of session Baseline Vision/Correction: Does not wear glasses Ocular Motility/Range of Motion Assessment Right Eye: Addressed, no concerns noted Ocular Motility/Range of Motion Assessment Left Eye: Addressed, no concerns noted Vision Assessment Comments: With convergence, left eye did not adduct Light Touch: No deficits (Pt reports sensation intact to light touch throughout.) Sharp/Dull: Not tested Proprioception: No deficits Inattention/Neglect: No deficits observed Current Hearing Function: Hard of hearing - functional with hearing aids Motor Planning: Appears intact ROM - Upper Extremity Screen: Addressed, no concerns noted ROM - Upper Extremity Screen Comments: Patient demos bilateral upper extremity active range of motion within functional limits with cues. ROM assessment completed with head of bed at 45 degrees Strength - Upper Extremity Screen: Addressed, no concerns noted Strength - Upper Extremity Screen Comments: Grossly 3+ - 4/5 strength specific to left upper extremity Gross Hand Function Right Hand Gross Grasp: Functional Left Hand Gross Grasp: Impairment noted Right Hand Coordination: Functional Left Hand Coordination: Impairment noted Home management training: LE Dressing LE Dressing Location: Seated on edge of bed LE Dressing Delivery: Assessed, Therapist Assisted, Facilitated LE Dressing Items Included: Socks LE Dressing Level of Assistance: Moderate assistance LE Dressing Comments: Therapist holding bilateral lower extremities in figure 4 position during donning/doffing of socks. Patient demos greater difficulty in assuming and maintaining figure 4 position with left lower extremity in comparison to right lower extremity. Bed Mobility - Supine to Sit # of Assistants: 1 Level of Assistance: Maximal assistance Device: Bed rail, Head of bed elevated Cuing: Verbal, Tactile, Visual Bed Mobility - Sit to Supine # of Assistants: 1 Level of Assistance: Maximal assistance Device: Bed rail, Head of bed elevated Cuing: Verbal, Tactile, Visual Sit to Stand Transfers # of Assistants: 1 Transfer Surface: Bed Transfer Equipment: Gait belt, Bed rail Level of Assistance: Moderate assistance Assessment/Delivery: Assessed, Therapist assisted, Facilitated Comments: Therapist in moderate assistance due to current balance deficits Briefly instructed patient in completion of hand squeezes and isolated digit pinches using blue foam block with continued focus on bilateral upper extremity coordination exercises in sessions to come. Patient/Family Education: Role of OT, rationale of intervention, assistance needed, use of LUE as able for functional tasks At the end of today's therapy session patient was left in bed with an appropriate call light withinreach. Patient's needs and questions addressed during today's session. Assessment Ms. Latonya Gordon is a 83 y.o. female with a history of HTN, HLD, chronic pain, and recent R MCA territory infarcts (November 2023) who was seen in the ED for worsening L hemiparesis, found to have acute and subacute right MCA territory stroke on 12/21. Prior to hospitalization, patient independentwith activities of daily living and instrumental activities of daily living, lives with her husbandin a main level home with 2 steps to enter. Presents with L hemiplegia, impaired midline, limited insight into deficits, and decreased activity tolerance. Demonstrates bilateral upper extremity active range of motion within functional limits with lag of left upper extremity and limited left upper extremity strength. At this time, patient requiring grossly maximal assistance with bed mobility, moderate assistance in completion of sit to stands with use of bed rail, and moderate assistance in completion of lower body dressing. Patient requiring maximal verbal cues to maintain midline seated edge of bed. Patient is below functional baseline and would benefit from ongoing skilled OT services toaddress listed deficits and support improved independence and safety in completion of daily occupation. From the Occupational Therapist's perspective, the patient is an inpatient rehabilitation candidatedue to requiring ongoing physical assistance with skilled need for activities of daily living and/or cognition. Will formally discuss at next PMR team rounds and communicate with primary service acchaydee peres. Rehab Potential: Ms. Gordon has good potential to achieve established occupational therapy goals within the time frame outlined below. Barriers to Discharge Home: Current functional status, Safety concerns Comorbid Conditions: Cerebrovascular accident, Other (Comment) (Hypertension, hyperlipidemia) Personal Factors: Age, Balance impairment, Hearing impairment, Visual impairment Discharge Therapy Needs - OT: Ongoing skilled occupational therapy Level of Care Needed - OT: Assistance with toileting, Assistance with toilet/shower transfers, Assistance with medication set up/administration, Assistance with showering/bathing, Assistance with financial representative, Assistance with meal preparation, Assistance with dressing, Assistance with eating/feeding, Assistance with transportation, Assistance with housekeeping, Assistance with shopping, Physical assistance needed Skilled therapy can include occupational therapy provided by home health, outpatient clinic, or a post-acute facility. The location of these services is determined by the patient's care team in partnership with patient/family. Recommended Adaptive Equipment - OT: Shower chair with back, Other (Comment) (Family discussing rail on R side of entry steps) Functional Goals and Timeframes: OT Goal #1: Patient will complete lower body dressing seated edge of bed with no more than minimal assistance to support increased independence in completion of activities of daily living. OT Goal #1 Status: Progressing OT Goal #2: Patient will complete functional ambulating toileting transfer with moderate assistanceand use of least restrictive gait aid to support safety and independence in completion of daily occupations. OT Goal #2 Status: Progressing OT Goal #3: Patient will demonstrate independent recall and use of hemidressing techniques to support independence upon homegoing. OT Goal #3 Status: Progressing OT Goal #4: Patient and family to demonstrate understanding of needed assist level and equipment recommendations in support of safe homegoing. OT Goal #4 Status: Progressing Progress: Progressing toward goals Plan Patient agrees with the plan of care and goals. Treatment Plan: OT Frequency: 5 times per week OT Amount: 1 visit per day OT Inpatient Duration : Until goals are met or hospital discharge Plan: Plan of care initiated Treatment interventions may include: Treatment Interventions: Therapeutic exercise, Therapeutic functional activity, Neuromuscular re-education, Self-care/home management, Cognitive skills training, Therapeutic modalities as needed Occupational Profile and History review: Expanded Performance Deficits: at least 5 performance deficits Evaluation Complexity: Moderate Time Spent with Patient: Evaluations OT Eval - Mod Complexity: 25 min Therapeutic Interventions Home Management Training (min): 10 min Time Tracking Total Timed Units (min): 10 min Total Treatment Time (min): 35 min Ruthie Tovar M.S., O.T., MOT * Keyon Page V., R.N. - 12/23/2023 12:49 PM CDTAssociated Order(s): IP CONSULT TO CARE MANAGEMENT; IP CONSULT TO CARE MANAGEMENT Discharge Planning Assessment SUBJECTIVE Assessment Information Referral Source: Early Screen for Discharge Planning Referral Reason: Stroke, Discharge Planning Primary Language: Guamanian [employer] Operator Services Used: No Person(s) present during interview: Person(s) Present During Interview: patient, spouse, Vincent, and child, Jacques History of Present Illness #1 Stroke (HCC) The patient is hospitalized at [facility] on [address] in room 291. Social History Marital Status: Family / Household: Lives with spouse; 3 adult children Support System: spouse, children, family members, and friends/neighbors Finance/Insurance Primary insurance: [facility] PPO Secondary insurance: N/A benefits: No Advance Directives Legal Decision Maker: Self Advance Directives: Advanced Care Plan Advance Directives Status: None on file, Not Activated OBJECTIVE Baseline Functional Status Baseline Activities of Daily Living Mobility: Modified independent, Requires aide of device Dressing: Independent Feeding: Independent Bathing: Independent Grooming: Independent Toileting: Independent Behavior: Appropriate, Calm, Cooperative Communication: Talks, Understands speaking, Understands Guamanian Shopping: Independent Medication Management: Independent Housekeeping: Independent Meal Prep: Independent Assistive Devices: Cane, Walker - front wheeled, Cellphone, Hearing aid(s) Services/Resources: Housekeeping, Lawn care, Snow removal Transportation: Independent to drive Managing Finances: Independent Baseline Services/Resources Primary care clinic and provider: ELSEWHERE, PCP Services/Resources: Housekeeping, Lawn care, Snow removal Additional Resources: N/A Anticipated Needs Functional Status: Transportation use (drive car, use taxi/bus), Mobility, Housekeeping Assistive Devices: Walker - front wheeled Anticipated Modifications to the Patient's Home: None Transportation Needs: Support from family Does the patient need discharge transport arranged?: No Anticipated Discharge Destination: Rehab Facility ASSESSMENT / PLAN Assessment: The poker room manager met with Latonya Gordon to discuss her current hospitalization and home going needs. The patient was accompanied by , Vincent and son, Jacques . The patient was a reliable historian. The role of poker room manager was reviewed. The patient, patient's , and patient's son reviewed her prior level of care and support system. The patient receives support from her , children, and extended family. The patient described her living environment as a single level home with stairs to enter with rails. Housekeeping, grocery shopping, meal prep, and other household responsibilities have previously been completed by patient and patient's . poker room manager discussed the patient's potential needs at dismissal based on their home setting, previous needs and responsibilities, homebound status, and relevant assessments with the patient, patient's , and patient's son. The patient will besafe and supported to return home with spouse/S.O. when medically ready. Support will be provided by spouse, children, and extended family. The patient, patient's , and patient's son demonstrated understanding when discussing her home going plans and anticipated needs. The patient was assessed for readiness, willingness, and ability to engage in self-management activities. The patient has the following social supports available to them: spouse, children, and friends The family was also assessed for readiness, willingness, and ability to provide or support self-management activities including skills, capacities, and resources needed. What care/support can you provide to the patient if needed? Spouse- retired, able to provide support as needed, transportation; 3 adult children- live locally to the patient, able to provide support as needed Are there any barriers you have to providing this care if needed or any concerns you have regardingthis? No Do you anticipate needing any additional support? Yes Do you have financial concerns? (i.e. time away from work) No Do you have resources for transportation for follow up appointments? Yes The following barriers were identified: none. Patient and family are in agreement with recommended lifestyle changes. Patient's current formal and informal support systems were assessed. Assessment with the Patient and Family has identified thatthe following services may be needed: Acute rehabilitation and Durable medical equipment. Other than those services/resources listed previously no additional services are needed at this time. A folder of applicable stroke/TBI resources was given to the Patient and Family by the Journeyman Sheet Metal Worker. Patient and Family were receptive to the information provided and discussed and addressed all questions The folder of resources includes: Recovering From a Stroke ([id number]), Stroke Website Resources ([id number]), Stroke Self-Care Plan (RG9856-57), General Local Resources for Patients with Stroke (OF9354-01), Emotional Response to Stroke ([id number]) and Brain Injury [place] pamphlet. At this time, the care team anticipates the patient will potentially require the following new service(s) to be set up: acute rehab. poker room manager provided education on the various levels of therapy post hospital stay including inpatient rehabilitation, skilled placement, home health care and outpatient. Patient was informed she may be a good candidate for inpatient rehabilitation and has identified a preference to stay here in town to be admitted to [facility]. Patient also requested an in-network list for inpatient rehabilitation facilities near the [facility] as an alternative option. After reviewing the patient's chart and meeting with the patient, patient's , and patient's son, the poker room manager deemed the LACE+/readmission questions were not necessary. The patient, patient's , and patient's son reports understanding that she will dismiss from the hospital when medically stable. Pending hospital course and medical readiness, no barriers to dismissal have been identified at this time. Plan: The patient, patient's , and patient's son agrees with the following plan. Patient's anticipated discharge disposition is: IRF- pending therapy evaluations Transportation upon dismissal will be provided by family--Vincent . poker room manager recommended reaching out to family, friends, and neighbors for assistance. poker room manager provided information regarding the dismissal process. poker room manager placed or requested the following hospital-based consult orders and/or referrals: PT/OT. poker room manager will continue to assess for homegoing needs with the interdisciplinary team. poker room manager encouraged the patient to reach out with any questions/concerns. Signed by: Keyon Page R.N. 12/23/2023 * Rosanna Shaffer PCora, D.P.T. - 12/23/2023 11:59 AM CDT Physical Therapy Acute Hospital Inpatient Evaluation/Treatment SUBJECTIVE Referring/Attending Provider: Queta Quinn M.D. Patient's Name: Latonya Gordon Reason for Referral: PT Eval & Treat (Brain Consult) Medical Diagnosis: 1. Stroke (HCC) 2. Abnormal Gait Non Orthopedic [R26.89] Onset Date: 12/22/23 Payor: [facility] / Plan: [employer] [place] MEDICARE PLAN [...] EXTREMITY WOUND, VAC dressing; Surgeon: Marysol Petty M.B.B.SMartha; Location: [facility] OR HYSTERECTOMY INNER EAR [...] worse overtime. On 11/21/23, pt went to [facility] and had a CT scan which did [...] family doctor, who arranged emergency transportation to [facility]'s [place]. [place] which [place] L [...] termittently. Following this event she went to [facility]'s ED. After being evaluated by [facility] ED, she was discharged home. She describes being able to walk with a cane. Over the following day the symptoms in her left lower extremity worsened. On 12/21/23, her left lower extremity felt so weak and numb that she could not walk from her bed to her bathroom. On 12/22/23, [place] [place] and management. Stroke etiology is still unclear but include symptomatic carotid stenosis and cardioembolic. Patient had CT angiogram and MR angiogram of head and neck which showed 25-30% stenosis of right proximal ICA with a thin rim of peripheral calcification. See Hospital Admission History and Physical for full history of present illness. Precautions: Fall Risk. L hemiparesis (leg>arm). Patient/Caregiver Goals: Return home safely with assistance of . Patient Comments: Pt willing to participate with PT. Denies pain currently. Reporting hot pack and cream applied to her neck have helped her chronic neck pain. Orientation not formally assessed. Not specific concerns noted. and son present. Prior Function/Occupational Profile Dominant Hand: Right Lives With: Spouse Receives Help From: Family ADL Assistance: Independent IADL/Homemaking Assistance: Independent Driving: Independent Occupational Role: Retired from working in the [employer]. Prior Mobility/Functional Transfers Level of Clarence: Independent without gait aid. Home Living Home Layout: One level home with a basement (rarely uses). All needs can be met on the main level. Home Access: 3 step entry with rail. Home Equipment Home Adaptive Equipment: Outbound Sales Professional Gait Devices Owned: Four-wheeled walker (borrowed from friend), Cane Bathroom Equipment: Shower bench. Grab bars. Fall Risk (65 and older) Fall in the last 12 months: No Fall Risk Comments: Instability. L lower extremity weakness. OBJECTIVE Pain: Denies pain currently. Reporting hot pack and cream applied to her neck have helped her chronic neck pain. Vitals: Not indicated at this time Cognition Arousal/Alertness: Appropriate responses to stimuli Attention: Addressed, no concerns noted Initiation: No difficulty with initiation Orientation: Orientation not formally assessed. Not specific concerns noted. Following Commands: Follows all commands/directions without difficulty Safety/Judgment: No significant concerns during this session. Will continue to assess. Current Hearing Function: Hard of hearing - functional with hearing aids Baseline Vision/Correction: Does not wear glasses Light Touch: Pt reports sensation intact to light touch throughout. Paresthesia Comments: Pt denies numbness and tingling except at her L foot. Some h/o numbness/sensitivity at L foot from melanoma surgery near her achilles tendon. Coordination Rapid Alternating Movements (Dysdiadochokinesia): Eyes Open: Rapid alternating movements at bilateral ankles and R hand fairly good. Mildly increased difficulty at L hand. Tone Assessment: Normal. ROM - Upper Extremity Screen: Within functional limits active range of motion throughout. ROM - Lower Extremity Screen: Within functional limits active range of motion throughout. Strength - Upper Extremity Screen: Fairly functional strength bilaterally. Note slight delay in activation throughout at L arm. Strength - Lower Extremity Screen: Functional strength throughout at both legs supine in testing. Noting L hip stability weakness in stance phase of gait. Static Sitting-Balance: Unsupported sitting balance at the edge of bed good. Dynamic Sitting-Balance: Able to resist minimal perturbations in all directions without loss of balance. Static Standing-Balance: Fair static standing balance. Dynamic Standing-Balance: Poor dynamic standing and ambulation balance. Bed Mobility - Supine to Sit # of Assistants: 1 Level of Assistance: Minimal assistance Device: Head of bed elevated, Bed rail Comments: PT facilitating stability. Increased time needed to adjust and align at the edge of bed. Bed Mobility - Sit to Supine # of Assistants: 1 Level of Assistance: Minimal assistance Device: Head of bed elevated Comments: PT facilitating stability. Sit to Stand Transfers # of Assistants: 1 Transfer Surface: Bed, Toilet/Commode Transfer Equipment: Gait belt Level of Assistance: Moderate assistance Comments: PT facilitating stability and forward weightshift. Stand to Sit Transfers # of Assistants: 1 Transfer Surface: Bed, Toilet/Commode Transfer Equipment: Gait belt Level of Assistance: Moderate assistance Comments: PT facilitating stability, alignment to sitting surface and controlled descend into sitting. Gait Assessment/Training Distance (m): 20' x2 Surface: Even, Smooth/hard Device: Gait belt, Hand hold assist # of Assistants: 1 Level of Assistance: Moderate assistance Assessment of Gait: Ambulating with shortened, but fairly even step lengths. Slowed wayne. Decreased arm swing. Decreased heel strike, but clearing L foot during swing phase. Decreased L lateral and posterior hip stability during stance. Training/Intervention: PT facilitating stability and weightshift. Ambulating short distances in room; no gait aid; hand hold assistance on L. Response: Pt with fair tolerance to short distance gait. Moderate instability. Improved stepping smoothness on L with practice. [facility] BASIC MOBILITY SHORT FORM: 1. Turning from your back to your side while in a flat bed without using bedrails?: A Little 2. Moving from lying on your back to sitting on the side of a flat bed without using bedrails?: A Little 3. Moving to and from a bed to a chair (including a wheelchair)?: A Lot 4. Standing up from a chair using your arms (e.g., wheelchair, or bedside chair)?: A Lot 5. To walk in hospital room?: A Lot 6. Climbing 3-5 steps with a railing?: A Lot [facility] Basic Mobility (V.2) Raw Score: 14 -[facility] Basic Mobility (V.2) Standardized Score: 35.55 Interpretation: 20.1 Average score of those going home 17.9 Average score of those going home with home health 14 Average score of those going to a SNF 13.6 Average score of those going to a IRF 11.5 Average score of those going to a LTAC Therapeutic Functional Activity: Addressing supine to/from sit transfers to her L side; unsupportedsitting balance/endurance; sit to/from stand transfers from bed and toilet surfaces; standing balance, endurance and posture at sink for self-cares; short distance ambulation in room with hand hold assistance on L. Patient/Family Education: Discussed with pt and family re: role of PT, PT plan of care and ongoing PT recommendations. Discussing benefits of acute inpatient rehabilitation. At the end of today's therapy session patient was left in bed with an appropriate call light withinreach and family present. Patient's needs and questions addressed during today's session. Assessment Pt cooperative and participatory. No significant c/o pain currently. Fairly functional range and strength throughout, except do note slight delay in activation throughout L arm and moderate L hip weakness in stance phase of gait. Sensation intact throughout except c/o numbness at L foot (some pre-existing from melanoma procedure near her L achilles). Fairly good coordination at extremities exceptmild difficulty at L hand. She is able to transition to/from the edge of bed with minimal assistance x1; increased time needed. Sit to/from stand transfers performed with moderate assistance x1. She is ambulating short distances in room with moderate hand hold assistance x1 - ambulating with shortened, but fairly even step lengths; slowed wayne; decreased arm swing; decreased heel strike, but clearing L foot during swing phase; impaired L lateral and posterior hip stability during stance. Sheis currently functioning below her baseline status and benefits from ongoing skilled, intensive, shant rological physical therapy to assist with her recovery. From the Physical Therapist's perspective, the patient is an acute inpatient rehabilitation candidate due to requiring ongoing physical assistance with skilled need for activities of daily living and/or cognition. Will formally discuss at next PMR team rounds and communicate with primary service acc ordingly. Rehab Potential: Ms. Gordon has good potential to achieve established physical therapy goals withinthe time frame outlined below. Barriers to Discharge Home: Current functional status, Fall risk, Safety concerns Comorbid Conditions: HTN, HLD, chronic neck pain, h/o left leg melanoma, and recent R MCA territoryinfarcts (November 2023), R SPEEDY. Personal Factors: Balance impairment, Hearing impairment, Needs assistive device, Safety awareness Discharge Therapy Needs - PT: Ongoing skilled physical therapy Level of Care Needed - PT: Physical assistance needed Skilled therapy can include physical therapy provided by home health, outpatient clinic, or a post-acute facility. The location of these services is determined by the patient's care team in partnership with patient/family. Functional Goals and Timeframes: PT Goal #1: Supine to/from sit transfers performed from flat surface without bedrails with supervision. PT Goal #1 Date: 12/30/23 PT Goal #2: Sit to/from stand transfers performed from various surfaces with most appropriate assistive device and contact guard assistance. PT Goal #2 Date: 12/30/23 PT Goal #3: Ambulate 150' on smooth, level surface with most appropriate assistive device and contact guard assistance. PT Goal #3 Date: 12/30/23 PT Goal #4: Ascend/descend 4 steps with one rail and most appropriate assistive device with contactguard assistance. PT Goal #4 Date: 12/30/23 Plan Patient agrees with the plan of care and goals. and son present. Treatment Plan: PT Frequency: 6 times per week PT Amount: 1 visit per day PT Inpatient Duration: Until goals are met or hospital discharge Plan: Plan of care initiated PT Plan Comments: Will continue with bed mobility, transfer training, unsupported sitting/standing balance, neuromuscular reeducation, higher level balance/coordination activities, gait training, safety on stairs and pt/family education. Treatment interventions may include: Treatment/Interventions: Therapeutic exercise, Therapeutic functional activity, Neuromuscular re-education, Gait training, Self-care/home management, Pt/Family Education Clinical Presentation: Evolving Number of Examination elements: 4+ Clinical Decision Making: Moderate complexity clinical decision making Time Spent with Patient Evaluations PT Eval - Mod Complexity: 19 min Therapeutic Interventions Therapeutic Activity (min): 12 min Time Tracking Total Timed Units (min): 12 min Total Treatment Time (min): 31 min Rosanna Shaffer P.T., D.P.T. * Marcelle Santiago M.D. - 12/23/2023 10:45 AM CDTAssociated Order(s): Physician consult - Physical Medicine and Rehabilitation consult ([facility]) SUBJECTIVE Reason for Consult Physician consult - Physical Medicine and Rehabilitation consult ([facility]) Referring Provider: Ritchie Cosby M.D. Reason for Consult: stroke History of Present Illness Ms. Gordon is a 83 y.o. 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 NIHSS [address]/CTA showed small chronic left sided infarcts and chronic small vessel ischemic disease, no large vessel occlusion. MRI/MRA shows multiple acutesubacute infarcts right frontal lobe, right proximal ICA 25-30% stenosis. GERA with no shunt, no left atrial appendage thrombus; no hemodynamically significant valvular heart disease; diffuse moderateimmobile atherosclerosis of descending thoracic aorta and aortic arch, aortic valve strands (degenerative) of low thromboembolic potential. The following portions of the patient's history were reviewed and updated as appropriate: allergies, current medications, family history, medical history, social history, surgical history, psychiatric history, substance abuse history, problem list, labs, diagnostics tests.. I reviewed the pertinentclinical notes in the electronic health record. Review of Systems Pertinent items are noted in HPI. OBJECTIVE Temperature: [36.2 ??C-36.5 ??C] 36.3 ??C Heart Rate: [61-85] 72 Resp Rate: [12-22] 21 Blood Pressure: (113-160)/(51-79) 141/63 SpO2: [91 %-99 %] 94 % Flow Rate (L/min): [2 L/min-4 L/min] 2 L/min Height: [157.5 cm] 157.5 cm Weight: [70.8 kg] 70.8 kg BMI (Calculated): [28.5 kg/m??] 28.5 kg/m?? Physical Exam GENERAL: Alert. No acute distress. HEENT: Normocephalic, atraumatic. Face symmetric, conjugate midline primary gaze, EOMI but difficulty with left convergence, visual crowley appear full, hearing aids in place LUNGS: Unlabored breathing pattern. Normal rate. ABDOMEN: Soft, nontender, nondistended. EXTREMITIES: No swelling or erythema. Right lateral hip tender at the greater trochanteric bursa region. Negative YAEL, FADIR, SLR. No increased pain with passive ROM of right hip. MENTAL STATUS: Grossly oriented with appropriate mood and affect. MOTOR SPEECH: No dysarthria. Normal prosody, phonation, resonation, and articulation. LANGUAGE: Normal, nonaphasic. Follows commands, benefits from repetition. MUSCLE STRENGTH: Mild left upper limb weakness most notable distally at the hand/fingers. Mild leftlower limb weakness, most notable with left hip abduction, left ankle dorsiflexion, left ankle inversion/eversion, and ankle plantarflexion. BALANCE: Impaired sitting balance with tendency to lean to the left and to lean posteriorly - corrects to midline with cues. COORDINATION: Mildly impaired left with Ollie and FNF, foot tapping, and HTS. SENSATION: Grossly intact to light touch. Diagnostics I reviewed the imaging studies and agree with the interpretation as recorded. I reviewed the pertinent laboratory and diagnostic data. ASSESSMENT / PLAN #1 Acute/subacute right frontal strokes #2 Left hemiparesis #3 Right trochanteric bursitis (previous right SPEEDY) #4 History of right MCA territory infarcts November 2023 with good functional recovery #5 Hypertension #6 Hyperlipidemia Discussed the role of PM&R and rehabilitation services in the setting of acute care as it pertains to stroke. Primary team has placed consult orders for PT and OT. She would benefit from ongoing rehabilitation services following acute care hospitalization. I think she would be a candidate for acute inpatient rehabilitation admission, but will await formal therapy evaluations. The PM&R Brain rehabilitation team will continue to follow along and assist with informing disposition planning,including assessing for acute inpatient rehabilitation candidacy (separate order not needed). * Marcelle Santiago M.D. - 12/22/2023 1:54 PM CDT Consults Attempted to see for PM&R physician consultation but patient was busy with primary service. Will return when patient and I are mutually available. * Jackie Good M.D. - 12/22/2023 6:58 AM CDTAssociated Order(s): IP CONSULT TO NEUROLOGY EMERGENCY NEUROLOGY CONSULT NOTE SUBJECTIVE Referral: KRISTEN C16 Primary Team: Attending: Rolando Glynn M.D. Reason for consult: L hemiparesis HISTORY OF PRESENT ILLNESS: Ms. Latonya Gordon is a 83 y.o. female with a history of HTN, HLD, chronic pain, and recent R MCA territory infarcts (November 2023) who was seen in the ED for worsening L hemiparesis. Please note that she also was evaluated in an outside ED 12/16 for an episode of left-sided numbness and tingling ofthe face, arm, and leg. I reviewed the records from [facility]. Unfortunately, we do not have the actual images available. We have reports from the MRI and CT. CT 11/20 showed a R precentral gyrus infarct. MRI 11/26 showed the R precentral gyrus infarct as well as a R parietal cortex and R frontal deep white matter infarct. It appears like all infarcts were in the territory of the R MCA. There were also chronic infarcts in the L MCA. This includes CTA from [facility] from November 21, 2023. This shows 50% stenosis of the R ICA. 11/19, she developed a headache with LUE paresis and numbness. She was seen in an ED and dismissed with concern for ocular migraine. She was told she didn't have a stroke because CT was negative. Severity waxed and waned. 11/24, she developed flaccidity in the LUE and heaviness in the left leg. Admitted to a different hospital [place]. Records not fully available. Did have TTE. Dismissed on DAPT and 30 day monitor with increase of Crestor to 20 mg. 12/16, she presented to the [facility] ED. She describes sudden woodenness and weakness of the left leg. She feels like the left leg is dragging on the ground. She may also notice some worsening in the left arm. She describes sensory jacket changer the left face, hand, and leg. She was apparently told in [facility] that she didn't have a new stroke. She presents today with continued left leg weakness. Her needs to support her quite a lot. 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 This did not show a-fib. Meds: Plavix 75 mg. ASA 650 mg per her PCP for her neck pain. Estradiol 10 mcg vaginal tablet. Losartan 50 mg. Oxycodone QHS. Crestor 20 mg. Passed swallow at 7:50 am 12/22/2023 at the bedside in the ED. Patient is from [facility] [id number]. Review of Systems: ROS as stated in the HPI, all other systems were reviewed and are negative Medications, allergies, past medical, surgical, social, and family history were reviewed in the chart and updated as appropriate. I have reviewed the current medication list. OBJECTIVE Temperature: [37.1 ??C] 37.1 ??C Heart Rate: [66-70] 70 Resp Rate: [15-20] 15 Blood Pressure: (137-148)/(57-73) 139/57 SpO2: [93 %-98 %] 96 % Pulse Rate: [65-72] 69 PHYSICAL EXAM Constitutional: well-developed, well-nourished, resting comfortably in bed Neurologic: Mental status: Alert and oriented to time, place and person Speech: Clear. Language: No evidence of aphasia. Cranial nerves: PERRL, EOMI, visual crowley intact to confrontation, facial movements full and symmetric, hearing intact to voice, tongue protrudes in midline, there is equal elevation of the soft palate, shoulder shrug is appropriate in strength. Motor: Bilateral upper and lower extremity strength evaluated including: (R, L) deltoids (0,-1), biceps (0,0), triceps (0,-1), finger extension (0,-2), interossei (0,-2), iliopsoas (0,-2), knee flexion (0,-2), knee extension (0,-1), ankle dorsiflexion (0,-1). Tone is normal in bilateral upper and lower extremities. Sensory: Mild subjective numbness in left arm > leg. Reflexes: biceps (+1,+2), brachioradialis (+1,+2), patellar (+1,+3). Plantar flexor responses are flexor-extensor. Coordination: Finger to nose and heel to east are normal bilaterally. Finger taps normal amplitude and speed bilaterally. Gait: Deferred. NIH Stroke Scale 1A. LOC: 0=alert; keenly responsive 1B. Questions: 0=answers both questions correctly 1C. Commands: 0=Performs both tasks correctly 2. Best Gaze: 0=normal 3. Visual: 0=No visual loss 4. Facial Palsy: 0=Normal symmetric movement 5A. Left Arm Motor: 1=Drift, limb holds 90 (or 45) degrees but drifts down before full 10 seconds: does not hit bed 5B. Right Arm Motor: 0=No drift, limb holds 90 (or 45) degrees for full 10 seconds 6A. Left Leg Motor: 1=Drift, leg falls by the end of the 5-second period but does not hit the bed 6B. Right Leg Motor: 0=No drift, leg holds 30 degrees for full 5 seconds 7. Limb Ataxia: 0=Absent 8. Sensory: 1=Mild to moderate sensory loss; patient feels pinprick is less sharp or is dull on theaffected side; there is a loss of superficial pain with pinprick but patient is aware She is being touched 9. Best Language:0=No aphasia, normal 10. Dysarthria: 0=Normal 11. Extinction: 0=No abnormality TOTAL SCORE: 3 ASSESSMENT / PLAN #L hemiparesis #hx R MCA territory infarcts, including R precentral gyrus #HTN #HLD #chronic pain Ms. Latonya Gordon is a 83 y.o. female with a history of HTN, HLD, chronic pain, and recent R MCA territory infarcts (November 2023) who was seen in the ED for worsening L hemiparesis. Please note that she also was evaluated in an outside ED 12/16 for an episode of left-sided numbness and tingling ofthe face, arm, and leg. We do not have the full details of her November evaluation in the outside hospital. Reports mentioned 50% stenosis of the proximal right ICA. MRI reports also note right precentral gyrus cortical infarct, right parietal cortex infarct, and punctate deep right frontal white matter infarct. She also haschronic left-sided infarcts. It is not clear to me whether neurology evaluated the patient after the MRI returned. Her mechanism was felt to be ESUS after they knew about the initial right precentralgyrus cortical infarct that had been seen on CT. In the setting, I am concerned about a symptomatic right ICA that has continued to produce embolic events, though cardioembolic events are also a possibility given report of chronic L-sided infarcts.While the R ICA is of only moderate stenosis, it is unclear to me as the images are not available whether plaque has any high-risk features. The question of whether she is on optimal medical management is somewhat unclear. I reviewed the neuro note from 11/24 where they said she would be narrowed from DAPT to Plavix monotherapy to allow her to be on Voltaren. However, the patient saw her PCP 11/25 and was placed on ASA 650 mg with plans for Plavix to continue for at least 21 days. Then she has not yet been taken off of Plavix. She is on Crestor 20 mg. I have asked the ED to push over the records from [facility]. We will also obtain an MRI and MR angiogram. I would like the MRI with contrast to aid in distinguishing infarct age. If MRI is negative for acute infarct, alternative etiologies include her degenerative spinal disease, recrudescence, etc. I explained the importance of the MRIs to the patient. If she is unable to tolerate the scans, we can plan for CTA head and neck and repeat CT, as interval stroke may now be visible, escalation of her statin, and potentially another 30 day monitor. Recommendations: -MRA head and neck, MRI brain with and without -disposition and final recommendations will be pending MR -if there have been interval infarcts, she will need to be admitted to the stroke service to be optimized from a medication standpoint, for PT/OT eval, and potential discussion of intervention on carotid depending on MRA results I appreciate the consult. Please page [phone] with any questions regarding the recommendations. Time spent in [id number] time with the patient, reviewing the patient's chart, and coordination of care: 60 minutes. Jackie Good MD Neurology PGY-4 Addendum 9:00 am: MRI shows interval R MCA territory infarcts. Full sequences are pending. In the meantime, [facility], confirming concern about the soft plaque at the proximal R ICA with 30-40% stenosis. There is a possible hyperdense component on the coronal concerning for intraplaque hemorrhage. I am going to offer stroke neurology admission. Note, she is on maximal medical therapy with an unconventional regimen as apparently ASA 650 mg was chosen for her neck pain. She is also on Plavix andCrestor 20 mg. Admit to cerebrovascular/stroke service. Cardiac monitoring for 24 hours. Neuro checks and vital signs per unit routine. Antiplatelet regimen: [id number], Plavix 75 mg (I would reduce from 650 mg ASA) Consider escalating from Crestor 20 mg. Carotid protocol: contact vascular neurosurgery or vascular surgery for possible intervention. Patient is normotensive. I think okay to resume home antihypertensives as this is not a lesion causing flow dependence and the infarcts are likely subacute. Defer to floor team. Please obtain hemoglobin A1c, TSH, fasting lipid panel. (We don't easily have the OSH lab draws.) Cardiac imaging per web consultant preference. Consult PM&R, PT, and OT. Bedside swallow passed 7:50 am. DVT prophylaxis with subcutaneous heparin. Code status, med rec, and dot stroke phrase per admitting resident. documented in this encounter Nursing Notes * Belle Ba R.N., CRRN - 12/25/2023 12:00 PM CDT Following Mrs. Gordon with the PMR brain consult team. I met with her to review her insurance disclosure letter. I informed her we have received prior authorization for admission to rehab. Per the primary team she is medically ready for admission. She will be admitted today. * Amy Wilkerson R.N. - 12/25/2023 11:46 AM CDT Problem: PAIN - ADULT Goal: PT VERBALIZES/DEMONSTRATES ADEQUATE COMFORT LEVEL OR BASELINE Outcome: Adequate for Discharge Problem: KNOWLEDGE DEFICIT Goal: Patient/family/caregiver demonstrates understanding of disease process, treatment plan, medications, and discharge instructions Outcome: Adequate for Discharge Problem: INFECTION - ADULT Goal: Absence of infection during hospitalization Outcome: Adequate for Discharge Problem: SKIN/TISSUE INTEGRITY Goal: Skin/Tissue integrity maintained or improved Outcome: Adequate for Discharge Goal: Oral and Nasal mucous membranes remain intact Outcome: Adequate for Discharge Problem: SAFETY ADULT Goal: Maintain a safe environment Outcome: Adequate for Discharge Problem: DISCHARGE PLANNING Goal: Patient discharge needs identified Outcome: Adequate for Discharge Problem: SAFETY ADULT - RISK FOR FALL AND OR FALL INJURY Goal: Patient remains free from fall/fall injury Outcome: Adequate for Discharge Problem: POTENTIAL OR ACTUAL PRESSURE INJURY-ADULT Goal: Manage sensory Perception deficits to maintain and/or improve skin integrity Outcome: Adequate for Discharge Goal: Maintain optimal skin moisture to ensure or improve skin integrity Outcome: Adequate for Discharge Goal: Achieve optimal activity and/or mobility to maintain or improve skin integrity Outcome: Adequate for Discharge Goal: Nutrient intake appropriate for improving, restoring or maintaining skin integrity Outcome: Adequate for Discharge Goal: Minimize friction and/or shear to maintain or improve skin integrity Outcome: Adequate for Discharge Problem: Compromised Skin Integrity Goal: Skin/Tissue integrity maintained or improved Outcome: Adequate for Discharge Goal: Oral and Nasal mucous membranes remain intact Outcome: Adequate for Discharge Goal: Incisions, wounds, or drain sites healing without S/S of infection Outcome: Adequate for Discharge Problem: Incontinence and/or Moisture Goal: Skin integrity is maintained or improved Outcome: Adequate for Discharge Shift Goals: Clinical Goals for the Shift: Pt will remain safe and free of falls Identify possible barriers to meeting goals/advancing plan of care: None End of Shift Summary: Goal met. Pt discharged to [facility]. Report called. IV removed. VSS. Care plan and education resolved. Electronically signed by: Laurie Wilkerson R.N. 12/25/23 11:47 AM CDT * Carol Smith R.N. - 12/25/2023 5:17 AM CDT Shift Goals: Clinical Goals for the Shift: pt will remain free from falls Identify possible barriers to meeting goals/advancing plan of care: None End of Shift Summary: Pt remained safe and free from falls during this shift. Electronically signed by: Carol Smith R.N. 12/25/23 5:17 AM CDT * Dara Newton RMarthaNMartha - 12/24/2023 5:13 PM CDT Shift Goals: Clinical Goals for the Shift: Patient will remain safe and free from falls during shift Identify possible barriers to meeting goals/advancing plan of care: mobility End of Shift Summary: goal met Problem: SAFETY ADULT Goal: Maintain a safe environment Outcome: Progressing Problem: DISCHARGE PLANNING Goal: Patient discharge needs identified Outcome: Progressing Electronically signed by: Dara Newton R.N. 12/24/23 5:13 PM CDT * Belle Ba R.N., CRRN - 12/24/2023 10:19 AM CDT Following Mrs. Gordon with the PMR brain consult team. I met with her to review admission requirements and unit routines for acute inpatient rehabilitation. She has been working with therapy and progressing. She is interested in staying her at [facility] for acute inpatient rehabilitation. She will have assistance at home from her spouse. She will require prior authorization from her insurance and that p rocess has been started. I reviewed the length of stay and visitor policy. She will be admitted when insurance authorization is received and a bed is available, tentative date of admission is 12/25/2023. * Isha Lazo [facility], R.N. - 12/23/2023 8:03 PM CDT Problem: PAIN - ADULT Goal: PT VERBALIZES/DEMONSTRATES ADEQUATE COMFORT LEVEL OR BASELINE Outcome: Progressing Problem: KNOWLEDGE DEFICIT Goal: Patient/family/caregiver demonstrates understanding of disease process, treatment plan, medications, and discharge instructions Outcome: Progressing Problem: INFECTION - ADULT Goal: Absence of infection during hospitalization Outcome: Progressing Problem: SKIN/TISSUE INTEGRITY Goal: Skin/Tissue integrity maintained or improved Outcome: Progressing Goal: Oral and Nasal mucous membranes remain intact Outcome: Progressing Problem: SAFETY ADULT Goal: Maintain a safe environment Outcome: Progressing Problem: DISCHARGE PLANNING Goal: Patient discharge needs identified Outcome: Progressing Problem: SAFETY ADULT - RISK FOR FALL AND OR FALL INJURY Goal: Patient remains free from fall/fall injury Outcome: Progressing Shift Goals: Clinical Goals for the Shift: Patient will remain safe this shift Identify possible barriers to meeting goals/advancing plan of care: Patient is alert and oriented x3. She is able to feed herself and make her needs known. Vitals have been stable. End of Shift Summary: She is an assist of 1 pivot to commode. HS cares done. Cardiac monitoring discontinued. * Sasha Silva M.S.N., R.N. - 12/22/2023 6:05 PM CDT Shift Goals: Clinical Goals for the Shift: Patient will remain safe this shift Identify possible barriers to meeting goals/advancing plan of care: none. End of Shift Summary: goal met. Problem: PAIN - ADULT Goal: PT VERBALIZES/DEMONSTRATES ADEQUATE COMFORT LEVEL OR BASELINE Outcome: Progressing Problem: KNOWLEDGE DEFICIT Goal: Patient/family/caregiver demonstrates understanding of disease process, treatment plan, medications, and discharge instructions Outcome: Progressing Problem: INFECTION - ADULT Goal: Absence of infection during hospitalization Outcome: Progressing Problem: SKIN/TISSUE INTEGRITY Goal: Skin/Tissue integrity maintained or improved Outcome: Progressing Goal: Oral and Nasal mucous membranes remain intact Outcome: Progressing Problem: SAFETY ADULT Goal: Maintain a safe environment Outcome: Progressing Problem: DISCHARGE PLANNING Goal: Patient discharge needs identified Outcome: Progressing Problem: SAFETY ADULT - RISK FOR FALL AND OR FALL INJURY Goal: Patient remains free from fall/fall injury Outcome: Progressing documented in this encounter ED Notes * Rosalina Holly APRN, C.N.P. - 12/22/2023 6:56 AM CDT Disposition pending Laboratory workup has been reviewed in his reassuring. Will contact Neurology for evaluation to determine if MRI is indicated give worsening left-sided weakness in the setting of previous stroke. VITAL SIGNS BP 139/57 Pulse 69 Temp 37.1 ??C Resp 15 Wt 70.8 kg SpO2 96% BMI 28.72 kg/m?? ED Course as of 12/22/23 0854 ThuDecember 22, 2023 0750 Neurology cleared for swallow 0800 Unable to tolerate MRI, will give her oxycodone which she takes at home as well as 0.5 of Ativan Final Diagnoses: as of 12/22/23 0854 Stroke ([facility]) Rosalina Holly APRN, C.N.P. 12/22/23 0656 * Mee Ruiz M.D. - 12/22/2023 5:44 AM CDT SUBJECTIVE CHIEF COMPLAINT/REASON FOR VISIT Extremity Weakness HISTORY OF PRESENT ILLNESS Ms Counter Professional is a 83 y.o. female with a recent right precentral gyrus infarct on 11/20 who is coming intoday for return of weakness after a period of recovery. With a stroke, she had left-sided weaknessincluding upper and lower extremity. She did occupational therapy afterwards and reported significant improvement. She was able to walk with no issues. Unfortunately, over the last few days she noticed return of weakness especially in the left leg. She 1st noted that when she got of the car a few days ago and felt like her leg buckled up. She was seen in the emergency department locally with headimaging that was not revealing. She has been taking her medication as prescribed. She denies any new symptoms. She denies chest pain, she has been, upper respiratory tract infectionsymptoms including congestion or sore throat, fevers, chills, joint pain, abdominal pain, diarrhea,hematochezia, dysuria. REVIEW OF SYSTEMS All other systems reviewed and are negative. OBJECTIVE Initial Vitals Temperature 12/22/23 0500 37.1 ??C Pulse Rate 12/22/23 0500 72 Heart Rate -- Resp Rate 12/22/23 0500 16 Blood Pressure 12/22/23 0500 137/73 SpO2 12/22/23 0500 98 % Pain Score 12/22/23 0512 5 - Moderate pain PHYSICAL EXAMINATION Constitutional: Nursing note reviewed. No distress. HENT: Head: Atraumatic. No signs of injury. Right Ear: Tympanic membrane normal. Left Ear: Tympanic membrane normal. Mouth/Throat: Mucous membranes are moist. Eyes: EOM are normal. Pupils are equal, round, and reactive to light. Right eye exhibits no discharge. Left eye exhibits no discharge. Cardiovascular: Regular rhythm. Exam reveals no friction rub. No murmur heard.Capillary refill: takes less than 3 seconds Pulmonary/Chest: Effort normal and breath sounds normal. There is normal air entry. No tachypnea. No respiratory distress. Abdominal: Soft. There is no abdominal tenderness. There is no guarding. Neurological: Alert and oriented to person, place, and time. She has cranial nerves II through XII intact. Focal sensory deficits do not include right face and left face. Normal speech. Focal motor strengths include, no weakness to the right arm, no weakness to the right leg, strength to the left arm, 3 /5. strength to the left leg, 2 /5. . Skin: She is not diaphoretic. ASSESSMENT/PLAN Assessment and Plan Ms. Gordon is a 83 year old with recent stroke in November who is coming in with worsening leg and armweakness after a period of recovery and improvement following her stroke. Year, she is hemodynamically stable with no new neurologic deficits. She had CT head in the ED of [facility] and she presented there for the same reason 3 days ago. Today, I believe the most likely cause of her symptomsis recrudescence. Her review of system is negative for any new complaints that would 0.22 nevus stressors. We will obtain CBC, BMP and electrolytes to assess for other causes. . Mee Ruiz M.D. Resident 12/22/23 0557 * Apolinar Parrish M.D., M.A. - 12/22/2023 5:11 AM CDT I have personally seen and examined this patient. I have fully participated in the care of this patient. I have reviewed all clinical information including history, physical exam, orders, and plan. Marinaee with the note of the resident. I personally performed the substantive portion of this service which was medical decision-making. Pertinent MDM details included below. Refer to the SLUDGE CONTROL OPERATOR/PA???s note for additional details. Assessment and Plan Latonya Gordon is a 83 y.o. female with a recent past medical history including a right precentral gyrus infarct about a month ago, as well as an emergency department visit at an outside hospital 5 days ago, who presents to the emergency department who presents to the emergency department with weakness and numbness on the left side of her body which are similar symptoms to those that she experienced both with the recent emergency department visit and with her acute stroke a month ago. On exam, the patient does have some pronator drift on the left and asymmetric strength in the left lower extremity as compared to the right though these seem to be consistent with the initial deficits that she had from her infarct. I am most concerned for recrudescence of her stroke symptoms as opposed toanother acute infarct. Furthermore, with her symptoms that she experienced a few days ago she did undergo an extensive workup in the emergency department including a CT scan and a CT angiogram of thehead and neck and a laboratory workup. Will perform a workup here to evaluate for potential causes of these deficits. Final disposition is pending workup and reassessment.. Final Diagnoses: as of 12/23/23 08 Stroke ([facility]) Apolinar Parrish M.D., M.A. 12/22/23 0530 Apolinar Parrish M.D., M.A. 12/23/23 0853 Apolinar Parrish M.D., M.A. 12/23/23 0853 * Heidi Barron R.N. - 12/22/2023 4:59 AM CDT Patient had a stroke in November 2023 which affected her left arm. She feels she was recovered well from this and then last a couple days ago she noted her left leg being very weak. Was seen in [facility] ED when the leg weakness started. Does have chronic neck/back pain and is wondering if this weakness could be stemming from that. Heidi Barron R.N. 12/22/23 0502 documented in this encounter Miscellaneous Notes * Hospital Course - Ritchie Cosby M.D. - 12/22/2023 4:03 PM CDT Ms. Latonya Gordon is a 83 y.o. female with a history of HTN, HLD, chronic pain, and recent R MCA territory infarcts (November 2023) who was seen in the ED for worsening L hemiparesis, found to have acute and subacute right MCA territory stroke. Patient had onset of left upper extremity weakness on 11/19. She was evaluated at local ED initially and had reportedly a negative CT. She presented to [facility] on 11/24 after developing sudden worsening of left upper extremity weakness. She was admitted and found to have right MCA territory infarct, specifically right precentral gyrus on brain MRI/. She was discharged to home on DAPT 81 mg of aspirin and 75 mg of Plavix. Her left upper extremity strength improved from 11/25 to 12/16. However on 12/16, she had sudden onset of left lower extremity weakness with worsening of her left upper extremity weakness. She presented to our ED where she was found to have new right MCA territory stroke concerning for possible symptomatic carotid stenosis. During her hospitalization at [facility] 11/24 - 11/27/23, she has had stroke workup including a CT head noncontrast on 11/24 which showed a small acute cortical infarct in the right precentral gyrus. A CT angiogram head and neck showed moderate possible right ICA stenosis, 50% by NASCET. She had a TTE that showed ejection fraction 60-65%, no common on the left atrial or appendageal size, no comment regarding intracardiac thrombus. A MRI brain without contrast performed 11/26 revealed acute right precentral gyrus cortical infarction, multiple small foci of diffusion restriction in the right frontal deep white matter and parietal cortex representing acute infarction, chronic left post central gyrus, parietal and deep white matter infarction. During this admission, extensive stroke workup has been obtained. A brain MRI without contrast on 12/21 revealed acute right MCA territory infarct including the right precentral gyrus. Due to concern for symptomatic carotid, we obtained MR angiogram of head and neck which showed 25-30% stenosis of right proximal ICA with predominantly noncalcified atherosclerotic plaque in this region with a thin rim of peripheral calcification. No evidence of intra plaque hemorrhage, this study was limited by motion artifact. 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 There was no left atrial dilatation or left appendageal thrombus. We suspect the mechanism of her stroke is most likely atheroembolic from her diffuse aortic arch atheroma. She has had extensive left MCA territorial infarcts as well as new right MCA territorial infarcts in the past 2 months. Cardioembolic etiology remains on the differential despite absence of a d ilatation or intracardiac thrombus. We will repeat a 30 day Holter monitor to rule out atrial fibrillation upon discharge. She will have a neurology follow up in 3 months to review the Holter monitorresults discussed potential anticoagulation therapy. She has been kept on aspirin and Plavix since her discharge from [facility] on 11/26. Dispensed hercompliance with taking DAPT, she had a new right MCA territory stroke. We decided to switch her Plavix to Brilinta 90 mg b.i.d. to complete a total of 30 days DAPT therapy with the end date on 01/22/2024. Patient has been evaluated by PT and OT and deemed an inpatient rehab candidate. Patient is motivated and agreed to move forward with inpatient rehabilitation. She was discharged on 12/25/23 to [facility] inpatient rehabilitation. documented in this encounter Plan of Treatment Upcoming Encounters Date Type Department Care Team (Late st Contact Info) Description 05/04/2024 3:00 PM CDT Education Department of Neurology in [place], [place] [address] [place] [address] Queta Quinn M.D. [address] [place] [address] Scheduled Referrals Name Type Priority Associated Diagnoses Order Schedule Neurology - Comprehensive stroke prevention multidisciplinary clinic Outpatient Referral Routine Stroke (HCC) Expected: 01/25/2024 (Approximate), Expires: 03/26/2025 documented as of this encounter Procedures Procedure Name Priority Date/Time Associated Diagnosis Comments EVENT MONITOR - HOSPITAL HOOKUP AT DISCHARGE Routine 01/20/2024 1:19 AM CDT Stroke (HCC) (GERA) 2D WITH COLOR, LIMITED DOPPLER AND CONTRAST Routine 12/23/2023 9:11 AM CDT ECG Routine 12/22/2023 3:14 PM CDT LIPID PANEL, S Routine 12/22/2023 11:44 AM CDT THYROID-STIMULATIN G HORMONE-SENSITIVE (S-TSH) Routine 12/22/2023 11:44 AM CDT HEMOGLOBIN A1C, B Routine 12/22/2023 11: 44 AM CDT MR NECK ANGIOGRAM WITHOUT AND WITH IV CONTRAST RAD - Routine (most inpatients and all outpatients) 12/22/2023 9:48 AM CDT MR BRAIN ANGIOGRAM WITHOUT IV CONTRAST RAD - Routine (most inpatients and all outpatients) 12/22/2023 9:48 AM CDT MR BRAIN WITHOUT AND WITH IV CONTRAST RAD - Routine (most inpatients and all outpatients) 12/22/2023 9:40 AM CDT CBC WITH DIFFERENTIAL, B STAT 12/22/2023 5:48 AM CDT PHOSPHORUS (INORGANIC), S STAT 12/22/2023 5:48 AM CDT MAGNESIUM, S STAT 12/22/2023 5:48 AM CDT BASIC METABOLIC PANEL, S/P STAT 12/22/2023 5:48 AM CDT documented in this encounter Results * EVENT [...] patient did not report any symptomatic events. Apple Sorter: AUNG Sheffield / AUNG Lam Procedure Note Jaime Diop M.D. - 01/23/2024 1. The patient was monitored from 12/25/2023 to 01/20/2024. The patient'sbaseline rhythm was sinus with a varying P-wave morphology. 2. PVCs were seen singly. There were 5 runs of ventricular tachycardiaobserved. The longest run of VT was 9 beats. The maximum rate of VT gai285 bpm. 3. PACs were seen singly and in pairs. There were 22 runs ofsupraventricular tachycardia observed. The longest run of SVT was 17beats. The maximum rate of SVT was 187 bpm. 4. The patient did not report any symptomatic events. Apple Sorter: AUNG Sheffield / AUNG Lam Ritchie Cosby M.D. [facility] SERVICES PROCEDURES INFOBIONIC MIKE NA * (GERA) 2D WITH COLOR, LIMITED DOPPLER AND CONTRAST (12/23/2023 9:11 AM CDT) Ejection Fraction 60 [facility] Mid-Ascending Aorta 30 [facility] Anatomical Region Laterality Modality Echocardiography 12/23/2023 8:01 [...] and the findings as documented in the port steward and also performed a pertinent examination including [...] performed at the request of the primary social service assistant. Adult probe inserted without difficulty. LEFT VENTRICLE:Normal [...] administration of sedation and during sedation. No [id number] shunt at atrial level at rest or [...] Sedation Narrator or other pertinent record in [facility] for additional procedure and sedation information. [...] and the findings as documented in the port steward and alsoperformed a pertinent examination including a heart, airway and lungassessment. Mallampati Assessment: As documented in the RN pre-procedureassessment. Sedation plan: Transesophageal echo - moderate sedation. ASAphysical status score: Class III. The patient's identity and all neededequipment were confirmed and a final confirmatory pause was performed bythe team immediately prior to start. PROCEDURAL ECHO FINDINGS:Transesophageal echocardiogram performed at the request of the primaryservice web consultant. Adult probe inserted without difficulty. LEFT [...] toadministration of sedation and during sedation. No [id number] shunt atatrial level at rest or with [...] Sedation Narrator or other pertinent record in [employer] foradditional procedure and sedation information. Physician signature forprocedural medications and patient discharge when DC criteria met. For the complete report, see the Order-Level Documents. Ritchie Cosby M.D. CV ECHO PROCEDURES * ECG 12 Lead (12/22/2023 3:14 PM CDT) Ventricular Rate ECG/Min 77 BPM MUSE ND Interval 160 ms MUSE QRSD Interval 82 ms MUSE QT Interval 372 ms MUSE QTC Interval 420 ms MUSE P [place] 61 degrees MUSE R [place] 61 degrees MUSE T Wave [place] 54 degrees MUSE 12/22/2023 3:14 PM CDT 12/22/2023 3:17 PM CDT Impressions MUSE - 12/22/2023 3:17 PM CDT Normal sinus rhythm Normal ECG No previous ECGs available Reviewed by AUNG Salcedo Narrative Procedure Note Barrera Beckham Jr., M.D. - 12/22/2023 IMPRESSION: Normal sinus rhythm Normal ECG No previous ECGs available Reviewed by AUNG Salcedo Ritchie Cosby M.D. ECG ORDERABLES Performing Organization Address [facility] Co de Phone Number MUSE NA * (ABNORMAL) Hemoglobin A1c (12/22/2023 11:44 AM [...] M.D. LAB BLOOD ADD-ON Performing Organization Address [facility] Co de Phone Number [facility] [address] [place] [address], [facility] DTL [facility] [address] [place] [address] * Lipid Panel (12/22/2023 11:44 AM CDT) [...] M.D. LAB BLOOD ADD-ON Performing Organization Address City/[facility]/ZIP Co de Phone Number [facility] [address] [place] [address] * S-TSH (Thyroid-Stimulating Hormone - Sensitive) (12/22/2023 11:44 AM CDT) TSH, Sensitive 3.1 0.3 - 4.2 mIU/L 12/22/2023 1:33 PM CDT DTL Blood (Blood, Venous) 12/22/2023 11:44 AM CDT 12/22/2023 1:04 PM CDT Ritchie Cosby M.D. LAB BLOOD ADD-ON Performing Organization Address City/[facility]/ZIP Co de Phone Number [facility] [address] [place] [address] * MR Brain Angiogram without IV Contrast (12/22/2023 9:48 AM CDT) Anatomical Region Laterality Modality Head, Brain, Neuroradiology RST [facility], Neuroradiology ARZ [facility], Neuroradiology FLA [facility] N/A Magnetic Resonance Impressions 12/22/2023 10:58 AM [...] described. Jackie RUIZ MRI PROCEDURES * MR Neck Angiogram without and with [...] APRN C.N.P. IMG MRI P ROCEDURES * Magnesium (12/22/2023 5:48 AM CDT) [facility] Magnesium, S 2.2 1.7 - 2.3 mg/dL 12/22/2023 6:24 AM CDT DT Blood (Blood, Venous) 12/22/2023 5:48 AM CDT 12/22/2023 6:10 AM CDT Mee Ruiz M.D. LAB BLOOD ADD-ON [facility] [address] [place] [address], [facility] [address] [place] [address] * Phosphorus Inorganic (12/22/2023 5:48 AM CDT) Phosphorus (Inorganic), S 3.6 2.5 - 4.5 mg/dL 12/22/2023 6:24 AM CDT DTL Blood (Blood, Venous) 12/22/2023 5:48 AM CDT 12/22/2023 6:10 AM CDT Mee Ruiz M.D. LAB BLOOD ADD-ON [facility] [address] [place] [address], [facility] [address] [place] [address] * Basic Metabolic Panel (12/22/2023 5:48 AM [...] CDT Mee Ruiz M.D. LAB BLOOD ADD-ON [facility] [address] [place] [address], [facility] STMA [facility] [address] [place] [address] * CBC with Differential, Blood (12/22/2023 5:48 [...] CDT Mee Ruiz M.D. LAB BLOOD ADD-ON [facility] [address] [place] [address], [facility] STMA [facility] [address] [place] [address] [facility] [address] [place] [address] documented in this encounter Visit Diagnoses Diagnosis Stroke (HCC)- Primary Stroke (HCC) Abnormal Gait Non Orthopedic [R26.89] Lack Of Coordination [R27.9] Abnormal Posture [R29.3] documented in this encounter Admitting Diagnoses Diagnosis Stroke (HCC) documented in this encounter Administered Medications Inactive Administered Medications - up to 3 most recent administrations Medication Order MAR Action Action Date Dose Rate Site acetaminophen tablet 1,000 mg (TYLENOL) 1,000 mg, oral, Every 8 hours PRN, mild pain or score 1-3 of 10, moderate pain or score 4-6 of 10, Starting on Thu12/22/23 at 1807 Given 12/25/2023 12:34 PM CDT 1,000 mg Given 12/25/2023 1:04 AM CDT 1,000 mg Given 12/24/2023 8:18 AM CDT 1,000 mg acetaminophen tablet 650 mg (TYLENOL) 650 mg, oral, Every 4 hours PRN, mild pain or score 1-3 of 10, moderate pain or score 4-6 of 10, Starting on Thu12/22/23 at 1547 Given 12/22/2023 5:34 PM CDT 650 m g [id number]-lhldgsxl in Lipoderm 2%-5%-5% cream 1 g 1 g, topical, 2 times daily, First dose on Thu12/22/23 at 2100 Given 12/25/2023 8:28 AM CDT 1 g Given 12/24/2023 9:30 PM CDT 1 g Given 12/24/2023 8:17 AM CDT 1 g aspirin chewable tablet 81 mg 81 mg, oral, Daily, First dose on Thu12/22/23 at 1515 Given 12/25/2023 8:27 AM CDT 81 mg Given 12/24/2023 8:18 AM CDT 81 mg Given 12/23/2023 8:00 AM CDT [address] tablet 10 mg (DULCOLAX) 10 mg, oral, 2 times daily PRN, constipation, Starting on Thu12/22/23 at 1128, Suppository is the preference. Swallow whole. Do NOT crush, chew, or split tablet. bisacodyL suppository 10 mg (DULCOLAX) 10 mg, rectal, 2 times daily PRN, constipation, Starting on Thu12/22/23 at 1128, Suppository is the preference. clopidogreL tablet 75 mg (PLAVIX) 75 mg, oral, Daily, First dose on Thu12/23/23 at 0900 Given 12/23/2023 8:00 AM CDT 75 mg clopidogreL tablet 75 mg (PLAVIX) 75 mg, oral, Once, On Thu12/22/23 at 1630, For 1 dose Given 12/22/2023 5:34 PM CDT 75 mg docusate sodium 283 mg/5 mL enema 1 enema (ENEMEEZ) 1 enema, rectal, 2 times daily PRN, constipation, Starting on Thu12/22/23 at 1128, If no bowel movement within 24 hours of starting bisacodyl estradioL vaginal tablet 10 mcg (VAGIFEM) 10 mcg, vaginal, 3 times weekly (Once per day on Thursday), First dose on Thu12/23/23 at 0900 Given 12/23/2023 8:00 AM CDT 10 mcg fentaNYL injection (SUBLIMAZE) As needed, Starting on Thu12/23/23 at 0853, Intraprocedure (CV) Given 12/23/2023 8:53 AM CDT 50 mcg gadobutrol injection 0.01-30 mL (GADAVIST) 0.01-30 mL, intravenous, Once in imaging, contrast, Starting on Thu12/22/23 at 0926, For 1 dose, Imaging Protocol Orders, Dose per Radiant Medication Guidelines Intrathecal doses greater than 0.25 mL not recommended. gadobutrol injection 0.01-30 mL (GADAVIST) 0.01-30 mL, intravenous, Once in imaging, contrast, Starting on Thu12/22/23 at 0926, For 1 dose, Imaging Protocol Orders, Dose per Radiant Medication Guidelines Intrathecal doses greater than 0.25 mL not recommended. Given 12/22/2023 9:27 AM CDT 7 mL heparin (porcine) injection 5,000 Units 5,000 Units, subcutaneous, Every 8 hours scheduled, First dose on Thu12/22/23 at 1400 Given 12/25/2023 6:24 AM CDT 5,000 Units Right Lower Abdomen Given 12/24/2023 9:57 PM CDT 5,000 Units R ight Lower Abdomen Given 12/24/2023 1:28 PM CDT 5,000 Units L eft Upper Abdomen hydrOXYzine tablet 25 mg (ATARAX) 25 mg, oral, Once, On Thu12/25/23 at 1145, For 1 dose Given 12/25/2023 11:34 AM CDT 25 mg lidocaine 5 % 1 patch (LIDODERM) 1 patch, transdermal, Administer over 12 Hours, Daily, First dose on Thu12/23/23 at 0900, Remove after 12 hours. Medication Applied 12/24/2023 8:17 AM CDT 1 patch Upper Back Medication Applied 12/23/2023 8:01 AM CDT 1 patch Other lidocaine 5 % ointment 1 Application (XYLOCAINE) 1 Application, mouth/throat, As needed, mild pain or score 1-3 of 10, See protocol, Starting on Thu12/23/23 at 0802, For 2 doses, Intraprocedure - Diagnostic, Apply 1 inch on tongue blade. Place ointment side down in back of mouth, as far back as possible. Instruct patient to swallow any dissolved ointment. After 2-3 minutes, check gag reflex. May repeat once if gag reflex remains. Administer first dose within 10 minutes of expected physician arrival to procedure. MAX of 20 g of ointment/day Given 12/23/2023 8:45 AM CD T 1 Application LORazepam injection 0.5 mg (ATIVAN) 0.5 mg, intravenous, Once, On Thu12/22/23 at 0758, For 1 dose, Shortage on injection, use oral when possible For intravenous use, dilute with equal volume of 0.9% NS Given 12/22/2023 8:14 AM CDT 0.5 mg losartan tablet 50 mg (COZAAR) 50 mg, oral, Daily at bedtime, First dose on Thu12/22/23 at 2100 Given 12/24/2023 9:44 PM CDT 50 mg Given 12/23/2023 9:15 PM CDT 50 mg Given 12/22/2023 9:00 PM CDT 50 mg magnesium sulfate in water IVPB 2 g 2 g, intravenous, at 25 mL/hr, Administer over 120 Minutes, Once, On Thu12/23/23 at 1715, For 1 dose, Over 2 hours. New Bag 12/23/2023 7:28 PM CDT 2 g 25 mL/hr midazolam (PF) injection (VERSED) As needed, Starting on Thu12/23/23 at 0853, Intraprocedure (CV) Given 12/23/2023 8:53 AM CDT 2 mg NaCl 0.9% bacteriostatic 0.9 % injection 40 mL 40 mL, intravenous, As needed, for agitated saline (bubble) studies, Starting on Thu12/23/23 at 0801, Intraprocedure - Diagnostic, See Angel. Given 12/23/2023 9:08 AM CDT 40 mL oxyCODONE IR tablet 5 mg (ROXICODONE) 5 mg, oral, Once, On Thu12/22/23 at 0755, For 1 dose Given 12/22/2023 8:06 AM CDT 5 mg oxyCODONE IR tablet 5 mg (ROXICODONE) 5 mg, oral, Daily at bedtime, First dose on Thu12/22/23 at 2100 Given 12/24/2023 9:44 PM CDT 5 mg Given 12/23/2023 9:21 PM CDT 5 mg Given 12/22/2023 9:00 PM CDT 5 mg rosuvastatin tablet 20 mg (CRESTOR) 20 mg, oral, Daily, First dose (after last modification) on Thu12/22/23 at 1630 Given 12/25/2023 8:27 AM CDT 20 mg Given 12/24/2023 8:18 AM CDT 20 mg Given 12/23/2023 8:01 AM CDT 20 mg sennosides-docusate sodium 8.6-50 mg per tablet 2 tablet (SENOKOT-S) 2 tablet, oral, Daily, First dose on Thu12/23/23 at 0900, While on opioids. Do not give if patient has diarrhea. Given 12/25/2023 8:27 AM CDT 2 tablets Given 12/24/2023 8:18 AM CDT 2 tablets Given 12/23/2023 8:01 AM CDT 2 tablets sennosides-docusate sodium 8.6-50 mg per tablet 2 tablet (SENOKOT-S) 2 tablet, gastric tube, Daily, First dose on Thu12/23/23 at 0900, While on opioids. Do not give if patient has diarrhea. sodium chloride (PF) 0.9 % injection 1-100 mL 1-100 mL, intravenous, Once, On Thu12/22/23 at 0927, For 1 dose, Imaging Protocol Orders, Dose per Radiant Medication Guidelines Given 12/22/2023 9:26 AM CDT 40 mL ticagrelor tablet 90 mg (BRILINTA) 90 mg, oral, 2 times daily, First dose on Thu12/24/23 at 0900 Given 12/25/2023 8:27 AM CDT 90 mg Given 12/24/2023 9:44 PM CDT 90 mg Given 12/24/2023 8:18 AM CDT 90 mg documented in this encounter Active and Recently Administered Medications Times are shown in CDT. Scheduled Medication Order 12/23/2023 12/24/2023 12/25/2023 amitriptyline-gabapen tin-ketamine in Lipoderm 2%-5%-5% cream 1 g 1 g, topical, 2 times daily, First dose on Thu12/22/23 at 2100 0800 (Given - Provider: Cyndi Aguilar R.N.)2114 (Given - Provider: Isha Lazo, [facility], R.N.) 08 (Given - Provider: Dara Newton R.N.)2129 (Given - Provider: Merari Burton R.N.) 0828 (Given - Provider: Amy Wilkerson RMarthaN.) aspirin chewable tablet 81 mg 81 mg, oral, Daily, First dose on Thu12/22/23 at 1515 0800 (Given - Provider: Cyndi Aguilar R.N.) 0818 (Given - Provider: Dara Newton R.N.) 0827 (Given - Provider: Amy Wilkerson R.N.) clopidogreL tablet 75 mg (PLAVIX) (CANCELED) 75 mg, oral, Daily, First dose on Thu12/23/23 at 0900 0800 (Given - Provider: Cyndi Aguilar R.N.) estradioL vaginal tablet 10 mcg (VAGIFEM) 10 mcg, vaginal, 3 times weekly (Once per day on Thursday), First dose on Thu12/23/23 at 0900 0800 (Given - Provider: Cyndi Aguilar R.N.) 0828 (Not Given - Provider: Amy Wilkerson R.N. - Reason: Patient/family refused) heparin (porcine) injection 5,000 Units 5,000 Units, subcutaneous, Every 8 hours scheduled, First dose on Thu12/22/23 at 1400 0632 (Given - Provider: Amy Arellano R.N.)1406 (Given - Provider: Cyndi Aguilar R.N.)2116 (Given - Provider: Isha Lazo, [facility], R.N.) 0509 (Given - Provider: Brandon Carroll R.N.)1328 (Given - Provider: Dara Newton RRashel)2157 (Given - Provider: Merari Burton RRashel) 0624 (Given - Provider: Carol Smith RMarthaNMartha) hydrOXYzine tablet 25 mg (ATARAX) (COMPLETED) 25 mg, oral, Once, On Thu12/25/23 at 1145, For 1 dose 1134 (Given - Provider: Amy Wilkerson R.N.) lidocaine 5 % 1 patch (LIDODERM) 1 patch, transdermal, Administer over 12 Hours, Daily, First dose on Thu12/23/23 at 0900, Remove after 12 hours. 0801 (Medication Applied - Provider: Cyndi Aguilar R.N.)2009 (Medication Removed - Provider: Isha Lazo, [facility], R.N.) 08 (Medication Applied - Provider: Dara Newton R.N.)212 (Medication Removed - Provider: Merari Burton R.N.) 0828 (Not Given - Provider: Amy Wilkerson R.N. - Reason: Patient/family refused) losartan tablet 50 mg (COZAAR) 50 mg, oral, Daily at bedtime, First dose on Thu12/22/23 at 2100 2115 (Given - Provider: Isha Lazo, [facility], R.N.) 2143 (Given - Provider: Merari Burton R.N.) magnesium sulfate in water IVPB 2 g (COMPLETED) 2 g, intravenous, at 25 mL/hr, Administer over 120 Minutes, Once, On Thu12/23/23 at 1715, For 1 dose, Over 2 hours. 192 (New Bag - Provider: Isha Lazo, [facility], R.N.) oxyCODONE IR tablet 5 mg (ROXICODONE) 5 mg, oral, Daily at bedtime, First dose on Thu12/22/23 at 2100 2121 (Given - Provider: Isha Lazo, [facility], R.N.) 2143 (Given - Provider: Merari Burton RMarthaNMartha) rosuvastatin tablet 20 mg (CRESTOR) 20 mg, oral, Daily, First dose (after last modification) on Thu12/22/23 at 1630 0801 (Given - Provider: Cyndi Aguilar R.N.) 0818 (Given - Provider: Dara Newton R.N.) 0827 (Given - Provider: Amy Wilkerson R.N.) sennosides-docusate sodium 8.6-50 mg per tablet 2 tablet (SENOKOT-S)(Linked Group 1) 2 tablet, oral, Daily, First dose on Thu12/23/23 at 0900, While on opioids. Do not give if patient has diarrhea. 0801 (Given - Provider: Cyndi Aguilar R.N.) 0818 (Given - Provider: Dara Newton R.N.) 0827 (Given - Provider: Amy Wilkerson R.N.) sennosides-docusate sodium 8.6-50 mg per tablet 2 tablet (SENOKOT-S)(Linked Group 1) 2 tablet, gastric tube, Daily, First dose on Thu12/23/23 at 0900, While on opioids. Do not give if patient has diarrhea. 0801 (See Alternative - Provider: Cyndi Aguilar R.N.) 0818 (See Alternative - Provider: Dara Newton R.N.) 0827 (See Alternative - Provider: Amy Wilkerson R.N.) sodium chloride (PF) 0.9 % injection 1-100 mL 1-100 mL, intravenous, Once, On Thu12/22/23 at 0927, For 1 dose, Imaging Protocol Orders, Dose per Radiant Medication Guidelines ticagrelor tablet 90 mg (BRILINTA) 90 mg, oral, 2 times daily, First dose on Thu12/24/23 at 0900 0818 (Given - Provider: Dara Newton R.N.)2144 (Given - Provider: Merari Burton R.N.) 08 (Given - Provider: Amy Wilkerson R.N.) PRN Medication Order 12/23/2023 12/24/2023 12/25/2023 acetaminophen tablet 1,000 mg (TYLENOL) 1,000 mg, oral, Every 8 hours PRN, mild pain or score 1-3 of 10, moderate pain or score 4-6 of 10, Starting on Thu12/22/23 at 1807 0017 (Given - Provider: Amy Arellano R.N.)1405 (Given - Provider: Cyndi Aguilar R.N.) 0010 (Given - Provider: Peng Trujillo RMarthaNMartha)0818 (Given - Provider: Dara Newton R.N.)2143 (Not Given - Provider: Merari Burton R.N. - Reason: Patient/family refused) 0104 (Given - Provider: Carol Smith R.N.)1234 (Given - Provider: Amy Wilkerson R.N.) albuterol nebulizer solution 2.5 mg 2.5 mg, nebulization, Every 4 hours PRN, shortness of breath, wheezing, Starting on Thu12/22/23 at 1552, Albuterol nebs were interchanged for albuterol/levalbuterol MDI (same frequency) bisacodyL DR tablet 10 mg (DULCOLAX)(Linked Group 2) 10 mg, oral, 2 times daily PRN, constipation, Starting on Thu12/22/23 at 1128, Suppository is the preference. Swallow whole. Do NOT crush, chew, or split tablet. bisacodyL suppository 10 mg (DULCOLAX)(Linked Group 2) 10 mg, rectal, 2 times daily PRN, constipation, Starting on Thu12/22/23 at 1128, Suppository is the preference. docusate sodium 283 mg/5 mL enema 1 enema (ENEMEEZ) 1 enema, rectal, 2 times daily PRN, constipation, Starting on Thu12/22/23 at 1128, If no bowel movement within 24 hours of starting bisacodyl fentaNYL injection (SUBLIMAZE) (COMPLETED) As needed, Starting on Thu12/23/23 at 0853, Intraprocedure (CV) 0853 (Given - Provider: Aicha Gama RNabil.) gadobutrol injection 0.01-30 mL (GADAVIST) 0.01-30 mL, intravenous, Once in imaging, contrast, Starting on Thu12/22/23 at 0926, For 1 dose, Imaging Protocol Orders, Dose per Radiant Medication Guidelines Intrathecal doses greater than 0.25 mL not recommended. lidocaine 5 % ointment 1 Application (XYLOCAINE) 1 Application, mouth/throat, As needed, mild pain or score 1-3 of 10, See protocol, Starting on Thu12/23/23 at 0802, For 2 doses, Intraprocedure - Diagnostic, Apply 1 inch on tongue blade. Place ointment side down in back of mouth, as far back as possible. Instruct patient to swallow any dissolved ointment. After 2-3 minutes, check gag reflex. May repeat once if gag reflex remains. Administer first dose within 10 minutes of expected physician arrival to procedure. MAX of 20 g of ointment/day 0845 (Given - Provider: Aicha Gama R.N.) midazolam (PF) injection (VERSED) (COMPLETED) As needed, Starting on Thu12/23/23 at 0853, Intraprocedure (CV) 0853 (Given - Provider: Aicha Gama R.N.) NaCl 0.9% bacteriostatic 0.9 % injection 40 mL 40 mL, intravenous, As needed, for agitated saline (bubble) studies, Starting on Thu12/23/23 at 0801, Intraprocedure - Diagnostic, See Angel. 0908 (Given - Provider: Aicha Gama R.N.) Linked Groups Order Group 1: sennosides-docusate sodium 8.6-50 mg per tablet 2 tablet (SENOKOT-S)Jump to med 2 tablet, oral, Daily, First dose on Thu12/23/23 at 0900, While on opioids. Do not give if patient has diarrhea. Or sennosides-docusate sodium 8.6-50 mg per tablet 2 tablet (SENOKOT-S)Jump to med 2 tablet, gastric tube, Daily, First dose on Thu12/23/23 at 0900, While on opioids. Do not give if patient has diarrhea. Group 2: bisacodyL DR tablet 10 mg (DULCOLAX)Jump to med 10 mg, oral, 2 times daily PRN, constipation, Starting on Thu12/22/23 at 1128, Suppository is the preference. Swallow whole. Do NOT crush, chew, or split tablet. Or bisacodyL suppository 10 mg (DULCOLAX)Jump to med 10 mg, rectal, 2 times daily PRN, constipation, Starting on Thu12/22/23 at 1128, Suppository is the preference. documented in this encounter Additional Health Concerns Assessment Noted Time PHQ-9 Depression Total Score: 0 12/22/19 24 2:00 PM CDT documented as of this encounter Care Teams Car Pusher Relationship Specialty Start Date End Date Elsewhere, Pcp PCP - General Family Medicine 06/04/21 documented as of this encounter
--- OUTSIDE RECORDS SUMMARY | 2024-02-26 15:58 | XMS_ITS | Encounter Summary ---
Author Organization [facility] Address [address] [place] [address] Care Team Providers Care Communication Consultant Name Role Phone Elsewhere, Pcp Primary Care Provider Unavailabl e Reason for Visit * Reason Onset Date Comments Remote Patient Monitoring 12/28/2023 Connec tivity Notification: Disconnected Monitor Encounter Details Date Type Department Care Team (Latest Contact Info) Description 12/28/2023 Clinical Communication Department of Neurology in [place], [place] [address] [place] [address] Ritchie Cosby M.D. [address] [place] [address] Remote Patient Monitoring (Connectivity Notification: Disconnected Monitor) Social History Tobacco Use Types Packs/Day Years Used Date Smoking Tobacco: Never Smokeless Tobacco: Never Alcohol Use Standard Drinks/Week Comments Yes 7 (1 standard drink = 0.6 oz pur e alcohol) Daily caffeine [facility] Utilities Answer Date Recorded In the past 12 months has [employer], gas, oil, or water [employer] threatened to shut off services in your [...] How often do you attend chur or mormon services? More than 4 times per year 09/27/2022 Do you belong to any clubs o r organizations such as restorationist groups, unions, fraternal or athletic groups, or [...] Answer Date Recorded PHQ-2 Score 0 01/27/2024 [facility] [place] [facility] Occupat ional Health - Occupational Stress [...] your living situation today? I have a [facility] place to live 01/23/2024 Education Answer Date Recorded What is the highest level of school you have completed or the highest degree you have received? Associate degree: occupational, technical, or vocational program 09/27/2022 Sex and Gender Information Value Date Recorded Sex Assigned at Female 06/28/2018 10:53 AM CLIENT LIAISON Gender Identity Female 06/28/2018 10:53 AM CLIENT LIAISON Sexual Orientation Straight 06/28/2018 10 :53 AM CLIENT LIAISON documented as of this encounter Miscellaneous Notes * Telephone Encounter - Stas Alejandra CRAT - 12/29/2023 10:33 AM CDT Title: Connectivity Notification - Extended A message from the Remote Monitoring Team: A cardiac monitoring device was ordered for your patient Latonya Gordon. As you are aware, the device relies on cellular network to store and transmit data. After review and troubleshooting with the patient, it was determined that the patient lives or works in an area with poor cellular connection. For this reason, you may see lapses in near real-time full disclosure data. The cardiac ambulatory device will store the data up to the full monitoring duration if poor cell connection is present. If the patient travels to an area with adequate cellular network, cardiac data will transmit from the device to the cardiac ambulatory monitoring portal, however this data will be reviewed retroactively. Our team will continue to contact the patient every 5 days and verify data is being collected and stored. If you have any questions please respond to the this notification or call us at [phone]). * Telephone Encounter - Esme Whalen CRAT - 12/28/2023 11:32 PM CDT Title: Connectivity Notification A message from the Remote Monitoring Team; A cardiac monitoring device was ordered for your patient Latonya Gordon. As you are aware, the device relies on cellular network to store and transmit data. This message is to alert you that we have not received data from this patient for more than 24 hours. At this time, it is unknown if there is poor cellular service preventing stored data transmission or if the patient is being non-compliant wearing the monitor. Our team is actively trying to reach the patient to troubleshoot the issue. We will keep in touch if we continue to experience connectivity issues preventing near-time data transmission or if the patient declines the monitoring service. If you have any questions, please respond to this notification or call us at [phone]). documented in this encounter Plan of Treatment Upcoming Encounters Date Type Department Care Team (Late st Contact Info) Description 05/04/2024 3:00 PM CDT Education Department of Neurology in [place], [place] [address] [place] [address] Queta Quinn M.D. [address] [place] [address] documented as of this encounter Visit Diagnoses Not on filedocumented in this encounter Additional Health Concerns Assessment Noted Time PHQ-9 Depression Total Score: 0 12/22/19 24 2:00 PM CDT documented as of this encounter Care Teams Communication Consultant Relationship Specialty Start Date End Date Elsewhere, Pcp PCP - General Family Medicine 06/04/21 documented as of this encounter
[2024-02-26] MEDS: OXYCODONE 5 MG TABLET PO (16:20)
[2024-02-26 16:38] VITALS: PULSE 69; O2SAT 98
[2024-02-26 17:00] VITALS: PULSE 68; O2SAT 98
[2024-02-26 17:04] VITALS: PULSE 69; O2SAT 98
[2024-02-26 17:30] VITALS: PULSE 70; O2SAT 99
[2024-02-26 17:34] VITALS: BP 194/82; PULSE 69; O2SAT 98
== END 2024-02-26 18:05 | disposition home or self-care (01) ==
PROVIDERS: Emergency Provider Emergency Medicine Emergency Medical Services; PCP Family Medicine
DX: S01.01XA Laceration without foreign body of scalp, initial encounter (principal); S00.03XA Contusion of scalp, initial encounter; W19.XXXA Unspecified fall, initial encounter
CPT/HCPCS: 12001; 70450; 73030; 99284; A9270

== ENCOUNTER 2024-10-17 14:30 | Outpatient (RCR) | payer MEDICARE, SELFPAY | END 2025-01-16 10:45 | disposition home or self-care (01) | PROVIDERS: PCP Family Medicine; Visit Provider Family Medicine | DX: M76.31 Iliotibial band syndrome, right leg (principal); M76.01 Gluteal tendinitis, right hip; M53.3 Sacrococcygeal disorders, not elsewhere classified; G89.29 Other chronic pain; S42.035D Nondisplaced fracture of lateral end of left clavicle, subsequent encounter for fracture with routine healing; S32.39 Other fracture of ilium; Z51.89 Encounter for other specified aftercare | CPT/HCPCS: 97110; 97116; 97140; 97162; 97164 ==

== ENCOUNTER 2025-01-11 19:59 | Emergency (ER) | payer MEDICARE, SELFPAY ==
--- OUTSIDE RECORDS SUMMARY | 2012-10-11 08:10 | XMS_ITS | Continuity of Care Document ---
Author Organization [facility] Address [address] [place] [address] Phone Care Team Providers Care Exhaust Worker Name Role Phone Sarah Grant MD Unavailable Unavailable Allergies, Adverse Reactions, Alerts Substance Reaction Status Criticality lisinopril Active No Information Penicillins Active No Information Medications Medication Instructions Dosage Effective Dates (start - stop) Status Comments Nutritional Supplement Oral Liquid 1-3 times daily, sublingual allergy drops - Active Advil 200 mg Tab 4-6 tablets daily - Activ e pravastatin 40 mg Tab take 1 tablet (40MG) by oral route every day 40 MG - Active losartan 50 mg Tab take 1 tablet (50MG) by oral route every day 50 MG - Active Mikayla 180 mg Tab take 1 tablet (180MG) by oral route every day - Active Co Q-10 100 mg Cap take 1 Tablet by Oral route every day 1 Tablet - Active Fish Oil 500 mg Cap take 2 Capsule by Oral route every day 2 Capsule - Active CALCIUM + VIT D (unknown strength) take 1 by Oral route every day Not Available - Active Vitamin D3 1,000 unit Tab take 1 Tablet by Oral route every day 1 Tablet - Active NASAL SPRAY (unknown strength) Not Available - Active Procedures Procedure Date Office/Outpatient Visit, New Routine Venipuncture Specimen Handling CReactive Protein Complete Cbc WAuto Diff Wbc Assay Of Ck (Cpk) Rbc Sed Rate, Nonautomated Assay Of Serum Albumin Assay Of Creatinine Transferase Ast Sgot Alanine Amino Alt Sgpt Advance Directives Directive Yes / No Effective Date File Name No Information Encounters Encounter Description Practice Location Reason(s) For Visit Diagnoses Date Provider Providers Copied on Encounter [facility], [address], [place], [address], [place] tel:[phone] [facility] , No Information 3 Rudy Smith. [facility] [address], [place], [address], [place]. tel:[phone] Office/Outpa tient Visit, New [facility], [address], [place], [address], [place] tel:[phone] [facility] , Pain All Over (chief complaint) Hallux rigidusPain in joint involving multiple sitesFatigue / MalaiseMyalg ia and myositis, unspecified 3 Rudy Smith. [facility] [address], [place], [address], [place]. tel:[phone] Referring Provider: Sarah Haider, [facility] [address] [facility] [address], [place], [address]. tel:[phone] [facility], [facility], [place], [address], [place] tel:[phone] [facility] , No Information 3 Rudy Smith. [facility] [address], [place], [address], [place]. tel:[phone] Family History Family Member Type Diagnosis Age At Onset mother Problem (finding) osteoarthritis Payers Payer name Insurance type Covered democrat ID Authoriza tion(s) [employer]cbs Medicare Advantage/Plat inum Blue BL [id number] Social History Type Description Quantity Date Captured Comments Sex Female Smoking Status No Information Chief Complaint And Reason For Visit No Information Reason For Referral Reason For Referral No Information History Of Present Illness Encounter Date Complaint History Of Prese nt Illness No Information Functional Status Date Functional Assessmen t No Information Instructions Date Instruction Additional Infor mation No Information Assessments Type Assessment Date No Information Patient Care Teams Name Effective Dates (start - stop) Status Members No Information
--- OUTSIDE RECORDS SUMMARY | 2012-10-11 08:10 | XMS_ITS | Continuity of Care Document ---
Author Organization [facility] Address [address] [place] [address] Phone Care Team Providers Care Etcher Electrolytic Name Role Phone Sarah Grant MD Unavailable [...] [facility], [address], [place], [address], [place] tel:[phone] [facility] , No Information 3 Rudy Smith. [facility] [address], [place], [address], [place]. tel:[phone] Office/Outpa tient Visit, New [facility], [address], [place], [address], [place] tel:[phone] [facility] , Pain All Over (chief complaint) Hallux rigidusPain in joint involving multiple sitesFatigue / MalaiseMyalg ia and myositis, unspecified 3 Rudy Smith. [facility] [address], [place], [address], [place]. tel:[phone] Referring Provider: Sarah Haider, [facility] [address] [facility] [address], [place], [address]. tel:[phone] [facility], [facility], [place], [address], [place] tel:[phone] [facility] , No Information 3 Rudy Smith. [facility] [address], [place], [address], [place]. tel:[phone] Family History Family Member Type Diagnosis Age At Onset mother Problem (finding) osteoarthritis Payers Payer name Insurance type Covered green party ID Authoriza tion(s) [employer]cbs Medicare Advantage/Plat [employer] Blue BL [id number] Social History Type Description Quantity Date Captured [...]
--- OUTSIDE RECORDS SUMMARY | 2017-12-31 04:00 | XMS_ITS | Continuity of Care Document ---
Author Organization [facility] Address [address] [address] [place] [address] Phone Care Team Providers Care Branch Service Leader Name Role Phone Jaydon Fuentes MD Unavailable Unavailable Allergies, Adverse Reactions, Alerts Substance Reaction Status Criticality PNEUMOCOCCAL 13-VALENT CONJUGATE TO DIPHTHERIA CRM jose lgia Active No Information lisinopril cough Active No Information gabapentin dizziness Active No Information doxycycline GI upset Active No Information Sulfa (Sulfonamide Antibiotics) rash Active No Information Penicillins rash Active No Information Medications Medication Instructions Dosage Effective Dates (start - stop) Status Comments diclofenac 1 % topical gel apply (2G) by topical route 4 times every day to the affected area(s) 2 G - Active omeprazole 20 mg capsule,delayed release take 1 capsule by oral route every day 30 minutes to 1 hour before a meal 20 MG - Active diclofenac sodium 75 mg tablet,delayed release take 1 tablet by oral route 2 times every day 75 MG - Active tramadol 50 mg tablet take 1 tablet by oral route every 6 hours as needed 50 MG - Active Toviaz 4 mg tablet,extended release take 1 tablet by oral route every day 4 MG - Active lorazepam 0.5 mg tablet take 1 tablet by oral route every day as needed 0.5 MG - Active losartan 50 mg tablet take 1 tablet by oral route every day 50 MG - Active aspirin 81 mg tablet,delayed release take 1 tablet by oral route every day 81 MG - Active rosuvastatin 10 mg tablet take 1 tablet by oral route every day 10 MG - Active Vitamin D3 5,000 unit tablet take 1 tablet by oral route every day 1 tablet - Active Probiotic and Acidophilus 300 million cell-250 mg capsule - Active Nasacort 55 mcg nasal spray aerosol take 2 inhaler by inhalation route every day 2 inhaler - Active fexofenadine 180 mg tablet take 1 tablet by oral route every day 180 MG - Active Fish Oil 1,000 mg (120 mg-180 mg) capsule take 1 capsule by oral route every day 1 capsule - Active Co Q-10 30 mg capsule - Active Calcium with Vitamin D 600 mg (1,500 mg)-400 unit tablet take 1 tablet by oral route every day 1 tablet - Active omeprazole 20 mg capsule,delayed release take 1 capsule by oral route 2 times every day 30 minutes to 1 hour before a meal 20 MG - Active Vagifem 10 mcg vaginal tablet insert 1 tablet by vaginal route every day for 14 days then 1 tablet (10 mcg) 2 times per week for duration of use 10 MCG - No Longer Active Carafate 100 mg/mL oral suspension take 10 milliliter by oral route 4 times every day for 11 days on an empty stomach 1 hour before meals and at bedtime 1 G - No Longer Active Procedures Procedure Date Offic/outpt E&m [facility] Advance Directives Directive Yes / No Effective Date File Name No Information Encounters Encounter Description Practice Location Reason(s) For Visit Diagnoses Date Provider Providers Copied on Encounter Offic/outpt E&m [facility] Karin [facility], [address] [address], [place], [place], [id number], [place] tel:[phone] [facility] GI Symptoms or Concerns (chief complaint) CoughHeartburnNausea 8 Alfredo Interiano. [address] [facility], [place], [place], [address] , [place]. tel:[phone] Referring Provider: Ofelia Vázquez PAC, [address] [facility], [place], [address] . tel:[phone] Family History Family Member Type Diagnosis Age At Onset Son Problem (finding) GERD Son Problem (finding) cancer of colon Payers Payer name Insurance type Covered republican ID Jonas robertson(s) Blue Cross [place] Blue BL [id number] Social History Type Description Quantity Date Captured Comments Alcohol Use Details Caffeine Use Details Unknown Tobacco Use Status Never smoked tobacco 2017 Smoking Status Never smoker Non-Smoking Tobacco Use Details : No Details Available : No Details Available Sex Female Vital Signs Date / Time: Height Weight BMI Pulse Rate Blood Pressure Temperature Respiratory Rate Body Surface Area Head Circumference Head Circ. Percentile Wt./Zane. Percentile BMI percentile Pulse Ox Inhaled Ox 8:52 AM 62.00 in 66.497 kg (146.60 lbs) 26.8 1 kg/m eter (2) 68 /min 106/66 mm[Hg] Chief Complaint And Reason For Visit From encounter dated '12/31/2017 09:00'. GI Symptoms or Concerns (chief complaint). Description: I had the pleasure of seeing Latonya Gordon today in clinic along with her for consultation for worsening heartburn and nausea symptoms, which began fairly abruptly about a week ago, after she had a choking episode at dinner. Latonya is a 77-year-old woman with a history of chronic heartburn, melanoma, osteoarthritis, and hysterectomy and colon polyps in the past. She states that she had an upper endoscopy several years ago, probably in about [address] Simpson in [place] for heartburn symptoms. She thinks that there was something abnormal found on endoscopy, but does not remember exactly what it was and could have been either a stricture or esophagitis or neither. We attempted to get these records, but that clinic did not have any records of an upper endoscopy for the patient. She was on chronic acid suppressing medicine for some years with good effect, but then actually was able to come off of this having gone on a gluten-free diet about 4 years ago. She had relatively well-controlled heartburn until this recent episode about a week ago. She also notes that she has been on diclofenac for herniated disk in her neck for the last few weeks, which was helpful for her, but then with this episode, she was advised to stop this and instead is using a topical cream for her neck pain. This cream is helpful, but not as good or as convenient as the diclofenac. She denies any other NSAID use. She was started on omeprazole 20 mg daily recently and today is the third day of taking this, but she has not noticed any difference in her symptoms yet.Specifically, she describes an episode a week ago, when she was out to dinnerwith her and some friends and she suddenly choked on a small piece of salmon. On further discussion of this, it actually sounds like she have this go down the wrong tube as she was having trouble breathing and actually choking rather than feeling the sensation of it being stuck. She actually denies any esophageal dysphagia- type symptoms or odynophagia. Ever since this episode, which was fairly dramatic and involved actually a little bit of urinary incontinence and severe coughing, she has had increased heartburn and nausea pretty much consistently throughout the day. She has not had any vomiting. She denies any weight loss, early satiety, change in appetite, abdominal pain, change in stools, melena, or hematochezia.Regarding her gluten-free diet, she feels this is very helpful with heartburn symptoms and also some bloating and eructation symptoms. She has liberalized that a little bit more recently, but when she does she notices more of these symptoms. She never had testing for celiac disease as far as she is aware.FAMILY HISTORYSignificant for colon cancer in her son as well as heartburn. No other GI disorders or malignancies in her family.SOCIAL HISTORYSheliu is currently . She has never used tobacco and she drinks alcohol occasionally in social situations. Reason For Referral Reason For Referral No Information Plan Of Treatment Date Type Action Status Referral Ordered: 01/31/2018 08:56 AM CDT: CCD sent. 01/31/2018 08:56 AM CDT: Message delivered to the recipient. (related to Nausea) ordered Referral Ordered: 01/31/2018 08:56 AM CDT: CCD sent. 01/31/2018 08:57 AM CDT: Message delivered to the recipient. (related to Nausea) ordered History Of Present Illness Encounter Date Complaint History Of Prese nt Illness GI Symptoms or Concerns I had th e pleasure of seeing Latonya Manager Medicare today in clinic along with her for consultation for worsening heartburn and nausea symptoms, which began fairly abruptly about a week ago, after she had a choking episode at dinner. Latonya is a 77-year-old woman with a history of chronic heartburn, melanoma, osteoarthritis, and hysterectomy and colon polyps in the past. She states that she had an upper endoscopy several years ago, probably in about [address] Simpson in [place] for heartburn symptoms. She thinks that there was something abnormal found on endoscopy, but does not remember exactly what it was and could have been either a stricture or esophagitis or neither. We attempted to get these records, but that clinic did not have any records of an upper endoscopy for the patient. She was on chronic acid suppressing medicine for some years with good effect, but then actually was able to come off of this having gone on a gluten-free diet about 4 years ago. She had relativ Functional Status Date Functional Assessmen t No Information Instructions Date Instruction Additional Infor mation Gastroesophageal Reflux Disease Related to Heartburn Assessments Type Assessment Date assessment Cough assessment Heartburn assessment Nausea impression Latonya Gordon is a 77 -year-old woman who presents today for worsening reflux and nausea symptoms, which started abruptly about a week ago, after she had a choking episode during dinner.She does have some chronic history of reflux and perhaps this is more exacerbated after this incident where she is more aware of it. It sounds more as though she had food actually go into her wind pipe as the way she describes the choking. I do not suspect any dysphagia due to esophageal source. I think that perhaps she had so much retching that she actually caused an esophageal tear or other injury and that is exacerbating her symptoms of heartburn and leading to some nausea symptoms. She has no nausea symptoms to suggest another non-GI etiology such as headache, dizziness, or neurologic complaints.For now, we will try addition of sucralfate up to 4 times per day for about 11 days to help soothe what I suspect would be some irritation either from heartburn or from an esophageal tear or injury from her choking last week. I will also have her increase the omeprazole to 20 mg twice per day for 2 to 4 weeks and then if she is feeling better, she can try decreasing to once per day and then eventually stopping if heartburn symptoms are also well controlled.I will have her continue to hold off on diclofenac, although I am not sure that this is anything to do with her recent symptoms. Once she is feeling better, she may try restarting diclofenac and see how she does with that.We did discuss celiac disease and gluten sensitivity and whether she would like to do any testing for this. However, she feels that she would be fairly symptomatic if she did a gluten challenge and for now I think we will hold off on any sort of celiac testing. However, if she were to have an upper endoscopy, I would likely also plan for duodenal biopsies at that time.She is planning a trip to [place] for 2 weeks starting in about 2 weeks. She is very much keen on sorting out these symptoms and feeling better prior to that trip. We decided that we would discuss her symptoms and response to the above medications in about a week and if she still has significant symptoms or has any other warning symptoms, then we would plan on upper endoscopy before her trip.Thank you so much for involving me in the care of this very pleasant woman.ADDENDUMAfter the completion of our visit in this note, it was found that she possibly did not actually have an upper endoscopy done, but in fact that it was an esophagram done in November of 2011. This esophagram was done for dysphagia and showed esophageal dysmotility involving predominantly the distal one-half of the esophagus with no anatomical strictures or masses or definite inflammatory changes as well as a small sliding hiatal hernia. Dysmotility is described as primary peristaltic stripping wave with nonpropulsive tertiary contractions involving the distal one-half of the esophagus. Patient Care Teams Name Effective Dates (start - stop) Status Members No Information
--- OUTSIDE RECORDS SUMMARY | 2017-12-31 04:00 | XMS_ITS | Continuity of Care Document ---
Author Organization [facility] Address [address] [address] [place] [address] Phone Care Team Providers Care Joint Runner Name Role Phone Jaydon Fuentes MD Unavailable [...] Provider Providers Copied on Encounter Offic/outpt E&m [facility] Karin [facility], [address] [address], [place], [place], [id number], [place] tel:[phone] [facility] GI Symptoms or Concerns (chief complaint) CoughHeartburnNausea 8 Alfredo Interiano. [address] [facility], [place], [place], [address] , [place]. tel:[phone] Referring Provider: Ofelia Vázquez PAC, [address] [facility], [place], [address] . tel:[phone] Family History Family Member Type Diagnosis Age At Onset Son Problem (finding) GERD Son Problem (finding) cancer of colon Payers Payer name Insurance type Covered democrat ID Jonas robertson(s) Blue Cross [place] Blue BL [id number] Social History Type Description Quantity Date Captured [...] in about [address] Simpson in [place] for heartburn symptoms. 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 Simpson in [place] for heartburn symptoms. She thinks that there [...] that time.She is planning a trip to [place] for 2 weeks starting in about 2 [...]
--- OUTSIDE RECORDS SUMMARY | 2025-01-11 20:02 | XMS_ITS | Encounter Summary ---
Author Organization [facility] Address [address] [place] [id number] Care Team Providers Care Chrome Tanner Name Role Phone Elsewhere, Pcp Primary Care Provider Unavailabl e Reason for Referral * Outpatient (Routine) - Authorized Specialty Diagnoses / Procedures Referred By Contac t Referred To Contact Diagnoses Stroke Cerebrovascular Accident Personal History Queta Quinn M.D. [address] [place] [phone] Phone: tel: fax: [facility] Referral ID Status Reason Start Date Expiration Date V isits Requested Visits Authorized [id number] Authorized 12/05/2024 06/06/2026 1 1 Scheduling Instructions Please schedule one hour phone visit (EST PHONE NONF2F) with Inderjit Lazo RN on the [facility] calendar for March 01, 2025 at 10 and then the [facility] calendar with Dr. Quinn at 11. Encounter Details Date Type Department Care Team (Late st Contact Info) Description 12/05/2024 Orders Only Department of Neurology in [place], [place] [address] [place] [phone] Johann Yu R.N. Stroke Cerebrovascular Accident Personal History (Primary Dx) Social History Tobacco Use Types Packs/Day Years Used Date Smoking Tobacco: Never Passive Smoke Exposure: Past Smokeless Tobacco: Never Alcohol Use Standard Drinks/Week Comments Yes 7 (1 standard drink = 0.6 oz pur e alcohol) Daily caffeine [facility] Utilities Answer Date Recorded In the past 12 months has e Imag[employer], gas, oil, or water [employer] threatened to shut off services in your home? No 03/03/2024 Humiliation, Afraid, Rape, and Kick questionnair e Answer Date Recorded Within the last year, have y ou been afraid of your partner or ex-partner? No 03/03/2024 Within the last year, have y ou been humiliated or emotionally abused in other ways by your partner or ex-partner? No Within the last year, have y ou been kicked, hit, slapped, or otherwise physically hurt by your partner or ex-partner? No 03/03/2024 Within the last year, have y ou been raped or forced to have any kind of sexual activity by your partner or ex-partner? No 03/03/2024 Social Connection and Isolat ion Panel [NHANES] Answer Date Recorded In a typical week, how many times do you talk on the phone with family, friends, or neighbors? More than three times a week 09/27/2022 How often do you get togethe r with friends or relatives? Three times a week 09/27/2022 How often do you attend [facility] or confucianism services? More than 4 times per year 09/27/2022 Do you belong to any clubs o r organizations such as buddhism groups, unions, fraternal or athletic groups, or [...] Answer Date Recorded PHQ-2 Score 0 01/27/2024 [facility] - Occupational [...] the money to buy more. Never true 03/03/20 24 Within the past 12 months, t he food you bought just didn't last and you didn't have money to get more. Never true 03/03/2024 PRAPARE - Transportation Answer Date Re corded In the past 12 months, has l ack of transportation kept you from medical appointments or from getting medications? No 02/08 In the past 12 months, has l ack of transportation kept you from meetings, work, or from getting things needed for daily living? No 03/03/2024 Depression Answer Date Recor ded PHQ-9 Total [...] have a [facility] place to live 03/03/2024 Education Answer Date Recorded What is the highest level of school you have completed or the highest degree you have received? 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 [address] [place] [phone] 03/01/2025 10:00 AM CDT Comprehensive Visit Department of Neurology in [address] [phone] Queta Quinn M.D. [address] [place] [phone] Scheduled Referrals Name Type Priority Associated Diagnoses Orde r Schedule Neurology - Comprehensive stroke prevention multidisciplinary clinic Outpatient Referral Routine Stroke Cerebrovascular Accident Personal History Expected: 03/01/2025 (Approximate), Expires: 03/06/2026 documented as of this encounter Visit Diagnoses Diagnosis Stroke Cerebrovascular Accident Personal History- Primary documented in this encounter Additional Health Concerns Assessment Noted Time PHQ-9 Depression Total Score: 1 01/27/20 24 8:21 AM CDT documented as of this encounter Care Teams Chrome Tanner Relationship Specialty Start Date End Date Elsewhere, Pcp PCP - General Family Medicine 06/04/21 documented as of this encounter
--- OUTSIDE RECORDS SUMMARY | 2025-01-11 20:02 | XMS_ITS | Clinical Summary ---
Author Organization [employer] [facility] Address [address] [place] [address] Care Team Providers Care Cyber Incident Analyst Name Role Phone Vaishali Baeza MD Primary Care Provide r Waldo Bethea MD Unavailable [phone] Allergies Active Allergy Reactions Criticality Noted Date Comments Aluminum Myalgia 03/27/2020 Cat Dander Itching 12/11/2009 Cat hair. Itching, pruritus. Corynebacterium Diphtheriae Myalgia 03/27/2020 Diclofenac Mental Status Change 03/10/2024 Acute stroke Diphtheria Toxoid,Fluid Myalgia 05/13/2022 Doxycycline GI Upset [...] I n Comment Field 05/05/2017 Sneezing. Medications COQ-10 30 MG CAP 1 daily 0 11/01/19 08 Active Cholecalciferol , Vitamin D3, (VITAMIN D-3) 5,000 unit tab Take 1 tablet by mouth once daily. 0 02/06/20 15 Active acetaminophen (TYLENOL EXTRA STRENGTH) 500 mg tablet Take 1 tablet by mouth every 6 hours if needed. Max acetaminophen dose: 4000mg in 24 hrs. 0 03/04/20 18 Active lactobacillus rhamnosus, GG, (CULTURELLE) 10 billion cell capsule Take 1 Cap by mouth. 05/05/20 17 Active calcium carbonate-vitam in D3 (CALCIUM PETITES) 200 mg (500 mg) -400 unit cap Take 2 Tabs by mouth. 05/05/20 17 Active Brilinta 90 mg tabletIndicatio ns:Cerebrovascu lar accident (CVA), unspecified mechanism (HC) Take 1 Tablet (90 mg) by mouth two times daily. 120 Tablet 3 02/09/20 24 Active rosuvastatin (CRESTOR) 20 mg tabletIndicatio ns:Cerebrovascu lar accident (CVA) due to thrombosis of cerebral artery (HC) TAKE 1 TABLET BY MOUTH AT BEDTIME 90 Tablet 3 03/28/20 24 Active albuterol HFA (PRO-AIR; VENTOLIN; PROVENTIL) 90 mcg/actuation inhalerIndicati ons:Bronchitis INHALE 1-2 PUFFS BY MOUTH EVERY 4 HOURS IF NEEDED (COUGH OR SHORTNESS OF BREATH). 6.7 Each 5 04/20/20 24 Active losartan (COZAAR) 25 mg tabletIndicatio ns:HTN (hypertension) Take 1 Tablet (25 mg) by mouth once daily. In the evening 90 Tablet 3 06/02/20 24 Active losartan (COZAAR) 50 mg tabletIndicatio ns:HTN (hypertension) Take 1 Tablet (50 mg) by mouth once daily. In the morning 90 Tablet 3 06/02/20 24 Active fluticasone (50 mcg per actuation) nasal solution (FLONASE) Inhale 2 Sprays in both nostrils once daily. 10/06/19 25 Active pregabalin 25 mg capsuleIndicati ons:Chronic bilateral low back pain without sciatica Take 1 Capsule (25 mg) by mouth two times daily. 60 Capsule 3 12/20/19 25 Active oxyCODONE 5 mg immediate release tabletIndicatio ns:Hip pain, left,Spinal stenosis of lumbar region with neurogenic claudication,Op en fracture of sacrum with routine healing, unspecified fracture morphology, subsequent encounter Take 1 Tablet (5 mg) by mouth 3 times daily if needed for Pain. 30 Tablet 01/04/20 25 Active oxyCODONE 5 mg immediate release tabletIndicatio ns:Hip pain, left,Spinal stenosis of lumbar region with neurogenic claudication,Op en fracture of sacrum with routine healing, unspecified fracture morphology, subsequent encounter Take 1 Tablet (5 mg) by mouth 3 times daily if needed for Pain. 30 Tablet 11/22/19 25 025 Discontinu ed(Reorder (E-cancel not sent)) predniSONE 10 mg tabletIndicatio ns:Chronic bilateral low back pain without sciatica Take 3 Tablets (30 mg) by mouth once daily with a meal for 2 days, THEN 2 Tablets (20 mg) once daily with a meal for 2 days, THEN 1 Tablet (10 mg) once daily with a meal for 2 days. 12 Tablet 12/09/19 25 025 Active Problems Problem Noted Date Diagnosed Date Atherosclerosis of aorta 01/07/2024 Cerebrovascular accident (CV A) due to thrombosis of cerebral artery 11/26/2023 Malignant melanoma of skin of lower extremity Overview (03/05/2022): Added automatically from request for surgery [id number] Retinal detachment with retinal defect 1 Overview (03/05/2022): Last Assessment & Plan: Exam appropriate for post-op month #3. Retina flat. Intraocular pressure acceptable. OK off drops Doing well with no correction--happy with vision! Refraction performed last visit. Continue to address dry eyes with artificial tears and dry eye mask (e.g., Thermalon) 5 min at night for meibomian gland dysfunction Discussed with patient retinal detachment precautions Vaginal [...] 11/03/2013 Personal history of colonic polyps 05/27/2013 Overview (05/27/2013): Colonoscopy 05/2013 normal repeat in 5 years Left hip osteoarthritis, with diffuse labral tea r. 12/17/2012 Hallux rigidus of right foot 07/07/2012 KIMBER 07/2009 AHI- 24.8, positional 11/26/2009 HTN (hypertension) 11/13/2009 GERD (gastroesophageal reflux disease) 9 Overview (09/11/2010): EGD 08/2010 normal Other and unspecified hyperlipidemia Allergic rhinitis, cause unspecified Malignant melanoma of skin of lower limb, includ ing hip Overview (09/20/2008): s/p excision with clear margins Cervicalgia Resolved Problems Problem Noted Date Diagnosed Date Resolved Date Ankle pain with recurrent tendonitis 07/17/2010 07/07/2012 Plantar fasciitis 06/01/2009 07/07/2012 Irritable bowel syndrome 11/2017 Encounters Date Type Department Care Team Description 12/29/2024 10:30 AM CDT Office Visit [facility] [address] [place] [address] Boby Echeverria MD Consult (cerumen removal/Mixed conductive and sensorineural hearing loss) 12/29/2024 Orders Only [facility] [address] [place] [phone] Ying Teran PA <No scans attached> 12/29/2024 Travel 12/08/2024 1:00 PM CDT Office Visit [facility] [address] [place] [address] Vaishali Baeza MD Back Pain (Pretty non-stop. Flexeril did not help. had total shoulder replaced, and is helping him more. Is driving more because of ./ said he could do an injection but the pain moves around./She needs some kind of help. /Had information sent to [facility]./Is there a pain clinic she could try.) 12/08/2024 Travel 11/16/2024 9:15 AM CDT Office Visit [facility] [address] [address] Deena Acosta, DO Derm Problem 11/16/2024 Travel 11/11/2024 Telephone [facility] [address] [address] Deena Acosta, DO Questions (Mole on back ) 11/09/2024 11:00 AM CDT Ancillary Procedure [address] [address] 11/09/2024 Travel 10/29/2024 Travel 10/26/2024 12:30 PM CDT Ancillary Procedure [address] [address] 10/26/2024 11:55 AM CDT Office Visit [address] [address] Ofelia Vázquez PA Back Pain (Back Pain wants imaging done.) 10/26/[address] [address] Waldo Bethea MD Questions 10/26/2024 Travel 10/26/[address] [address] Ofelia Vázquez PA Appointment 10/26/[address] [address] Waldo Bethea MD Refill Request (Oxycodone) 10/14/2024 9:30 AM GLASS SCULLION Orders Only [address] [address] Lab, [facility] 10/14/2024 Travel 10/11/2024 1:00 PM GLASS SCULLION Ancillary Procedure [facility] [address] [place], [place] [id number] from Last 3 Months Immunizations Immunization Administration Dates Next Due AMB Influenza, IIV3 (Age >=3 years) Preserve Free (Flu Clinic Only) 06/08/2012 COVID-19 VACCINE COMIRNATY (PFIZER-BIONTECH 30MCG/0.3ML) 12YO+ PFS 07/09/2024 COVID-19 vaccine (Moderna 100mcg/0.5mL) PF, MDV 05/14/2023 COVID-19 vaccine (Moderna Pietro milton 50mcg/0.25mL) PF, MDV 05/14/2023 COVID-19 vaccine (Pfizer-Bio NTech 30mcg/0.3mL) 12YO+ BIVALENT PF, MDV 05/30/2022 COVID-19 vaccine (Pfizer-Bio NTech 30mcg/0.3mL) 12YO+ STAN-SUCROSE PF, MDV 11/25/2021 COVID-19 vaccine (Pfizer-Bio NTech 30mcg/0.3mL) PF, MDV 05/09/2021,10/13/2020,09/22/2020 INFLUENZA, IIV3 PF (AGE >= 6 MO) 06/02/2024,04/11 Influenza Virus, Unspecified 05/14/2018, 05/13/2017,06/03/2016,06/08,06/08/2011,05/02/2010,04/20/2009 Influenza, High-dose Inactivated 05/14/2018 Influenza, IIV3 (Age >=3 years) 06/03/20 16,06/08/2011,05/02/2010,04/20 Influenza, IIV4 05/22/2023,,05/29/2021,06/04,06/13/2019,05/26/2015,06/06/2014 Influenza, IIV4 (=>6mos) MDV 05/13/2017 Influenza, Inactivated IIV3 (Age 65+ Years) Preserv Free 06/03/2016,06/08/2011,05/02/2010,04/20 Pneumococcal Poly,23-Valent (Pneumovax) 05/02/2010 Pneumococcal conj 13-Valent (Prevnar 13) 12/18/2015 RSV, Recombinant ADJ Reconst ituted (Arexvy 120MCG/0.5mL) 05/22/2023 Td (Age >=7 Years) 03/31/2007 Td, Preservative Free (age >= 7 Years) 7 Tdap 04/23/2019,02/13/2006 Zoster (Shingrix-RZV, recombinant) 06/13/2019, Zoster (Zostavax-ZVL, live) 05/10/2013 Family History Medical History Relation Name Comments Heart Disease Father [place] Other Mother Alzheimers Other Sister 3 fibromyalgia, [...] Answer Date Recorded PHQ-2 TOTAL SCORE 0 08/30/2024 Social Connections Answer Date Recorded Do you often feel lonely or isolated from those around you? 0 05/09/2024 Financial Resource Strain Answer Date R ecorded Difficulty of Paying Living Expenses 3 05/09/2024 Difficulty of Paying Living Expenses Not on file 05/09/2024 Food Insecurity Answer Date Recorded Do you worry your food will run out before you are able to buy more? 1 05/09/2024 Transportation Needs Answer Date Record ed Does lack of transportation keep you from medica l appointments? 1 05/09/2024 Does lack of transportation keep you from work, meetings or getting things that you need? 1 05/09/2024 Housing Stability Answer Date Recorded What is your housing situation today? 1 05/09/2024 Interpersonal Safety Answer Date Record ed Are you being hit, kicked, p ushed or yelled at (see row info)? No 04/28/2024 Interpersonal Safety Abuse 12 - 18 Not on file 04/28/2024 Interpersonal Safety Ambulatory Vulnerability No t on file 04/28/2024 Utilities Answer Date Recorded Do you have trouble paying f or utilities (for example, heat, electricity, water, phone)? 1 05/09/2024 Comments No Sex and Gender Information Value Date Recorded Sex Assigned at Female 08/03/2020 9:53 AM GLASS SCULLION Legal Sex Female 5:25 AM GLASS SCULLION Gender Identity Female 08/03/2020 9:53 AM GLASS SCULLION Sexual Orientation Not on file Occupation Industry Job Start Date Job End Date Retired Not on file Not on file Not on file Obstetrics History Para Term [...] Sign Reading Time Taken Comments Blood Pressure 123/74 12/08/2024 1:11 PM CDT Pulse 79 12/08/2024 1:11 PM CDT Temperature 36.4 C (97.5 F) 10/26/2024 11:41 AM CDT Respiratory Rate 18 04/28/2024 7:48 PM CDT Oxygen Saturation 96% 12/08/2024 1:11 PM CDT Inhaled Oxygen Concentration - - Weight 67.8 kg (149 lb 8 oz) 12/08/2024 1:11 PM CDT Height 156.2 cm (5' 1.5) 08/30/2024 2:15 PM GLASS SCULLION Body Mass Index 27.79 08/30/2024 2:15 PM GLASS SCULLION Plan of Treatment Upcoming Encounters Date Type Department Care Team (Late st Contact Info) Description 05/17/2025 11:15 AM CDT Office Visit [facility] [address] [address] Deena Acosta, [address] [place] [address] Health Maintenance Due Date Last Done Comments COVID-19 vaccine series (8 - 2024-25 season) 2025 07/09/2024, 05/14/2023, 05/14/2023, Additional history exists BMI (ht and wt on same day) for age 18+ 08/30/2025 08/30/2024, 04/07/2024, 03/05/2023, Additional history exists Medicare Wellness for age 65+ 08/31/2025 08/30/2024, 03/05/2023, 03/04/2022, Additional history exists Depression screening for age 12+ 10/13/2025 10/13/2024, 08/30/2024, 06/02/2024, Additional history exists Tetanus booster 04/23/2029 04/23/2019, 03/11, 03/31/2007, Additional history exists Pneumococcal series for age 50+ Completed 12/18/2015, 05/02/2010 DEXA/DXA scan for age 65+ Completed 2018, 03/18/2016, 04/19/2013 Tdap Completed 04/23/2019, 02/13/2006 Zoster (shingles) series for age 50+ Completed 06/13/2019, 03/09/2019, 05/10/2013 RSV vaccine for adults or Completed 05/22/2023 Influenza Vaccine Completed 06/02/2024, , 06/12/2022, Additional history exists Hepatitis B series for 19+ Aged Out N o longer eligible based on patient's age to complete this topic Procedures Procedure Name Priority Date/Time Associated Diagnosis Comments PROTEIN ELP SERUM W REFLEX Routine 12/08/2024 2:41 PM CDT Bone pain CBC WITH AUTO DIFFERENTIAL Routine 12/08/2024 2:41 PM CDT Arthralgia, unspecified joint VITAMIN B12 Routine 12/08/2024 2:41 PM CDT Arthralgia, unspecified joint VITAMIN D 25 (DEFICIENCY) Routine 12/08/2024 2:41 PM CDT Vitamin D deficiency SEDIMENTATION RATE Routine 12/08/2024 2: 41 PM CDT Arthralgia, unspecified joint C-REACTIVE PROTEIN Routine 12/08/2024 2: 41 PM CDT Arthralgia, unspecified joint RA QUANTITATIVE Routine 12/08/2024 2:41 PM CDT Arthralgia, unspecified joint XR MAMMO AJIME BILAT SCREEN Routine 11/09/2024 11:15 AM CDT Encounter for screening mammogram for malignant neoplasm of breast XR SPINE THORACOLUMBAR JUNCTION MINIMUM OF 2 VIEWS STAT 10/26/2024 12:13 PM CDT Chronic bilateral low back pain without sciatica Acute bilateral thoracic back pain HEMOGLOBIN A1C Routine 10/14/2024 9:35 AM GLASS SCULLION Prediabetes BASIC METABOLIC PANEL Routine 10/14/2024 9:35 AM GL[facility] SCULLION Prediabetes LIPID PANEL W REFLEX MEASURED LDL Routine 10/14/2024 9:35 AM GLASS SCULLION Cerebrovascular accident (CVA) due to thrombosis of cerebral artery (HC) US CAROTID DUPLEX BILATERAL Routine 10/11/2024 1:38 PM GLASS SCULLION Left carotid stenosis XR DXA BONE DENSITY 2 SITES AXIAL Routine 04/05/2019 11:28 AM CDT Menopause from Last 3 Months or Most Recently Relevant to Health Maintenance Results * (ABNORMAL) SEDIMENTATION RATE (12/08/2024 2:41 PM CDT) SED RATE BY MODIFIED WESTERGREN 34(H) < OR = 30 mm/h [facility] Blood BLOOD SPECIMEN / Unknown 12/08/2024 2:41 PM CDT 12/08/2024 2:42 PM CDT us Vaishali Baeza MD HEMATOLOGY Final Result [facility] [address] [place] [address], [facility] [address] [place] [address] * (ABNORMAL) PROTEIN ELP SERUM W REFLEX (12/08/2024 2:41 PM CDT) ELP,ALBUMIN 4.26 3.31 - 5.31 g/dL 12/09/2024 3:15 PM CDT [facility] ELP,ALPHA 1 0.39 0.19 - 0.42 g/dL 12/09/2024 3:15 PM CDT [facility] ELP,ALPHA 2 1.14(H) 0.44 - 1.03 g/dL 12/09/2024 3:15 PM CDT [facility] ELP,GAMMA 0.68 0.59 - 1.46 g/dL 12/09/2024 3:15 PM CDT [facility] ELP,BETA 0.83 0.52 - 1.05 g/dL 12/09/2024 3:15 PM CDT [facility] ELP INTERP,SERUM Increased alpha-globulins, probably reactive. No monoclonal protein detected. Interpreted and electronically signed by: Darya Jasso MD 12/09/2024 3:15 PM CDT [facility] PROTEIN,TOTAL 7.3 6.0 - 8.0 g/dL 12/09/2024 3:15 PM CDT [facility] Blood BLOOD SPECIMEN / Unknown [facility] / Unknown 12/08/2024 2:41 PM CDT 12/08/2024 2:41 PM CDT us Vaishali Baeza MD CHEMISTRY Final Result [facility] [address] [place] [address], [place] * VITAMIN D 25 (DEFICIENCY) (12/08/2024 2:41 PM CDT) VITAMIN D,25-OH,TOTAL,IA 63 30 - 100 ng/mL [facility] Comment: Vitamin D Status 25-OH Vitamin D: Deficiency: <20 ng/mL Insufficiency: 20 - 29 ng/mL Optimal: > or = 30 ng/mL For 25-OH Vitamin D testing on patients on D2-supplementation and patients for whom quantitation of D2 and D3 fractions is required, the [facility](TM) 25-OH VIT D, (D2,D3), LC/MS/MS is recommended: order code [id number] (patients >2yrs). See Note 1 Note 1 For additional information, please refer to http://education.Mopio/faq/XWG347 (This link is being provided for informational/ educational purposes only.) Blood BLOOD SPECIMEN / Unknown 12/08/2024 2:41 PM CDT 12/08/2024 2:42 PM CDT us Vaishali Baeza MD SEND OUTS Final Result [facility] [address] [facility] [place] [address], [place] [phone] [facility] [address] [place] [address] * RA QUANTITATIVE (12/08/2024 2:41 PM CDT) RHEUMATOID FACTOR 10 <14 IU/mL [facility] Blood BLOOD SPECIMEN / Unknown 12/08/2024 2:41 PM CDT 12/08/2024 2:42 PM CDT Vaishali Baeza MD SEND OUTS Final Result [facility] [address] [place] [address], [place] [phone] [facility] [address] [place] [address] * C-REACTIVE PROTEIN (12/08/2024 2:41 PM CDT) Pathologist [facility] C-REACTIVE PROTEIN 6.1 <8.0 mg/L [facility] Ibrahime Blood BLOOD SPECIMEN / Unknown 12/08/2024 2:41 PM CDT 12/08/2024 2:42 PM CDT Vaishali Baeza MD CHEMISTRY Final Result [facility] [address] [place] [address], [facility] [address] [place] [address] * CBC AND DIFFERENTIAL (12/08/2024 2:41 PM CDT) [facility] WHITE BLOOD CELL COUNT 8.7 3.8 - 10.8 Thousand/u L [facility] RED BLOOD CELL COUNT 4.35 3.80 - 5.10 Million/uL STYLHUNTWo od [facility] HEMOGLOBIN 13.2 11.7 - 15.5 g/dL [facility] HEMATOCRIT 40.8 35.0 - 45.0 % [facility] MCV 93.8 80.0 - 100.0 fL [facility] MCH 30.3 27.0 - 33.0 pg [facility] MCHC 32.4 32.0 - 36.0 g/dL [facility] Comment: For adults, a slight decrease in the calculated MCHC value (in the range of 30 to 32 g/dL) is most likely not clinically significant; however, it should be interpreted with caution in correlation with other red cell parameters and the patient's clinical condition. RDW 12.0 11.0 - 15.0 % [facility] PLATELET COUNT 368 140 - 400 Thousand/u L [facility] MPV 9.7 7.5 - 12.5 fL [facility] ABSOLUTE NEUTROPHILS 5,846 1,500 - 7,800 cells/uL [facility] ABSOLUTE LYMPHOCYTES 1,679 850 - 3,900 cells/uL [facility] ABSOLUTE MONOCYTES 774 200 - 950 cells/uL [facility] ABSOLUTE EOSINOPHILS 331 15 - 500 cells/uL [facility] ABSOLUTE BASOPHILS 70 0 - 200 cells/uL [facility] NEUTROPHILS 67.2 % [facility] LYMPHOCYTES 19.3 % [facility] MONOCYTES 8.9 % [facility] EOSINOPHILS 3.8 % [facility] BASOPHILS 0.8 % [facility] Blood BLOOD SPECIMEN / Unknown 12/08/2024 2:41 PM CDT 12/08/2024 2:42 PM CDT Vaishali Baeza MD HEMATOLOGY Final Result [facility] [address] [place] [address], [place] [phone] [facility] [address] [facility] [address] * VITAMIN B12 (12/08/2024 2:41 PM CDT) VITAMIN B12 627 200 - 1,100 pg/mL [facility] Blood BLOOD SPECIMEN / Unknown 12/08/2024 2:41 PM CDT 12/08/2024 2:42 PM CDT Vaishali Baeza MD CHEMISTRY Final Result [facility] [address] [facility] [place] [address], [place] [phone] [facility] [address] [place] [address] * XR MAMMO JAIME BILAT SCREEN (11/09/2024 11:15 AM CDT) Anatomical Region Laterality Modality BREASTS, Breast Left, Breast Right Bilateral Mammography Impressions 11/09/2024 3:44 PM CDT There is no radiographic evidence for malignancy. Recommend annual mammograms. MAMMOGRAM ASSESSMENT: ACR 1 Negative PATIENTS: You will also receive a letter with your examination results in an easy to read format. If you have questions about your results, please contact your referring provider. Narrative 11/09/2024 3:44 PM CDT For Patients: As a result of the Cures Act, medical imaging exams and procedure reports are released immediately into your electronic medical record. You may view this report before your referring provider. If you have questions, please contact your health care provider. XR MAMMO JAIME BILAT SCREEN [[id number]] CLINICAL HISTORY: This is an asymptomatic 84 y.o. patient. INDICATION FOR EXAM: Mammogram Screening. TECHNIQUE: CC and MLO views were obtained. This study was evaluated with the assistance of Computer-Aided Detection. Breast Tomosynthesis was used in interpretation. COMPARISON FILM: Yes 03/17/23 [facility] 02/28/21 [facility] FINDINGS: The breasts are heterogeneously dense, which may obscure small masses. There are no dominant masses, suspicious micro calcifications or areas of architectural distortion. us Vaishali Baeza MD MAMMO Final Result * XR SPINE THORACOLUMBAR JUNCTION MINIMUM OF 2 VIEWS (10/26/2024 12:13 PM CDT) Anatomical Region Laterality Modality Spine, THORACIC SPINE Computed R adiography 10/26/2024 12:2 0 PM CDT Narrative 10/26/2024 12:20 PM CDT For Patients: As a result of the Cures Act, medical imaging exams and procedure reports are released immediately into your electronic medical record. You may view this report before your referring provider. If you have questions, please contact your health care provider. Indication: Acute bilateral thoracic back pain Chronic bilateral low back pain without sciatica Technique: Two views of the thoracolumbar junction. Comparison: 08/24/2024. Findings: Osteopenia. No acute displaced fracture or malalignment. Moderate degenerative changes of the visualized spine. Moderate facet arthropathy of the lower lumbar spine. Eeed-fk-bsheugje leftward curvature of the thoracolumbar spine. Redemonstration of 3 millimeter of retrolisthesis of L2 on L3. Impression: No acute displaced fracture or malalignment. Moderate degenerative changes of the visualized spine with 3 millimeter of retrolisthesis of L2 on L3. Dictated by Dre Valenzuela MD @ 10/26/2024 12:20:01 PM (Electronically Signed) Procedure Note Carmelo Valenzuela MD - 10/26/2024 For Patients: As a result of the Cures Act, medical imagingexams and procedure reports are released immediately into your electronicmedical record. You may view this report before your referring provider.If you have questions, please contact your health care provider. Indication: Acute bilateral thoracic back pain Chronic bilateral low back pain without sciatica Technique: Two views of the thoracolumbar junction. Comparison: 08/24/2024. Findings: Osteopenia. No acute displaced fracture or malalignment. Moderate degenerative changes of the visualized spine. Moderate facetarthropathy of the lower lumbar spine. Yxjo-jw-wakpsxnt leftward curvatureof the thoracolumbar spine. Redemonstration of 3 millimeter of retrolisthesis of L2 on L3. Impression: No acute displaced fracture or malalignment. Moderate degenerative changes of the visualized spine with 3 millimeter ofretrolisthesis of L2 on L3. Dictated by Dre Valenzuela MD @ 10/26/2024 12:20:01 PM (Electronically Signed) [facility] Final Result * (ABNORMAL) HEMOGLOBIN A1C (10/14/2024 9:35 AM GLASS SCULLION) HEMOGLOBIN A1C 6.1(H) <5.7 % of total Hgb [facility] Comment: For someone without known diabetes, a hemoglobin A1c value between 5.7% and 6.4% is consistent with prediabetes and should be confirmed with a follow-up test. For someone with known diabetes, a value <7% indicates that their diabetes is well controlled. A1c targets should be individualized based on duration of diabetes, age, comorbid conditions, and other considerations. This assay result is consistent with an increased risk of diabetes. Currently, no consensus exists regarding use of hemoglobin A1c for diagnosis of diabetes for children. Blood BLOOD SPECIMEN / Unknown 10/14/2024 9:35 AM GLASS SCULLION 10/14/2024 9:36 AM GLASS SCULLION Vaishali Baeza MD CHEMISTRY Final Result [facility] [address] [place] [address], [facility] [address] [place] [address] * (ABNORMAL) LIPID PANEL W REFLEX MEASURED LDL (10/14/2024 9:35 AM GLASS SCULLION) CHOLESTEROL, TOTAL 137 <200 mg/dL [facility] HDL CHOLESTEROL 53 > OR = 50 mg/dL [facility] TRIGLYCERIDES 193(H) <150 mg/dL [facility] LDL-CHOLESTEROL 58 mg/dL (calc) [facility] Comment: Reference range: <100 Desirable range <100 mg/dL for primary prevention; <70 mg/dL for patients with CHD or diabetic patients with > or = 2 CHD risk factors. LDL-C is now calculated using the Oliverio-Gregorio calculation, which is a validated novel method providing better accuracy than the Friedewald equation in the estimation of LDL-C. Oliverio MEADE et al. ROBERT. 2013;310(19): 7303-6384 (http://education.[employer]isbi[employer].com/faq/GJA087) CHOL/HDLC RATIO 2.6 <5.0 (calc) [facility] NON HDL CHOLESTEROL 84 <130 mg/dL (calc) [facility] Comment: For patients with diabetes plus 1 major ASCVD risk factor, treating to a non-HDL-C goal of <100 mg/dL (LDL-C of <70 mg/dL) is considered a therapeutic option. Blood BLOOD SPECIMEN / Unknown 10/14/2024 9:35 AM GL[facility] SCULLION 10/14/2024 9:36 AM GLASS SCULLION Vaishali Baeza MD CHEMISTRY Final Result Performing Organization Address City/[facility]/ZIP Co de Phone Number [place] [facility] [address] [facility] [address] [address] [place] [place] [address], [place] [phone] [place] [address] [place] [address] * (ABNORMAL) BASIC METABOLIC PANEL (10/14/2024 9:35 AM GLASS SCULLION) GLUCOSE 101(H) 65 - 99 mg/dL [facility] Comment: Fasting reference interval For someone without known diabetes, a glucose value between 100 and 125 mg/dL is consistent with prediabetes and should be confirmed with a follow-up test. UREA NITROGEN (BUN) 22 7 - 25 mg/dL [facility] CREATININE 0.97(H) 0.60 - 0.95 mg/dL [facility] EGFR 58(L) > OR = 60 mL/min/1.7 3m2 [facility] BUN/CREATININE RATIO 23(H) 6 - 22 (calc) [facility] SODIUM 144 135 - 146 mmol/L [facility] POTASSIUM 4.5 3.5 - 5.3 mmol/L [facility] CHLORIDE 108 98 - 110 mmol/L [facility] CARBON DIOXIDE 27 20 - 32 mmol/L [facility] ELECTROLYTE BALANCE 9 7 - 17 mmol/L (calc) [facility] CALCIUM 9.7 8.6 - 10.4 mg/dL [facility] Blood BLOOD SPECIMEN / Unknown 10/14/2024 9:35 AM GLASS SCULLION 10/14/2024 9:36 AM GLASS SCULLION Vaishali Baeza MD CHEMISTRY Final Result Performing Organization Address [facility]/ZIP Co de Phone Number [place] [facility] [address] [place] [address], [place] [phone] [facility] [address] [place] [address] * US CAROTID DUPLEX BILATERAL (10/11/2024 1:38 PM GLASS SCULLION) Anatomical Region Laterality Modality CAROTID, NECK Ultrasound Impressions 10/13/2024 9:09 AM GLASS SCULLION 1. Less than 50 percent stenosis of the right ICA due to atherosclerotic plaque. 2. 50-69 percent stenosis of the left ICA due to atherosclerotic plaque, however, the true value is likely closer to 50 percent based on emerson-scale images. 3. Patent vertebral arteries and subclavian arteries. Sea Devine M.D. Neuroradiologist [email or web address] ADITHYA/warren / Narrative 10/13/2024 9:09 AM GLASS SCULLION Table formatting from the original result was not included. For Patients: As a result of the Cures Act, medical imaging exams and procedure reports are released immediately into your electronic medical record. You may view this report before your referring provider. If you have questions, please contact your health care provider. BILATERAL CAROTID ULTRASOUND, 10/11/2024 CLINICAL HISTORY: Left carotid stenosis. TECHNIQUE: The carotid circulations and the vertebral arteries in the neck were examined with emerson-scale ultrasound, color-flow and Doppler spectral analysis. Degrees of stenosis were determined using SRU 2002 Consensus Panel Criteria. COMPARISON: CTA neck 04/28/2024. Ultrasound 03/17/2023. FINDINGS: Mild echogenic plaque at the right carotid bulb and proximal ICA resulting in less than 50 percent stenosis. Normal antegrade flow in the right vertebral artery and triphasic waveforms in the right subclavian artery. Scattered echogenic plaque in the left common carotid artery resulting in less than 50 percent stenosis. Echogenic plaque at the left carotid bulb with elevated velocities in the ICA measuring up to 179 cm/second compatible with 50-69 percent stenosis, but likely closer to 50 percent based on emerson-scale images. Normal antegrade flow in the left vertebral artery and biphasic waveforms in the left subclavian artery. Peak-Systolic Velocity Right Left Distal CCA 62 100 Proximal ICA 112 179 Mid ICA 120 134 Distal ICA 110 119 ICA/CCA Ratio Right Left 1.94 1.79 Vertebral Artery Right Left Antegrade X X Retrograde Vaishali Baeza MD US Final Result * (ABNORMAL) XR DXA BONE DENSITY 2 SITES AXIAL (04/05/2019 11:28 AM CDT) Anatomical Region Laterality Modality Spine, HIPS, HIPL, HIPR Other Narrative 04/11/2019 10:38 AM CDT Please see scanned document for results of this study. us Vaishali Baeza MD DEXA Final Result from Last 3 Months or Most Recently Relevant to Health Maintenance Insurance BLUE CROSS MEDICARE ADVANTAGE MEDICARE PART A HB ONLY Advance Directives Documents on File Type Date Recorded Patient Audio/Video Technician Expl anation Healthcare Directive 11/14/2014 2:43 PM UPD ATED LIVING WILL/[employer] 03/20/00, [facility], 11/14/14 Care Teams Cyber Incident Analyst Relationship Specialty Start Date End Date Vaishali Baeza MD [address] [place] [address] PCP - General 01/09/10 Waldo Bethea MD [address] [place] [address] Sports Medicine 06/25/12
--- OUTSIDE RECORDS SUMMARY | 2025-01-11 20:02 | XMS_ITS | Encounter Summary ---
Author Organization [facility] Address [address] [place] [address] Care Team Providers Care Allopathic Doctor Name Role Phone Elsewhere, Pcp Primary Care Provider Unavailabl e Encounter Details Date Type Department Care Team (Late st Contact Info) Description 11/29/2024 Clinical Communication Department of Spine in [place], [place] [address] [place] [address] Provider, Unknown Social History Tobacco Use Types Packs/Day Years Used Date Smoking Tobacco: Never Passive Smoke Exposure: Past Smokeless Tobacco: Never Alcohol Use Standard Drinks/Week Comments Yes 7 (1 standard drink = 0.6 oz pur e alcohol) Daily caffeine [facility] Utilities Answer Date Recorded In the past 12 months has [employer] gas, oil, or water [employer] threatened to shut off services in your [...] often do you attend chur ch or sikhism services? More than 4 times per year 09/27/2022 Do you belong to any clubs o r organizations such as zoroastrian groups, unions, fraternal or athletic groups, or [...] Answer Date Recorded PHQ-2 Score 0 01/27/2024 [facility] - Occupational Stress [...] your living situation today? I have a [facility] place to live 03/03/2024 Education Answer Date Recorded What is the highest level of school you have completed or the highest degree you have received? Associate degree: occupational, technical, or vocational program 09/27/2022 Comments No Sex and Gender Information Value Date Recorded Sex Assigned at Female 06/28/2018 10:53 AM SENIOR COURTROOM CLERK Legal Sex Female 12:23 PM SENIOR COURTROOM CLERK Gender Identity Female 06/28/2018 10:53 AM SENIOR COURTROOM CLERK Sexual Orientation Straight 06/28/2018 10 :53 AM SENIOR COURTROOM CLERK documented as of this encounter Plan of Treatment Upcoming Encounters Date Type Department Care Team (Latest Contact Info) Description 02/23/2025 11:30 AM CDT Clinical Communication Virtual Review in [place], [place] [address] [place] [address] 02/24/2025 1:30 PM CDT Appointment Department of Radiology, [facility] in [place], [place] [address] [place] [address] Queta Quinn M.D. [address] [place] [address] 03/01/2025 10:00 AM CDT Comprehensive Visit Department of Neurology in [place], [place] [address] [place] [address] Queta Quinn M.D. [address] [place] [address] documented as of this encounter Visit Diagnoses Not on filedocumented in this encounter Additional Health Concerns Assessment Noted Time PHQ-9 Depression Total Score: 1 01/27/20 24 8:21 AM CDT documented as of this encounter Care Teams Allopathic Doctor Relationship Specialty Start Date End Date Elsewhere, Pcp PCP - General Family Medicine 06/04/21 documented as of this encounter
--- OUTSIDE RECORDS SUMMARY | 2025-01-11 20:02 | XMS_ITS | Clinical Summary ---
Author Organization [facility] Address [address] [place] [address] Care Team Providers Care Knitter Machine Name Role Phone Elsewhere, Pcp Primary Care Provider Unavailabl e Source Comments Patient records contain information from all sites at [facility]. For routine questions regarding patient records, call [phone] during business hours, M-F 8:00 AM - 5:00 PM Central Time. Record requests for emergency care only can be directed to [phone] at any time.[facility] Allergies Active Allergy Reactions Criticality Noted Date Comments Aluminum Myalgia 03/27/2020 Cat Dander Itching 12/11/2009 Cat hair. Itching, pruritus. Cefuroxime Other (see comments) 02/26/2024 Corynebacterium Diphtheriae Myalgia 03/27/2020 Diclofenac Other (see comments) 03/10/2024 Acute stroke Doxycycline GI intolerance,Other (see comments) 11/04/2016 Gabapentin Other (see comments) 10/16/2017 Grass Pollen Other (see comments) 05/05/2017 Sneezing. House Dust Mite Itching 12/11/2009 Dust. Itching, pruritus. Lisinopril Cough,Other (see comments) 01/09/2010 Mold Other (see comments) 05/05/2017 Sneezing. Penicillins Rash 03/08/2009 Pneumococcal Vaccine Myalgia 12/31/2017 Sulfa (Sulfonamide Antibiotics) Rash 05/05/2017 Tree And Shrub Pollen Other (see comments) 05/05/2017 Sneezing. Medications * This document contains information received from the source organization and may not represent a complete record from that organization. calcium carbonate-vitam in D3 200 mg (500 mg) -400 unit capsule Take 2 tablets by mouth at bedtime. 7 Active cholecalciferol (VITAMIN D3) 50 mcg (2,000 Unit) capsule Take 50 mcg by mouth daily. 7 Active Lactobacillus rhamnosus GG (CULTURELLE) 10 billion cell capsule Take 1 capsule by mouth daily. 7 Active losartan (COZAAR) 50 mg tablet Take 50 mg by mouth at bedtime. Provider added 25 mg at bedtime more than a month ago. 7 Active co-enzyme Q-10 (CO Q-10) 100 mg capsule Take 100 mg by mouth daily. Active oxyCODONE (ROXICODONE) 5 mg immediate release tablet Take 1 tablet by mouth every 6 (six) hours as needed for pain. Takes 1 at bedtime then additional during the day as needed 4 Active acetaminophen (TYLENOL) 500 mg tablet Take 2 tablets (1,000 mg total) by mouth every 6 (six) hours as needed for mild pain or score 1-3 of 10 or moderate pain or score 4-6 of 10. 4 Active hydrOXYzine (ATARAX) 25 mg tablet Take 1 tablet (25 mg total) by mouth every 8 (eight) hours as needed for anxiety. 15 tablet 4 Active Additional Information Patient not taking.Reported on 11/15/2024 Brilinta 90 mg tablet Take 90 mg by mouth 2 (two) times a day. 4 Active rosuvastatin (Crestor) 20 mg tablet Take 1 tablet by mouth at bedtime. 4 Active dextromethorpha n-guaiFENesin (Mucinex DM) 30-600 mg per 12 hr tablet Take 1 tablet by mouth at bedtime as needed for cough. Currently taking nightly for congestion. Active meclizine (Antivert) 12.5 mg tablet Take 12.5 mg by mouth 3 (three) times a day as needed for dizziness. Has not taken this recently. 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 Retina flat. Intraocular pressure acceptable. OK off drops Doing well with no correction--happy with vision! Continue to address dry eyes with artificial tears and dry eye mask (e.g., Thermalon) 5 min at night for meibomian gland dysfunction Discussed with patient retinal detachment precautions Assessment & Plan (09/26/2021 12:07 PM PHOTOSTAT OPERATOR): Exam appropriate for post-op month #3. Retina flat. Intraocular pressure acceptable. OK off drops Doing well with no correction--happy with vision! Refraction performed last visit. Continue to address dry eyes with artificial tears and dry eye mask (e.g., Thermalon) 5 min at night for meibomian gland dysfunction Discussed with patient retinal detachment precautions Assessment & Plan (07/11/2021 12:32 PM PHOTOSTAT OPERATOR): Exam appropriate for post-op month #1. Retina flat. Intraocular pressure acceptable--she runs in low 20s both eyes but no evidence of glaucoma. OK off drops Doing well with no correction--happy with vision! Will address dry eyes with artificial tears and dry eye mask (e.g., Thermalon) 5 min at night for meibomian gland dysfunction Discussed with patient retinal detachment precautions Assessment & Plan (06/14/2021 8:02 AM CDT): Exam appropriate for post-op week #1. Retina flat. Intraocular pressure acceptable. Start tapering drop regimen, as below Discussed with patient endophthalmitis and retinal detachment precautions Assessment & Plan (06/06/2021 1:48 PM CDT): Exam appropriate for post-op day #1. Retina flat. Intraocular pressure acceptable. Start drop regimen, as below Discussed with patient air, endophthalmitis, and retinal detachment precautions Instructions are provided below, and handout was given to patient Assessment & Plan (05/10/2021 10:25 PM CDT): Mac off RRD OD s/p PPV/EL/SO 04/06/21 (Jasmyn; [place]). 20/30 at time of presentation and surgery. Now 20/125 through oil. Exam appropriate for post-op month #1. Retina flat. Intraocular pressure elevated. Start intraocular pressure drop, as below Discussed with patient silicone oil, endophthalmitis, and retinal detachment precautions Instructions are provided below, and handout was given to patient Will plan for silicone oil removal Jun 2021 Assessment & Plan (04/10/2021 5:12 PM CDT): Mac off RRD OD s/p PPV/EL/SO 04/06/21 (Jasmyn; [place]). 20/30 at time of presentation and surgery Exam appropriate for post-op week #1. Retina flat. Intraocular pressure acceptable. Start tapering drop regimen, as below Discussed with patient silicone oil, endophthalmitis, and retinal detachment precautions Instructions are provided below, and handout was given to patient Will plan for silicone oil removal no sooner than 6 weeks. If stable next visit, will consider surgery sign up Intraocular Lens Implant Status Post 04/10/2021 Assessment & Plan (04/10/2021 5:06 PM CDT): Multifocal lenses both eyes, centered and stable Encounters Date Type Department Care Team Description 12/07/2024 Clinical Communication Department of Neurology in [place], [place] [address] [place] [address] Queta Quinn M.D. Question regarding upcoming appointments ([place]) 12/05/2024 Orders Only Department of Neurology in [place], [place] [address] [place] [phone] Johann Yu, R.N. Stroke Cerebrovascular Accident Personal History (Primary Dx) 12/05/2024 Clinical Communication Department of Neurology in [place], [place] [address] [place] [phone] Queta Quinn M.D. Appt Request 11/29/2024 Clinical Communication Department of Spine in [place], [place] [address] [place] [phone] Provider, Unknown 11/17/2024 Orders Only Department of Neurology in [place], [place] [address] [place] [phone] Queta Quinn M.D. Transient Ischemic Attack (Primary Dx) 11/15/2024 11:00 AM CDT Virtual Visit Department of Neurology in [place], [place] [address] [place] [phone] Queta Quinn M.D. Johann Yu, R.N. Stroke Cerebrovascular Accident Personal History from Last 3 Months Immunizations Immunization Administration Dates Next Due HZV (ZOSTAVAX) 05/10/2013 Influenza TIV (IM) 06/03/2016, 1,05/02/2010,2008 Influenza, Injectable, Quadrivalent 05/13/2017 Influenza, Seasonal, Injectable 06/03/2016,06/08,04/20/2009 PCV13 12/18/2015 PPSV23 05/02/2010 RZV (SHINGRIX) 06/13/2019,03/09/2019 SARS-COV-2 (COVID-19) - PFIZ ER TS(Discontinued)(12 years or older) 11/25/2021 Td Preservative Free (TENIVA C, DECAVAC) 03/31/2007 Tdap 04/23/2019,02/13/2006 influenza trivalent high dos e (HD)(PF) 05/14/2018 influenza trivalent vaccine (6 months and older)(PF) 06/08/2012,05/02/2010 influenza vaccine quad (FLUZONE/FLUARIX) (6 months and older)(PF) 05/29/2021,06/04/2020,06/13/2019,2014,06/06/2014 Family History Medical History Relation Name Comments Coronary artery disease Father shayla goldman Hyperlipidemia Father shayla goldman Skin cancer Mother Lesley Cortez Transient ischemic attack Mother Lesley Cortez Diabetes Sister 1 Inessa Parkinson disease Sister 2 Aishwarya Pearce Colon cancer Son Jacques Acuna Amblyopia Neg Hx Blindness Neg Hx Glaucoma Neg Hx Macular degeneration Neg Hx Strabismus Neg Hx Relation Name Status Comments Father shayla goldman Mother Lesley Cortez Sister 1 Inessa Sister 2 Aishwarya Pearce Son Jacques Acuna Social History Tobacco Use Types Packs/Day Years Used Date Smoking Tobacco: Never Passive Smoke Exposure: Past Smokeless Tobacco: Never Alcohol Use Standard Drinks/Week Comments Yes 7 (1 standard drink = 0.6 oz pur e alcohol) Daily caffeine [employer] Answer Date Recorded In the past 12 months has [employer] gas, oil, or water [employer] threatened to shut off services in your [...] often do you attend chur ch or mosque services? More than 4 times per year [...] Answer Date Recorded PHQ-2 Score 0 01/27/2024 [facility] Occup[facility] ional [facility] [...] your living situation today? I have a [facility] place to live 03/03/2024 Education Answer Date Recorded What is the highest level of school you have completed or the highest degree you have received? Associate degree: occupational, technical, or vocational program 09/27/2022 Comments No Sex and Gender Information Value Date Recorded Sex Assigned at Female 06/28/2018 10:53 AM PHOTOSTAT OPERATOR Legal Sex Female 12:23 PM PHOTOSTAT OPERATOR Gender Identity Female 06/28/2018 10:53 AM PHOTOSTAT OPERATOR Sexual Orientation Straight 06/28/2018 10 :53 AM PHOTOSTAT OPERATOR Last Filed Vital Signs Vital Sign Reading Time Taken Comments Blood Pressure 129/52 03/04/2024 3:00 PM CDT Pulse 73 03/04/2024 3:00 PM CDT Temperature 36.3 C (97.3 F) 03/04/2024 3:00 PM CDT Respiratory Rate 18 03/04/2024 3:00 PM CDT Oxygen Saturation 94% 03/04/2024 3:00 PM CDT Inhaled Oxygen Concentration - - Weight 68.3 kg (150 lb 9.2 oz) 03/03/2024 5:00 A M CDT Height 157.5 cm (5' 2) 03/02/2024 1:57 PM CDT Body Mass Index 27.54 03/02/2024 1:57 PM CDT Plan of Treatment Upcoming Encounters Date Type Department Care Team (Latest Contact Info) Description 02/23/2025 11:30 AM CDT Clinical Communication Virtual Review in [place] [address] [place] [phone] 02/24/2025 1:30 PM CDT Appointment Department of Radiology, [facility] in [place], [place] [address] [place] [phone] Queta Quinn M.D. [address] [place] [phone] 03/01/2025 10:00 AM CDT Comprehensive Visit Department of Neurology in [place], [place] [address] [place] [phone] Queta Quinn M.D. [address] [place] [address] Health Maintenance Due Date Last Done Comments Office Visit for Blood Pressure Check / Re-check 04/28/2024 01/27/2024 Depression Screening (Annual PHQ-2) 08/10/2024 Fall Risk Screen (Annual) 08/10/2024 COVID-19 Vaccine ( season) 2025 07/09/2024, 05/14/2023, 05/30/2022, Additional history exists Creatinine Level (Kidney Function Test) 04/28/2025 04/28/2024, 03/02/2024, 12/22/2023, Additional history exists Potassium Level 04/28/2025 04/28/2024, 02/08, 12/22/2023, Additional history exists Sodium Level 04/28/2025 04/28/2024, 02/08, 12/22/2023, Additional history exists DTaP,Tdap,and Td Vaccines (4 - Td or Tdap) 04/23/2029 04/23/2019, 03/31/2007, 02/13/2006 Pneumococcal vaccine (50+ years) Completed 12/18/2015, 05/02/2010 Zoster Vaccines Completed 06/13/2019, 02/09, 05/10/2013 RSV vaccine - (32-36 weeks) or 60+ years Completed 05/22/2023 Influenza Vaccine Completed 06/02/2024, , 06/12/2022, Additional history exists IPV Vaccines Aged Out No longer eligi ble based on patient's age to complete this topic Medical Devices Implanted Type Area Veterans Contact Representative Device Identifier Shelf Expiration Date Model / Serial / Lot Vinnie Blackman 5x5 - [id number] Implanted:Qty: 1 on 12/17/2021 by Brenda Mansfield D.O. at [facility] Bone or Tissue Left: Leg Integra 05/09/2023 [id number] / / [id number] Conversions - Default Historical Implant Device Implanted:05/05 (Quantity not on file) Hardware e.g. pins/screws /rods Right: Foot Description:Body Location - Foot R. Device Status Text - Hardware. screws. Clp Hrzn Ti 6 Clp Md Ruel - [id number] Implanted:Qty: 1 on 12/17/2021 by Brenda Mansfield D.O. at [facility] Hardware e.g. pins/screws /rods [employer] [id number] / / Clp Hrzn Ti 6 Clp Sm Red - [id number] Implanted:Qty: 1 on 12/17/2021 by Brenda Mansfield D.O. at [facility] Hardware e.g. pins/screws /rods [employer] [id number] / / Clp Hrzn Ti 6 Clp Sm Red - [id number] Implanted:Qty: 1 on 12/17/2021 by Brenda Mansfield D.O. at [facility] Hardware e.g. pins/screws /rods [employer] [id number] 07/21/2026 / / [id number] Clp Hrzn Ti 6 Clp Sm Red - [id number] Implanted:Qty: 1 on 12/17/2021 by Brenda Mansfield D.O. at [facility] Hardware e.g. pins/screws /rods [employer] [id number] 06/16/2026 / / [id number] Hip Implant- 0 Implanted:04/11 (Quantity not on file) Hip Implant Right: Hip Description:Implanted at [facility] Ocular Lens Ocular Lens Bilater al: Eye Procedures Procedure Name Priority Date/Time Associated Diagnosis Comments BASIC METABOLIC PANEL, S/P STAT 03/02/2024 6:49 AM CDT from Last 3 Months or Most Recently Relevant to Health Maintenance Results * Basic Metabolic Panel (03/02/2024 6:49 AM CDT) Potassium, P 4.1 3.6 - 5.2 mmol/L 03/02/2024 7:09 AM CDT [facility] Sodium, P 140 135 - 145 mmol/L 03/02/2024 7:09 AM CDT [facility] Chloride, P 105 98 - 107 mmol/L 03/02/2024 7:09 AM CDT [facility] Bicarbonate, P 22 22 - 29 mmol/L 03/02/2024 7:09 AM CDT [facility] Anion Gap, P 13 7 - 15 03/02/2024 7:09 AM CDT [facility] BUN (Blood Urea Nitrogen), P 19 6 - 21 mg/dL 03/02/2024 7:09 AM CDT [facility] Creatinine 0.83 0.59 - 1.04 mg/dL 03/02/2024 7:09 AM CDT [facility] Estimated GFR (eGFR) 70 >=60 mL/min/BSA 03/02/2024 7:09 AM CDT [facility] Comment: Estimated GFR calculated using the 2020 CKD_EPI creatinine equation. Calcium, Total, P 9.9 8.8 - 10.2 mg/dL 03/02/2024 7:09 AM CDT [facility] Glucose, P 120 70 - 140 mg/dL 03/02/2024 7:09 AM CDT [facility] Blood (Blood, Venous) 03/02/2024 6:49 AM CDT 03/02/2024 6:53 AM CDT us Rosalba Chavez M.D., M.S. LAB BLOOD ADD-ON F inal Result [facility] [address] [place] [address], [facility] [address] [place] [address] from Last 3 Months or Most Recently Relevant to Health Maintenance Insurance [facility] [place] [address] Advance Directives For more information, please contact: [phone] Documents on File Type Date Recorded Patient Quill Layer Expl anation Advance Directives 03/04/2024 11:25 AM Jacques Acuna HCPOA/ADVOCATE/AGENT/ NIGHT GUARD/SURROG ATE * DNR/DNI (Latest Code Status on File) Date Activated Date Inactivated Comments 03/02/2024 2:09 PM 03/04/2024 8:25 PM Question Answer Comments DNR/DNI (Do Not Resuscitate/Do Not Intubate): Di scussed-Patient * Full Code Date Activated Date Inactivated Comments 12/25/2023 1:34 [...] Not Discussed Due to: Not medically appropriate Healthcare Agents on File Name Relationship Healthcare Agent Relationshi p Communication Rebel Acuna Son Health Care Agent Jacques Acuna Son First Alternate Health Care Agent Hayden Acuna Son Second Altern ate Health Care Agent Care Teams Knitter Machine Relationship Specialty Start Date End Date Elsewhere, Pcp PCP - General Family Medicine 06/04/21
--- OUTSIDE RECORDS SUMMARY | 2025-01-11 20:02 | XMS_ITS | Encounter Summary ---
Author Organization [facility] Address [address] [place] [address] Care Team Providers Care Rod Mill Tender Name Role Phone Elsewhere, Pcp Primary Care Provider Unavailabl e Reason for Visit * Reason Onset Date Comments Question regarding upcoming appointments 025 [place] Encounter Details Date Type Department Care Team (Latest Contact Info) Description 12/07/2024 Clinical Communication Department of Neurology in [place], [place] [address] [place] [address] Queta Quinn M.D. [address] [place] [phone] Question regarding upcoming appointments ([place]) Social History Tobacco Use Types Packs/Day Years Used Date Smoking Tobacco: Never Passive Smoke Exposure: Past Smokeless Tobacco: Never Alcohol Use Standard Drinks/Week Comments Yes 7 (1 standard drink = 0.6 oz pur e alcohol) Daily caffeine [facility] Utilities Answer Date Recorded In the past 12 months has th e electric, gas, oil, or water company threatened to shut off services in your [...] often do you attend chur ch or alevism services? More than 4 times per year 09/27/2022 Do you belong to any clubs o r organizations such as jain groups, unions, fraternal or athletic groups, or [...] Answer Date Recorded PHQ-2 Score 0 01/27/2024 [facility] of Occupat ional Health - Occupational [...] a [facility] place to live 03/03/2024 Education Answer Date Recorded What is the highest level of school you have completed or the highest degree you have received? Associate degree: occupational, technical, or vocational program 09/27/2022 Comments No Sex and Gender Information Value Date Recorded Sex Assigned at Female 06/28/2018 10:53 AM CLINICAL STUDIES SPECIALIST Legal Sex Female 12:23 PM CLINICAL STUDIES SPECIALIST Gender Identity Female 06/28/2018 10:53 AM CLINICAL STUDIES SPECIALIST Sexual Orientation Straight 06/28/2018 10 :53 AM CLINICAL STUDIES SPECIALIST documented as of this encounter Plan of Treatment Upcoming Encounters Date Type Department Care Team (Latest Contact Info) Description 02/23/2025 11:30 AM CDT Clinical Communication Virtual Review in [place], [place] [address] [place] [address] 02/24/2025 1:30 PM CDT Appointment Department of Radiology, [facility] in [place], [place] [address] [place] [phone] Queta Quinn M.D. [address] [place] [phone] 03/01/2025 10:00 AM CDT Comprehensive Visit Department of Neurology in [place], [place] [address] [place] [place] [phone] Queta Quinn M.D. [address] [place] [phone] documented as of this encounter Visit Diagnoses Not on filedocumented in this encounter Additional Health Concerns Assessment Noted Time PHQ-9 Depression Total Score: 1 01/27/20 24 8:21 AM CDT documented as of this encounter Care Teams Rod Mill Tender Relationship Specialty Start Date End Date Elsewhere, Pcp PCP - General Family Medicine 06/04/21 documented as of this encounter
--- OUTSIDE RECORDS SUMMARY | 2025-01-11 20:02 | XMS_ITS | Encounter Summary ---
Author Organization [facility] Address [address] [place] [id number] Care Team Providers Care Mechanical Supervisor Name Role Phone Elsewhere, Pcp Primary Care Provider Unavailabl e Reason for Visit * Reason Onset Date Comments Appt Request 12/05/2024 Encounter Details Date Type Department Care Team (Late st Contact Info) Description 12/05/2024 Clinical Communication Department of Neurology in [place], [place] [address] [place] [phone] Queta Quinn M.D. [address] [place] [phone] Appt Request Social History Tobacco Use Types Packs/Day Years Used Date Smoking Tobacco: Never Passive Smoke Exposure: Past Smokeless Tobacco: Never Alcohol Use Standard Drinks/Week Comments Yes 7 (1 standard drink = 0.6 oz pur e alcohol) Daily caffeine [facility] Utilities Answer Date Recorded In the past 12 months has e electric, gas, oil, or water [employer] threatened to shut off services in your [...] often do you attend chur ch or islam services? More than 4 times per year [...] Answer Date Recorded PHQ-2 Score 0 01/27/2024 [facility] of Occupat ional Health - Occupational Stress [...] your living situation today? I have a [facility] place to live 03/03/2024 Education Answer Date Recorded What is the highest level of school you have completed or the highest degree you have received? Associate degree: occupational, technical, or vocational program 09/27/2022 Comments No Sex and Gender Information Value Date Recorded Sex Assigned at Female 06/28/2018 10:53 AM CONTRACTS MANAGER Legal Sex Female 12:23 PM CONTRACTS MANAGER Gender Identity Female 06/28/2018 10:53 AM CONTRACTS MANAGER Sexual Orientation Straight 06/28/2018 10 :53 AM CONTRACTS MANAGER documented as of this encounter Plan of Treatment Upcoming Encounters Date Type Department Care Team (Latest Contact Info) Description 02/23/2025 11:30 AM CDT Clinical Communication Virtual Review in [place], [place] [address] [place] [address] 02/24/2025 1:30 PM CDT Appointment Department of Radiology, [facility] in [place], [place] [address] [place] [phone] Queta Quinn M.D. [address] [place] [phone] 03/01/2025 10:00 AM CDT Comprehensive Visit Department of Neurology in [address] [phone] Queta Quinn M.D. [address] [place] [phone] documented as of this encounter Visit Diagnoses Not on filedocumented in this encounter Additional Health Concerns Assessment Noted Time PHQ-9 Depression Total Score: 1 01/27/20 24 8:21 AM CDT documented as of this encounter Care Teams Mechanical Supervisor Relationship Specialty Start Date End Date Elsewhere, Pcp PCP - General Family Medicine 06/04/21 documented as of this encounter
[2025-01-11 20:10] VITALS: BP 155/77; PULSE 68; RESP 18; TEMP 36.7; O2SAT 99; BMI 26.5
--- NOTE | 2025-01-11 20:39 | ED.GENADULT ---
HPI - General Adult General Chief complaint: Laceration/Wound Stated complaint: R arm lac Time Seen by Provider: 01/11/25 20:35 History of Present Illness HPI narrative: CC: Right Forearm Laceration pt. cut arm on walker. is on blood thinners. 84-year-old woman presenting to the emergency department following a cut to her right forearm. Apparently slipped transitioning out of the shower. Got hung up on a bolt on her walker cutting her arm. No other significant injuries were sustained. Related Data Home Medications ?Medication ?Instructions ?Recorded ?Confirmed albuterol sulfate 90 mcg/actuation 1 - 2 puff inhalation Q4H PRN 01/03/23 02/26/24 aerosol inhaler dyspnea estradiol 10 mcg vaginal tablet 10 mcg vaginal 3XW 01/03/23 02/26/24 (Yuvafem) losartan 50 mg tablet 50 mg PO DAILY 01/03/23 02/26/24 cetirizine 10 mg tablet (24Hour 10 mg PO DAILY PRN 11/21/23 02/26/24 Allergy) coQ10 (ubiquinol) 100 mg capsule 100 mg PO DAILY 11/21/23 02/26/24 (Qunol Eduardo CoQ10) diclofenac sodium 75 mg 75 mg PO DAILY 11/21/23 02/26/24 tablet,delayed release oxycodone 5 mg tablet 5 mg PO Q6H PRN pain 11/21/23 02/26/24 Lactobacillus rhamnosus GG 10 1 cap PO DAILY 11/24/23 02/26/24 billion cell capsule (Culturelle) acetaminophen 500 mg tablet 1,000 mg PO BID 11/24/23 02/26/24 calcium 200 mg (as 2 cap PO DAILY 11/24/23 02/26/24 carbonate)-vitamin D3 10 mcg (400 unit) capsule cholecalciferol (vitamin D3) 50 4,000 unit PO DAILY 11/24/23 02/26/24 mcg (2,000 unit) capsule rosuvastatin 10 mg tablet 10 mg PO QPM 02/26/24 02/26/24 ticagrelor 90 mg tablet (Brilinta) 90 mg PO BID 02/26/24 02/26/24 Previous Rx's ?Medication ?Instructions ?Recorded clopidogrel 75 mg tablet 75 mg PO DAILY 20 days #20 tabs 11/25/23 rosuvastatin 20 mg tablet 20 mg PO HS #30 tabs 11/25/23 oxycodone 5 mg capsule 5 mg PO Q6H PRN pain #14 caps 02/26/24 Allergies Allergy/AdvReac Type Severity Reaction Status Date / Time aluminum Allergy Verified 01/11/25 20:11 cefuroxime (From Ceftin) Allergy Verified 01/11/25 20:11 diphtheria toxoid,fluid Allergy Verified 01/11/25 20:11 doxycycline Allergy Verified 01/11/25 20:11 gabapentin Allergy Verified 01/11/25 20:11 grass pollen Allergy Verified 01/11/25 20:11 lisinopril Allergy Verified 01/11/25 20:11 mold Allergy Verified 01/11/25 20:11 Penicillins Allergy Verified 01/11/25 20:11 pneumococcal 7-valent Allergy Verified 01/11/25 20:11 conjugate to (From Prevnar) pneumococcal vaccine Allergy Verified 01/11/25 20:11 Sulfa (Sulfonamide Allergy Verified 01/11/25 20:11 Antibiotics) Review of Systems Status of ROS: Reports: 6 or more systems reviewed and unremarkable except as noted in History and below [facility] Medical History Obstructive sleep apnea of adult (11/26/09) ?G47.33 - Obstructive sleep apnea (adult) (pediatric) (ICD-10) Malignant melanoma of left lower limb, including hip (12/06/21) ?C43.72 - Malignant melanoma of left lower limb, including hip (ICD-10) Osteoarthritis of left hip (12/17/12) ?M16.12 - Unilateral primary osteoarthritis, left hip (ICD-10) Personal history of allergy to antibiotic agent (05/17/21) ?Z88.1 - Allergy status to other antibiotic agents (ICD-10) 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) ?N99.3 - Prolapse of vaginal vault after hysterectomy (ICD-10) Primary insomnia (07/17/15) ?F51.01 - Primary insomnia (ICD-10) Personal history of colonic polyps (05/27/13) ?Z86.010 - Personal history of colonic polyps (ICD-10) OAB (overactive bladder) (02/14/19) ?N32.81 - Overactive bladder (ICD-10) Nocturnal polyuria (02/14/19) ?R35.81 - Nocturnal polyuria (ICD-10) Left carotid stenosis (03/19/17) ?I65.22 - Occlusion and stenosis of left carotid artery (ICD-10) Hyperlipidemia (05/17/21) ?E78.5 - Hyperlipidemia, unspecified (ICD-10) HTN (hypertension) (11/13/09) ?I10 - Essential (primary) hypertension (ICD-10) Hallux rigidus of right foot (07/07/12) ?M20.21 - Hallux rigidus, right foot (ICD-10) GERD (gastroesophageal reflux disease) (06/29/09) ?K21.9 - Gastro-esophageal reflux disease without esophagitis (ICD-10) Fibromyalgia (05/17/21) ?M79.7 - Fibromyalgia (ICD-10) DDD (degenerative disc disease), cervical (10/27/17) ?M50.30 - Other cervical disc degeneration, unspecified cervical region (ICD-10) Daytime somnolence (02/14/19) ?R40.0 - Somnolence (ICD-10) Cervicalgia ?M54.2 - Cervicalgia (ICD-10) Bladder prolapse, female, acquired (06/19/15) ?N81.10 - Cystocele, unspecified (ICD-10) Arthritis of carpometacarpal (CMC) joints of both thumbs (02/06/17) ?M18.0 - Bilateral primary osteoarthritis of first carpometacarpal joints (ICD-10) Allergic rhinitis, cause unspecified ?J30.9 - Allergic rhinitis, unspecified (ICD-10) Adverse reaction to sulfa antibiotic (11/03/13) ?T37.0X5A - Adverse effect of sulfonamides, initial encounter (ICD-10) Surgical History Status post intraocular lens implant (04/10/21) ?Z96.1 - Presence of intraocular lens (ICD-10) Status post left hip replacement (05/17/21) ?Z96.642 - Presence of left artificial hip joint (ICD-10) Family History Son Colon cancer Sister Diabetes High blood pressure Father Heart disease Mother Alzheimers disease Social History What is your current living situation?: I presently have a place to live Problems where you live: no known problems Problems where you live details: N/A In the past 12 months, utilities in danger of being shut off: no In past 12 months, lack of transportation kept you from medical appts, meetings, work, or getting things needed for daily living: no In the past 12 mos, have been you worried that your food would run out before you had money to buy more?: never true In the past 12 mos, the food you bought just didn't last and you didn't have money to buy more?: never true Highest level of school completed/degree received: Associate degree: occupational, technical, vocational program Smoking Status: Never smoker Do you use any of these nicotine containing products: None Second hand tobacco smoke exposure: No How often do you have a drink containing alcohol: 4 or more times a week How many standard drinks containing alcohol do you have on a typical day: 1 or 2 AUDIT-C Alcohol total score: 4 Non-prescribed substance use: denies use Caffeine: Yes How often does anyone, including family, friends and others, physically hurt you: never How often does anyone, including family, friends and others, insult or talk down to you: never How often does anyone, including family, friends and others, threaten you with harm: never How often does anyone, including family, friends and others, scream or curse at you: never service: No Exam Narrative: Exam Narrative: Pleasant. NAD. Breathing easily. Head looks atraumatic. Moving all extremities without notable difficulty. Area in question of injury is the right mid forearm. This is been wrapped. Removing the wrap reveals a v-shaped 1 in in total laceration. Gapping. Slight oozing of blood with manipulation. Const: Vital Signs, click to edit/add: Vital Signs - 24 hr 01/11/25 20:10 Temperature 98.0 F Pulse Rate [Right Pulse Oximeter] 68 Respiratory Rate 18 Blood Pressure [Ri ght Upper Arm] 155/77 H Pulse Oximetry 99 Oxygen Delivery Me thod Room Air Documenting provider has reviewed patient's vital signs: yes Course Vital Signs Vital signs: Initial Vital Signs Temperature 98.0 F 01/11/25 20:10 Temperature Source Temporal Artery Scan 01/11/25 20:10 Pulse Rate 68 01/11/25 20:10 Respiratory Rate 18 01/11/25 20:10 Blood Pressure 155/77 H 01/11/25 20:10 Blood Pressure Mean 103 01/11/25 20:10 Blood Pressure Position Sitting 01/11/25 20:10 Pulse Oximetry 99 01/11/25 20:10 Oxygen Delivery Method Room Air 01/11/25 20:10 Vital Signs Temperature 98.0 F 01/11/25 20:10 Pulse Rate 68 01/11/25 20:10 Respiratory Rate 18 01/11/25 20:10 Blood Pressure 155/77 H 01/11/25 20:10 Pulse Oximetry 99 01/11/25 20:10 Oxygen Delivery Method Room Air 01/11/25 20:10 Temperature 98.0 F 01/11/25 21:35 Pulse Rate 70 01/11/25 21:35 Respiratory Rate 18 01/11/25 21:35 Blood Pressure 145/68 H 01/11/25 21:35 Pulse Oximetry 99 01/11/25 21:34 Oxygen Delivery Method Room Air 01/11/25 21:34 Medications Administered Medications: Discontinued Medications Generic Name Dose Route Start Last Admin Trade Name Freq PRN Reason Stop Dose Admin Lidocaine/Epinephrine 10 ml 01/11/25 20:57 01/11/25 21:30 Lidocaine 1%-Epi 1:100,000 INFILTRATI 01/11/25 20:58 10 ml ONCE ONE Administration Medical Decision Making MDM Narrative Medical decision making narrative: Does not have any evidence of distal compromise from this injury. Should be closed. I did return to inject with lidocaine with epinephrine. Following anesthesia did irrigate under some pressure irrigation with normal saline. Tolerated well. Did begin to attempt to close with Ethilon suture but skin is quite soft. This triangular aspect does not have enough substance to work with. It is in that way like a skin tear I suppose. Ultimately placed benzoin and Steri-Strips with good wound approximation and control of bleeding. Bandage in light compression dressing applied See patient discharge plan for further discussion Hopefully these Steri-Strips can stay on for at least 5 days or so. Avoid soaking or significant wetting. Avoid antibiotic ointment as it might cause the strips to peel up. As strips peel-away, can trim away the edges if needed. Let them fall off naturally in the end. Report spreading redness after 2 days, marked increase in swelling or redness or pain, purulent drainage. Discharge Plan Discharge Clinical Impression: Forearm laceration Patient Disposition: Home w/ Parent or Adult Condition: Improved Additional Instructions: Hopefully these Steri-Strips can stay on for at least 5 days or so. Avoid soaking or significant wetting. Avoid antibiotic ointment as it might cause the strips to peel up. As strips peel-away, can trim away the edges if needed. Let them fall off naturally in the end. Report spreading redness after 2 days, marked increase in swelling or redness or pain, purulent drainage. Prescriptions: No Action acetaminophen 500 mg tablet 1,000 mg PO BID Rx Instructions: PLUS AN ADDITIONAL DOSE IN THE MIDDLE OF THE DAY NEEDED calcium carbonate-vitamin D3 200 mg-10 mcg (400 unit) capsule 2 cap PO DAILY cholecalciferol (vitamin D3) 50 mcg (2,000 unit) capsule 4,000 unit PO DAILY Culturelle 10 billion cell capsule 1 cap PO DAILY clopidogrel 75 mg Tablet 75 mg PO DAILY 20 Days Qty: 20 0RF rosuvastatin 20 mg tablet 20 mg PO HS Qty: 30 0RF losartan 50 mg tablet 50 mg PO DAILY albuterol sulfate 90 mcg/actuation HFA aerosol inhaler 1 - 2 puff INHALATION Q4H PRN (Reason: dyspnea) estradiol [Yuvafem] 10 mcg tablet 10 mcg vaginal 3XW diclofenac sodium 75 mg tablet,delayed release (DR/EC) 75 mg PO DAILY oxycodone 5 mg tablet 5 mg PO Q6H PRN (Reason: pain) cetirizine [24Hour Allergy] 10 mg tablet 10 mg PO DAILY PRN coQ10 (ubiquinol) [Qunol Eduardo CoQ10] 100 mg capsule 100 mg PO DAILY rosuvastatin 10 mg tablet 10 mg PO QPM Brilinta 90 mg tablet 90 mg PO BID oxycodone 5 mg capsule 5 mg PO Q6H PRN (Reason: pain) Qty: 14 0RF Follow Up/Referrals: Vaishali Baeza MD [Primary Care Provider, Family Practice] Stand Alone Forms: [facility] Info Instructions
[2025-01-11] MEDS: LIDOCAINE 1%-EPI 1:100,000 10 ML INFILTRATI (21:30)
[2025-01-11 21:34] VITALS: BP 145/68; PULSE 70; RESP 18; TEMP 36.7; O2SAT 99
[2025-01-11 21:35] VITALS: BP 145/68; PULSE 70; RESP 18; TEMP 36.7
== END 2025-01-11 21:36 | disposition home or self-care (01) ==
LOC: ED 21:31
PROVIDERS: Emergency Provider Family Medicine; PCP Family Medicine
DX: S51.811A Laceration without foreign body of right forearm, initial encounter (principal); W22.8XXA Striking against or struck by other objects, initial encounter
CPT/HCPCS: 99282; 99284

== ENCOUNTER 2025-03-29 17:41 | Emergency (ER) | payer MEDICARE, SELFPAY ==
--- OUTSIDE RECORDS SUMMARY | 2025-03-21 08:00 | XMS_ITS | Encounter Summary ---
Author Organization [facility] Address [address] [place] [id number] Care Team Providers Care Turntable Operator Name Role Phone Elsewhere, Pcp Primary Care Provider Unavailabl e Reason for Visit * Reason Onset Date Comments Pre-visit Intake 03/21/2025 * Appointment Request (Routine) - Authorized Specialty Diagnoses / Procedures Referred By Darin mullen Referred To Contact Neurology Referral ID Status Reason Start Date Expiration Date V isits Requested Visits Authorized [id number] Authorized 12/05/2024 03/07/2026 1 1 Encounter Details Date Type Department Care Team (Latest Contact Info) Description 03/21/2025 8:00 AM CDT Clinical Communication Virtual Review in [place], [place] [address] [place] [address] Pre-visit Intake Social History Tobacco Use Types Packs/Day Years Used Date Smoking Tobacco: Never Passive Smoke Exposure: Past Smokeless Tobacco: Never Tobacco Cessation:Counseling Given: Not Answered Alcohol Use Standard Drinks/Week Comments Yes 7 (1 standard drink = 0.6 oz pur e alcohol) Daily caffeine [facility] Utilities Answer Date Recorded In the past 12 months has e electric, gas, oil, or water company [...] by your partner or ex-partner? No 03/03/2024 Hunger Vital Sign Answer Date Recorded Within [...] PHQ-9 Total Score (max 27) 1 01/26 Housing Stability Answer Date Recorded What is your living situation today? I have a [facility] place to live 03/03/2024 Education Answer Date Recorded What is the highest level of school you have completed or the highest degree you have received? Associate degree: occupational, technical, or vocational program 09/27/2022 Comments No Sex and Gender Information Value Date Recorded Sex Assigned at Female 06/28/2018 10:53 AM FIREWORKS ASSEMBLER Legal Sex Female 12:23 PM FIREWORKS ASSEMBLER Gender Identity Female 06/28/2018 10:53 AM FIREWORKS ASSEMBLER Sexual Orientation Straight 06/28/2018 10 :53 AM FIREWORKS ASSEMBLER documented as of this encounter Plan of Treatment Upcoming Encounters Date Type Department Care Team (Late st Contact Info) Description 04/05/2025 12:30 PM CDT Comprehensive Visit Department of Neurology in [place], [place] [address] [place] [address] Queta Quinn M.D. [address] [place] [address] documented as of this encounter Visit Diagnoses Not on filedocumented in this encounter Additional Health Concerns Assessment Noted Time PHQ-9 Depression Total Score: 1 01/27/20 24 8:21 AM CDT documented as of this encounter Care Teams Turntable Operator Relationship Specialty Start Date End Date Elsewhere, Pcp PCP - General Family Medicine 06/04/21 documented as of this encounter
--- OUTSIDE RECORDS SUMMARY | 2025-03-22 11:46 | XMS_ITS | Encounter Summary ---
Author Organization [facility] Address [address] [place] [address] Care Team Providers Care Supplemental Manager Name Role Phone Elsewhere, Pcp Primary Care Provider Unavailabl e Reason for Referral * MRI/CAT/PET Scan (Routine) - Closed Specialty Diagnoses / Procedures Referred By Darin mullen Referred To Contact Radiology Diagnoses Transient Ischemic Attack Procedures MR Neck Angiogram without and with IV Contrast Queta Quinn M.D. [address] [place] [address] Phone: tel: fax: [facility] Referral ID Status Reason Start Date Expiration Date Visits Re quested Visits Authorized [id number] Closed 11/17/2024 02/17/2026 1 1 Reason for Visit * MRI/CAT/PET Scan (Routine) - Closed Specialty Diagnoses / Procedures Referred By Darin mullen Referred To Contact Radiology Diagnoses Transient Ischemic Attack Procedures MR Neck Angiogram without and with IV Contrast Queta Quinn M.D. [address] [place] [address] Phone: tel: fax: [facility] Referral ID Status Reason Start Date Expiration Date Visits Re quested Visits Authorized [id number] Closed 11/17/2024 02/17/2026 1 1 Encounter Details Date Type Department Care Team (Latest Contact Info) Description 03/22/2025 11:46 AM CDT - 03/22/2025 11:59 PM CDT Hospital Encounter Department of Radiology, [facility] in [place], [place] [address] [place] [address] Queta Quinn M.D. [address] [place] [address] Transient Ischemic Attack Discharge Disposition: Home or Self Care Social History Tobacco Use Types Packs/Day Years Used Date Smoking Tobacco: Never Passive Smoke Exposure: Past Smokeless Tobacco: Never Alcohol Use Standard Drinks/Week Comments Yes 7 (1 standard drink = 0.6 oz pur e alcohol) Daily caffeine [facility] Utilities Answer Date Recorded In the past 12 months has e [employer], gas, oil, or water [employer] threatened to shut off services in your [...] your living situation today? I have a [facility] place to live 03/03/2024 Education Answer Date Recorded What is the highest level of school you have completed or the highest degree you have received? Associate degree: occupational, technical, or vocational program 09/27/2022 Comments No Sex and Gender Information Value Date Recorded Sex Assigned at Female 06/28/2018 10:53 AM METAL WIRE COATING OPERATOR Legal Sex Female 12:23 PM METAL WIRE COATING OPERATOR Gender Identity Female 06/28/2018 10:53 AM METAL WIRE COATING OPERATOR Sexual Orientation Straight 06/28/2018 10 :53 AM METAL WIRE COATING OPERATOR documented as of this encounter Last Filed Vital Signs Vital Sign Reading Time Taken Comments Blood Pressure - - Pulse 72 03/22/2025 1:53 PM CDT Temperature - - Respiratory Rate - - Oxygen Saturation 100% 03/22/2025 1:53 PM CDT Inhaled Oxygen Concentration - - Weight - - Height - - Body Mass Index - - documented in this encounter Medications at Time of Discharge acetaminophen (TYLENOL) 500 mg tablet Take 2 tablets (1,000 mg total) by mouth every 6 (six) hours as needed for mild pain or score 1-3 of 10 or moderate pain or score 4-6 of 10. 12/29/2023 albuterol 90 mcg/actuation inhaler Inhale 1-2 puffs every 4 (four) hours as needed. 04/20/2024 Brilinta 90 mg tablet Take 90 mg by mouth 2 (two) times a day. 01/22/2024 calcium carbonate-vitami n D3 200 mg (500 mg) -400 unit [...] 1 capsule by mouth daily. 05/05/2017 losartan (Cozaar) 25 mg tablet take 1 tablet (25 mg) by mouth once daily in the evening losartan (COZAAR) 50 mg tablet Take 50 mg by mouth at bedtime. Provider added 25 mg at bedtime more than a month ago. 05/05/2017 oxyCODONE (ROXICODONE) 5 mg immediate release tablet Take 1 tablet by mouth every 6 (six) hours as needed for pain. Takes 1 at bedtime then additional during the day as needed 11/26/2023 rosuvastatin (Crestor) 20 mg tablet Take 1 tablet by mouth at bedtime. 03/28/2024 triamcinolone (Nasacort) 55 mcg/actuation nasal spray Administer 2 sprays into each nostril daily. documented as of this encounter Nursing Notes * Laney Sherwood RMarthaN. - 03/22/2025 12:45 PM CDT Radiology Minimal Sedation Screening (Ativan) Does the patient have a responsible adult accompanying them? Yes - record name and phone number of accompanying adult Belly Dancer,Henrik Stock (Spouse) Is the patient oxygen dependant? No - continue. Is patient scheduled for an MR proctogram or neuro functional MR? No - continue. Does patient have a hx of narrow angle glaucoma? No - continue. Does patient have an allergy to lorazepam or other benzodiazepines? No - continue. Has the patient taken any other benzodiazepines or sedating medications today? No - continue. Is the patient scheduled for a MR guided breast biopsy, or do they have any other appointments today that may require attention to detail or informed consent? No - continue. Is the patient 18 and older: Yes - follow Radiant medication guidelines to titrate sedation as appropriate. documented in this encounter Plan of Treatment Upcoming Encounters Date Type Department Care Team (Late st Contact Info) Description 04/05/2025 12:30 PM CDT Comprehensive Visit Department of Neurology in [place], [place] [address] [place] [address] Queta Quinn M.D. [address] [place] [address] documented as of this encounter Procedures Procedure Name Priority Date/Time Associated Diagnosis Comments MR NECK ANGIOGRAM WITHOUT AND WITH IV CONTRAST RAD - Routine (most inpatients and all outpatients) 03/22/2025 1:51 PM CDT Transient Ischemic Attack documented in this encounter Results * MR Neck Angiogram without and with IV Contrast (03/22/2025 1:51 PM CDT) Anatomical Region Laterality Modality Neck, Neuroradiology RST LOS , Neuroradiology ARZ LOS, Neuroradiology FLA LOS N/A Magnetic Resonance Impressions 03/22/2025 4:56 PM CDT Mild progression of a now approximately 40-50% caliber atherosclerotic stenosis of the proximal right ICA. Narrative 03/22/2025 4:56 PM CDT EXAM: MR NECK ANGIOGRAM WITHOUT AND WITH IV CONTRAST COMPARISON: Neck MRA 12/22/2023 FINDINGS: The atherosclerotic stenosis of the proximal right ICA has slightly increased, now measuring approximately 40-50% by NASCET criteria, compared to 30% previously. No convincing intraplaque hemorrhage. Otherwise no significant interval change. Again seen is partially retropharyngeal course of both internal carotid arteries. Atherosclerotic changes without significant narrowing of the proximal left ICA; mild distal left common carotid artery narrowing. Patent bilateral vertebral arteries, without high-grade stenosis, both contributing to the basilar with the left larger than the right. Procedure Note Lukas Tamez M.D. - 03/22/2025 EXAM: MR NECK ANGIOGRAM WITHOUT AND WITH IV CONTRAST COMPARISON: Neck MRA 12/22/2023 FINDINGS: The atherosclerotic stenosis of the proximal right ICA hasslightly increased, now measuring approximately 40-50% by NASCET criteria,compared to 30% previously. No convincing intraplaque hemorrhage. Otherwise no significant interval change. Again seen is partiallyretropharyngeal course of both internal carotid arteries. Atheroscleroticchanges without significant narrowing of the proximal left ICA; milddistal left common carotid artery narrowing. Patent bilateral vertebral arteries, without high-grade stenosis, bothcontributing to the basilar with the left larger than the right. IMPRESSION: Mild progression of a now approximately 40-50% caliber atheroscleroticstenosis of the proximal right ICA. Queta RUIZ MRI PROCEDURES Final R esult documented in this encounter Visit Diagnoses Diagnosis Transient Ischemic Attack documented in this encounter Administered Medications Inactive Administered Medications - up to 3 most recent administrations Medication Order MAR Action Action Date Dose Rate Site gadobutrol injection 0.01-30 mL (Gadavist) 0.01-30 mL, intravenous, Once in imaging, contrast, Starting on Thu03/22/25 at 1227, For 1 dose, Imaging Protocol Orders, Dose per Radiant Medication Guidelines Intrathecal doses greater than 0.25 mL not recommended. Given 03/22/2025 1:43 PM CDT 7 mL LORazepam tablet 0.5 mg (Ativan) 0.5 mg, sublingual, As needed, anxiety, Starting on Thu03/22/25 at 1227, For 4 doses, Imaging Protocol Orders, 1 mg by mouth once as needed for anxiety related to radiology study. May administer 0.5 mg dose if patient prefers. May repeat every 15 minutes if anxiety persists (2 mg maximum dose). Given 03/22/2025 12:43 PM CDT 1 mg sodium chloride (PF) 0.9 % injection 1-100 mL 1-100 mL, intravenous, Once, On Thu03/22/25 at 1245, For 1 dose, Imaging Protocol Orders, Dose per [facility]iant Medication Guidelines Given 03/22/2025 1:44 PM CDT 20 mL documented in this encounter Additional Health Concerns Assessment Noted Time PHQ-9 Depression Total Score: 1 01/27/20 24 8:21 AM CDT documented as of this encounter Care Teams Supplemental Manager Relationship Specialty Start Date End Date Elsewhere, Pcp PCP - General Family Medicine 06/04/21 documented as of this encounter
--- OUTSIDE RECORDS SUMMARY | 2025-03-29 17:45 | XMS_ITS | Clinical Summary ---
Author Organization [facility] Address [address] [place] [id number] Care Team Providers Care Beef Farmer Name Role Phone Vaishali Baeza MD Primary Care Provide r Waldo Bethea MD Unavailable [phone] Allergies Active Allergy Reactions Criticality Noted Date [...] COQ-10 30 MG CAP 1 daily 0 008 Active Cholecalcifero l, Vitamin D3, (VITAMIN D-3) 5,000 unit tab Take 1 tablet by mouth once daily. 0 015 Active acetaminophen (TYLENOL EXTRA STRENGTH) 500 mg tablet Take 1 tablet by mouth every 6 hours if needed. Max acetaminophen dose: 4000mg in 24 hrs. 0 018 Active lactobacillus rhamnosus, GG, (CULTURELLE) 10 billion cell capsule Take 1 Cap by mouth. 017 Active calcium carbonate-aurelia min D3 (CALCIUM PETITES) 200 mg (500 mg) -400 unit cap Take 2 Tabs by mouth. 017 Active albuterol HFA (PRO-AIR; VENTOLIN; PROVENTIL) 90 mcg/actuation inhalerIndicat ions:Bronchiti s INHALE 1-2 PUFFS BY MOUTH EVERY 4 HOURS IF NEEDED (COUGH OR SHORTNESS OF BREATH). 6.7 Each 5 024 Active losartan (COZAAR) 50 mg tabletIndicati ons:HTN (hypertension) Take 1 Tablet (50 mg) by mouth once daily. In the morning 90 Tablet 3 024 Active fluticasone (50 mcg per actuation) nasal solution (FLONASE) Inhale 2 Sprays in both nostrils once daily. 025 Active hydrOXYzine HCL 25 mg tabletIndicati ons:Anxiety Take 0.5-1 Tablets (12.5-25 mg) by mouth every 8 hours if needed for Anxiety. Can make you drowsy. 15 Tablet 025 Active ticagrelor (Brilinta) 90 mg tabletIndicati ons:Cerebrovas cular accident (CVA), unspecified mechanism (HC) Take 1 Tablet (90 mg) by mouth two times daily. 180 Tablet 3 025 Active oxyCODONE (ROXICODONE) 5 mg immediate release tabletIndicati ons:Hip pain, left,Spinal stenosis of lumbar region with neurogenic claudication,O pen fracture of sacrum with routine healing, unspecified fracture morphology, subsequent encounter Take 1 Tablet (5 mg) by mouth 3 times daily if needed for Pain. 24 Tablet 025 Active rosuvastatin (CRESTOR) 20 mg tabletIndicati ons:Cerebrovas cular accident (CVA) due to thrombosis of cerebral artery (HC) TAKE 1 TABLET BY MOUTH AT BEDTIME 90 Tablet 2 025 Active losartan (COZAAR) 25 mg tabletIndicati ons:HTN (hypertension) Take 1 Tablet (25 mg) by mouth once daily. In the evening 90 Tablet 1 025 Active rosuvastatin (CRESTOR) 20 mg tabletIndicati ons:Cerebrovas cular accident (CVA) due to thrombosis of cerebral artery (HC) TAKE 1 TABLET BY MOUTH AT BEDTIME 90 Tablet 3 024 2024 Discontinued losartan (COZAAR) 25 mg tabletIndicati ons:HTN (hypertension) Take 1 Tablet (25 mg) by mouth once daily. In the evening 90 Tablet 3 024 2024 Discontinued(* Availability/F ormulary change/Cost of medication) oxyCODONE 5 mg immediate release tabletIndicati ons:Hip pain, left,Spinal stenosis of lumbar region with neurogenic claudication,O pen fracture of sacrum with routine healing, unspecified fracture morphology, subsequent encounter Take 1 Tablet (5 mg) by mouth 3 times daily if needed for Pain. 30 Tablet 025 2024 Discontinued(R eorder (E-cancel not sent)) Active Problems Problem Noted Date Diagnosed Date Stage 3a chronic kidney disease 01/23/2025 Atherosclerosis of aorta 01/07/2024 Cerebrovascular accident (CV A) due to thrombosis of cerebral artery 11/26/2023 Malignant melanoma of skin of lower extremity Overview (03/05/2022): Added automatically from request for surgery [id number] Retinal detachment with retinal defect 1 Overview [...] Encounters Date Type Department Care Team Description 03/29/2025 Nurse Triage [facility] [address] [place] [address] Vaishali Baeza MD Low Blood Pressure 03/22/2025 Refill [facility] [address] [place] [address] Vaishali Baeza MD Refill Request (Losartan, Rosuvastatin) 03/06/2025 10:15 AM CDT Office Visit [facility] [address] [place] [facility] [address] Ofelia Vázquez PA Urinary Problem 03/06/2025 Travel 02/21/2025 8:25 AM CDT Office Visit [facility] [address] [place] [address] Vaishali Baeza MD Blood Pressure (Keeping track and at one point she wondered if she should stop her eving pill as B/P was down. Has went up a little again. Did not take pill this am.); Leg Swelling (Was seen by dermatology and was told her right leg was swollen. Has had issues with the right knee in the past. Concerns her.); ER Follow up (Seen Dr. Marin. She feels she may have forgotten she had Stage 3a chronic kidney disease until he mention it./[facility] ED on 01/11/2025 for a RIGHT Arm laceration /Slipped getting out of the shower//) 02/21/2025 Travel 01/30/2025 Telephone [facility] [address] [place] [address] Vaishali Baeza MD Medication Management (Brilinta 90 mg tablet. gerneric for insurance to cover) 01/23/2025 12:35 PM CDT Office Visit [facility] [address] [place] [address] Efrain Marin MD ER Follow up ([facility] ED on 01/11/2025 for a RIGHT Arm laceration /Slipped getting out of the shower) 01/23/2025 Travel 12/29/2024 10:30 AM CDT Office Visit [facility] [address] [place] [address] Boby Echeverria MD Consult (cerumen removal/Mixed conductive and sensorineural hearing loss) 12/29/2024 Orders Only [facility] [address] [place] [phone] Ying Teran PA <No scans attached> 12/29/2024 Travel from Last 3 Months Immunizations Immunization Administration [...] History Relation Name Comments Heart Disease Father [place] Other Mother Alzheimers Other Sister 3 fibromyalgia, [...] Sex Assigned at Female 08/03/2020 9:53 AM REGIONAL 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 Legal Sex Female 5:25 AM REGIONAL EHS MANAGER Gender Identity Female 08/03/2020 9:53 AM REGIONAL EHS MANAGER Sexual Orientation Not on file Occupation Industry [...] Sign Reading Time Taken Comments Blood Pressure 138/74 03/06/2025 10:24 AM CDT Pulse 84 03/06/2025 10:24 AM CDT Temperature 36.4 C (97.5 F) 10/26/2024 11:41 AM CDT Respiratory Rate 18 04/28/2024 7:48 PM CDT Oxygen Saturation 98% 03/06/2025 10:24 AM CDT Inhaled Oxygen Concentration - - Weight 68.7 kg (151 lb 8 oz) 03/06/2025 10:24 AM CDT Height 156.2 cm (5' 1.5) 08/30/2024 2:15 PM REGIONAL EHS MANAGER Body Mass Index 28.16 08/30/2024 2:15 PM REGIONAL EHS MANAGER Plan of Treatment Upcoming Encounters Date Type Department Care Team (Late st Contact Info) Description 04/04/2025 1:50 PM CDT Office Visit [facility] [address] [place] [address] Vaishali Baeza MD [address] [place] [address] 04/24/2025 11:00 AM CDT Office Visit [facility] [address] [place] [address] Waldo Bethea MD [address] [place] [address] 05/17/2025 11:15 AM CDT Office Visit [facility] [address] [address] Karla Deena SteffDO [address] [place] [address] Health Maintenance Due Date Last Done Comments COVID-19 vaccine series ( season) 2025 07/09/2024, 05/14/2023, 05/14/2023, Additional history exists Influenza Vaccine (#1) 2025 , 05/22/2023, 06/12/2022, Additional history exists BMI (ht and wt [...] for age 65+ Completed 2018, 03/18/2016, 04/19/2013 Zoster (shingles) series for age 50+ Completed 06/13/2019, 03/09/2019, 05/10/2013 RSV vaccine for adults or Completed 05/22/2023 Hepatitis B series for 19+ Aged Out N o longer eligible based on patient's age to complete this topic Procedures Procedure Name Priority Date/Time Associated Diagnosis Comments URINALYSIS MACROSCOPIC - [facility] ONLY POC DIP (QUEST) Routine 03/06/2025 1:19 PM CDT Lower urinary tract symptoms (LUTS) URINE CULTURE Routine 03/06/2025 1:18 PM CDT Lower urinary tract symptoms (LUTS) URINALYSIS MICROSCOPIC Routine 03/06/2025 1:18 PM CDT Lower urinary tract symptoms (LUTS) XR DXA BONE DENSITY 2 SITES AXIAL Routine 04/05/2019 11:28 AM CDT Menopause from Last 3 Months or Most Recently Relevant to Health Maintenance Results * (ABNORMAL) POCT Urinalysis Dipstick Only [[id number]] (03/06/2025 1:19 PM CDT) PH 5.5 5.0 - 8.0 [facility] SPECIFIC GRAVITY < OR = 1.005 1.001 - 1.035 [facility] Comment: Specific [place] values resulted are outside the analytical measurement range of this device. Recommend repeat/additional testing as clinically indicated. GLUCOSE NEGATIVE NEGATIVE [facility] BILIRUBIN NEGATIVE NEGATIVE [facility] KETONES NEGATIVE NEGATIVE [facility] OCCULT BLOOD TRACE(A) NEGATIVE [facility] PROTEIN NEGATIVE NEGATIVE [facility] NITRITE NEGATIVE NEGATIVE [facility] LEUKOCYTE ESTERASE NEGATIVE NEGATIVE [facility] Urine URINE SPECIMEN / Unknown 03/06/2025 1:19 PM CDT 03/06/2025 1:19 PM CDT Ofelia HESS URINE Final Result [facility] [address] [place] [address], [facility] [address] [place] [address] * URINALYSIS MICROSCOPIC [61176.1] - routine (03/06/2025 1:18 PM CDT) RBC 0-2 0-2, None Seen /HPF 03/06/2025 11:48 PM CDT [facility] WBC 0-2 0-2, 3-5, None Seen /HPF 03/06/2025 11:48 PM CDT [facility] BACTERIA None Seen None Seen, Rare, Few Bacteria/ HPF 03/06/2025 11:48 PM CDT [facility] EPITHELIAL CELLS None Seen None Seen, Few Epi/HPF 03/06/2025 11:48 PM CDT [facility] HYALINE CASTS 0-2 0-2, 3-5 /LPF 03/06/2025 11:48 PM CDT [facility] Urine URINE SPECIMEN / Unknown Non-Blood / Unknown 03/06/2025 1:18 PM CDT 03/06/2025 1:18 PM CDT Ofelia HESS URINE Final Result [facility] [address] [place] [address], [place] * URINE CULTURE [[id number]] (03/06/2025 1:18 PM CDT) CULTURE No growth (<1,000 CFU/mL) 03/08/2025 10:25 AM CDT [facility] Urine URINE SPECIMEN / Unknown Non-Blood / Unknown 03/06/2025 1:18 PM CDT 03/06/2025 1:18 PM CDT Ofelia HESS MICROBIOLOGY Final Result [facility] [address] [address], [place] * (ABNORMAL) XR DXA BONE DENSITY 2 SITES AXIAL (04/05/2019 11:28 AM CDT) Anatomical Region Laterality Modality Spine, HIPS, HIPL, HIPR Other Narrative 04/11/2019 10:38 AM CDT Please see scanned document for results of this study. Vaishali GUADALUPE Final Result from Last 3 Months or Most Recently Relevant to Health Maintenance Insurance BLUE [employer]OSS MEDICARE ADVANTAGE MR MEDICARE PART A HB ONLY Advance Directives Documents on File Type Date Recorded Patient Teaseler Expl anation Healthcare Directive 11/14/2014 2:43 PM UPD ATED LIVING WILL/POWER OF TREASURY MANAGER FOR HEALTH CARE 03/20/00, [facility], 11/14/14 Care Teams Beef Farmer Relationship Specialty Start Date End Date Vaishali Baeza MD [address] [place] [address] PCP - General 01/09/10 Waldo Bethea MD [address] [facility] [address] Sports Medicine 06/25/12
--- OUTSIDE RECORDS SUMMARY | 2025-03-29 17:45 | XMS_ITS | Clinical Summary ---
Author Organization [facility] Address [address] [place] [address] Care Team Providers Care Real Estate Transaction Manager Name Role Phone Elsewhere, Pcp Primary Care Provider Unavailabl e Source Comments Patient records contain information from all sites at [facility]. For routine questions regarding patient records, call [phone] during business hours, M-F 8:00 AM - 5:00 PM Central Time. Record requests for emergency care only can be directed to [phone] at any time.[facility] Allergies Active Allergy Reactions Criticality Noted Date [...] a complete record from that organization. calcium carbonate-aurelia min D3 200 mg (500 mg) -400 unit capsule Take 2 tablets by mouth at bedtime. 7 Active cholecalcifero l (VITAMIN D3) 50 mcg (2,000 Unit) capsule [...] or score 4-6 of 10. 4 Active Additional Information Patient taking differently:1,000 mg oral3 times daily, Reported on 03/21/2025 hydrOXYzine (ATARAX) 25 mg tablet Take 1 tablet (25 mg total) by mouth every 8 (eight) hours as needed for anxiety. 15 tablet 4 Active Additional Information Patient not taking.Reported on 03/21/2025 Brilinta 90 mg tablet Take 90 mg by mouth 2 (two) times a day. 4 Active rosuvastatin (Crestor) 20 mg tablet Take 1 tablet by mouth at bedtime. 4 Active albuterol 90 mcg/actuation inhaler Inhale 1-2 puffs every 4 (four) hours as needed. 4 Active losartan (Cozaar) 25 mg tablet take 1 tablet (25 mg) by mouth once daily in the evening Active triamcinolone (Nasacort) 55 mcg/actuation nasal spray Administer 2 sprays into each nostril daily. Active dextromethorph an-guaiFENesin (Mucinex DM) 30-600 mg per 12 hr tablet Take 1 tablet by mouth at bedtime as needed for cough. Currently taking nightly for congestion. 03/21/20 25 Discontin ued(Thera py completed ) meclizine (Antivert) 12.5 mg tablet Take 12.5 mg by mouth 3 (three) times a day as needed for dizziness. Has not taken this recently. 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 Retina flat. Intraocular pressure acceptable. OK off drops Doing well with no correction--happy with vision! Continue to address dry eyes with artificial tears and dry eye mask (e.g., Thermalon) 5 min at night for meibomian gland dysfunction Discussed with patient retinal detachment precautions Assessment & Plan (09/26/2021 12:07 PM SKATE BOARDER): Exam appropriate for post-op month #3. Retina flat. Intraocular pressure acceptable. OK off drops Doing well with no correction--happy with vision! Refraction performed last visit. Continue to address dry eyes with artificial tears and dry eye mask (e.g., Thermalon) 5 min at night for meibomian gland dysfunction Discussed with patient retinal detachment precautions Assessment & Plan (07/11/2021 12:32 PM SKATE BOARDER): Exam appropriate for post-op month #1. Retina [...] Encounters Date Type Department Care Team Description 03/22/2025 11:46 AM CDT - 03/22/2025 11:59 PM CDT Hospital Encounter Department of Radiology, [facility] in [place], [place] [address] [place] [address] Queta Quinn M.D. Transient Ischemic Attack Discharge Disposition: Home or Self Care 03/21/2025 8:00 AM CDT Clinical Communication Virtual Review in [place], [place] [address] [place] [address] Pre-visit Intake from Last 3 Months Immunizations Immunization Administration [...] [place] Transient ischemic attack Mother Lesley Cortez Coronary artery disease Sister 1 Inessa Diabetes Sister 1 Inessa Parkinson disease Sister 2 Aishwarya Pearce Colon cancer Son 1 Jacques Acuna Coronary artery disease Son 2 Rebel Acuna Amblyopia Neg Hx Blindness Neg Hx Glaucoma Neg Hx Macular degeneration Neg Hx Strabismus Neg Hx Relation Name Status Comments Father shayla goldman Mother Lesley Cortez Sister 1 Inessa Sister 2 Aishwarya Pearce Son 1 Jacques Acuna Son 2 Rebel Acuna Alive Social History Tobacco Use Types Packs/Day Years Used Date Smoking Tobacco: Never Passive Smoke Exposure: Past Smokeless Tobacco: Never Tobacco Cessation:Counseling Given: Not Answered Alcohol Use Standard Drinks/Week Comments Not Currently 7 (1 standard drink = 0.6 oz [...] the money to buy more. Never true 03/29/20 Within the past 12 months, t he food you bought just didn't last and you didn't have money to get more. Never true 03/29/2025 PRAPARE - Transportation Answer Date Re corded In the past 12 months, has l ack of transportation kept you from medical appointments or from getting medications? No 03/11 In the past 12 months, has l ack of transportation kept you from meetings, work, or from getting things needed for daily living? No 03/29/2025 [facility] Utilities Answer Date Recorded In the past 12 months has th [employer] electric, gas, oil, or water company threatened to shut off services in your home? No 03/29/2025 Depression Answer Date Recor ded PHQ-9 Total Score (max 27) 1 01/26 Housing Stability Answer Date Recorded What is your living situation today? I have a [facility] place to live 03/29/2025 Education Answer Date Recorded What is the highest level of school you have completed or the highest degree you have received? Associate degree: occupational, technical, or vocational program 09/27/2022 Comments No Sex and Gender Information Value Date Recorded Sex Assigned at Female 06/28/2018 10:53 AM SKATE BOARDER Legal Sex Female 12:23 PM SKATE BOARDER Gender Identity Female 06/28/2018 10:53 AM SKATE BOARDER Sexual Orientation Straight 06/28/2018 10 :53 AM SKATE BOARDER Last Filed Vital Signs Vital Sign Reading Time Taken Comments Blood Pressure 129/52 03/04/2024 3:00 PM CDT Pulse 72 03/22/2025 1:53 PM CDT Temperature 36.3 C (97.3 F) 03/04/2024 3:00 PM CDT Respiratory Rate 18 03/04/2024 3:00 PM CDT Oxygen Saturation 100% 03/22/2025 1:53 PM CDT [...] CDT Comprehensive Visit Department of Neurology in [place], [place] [address] [place] [address] Queta Quinn M.D. [address] [place] [address] Health Maintenance Due Date Last Done Comments Office Visit for Blood Pressure Check / Re-check 04/28/2024 01/27/2024 Depression Screening (Annual PHQ-2) 08/10/2024 Fall Risk Screen (Annual) 08/10/2024 COVID-19 Vaccine ( season) 2025 07/09/2024, 05/14/2023, 05/30/2022, Additional history exists Influenza Vaccine (#1) 2025 , 05/22/2023, 06/12/2022, Additional history exists Creatinine Level (Kidney Function [...] (32-36 weeks) or 60+ years Completed 05/22/2023 IPV Vaccines Aged Out No longer eligi ble based on patient's age to complete this topic Medical Devices Implanted Type [employer] Device Identifier Shelf Expiration Date Model / Serial / Lot Drsg Bilayer Matrix 5x5 - [id number] Implanted:Qty: 1 on 12/17/2021 by Brenda Mansfield D.O. at [facility] Bone or Tissue Left: Leg Integra 05/09/2023 [id number] / / [id number] Conversions - Default Historical Implant Device Implanted:05/05 (Quantity not on file) Hardware e.g. pins/screws /rods Right: Foot Description:Body Location - Foot R. Device Status Text - Hardware. screws. Clp Hrzn Ti 6 Clp Ruel - [id number] Implanted:Qty: 1 on 12/17/2021 by Brenda Mansfield D.O. at [facility] Hardware e.g. pins/screws /rods [employer] [id number] / / Clp Hrzn Ti 6 Clp Sm Red - [id number] Implanted:Qty: 1 on 12/17/2021 by Brenda Mansfield D.O. at [facility] Hardware e.g. pins/screws /rods [employer] [id number] / / Clp Hrzn Ti 6 Clp Sm Red - [id number] Implanted:Qty: 1 on 12/17/2021 by Brenda Mansfield D.O. at [facility] Hardware e.g. pins/screws /rods [employer] [id number] 07/21/2026 / / [id number] Clp Hrzn Ti 6 Clp Sm Red - [id number] Implanted:Qty: 1 on 12/17/2021 by Brenda Mansfield D.O. at [facility] Hardware e.g. pins/screws /rods [employer] [id number] 06/16/2026 / / [id number] Hip Implant- 0 Implanted:04/11 (Quantity not on file) Hip Implant Right: Hip Description:Implanted at [facility] Ocular Lens Ocular Lens Bilater al: Eye Procedures Procedure Name Priority Date/Time Associated Diagnosis Comments MR NECK ANGIOGRAM WITHOUT AND WITH IV CONTRAST RAD - Routine (most inpatients and all outpatients) 03/22/2025 1:51 PM CDT Transient Ischemic Attack BASIC METABOLIC PANEL, S/P STAT 03/02/2024 6:49 AM CDT from Last 3 Months or Most Recently Relevant to Health Maintenance Results * MR Neck Angiogram without and with IV Contrast (03/22/2025 1:51 PM CDT) Anatomical Region Laterality Modality Neck, Neuroradiology T LOS , Neuroradiology AR LOS, Neuroradiology FLA LOS N/A Magnetic Resonance [...] caliber atheroscleroticstenosis of the proximal right ICA. us Queta Quinn M.D. IM MRI PROCEDURES Final R esult * Basic Metabolic Panel (03/02/2024 6:49 AM [...] 6:49 AM CDT 03/02/2024 6:53 AM CDT Rosalba Chavez M.D., M.S. LAB BLOOD ADD-ON F inal Result [facility] [address] [place] [address], [facility] [address] [place] [address] from Last 3 Months or Most Recently Relevant to Health Maintenance Insurance [facility] Advance Directives For more information, please contact: [phone] Documents on File Type Date Recorded Patient Belt Glass Sander Expl anation Advance Directives 03/04/2024 11:25 AM Jacques Acuna HCPOA/ADVOCATE/AGENT/ DOCUMENT IMAGING MANAGER/SURROG ATE * DNR/DNI (Latest Code Status on [...] Altern ate Health Care Agent Care Teams Real Estate Transaction Manager Relationship Specialty Start Date End Date Elsewhere, Pcp PCP - General Family Medicine 06/04/21
--- NOTE | 2025-03-29 17:51 | ED_ITS ---
HPI - General Adult General Date Seen: 03/29/25 Chief complaint: Dizziness/Vertigo Stated complaint: vertigo, nausea, past history of strokes Time Seen by Provider: 03/29/25 17:43 History of Present Illness HPI narrative: 85 yo F with a history of previous stroke (November 2023, left arm weakness. Twenty-one days of Plavix,. Patient on diclofenac for chronic pain so no long- term aspirin. Echo showed normal LV size, wall thickness and EF was 60-65%. No known AFib., hypertension, hyperlipidemia. She presents to the ER today with her . They were sent from urgent care. She has dizziness and nausea that began yesterday evening. They were sent because she has a history of stroke. Per [facility] medical record she has a history of hypertension, left carotid stenosis, stroke due to thrombosis of her cerebral artery, aortic atherosclerosis, malignant melanoma, allergic rhinitis, retinal detachment, GERD, cervicalgia, left hip osteoarthritis, arthritis of her thumbs, sleep apnea, bladder prolapse, overactive bladder, chronic kidney disease Current med list includes Brilinta, rosuvastatin, losartan, acetaminophen, albuterol, calcium/vitamin-D, fluticasone nasal spray, hydroxyzine p.r.n., lactobacillus, oxycodone 5 mg t.i.d. p.r.n. She reports that she had an MRI done at [place] last week to check out her carotid arteries and has an appointment with her [place] neurologist next Thursday. 03/22/2025 4:56 PM CDT? EXAM: MR NECK ANGIOGRAM WITHOUT AND WITH IV CONTRAST COMPARISON: Neck MRA 12/22/2023 FINDINGS: The atherosclerotic stenosis of the proximal right ICA has slightly increased, now measuring approximately 40-50% by NASCET criteria, compared to 30% previously. No convincing intraplaque hemorrhage. Otherwise no significant interval change. Again seen is partially retropharyngeal course of both internal carotid arteries. Atherosclerotic changes without significant narrowing of the proximal left ICA; mild distal left common carotid artery narrowing. Patent bilateral vertebral arteries, without high-grade stenosis, both contributing to the basilar with the left larger than the right. She presents to the ER today, accompanied by her . She 1st developed symptoms of vertigo last night around bedtime. She had apparently laid down in bed and then got up to go to the bathroom and upon sitting up she had spinning dizziness. He was quite intense and lasting about a minute but then it was better and she was able to go to the bathroom. She walked with a walker, as she always does, when she gets up to go to the bathroom. She was able to sleep. She had vertigo couple more times when she got up to go to the bathroom. She would experience an episode of spinning dizziness with each time she sat. This morning the spinning dizziness was worse when she sat up and she was associated with nausea. She says it is pretty intense for about a minute after she sits up and then it gets better but never completely resolves. It is she has been having mild vertigo throughout the day today. Along with that she had a little bit of tingling left side of her face and left side of her tongue earlier today that is now gone. No new numbness or weakness in her arms or legs. She has not fallen. She has been nauseous but not vomiting. No palpitations. No chest pain. No fever. No cough. No vomiting. No diarrhea. Urination has been normal. No swelling in her legs. She has been taking her Brilinta. She did check her blood pressure this morning and was in the low normal range at about 95/50. She drink plenty of fluids and her blood pressure came up to about 112/70 but her symptoms have not changed despite improvement in her blood pressure. She was sent to the ER today by Urgent Care with concern for stroke. Related Data Home Medications ?Medication ?Instructions ?Recorded ?Confirmed albuterol sulfate 90 mcg/actuation 1 - 2 puff inhalati on Q4H PRN 01/03/23 03/29/25 aerosol inhaler dyspnea estradiol 10 mcg vaginal tablet 10 mcg vaginal 3XW 02/26/24 (Yuvafem) losartan 50 mg tablet 50 mg PO DAILY 01/03/2303/11 cetirizine 10 mg tablet (24Hour 10 mg PO DAILY PRN 03/29/25 Allergy) coQ10 (ubiquinol) 100 mg capsule 100 mg PO DAILY 11/2003/29/25 (Qunol Eduardo CoQ10) diclofenac sodium 75 mg 75 mg PO DAILY 11/21/2302/07 tablet,delayed release oxycodone 5 mg tablet 5 mg PO Q6H PRN pain 4 02/26/24 Lactobacillus rhamnosus GG 10 1 cap PO DAILY 11/24/23 02/26/24 billion cell capsule (Culturelle) acetaminophen 500 mg tablet 1,000 mg PO BID 11/24/23 0 03/29/25 calcium 200 mg (as 2 cap PO DAILY 11/24/2303/11 carbonate)-vitamin D3 10 mcg (400 unit) capsule cholecalciferol (vitamin D3) 50 4,000 unit PO DAILY 03/29/25 mcg (2,000 unit) capsule rosuvastatin 10 mg tablet 10 mg PO QPM 02/26/24 ticagrelor 90 mg tablet (Brilinta) 90 mg PO BID 02/26/24 Previous Rx's ?Medication ?Instructions ?Recorded clopidogrel 75 mg tablet 75 mg PO DAILY 20 days #20 t abs 11/25/23 rosuvastatin 20 mg tablet 20 mg PO HS #30 tabs 4 oxycodone 5 mg capsule 5 mg PO Q6H PRN pain #14 cap s 02/26/24 Allergies Allergy/AdvReac Type Severity Reaction Status Date / Time aluminum Allergy Verified 03/29/25 19:54 cefuroxime (From Ceftin) Allergy Verified 03/29/25 19:54 diphtheria toxoid,fluid Allergy Verified 03/29/25 19:54 doxycycline Allergy Verified 03/29/25 19:54 gabapentin Allergy Verified 03/29/25 19:54 grass pollen Allergy Verified 03/29/25 19:54 lisinopril Allergy Verified 03/29/25 19:54 mold Allergy Verified 03/29/25 19:54 Penicillins Allergy Verified 03/29/25 19:54 pneumococcal 7-valent Allergy Verified 03/29/25 19:54 conjugate to (From Prevnar) pneumococcal vaccine Allergy Verified 03/29/25 19:54 Sulfa (Sulfonamide Allergy Verified 03/29/25 19:54 Antibiotics) [facility] Medical History Obstructive sleep apnea of adult (11/26/09) ?G47.33 - Obstructive sleep apnea (adult) (pediatric) (ICD-10) Malignant melanoma of left lower limb, including hip (12/06/21) ?C43.72 - Malignant melanoma of left lower limb, including hip (ICD-10) Osteoarthritis of left hip (12/17/12) ?M16.12 - Unilateral primary osteoarthritis, left hip (ICD-10) Personal history of allergy to antibiotic agent (05/17/21) ?Z88.1 - Allergy status to other antibiotic agents (ICD-10) 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) ?N99.3 - Prolapse of vaginal vault after hysterectomy (ICD-10) Primary insomnia (07/17/15) ?F51.01 - Primary insomnia (ICD-10) Personal history of colonic polyps (05/27/13) ?Z86.010 - Personal history of colonic polyps (ICD-10) OAB (overactive bladder) (02/14/19) ?N32.81 - Overactive bladder (ICD-10) Nocturnal polyuria (02/14/19) ?R35.81 - Nocturnal polyuria (ICD-10) Left carotid stenosis (03/19/17) ?I65.22 - Occlusion and stenosis of left carotid artery (ICD-10) Hyperlipidemia (05/17/21) ?E78.5 - Hyperlipidemia, unspecified (ICD-10) HTN (hypertension) (11/13/09) ?I10 - Essential (primary) hypertension (ICD-10) Hallux rigidus of right foot (07/07/12) ?M20.21 - Hallux rigidus, right foot (ICD-10) GERD (gastroesophageal reflux disease) (06/29/09) ?K21.9 - Gastro-esophageal reflux disease without esophagitis (ICD-10) Fibromyalgia (05/17/21) ?M79.7 - Fibromyalgia (ICD-10) DDD (degenerative disc disease), cervical (10/27/17) ?M50.30 - Other cervical disc degeneration, unspecified cervical region (ICD- 10) Daytime somnolence (02/14/19) ?R40.0 - Somnolence (ICD-10) Cervicalgia ?M54.2 - Cervicalgia (ICD-10) Bladder prolapse, female, acquired (06/19/15) ?N81.10 - Cystocele, unspecified (ICD-10) Arthritis of carpometacarpal (CMC) joints of both thumbs (02/06/17) ?M18.0 - Bilateral primary osteoarthritis of first carpometacarpal joints (ICD-10) Allergic rhinitis, cause unspecified ?J30.9 - Allergic rhinitis, unspecified (ICD-10) Adverse reaction to sulfa antibiotic (11/03/13) ?T37.0X5A - Adverse effect of sulfonamides, initial encounter (ICD-10) Surgical History Status post intraocular lens implant (04/10/21) ?Z96.1 - Presence of intraocular lens (ICD-10) Status post left hip replacement (05/17/21) ?Z96.642 - Presence of left artificial hip joint (ICD-10) Family History Son Colon cancer Sister Diabetes High blood pressure Father Heart disease Mother Alzheimers disease Social History What is your current living situation?: I presently have a place to live Problems where you live: no known problems Problems where you live details: N/A In the past 12 months, utilities in danger of being shut off: no In past 12 months, lack of transportation kept you from medical appts, meetings, work, or getting things needed for daily living: no In the past 12 mos, have been you worried that your food would run out before you had money to buy more?: never true In the past 12 mos, the food you bought just didn't last and you didn't have money to buy more?: never true Highest level of school completed/degree received: Associate degree: occupational, technical, vocational program Smoking Status: Never smoker Do you use any of these nicotine containing products: None Second hand tobacco smoke exposure: No How often do you have a drink containing alcohol: 4 or more times a week How many standard drinks containing alcohol do you have on a typical day: 1 or 2 AUDIT-C Alcohol total score: 4 Non-prescribed substance use: denies use Caffeine: Yes How often does anyone, including family, friends and others, physically hurt you : never How often does anyone, including family, friends and others, insult or talk down to you: never How often does anyone, including family, friends and others, threaten you with harm: never How often does anyone, including family, friends and others, scream or curse at you: never service: No Exam Narrative: Exam Narrative: Constitutional: Appears well-developed and well-nourished. Alert. Conversant. Non toxic. HENT: Head: Atraumatic. Nose: Nose normal. Mouth/Throat: Oral mucosa is clear and moist. no trismus. Pharynx normal. Tonsils symmetric. No tonsillar enlargement, erythema, or exudate. Eyes: Conjunctivae normal. EOM normal. Pupils slightly smaller in the right eye than the left which is apparently chronic due to previous retinal detachment., each pupil is round, and reactive to light. No scleral icterus. Horizontal nystagmus noted. No vertical nystagmus. Neck: Normal range of motion. Neck supple. No tracheal deviation present. Cardiovascular: Normal rate, regular rhythm. No gallop. No friction rub. No murmur heard. Symmetric radial artery pulses Pulmonary/Chest: Effort normal. No stridor. No respiratory distress. No wheezes. No rales. No rhonchi . No tenderness. Abdominal: Soft. Bowel sounds normal. No distension. No mass. No tenderness. No rebound. No guarding. Musculoskeletal: RUE: Normal range of motion. No tenderness. No deformity LUE: Normal range of motion. No tenderness. No deformity RLE: Normal range of motion. No edema. No tenderness. No deformity LLE: Normal range of motion. No edema. No tenderness. No deformity Lymph: No cervical adenopathy. Neurological: Mental status normal. Attention normal. Alert and oriented x3. GCS 15. Memory normal. Speech fluent. Cognition normal. Cranial Nerves intact II-XII except I did not formally test gag or visual acuity. EOMI. Palate elevates symmetrically and tongue protrudes in the midline. Strength: 5/5 trapezius on the right and left 5/5 deltoid on the right and left 5/5 biceps on the right and left 5/5 triceps on the right and left 5/5 web methods developer on the right and left 5/5 thumb opposition on the right and le ft 5/5 finger abduction on the right and le ft 5/5 hip flexors (L3) on the right and le ft 5/5 quadriceps (L4) on the right and lef t 5/5 tibialis anterior on the right and l eft 5/5 EHL (L5) on the right and left 5/5 gastrocnemius (S1) on the right and left 5/5 hamstring on the right and left Sensation intact to light touch in both upper extremities (C4-T1) Sensation intact to light touch in Both lower extremities (L4-S1). Finger to nose and coordination normal on the right hand, little bit slow on her left hand but her left arm is chronically a little bit slower because of her previous stroke.. Gait slow and she relies on her cane. No footdrop or unilateral weakness. Skin: Skin is warm and dry. No rash noted. No pallor. Normal capillary refill. Psychiatric: Normal mood. Normal affect. Const: Vital Signs, click to edit/add: Vital Signs - 24 hr 03/29/25 17:52 Temperature 97.9 F Pulse Rate [Pulse Oximeter] 84 Respiratory Rate 20 Blood Pressure [Ri ght Upper Arm] 111/73 Pulse Oximetry 97 Oxygen Delivery Me thod Room Air Course Course ED Course: Recheck patient reports that her vertigo is now completely resolved. She feels better and back to normal. Ambulatory in the hallway went to the bathroom without difficulty. Still no focal neurologic deficits. Pupil sizes are still unequal and unchanged with this is thought to be chronic related to her previous retinal detachment surgery. No ongoing nystagmus. Vital Signs Vital signs: Initial Vital Signs Temperature 97.9 F 03/29/25 17:52 Temperature Source Temporal Artery Scan 03/29/25 17:52 Pulse Rate 84 03/29/25 17:52 Respiratory Rate 20 03/29/25 17:52 Blood Pressure 111/73 03/29/25 17:52 Blood Pressure Mean 85 03/29/25 17:52 Pulse Oximetry 97 03/29/25 17:52 Oxygen Delivery Method Room Air 03/29/25 17:52 Vital Signs Temperature 97.9 F 03/29/25 17:52 Pulse Rate 84 03/29/25 17:52 Respiratory Rate 20 03/29/25 17:52 Blood Pressure 111/73 03/29/25 17:52 Pulse Oximetry 97 03/29/25 17:52 Oxygen Delivery Method Room Air 03/29/25 17:52 Temperature 97.9 F 03/29/25 17:52 Pulse Rate 84 03/29/25 17:52 Respiratory Rate 20 03/29/25 17:52 Blood Pressure 111/73 03/29/25 17:52 Pulse Oximetry 97 03/29/25 17:52 Oxygen Delivery Method Room Air 03/29/25 17:52 Medications Administered Medications: Discontinued Medications Generic Name Dose Route Start Last Admin Trade Name Darnell PRN Reason Stop Dose Admin Sodium Chloride 500 mls @ 1,000 mls/hr 03/29/25 18:26 03/29/25 19:35 0.9 % Sodium Chloride 500 Ml IV 03/29/25 18:55 Infused .Q30M SYLVIA Infusion Meclizine HCl 25 mg 03/29/25 18:25 03/29/25 18:48 Meclizine Hcl 25 Mg Tablet PO 03/29/25 18:26 25 mg ONCE ONE Administration Medical Decision Making MDM Narrative Medical decision making narrative: 81-year-old female on Brilinta for history of stroke (presented with left-sided weakness in November and again in December 2023, almost not completely resolve with very minimal left-sided symptoms. On pulling to chronically. Not on aspirin or Plavix anymore. Follows with [place] [facility]. Presents to the ER today with vertigo that began yesterday evening when she was going to bed. She has had a very mild continue his vertigo ever since this morning. She does have episodes that are triggered by change in position going from laying to sitting where he gets much worse from her so but it never completely goes away. She also had an episode of tingling in her left face and tongue. She notes that she has occasional episodes of left facial tingling ever since her old stroke. She is not having any more facial symptoms at this time. She had taken meclizine without improvement. Blood pressure was somewhat low in the low normal range with her 1st measurement this morning so she hydrated aggressively. Diffuse subsequent blood pressure readings were more normal but symptoms persisted Differential her vertigo is broad. This could be a peripheral vertigo the because she does have a horizontal nystagmus. Not a clear pattern of intermittent vertigo that would suggest BPPV, however. No recent head trauma. No evidence for OE, om, mastoiditis. Consider possible labyrinthitis. No tinnitus. She has chronic poor hearing and uses hearing aids but no recent change Urinalysis normal. Metabolic profile, electrolytes, lactic, hemoglobin are normal. No fever or leukocytosis to suggest infection. With although she has been hydrating at home we did administer IV fluids here in the ER and her vertigo resolved. She is feeling completely back to normal. Consider possible stroke with onset yesterday evening at bedtime. She would not be a candidate for IV tPA. Potentially if she had a new acute LV 0, might be a candidate for intra-arterial intervention. Discussed with the patient that CT scan is normal but MRI would be much more sensitive to look for an acute stroke especially a posterior fossa stroke that would be correlating with vertigo. MRI is not available here in my ER this evening. Noncontrast head CT is negative for bleed. CT angiogram shows less than 50% right carotid stenosis which sounds similar to her MRI done at [place] last week (see HPI results). There is no evidence for any acute change or carotid dissection or any acute large vessel occlusion that would give amenable to intra-arterial intervention. As she is feeling better, I think it is safe to discharge her home. Would recommend close outpatient follow-up with a neurologist at [place]. She has an appointment scheduled in a few days. Provided with digital copies of her imaging so she can bring with her to her appointment. Also counseled to return to the ER immediately with any recurring vertigo or other neurologic symptoms Lab Data Labs: Lab Results 03/29/25 03/29/25 Range/Units 18:50 18:55 WBC 6.52 (4.50-11.00) K/uL RBC 4.47 (4.00-5.20) m/uL Hgb 13.6 (12.0-16.0) gm/dL Hct 41.9 (33.0-51.0) % MCV 94 (80-100) fL MCH 30 (26-34) pg MCHC 33 (32-36) gm/dL RDW Coeff of Edis 13.0 (11.5-15.5) % Plt Count 262 (140-440) K/uL Neut % (Auto) 65.7 (42.0-72.0) % Lymph % (Auto) 24.5 (20-44) % [place] % (Auto) 7.2 (0.0-11.0) % Eos % (Auto) 1.8 (0.0-7.0) % Baso % (Auto) 0.6 (0.0-3.0) % Neut # (Auto) 4.28 (1.7-7.0) K/uL Lymph # (Auto) 1.60 (0.90-2.90) K/uL [place] # (Auto) 0.50 (0.00-0.90) K/UL Eos # (Auto) 0.12 (0.00-0.50) K/uL Baso # (Auto) 0.04 (0.00-0.30) K/uL Abs Immat Gran (auto) 0.01 (0.00-0.30) K/uL Imm/Tot Granulo (auto) 0.2 % Sodium 137 (135-149) mmol/L Potassium 4.6 (3.6-5.1) mmol/L Chloride 103 (96-114) mmol/L Carbon Dioxide 24 (20-32) mmol/L Anion Gap 10 (7-15) mEq/L BUN 32 H (7-30) mg/dL Creatinine 0.9 (0.5-1.5) mg/dL Estimated Creat Clear 33.12 Estimated GFR 63 ml/min Glucose 113 (60-115) mg/dL Lactate 1.7 (0.5-1.9) mmol/L Calcium 9.7 (8.4-10.6) mg/dL Troponin I < 0.01 (0.01-0.04) ng/mL Urine Color Yellow (Yellow) Urine Appearance Clear (Clear) Urine pH 5.5 (5.0-8.5) Ur Specific [place] <= 1.005 (1.000-1.030) Urine Protein Negative (Negative) Urine Glucose (UA) Negative (Negative) Urine Ketones Negative (Negative) Urine Blood Negative (Negative) Urine Nitrite Negative (Negative) Urine Bilirubin Negative (Negative) Urine Urobilinogen 0.2 (0.2-1.0) Ur Leukocyte Esterase Negative (Negative) Urine RBC 0-2 (0-2) Urine WBC 0-2 (0-5) Ur Squamous Epith Cells Few (None-Few) Urine Bacteria None (None) Imaging Data CTA head an dneck: Attestation: I have reviewed the pertinent imaging results. Radiologist's impression: FINDINGS: CTA head: Bilateral carotid siphons and [place] Velasquez are patent. Major bilateral intracranial dural circulations are patent with no high-grade stenosis, large vessel occlusion, or aneurysm. CTA neck: Atheromatous plaque of the right carotid bulb results in mild, less than 50 percent narrowing by luminal diameter. Remainder of the right ICA is patent to the skullbase. Patent left carotid circulation from the origin to the skullbase. No focal stenosis. Patent bilateral vertebral circulations from the origin to the vertebrobasilar junction. No high-grade stenosis or dissection. Left vertebral artery is dominant. CT scan - head: Attestation: I have reviewed the pertinent imaging results. Radiologist's impression: IMPRESSION: 1. No acute intracranial abnormality. 2. Moderate generalized cerebral volume loss. Chronic deep white matter small vessel ischemic changes ECG Data Attestation: I personally reviewed and interpreted this ECG as follows: Interpretation: Normal sinus rhythm Rate 72 DC interval 164 Normal QRS axis. Q-waves in leads V1 and V2. No ST segment elevation or depression. QTC 392, QTC 429 Discharge Plan Discharge Clinical Impression: Vertigo Patient Disposition: Home, Self-Care Condition: Stable Instructions: Vertigo (ED) Additional Instructions: As we discussed, so far your workup looks reassuring. I am glad that your vertigo is resolved. Please monitor your symptoms carefully and if you have more episodes of vertigo or any other symptoms such as numbness in your face, numbness in your tongue, weakness or numbness in your arms or legs, headache, or any other concerns, please return to the ER or see your neurologist at [facility] as soon as possible. Even if you get better be sure to follow-up with her neurologist at [facility]. Prescriptions: No Action acetaminophen 500 mg tablet 1,000 mg PO BID Rx Instructions: PLUS AN ADDITIONAL DOSE IN THE MIDDLE OF THE DAY NEEDED calcium carbonate-vitamin D3 200 mg-10 mcg (400 unit) capsule 2 cap PO DAILY cholecalciferol (vitamin D3) 50 mcg (2,000 unit) capsule 4,000 unit PO DAILY Culturelle 10 billion cell capsule 1 cap PO DAILY clopidogrel 75 mg Tablet 75 mg PO DAILY 20 Days Qty: 20 0RF rosuvastatin 20 mg tablet 20 mg PO HS Qty: 30 0RF losartan 50 mg tablet 50 mg PO DAILY albuterol sulfate 90 mcg/actuation HFA aerosol inhaler 1 - 2 puff INHALATION Q4H PRN (Reason: dyspnea) estradiol [Yuvafem] 10 mcg tablet 10 mcg vaginal 3XW diclofenac sodium 75 mg tablet,delayed release (DR/EC) 75 mg PO DAILY oxycodone 5 mg tablet 5 mg PO Q6H PRN (Reason: pain) cetirizine [24Hour Allergy] 10 mg tablet 10 mg PO DAILY PRN coQ10 (ubiquinol) [Qunol Eduardo CoQ10] 100 mg capsule 100 mg PO DAILY rosuvastatin 10 mg tablet 10 mg PO QPM Brilinta 90 mg tablet 90 mg PO BID oxycodone 5 mg capsule 5 mg PO Q6H PRN (Reason: pain) Qty: 14 0RF Follow Up/Referrals: Vaishali Baeza MD [Primary Care Provider, Family Practice] Stand Alone Forms: [facility] Info Instructions
[2025-03-29 17:52] VITALS: BP 111/73; PULSE 84; RESP 20; TEMP 36.6; O2SAT 97; BMI 28.0
--- NOTE | 2025-03-29 18:25 | CRLHL7_ITS ---
For Patients: As a result of the Century Cures Act, medical imaging exams and procedure reports are released immediately into your electronic medical record. You may view this report before your referring provider. If you have questions, please contact your health care provider. INDICATION: Vertigo. Left facial numbness. COMPARISON: None. FINDINGS: CTA head: Bilateral carotid siphons and [place] Velasquez are patent. Major bilateral intracranial dural circulations are patent with no high-grade stenosis, large vessel occlusion, or aneurysm. CTA neck: Atheromatous plaque of the right carotid bulb results in mild, less than 50 percent narrowing by luminal diameter. Remainder of the right ICA is patent to the skullbase. Patent left carotid circulation from the origin to the skullbase. No focal stenosis. Patent bilateral vertebral circulations from the origin to the vertebrobasilar junction. No high-grade stenosis or dissection. Left vertebral artery is dominant. Other: Cervical spondylosis. Lung apices are clear. Please note that all CT scans at this facility use dose modulation, iterative reconstruction, and/or weight-based dosing when appropriate to reduce radiation dose to as low as reasonably achievable. Dictated by Srikanth Bose MD @ 03/29/2025 8:01:20 PM (Electronically Signed)
--- NOTE | 2025-03-29 18:25 | CRLHL7_ITS ---
For Patients: As a result of the Century Cures Act, medical imaging exams and procedure reports are released immediately into your electronic medical record. You may view this report before your referring provider. If you have questions, please contact your health care provider. INDICATION: Vertigo. Left face numbness. COMPARISON: None. TECHNIQUE: Noncontrast CT head. FINDINGS: Moderate generalized volume loss. Patchy low-attenuation change within the white matter consistent with chronic deep white matter small vessel ischemic changes. No acute intracranial hemorrhage, acute infarct, mass-effect, or fracture. No midline shift. No abnormal ventricular dilatation. Calcification along the falx. Normal calvarium and skull base. Visualized paranasal sinuses mastoid air cells are clear. Normal orbits bilaterally. IMPRESSION: 1. No acute intracranial abnormality. 2. Moderate generalized cerebral volume loss. Chronic deep white matter small vessel ischemic changes Please note that all CT scans at this facility use dose modulation, iterative reconstruction, and/or weight-based dosing when appropriate to reduce radiation dose to as low as reasonably achievable. Dictated by Srikanth Bose MD @ 03/29/2025 7:56:29 PM (Electronically Signed)
--- NOTE | 2025-03-29 18:25 | CRLHL7_ITS ---
For Patients: As a result of the Century Cures Act, medical imaging exams and procedure reports are released immediately into your electronic medical record. You may view this report before your referring provider. If you have questions, please contact your health care provider. DATE: 03/29/2025 CLINICAL HISTORY: Patient with vertigo and numbness. TECHNIQUE: Standard helical CT image acquisition of the neck up to the skull base after bolus intravenous contrast enhancement. 2D and 3D MIP images for post-processing were performed and interpreted on an independent workstation and 3D images were permanently archived. COMPARISON: CT same day. FINDINGS: The origins of the great vessels from the aortic arch are patent. The origin of the right vertebral artery is patent. The origin of the left vertebral artery is patent. The common carotid arteries are patent. There is a mild (less than 50%) stenosis at the origin of the right internal carotid artery by NASCET criteria. This is caused by non-calcified plaque with a greater than 2mm residual lumen. There is plaque without stenosis at the origin of the left internal carotid artery by NASCET criteria. The rest of the cervical segments of the internal carotid arteries are patent up to the skull base. The left vertebral artery is dominant. The cervical segments of the vertebral arteries are patent up to the skull base. The visualized lung apices are unremarkable. The thyroid gland is unremarkable. The soft tissues of the neck are unremarkable. There are degenerative changes in the cervical spine. IMPRESSION: Mild (less than 50%) stenosis at the origin of the right internal carotid artery by NASCET criteria. This is caused by non-calcified plaque with a greater than 2mm residual lumen. Please note that all CT scans at this facility use dose modulation, iterative reconstruction, and/or weight-based dosing when appropriate to reduce radiation dose to as low as reasonably achievable. Dictated by Hilda Davis MD @ 03/29/2025 10:07:27 PM (Electronically Signed)
[2025-03-29] MEDS: 0.9 % SODIUM CHLORIDE 500 ML 500 ML 1000 ML IV (18:48)
[2025-03-29] MEDS: MECLIZINE HCL 25 MG TABLET PO (18:48)
[2025-03-29 19:00] LABS: Lactate* 1.7 mmol/L (0.5-1.9)
[2025-03-29 19:01] LABS: Hematocrit 41.9 % (33.0-51.0); Hemoglobin* 13.6 gm/dL (12.0-16.0); Immature Granulocytes Abs Auto 0.01 K/uL (0.00-0.30); Immature Granulocytes Pct Auto 0.2 %; Lymphocytes Absolute Auto 1.60 K/uL (0.90-2.90); Mean Corpuscular HGB Conc 33 gm/dL (32-36); Mean Corpuscular Hemoglobin 30 pg (26-34); Mean Corpuscular Volume 94 fL (80-100); RDW Coefficient of Variation % 13.0 % (11.5-15.5); Red Blood Count 4.47 m/uL (4.00-5.20); White Blood Count* 6.52 K/uL (4.50-11.00)
[2025-03-29 19:16] LABS: Appearance Urine Clear (Clear)
[2025-03-29 19:18] LABS: Slide Review Reflex No
[2025-03-29 19:32] LABS: Chloride* 103 mmol/L (96-114); Potassium* 4.6 mmol/L (3.6-5.1); Sodium* 137 mmol/L (135-149)
[2025-03-29 19:35] LABS: Anion Gap 10 mEq/L (7-15); Blood Urea Nitrogen* 32 mg/dL (7-30); Calcium* 9.7 mg/dL (8.4-10.6); Carbon Dioxide* 24 mmol/L (20-32); Creatinine* 0.9 mg/dL (0.5-1.5); Est. Creatinine Clearance* 33.12; Estimated Glomerular Filt Rate 63 ml/min; Glucose* 113 mg/dL (60-115)
== END 2025-03-29 20:58 | disposition home or self-care (01) ==
PROVIDERS: Emergency Provider Emergency Medicine; PCP Family Medicine
DX: R42 Dizziness and giddiness (principal)
CPT/HCPCS: 36415; 70450; 70496; 70498; 80048; 81001; 83605; 84484; 85025; 93005; 99283; 99284; 99285; A9270; J7030; Q9967

== ENCOUNTER 2025-05-17 12:26 | Emergency (ER) | payer MEDICARE, SELFPAY ==
[2025-05-17 12:32] VITALS: BP 114/79; PULSE 96; RESP 16; TEMP 37.1; O2SAT 97; BMI 27.1
--- NOTE | 2025-05-17 13:39 | ED.GENADULT ---
HPI - General Adult General Date Seen: 05/17/25 Chief complaint: Fall/Minor Trauma Stated complaint: Fall Thursday, back/head pain Time Seen by Provider: 05/17/25 13:24 History of Present Illness HPI narrative: 85 yo F he past medical history of sleep apnea, malignant melanoma, osteoarthritis, hypertension, fibromyalgia, insomnia, left carotid stenosis, neck pain and cervicalgia, degenerative disc disease, GERD . She tripped and fell in a parking lot 2 days ago on Thursday. She injured her back and struck her head. She was seen in the ER in [place], [place]. She reports that she had workup in her head CT was negative. She also had multiple other x-rays but unclear what parts of her body where imaged. She was diagnosed with a lumbar 5 fracture. He she now has it is receding pain in her low back, left hip and is having trouble moving and ambulating due to the pain. She was prescribed Lortab. She notes that after she left the ER she had onset of some pain in her left lateral hip over the greater trochanter. It has been getting worse and worse for the past couple of days. She did not take the prescribed Lortab. She has a previous supply of oxycodone so she has been taking oxycodone and her Tylenol for pain. She feels like her pain meds are not helping. Because of her worsening pain she has been having a lot of trouble getting around. She says she feels best when she is sitting in her wheelchair. Her left hip hurts a lot when she tries to stand up and walk on it or when she lays flat on her back. She says it has been so painful she has been having trouble getting to and from the bathroom. Her has been having to help her get onto the toilet and off again. Per records from [facility] care link she did have an x-ray of her left hip yesterday on 05/16/2025 that showed, ?impression: No sign of acute fracture. ? She was seen in the clinic at [facility] yesterday. After x-rays were negative t she was discharged. Related Data Home Medications ?Medication ?Instructions ?Recorded ?Confirmed albuterol sulfate 90 mcg/actuation 1 - 2 puff inhalation Q4H PRN 05/27/23 08/30/25 aerosol inhaler dyspnea estradiol 10 mcg vaginal tablet 10 mcg vaginal 3XW 01/03/23 04/08/25 (Yuvafem) losartan 50 mg tablet 50 mg PO DAILY 01/03/23 04/08/25 cetirizine 10 mg tablet (24Hour 10 mg PO DAILY PRN 11/21/23 04/08/25 Allergy) coQ10 (ubiquinol) 100 mg capsule 100 mg PO DAILY 11/21/23 04/08/25 (Qunol Eduardo CoQ10) diclofenac sodium 75 mg 75 mg PO DAILY 11/21/23 04/08/25 tablet,delayed release oxycodone 5 mg tablet 5 mg PO Q6H PRN pain 11/21/23 04/08/25 Lactobacillus rhamnosus GG 10 1 cap PO DAILY 11/24/23 04/08/25 billion cell capsule (Culturelle) acetaminophen 500 mg tablet 1,000 mg PO BID 11/24/23 04/08/25 calcium 200 mg (as 2 cap PO DAILY 11/24/23 04/08/25 carbonate)-vitamin D3 10 mcg (400 unit) capsule cholecalciferol (vitamin D3) 50 4,000 unit PO DAILY 11/24/23 04/08/25 mcg (2,000 unit) capsule rosuvastatin 10 mg tablet 10 mg PO QPM 02/26/24 04/08/25 ticagrelor 90 mg tablet (Brilinta) 90 mg PO BID 02/26/24 04/08/25 Previous Rx's ?Medication ?Instructions ?Recorded clopidogrel 75 mg tablet 75 mg PO DAILY 20 days #20 tabs 11/25/23 rosuvastatin 20 mg tablet 20 mg PO HS #30 tabs 11/25/23 oxycodone 5 mg capsule 5 mg PO Q6H PRN pain #14 caps 02/26/24 oxycodone 5 mg capsule 5 - 10 mg (1 - 2 x 5 mg) PO Q4H 05/17/25 PRN pain #10 caps Allergies Allergy/AdvReac Type Severity Reaction Status Date / Time aluminum Allergy Verified 04/08/25 12:36 cefuroxime (From Ceftin) Allergy Verified 04/08/25 12:36 diphtheria toxoid,fluid Allergy Verified 04/08/25 12:36 doxycycline Allergy Verified 04/08/25 12:36 gabapentin Allergy Verified 04/08/25 12:36 grass pollen Allergy Verified 04/08/25 12:36 lisinopril Allergy Verified 04/08/25 12:36 mold Allergy Verified 04/08/25 12:36 Penicillins Allergy Verified 04/08/25 12:36 pneumococcal 7-valent Allergy Verified 04/08/25 12:36 conjugate to (From Prevnar) pneumococcal vaccine Allergy Verified 04/08/25 12:36 Sulfa (Sulfonamide Allergy Verified 04/08/25 12:36 Antibiotics) PFSH PFS Medical History Obstructive sleep apnea of adult (11/26/09) ?G47.33 - Obstructive sleep apnea (adult) (pediatric) (ICD-10) Malignant melanoma of left lower limb, including hip (12/06/21) ?C43.72 - Malignant melanoma of left lower limb, including hip (ICD-10) Osteoarthritis of left hip (12/17/12) ?M16.12 - Unilateral primary osteoarthritis, left hip (ICD-10) Personal history of allergy to antibiotic agent (05/17/21) ?Z88.1 - Allergy status to other antibiotic agents (ICD-10) 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) ?N99.3 - Prolapse of vaginal vault after hysterectomy (ICD-10) Primary insomnia (07/17/15) ?F51.01 - Primary insomnia (ICD-10) Personal history of colonic polyps (05/27/13) ?Z86.010 - Personal history of colonic polyps (ICD-10) OAB (overactive bladder) (02/14/19) ?N32.81 - Overactive bladder (ICD-10) Nocturnal polyuria (02/14/19) ?R35.81 - Nocturnal polyuria (ICD-10) Left carotid stenosis (03/19/17) ?I65.22 - Occlusion and stenosis of left carotid artery (ICD-10) Hyperlipidemia (05/17/21) ?E78.5 - Hyperlipidemia, unspecified (ICD-10) HTN (hypertension) (11/13/09) ?I10 - Essential (primary) hypertension (ICD-10) Hallux rigidus of right foot (07/07/12) ?M20.21 - Hallux rigidus, right foot (ICD-10) GERD (gastroesophageal reflux disease) (06/29/09) ?K21.9 - Gastro-esophageal reflux disease without esophagitis (ICD-10) Fibromyalgia (05/17/21) ?M79.7 - Fibromyalgia (ICD-10) DDD (degenerative disc disease), cervical (10/27/17) ?M50.30 - Other cervical disc degeneration, unspecified cervical region (ICD-10) Daytime somnolence (02/14/19) ?R40.0 - Somnolence (ICD-10) Cervicalgia ?M54.2 - Cervicalgia (ICD-10) Bladder prolapse, female, acquired (06/19/15) ?N81.10 - Cystocele, unspecified (ICD-10) Arthritis of carpometacarpal (CMC) joints of both thumbs (02/06/17) ?M18.0 - Bilateral primary osteoarthritis of first carpometacarpal joints (ICD-10) Allergic rhinitis, cause unspecified ?J30.9 - Allergic rhinitis, unspecified (ICD-10) Adverse reaction to sulfa antibiotic (11/03/13) ?T37.0X5A - Adverse effect of sulfonamides, initial encounter (ICD-10) Surgical History Status post intraocular lens implant (04/10/21) ?Z96.1 - Presence of intraocular lens (ICD-10) Status post left hip replacement (05/17/21) ?Z96.642 - Presence of left artificial hip joint (ICD-10) Family History Son Colon cancer Sister Diabetes High blood pressure Father Heart disease Mother Alzheimers disease Social History What is your current living situation?: I presently have a place to live Problems where you live: no known problems Problems where you live details: N/A In the past 12 months, utilities in danger of being shut off: no In past 12 months, lack of transportation kept you from medical appts, meetings, work, or getting things needed for daily living: no In the past 12 mos, have been you worried that your food would run out before you had money to buy more?: never true In the past 12 mos, the food you bought just didn't last and you didn't have money to buy more?: never true Highest level of school completed/degree received: Associate degree: occupational, technical, vocational program Smoking Status: Never smoker Do you use any of these nicotine containing products: None Second hand tobacco smoke exposure: No How often do you have a drink containing alcohol: 4 or more times a week How many standard drinks containing alcohol do you have on a typical day: 1 or 2 AUDIT-C Alcohol total score: 4 Non-prescribed substance use: denies use Caffeine: Yes How often does anyone, including family, friends and others, physically hurt you: never How often does anyone, including family, friends and others, insult or talk down to you: never How often does anyone, including family, friends and others, threaten you with harm: never How often does anyone, including family, friends and others, scream or curse at you: never service: No Exam Narrative: Exam Narrative: Constitutional: Appears well-developed and well-nourished. Alert. Conversant and somewhat long winded circuitous historian but does answer questions appropriately. Uncomfortable, but Non toxic. HENT: Head: Atraumatic. Nose: Nose normal. Mouth/Throat: Oral mucosa is clear and moist. no trismus. Pharynx normal. Tonsils symmetric. No tonsillar enlargement, erythema, or exudate. Eyes: Conjunctivae normal. EOM normal. Pupils equal, round, and reactive to light. No scleral icterus. Neck: Normal range of motion. Neck supple. No tracheal deviation present. Cardiovascular: Normal rate, regular rhythm. No gallop. No friction rub. No murmur heard. Normal cap refill in all 4 extremities. Pulmonary/Chest: Effort normal. No stridor. No respiratory distress. No wheezes. No rales. No rhonchi . No tenderness. Abdominal: Soft. Bowel sounds normal. No distension. No mass. No tenderness. No rebound. No guarding. Musculoskeletal: Able to stand info out of her wheelchair with assistance of nurse. I am able to inspect her low back. She does not have any midline tenderness of the T-spine, L-spine. Posterior sacrum and pelvis is not tender. RUE: Normal range of motion. No tenderness. No deformity LUE: Normal range of motion. No tenderness. No deformity RLE: Normal range of motion. No edema. No tenderness. No deformity LLE: She is quite tender over the left lateral hip over the greater trochanter and there is a circular area of ecchymosis that is about 6 cm diameter directly over the drainage trochanter. I do not appreciate any underlying soft tissue fluid. There is no laxity of the skin that would clearly suggest a Solo Pino lesion. Lymph: Redness or ascending lymphangitis from the hip Neurological: Alert and oriented to person, place, and time. Normal strength. CN II-VII intact. No sensory deficit. GCS eye subscore is 4. GCS verbal subscore is 5. GCS motor subscore is 6. Normal coordination Skin: Skin is warm and dry. No rash noted. No pallor. Normal capillary refill. Psychiatric: Normal mood. Normal affect allowing for pain. Const: Vital Signs, click to edit/add: Vital Signs - 24 hr 05/17/25 12:32 05/17/25 15:16 Temperature 98.8 F Pulse Rate [Pulse Oximeter] 96 85 Respiratory Rate 16 16 Blood Pressure [Ri t Upper Arm] 114/79 136/90 H Pulse Oximetry 97 96 Oxygen Delivery Me thod Room Air Room Air Course Vital Signs Vital signs: Initial Vital Signs Temperature 98.8 F 05/17/25 12:32 Temperature Source Temporal Artery Scan 05/17/25 12:32 Pulse Rate 96 05/17/25 12:32 Respiratory Rate 16 05/17/25 12:32 Blood Pressure 114/79 05/17/25 12:32 Blood Pressure Mean 90 05/17/25 12:32 Blood Pressure Position Sitting 05/17/25 12:32 Pulse Oximetry 97 05/17/25 12:32 Oxygen Delivery Method Room Air 05/17/25 12:32 Vital Signs Temperature 98.8 F 05/17/25 12:32 Pulse Rate 96 05/17/25 12:32 Respiratory Rate 16 05/17/25 12:32 Blood Pressure 114/79 05/17/25 12:32 Pulse Oximetry 97 05/17/25 12:32 Oxygen Delivery Method Room Air 05/17/25 12:32 Temperature 98.8 F 05/17/25 12:32 Pulse Rate 85 05/17/25 15:16 Respiratory Rate 16 05/17/25 15:16 Blood Pressure 136/90 H 05/17/25 15:16 Pulse Oximetry 96 05/17/25 15:16 Oxygen Delivery Method Room Air 05/17/25 15:16 Medications Administered Medications: Discontinued Medications Generic Name Dose Route Start Last Admin Trade Name Darnell PRN Reason Stop Dose Admin Acetaminophen 1,000 mg 05/17/25 14:59 05/17/25 15:11 Acetaminophen 500 Mg Tablet PO 05/17/25 15:00 1,000 mg ONCE ONE Administration Lorazepam 1 mg 05/17/25 16:00 05/17/25 15:54 Lorazepam 1 Mg Tablet PO 05/17/25 16:01 1 mg ONCE ONE Administration Ondansetron HCl 4 mg 05/17/25 14:59 05/17/25 15:12 Ondansetron Odt 4 Mg Tab PO 05/17/25 15:00 4 mg ONCE ONE Administration Oxycodone HCl 5 mg 05/17/25 14:59 05/17/25 15:11 Oxycodone 5 Mg Tablet PO 05/17/25 15:00 5 mg ONCE ONE Administration Medical Decision Making [facility] Narrative Medical decision making narrative: Very pleasant 85-year-old female presenting to the ER today with her family from home. She had a mechanical trip and fall while visiting in [place] 2 days ago on Thursday. She reports that she was already evaluated in the ER in [facility] on the day of the injury and had imaging of her head and spine that was negative for any intracranial injury but did show an L5 compression fracture. After discharge she noticed significant left lateral hip pain that is been making it difficult for her to get around. She is not really having pain in the midline of her low back or other pain in her pelvis. She had already had imaging done in [facility] will a apparently of her hip and pelvis that were normal (sounds like she had a CT) and also had an x-ray done of her left hip in the [facility] clinic yesterday that was normal. Her left hip is been sewn painful she has been having trouble getting around her home for the past couple of days. With this sort of pain , and negative imaging so far, we were concerned about occult fracture. We were fortunately able to obtain an MRI of the patient's left hip today and is fortunately negative for any sign of occult fracture. Also no evidence for any Solo Pino lesion or other deep fluid collection. She does have clinical exam findings of a contusion/ecchymosis directly over the greater trochanter which may be partly contributing to her pain. She is not having numbness or weakness in the leg or any radicular leg pain/back pain to suggest that this is a lumbar spine radiculopathy. No evidence for compartment syndrome or ischemia affecting the left lower extremity. Discussed options for management. With this sort of developing pain and difficulty transferring at home we considered possible hospitalization for physical therapy and placement in rehab. However, the patient She feels comfortable enough going home. We will give her a slight increase in her chronic oxycodone (she has been taking 5 mg q.4 hours) will have her increase that up to 5-10 mg Q 4. Discussed opiate precautions with the patient in detail. She understands the risk drowsiness, confusion, delirium, gait instability as well as constipation an addiction. Precautions for return to the ER reviewed. If she worsens she will come back to the ER immediately. If she is not substantially improved within 48-72 hours, medical recheck is indicated. Imaging Data MR L hip: Attestation: I have reviewed the pertinent imaging results. Radiologist's impression: Findings: There is no acute fracture or malalignment. Partially imaged right total hip arthroplasty with resultant adjacent susceptibility artifact. There is moderate osteoarthrosis of the left hip with small foci of subchondral marrow edema. No significant joint effusion. Detailed evaluation of the tendons about the left hip is somewhat limited by artifact and poor signal to noise ratio. No gross abnormality or high-grade tendon tear. No significant fluid within the greater trochanteric bursa. Impression: No acute fracture or malalignment of the left hip. Moderate osteoarthrosis. Discharge Plan Discharge Clinical Impression: Contusion of hip, left Patient Disposition: Home, Self-Care Condition: Stable Instructions: Contusion in Adults (ED), Hip Contusion (ED) Additional Instructions: As we discussed, your were hip MRI looks good. No signs of any broken bone in your hip, femur, or pelvic bones. No signs of any major bruising or internal bleeding. At this point we suspect that her pain is probably due to a bad contusion the soft tissue. We anticipate (and hope!) this will heal over the next 48-72 hours. To manage the pain you can use oxycodone 5-10 mg every 4 hours if needed. Be careful, because oxycodone can cause dizziness, drowsiness, constipation, falls, and can be addictive. If you have uncontrolled pain, worsening trouble with mobility, or any problems, return to the ER right away. If you are not substantially improving within 3-4 days, please recheck with your doctor, or come back to the ER. Prescriptions: New oxycodone 5 mg capsule 5 - 10 mg PO Q4H PRN (Reason: pain) Qty: 10 0RF No Action acetaminophen 500 mg tablet 1,000 mg PO BID Rx Instructions: PLUS AN ADDITIONAL DOSE IN THE MIDDLE OF THE DAY NEEDED calcium carbonate-vitamin D3 200 mg-10 mcg (400 unit) capsule 2 cap PO DAILY cholecalciferol (vitamin D3) 50 mcg (2,000 unit) capsule 4,000 unit PO DAILY Culturelle 10 billion cell capsule 1 cap PO DAILY clopidogrel 75 mg Tablet 75 mg PO DAILY 20 Days Qty: 20 0RF rosuvastatin 20 mg tablet 20 mg PO HS Qty: 30 0RF losartan 50 mg tablet 50 mg PO DAILY albuterol sulfate 90 mcg/actuation HFA aerosol inhaler 1 - 2 puff INHALATION Q4H PRN (Reason: dyspnea) estradiol [Yuvafem] 10 mcg tablet 10 mcg vaginal 3XW diclofenac sodium 75 mg tablet,delayed release (DR/EC) 75 mg PO DAILY oxycodone 5 mg tablet 5 mg PO Q6H PRN (Reason: pain) cetirizine [24Hour Allergy] 10 mg tablet 10 mg PO DAILY PRN coQ10 (ubiquinol) [Qunol Eduardo CoQ10] 100 mg capsule 100 mg PO DAILY rosuvastatin 10 mg tablet 10 mg PO QPM Brilinta 90 mg tablet 90 mg PO BID oxycodone 5 mg capsule 5 mg PO Q6H PRN (Reason: pain) Qty: 14 0RF Follow Up/Referrals: Vaishali Baeza MD [Primary Care Provider, Family Practice] Stand Alone Forms: Desall Info Instructions
--- NOTE | 2025-05-17 14:59 | CRLHL7_ITS ---
For Patients: As a result of the Century Cures Act, medical imaging exams and procedure reports are released immediately into your electronic medical record. You may view this report before your referring provider. If you have questions, please contact your health care provider. Indication: Severe left hip pain with reported negative CT and negative radiograph Technique: Multiplanar multisequence images through the left hip were acquired without the administration of intravenous contrast. Comparison: None available. Findings: There is no acute fracture or malalignment. Partially imaged right total hip arthroplasty with resultant adjacent susceptibility artifact. There is moderate osteoarthrosis of the left hip with small foci of subchondral marrow edema. No significant joint effusion. Detailed evaluation of the tendons about the left hip is somewhat limited by artifact and poor signal to noise ratio. No gross abnormality or high-grade tendon tear. No significant fluid within the greater trochanteric bursa. Impression: No acute fracture or malalignment of the left hip. Moderate osteoarthrosis. Dictated by Therese Reid MD @ 05/17/2025 5:08:06 PM (Electronically Signed)
[2025-05-17] MEDS: ACETAMINOPHEN 500 MG TABLET 1000 MG PO (15:11)
[2025-05-17] MEDS: ONDANSETRON ODT 4 MG TAB PO (15:12)
[2025-05-17 15:16] VITALS: BP 136/90; PULSE 85; RESP 16; O2SAT 96
[2025-05-17 18:00] VITALS: PULSE 84; RESP 12; O2SAT 92
== END 2025-05-17 18:06 | disposition home or self-care (01) ==
PROVIDERS: Emergency Provider Emergency Medicine; PCP Family Medicine
DX: S70.02XA Contusion of left hip, initial encounter (principal); Z96.642 Presence of left artificial hip joint; W01.0XXA Fall on same level from slipping, tripping and stumbling without subsequent striking against object, initial encounter
CPT/HCPCS: 73721; 99283; 99284; A9270